=== PATIENT | male | born 1950 | race Caucasian/White ===

== ENCOUNTER 2022-02-25 13:59 | Emergency (ER) | payer MEDICARE, SELFPAY ==
[2022-02-25 14:06] VITALS: BP 138/79; PULSE 81; RESP 18; TEMP 36.4; O2SAT 99; BMI 24.4
--- NOTE | 2022-02-25 14:24 | CRLHL7_ITS ---
For Patients: As a result of the Century Cures Act, medical imaging exams and procedure reports are released immediately into your electronic medical record. You may view this report before your referring provider. If you have questions, please contact your health care provider. INDICATION: Chest pain. TECHNIQUE: Chest 2 views. COMPARISON: None. FINDINGS: Cardiovascular and mediastinum: Heart size and vasculature are normal in caliber and appearance. Lungs and pleural spaces: Lungs are clear. No sign of infiltrate or mass. No sign of pleural effusion. No pneumothorax. Bones and soft tissues: No significant findings. IMPRESSION: No acute or significant findings. Dictated by Vitaly De Jesus MD @ 02/25/2022 3:15:33 PM (Electronically Signed)
--- NOTE | 2022-02-25 14:24 | ED_ITS ---
HPI - Chest Pain General Date Seen: 02/25/22 <Jan Samaniego MD - Last Filed: 02/25/22 16:47> Chief Complaint: Chest Pain <Jan Samaniego MD - Last Filed: 02/25/22 16:47> Stated Complaint: Chest pain <Jan Samaniego MD - Last Filed: 02/25/22 16:47> Time Seen by Provider: 02/25/22 14:11 <Jan Samaniego MD - Last Filed: 02/25/22 16:47> Source: patient <Jan Samaniego MD - Last Filed: 02/25/22 16:47> Mode of arrival: ambulatory <Jan Samaniego MD - Last Filed: 02/25/22 16:47> Limitations: no limitations <Jan Samaniego MD - Last Filed: 02/25/22 16:47> History of Present Illness MD complaint: chest pain <Jan Samaniego MD - Last Filed: 02/25/22 16:47> Onset (ago): month(s) (1-2 months) <Jan Samaniego MD - Last Filed: 02/25/22 16:47> Timing of current episode: episodic <Jan Samaniego MD - Last Filed: 02/25/22 16:47> Prior episodes: Yes <Jan Samaniego MD - Last Filed: 02/25/22 16:47> Onset: other (Happens at rest and also with exertion) <Jan Samaniego MD - Last Filed: 02/25/22 16:47> Pain location: left chest and parasternal <Jan Samaniego MD - Last Filed: 02/25/22 16:47> Pain radiation: none <Jan Samaniego MD - Last Filed: 02/25/22 16:47> Severity: mild <Jan Samaniego MD - Last Filed: 02/25/22 16:47> Quality: tightness <Jan Samaniego MD - Last Filed: 02/25/22 16:47> Relieving factors: nothing and other (Seemingly improves with doing nothing at all.) <Jan Samaniego MD - Last Filed: 02/25/22 16:47> Exacerbating factors: nothing <Jan Samaniego MD - Last Filed: 02/25/22 16:47> Context: other (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) <Jan Samaniego MD - Last Filed: 02/25/22 16:47> Treatment prior to arrival: none <Jan Samaniego MD - Last Filed: 02/25/22 16:47> Risk Factors Coronary artery disease risk factors: none <Jan Samaniego MD - Last Filed: 02/25/22 16:47> Thoracic aortic dissection risk factors: none <Jan Samaniego MD - Last Filed: 02/25/22 16:47> Related Data Home Medications: Previous Rx's Medication Instructions Recorded alprazolam 1 mg tablet 1 mg PO QDAY PRN #30 tab 01/30/22 <Jan Samaniego MD - Last Filed: 02/25/22 16:47> Allergies/Adverse Reactions: Allergies Allergy/AdvReac Type Severity Reaction Status Date / Time No Known Drug Allergies Allergy Verified 02/25/22 14:06 <Jan Samaniego MD - Last Filed: 02/25/22 16:47> Review of Systems Status of ROS Reports: 10 or more systems reviewed and unremarkable except as noted in History and below <Jan Samaniego MD - Last Filed: 02/25/22 16:47> [facility] Medical History: Medical History (Updated 02/25/22 @ 18:18 by Ana Maria Matthews MD) Anxiety <Jan Samaniego MD - Last Filed: 02/25/22 16:47> Social History: Social History Smoking Status: Former smoker Second hand tobacco smoke exposure: No How often do you have a drink containing alcohol: never How often do you have six or more drinks on one occasion: Never AUDIT-C Alcohol total score: 0 Non-prescribed substance use: marijuana (any form) service: Yes <Jan Samaniego MD - Last Filed: 02/25/22 16:47> Exam Narrative Exam Narrative: Patient sitting in stable 1 in no apparent distress pupils equal round react to light there is no scleral icterus redness TMs are normal oropharynx is normal. A bit of a [place] field to the floor of his mouth and his anterior alize n. Consistent with previous radiation. Chest is clear bilaterally with no wheezes crackles noted, 2/6 systolic murmur, radiating to the aortic area but also to his left axilla. No palpable tenderness over his chest. Abdomen is soft there is no guarding no past with megaly bowel sounds are normal in organomegaly is noted. Extremities all move normally through full range of motion normal power in upper lower extremities normal pulses, and no edema. <Jan Samaniego MD - Last Filed: 02/25/22 16:47> Const Vital Signs, click to edit/add: Vital Signs - 24 hr 02/25/22 14:06 Temperature 97.5 F L Pulse Rate [Right Pulse Oximeter] 81 Respiratory Rate 18 Blood Pressure [Right Upper Arm] 138/79 Pulse Oximetry 99 <Jan Samaniego MD - Last Filed: 02/25/22 16:47> Vital Signs - 24 hr 02/25/22 14:06 Temperature 97.5 F L Pulse Rate [Right Pulse Oximeter] 81 Respiratory Rate 18 Blood Pressure [Right Upper Arm] 138/79 Pulse Oximetry 99 <Ana Maria Matthews MD - Last Filed: 02/25/22 18:26> Documenting provider has reviewed patient's vital signs: yes <Jan Samaniego MD - Last Filed: 02/25/22 16:47> Common normals: no apparent distress <Jan Samaniego MD - Last Filed: 02/25/22 16:47> Course Reevaluation(s) Reevaluation #2: Patient was signed out to me by Dr. Samaniego. Please see his note for full details. I was asked to follow up on his 2nd troponin as well as the CT scan of his chest. His 2nd troponin is 0. CT scan of his chest is read by Radiology as negative for pulmonary embolism or other acute findings. I have reviewed these results with the patient. I have clarified that while the troponins are negative, this does not mean that he could not have coronary artery disease, and would like him to follow up with Dr. Crain to arrange for stress testing. Dr. Samaniego has asked him to take 2 baby aspirin daily in the interim. If he were to develop severe persistent chest pain, shortness of breath, lightheadedness or fainting, etcetera, return at any time to the emergency department. He did have a question about his heart murmur, I have reviewed his previous echo in 2019 and he has mild mitral regurgitation as well as aortic stenosis. I have relayed that to him, and explained that neither of these are clinically significant at this time. <An aMaria Matthews MD - Last Filed: 02/25/22 18:26> Vital Signs Vital signs: Initial Vital Signs Temperature 97.5 F L 02/25/22 14:06 Temperature Source Temporal Artery Scan 02/25/22 14:06 Pulse Rate 81 02/25/22 14:06 Respiratory Rate 18 02/25/22 14:06 Blood Pressure 138/79 02/25/22 14:06 Blood Pressure Mean 98 02/25/22 14:06 Blood Pressure Position Sitting 02/25/22 14:06 Pulse Oximetry 99 02/25/22 14:06 Oxygen Delivery Method 02/25/22 14:06 Vital Signs Temperature 97.5 F L 02/25/22 14:06 Pulse Rate 81 02/25/22 14:06 Respiratory Rate 18 02/25/22 14:06 Blood Pressure 138/79 02/25/22 14:06 Pulse Oximetry 99 02/25/22 14:06 Temperature 97.5 F L 02/25/22 14:06 Pulse Rate 81 02/25/22 14:06 Respiratory Rate 18 02/25/22 14:06 Blood Pressure 138/79 02/25/22 14:06 Pulse Oximetry 99 02/25/22 14:06 <Jan Samaniego MD - Last Filed: 02/25/22 16:47> Initial Vital Signs Temperature 97.5 F L 02/25/22 14:06 Temperature Source Temporal Artery Scan 02/25/22 14:06 Pulse Rate 81 02/25/22 14:06 Respiratory Rate 18 02/25/22 14:06 Blood Pressure 138/79 02/25/22 14:06 Blood Pressure Mean 98 02/25/22 14:06 Blood Pressure Position Sitting 02/25/22 14:06 Pulse Oximetry 99 02/25/22 14:06 Oxygen Delivery Method 02/25/22 14:06 Vital Signs Temperature 97.5 F L 02/25/22 14:06 Pulse Rate 81 02/25/22 14:06 Respiratory Rate 18 02/25/22 14:06 Blood Pressure 138/79 02/25/22 14:06 Pulse Oximetry 99 02/25/22 14:06 Temperature 97.5 F L 02/25/22 14:06 Pulse Rate 81 02/25/22 14:06 Respiratory Rate 18 02/25/22 14:06 Blood Pressure 138/79 02/25/22 14:06 Pulse Oximetry 99 02/25/22 14:06 <Ana Maria Matthews MD - Last Filed: 02/25/22 18:26> MDM - Chest Pain MDM Narrative Medical decision making narrative: During the evaluation of this patient I considered multiple differential diagnosis is. The life-threatening differential diagnosis include coronary disease/[place], pulmonary embolism, pneumothorax, pneumonia, and aortic dissection. Other differential diagnosis included but were not limited to pericarditis, myocarditis, chest wall pain, GERD, esophageal rupture, rib fracture contusion, pleurisy, as well as other etiologies. <Jan Samaniego MD - Last Filed: 02/25/22 16:47> Medical Records Data Attestation: I reviewed the patient's medical records. <Jan Samaniego MD - Last Filed: 02/25/22 16:47> Lab Data Attestation: I reviewed the patient's lab results. <Jan Samaniego MD - Last Filed: 02/25/22 16:47> Labs: Lab Results 02/25/22 02/25/22 02/25/22 Range/Units 15:25 15:25 15:25 WBC 3.60 L (4.50-11.00) K/uL RBC 3.68 L (4.30-5.90) m/uL Hgb 12.4 L (13.5-17.5) gm/dL Hct 37.0 (37.0-53.0) % MCV 101 H (80-100) fL MCH 34 (26-34) pg MCHC 34 (32-36) gm/dL RDW Coeff of Jacinto 12.7 (11.5-15.5) % Plt Count 127 L (140-440) K/uL Neut % (Auto) 65.0 (42.0-72.0) % Lymph % (Auto) 17.8 L (20-44) % [place] % (Auto) 13.6 H (0.0-11.0) % Eos % (Auto) 2.2 (0.0-7.0) % Baso % (Auto) 1.1 (0.0-3.0) % Neut # (Auto) 2.30 (1.7-7.0) K/uL Lymph # (Auto) 0.60 L (0.90-2.90) K/uL [place] # (Auto) 0.50 (0.00-0.90) K/UL Eos # (Auto) 0.10 (0.00-0.50) K/uL Baso # (Auto) 0.00 (0.00-0.30) K/uL Abs Immat Gran (auto) 0.01 (0.00-0.30) K/uL INR 0.94 (0.91-1.10) APTT 25 (23-33) Seconds D-Dimer Quant (PE/DVT) 2.00 H (0.00-0.50) ug/ml Sodium 136 (135-149) mmol/L Potassium 4.7 (3.6-5.1) mmol/L Chloride 104 (96-114) mmol/L Carbon Dioxide 29 (20-32) mmol/L BUN 29 (7-30) mg/dL Creatinine 1.3 (0.5-1.5) mg/dL Estimated Creat Clear 52.25 Estimated GFR 58 ml/min Glucose 97 (60-115) mg/dL Calcium 9.3 (8.4-10.6) mg/dL NT-Pro-B Natriuret Pep 186 H (0-125) PG/mL POC Troponin I (0.01-0.04) ng/ml 02/25/22 02/25/22 Range/Units 15:25 17:10 WBC (4.50-11.00) K/uL RBC (4.30-5.90) m/uL Hgb (13.5-17.5) gm/dL Hct (37.0-53.0) % MCV (80-100) fL MCH (26-34) pg MCHC (32-36) gm/dL RDW Coeff of Jacinto (11.5-15.5) % Plt Count (140-440) K/uL Neut % (Auto) (42.0-72.0) % Lymph % (Auto) (20-44) % [place] % (Auto) (0.0-11.0) % Eos % (Auto) (0.0-7.0) % Baso % (Auto) (0.0-3.0) % Neut # (Auto) (1.7-7.0) K/uL Lymph # (Auto) (0.90-2.90) K/uL [place] # (Auto) (0.00-0.90) K/UL Eos # (Auto) (0.00-0.50) K/uL Baso # (Auto) (0.00-0.30) K/uL Abs Immat Gran (auto) (0.00-0.30) K/uL INR (0.91-1.10) APTT (23-33) Seconds D-Dimer Quant (PE/DVT) (0.00-0.50) ug/ml Sodium (135-149) mmol/L Potassium (3.6-5.1) mmol/L Chloride (96-114) mmol/L Carbon Dioxide (20-32) mmol/L BUN (7-30) mg/dL Creatinine (0.5-1.5) mg/dL Estimated Creat Clear Estimated GFR ml/min Glucose (60-115) mg/dL Calcium (8.4-10.6) mg/dL NT-Pro-B Natriuret Pep (0-125) PG/mL POC Troponin I 0.00 L 0.01 (0.01-0.04) ng/ml <Jan Smaaniego MD - Last Filed: 02/25/22 16:47> Lab Results 02/25/22 02/25/22 02/25/22 Range/Units 15:25 15:25 15:25 WBC 3.60 L (4.50-11.00) K/uL RBC 3.68 L (4.30-5.90) m/uL Hgb 12.4 L (13.5-17.5) gm/dL Hct 37.0 (37.0-53.0) % MCV 101 H (80-100) fL MCH 34 (26-34) pg MCHC 34 (32-36) gm/dL RDW Coeff of [place] 12.7 (11.5-15.5) % Plt Count 127 L (140-440) K/uL Neut % (Auto) 65.0 (42.0-72.0) % Lymph % (Auto) 17.8 L (20-44) % [place] % (Auto) 13.6 H (0.0-11.0) % Eos % (Auto) 2.2 (0.0-7.0) % Baso % (Auto) 1.1 (0.0-3.0) % Neut # (Auto) 2.30 (1.7-7.0) K/uL Lymph # (Auto) 0.60 L (0.90-2.90) K/uL [place] # (Auto) 0.50 (0.00-0.90) K/UL Eos # (Auto) 0.10 (0.00-0.50) K/uL Baso # (Auto) 0.00 (0.00-0.30) K/uL Abs Immat Gran (auto) 0.01 (0.00-0.30) K/uL INR 0.94 (0.91-1.10) APTT 25 (23-33) Seconds D-Dimer Quant (PE/DVT) 2.00 H (0.00-0.50) ug/ml Sodium 136 (135-149) mmol/L Potassium 4.7 (3.6-5.1) mmol/L Chloride 104 (96-114) mmol/L Carbon Dioxide 29 (20-32) mmol/L BUN 29 (7-30) mg/dL Creatinine 1.3 (0.5-1.5) mg/dL Estimated Creat Clear 52.25 Estimated GFR 58 ml/min Glucose 97 (60-115) mg/dL Calcium 9.3 (8.4-10.6) mg/dL NT-Pro-B Natriuret Pep 186 H (0-125) PG/mL POC Troponin I (0.01-0.04) ng/ml 02/25/22 02/25/22 Range/Units 15:25 17:10 WBC (4.50-11.00) K/uL RBC (4.30-5.90) m/uL Hgb (13.5-17.5) gm/dL Hct (37.0-53.0) % MCV (80-100) fL MCH (26-34) pg MCHC (32-36) gm/dL RDW Coeff of [place] (11.5-15.5) % Plt Count (140-440) K/uL Neut % (Auto) (42.0-72.0) % Lymph % (Auto) (20-44) % [place] % (Auto) (0.0-11.0) % Eos % (Auto) (0.0-7.0) % Baso % (Auto) (0.0-3.0) % Neut # (Auto) (1.7-7.0) K/uL Lymph # (Auto) (0.90-2.90) K/uL [place] # (Auto) (0.00-0.90) K/UL Eos # (Auto) (0.00-0.50) K/uL Baso # (Auto) (0.00-0.30) K/uL Abs Immat Gran (auto) (0.00-0.30) K/uL INR (0.91-1.10) APTT (23-33) Seconds D-Dimer Quant (PE/DVT) (0.00-0.50) ug/ml Sodium (135-149) mmol/L Potassium (3.6-5.1) mmol/L Chloride (96-114) mmol/L Carbon Dioxide (20-32) mmol/L BUN (7-30) mg/dL Creatinine (0.5-1.5) mg/dL Estimated Creat Clear Estimated GFR ml/min Glucose (60-115) mg/dL Calcium (8.4-10.6) mg/dL NT-Pro-B Natriuret Pep (0-125) PG/mL POC Troponin I 0.00 L 0.01 (0.01-0.04) ng/ml <Ana Maria Matthews MD - Last Filed: 02/25/22 18:26> Imaging Data Chest x-ray: Attestation: I have reviewed the pertinent imaging results. <Jan Samaniego MD - Last Filed: 02/25/22 16:47> My impression: No acute changes are noted on chest x-ray. <Jan Samaniego MD - Last Filed: 02/25/22 16:47> Radiologist's impression: Patient: AAKASH THRASHER Facility:[facility] Patient ID:?[id number] Site Patient ID:?[id number] Site :?[id number] Study:?XRay Chest 2 VIEWS-02/25/2022 3:12:37 PM Ordering Physician:Susan Montoya Final Report: INDICATION: Chest pain. TECHNIQUE: Chest 2 views. COMPARISON: None. FINDINGS: Cardiovascular and mediastinum: Heart size and vasculature are normal in caliber and appearance. Lungs and pleural spaces: Lungs are clear. No sign of infiltrate or mass. No sign of pleural effusion. No pneumothorax. Bones and soft tissues: No significant findings. IMPRESSION: No acute or significant findings. Dictated by Vitaly De Jesus MD @ 02/25/2022 3:15:33 PM (Electronic Signature) <Jan Samaniego MD - Last Filed: 02/25/22 16:47> ECG Data Attestation: I personally reviewed and interpreted this ECG as follows: <Jan Samaniego MD - Last Filed: 02/25/22 16:47> ECG interpretation date: 02/25/22 <Jan Samaniego MD - Last Filed: 02/25/22 16:47> ECG interpretation time: 15:36 <Jan Samaniego MD - Last Filed: 02/25/22 16:47> Prior ECG tracings: not available for review <Jan Samaniego MD - Last Filed: 02/25/22 16:47> Interpretation: EKG shows normal sinus rhythm with normal EKG with no acute ST wave changes. No old EKG to compare to. <Jan Samaniego MD - Last Filed: 02/25/22 16 :47> Discharge Plan Discharge Clinical Impression: Chest pain <Jan Samaniego MD - Last Filed: 02/25/22 16:47> Patient Disposition: Home, Self-Care <Jan Samaniego MD - Last Filed: 02/25/22 16:47> Condition: Stable <Jan Samaniego MD - Last Filed: 02/25/22 16:47> Instructions: Chest Pain (ED) <Jan Samaniego MD - Last Filed: 02/25/22 16:47> Additional Instructions: Follow-up with Dr. Crain in the next few days for recheck and to arrange a stress test. Take 2 baby aspirin a day as recommended by Dr. Samaniego. Review of your echo in 2020 showed mild aortic stenosis and mild mitral regurgitation. At this time neither of these findings is significant. If you have severe or persistent chest pain, shortness of breath, lightheadedness or fainting, or other worsening, return at any time to the emergency department. <Jan Samaniego MD - Last Filed: 02/25/22 16:47> Prescriptions: No Action alprazolam 1 mg tablet 1 mg PO QDAY PRN (Reason: anxiety) Qty: 30 0RF <Jan Samaniego MD - Last Filed: 02/25/22 16:47> Follow Up/Referrals: Stephon Crain MD [Primary Care Provider] - <Jan Samaniego MD - Last Filed: 02/25/22 16:47> Stand Alone Forms: [facility] Info Instructions <Jan Samaniego MD - Last Filed: 02/25/22 16:47>
[2022-02-25] MEDS: ASPIRIN 81 MG TAB.CHEW 324 MG PO (15:18)
[2022-02-25 15:30] VITALS: BP 154/91; PULSE 65; O2SAT 98
[2022-02-25 15:39] LABS: Basophils Percent Auto 1.1 % (0.0-3.0); Eosinophils Percent Auto 2.2 % (0.0-7.0); Hemoglobin* 12.4 gm/dL (13.5-17.5); Immature Granulocytes Abs Auto 0.01 K/uL (0.00-0.30); Lymphocytes Percent Auto 17.8 % (20-44); Mean Corpuscular HGB Conc 34 gm/dL (32-36); Mean Corpuscular Hemoglobin 34 pg (26-34); Mean Corpuscular Volume 101 fL (80-100); Monocytes Percent Auto 13.6 % (0.0-11.0); Platelet Count* 127 K/uL (140-440); RDW Coefficient of Variation % 12.7 % (11.5-15.5); Red Blood Count 3.68 m/uL (4.30-5.90)
[2022-02-25 15:43] LABS: Slide Review Reflex No
[2022-02-25 15:55] LABS: Chloride* 104 mmol/L (96-114); Sodium* 136 mmol/L (135-149)
[2022-02-25 15:56] LABS: Potassium* 4.7 mmol/L (3.6-5.1)
[2022-02-25 15:58] LABS: Blood Urea Nitrogen* 29 mg/dL (7-30); Carbon Dioxide* 29 mmol/L (20-32); Creatinine* 1.3 mg/dL (0.5-1.5); Est. Creatinine Clearance* 52.25; Estimated Glomerular Filt Rate 58 ml/min; INR 0.94 (0.91-1.10)
[2022-02-25 15:59] LABS: Calcium* 9.3 mg/dL (8.4-10.6); Glucose* 97 mg/dL (60-115); Partial Thromboplastin Time* 25 Seconds (23-33)
[2022-02-25 16:00] VITALS: BP 148/88; PULSE 62; O2SAT 98
[2022-02-25 16:08] LABS: NT Pro B Type NatriureticPept* 186 PG/mL (0-125)
--- NOTE | 2022-02-25 16:28 | CRLHL7_ITS ---
For Patients: As a result of the Century Cures Act, medical imaging exams and procedure reports are released immediately into your electronic medical record. You may view this report before your referring provider. If you have questions, please contact your health care provider. INDICATION: Elevated D-dimer with chest pain COMPARISON: Portions of a PET-CT dated October 03, 2021 TECHNIQUE: : CT examination of the chest was performed with the uneventful intravenous administration of 95 cc of Isovue 370 while thin axial sections were obtained from above the apices of the lungs to the lung bases. Please note that all CT scans at this facility use dose modulation, iterative reconstruction, and/or weight-based dosing when appropriate to reduce radiation dose to as low as reasonably achievable. FINDINGS: : HEART and MEDIASTINUM: The heart size is normal. There is no mediastinal or hilar adenopathy or mass. There is no pericardial effusion.Atherosclerotic vascular and aortic valvular calcifications PULMONARY ARTERIAL CIRCULATION: There is no visible intraluminal filling defect to suggest pulmonary embolus. LUNGS: The lungs show no focal consolidation or mass. The airways appear normal. Left lower lobe granuloma. Minimal linear atelectasis at the bases. PLEURAL SPACES: There is no pleural effusion, pneumothorax or pleural based mass. VISUALIZED UPPER ABDOMEN: Hepatic steatosis. Otherwise, the limited visualized upper abdominal structures appear normal. OSSEOUS STRUCTURES: Age-appropriate appearance. No acute fracture or destructive process. TUBES and LINES: None. IMPRESSION: 1. There is no finding of pulmonary embolus. 2. The lungs show no focal consolidation, infiltrate or mass. Normal pleural spaces. Evidence of remote granulomatous infection. 3. Hepatic steatosis. Please note that all CT scans at this facility use dose modulation, iterative reconstruction, and/or weight-based dosing when appropriate to reduce radiation dose to as low as reasonably achievable. Dictated by Moustapha Contreras MD @ 02/25/2022 5:42:21 PM (Electronically Signed)
[2022-02-25] MEDS: 0.9 % SODIUM CHLORIDE 500 ML 500 ML IV (17:14)
[2022-02-25 17:25] LABS: Troponin, Point-of-Care* 0.01 ng/ml (0.01-0.04)
[2022-02-25 17:30] VITALS: BP 160/91; PULSE 64; O2SAT 98
[2022-02-25 18:00] VITALS: BP 162/91; PULSE 64; O2SAT 98
== END 2022-02-25 18:27 | disposition home or self-care (01) ==
PROVIDERS: Family Medicine; Emergency Provider Emergency Medicine; PCP Internal Medicine
DX: R07.9 Chest pain, unspecified (principal)
CPT/HCPCS: 36415; 71046; 71260; 80048; 83880; 84484; 85025; 85379; 85610; 85730; 93005; 96360; 99284; 99285; A9270; J7120; Q9967

== ENCOUNTER 2022-03-06 12:43 | Outpatient (CLI) | payer MEDICARE, SELFPAY ==
[2022-03-06 13:54] VITALS: BP 146/82; PULSE 87; RESP 18
--- NOTE | 2022-03-06 13:55 | P.STN_ITS ---
Stress Test Note Date Time Seen by Provider: 13:40 Date Seen: 03/06/22 Date of test: 03/06/22 Providers Referring provider: Stephon Crain Primary care provider: Stephon Crain Stress test physician: Lalitha Gloria Stress Test Note Stress test ordered: Stress Echo Indication for test: Chest pain, patient's cardiac stress test medical history form reviewed. Stress test medicine: None Results discussion: Resting EK beats per minute, sinus rhythm Resting blood pressure: 171/89 Stress test: Patient exercised on the treadmill following standard Aric protocol. He exercised to 7 minutes 26 seconds, stopped due to reaching his heart rate and being too dyspneic from the level of exertion. He did not experience any chest pain. Patient had some premature supraventricular beats in recovery as well as an occasional PVC. No arrhythmia noted. He achieved 8.9 Mets. He had a maximum heart rate of 143 which was 114% of a calculated target heart rate of 125. His calculated maximal heart rate was 147. His rate pressu re product was 21,344. No ischemic changes noted based on EKG criteria. He had good heart rate and blood pressure recovery. Impression: Subjectively negative, objectively negative EKG portion of this stress test for ischemia. Follow up suggested: Await echo images to be read by Cardiology. Dr. Ibrahima patterson should get a formal report and patient should hear from him. In the meantime, patient will be discharged to home. I have discussed activity as tolerated, do not recommend strenuous activity as to provoke any symptoms. If ever he has any chest pain develops, any sense of any arrhythmias or difficulty breathing, he is to seek evaluation in the emergency room.
--- OUTSIDE RECORDS SUMMARY | 2022-03-12 04:10 | XMS_ITS | Continuity of Care Document ---
:1950 Author Organization [facility] Care Team Providers Name Role Phone [facility] Unavailable Unavailable Problems Combined list of problems from Department of Defense and Veterans Affairs facilities. It does not include entries that were removed or entered in error. 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 2020 Entered ( CBOC) By: JEREMIAH WALKER Comment: aortic sinus 4.2 cm 07/2020 Aortic valve Active Condition Jan 15, [facility] stenosis 2020 Entered (CBOC) By: JEREMIAH WALKER Comment: mild per 07/2020 echo Benign prostatic Active Condition MEIR BUENROSTRO hyperplasia (SNOMED (CBOC) [place] 468101606) Cataract nos Active Condition [place] [facility] Erectile Active Condition CARY[place] dysfunction (SNOMED (CBOC) CT 082323868) Hydrocele of testis Active Condition [place] (CBOC) Hyperlipidemia Active Condition [place] STER (CBOC) Hypertension Active Condition [facility] [facility] (SNOMED CT (CBOC) 82301851) Impaired fasting Active Condition MEIR BUENROSTRO glucose (CBOC) 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, 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 2020 Entered (CBOC) By: JEREMIAH WALKER Comment: 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 Obesity Active Condition CARY[place] (CBOC) Polyp of colon Active Condition [place] STER (SNOMED CT (CBOC) 77608796) Alcohol Abuse Inactive Condition 06/07/2013 [place] (ICD-9-CM 305.00) (C BOC) Anxiety State, Inactive Condition 06/07/2013 [place] unspec (CBOC) Bunion Inactive Condition 05/17/2018 Jun 07, [facility] [place] 2012 Entered (CBOC) By: SAVANNAH BOYD Comment: Right Depressive Disorder Inactive Condition 06/07/2013 [place] NOS (CBOC) Dermatitis * Inactive Condition 06/07/[address] (ICD-9-CM 692.9) (CB OC) Impotence of Inactive Condition 05/20/2019 [place] organic origin [facility] (ICD-9-CM 607.84) Marijuana Inactive Condition 06/07/2013 [place] Dependence (CBOC) Continuous (ICD-9-CM 304.31) Obesity * (ICD-9-CM Inactive Condition 06/07/2013 CARY[place] 278.00) (CBOC) Diagnosis: active Diagnosis [place] ICD-10-CM Z71.89 [facility] Other specified counselingwith Provider Comments: Other specified counseling Diagnosis: active Diagnosis [place] IS ICD-10-CM D64.9 [facility] CS Anemia, unspecifiedwith Provider Comments: Anemia, unspecified Diagnosis: active Diagnosis [place] ICD-10-CM Z23 (CBOC) Encounter for immunizationwith Provider Comments: Encounter for any immunization Diagnosis: active Diagnosis [place] ICD-10-CM R21 Rash ( CBOC) and other nonspecific skin eruptionwith Provider Comments: Rash and other Nonspecific Skin Eruption Diagnosis: active Diagnosis [place] ICD-10-CM Z00.00 (CB OC) Encntr for general adult medical exam w/o abnormal findingswith Provider Comments: Encntr for general adult medical exam w/o abnormal findings Medications Combined list of outpatient medications from Department of Defense and Veterans Affairs facilities. Medications provided include 1) outpatient medications from the last 15 months, and 2) patient-reported medications. Medication Details Route Status Patient Prescription Prescription Last Ordering Order Source Instructions Expires Number Dispense Provider Date Date ALPRAZOLAM TAKE ACTIVE SHRUTHIEAR 07/16/ MEIR HEST TAB 0.5MG IF LE C 2016 ER NEEDED (CBOC) FOR ANXIETY ASPIRIN TAKE ONE ORALLY ACTIVE MAYCO WALKER 05/17/ RO CHEST 81MG TAB,EC TABLET 2017 ER BY MOUTH (CBOC) ATORVASTATI TAKE ORALLY ACTIVE 11/27/2022 [id number] AARON CHR 11/26/ [place] CA 20MG ONE-HALF 2 2021 ER TAB TABLET (CBOC) BY MOUTH EVERY DAY FOR CHOLESTE ROL CAMPHOR APPLY TOPICA ACTIVE 11/23/2022 [id number] AARON,CHR 11/26/ [facility] 0.5%/MENTHO THIN LLY 2 2021 ER L 0.5% LAYER (CBOC) LOTION TOPICALL Y THREE TIMES A DAY NEEDED FOR ITCHING CYANOCOBALA TAKE ONE ORALLY ACTIVE MAYCO WALKER 11/26 / [facility] MIN 1000MCG TABLET IS2021 ER TAB BY MOUTH (CBOC) EVERY DAY FINASTERIDE TAKE ONE ORALLY ACTIVE LAZER,CHR 11/26 / [facility] 5MG TAB TABLET IS2021 ER BY MOUTH (CBOC) EVERY DAY FOLIC ACID TAKE ONE ORALLY ACTIVE LAZER,CHR 11/26/ [facility] 1MG TAB TABLET IS2021 ER BY MOUTH (CBOC) EVERY DAY LORATADINE TAKE ONE ORALLY ACTIVE 11/23/2022 [id number] LA ZER,CHR 11/26/ [facility] 10MG TAB TABLET 2 2021 ER BY MOUTH (CBOC) EVERY DAY MULTIVITAMI TAKE ONE ORALLY ACTIVE LAZER,CHR 05/17 / [place] NS CAP/TAB TABLET 2017 ER BY MOUTH (CBOC) EVERY DAY TRIAMCINOLO APPLY TOPICA ACTIVE 11/23/2022 [id number] LAZER, CHR 11/26/ [place] THIN LLY 2 2021 ER ACETONIDE LAYER (CBOC) 0.1% TOPICALL CREAM,TOP Y TWICE A DAY AVOID FACE,HARISH IN and ARMPITS *FOR EXTERNAL USE ONLY APPLY TO RASH VANICREAM APPLY TOPICA ACTIVE 11/23/2022 [id number] LAZER,CH R 11/26/ [place] THIN LLY 2 2021 ER LAYER (CBOC) TOPICALL Y TWICE A DAY FOR DRY SKIN Allergies, Adverse Reactions, Alerts Combined list of allergies from Department of Defense and Veterans Affairs facilities. It does not include entries that were removed or entered in error. Substance Category Reaction Severity Reaction Status Date Comments S ource type Reported DOXAZOSIN Propensity Anxiety Propensity active [place] to adverse to adverse 1 S [employer] [facility] [facility] reactions reactions to drug to drug (finding) (finding) Immunizations Combined list of available immunizations from the Department of Defense and Veterans Affairs facilities. Immunization Series Date Administered Site Reaction Lot CVX Drug St atus Comments Source Given By Number Code Cold Meat Cook ZOSTER 2 complet [facility] EST RECOMBINANT 2021 ed ER (CBOC) ZOSTER 1 complet [place] EST RECOMBINANT 2021 ed ER (CBOC) COVID-19 3 complet [place] ([employer]), 2020 ed [place] [facility] MRNA, LNP-S, H CS PF, 30 MCG/0.3 ML DOSE INFLUENZA, complet [facility] UNSPECIFIED 2020 ed PH ARMAC FORMULATION Y COVID-19 2 complet [place] (PFIZER), 2020 ed [place] VA MRNA, LNP-S, H CS PF, 30 MCG/0.3 ML DOSE COVID-19 1 complet [place] (PFIZER), 2020 ed [place] VA MRNA, LNP-S, H CS PF, 30 MCG/0.3 ML DOSE INFLUENZA, complet [facility] INJECTABLE, 2019 ed ER QUADRIVALENT, (CBOC) PRESERVATIVE FREE INFLUENZA, complet [place] SEASONAL, 2018 ed ER INJECTABLE, (C BOC) PRESERVATIVE FREE INFLUENZA, complet [place] SEASONAL, 2017 ed ER INJECTABLE, (C BOC) PRESERVATIVE FREE INFLUENZA, complet [facility] HIGH DOSE 2017 ed ER SEASONAL (CBOC ) TD (ADULT), 2 complet per MIIC [place] LF TETANUS 2017 ed DEBBIE S VA TOXOID, HCS PRESERVATIVE FREE, ADSORBED INFLUENZA, complet [place] HIGH DOSE 2016 ed ER SEASONAL (CBOC ) PNEUMOCOCCAL complet wyet h [facility] CONJUGATE PCV 2015 ed pharm. , ER 13 [id number], (CBOC) 4-2016 INFLUENZA, complet MIIC [place] SEASONAL, 2014 ed [facility] INJECTABLE HCS INFLUENZA, complet pt [place] UNSPECIFIED 2013 ed reportin g [facility] FORMULATION HC S INFLUENZA, complet [place] UNSPECIFIED 2012 ed ER FORMULATION (C BOC) PNEUMOCOCCAL, complet [employer] and [place] UNSPECIFIED 2012 ed Co[employer] Inc ER FORMULATION Lot (C BOC) #[id number] Exp. 08/06/2014 INFLUENZA, complet [place] UNSPECIFIED 2011 ed ER FORMULATION (C BOC) INFLUENZA, complet [place] UNSPECIFIED 2010 ed ER FORMULATION (C BOC) ZOSTER LIVE complet [employer] and [facility] 2010 ed [employer] ER [id number] (CBOC) 03/19/12 INFLUENZA, complet [place] UNSPECIFIED 2009 ed OL IS [facility] FORMULATION HC S TDAP complet [place] 2006 ed OL[place] MS HCS TD(ADULT) complet [place] UNSPECIFIED 2004 ed [place] [facility] FORMULATION HC S Results Combined list of recent chemistry, hematology and other laboratory results from Department of Defense and Veterans Affairs, ranging from 15 months to all on record, depending upon the facility. Order Results Value Reference Date Interpretation Specimen Commen ts Source Name Range B 12 COBALAMIN 649 213 - 816 01/23 Specimen Typ e: SERUM CARY[place] (VITAMIN /2021 No comment ente red. (CBOC) B12) Ordering Provid er: AURA WALKER [MASS/VOLU Report Relea sed Date/Time: Nov 26, 2021 07:53 AM ME] IN Reporting Lab: [facility] SERUM OR [address] [place] [facility] [address] PLASMA Performing Lab: [facility] [address] [place] [address] CBC & LEUKOCYTES 4.63 4.0 - 11.0 01/23 Specimen T ype: BLOOD [place]ARY[place] DIFF [#/VOLUME] /2021 Comment: Aut omated Differential Performed (CBOC) IN BLOOD Ordering Provi payton: AURA WALKER BY Report Released Date/Time: Nov 26, 2021 07:53 AM AUTOMATED Reporting Lab : [facility] [address] [place] [address] Performing Lab: [facility] [address] [place] [address] CBC & ERYTHROCYT 3.64 4.6 - 6.2 01/23 L Specimen Ty pe: BLOOD [place]ARY[place] DIFF ES /2021 Comment: Automa adama Differential Performed (CBOC) [#/VOLUME] Ordering Pro vider: AURA WALKER IN BLOOD Report Release d Date/Time: Nov 26, 2021 07:53 AM BY Reporting Lab: [facility] AUTOMATED [place] [address] COUNT Performing Lab: [facility] [address] [place] [address] CBC & HEMOGLOBIN 12.3 13.5 - 01/23 L Specimen Type : BLOOD [place]ARY[place] DIFF [MASS/VOLU 17.9 /2021 Comment: Aut omated Differential Performed (CBOC) ME] IN Ordering Provid er: AURA WALKER BLOOD Report Released Date/Time: Nov 26, 2021 07:53 AM Reporting Lab: [facility] [address] [place] [facility] [address] Performing Lab: [facility] [address] [place] [facility] [address] CBC & HEMATOCRIT 36.8 41 - 54 01/23 L Specimen Type : BLOOD [place] DIFF [VOLUME /2021 Comment: Automa adama Differential Performed (CBOC) FRACTION] Ordering Prov ider: AURA WALKER OF BLOOD Report Release d Date/Time: Nov 26, 2021 07:53 AM BY Reporting Lab: [facility] AUTOMATED [address] [place] [facility] [address] COUNT Performing Lab: [facility] [address] [place] [facility] [address] CBC & MCV 101.1 80 - 100 01/23 H Specimen Type: BLOOD [place]ARY[place] DIFF [ENTITIC /2021 Comment: Autom ated Differential Performed (CBOC) VOLUME] BY Ordering Pro vider: AURA WALKER AUTOMATED Report Releas ed Date/Time: Nov 26, 2021 07:53 AM COUNT Reporting Lab: [facility] [address] [place] [facility] [address] Performing Lab: [facility] [address] [place] [facility] [address] CBC & MCH 33.8 27 - 33 01/23 H Specimen Type: B LOOD CARYL DIFF [ENTITIC /2021 Comment: Autom ated Differential Performed (CBOC) MASS] BY Ordering Provi payton: AURA WALKER AUTOMATED Report Releas ed Date/Time: Nov 26, 2021 07:53 AM COUNT Reporting Lab: [facility] [address] [place] [address] Performing Lab: [facility] [address] [place] [facility] [address] CBC & MCHC 33.4 32.0 - 01/23 Specimen Type: B LOOD CARY[place] DIFF [MASS/VOLU 37.5 /2021 Comment: Aut omated Differential Performed (CBOC) ME] BY Ordering Provid er: AURA WALKER AUTOMATED Report Releas ed Date/Time: Nov 26, 2021 07:53 AM COUNT Reporting Lab: [facility] [address] [place] [facility] [address] Performing Lab: [facility] [address] [place] [facility] [address] CBC & PLATELETS 156 150 - 400 01/23 Specimen Typ e: BLOOD CARYL DIFF [#/VOLUME] /2021 Comment: Aut omated Differential Performed (CBOC) IN BLOOD Ordering Provi payton: AURA WALKER BY Report Released Date/Time: Nov 26, 2021 07:53 AM AUTOMATED Reporting Lab : [facility] [address] [place] [address] Performing Lab: [facility] [address] [place] [address] CBC & PLATELET 10.7 7.4 - 10.4 01/23 H Specimen Typ e: BLOOD [place]ARY[place] DIFF MEAN /2021 Comment: Automa adama Differential Performed (CBOC) VOLUME Ordering Provid er: AURA WALKER [ENTITIC Report Release d Date/Time: Nov 26, 2021 07:53 AM VOLUME] IN Reporting La b: [facility] BLOOD BY [address] [place] [address] AUTOMATED Performing La b: [facility] [address] [place] [address] CBC & NEUTROPHIL 72.6 01/23 Specimen Type : BLOOD [place] DIFF S/100 /2021 Comment: Automa adama Differential Performed (CBOC) LEUKOCYTES Ordering Pro vider: AURA WALKER IN BLOOD Report Release d Date/Time: Nov 26, 2021 07:53 AM BY MANUAL Reporting Lab : [facility] [address] [place] [address] Performing Lab: [facility] [address] [place] [address] CBC & LYMPHOCYTE 15.1 01/23 Specimen Type : BLOOD [place] DIFF S/100 /2021 Comment: Automa adama Differential Performed (CBOC) LEUKOCYTES Ordering Pro vider: AURA WALKER IN BLOOD Report Release d Date/Time: Nov 26, 2021 07:53 AM BY MANUAL Reporting Lab : [facility] [address] [place] [address] Performing Lab: [facility] [address] [place] [address] CBC & MONOCYTES/ 7.8 01/23 Specimen Type : BLOOD [place] DIFF 100 /2021 Comment: Automa adama Differential Performed (CBOC) LEUKOCYTES Ordering Pro vider: AURA WALKER IN BLOOD Report Release d Date/Time: Nov 26, 2021 07:53 AM BY Reporting Lab: [facility] [place] [address] COUNT Performing Lab: [facility] [address] [place] [address] CBC & EOSINOPHIL 3.0 01/23 Specimen Type : BLOOD [place]ARY[place] DIFF S/100 /2021 Comment: Automa adama Differential Performed (CBOC) LEUKOCYTES Ordering Pro vider: AURA WALKER IN BLOOD Report Release d Date/Time: Nov 26, 2021 07:53 AM BY Reporting Lab: [facility] AUTOMATED [facility] [address] COUNT Performing Lab: [facility] [address] [place] [facility] [address] CBC & BASOPHILS/ 1.5 01/23 Specimen Type : BLOOD CARY[place] DIFF 100 /2021 Comment: Automa adama Differential Performed (CBOC) LEUKOCYTES Ordering Pro vider: AURA WALKER IN BLOOD Report Release d Date/Time: Nov 26, 2021 07:53 AM BY MANUAL Reporting Lab : [facility] [address] [place] [facility] [address] Performing Lab: [facility] [address] [place] [facility] [address] CBC & ERYTHROCYT 13.3 11.5 - 01/23 Specimen Type : BLOOD [place] DIFF E 14.5 /2021 Comment: Automa adama Differential Performed (CBOC) DISTRIBUTI Ordering Pro vider: AURA WALKER ON WIDTH Report Release d Date/Time: Nov 26, 2021 07:53 AM [RATIO] BY Reporting La b: [facility] AUTOMATED [facility] [address] COUNT Performing Lab: [facility] [address] [place] [facility] [address] CBC & LYMPHOCYTE 0.70 1.0 - 4.0 01/23 L Specimen Ty pe: BLOOD CARY[place] DIFF S /2021 Comment: Automa adama Differential Performed (CBOC) [#/VOLUME] Ordering Pro vider: AURA WALKER IN BLOOD Report Release d Date/Time: Nov 26, 2021 07:53 AM BY Reporting Lab: [facility] AUTOMATED [facility] [address] COUNT Performing Lab: [facility] [address] [place] [facility] [address] CBC & MONOCYTES 0.36 0.1 - 1.0 01/23 Specimen Typ e: BLOOD CARYL DIFF [#/VOLUME] /2021 Comment: Aut omated Differential Performed (CBOC) IN BLOOD Ordering Provi payton: AURA WALKER BY Report Released Date/Time: Nov 26, 2021 07:53 AM AUTOMATED Reporting Lab : [facility] [address] [place] [address] Performing Lab: [facility] [place] [address] CBC & NEUTROPHIL 3.36 2.0 - 7.7 01/23 Specimen Ty pe: BLOOD CARYL DIFF S /2021 Comment: Automa adama Differential Performed (CBOC) [#/VOLUME] Ordering Pro vider: AURA WALKER IN BLOOD Report Release d Date/Time: Nov 26, 2021 07:53 AM BY Reporting Lab: [facility] AUTOMATED [address] [place] [facility] [address] COUNT Performing Lab: [facility] [address] [place] [facility] [address] CBC & EOSINOPHIL 0.14 0 - 0.5 01/23 Specimen Type : BLOOD CARYL DIFF S /2021 Comment: Automa adama Differential Performed (CBOC) [#/VOLUME] Ordering Pro vider: AURA WALKER IN BLOOD Report Release d Date/Time: Nov 26, 2021 07:53 AM BY Reporting Lab: [facility] AUTOMATED [address] [place] [facility] [address] COUNT Performing Lab: [facility] [address] [place] [facility] [address] CBC & BASOPHILS 0.07 0 - 0.2 01/23 Specimen Type: BLOOD CARYL DIFF [#/VOLUME] /2021 Comment: Aut omated Differential Performed (CBOC) IN BLOOD Ordering Prov ider: AURA WALKER BY Report Released Date/Time: Nov 26, 2021 07:53 AM AUTOMATED Reporting Lab : [facility] [address] [place] [facility] [address] Performing Lab: [facility] [address] [place] [facility] [address] CBC & IG(META,MY 0.0 01/23 Specimen Type : BLOOD CARYL DIFF PRESTON,PRO) /2021 Comment: Autom ated Differential Performed (CBOC) Ordering Provid er: AURA WALKER Report Released Date/Time: Nov 26, 2021 07:53 AM Reporting Lab: [facility] [address] [place] [facility] [address] Performing Lab: [facility] [address] [place] [facility] [address] CBC & IMMATURE 0.00 0 - 0.1 01/23 Specimen Type: BLOOD CARYL DIFF GRANULOCYT /2021 Comment: Aut omated Differential Performed (CBOC) ES Ordering Provid er: AURA WALKER [PRESENCE] Report Relea sed Date/Time: Nov 26, 2021 07:53 AM IN BLOOD Reporting Lab: [facility] BY [address] [place] [address] AUTOMATED Performing La b: [facility] [address] [place] [address] CBC & RETICULOCY 39.6 28.2 - 01/23 H Specimen Type : BLOOD CARYL DIFF TE 36.6 /2021 Comment: Automa adama Differential Performed (CBOC) PRODUCTION Ordering Pro vider: AURA WALKER INDEX Report Released Date/Time: Nov 26, 2021 07:53 AM Reporting Lab: [facility] [address] [place] [address] Performing Lab: [facility] [address] [place] [address] FOLATE FOLATE 17.0 7.0 01/23 Specimen Type: S LINDY CARYL [MASS/VOLU /2021 No comment en tered. (CBOC) ME] IN Ordering Provid er: AURA WALKER SERUM OR Report Release d Date/Time: Nov 26, 2021 07:53 AM PLASMA Reporting Lab: [facility] [address] [place] [address] Performing Lab: [facility] [address] [place] [address] IRON IRON 137 65 - 175 01/23 Specimen Type: SERUM CARYL GROUP [MASS/VOLU /2021 No comment en tered. (CBOC) ME] IN Ordering Provid er: AURA WALKER SERUM OR Report Release d Date/Time: Nov 26, 2021 07:53 AM PLASMA Reporting Lab: [facility] [address] [place] [address] Performing Lab: [facility] [address] [place] [address] IRON IRON 348 250 - 425 01/23 Specimen Type: SERUM CARYL GROUP BINDING /2021 No comment enter ed. (CBOC) CAPACITY Ordering Provi payton: AURA WALKER [MASS/VOLU Report Relea sed Date/Time: Nov 26, 2021 07:53 AM ME] IN Reporting Lab: [facility] SERUM OR [address] [place] [address] PLASMA Performing Lab: [facility] [address] [place] [address] IRON FERRITIN 69.6 21.8 - 01/23 Specimen Type: SERUM CARYL GROUP [MASS/VOLU 274.7 No comment en tered. (CBOC) ME] IN Ordering Provid er: AURA WALKER SERUM OR Report Release d Date/Time: Nov 26, 2021 07:53 AM PLASMA Reporting Lab: [facility] [address] [place] [facility] [address] Performing Lab: [facility] [address] [place] [facility] [address] IRON IRON 39 20 - 50 01/23 Specimen Type: S LINDY CARYL GROUP SATURATION /2021 No comment en tered. (CBOC) Ordering Provid er: AURA WALKER Report Released Date/Time: Nov 26, 2021 07:53 AM Reporting Lab: [facility] [address] [place] [facility] [address] Performing Lab: [facility] [address] [place] [facility] [address] IRON TRANSFERRI 278 163 - 382 01/23 Specimen Ty pe: SERUM CARYL GROUP N /2021 No comment enter ed. (CBOC) [MASS/VOLU Ordering Pro vider: AURA WALKER ME] IN Report Released Date/Time: Nov 26, 2021 07:53 AM SERUM OR Reporting Lab: [facility] PLASMA [place] [address] Performing Lab: [facility] [place] [address] PERIPHERA ERYTHROCYT SLIDES 01/23 Specimen Ty pe: BLOOD CARYL L SMEAR E MADE No comment enter ed. (CBOC) PATHOLOGI MORPHOLOGY Ordering P rovider: AURA WALKER ST REVIEW FINDING Report Releas ed Date/Time: Nov 26, 2021 07:53 AM [IDENTIFIE Reporting La b: [facility] R] IN [place] [address] BLOOD Performing Lab: [facility] [address] [place] [facility] [address] RETICS RETICULOCY 0.0582 0.0300 - 01/23 Specimen Typ e: BLOOD CARYL BRII/100 0.1000 /2021 Comment: Automa adama Differential Performed (CBOC) ERYTHROCYT Ordering Pro vider: AURA WALKER ES IN Report Released Date/Time: Nov 26, 2021 07:53 AM BLOOD BY Reporting Lab: [facility] AUTOMATED [address] [facility] [address] COUNT Performing Lab: [facility] [address] [place] [address] RETICS RETICULOCY 1.60 0.6 - 2.0 01/23 Specimen Ty pe: BLOOD CARYL BRII/100 /2021 Comment: Automa adama Differential Performed (CBOC) ERYTHROCYT Ordering Pro vider: AURA WALKER ES IN Report Released Date/Time: Nov 26, 2021 07:53 AM BLOOD BY Reporting Lab: [facility] AUTOMATED [address] [place] [facility] [address] COUNT Performing Lab: [facility] [address] [place] [facility] [address] RETICS IMMATURE 9.4 1.0 - 14.0 01/23 Specimen Typ e: BLOOD CARYL RETICULOCY /2021 Comment: Aut omated Differential Performed (CBOC) BRII/RETICU Ordering Pro vider: AURA WALKER LOCYTES.TO Report Relea sed Date/Time: Nov 26, 2021 07:53 AM MAYANK IN Reporting Lab: [facility] BLOOD [address] [place] [facility] [address] Performing Lab: [facility] [address] [place] [facility] [address] RETICS RETICULOCY 39.6 28.2 - 01/23 H Specimen Type : BLOOD CARYL TE 36.6 /2021 Comment: Automa adama Differential Performed (CBOC) PRODUCTION Ordering Pro vider: AURA WALKER INDEX Report Released Date/Time: Nov 26, 2021 07:53 AM Reporting Lab: [facility] [address] [place] [facility] [address] Performing Lab: [facility] [address] [place] [facility] [address] CBC LEUKOCYTES 2.88 4.0 - 11.0 11/22 L Specimen T ype: BLOOD CARYL [#/VOLUME] /2021 No comment en tered. (CBOC) IN BLOOD Ordering Provi payton: AURA WALKER BY Report Released Date/Time: Nov 22, 2021 09:52 AM AUTOMATED Reporting Lab : [facility] [address] [place] [facility] [address] Performing Lab: [facility] [address] [place] [facility] [address] CBC ERYTHROCYT 3.65 4.6 - 6.2 11/22 L Specimen Ty pe: BLOOD CARYL ES /2021 No comment enter ed. (CBOC) [#/VOLUME] Ordering Pro vider: AURA WALKER IN BLOOD Report Release d Date/Time: Nov 22, 2021 09:52 AM BY Reporting Lab: [facility] [address] [facility] [address] COUNT Performing Lab: [facility] [place] [address] CBC HEMOGLOBIN 12.0 13.5 - 11/22 L Specimen Type : BLOOD CARYL [MASS/VOLU 17.9 /2021 No comment en tered. (CBOC) ME] IN Ordering Provid er: AURA WALKER BLOOD Report Released Date/Time: Nov 22, 2021 09:52 AM Reporting Lab: [facility] [address] [place] [facility] [address] Performing Lab: [facility] [address] [place] [address] CBC HEMATOCRIT 36.1 41 - 54 11/22 L Specimen Type : BLOOD CARYL [VOLUME /2021 No comment enter ed. (CBOC) FRACTION] Ordering Prov ider: AURA WALKER OF BLOOD Report Release d Date/Time: Nov 22, 2021 09:52 AM BY Reporting Lab: [facility] [address] COUNT Performing Lab: [facility] ONE [place] [address] CBC MCV 98.9 80 - 100 11/22 Specimen Type: BLOOD CARYL [ENTITIC /2021 No comment ente red. (CBOC) VOLUME] BY Ordering Pro vider: AURA WALKER AUTOMATED Report Releas ed Date/Time: Nov 22, 2021 09:52 AM COUNT Reporting Lab: [facility] [address] [place] [facility] [address] Performing Lab: [facility] [address] [place] [facility] [address] CBC MCH 32.9 27 - 33 11/22 Specimen Type: B LOOD CARYL [ENTITIC /2021 No comment ente red. (CBOC) MASS] BY Ordering Provi payton: AURA WALKER AUTOMATED Report Releas ed Date/Time: Nov 22, 2021 09:52 AM COUNT Reporting Lab: [facility] [address] [place] [facility] [address] Performing Lab: [facility] [address] [place] [facility] [address] CBC MCHC 33.2 32.0 - 11/22 Specimen Type: B LOOD CARYL [MASS/VOLU 37.5 /2021 No comment en tered. (CBOC) ME] BY Ordering Provid er: AURA WALKER AUTOMATED Report Releas ed Date/Time: Nov 22, 2021 09:52 AM COUNT Reporting Lab: [facility] [address] [place] [address] Performing Lab: [facility] [address] [place] [address] CBC PLATELETS 152 150 - 400 11/22 Specimen Typ e: BLOOD CARYL [#/VOLUME] /2021 No comment en tered. (CBOC) IN BLOOD Ordering Provi payton: AURA WALKER BY Report Released Date/Time: Nov 22, 2021 09:52 AM AUTOMATED Reporting Lab : [facility] COUNT [place] [address] Performing Lab: [facility] [address] [place] [address] CBC PLATELET 10.5 7.4 - 10.4 11/22 H Specimen Typ e: BLOOD CARYL MEAN /2021 No comment enter ed. (CBOC) VOLUME Ordering Provid er: AURA WALKER [ENTITIC Report Release d Date/Time: Nov 22, 2021 09:52 AM VOLUME] IN Reporting La b: [facility] BLOOD BY [address] [place] [address] AUTOMATED Performing La b: [facility] COUNT [address] [place] [address] CBC ERYTHROCYT 12.8 11.5 - 11/22 Specimen Type : BLOOD CARYL E 14.5 /2021 No comment enter ed. (CBOC) DISTRIBUTI Ordering Pro vider: AURA WALKER ON WIDTH Report Release d Date/Time: Nov 22, 2021 09:52 AM [RATIO] BY Reporting La b: [facility] [place] [address] COUNT Performing Lab: [facility] [address] [place] [address] COMPREHEN CREATININE 1.4 0.7 - 1.2 11/22 H Specimen Type: PLASMA CARYL SIVE [MASS/VOLU /2021 No comment en tered. (CBOC) METABOLIC ME] IN Ordering Prov ider: AURA WALKER PANEL+MG SERUM OR Report Releas ed Date/Time: Nov 22, 2021 09:52 AM PLASMA Reporting Lab: [facility] [address] [place] [facility] [address] Performing Lab: [facility] [address] [place] [address] COMPREHEN UREA 28 8 - 26 11/22 H Specimen Type: PLASMA CARYL CASTRO NITROGEN /2021 No comment ente red. (CBOC) METABOLIC [MASS/VOLU Ordering P rovider: AURA WALKER PANEL+MG ME] IN Report Release d Date/Time: Nov 22, 2021 09:52 AM SERUM OR Reporting Lab: [facility] PLASMA [address] [place] [facility] [address] Performing Lab: [facility] [address] [facility] [address] COMPREHEN GLUCOSE 85 74 - 100 11/22 Specimen Type : PLASMA CARYL CASTRO [MASS/VOLU /2021 No comment en tered. (CBOC) METABOLIC ME] IN Ordering Prov ider: AURA WALKER PANEL+MG SERUM OR Report Releas ed Date/Time: Nov 22, 2021 09:52 AM PLASMA Reporting Lab: [facility] [address] [place] [facility] [address] Performing Lab: [facility] [address] [facility] [address] COMPREHEN SODIUM 139 136 - 145 11/22 Specimen Typ e: PLASMA CARYL CASTRO [MOLES/VOL No comment en tered. (CBOC) METABOLIC UME] IN Ordering Prov ider: AURA WALKER PANEL+MG SERUM OR Report Releas ed Date/Time: Nov 22, 2021 09:52 AM PLASMA Reporting Lab: [facility] [address] [place] [facility] [address] Performing Lab: [facility] [address] [place] [facility] [address] COMPREHEN POTASSIUM 4.6 3.5 - 5.1 11/22 Specimen T ype: PLASMA CARYL CASTRO [MOLES/VOL /2021 No comment en tered. (CBOC) METABOLIC UME] IN Ordering Prov ider: AURA WALKER PANEL+MG SERUM OR Report Releas ed Date/Time: Nov 22, 2021 09:52 AM PLASMA Reporting Lab: [facility] [address] [place] [facility] [address] Performing Lab: [facility] [place] [address] COMPREHEN CHLORIDE 104 98 - 107 11/22 Specimen Typ e: PLASMA CARYL OQUENDOE [MOLES/VOL /2021 No comment en tered. (CBOC) METABOLIC UME] IN Ordering Prov ider: AURA WALKER PANEL+MG SERUM OR Report Releas ed Date/Time: Nov 22, 2021 09:52 AM PLASMA Reporting Lab: [facility] [address] [place] [address] Performing Lab: [facility] [address] [place] [facility] [address] COMPREHEN CARBON 27 - 29 11/22 Specimen Type: PLASMA CARYL O[place]END[place] DIOXIDE No comment ente red. (CBOC) METABOLIC TOTAL Ordering Prov ider: AURA WALKER PANEL+MG [MOLES/VOL Report Rele ased Date/Time: Nov 22, 2021 09:52 AM UME] IN Reporting Lab: [facility] SERUM OR [address] [place] [facility] [address] PLASMA Performing Lab: [facility] [address] [place] [facility] [address] COMPREHEN CALCIUM 9.8 8.4 - 10.2 11/22 Specimen Ty pe: PLASMA CARYL SIVE [MASS/VOLU /2021 No comment en tered. (CBOC) METABOLIC ME] IN Ordering Prov ider: AURA WALKER PANEL+MG SERUM OR Report Releas ed Date/Time: Nov 22, 2021 09:52 AM PLASMA Reporting Lab: [facility] [address] [place] [address] Performing Lab: [facility] [address] [place] [facility] [address] COMPREHEN PROTEIN 6.9 6.0 - 8.3 11/22 Specimen Typ e: PLASMA CARYL OQUENDOE [MASS/VOLU /2021 No comment en tered. (CBOC) METABOLIC ME] IN Ordering Prov ider: AURA WALKER PANEL+MG SERUM OR Report Releas ed Date/Time: Nov 22, 2021 09:52 AM PLASMA Reporting Lab: [facility] [address] [place] [address] Performing Lab: [facility] [address] [place] [facility] [address] COMPREHEN ALBUMIN 4.3 3.5 - 5.2 11/22 Specimen Typ e: PLASMA CARYL SIVE [MASS/VOLU /2021 No comment en tered. (CBOC) METABOLIC ME] IN Ordering Prov ider: AURA WALKER PANEL+MG SERUM OR Report Releas ed Date/Time: Nov 22, 2021 09:52 AM PLASMA Reporting Lab: [facility] [address] [place] [address] Performing Lab: [facility] [address] [place] [address] COMPREHEN BILIRUBIN. 0.4 0.2 - 1.2 11/22 Specimen Type: PLASMA CARYL CASTRO TOTAL /2021 No comment enter ed. (CBOC) METABOLIC [MASS/VOLU Ordering P rovider: AURA WALKER PANEL+MG ME] IN Report Release d Date/Time: Nov 22, 2021 09:52 AM SERUM OR Reporting Lab: [facility] PLASMA [address] [place] [address] Performing Lab: [facility] [place] [address] COMPREHEN MAGNESIUM 2.1 1.6 - 2.6 11/22 Specimen T ype: PLASMA CARYL CASTRO [MASS/VOLU /2021 No comment en tered. (CBOC) METABOLIC ME] IN Ordering Prov ider: AURA WALKER PANEL+MG SERUM OR Report Releas ed Date/Time: Nov 22, 2021 09:52 AM PLASMA Reporting Lab: [facility] [address] [place] [address] Performing Lab: [facility] [address] [place] [address] COMPREHEN ANION GAP 8 5 - 15 11/22 Specimen Typ e: PLASMA CARYL CASTRO IN SERUM /2021 No comment ente red. (CBOC) METABOLIC OR PLASMA Ordering Pr ovider: AURA WALKER PANEL+MG Report Release d Date/Time: Nov 22, 2021 09:52 AM Reporting Lab: [facility] [address] [place] [facility] [address] Performing Lab: [facility] [address] [place] [facility] [address] COMPREHEN ALKALINE 43 40 - 150 11/22 Specimen Typ e: PLASMA CARYL CASTRO PHOSPHATAS /2021 No comment en tered. (CBOC) METABOLIC E Ordering Prov ider: AURA WALKER PANEL+MG [ENZYMATIC Report Rele ased Date/Time: Nov 22, 2021 09:52 AM ACTIVITY/V Reporting La b: [facility]] IN [address] [facility] [address] SERUM OR Performing Lab : [facility] PLASMA [place] [address] COMPREHEN ALANINE 17 <55 - 55 11/22 Specimen Type : PLASMA CARYL CASTRO AMINOTRANS /2021 No comment en tered. (CBOC) METABOLIC FERASE Ordering Prov ider: AURA WALKER PANEL+MG [ENZYMATIC Report Rele ased Date/Time: Nov 22, 2021 09:52 AM ACTIVITY/V Reporting La b: [facility]] IN [address] [facility] [address] SERUM OR Performing Lab : [facility] PLASMA [address] [place] [address] COMPREHEN ASPARTATE 22 <34 - 34 11/22 Specimen Ty pe: PLASMA CARYL CASTRO AMINOTRANS /2021 No comment en tered. (CBOC) METABOLIC FERASE Ordering Prov ider: AURA WALKER PANEL+MG [ENZYMATIC Report Rel eased Date/Time: Nov 22, 2021 09:52 AM ACTIVITY/V Reporting La b: [facility]] IN [address] [facility] [address] SERUM OR Performing Lab : [facility] PLASMA [address] [place] [address] COMPREHEN CREAT 53 60 11/22 L Specimen Type: PLASMA CARYL CASTRO EGFR(CKD-E No comment en tered. (CBOC) METABOLIC PI) Ordering Prov ider: AURA WALKER PANEL+MG Report Release d Date/Time: Nov 22, 2021 09:52 AM Reporting Lab: [facility] [address] [place] [address] Performing Lab: [facility] [place] [address] HEMOGLOBI HEMOGLOBIN 5.3 4.0 - 6.0 11/22 Specimen Type: BLOOD [place] A1C A1C/HEMOGL /2021 No comment en tered. (CBOC) OBIN.TOTAL Ordering Pro vider: AURA WALKER IN BLOOD Report Release d Date/Time: Nov 22, 2021 09:52 AM Reporting Lab: [facility] [address] [place] [address] Performing Lab: [facility] [address] [place] [address] TSH THYROTROPI 3.65 0.35 - 11/22 Specimen Type : PLASMA CARYL W/REFLEX N 4.94 No comment ente red. (CBOC) TO FREE [UNITS/VOL Ordering Pro vider: AURA WALKER] IN Report Released Date/Time: Nov 22, 2021 09:52 AM SERUM OR Reporting Lab: [facility] PLASMA [address] [place] [facility] [address] Performing Lab: [facility] [address] [place] [facility] [address] Vital Signs Combined list of inpatient and outpatient Vital Signs from Department of Defense and Veterans Affairs, ranging from 12 months to all on record, depending upon the facility. Vital Sign Value Date Comments Source SYSTOLIC BLOOD PRESSURE 161 11/22/2021 09:26:33 [facility] (CBOC) DIASTOLIC BLOOD PRESSURE 84 11/22/2021 09:26:33 [facility] (CBOC) PULSE OXIMETRY 99% 11/22/2021 09:26:[address] (CBOC) WEIGHT 176 11/22/2021 09:26:33 [place] [facility] (CBOC) BMI 25kg/m2 11/22/2021 09:26:33 [place] (CBOC) PAIN 0 11/22/2021 09:26:33 [place] (CBOC) TEMPERATURE 97.3 11/22/2021 09:26:33 [place] [facility] (CBOC) PULSE 61 11/22/2021 09:26:33 [place] [facility] (CBOC) RESPIRATION 16 11/22/2021 09:26:33 [place] [facility] (CBOC) SYSTOLIC BLOOD PRESSURE 147 06/05/2021 10:05:39 [facility] (CBOC) DIASTOLIC BLOOD PRESSURE 82 06/05/2021 10:05:39 [facility] (CBOC) PULSE OXIMETRY 100% 06/05/2021 10:05:[address] (CBOC) WEIGHT 178.4 06/05/2021 10:05:39 [place] [facility] (CB[facility]) BMI 25kg/m2 06/05/2021 10:05:39 [place] [facility] (CBOC) PAIN 1 06/05/2021 10:05:39 [place] [facility] (CBOC) HEIGHT 70.866 06/05/2021 10:05:39 [place] [facility] (CBOC) TEMPERATURE 98.4 06/05/2021 10:05:39 [place] (CBOC) PULSE 63 06/05/2021 10:05:39 [place] [facility] (CBOC) RESPIRATION 16 06/05/2021 10:05:39 [place] [facility] (CBOC) Encounters Combined list of: 1) Encounters from Department of Veterans Affairs facilities going back up to the last 18 months, not all VA inpatient encounters are included; 2) Encounters from the Department of [facility] facilities going back up to 280 months. Location Location Encounter Encounter Reason Attending ADM DC Stat us Disposition Source Details Type Number For Provider Date Date Visit Outpatient [id number] MARIE HOWELL 09/21 [place] Encounter [id number] I [facility] Outpatient 02540-2.61 04 [place] Encounter [id number] /2020 [facility] Outpatient 34880-5.61 11/14 [place] En[place] [id number] /2020 [facility] Outpatient 67869-4.61 04 [place] Encounter [id number] /2020 [facility] Outpatient 48822-1.61 05/05 [place] Encounter [id number] /2020 [facility] Outpatient 67626-0.61 06/04 [place] En[place] [id number] /2020 [facility] Outpatient 12473-6.61 0615 [place] Encounter [id number] /2020 [facility] Outpatient 34959-6.61 05/22 [place] En[place] [id number] /2020 [facility] Outpatient 85635-7.20 05/23 [facility] [id number] /2020 [facility] Outpatient 45433-9.61 05/29 [place] Encounter [id number] /2020 [facility] Outpatient 83784-9.61 Diagnos KYLE WALKER 06/05 [place] Encounter [id number] is: [place] [facility] 74 ICD-10- (CBOC) CM Z00.00 Encntr for general adult medical exam w/o abnorma l finding s
w ith Provide r Comment s: Encntr for general adult medical exam w/o abnorma l finding s Outpatient [id number] 06/07 [place] Encounter [id number] /2020 [facility] Outpatient 54572-1.61 06/19 [place] En[place] [id number] /2020 [facility] HC PRO 78020-9.61 Diagnos KIM LEDBETTER 11/19 [place] PHONE CALL [id number] is: NDA [facility] 5-10 MIN ICD-10- HCS CM Z71.89 Other specifi ed staff counselor ing<br/ >with Provide r Comment s: Other specifi ed staff counselor ing Outpatient [id number] 11/19 [place] Encounter [id number] [facility] OFFICE O/P 64746-1.61 Diagnos AARONCHRI 11/22 [place] EST LOW [id number] is: [place] [facility] 20-29 MIN 19 ICD-10- (CBOC) CM R21 Rash and other nonspec ific skin eruptio n
w ith Provide r Comment s: Rash and other Nonspec ific Skin Eruptio n IMMUNIZATI 03310-2.61 Diagnos LUISA ROMAN 01/23 [place] ADMIN [id number] is: AGGIE ER 55 ICD-10- (CBOC) CM Z23 Encount er for immuniz ation<b r/>with Provide r Comment s: Encount er for any immuniz ation Outpatient 42328-3.61 01/23 [place] Encounter [id number] /2021 [facility] Outpatient 07268-6.61 [facility],TALITA 01/27 [place] Encounter [id number] [facility] Outpatient 62272-3.61 Diagnos RIKKI, 02/07 [place] Encounter [id number] is: BRIGITTE S /2021 [facility] ICD-10- HCS CM D64.9 Anemia, unspeci fied
with Provide r Comment s: Anemia, unspeci fied HC PRO 88315-2.61 Diagnos IKER MAYO 02/25 [place] PHONE CALL [id number] is: E [facility] 11-20 MIN ICD-10- [facility] CM Z71.89 Other specifi ed staff counselor ing<br/ >with Provide r Comment s: Other specifi ed staff counselor ing Outpatient 93475-3.61 02/28 [place] Encounter [id number] [facility] Social History Combined list of available smoking, tobacco, and other social [facility] Social History Type Response Date Comment Source Tobacco smoking status VA-TO[facility]ACCO FORMER USER 06/05/2021 [place] ([facility] History of tobacco use VA-TOBACCO QUIT 15 YRS 06/05/2021 [place] ([facility]) OR MORE History of tobacco use VA-TOBACCO FORMER USER 05/23/2020 [place] ([facility]) History of tobacco use VA-TOBACCO QUIT 15 YRS 05/20/2019 [place] ([facility]) OR MORE History of tobacco use VA-TOBACCO FORMER USER 04/28/2018 [place] ([facility]) History of tobacco use FORMER TOBACCO USER 7Y 07/16/2017 [place] ([facility]) OR GREATER History of tobacco use FORMER TOBACCO USER 7Y 06/19/2016 [place] ([facility]) OR GREATER History of tobacco use FORMER TOBACCO USER 7Y 07/11/2015 [place] ([facility]) OR GREATER History of tobacco use FORMER TOBACCO USER 7Y 07/12/2014 [place] ([facility]) OR GREATER History of tobacco use FORMER TOBACCO USER 7Y 08/20/2010 [place] ([facility]) OR GREATER Plan of Care List of future care activities from Department of Veterans Affairs facilities. Additional future care activities may be listed in the Assessment and Plan section. Date/Time Care Activity Care Activity Detail Facility 02/24/2022 Laboratory - Chemistry Order [facility] PLASMA SP ON CE [facility]
--- OUTSIDE RECORDS SUMMARY | 2022-03-12 04:11 | XMS_ITS | Encounter Summary ---
:1950 Author Organization [facility] Address [address] [place] [address] Support Name Relationship Address Phone ANDREIA THRASHER Unavailable [id number] [place] [address] ANDREIA THRASHER Unavailable [id number] [place] [address] Insurance Providers: All historical and current Section Date Range: From patient's date of to the date document was created.This section includes the names of all active insurance providers for the patient. Insurance Type of Plan Start of End of Group Member Insurance Policy P nikhil's Provider Coverage Name Policy Policy Number ID Provider's Galvan's Relationship Coverage Coverage Telephone Name to Policy Number Galvan HUMANA MCR MEDICARE MCR Aug 03, [id number] [phone] SUKHWINDER MoniqueLUCAS DC (WNR) ADVANTAGE (WNR) 2017 1 [id number] [phone] EN MEDICARE MEDICARE PART May 03, PART A [id number] 800 ANNA MARIELUCAS Rhys SERNA (WNR) (M) A 2012 [id number] EN MEDICARE MEDICARE PART May 03, PART B [id number] LUCAS THRASHER (WNR) (M) B 2012 [id number] EN Selected Encounter This section includes the information on record at [place] for the Encounter. Date/Time Encounter Type Encounter Description Reason Provider Source Jun 19, 2021 07:37 Outpatient Encounter PRIMARY CARE/MEDICINE AM IHE Encounter Template Text not used by MI Plan of Treatment: Future Appointments (+ 6 months) and Future Tests (+/- 45 days) The Plan of Treatment section includes future care activities for the patient from all [facility] treatment[facility]. This section includes future appointments and future orders which are active, pending orscheduled.Future Appointments This section includes appointments that were scheduled to occur 6 months from the date of the Encounter, up to a maximum of 20 appointments. The data comes from all [place] treatment facilities. Appointment Date/Time Appointment Type Appointment Facili ty Name Jul 05, 2021 02:30 PM AMBULATORY - NONE [facility] Nov 22, 2021 09:30 AM AMBULATORY - MEDICINE [facility]) Lab Results: +/- 30 days of the encounter This section includes the Chemistry and Hematology Lab Results on record with MI for the patient. Radiology Reports and Pathology Reports are provided separately, in subsequent sections.Lab Results This section contains the Chemistry/Hematology Results that were resulted 30 days before or 30 daysafter the date of the Encounter. Date/Time Source Result Type Result - Unit Interpretation Reference Range Comment Jun 05, 2021 10:48 [facility] ([facility]) TSH W/REFLEX TO FREE Specim en Type: PLASMA AM T4 No comment enter ed. Ordering Provid er: AURA WALKER Report Released Date/Time: Jun 05, 2021 10:37 AM Reporting [facility] [address] Performing Lab: [facility] [address] TSH 3.83 0.35-4.94 Jun 05, 2021 [facility]) COMPREHENSIVE METABOLIC Specim en Type: PLASMA 10:48 AM PANEL+MG No comment enter ed. Ordering Provid er: AURA WALKER Report Released Date/Time: Jun 05, 2021 10:37 AM Reporting Lab: [facility] [address] Performing Lab: [facility] [address] CREATININE 1.4 H 0.7-1.2 UREA NITROGEN 25 8-26 GLUCOSE 102 H 74-100 SODIUM 139 136-145 POTASSIUM 4.7 3.5-5.1 CHLORIDE 102 98-107 CO2 26 22-29 CALCIUM 9.5 8.4-10.2 PROTEIN,TOTAL 6.7 6.0-8.3 ALBUMIN 3.8 3.5-5.2 BILIRUBIN, TOTAL 0.5 0.2-1.2 MAGNESIUM 1.8 1.6-2.6 ANION GAP 11 5-15 ALKALINE PHOSPHATASE 49 40-150 ALT/SGPT 12 <55 AST/SGOT 19 <34 ESTIMATED GFR(eGFR) 50 L >60 Jun 05, 2021 10:48 AM [facility]) CBC Specimen Type: BLOOD Comment: Clumpe d Platelets. Invitro artefact. No clinical significance. Platelet count may be higher than stated value. Plt count = 136 K-cmm Ordering Provid er: AURA WALKER Report Released Date/Time: Jun 05, 2021 10:37 AM Reporting Lab: [facility] [address] Performing Lab: [facility] [address] WBC 3.43 L 4.0-11.0 RBC 3.53 L 4.6-6.2 HGB 12.1 L 13.5-17.9 HCT 36.1 L 41-54 MCV 102.3 H 80-100 MCH 34.3 H 27-33 MCHC 33.5 32.0-37.5 PLT comment MPV canc RDW 12.7 11.5-14.5 IPF canc Jun 05, 2021 10:48 AM [facility] ([facility]) HEMOGLOBIN A1C Specimen Type: BLOOD No comment enter ed. Ordering Provid er: AURA WALKER Report Released Date/Time: Jun 05, 2021 10:37 AM Reporting Lab: [facility] [address] Performing Lab: [facility] [address] HEMOGLOBIN A1C 5.1 4.0-6.0 Jun 05, 2021 10:48 AM [facility] ([facility]) PSA Specimen Type: SERUM No comment enter ed. Ordering Provid er: AURA WALKER Report Released Date/Time: Jun 05, 2021 10:39 AM Reporting Lab: [facility] [address] Performing Lab: [facility] [address] PSA 0.43 <4.00 Jun 05, 2021 [facility] ([facility]) LIPID PANEL,NON-FASTING Specim en Type: PLASMA 10:48 AM No comment enter ed. Ordering Provid er: AURA WALKER Report Released Date/Time: Jun 05, 2021 10:37 AM Reporting Lab: [facility] [address] Performing Lab: [facility] [address] CHOLESTEROL 239 H <199 .HDL 133 >40 LDL CALCULATION 91 <99 VLDL CALCULATION 15 <29 NON HDL CHOLESTEROL 106 <129 TRIG(NON FASTING) 76 <149 Radiology Reports: +/- 30 days of the encounter Radiology Reports For cases when an order for radiology services may have been completed prior to the date of the Encounter, the report list includes the Radiology Reports that were completed up to 30 days before date of the Encounter. For cases when an order for radiology services may have been completed after the date of the Encounter, the report list also includes the Radiology Reports that were completed up to 30days after date of the Encounter. The data comes from all [place] treatment facilities. Date/Time Radiology Report Provider Source Jul 05, 2021 02:19 PM MRI-BRAIN (P): JONATHAN STANLEY [facility] AAKASH THRASHER [id number] -1950 M Ex Date: JUL 05, 2021@14:19 Req Phys: AURA WALKER Loc: [facility] PACT [place] LD PA [facility] (Req'g Loc Img Loc: MRI IMAGING Service: Unknown (Case [id number] COMPLETE) MRI BRAIN/BRAINSTEM W/O CONTRAST (MRI Detailed) CPT:97183 Reason for Study: headaches, memory changes Clinical History: IS NOT under investigation for COVID-19 or is COVID-19 negative memory changes, headaches, recent treatment for tongue cancer Responsible provider name and phone number to n otify for critical findings if other than user placing the order a nd pager listed below: User placing orders pager: LAST CREATININE____ Report Status: Verified Date Reported: JUL 05, 2021 Date Verified: JUL 05, 2021 Management Recruiter E-Sig:/ES/JONATHAN STANLEY MD Report: MRI of the brain Comparison:None. HISTORY: Headaches and memory changes Technique: Routine multiplanar multisequence im aging. Findings: No evidence of acute ischemia on diff usion-weighted imaging. Patchy and confluent areas of abnormal white ma tter and cerebral hemispheres consistent with chronic small vesse l ischemia. 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 No evidence of intracranial hemorrhage. No evidence of intracr anial mass. Major intracranial vessels, internal auditory c anals, imaged face, sella, and craniocervical junction are wi thin normal limits. Paranasal sinuses are clear. Slight christina unt mucosal thickening imaged paranasal sinuses consistent with chronic sinusitis. Impression: 1. No evidence of acute abnormality. 2. Moderate amount of chronic small vessel isch emia. 3. 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 Primary Interpreting Staff: JONATHAN STANLEY MD, RADIOLOGIST (Management Recruiter) /[place] Encounter Notes: All associated encounter notes This section contains the clinical notes associated to the Encounter. Date/Time Encounter Note(s) Provider Source Jun 19, 2021 07:37 AM [facility] LOCAL TITLE: PATIENT CONTACT NOTE STANDARD TITLE: REPORT OF CONTACT DATE OF NOTE: JUN 19, 2021@07:37 ENTRY DATE: JUN 19, 2021@07:37:11 AUTHOR: SAVANNAH WERNER EXP COSIGNER: URGENCY: STATUS: COMPLETED Patient contact Name of Easley: ANNA MARIEAAKASH LAN Name/Relationship of Contact if other than Veter an: Date & Time of Contact: Jun@07:37 Type of Contact: Telephone Reason for Contact: Attempt to reach to discuss results and how he would like to proceed. No answer generic message left for to ca ll back. /coleman/ Savannah Werner [facility] NET TRAINER Signed: 06/19/2021 07:37
--- OUTSIDE RECORDS SUMMARY | 2022-03-12 04:12 | XMS_ITS | Encounter Summary ---
:1950 Author Organization [facility] [address] Address [address] [place] [id number] Support Name Relationship Address Phone ANDREIA THRASHER Unavailable [id number] [place] [address] ANDREIA THRASHER Unavailable [id number] [place] [address] Insurance Providers: All historical and current Section [...] Galvan HUMANA MCR MEDICARE MCR Aug 03, [id number] [phone] SUKHWINDER MoniqueLUCAS DC (WNR) ADVANTAGE (WNR) 2017 1 [id number] [id number] EN MEDICARE MEDICARE PART May 03, PART B [id number] 800 ANNA MARIELUCAS Rhys SERNA (WNR) (M) B 2012 [id number] EN MEDICARE MEDICARE PART May 03, PART A [id number] 800 ANNA MARIELUCAS SERNA (WNR) (M) A 2012 [id number] [phone] EN Selected Encounter This section includes the information on record at [place] for the Encounter. Date/Time Encounter Type Encounter Description Reason Provider Source Nov 19, 2021 02:42 Outpatient Encounter PRIMARY CARE/MEDICINE PM IHE Encounter Template Text not used by [place] Plan of Treatment: Future Appointments (+ 6 [...] 20 appointments. The data comes from all [place] treatment facilities. Appointment Date/Time Appointment Type Appointment Facili ty Name Nov 22, 2021 09:30 AM AMBULATORY - MEDICINE [place] ([facility]) Jan 23, 2022 11:00 AM AMBULATORY - NONE [place] ([facility]) Jan 23, 2022 11:30 AM AMBULATORY - MEDICINE [place] ([facility]) Lab Results: +/- 30 days of the encounter This section includes the Chemistry and Hematology Lab Results on record with [place] for the patient. Radiology Reports and Pathology Reports are provided separately, in subsequent sections.Lab Results This section contains the Chemistry/Hematology Results that were resulted 30 days before or 30 daysafter the date of the Encounter. Date/Time Source Result Type Result - Unit Interpretation Reference Range Comment Nov 22, 2021 09:59 [place] ([facility]) TSH W/REFLEX TO FREE Specim en Type: PLASMA AM T4 No comment enter ed. Ordering Provid er: AURA WALKER Report Released Date/Time: Nov 22, 2021 09:52 AM Reporting Lab: [facility] [address] [facility] [address] Performing Lab: [facility] [address] TSH 3.65 0.35-4.94 Nov 22, 2021 [place] ([facility]) COMPREHENSIVE METABOLIC Specim en Type: PLASMA 09:59 AM PANEL+MG No comment enter ed. Ordering Provid er: AURA WALKER Report Released Date/Time: Nov 22, 2021 09:52 AM Reporting Lab: [facility] [address] Performing Lab: [facility] [address] CREATININE 1.4 H 0.7-1.2 UREA NITROGEN 28 H 8-26 GLUCOSE 85 74-100 SODIUM 139 136-145 POTASSIUM 4.6 3.5-5.1 CHLORIDE 104 98-107 CO2 27 22-29 CALCIUM 9.8 8.4-10.2 PROTEIN,TOTAL 6.9 6.0-8.3 ALBUMIN 4.3 3.5-5.2 BILIRUBIN, TOTAL 0.4 0.2-1.2 MAGNESIUM 2.1 1.6-2.6 ANION GAP 8 5-15 ALKALINE PHOSPHATASE 43 40-150 ALT/SGPT 17 <55 AST/SGOT 22 <34 CREAT EGFR(CKD-EPI) 53 L >60 Nov 22, 2021 09:59 AM [place] ([facility]) CBC Specimen Type: BLOOD No comment enter ed. Ordering Provid er: AURA WALKER Report Released Date/Time: Nov 22, 2021 09:52 AM Reporting Lab: [facility] [address] [facility] [address] [facility] [address] WBC 2.88 L 4.0-11.0 RBC 3.65 L 4.6-6.2 HGB 12.0 L 13.5-17.9 HCT 36.1 L 41-54 MCV 98.9 80-100 MCH 32.9 27-33 MCHC 33.2 32.0-37.5 PLT 152 150-400 MPV 10.5 H 7.4-10.4 RDW 12.8 11.5-14.5 Nov 22, 2021 09:59 AM [place] ([facility]) HEMOGLOBIN A1C Specimen Type: BLOOD No comment enter ed. Ordering Provid er: AURA WALKER Report Released Date/Time: Nov 22, 2021 09:52 AM Reporting Lab: [facility] [address] [facility] [address] Performing Lab: [facility] [address] [facility] [address] HEMOGLOBIN A1C 5.3 4.0-6.0 Nov 22, 2021 [place] ([facility]) LIPID PANEL,NON-FASTING Specim en Type: PLASMA 09:59 AM No comment enter ed. Ordering Provid er: AURA WALKER Report Released Date/Time: Nov 22, 2021 09:52 AM Reporting Lab: [facility] [address] [facility] [address] Performing Lab: [facility] [address] [facility] [address] CHOLESTEROL 243 H <199 .HDL 104 >40 LDL CALCULATION 124 H <99 VLDL CALCULATION 15 <29 NON HDL CHOLESTEROL 139 H <129 TRIG(NON FASTING) 76 <149 Encounter Notes: All associated encounter notes This section contains the clinical notes associated to the Encounter. Date/Time Encounter Note(s) Provider Source Nov 19, 2021 02:42 PM NURSING IMMUNIZATION NOTE: SAVANNAH WERNER ([facility]) LOCAL TITLE: VAAES NSG COVID-19 VACCINE ADMINIS TRATION STANDARD TITLE: NURSING IMMUNIZATION NOTE DATE OF NOTE: NOV 19, 2021@14:42 ENTRY DATE: NOV 19, 2021@14:42:27 AUTHOR: SAVANNAH WERNER COSIGNER: URGENCY: STATUS: COMPLETED Pfizer COVID-19 Vaccine given previously Patient received a prior dose of the Pfizer COVI D-19 Vaccine. Date: June 07, 2021 Series: Series [address]: [facility] /coleman/ [facility] Signed: 11/19/2021 14:43
--- OUTSIDE RECORDS SUMMARY | 2022-03-12 04:12 | XMS_ITS | Encounter Summary ---
:1950 Author Organization [facility] Address [address] [place] [address] Support Name Relationship Address Phone ANDREIA THRASHER Unavailable [id number] [place] [address] ANDREIA THRASHER Unavailable [id number] [place] [address] Insurance Providers: All historical and current Section Date Range: From patient's date of to the date document was created.This section includes the names of all active insurance providers for the patient. Insurance Type of Plan Start of End of Group Member Insurance Policy P elviaadán's Provider Coverage Name Policy Policy Number ID Provider's Galvan's Relationship Coverage Coverage Telephone Name to Policy Number Galvan HUMANA MCR MEDICARE MCR Aug 03, [id number] [phone] SUKHWINDER EneidaLUCAS DC (WNR) ADVANTAGE (WNR) 2017 1 [id number] [phone] EN MEDICARE MEDICARE PART May 03, PART A [id number] 800 ANNA MARIELUCAS Rhys SERNA (WNR) (M) A 2012 [id number] [phone] EN MEDICARE MEDICARE PART May 03, PART B [id number] 800 LUCAS THRASHER (WNR) (M) B 2012 [id number] EN Selected Encounter This section includes the information on record at [place] for the Encounter. Date/Time Encounter Type Encounter Description Reason Provider Source May 23, 2021 12:00 Outpatient Encounter EVENT (HISTORICAL) AM IHE Encounter Template Text not used by [facility] Plan of Treatment: Future Appointments (+ 6 [...] 20 appointments. The data comes from all [place] treatment facilities. Appointment Date/Time Appointment Type Appointment Facili ty Name Jun 05, 2021 10:00 AM AMBULATORY - MEDICINE [place] ([facility]) Jul 05, 2021 02:30 PM AMBULATORY - NONE [facility] Lab Results: +/- 30 days of the encounter This section includes the Chemistry and Hematology Lab Results on record with [place] for the patient. Radiology Reports and Pathology Reports are provided separately, in subsequent sections.Lab Results This section contains the Chemistry/Hematology Results that were resulted 30 days before or 30 daysafter the date of the Encounter. Date/Time Source Result Type Result - Unit Interpretation Reference Range Comment Jun 05, 2021 10:48 [facility]) TSH W/REFLEX TO FREE Specim en Type: PLASMA AM T4 No comment enter ed. Ordering Provid er: AURA WALKER Report Released Date/Time: Jun 05, 2021 10:37 AM Reporting Lab: [facility] [address] [facility] [address] Performing Lab: [facility] [address] TSH 3.83 0.35-4.94 Jun 05, 2021 [facility]) COMPREHENSIVE METABOLIC Specim en Type: PLASMA 10:48 AM PANEL+MG No comment enter ed. Ordering Provid er: AURA WALKER Report Released Date/Time: Jun 05, 2021 10:37 AM Reporting Lab: [facility] [address] [facility] [address] Performing Lab: [facility] [address] CREATININE 1.4 H 0.7-1.2 UREA NITROGEN 25 [...] L >60 Jun 05, 2021 10:48 AM [facility]) CBC Specimen Type: BLOOD Comment: Clumpe d Platelets. Invitro artefact. No clinical significance. Platelet count may be higher than stated value. Plt count = 136 K-cmm Ordering Provid er: AURA WALKER Report Released Date/Time: Jun 05, 2021 10:37 AM Reporting Lab: [facility] [address] Performing Lab: [facility] [address] WBC 3.43 L 4.0-11.0 RBC 3.53 L 4.6-6.2 HGB 12.1 L 13.5-17.9 HCT 36.1 L 41-54 MCV 102.3 H 80-100 MCH 34.3 H 27-33 MCHC 33.5 32.0-37.5 PLT comment MPV canc RDW 12.7 11.5-14.5 IPF canc Jun 05, 2021 10:48 AM [place] ([facility]) HEMOGLOBIN A1C Specimen Type: BLOOD No comment enter ed. Ordering Provid er: AURA WALKER Report Released Date/Time: Jun 05, 2021 10:37 AM Reporting Lab[facility] [address] Performing Lab: [facility] [address] HEMOGLOBIN A1C 5.1 4.0-6.0 Jun 05, 2021 10:48 AM [place] ([facility]) PSA Specimen Type: SERUM No comment enter ed. Ordering Provid er: AURA WALKER Report Released Date/Time: Jun 05, 2021 10:39 AM Reporting Lab: [facility] [address] Performing Lab: [facility] [address] PSA 0.43 <4.00 Jun 05, 2021 [place] ([facility]) LIPID PANEL,NON-FASTING Specim en Type: PLASMA 10:48 AM No comment enter ed. Ordering Provid er: AURA WALKER Report Released Date/Time: Jun 05, 2021 10:37 AM Reporting Lab[facility] [address] Performing Lab: [facility] [address] CHOLESTEROL 239 H <199 .HDL 133 >40 LDL CALCULATION 91 <99 VLDL CALCULATION 15 <29 NON HDL CHOLESTEROL 106 <129 TRIG(NON FASTING) 76 <149 Immunizations: All administered on the encounter date This section contains immunizations associated to the Encounter. Immunization Series Date Issued Reaction Comments INFLUENZA, UNSPECIFIED FORMULATION May 23, 2021
--- OUTSIDE RECORDS SUMMARY | 2022-03-12 04:12 | XMS_ITS | Encounter Summary ---
:1950 Author Organization [facility] Address [address] [place] [address] Support Name Relationship Address Phone ANDREIA THRASHER Unavailable [id number] [place] [address] ANDREIA THRASHER Unavailable [id number] [place] [address] Insurance Providers: All historical and current Section [...] Galvan HUMANA MCR MEDICARE MCR Aug 03, [id number] [phone] SUKHWINDER MoniqueLUCAS DC (WNR) ADVANTAGE (WNR) 2017 1 [id number] EN MEDICARE MEDICARE PART May 03, PART A [id number] 800 ANNA MARIELUCAS Rhys SERNA (WNR) (M) A 2012 [id number] [place] MEDICARE MEDICARE PART May 03, PART B [id number] 800 ANNA MARIELUCAS SERNA (WNR) (M) B 2012 [id number] EN Selected Encounter This section includes the information on record at [place] for the Encounter. Date/Time Encounter Type Encounter Description Reason Provider Source May 22, 2021 10:59 Outpatient Encounter PRIMARY CARE/MEDICINE AM E Encounter Template Text not used by [place] [...] 05, 2021 10:00 AM AMBULATORY - MEDICINE [place] ([facility]) Jul 05, 2021 02:30 PM AMBULATORY - NONE [facility] Lab Results: +/- 30 days of the [...] Reference Range Comment Jun 05, 2021 10:48 [facility]) TSH W/REFLEX TO FREE Specim en Type: PLASMA AM T4 No comment enter ed. Ordering Provid er: ARUA WALKER Report Released Date/Time: Jun 05, 2021 10:37 AM Reporting Lab: [facility] [address] Performing Lab: [facility] [id number] TSH 3.83 0.35-4.94 Jun 05, 2021 [facility]) COMPREHENSIVE METABOLIC Specim en Type: PLASMA 10:48 AM PANEL+MG No comment enter ed. Ordering Provid er: AURA WALKER Report Released Date/Time: Jun 05, 2021 10:37 AM Reporting Lab: [facility] [address] [address] Performing Lab: [facility] [address] CREATININE 1.4 H 0.7-1.2 UREA NITROGEN 25 [...] L >60 Jun 05, 2021 10:48 AM [facility]) HEMOGLOBIN A1C Specimen Type: BLOOD No comment enter ed. Ordering Provid er: AURA WALKER Report Released Date/Time: Jun 05, 2021 10:37 AM Reporting Lab: [facility] [address] [facility] [address] Performing Lab: [facility] [address] [facility] [address] HEMOGLOBIN A1C 5.1 4.0-6.0 Jun 05, 2021 10:48 AM [place] ([facility]) CBC Specimen Type: BLOOD Comment: Clumpe d Platelets. Invitro artefact. No clinical significance. Platelet count may be higher than stated value. Plt count = 136 K-cmm Ordering Provid er: AURA WALKER Report Released Date/Time: Jun 05, 2021 10:37 AM Reporting Lab: [facility] [address] Performing Lab: [facility] [address] WBC 3.43 L 4.0-11.0 RBC 3.53 L 4.6-6.2 HGB 12.1 L 13.5-17.9 HCT 36.1 L 41-54 MCV 102.3 H 80-100 MCH 34.3 H 27-33 MCHC 33.5 32.0-37.5 PLT comment MPV canc RDW 12.7 11.5-14.5 IPF canc Jun 05, 2021 10:48 AM [place] ([facility]) PSA Specimen Type: SERUM No comment enter ed. Ordering Provid er: AURA WALKER Report Released Date/Time: Jun 05, 2021 10:39 AM Reporting Lab: [facility] [address] Performing Lab: [facility] [address] PSA 0.43 <4.00 Jun 05, 2021 [place] ([facility]) LIPID PANEL,NON-FASTING Specim en Type: PLASMA 10:48 AM No comment enter ed. Ordering Provid er: AURA WALKER Report Released Date/Time: Jun 05, 2021 10:37 AM Reporting Lab: [facility] [address] [facility] [address] Performing Lab: [facility] [address] CHOLESTEROL 239 H <199 .HDL 133 >40 LDL CALCULATION 91 <99 VLDL CALCULATION 15 <29 NON HDL CHOLESTEROL 106 <129 TRIG(NON FASTING) 76 <149 Encounter Notes: All associated encounter notes This section contains the clinical notes associated to the Encounter. Date/Time Encounter Note(s) Provider Source May 22, 2021 10:59 AM REPORT OF CONTACT: JESÚS SEGURA ([facility]) LOCAL TITLE: APPOINTMENT SCHEDULING NOTE LARISS A STANDARD TITLE: REPORT OF CONTACT DATE OF NOTE: MAY 22, 2021@10:59 ENTRY DATE: MAY 22, 2021@10:59:11 AUTHOR: JESÚS SEGURA COSIGNER: URGENCY: STATUS: COMPLETED APPOINTMENT SCHEDULING NOTE [facility] No response to scheduling efforts Contact: Automated letter sent to Veterans addr ess on file on: May AAKASH THRASHER [address], [place] [address] Contact: Called at phone: O ky Left message on voice mail. Phone number left for to call back: If calls back, schedule appointment for: MEIR LU 05/22/2021 Annual /coleman/ JESÚS SMITH MSA Signed: 05/22/2021 11:00 05/23/2021 ADDENDUM STATUS: COMPLETED Contact: Called at: May Left message on voice mail. Phone number left for to call back: [phone] /coleman/ JESÚS SMITH MSA Signed: 05/23/2021 09:28
--- OUTSIDE RECORDS SUMMARY | 2022-03-12 04:12 | XMS_ITS | Encounter Summary ---
:1950 Author Organization [facility] Address [address] [place] [address] Support Name Relationship Address Phone ANDREIA THRASHER Unavailable [id number] [place] [address] ANDREIA THRASHER Unavailable [phone] [place] [address] Insurance Providers: All historical and current Section [...] Galvan HUMANA MCR MEDICARE MCR Aug 03, [id number] SUKHWINDER MoniqueLUCAS DC (WNR) ADVANTAGE (WNR) 2017 1 [id number] EN MEDICARE MEDICARE PART May 03, PART A [id number] 800 [address] MARIELUCAS Rhys SERNA (WNR) (M) A 2012 [id number] EN MEDICARE MEDICARE PART May 03, PART B [id number] 800 LUCAS THRASHER (WNR) (M) B 2012 [id number] EN Selected Encounter This section includes the information on record at [place] for the Encounter. Date/Time Encounter Type Encounter Description Reason Provider Source May 29, 2021 11:22 Outpatient Encounter PRIMARY CARE/MEDICINE AM E Encounter Template Text not used by [place] Plan of Treatment: Future Appointments (+ 6 [...] 20 appointments. The data comes from all [place] treatment facilities. Appointment Date/Time Appointment Type Appointment Facili ty Name Jun 05, 2021 10:00 AM AMBULATORY - MEDICINE [place] ([facility]) Jul 05, 2021 02:30 PM AMBULATORY - [facility] Nov 22, 2021 09:30 AM AMBULATORY - MEDICINE [facility]) Lab Results: +/- 30 days of the encounter This section includes the Chemistry and Hematology Lab Results on record with [place] for the patient. Radiology Reports and Pathology Reports are provided separately, in subsequent sections.Lab Results This section contains the Chemistry/Hematology Results that were resulted 30 days before or 30 daysafter the date of the Encounter. Date/Time Source Result Type Result - Unit Interpretation Reference Range Comment Jun 05, 2021 10:48 [place] ([facility]) TSH W/REFLEX TO FREE Specim en Type: PLASMA AM T4 No comment enter ed. Ordering Provid er: AURA WALKER Report Released Date/Time: Jun 05, 2021 10:37 AM Reporting Lab: [facility] [address] [facility] [address] Performing Lab: [facility] [address] TSH 3.83 0.35-4.94 Jun 05, 2021 [facility]) COMPREHENSIVE METABOLIC Specim en Type: PLASMA 10:48 AM PANEL+MG No comment enter ed. Ordering Provid er: AURA WALKER Report Released Date/Time: Jun 05, 2021 10:37 AM Reporting Lab: [facility] [address] Performing Lab: [facility] [address] CREATININE 1.4 H 0.7-1.2 UREA NITROGEN 25 [...] L >60 Jun 05, 2021 10:48 AM [place] ([facility]) CBC Specimen Type: BLOOD Comment: Clum[place] d Platelets. Invitro artefact. No clinical significance. Platelet count may be higher than stated value. Plt count = 136 K-cmm Ordering Provid er: AURA WALKER Report Released Date/Time: Jun 05, 2021 10:37 AM Reporting Lab: [facility] [address] [facility] [address] [facility] [address] Performing Lab: [facility] [address] [address] WBC 3.43 L 4.0-11.0 RBC 3.53 L 4.6-6.2 HGB 12.1 L 13.5-17.9 HCT 36.1 L 41-54 MCV 102.3 H 80-100 MCH 34.3 H 27-33 MCHC 33.5 32.0-37.5 PLT comment MPV canc RDW 12.7 11.5-14.5 IPF canc Jun 05, 2021 10:48 AM [place] ([facility]) HEMOGLOBIN A1C Specimen Type: BLOOD No comment enter ed. Ordering Provid er: AURA WALKER Report Released Date/Time: Jun 05, 2021 10:37 AM Reporting Lab: [facility] [address] [facility] [address] [facility] [address] HEMOGLOBIN A1C 5.1 4.0-6.0 Jun 05, 2021 10:48 AM [place] ([facility]) PSA Specimen Type: SERUM No comment enter ed. Ordering Provid er: AURA WALEKR Report Released Date/Time: Jun 05, 2021 10:39 AM Reporting Lab: [facility] [address] [facility] [address] Performing Lab[facility] [address] PSA 0.43 <4.00 Jun 05, 2021 [place] ([facility]) LIPID PANEL,NON-FASTING Specim en Type: PLASMA 10:48 AM No comment enter ed. Ordering Provid er: AURA WALKER Report Released Date/Time: Jun 05, 2021 10:37 AM Reporting [facility] [address] Performing Lab: [facility] [address] [address] CHOLESTEROL 239 H <199 .HDL 133 >40 LDL CALCULATION 91 <99 VLDL CALCULATION 15 <29 NON HDL CHOLESTEROL 106 <129 TRIG(NON FASTING) 76 <149 Encounter Notes: All associated encounter notes This section contains the clinical notes associated to the Encounter. Date/Time Encounter Note(s) Provider Source May 29, 2021 11:22 AM IMMUNIZATION NOTE: SAVANNAH WERNER ([facility]) LOCAL TITLE: INFLUENZA VACCINATION STANDARD TITLE: IMMUNIZATION NOTE DATE OF NOTE: MAY 29, 2021@11:22 ENTRY DATE: MAY 29, 2021@11:22:54 AUTHOR: SAVANNAH WERNER EXP COSIGNER: URGENCY: STATUS: COMPLETED The patient has received the seasonal influenza vaccine for the current season at another location. Date: May 23, 2021 Location: [facility] /es/ SAVANNAH WERNER [facility] Signed: 05/29/2021 11:23
--- OUTSIDE RECORDS SUMMARY | 2022-03-12 04:12 | XMS_ITS | Encounter Summary ---
:1950 Author Organization [facility] Address [address] [place] [id number] Support Name Relationship Address Phone ANDREIA THRASHER Unavailable [id number] [place] [address] ANDREIA THRSAHER Unavailable [id number] [place] [address] Insurance Providers: All historical and current Section [...] Galvan HUMANA MCR MEDICARE MCR Aug 03, [id number] [phone] LUCAS OKEEFE (WNR) ADVANTAGE (WNR) [phone] EN MEDICARE MEDICARE PART May 03, PART A [id number] LUCAS THRASHER (WNR) (M) A 2012 [id number] [phone] EN MEDICARE MEDICARE PART May 03, PART B [id number] LUCAS THRASHER (WNR) (M) B 2012 [id number] [phone] EN Selected Encounter This section includes the information on record at [place] for the Encounter. Date/Time Encounter Type Encounter Reason Provider Source Description Jun 05, 2021 Outpatient PRIMARY ICD-10-CM EL WALKER 10:00 AM Encounter CARE/MEDICINE Z00.00 Encntr A M for general adult medical exam w/o abnormal findings with Provider Comments: Encntr for general adult medical exam w/o abnormal findings IHE Encounter Template Text not used by [facility] Assessments - Encounter Diagnoses This section includes the primary and secondary diagnoses documented for the Encounter. Date/Time Primary/Secondary Diagnosis Name Provider Source Diagnosis Jun 05, 2021 PRIMARY Encntr for EL WALKER 10:59 AM general adult A ([facility]) medical exam w/o abnormal findings Plan of Treatment: Future Appointments (+ 6 months) and Future Tests (+/- 45 days) The Plan of Treatment section includes future care activities for the patient from all [place] treatmentfacilities. This section includes future appointments and future orders which are active, pending orscheduled.Future Appointments This section includes appointments that were scheduled to occur 6 months from the date of the Encounter, up to a maximum of 20 appointments. The data comes from all [place] treatment facilities. Appointment Date/Time Appointment Type Appointment Facili ty Name Jul 05, 2021 02:30 PM AMBULATORY - NONE [facility] Nov 22, 2021 09:30 AM AMBULATORY - MEDICINE [facility] ([facility]) Lab Results: +/- 30 days of the encounter This section includes the Chemistry and Hematology Lab Results on record with [facility] for the patient. Radiology Reports and Pathology Reports are provided separately, in subsequent sections.Lab Results This section contains the Chemistry/Hematology Results that were resulted 30 days before or 30 daysafter the date of the Encounter. Date/Time Source Result Type Result - Unit Interpretation Reference Range Comment Jun 05, 2021 10:48 [facility] ([facility]) TSH W/REFLEX TO FREE Specim en Type: PLASMA AM T4 No comment enter ed. Ordering Provid er: AURA WALKER Report Released Date/Time: Jun 05, 2021 10:37 AM Reporting Lab: [facility] [address] [facility] [address] Performing Lab: [facility] [address] TSH 3.83 0.35-4.94 Jun 05, 2021 [facility] ([facility]) COMPREHENSIVE METABOLIC Specim en Type: PLASMA 10:48 AM PANEL+MG No comment enter ed. Ordering Provid er: AURA WALKER Report Released Date/Time: Jun 05, 2021 10:37 AM Reporting Lab: [facility] [address] [facility] [address] Performing Lab: [facility] [address] CREATININE 1.4 H 0.7-1.2 UREA NITROGEN 25 [...] L >60 Jun 05, 2021 10:48 AM [facility] ([facility]) CBC Specimen Type: BLOOD Comment: Clumpe d Platelets. Invitro artefact. No clinical significance. Platelet count may be higher than stated value. Plt count = 136 K-cmm Ordering Provid er: AURA WALKER Report Released Date/Time: Jun 05, 2021 10:37 AM Reporting Lab: [facility] [address] [facility] [address] Performing Lab: [facility] [address] [facility] [address] WBC 3.43 L 4.0-11.0 RBC 3.53 L 4.6-6.2 HGB 12.1 L 13.5-17.9 HCT 36.1 L 41-54 MCV 102.3 H 80-100 MCH 34.3 H 27-33 MCHC 33.5 32.0-37.5 PLT comment MPV canc RDW 12.7 11.5-14.5 IPF canc Jun 05, 2021 10:48 AM [facility] ([facility]) HEMOGLOBIN A1C Specimen Type: BLOOD No comment enter ed. Ordering Provid er: AURA WALKER Report Released Date/Time: Jun 05, 2021 10:37 AM Reporting Lab: [facility] [address] [facility] [address] Performing Lab: [facility] [address] [facility] [address] HEMOGLOBIN A1C 5.1 4.0-6.0 Jun 05, 2021 10:48 AM [facility] ([facility]) PSA Specimen Type: SERUM No comment enter ed. Ordering Provid er: AURA WALKER Report Released Date/Time: Jun 05, 2021 10:39 AM Reporting Lab: [facility] [address] [facility] [address] Performing Lab: [facility] [address] [facility] [address] PSA 0.43 <4.00 Jun 05, 2021 [facility] ([facility]) LIPID PANEL,NON-FASTING Specim en Type: PLASMA 10:48 AM No comment enter ed. Ordering Provid er: AURA WALKER Report Released Date/Time: Jun 05, 2021 10:37 AM Reporting Lab: [facility] [address] [facility] [address] Performing Lab: [facility] [address] [facility] [address] CHOLESTEROL 239 H <199 .HDL 133 >40 LDL CALCULATION 91 <99 VLDL CALCULATION 15 <29 NON HDL CHOLESTEROL 106 <129 TRIG(NON FASTING) 76 <149 Vital Signs: All taken on the encounter date This section contains inpatient and outpatient Vital Signs collected on the date of the Encounter. Date/Time Temperature Pulse Blood Respiratory SP02 Pain Height Weight Kiet dy Source Pressure Rate Mass Index Jun 05, 62 135/77 100 % [facility] 10:16 /min mm[Hg] ER AM ([facility]) Jun 05, 98.4 F 63 147/82 16 /min 100 % 1 70.866 178.4 25 [facility] 2020 10:05 /min mm[Hg] in lb ER [facility] ([facility]) Social History: Smoking Status (Most current) and Tobacco Use (All prior to encounter date) This section includes the most current, and the historical, smoking and tobacco-related health factors from the [facility] facility where the Encounter took place.Current Smoking Status This section includes the most current smoking, or tobacco-related health factor, from the [place] facility where the Encounter took place. Date/Time Current Smoking Status Comment Facility Jun 05, 2021 10:00 AM VA-TOBACCO FORMER USER [facility] ([facility]) Tobacco Use History This section includes a history of the smoking, or tobacco- related health factors, that were collected on or before the date of the Encounter. The data comes from the [place] facility where the Encounter took place. Date/Time Smoking Status/Tobacco Use Comment Petros blanca Jun 05, 2021 10:00 AM VA-TOBACCO QUIT 15 YRS OR MORE [facility] ([facility]) May 23, 2020 11:00 AM VA-TOBACCO FORMER USER [facility] ([facility]) May 23, 2020 11:00 AM VA-TOBACCO QUIT 15 YRS OR MORE [facility] ([facility]) May 20, 2019 01:28 PM VA-TOBACCO FORMER USER [facility] ([facility]) May 20, 2019 01:28 PM VA-TOBACCO QUIT 15 YRS OR MORE [facility] ([facility]) Apr 28, 2018 11:47 AM VA-TOBACCO FORMER USER [facility] ([facility]) Apr 28, 2018 11:47 AM VA-TOBACCO QUIT 15 YRS OR MORE [facility] ([facility]) Jul 16, 2017 02:25 PM FORMER TOBACCO USER 7Y OR GREATER [facility] ([facility]) Jun 19, 2016 01:33 PM FORMER TOBACCO USER 7Y OR GREATER [facility] ([facility]) Jul 11, 2015 12:11 PM FORMER TOBACCO USER 7Y OR GREATER [facility] ([facility]) Jul 12, 2014 11:56 AM FORMER TOBACCO USER 7Y OR GREATER [facility] ([facility]) Aug 20, 2010 09:10 AM FORMER TOBACCO USER 7Y OR GREATER [facility] ([facility]) Radiology Reports: +/- 30 days of the [...] the Encounter. The data comes from all [place] treatment facilities. Date/Time Radiology Report Provider Source Jul 05, 2021 02:19 PM MRI-BRAIN (P): [facility] AAKASH THRASHER [id number] -1950 M Exm Date: JUL 05, 2021@14:19 Req Phys: AURA WALKER Loc: [facility] LD PA [facility] (Req'g Loc Img Loc: MRI IMAGING Service: Unknown (Case [id number] COMPLETE) MRI BRAIN/BRAINSTEM W/O CONTRAST (MRI Detailed) CPT:33230 Reason for Study: headaches, memory changes Clinical History: [place] IS NOT under investigation for COVID-19 or is COVID-19 negative memory changes, headaches, recent treatment for tongue cancer Responsible provider name and phone number to n otify for critical findings if other than user placing the order a nd pager listed below: User placing orders pager: LAST CREATININE____ Report Status: Verified Date Reported: JUL 05, 2021 Date Verified: JUL 05, 2021 Retail Wireless Sales Consultant E-Sig:/ES/JONATHAN STANLEY MD Report: MRI of the [...] Primary Interpreting Staff: JONATHAN STANLEY MD, RADIOLOGIST ([employer]ail [employer] Sales Consultant) /Wallace Encounter Notes: All associated encounter notes This section contains the clinical notes associated to the Encounter. Date/Time Encounter Note(s) Provider Source Jun 10, 2021 07:52 AM LETTERS: AURA WALKER ([facility]) LOCAL TITLE: FOLLOW UP RESULTS LETTER STANDARD TITLE: LETTERS DATE OF NOTE: JUN 10, 2021@07:52 ENTRY DATE: JUN 10, 2021@07:52:52 AUTHOR: AURA WALKER EXP COSIGNER: URGENCY: STATUS: COMPLETED [facility] [address] [place] [address] Jun AAKASH THRASHER [id number] [facility] [id number] Dear [place]: You should be receiving another letter with the results of the tests you had done at the [facility]. Your creatinine (renal function) is increased fr om 0.9 in May 2020 to 1.4 currently. This is evidence of renal disease. Your hemoglobin, white blood cell count, and red blood cell co unt are all slightly low. Please review these numbers with your outside provider t o determine if this is a stable finding or if this is a new increase. If the lab findings are new, then I recommend re peat labs in several weeks to assess for additional change s. If the lab findings are stable/consistent with your outside labs, then recommend continued surveilla nce. If you have further questions or problems, esvin e contact the call center at [phone] to speak with a nurse or leave me a message Sincerely, CARMELITA DIAZ PHYSICIAN SLEEVER Jun 05, 2021 10:45 AM H & P NOTE: AURA WALKER ([facility]) LOCAL TITLE: [facility] ANNUAL VISIT STANDARD TITLE: H & P NOTE DATE OF NOTE: JUN 05, 2021@10:45 ENTRY DATE: JUN 05, 2021@10:45:29 AUTHOR: AURA WALKER EXP COSIGNER: URGENCY: STATUS: COMPLETED Reason for Visit: Annual HPI: 71 year old MALE presenting for winifred ual exam. He is co-managed with [facility] and also [facility] for treatment of dutch munoz cancer. He states he is 'cancer free' after 35 radia tion treatments and 3 rounds of chemotherapy. He has noted increased difficulty with memory and inter mittent headaches. He is very insistent on having a head MRI done. Review of System: Negative aside from HPI. Past Medical History: Active problems - Computerized Problem List is t he source for the followin. Benign prostatic hyperplasia (SNOMED CT 2665 [id number]) 2. Polyp of colon (SNOMED CT 25582004) 3. Hypertension (SNOMED CT 84478919) 4. Cataract nos 5. Hydrocele of testis 6. Erectile dysfunction (SNOMED CT 620749890) 7. Impaired fasting glucose 8. Hyperlipidemia 9. Obesity 10. Aortic valve stenosis - mild per 07/2020 echo 11. 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 Umbilical hernia repair 2. Nasal septoplasty 3. Vasectomy Family History: 1. Adopted, unknown parents, 1 sister with histo ry unknown 2. 1 daughter healthy Social History: 1. . Lives in [place] with 2. Works [employer] in the summer, [employer] in winter 3. [employer] [id number] 4. Quit smoking in early 1999, 'socially' 5. Drinking 3 beers night on average FACILITY ALLERGY/ADR -------- No Remote Allergy/ADR Data available for [facility] DOXAZOSIN Active Outpatient Medications (including Supplie s): Active Non-VA Medications Status 1) Non-VA ALPRAZOLAM TAB 0.5MG IF NEEDED FOR ANX IETY ACTIVE 2) Non-VA ASPIRIN 81MG EC TAB 81MG MOUTH ACTIVE 3) Non-VA MULTIVITAMIN CAP/TAB 1 TABLET MOUTH EV ABBE DAY ACTIVE Physical Exam: Temp: 98.4 F [36.9 C] (06/05/2021 10:05) Pulse:62 (06/05/2021 10:16) BP: 135/77 (06/05/2021 10:16) Resp: 16 (06/05/2021 10:05) Weight: 178.4 lb [81.1 kg] (06/05/2021 10:05) O2 Sat: 100 (06/05/2021 10:16) BMI: 25.0 GENERAL: Alert, oriented, no acute distress. EYES: Sclera and conjunctiva clear. Pupils parvin l. ENT: EACs clear, TMs translucent. Nares patent. Mouth no erythema or lesions. NECK: Supple without lymphadenopathy. CV: Regular rate and rhythm. No murmur. CHEST: Lungs clear to auscultation bilaterally. ABDOMEN: Soft, nontender. No organomegaly noted. EXTREMITIES: Normal range of motion. No lower ex tremity edema. SKIN: Clean, dry, intact. No worrisome lesions n oted. NEURO: CN II-XII grossly intact. Gait appears no rmal. GENITOURINARY: Deferred. Assessment/Plan: 1. Hypertension 2. Hyperlipidemia 3. Impaired fasting glucose - Repeat labs today. Patient lost a significant amount of weight during treatment of his tongue cancer. 4. 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 - Continue to follow with outside providers. 5. Benign prostatic hyperplasia - No current concerns. Continue prostate supplem ent per patient preference. 6. Erectile dysfunction - Not currently using sildenafil. 7. Alcohol use - Set limits and drink below them. Discussed recommendations on daily and weekly limits. 8. History of colon polyps - Colonoscopy 11/07/14 3 polyps, tubular adenomas. Colonoscopy 07/19/19 with tubular adenomas, repeat due 07/2024. 9. Bilateral hydroceles, left greater than right - Patient states they are stable and not bothers ome. 10. Aortic stenosis, mild - No current symptoms. 11. Ascending aorta aneurysm - 4.2 cm 07/2020. Preventive care screening: - Colon cancer: as above - Prostate cancer: PSA 0.42 05/17/18, 0.29 05/20, 0.31 05/2020. Patient requesting PSA testing again, discussed recommen dations for screening at that PSA not recommended any longer. Patient still re questing PSA, so test was ordered. - Abdominal aortic aneurysm: ultrasound negative 09/05/12 - Lung cancer: not applicable, <30 pack year his tory - HIV: negative 08/20/10 - HCV: negative 08/20/10 RTC 1 year for annual. Clinical Reminders: Follow-up Pos Alcohol : Patient's AUDIT-C score was greater than or equ al to 5; brief alcohol intervention is indicated. Shared concern that the patient may be drinking at unhealthy levels known to increase his/her risk of alcohol related hea lth problems. Specifically the following were reviewed: High blood pressure, heart disease, liver disea se, seizures The patient was advised/informed to drink withi n safe limits, which are no more than 2 drinks per day on average and no mo re than 4 drinks on any one day AND no more than 14 drinks per week. Will d iscuss again at next visit. /coleman/ CARMELITA DIAZ PHYSICIAN SLEEVER Signed: 06/05/2021 10:59 Jun 05, 2021 10:15 AM ADVANCE DIRECTIVE: SAVANNAH WERNER ([facility]) LOCAL TITLE: AD NOTIFICATION AND SCREENING STANDARD TITLE: ADVANCE DIRECTIVE DATE OF NOTE: JUN 05, 2021@10:15 ENTRY DATE: JUN 05, 2021@10:15:07 AUTHOR: SAVANNAH WERNER EXP COSIGNER: URGENCY: STATUS: COMPLETED ADVANCE DIRECTIVE NOTIFICATION: Patient was given written notification of the f dorieing rights: 1. Accept or refuse any medical treatment. 2. Complete a durable power of securities attorney for [facility] care. 3. Complete a living will. ADVANCE DIRECTIVE SCREENING: Does patient have an Advance Directive? The patient does not have an Advance Directive. The patient does not wish to create an Advance Directive for health care. Herpes Zoster (Shingles) Vaccine: The patient declines to receive the herpes zost er vaccine. BP recheck 135/77 P-62 /es/ SAVANNAH WERNER [facility] Signed: 06/05/2021 10:16 Jun 05, 2021 10:07 AM PRIMARY CARE NOTE: SAVANNAH WERNER [facility] ([facility]) LOCAL TITLE: [facility] PROGRESS NOTE-[facility] STANDARD TITLE: PRIMARY CARE NOTE DATE OF NOTE: JUN 05, 2021@10:07 ENTRY DATE: JUN 05, 2021@10:07:57 AUTHOR: SAVANNAH WERNER EXP COSIGNER: URGENCY: STATUS: COMPLETED TYPE OF VISIT: Appointment Check In Type of appointment: In-person appointment REASON FOR VISIT: Annual, Co managed [facility] ALLERGIES: DOXAZOSIN (May 14, 2011) VITAL SIGNS: Blood Pressure: 147/82 (06/05/2021 10:05) Pulse: 63 (06/05/2021 10:05) Respiration: 16 (06/05/2021 10:05) Temperature: 98.4 F [36.9 C] (06/05/2021 10:05) Weight: 178.4 lb [81.1 kg] (06/05/2021 10:05) Height: 70.866 in [180.0 cm] (06/05/2021 10:05) BMI: 25.0 O2 Sat: 100 (06/05/2021 10:05) Pain: 1 (06/05/2021 10:05) PAIN SCREEN: Patient is not having significant pain that the y wish to discuss with their provider today. Alcohol Use Screen (AUDIT-C): Alcohol Screen: SCREEN FOR ALCOHOL (AUDIT-C) An alcohol screening test (AUDIT-C) was positiv e (score=7). 1. How often did you have a drink containing al cohol in the past year? Four or more times a week 2. How many drinks containing alcohol did you h ave on a typical day when you were drinking in the past year? One or two drinks 3. How often did you have six or more drinks on one occasion in the past year? Weekly Depression Screening: Perform PHQ-2 A PHQ-2 screen was performed. The score was 0 w hich is a negative screen for depression. Over the past two weeks, how often have you bee n bothered by the following problems? 1. Little interest or pleasure in doing things Not at all 2. Feeling down, depressed, or hopeless Not at all Suicide Screen: C-SSRS Screening [place] Suicide Severity Rating Scale (C-SSRS) screener 1. Over the past month, have you wished you wer e or wished you could go to sleep and not wake up? No 2. Over the past month, have you had any actual thoughts of killing yourself? No 3. Over the past month, have you been thinking about how you might do this? Response not required due to responses to other questions. 4. Over the past month, have you had these thou ghts and had some intention of acting on them? Response not required due to responses to other questions. 5. Over the past month, have you started to wor k out or worked out the details of how to kill yourself? Response not required due to responses to other questions. 6. If yes, at any time in the past month did yo u intend to carry out this plan? Response not required due to responses to other questions. 7. In your lifetime, have you ever done anythin g, started to do anything, or prepared to do anything to end you r life (for example, collected pills, obtained a gun, gave away valu estephanie, went to the roof but didn't jump)? No 8. If YES, was this within the past 3 months? Response not required due to responses to other questions. Tobacco Use Screening: The patient is a former tobacco user. The patient quit fifteen or more years ago. Homelessness/Food Insecurity Screen: In the past 2 months, have you been living in s table housing that you own, rent, or stay in as part of a household? Y es - Living in stable housing. Are you worried or concerned that in the next 2 months you may NOT have stable housing that you own, rent, or stay in a s part of a household? No - Not worried about housing near future The reports the following: Within the past 12 months, you worried whether your food would run out before you got money to buy more. Never true Within the past 12 months, the food you bought just didn't last and you didn't have money to get more. Never true Nursing Annual Screening: Fall History Screen During the past 12 months, have you had any fal ls? Patient does not report any falls in the past 1 2 months. MEDICATIONS: Patient does not have an active prescription fo r one of the following medications: Antihypertensives, Antidepressants , Antipsychotics, Diuretics, or Opioid Analgesics (Contolled Subs tance medications used for pain). FALL RISK ADVICE: Fall Risk Advice provided. Handout entitled Fa ll Prevention At Home reviewed and given to patient and/or significan t other. Script Talk Screen Are you able to read your prescription bottles with your glasses, magnifiers or other aids? Yes or patient not taking any prescriptions. Skin Screen Patient reports any current pressure ulcers, a history of pressure ulcers, or a wound from a lead medical technologist or Patient is bed-confined or a wheelchair-user or Patient requires assistance to transfer/change position No, Skin Screen is Negative Home Abuse/Violence Screen Is your home free of abuse and violence? Yes Outpatient Nutrition Screen Body Mass Index (BMI)= 25.0 [place]: Collection DT Specimen Test Name Result Units R ef Range 05/23/2020 12:08 BLOOD HEMOGLOBIN A1C 5.6 % 4.0 - 6.0 [place] Hgb A1C: No data available [place] Hgb A1C: No data available Point of Care Hgb A1C: POC HGB A1C____ Is patient's BMI less than 18.5? No Does patient have swallowing, coughing, or chew ing problems affecting oral intake? Yes Has patient experienced unplanned weight loss o r gain greater than 10 pounds over the last 2 months? No Is patient's Hgb A1C (Glycosylated Hemoglobin) greater than 9.5? Information not available Is patient receiving Total Parenteral Nutrition (TPN) or Tube Feedings? No Patient Health Education Screen BARRIERS/SPECIAL NEEDS: No barriers identified PREFERRED STYLE OF LEARNING: Watching something Listening Client Assistive Service (BENJI) Screen Does the patient require assistance with outpat ient visit? No /es/ SAVANNAH HUTSON [facility] Signed: 06/05/2021 10:13
--- OUTSIDE RECORDS SUMMARY | 2022-03-12 04:12 | XMS_ITS | Encounter Summary ---
:1950 Author Organization [facility] Address [address] [place] [id number] Support Name Relationship Address Phone ANDREIA THRASHER Unavailable [address] [place] [address] ANDREIA THRASHER Unavailable [id number] [place] [address] Insurance Providers: All historical and current Section [...] Galvan HUMANA MCR MEDICARE MCR Aug 03, [id number] [phone] LUCAS OKEEFE (WNR) ADVANTAGE (WNR) [phone] [id number] [phone] EN MEDICARE MEDICARE PART May 03, PART A [id number] LUCAS THRASHER (WNR) (M) A 2012 [id number] [phone] [place] MEDICARE MEDICARE PART May 03, PART B [id number] LUCAS THRASHER (WNR) (M) B 2012 [id number] [phone] EN Selected Encounter This section includes the information on record at [place] for the Encounter. Date/Time Encounter Type Encounter Reason Provider Source Description Nov 19, 2021 HC PRO PHONE TELEPHONE TRIAGE ICD-10-CM Z71.89 EVANGELIST LEDBETTER 10:45 AM CALL 5-10 MIN Other specified M counseling with Provider Comments: Other specified counseling IHE Encounter Template Text not used by [place] Assessments - Encounter Diagnoses This section includes the primary and secondary diagnoses documented for the Encounter. Date/Time Primary/Secondary Diagnosis Name Provider Source Diagnosis Nov 19, 2021 PRIMARY Other specified LENNIE LEDBETTER [facility] 10:45 AM counseling M [facility] Plan of Treatment: Future Appointments (+ 6 months) and Future Tests (+/- 45 days) The Plan of Treatment section includes future care activities for the patient from all [place] treatment[facility] healthities. This section includes future appointments and future orders which are active, pending orscheduled.Future Appointments This section includes appointments that were scheduled to occur 6 months from the date of the Encounter, up to a maximum of 20 appointments. The data comes from all [place] treatment facilities. Appointment Date/Time Appointment Type Appointment Facili ty Name Nov 22, 2021 09:30 AM AMBULATORY - [facility]IC[facility] [place] ([facility]) Jan 23, 2022 11:00 AM AMBULATORY - [facility] ([facility]) Jan 23, 2022 11:30 AM AMBULATORY MEDIC[place] ([facility]) Lab Results: +/- 30 days of the encounter This section includes the Chemistry and Hematology Lab Results on record with [place] for the patient. Radiology Reports and Pathology Reports are provided separately, in subsequent sections.Lab Results This section contains the Chemistry/Hematology Results that were resulted 30 days before or 30 daysafter the date of the Encounter. Date/Time Source Result Type Result - Unit Interpretation Reference Range Comment Nov 22, 2021 09:59 [place] ([facility]) TSH W/REFLEX TO FREE Specim en Type: PLASMA AM T4 No comment enter ed. Ordering Provid er: AURA WALKER Report Released Date/Time: Nov 22, 2021 09:52 AM Reporting Lab: [facility] [id number] Performing Lab: [facility] [id number] TSH 3.65 0.35-4.94 Nov 22, 2021 09:59 AM [place] ([facility]) CBC Specimen Type: BLOOD No comment enter ed. Ordering Provid er: AURA WALKER Report Released Date/Time: Nov 22, 2021 09:52 AM Reporting Lab: [facility] [address] [facility] [address] [facility] [address] Performing Lab: [facility] [id number] WBC 2.88 L 4.0-11.0 RBC 3.65 L 4.6-6.2 HGB 12.0 L 13.5-17.9 HCT 36.1 L 41-54 MCV 98.9 80-100 MCH 32.9 27-33 MCHC 33.2 32.0-37.5 PLT 152 150-400 MPV 10.5 H 7.4-10.4 RDW 12.8 11.5-14.5 Nov 22, 2021 09:59 AM [place] ([facility]) HEMOGLOBIN A1C Specimen Type: BLOOD No comment enter ed. Ordering Provid er: AURA WALKER Report Released Date/Time: Nov 22, 2021 09:52 AM Reporting Lab: [facility] [id number] Performing Lab: [facility] [id number] HEMOGLOBIN A1C 5.3 4.0-6.0 Nov 22, 2021 [place] ([facility]) COMPREHENSIVE METABOLIC Specim en Type: PLASMA 09:59 AM PANEL+MG No comment enter ed. Ordering Provid er: AURA WALKER Report Released Date/Time: Nov 22, 2021 09:52 AM Reporting Lab: [facility] [address] Performing Lab: [facility] [phone] CREATININE 1.4 H 0.7-1.2 UREA NITROGEN 28 H 8-26 GLUCOSE 85 74-100 SODIUM 139 136-145 POTASSIUM 4.6 3.5-5.1 CHLORIDE 104 98-107 CO2 27 22-29 CALCIUM 9.8 8.4-10.2 PROTEIN,TOTAL 6.9 6.0-8.3 ALBUMIN 4.3 3.5-5.2 BILIRUBIN, TOTAL 0.4 0.2-1.2 MAGNESIUM 2.1 1.6-2.6 ANION GAP 8 5-15 ALKALINE PHOSPHATASE 43 40-150 ALT/SGPT 17 <55 AST/SGOT 22 <34 CREAT EGFR(CKD-EPI) 53 L >60 Nov 22, 2021 [facility]) LIPID PANEL,NON-FASTING Specim en Type: PLASMA 09:59 AM No comment enter ed. Ordering Provid er: AURA WALKER Report Released Date/Time: Nov 22, 2021 09:52 AM Reporting Lab: [facility] [address] Performing Lab: [facility] [address] CHOLESTEROL 243 H <199 .HDL 104 >40 LDL CALCULATION 124 H <99 VLDL CALCULATION 15 <29 NON HDL CHOLESTEROL 139 H <129 TRIG(NON FASTING) 76 <149 Encounter Notes: All associated encounter notes This section contains the clinical notes associated to the Encounter. Date/Time Encounter Note(s) Provider Source Nov 19, 2021 10:45 AM NURSING TELEPHONE ENCOUNTER NOTE: Shagufta LEDBETTER [facility] LOCAL TITLE: TELEPHONE CARE NURSE TRIAGE STANDARD TITLE: NURSING TELEPHONE ENCOUNTER NOTE DATE OF NOTE: NOV 19, 2021@10:45:55 ENTRY DATE: NOV 19, 2021@10:55:38 AUTHOR: LENNIE LEDBETTER EXP COSIGNER: URGENCY: STATUS: COMPLETED Chief Complaint: Rash or Redness - Widespread The following identifiers were used to verify th is patient: . SSN. Author: LENNIE LEDBETTER Caller Area: [place] The patient, AAKASH THRASHER ([id number] ) called the call center. Caller Response: APPT GREATER THAN 24 HOURS Class Code: Other specified counseling. Contact Advised to contact Telephone Care for any questions, concerns, new or worsening symptoms; services available 23/02. Evaluation/Management Code: HC PRO PHONE CALL 5- 10 MIN ([id number]). Starting at: 11/19/2021 @ 10:45:55 AM Ending at: 11/19/2021 @ 10:54:31 AM Length: 8 minutes. Nurse Notes: Clinical Contact/Call Center Coronaviru s Disease 2019 (COVID-19) Screen, matilda. December 2020 DIAGNOSIS AND TESTING STATUS: Has [place] been diagnosed with COVID-19: () Yes* Date: (continue screening) (X) No (Continue Screening) Comment(s): Is waiting for COVID-19 test results: () Yes (Continue Screening) (X) No (Continue Screening) Comment: SCREEN: Signs and Symptoms: a. Fever or chills: () Yes Check all that apply: () Fever () Chills (X) No Comment(s): b. New or worsening cough or shortness of breat h: () Yes Check all that apply: () Cough () Shortness of breath (Dyspnea) (X) No Comment(s): c. Any cold or flu-like symptoms: () Yes Check all that apply: () Cold like symptoms () Runny Nose (Rhinorrhea) () Sore Throat () Flu-like symptoms () Fatigue () Muscle Pain (Myalgia) (X) No Comment(s): d. New onset diarrhea, nausea or vomiting: () Yes Check all that apply: () Diarrhea () Nausea () Vomiting (X) No Comment(s): e. New onset headache, loss of taste or loss of smell () Yes Check all that apply: () Headache () Loss of taste () Loss of smell (X) No Comment(s): EXPOSURE: Exposure (within 6 feet for more than 15 minute s) in the last two weeks (14 days) to someone with known or suspected sherley e of COVID-19: () Yes (X) No Comment(s): SCREEN RESULT: Any symptom or exposure= positiv e screen () POSITIVE SCREEN: Patient has a Positive symp lisandra and/or exposure. Follow- up required. (X) Negative Screen NURSES NOTES PATIENT CONCERN/DURATION/ONSET: [place] calling endorsing a wide spread rash for several weeks. Itchy and when he scratches g ets hives. Denies concerns with swallowing or breaching. Does not disrupt h is sleep. WHAT HAS PATIENT TRIED TO TREAT THE SYMP TOMS: Hydrocortisone cream not helping HISTORY/PREVIOUS TREATMENT: Recent tongue cancer treatment WHAT IS PATIENT GOAL FOR THE CALL: Evaluation of rash on Thursday morning if possible DID YOU CONSIDER USING CCC LIP (TELE or VVC): No BAT CARRIER DISPOSITION: Recommended triage is wit hin three days secondary to symptom duration and vet request. CAROLA able to sc hedule Thursday at 0930. [place] agrees with plan of care and matilda balizes via teach-back s/s to seek ED/ UC evaluation as well as home care advice offere d (e.g. if symptoms worsen or new symptoms present should seek medical care) a nd as outlined in education section below. Best contact for is (Jazmyne layton)[phone]. (Caller could accurately sum marize the agreed upon plan of care as discussed in the education log portion of this note.) Per policy, automated recommendations for an dyana ointment indicates an interaction (virtual or in-person) with the care team. rash everywhere itchy forms hives with scratch ing for weeks Protocol Used: Rash or Redness - Widespread Protocol-Based Disposition: See PCP or Video Vis it within 3 Days Video visit offer not recorded Positive Triage Question: * Mild widespread rash Care Advice Discussed: * Reassurance and Education - There are many causes of widespread rashes an d most of the time it is not serious. - Common causes include viral illness (non-spec ific viral exanthems) and allergic reactions (to a food, medicine or envir onmental exposure). * Antihistamine Medicines - Extra Notes and Warn ings - Antihistamine medicines can be used to treat allergic reactions, allergies, hay fever, hives, and itching. - Diphenhydramine (Benadryl) is a first generat ion antihistamine medicine. It causes more sleepiness than the newer second generation antihistamine medicines. The adult dosage of Benadryl is 25-50 mg by mouth and you can take it up to 4 times a day. - Second generation antihistamines such as ceti rizine and loratadine have fewer side effects than first generation antihis tamines. Loratadine is one of the least sedating antihistamines. - Caution: Antihistamine medicines can cause sl eepiness. Do not drink alcohol, drive, or operate dangerous machinery w hile taking this drug. - Before taking any medicine, read all the inst ructions on the package. * Oatmeal Aveeno Bath for Itching - Sprinkle contents of one Aveeno packet under running faucet with comfortably warm water. Bathe for 15 - 20 minute s, 1-2 times daily. - Pat dry using towel - do not rub. * Hydrocortisone Cream for Itching - You can use hydrocortisone for very itchy spo ts. - Put 1% hydrocortisone cream on the itchy area (s) 3 times a day. Use it for a couple days, until it feels better . This will help decrease the itching. - This is an mssg-lst-rsqdwnm (OTC) drug. You c an buy it at the drugstore. - Some people like to keep the cream in the ref rigerator. It feels even better if the cream is used when it is cold. - Caution: Do not use hydrocortisone cream for more than 1 week without talking to your doctor. - Read the instructions and warnings on the pac kage insert for all medicines you take. * Reasons To Call Back - Rash becomes purple or blood-colored or blist er-like - Fever occurs or severe itching - You become worse. Negative Triage Questions: * [1] Life-threatening reaction (anaphyl axis) in the past to similar substance (e.g., food, insect bite/sti ng, chemical, etc.) AND [2] < 2 hours since exposure * [1] Sudden onset of rash (within last 2 hours) AND [2] difficulty breathing or swallowing * Shock suspected (e.g., cold/pale/clammy skin, too weak to stand, low BP, rapid pulse) * Difficult to awaken or acting confused (e.g., disoriented, slurred speech) * [1] Purple or blood-colored spots or dots AND [2] fever * Sounds like a life-threatening emergency to e triager * [1] Widespread rash AND [2] bright red, sunbur n-like AND [3] current tampon use or nasal packing * [1] Widespread rash AND [2] bright red , sunburn-like AND [3] wound infection or recent surgery * [1] Bright red skin AND [2] peels off in sheet s * Stiff neck (can't touch chin to chest) * Fever * Joint pain or swelling * Patient sounds very sick or weak to the triage r * [1] Purple or blood-colored rash (spots or dot s) AND [2] no fever AND [3] sounds well to triager * Large or small blisters on skin (i.e., fluid f illed bubbles or sacs) * Bloody crusts on lips or sores in mouth * Face becomes swollen * [1] Headache AND [2] no fever * SEVERE itching (i.e., interferes with sleep, n ormal activities or school) * Sore throat * Ring-like appearance of ra sh (or ask: does it look like a target or bulls- eye) * Patient's Email Address: PCMM Provider Info: [facility] ([id number]) PACT: MEIR PACT WILD (Focus: [facility]om[facility]) Designated Pcp: AURA WALKER PHONE:[phone] Supportability Engineer: ANTOINE MONTAÑO PHONE:[phone] Clinical Associate: SAVANNAH WERNER PHONE:[phone] Client Leader: BEBETO AMES MASON:[phone] PACT Clinical Pharmacist: STEF FARMER Clinical POC: Administrative POC: Type of call: *TC SYMPTOM APPT. /coleman/ LENNIE LEDBETTER RN BAN PANCHITO VIS 23 DAYTIME TRIAGE R Signed: 11/19/2021 10:55 Receipt Acknowledged By: 11/19/2021 10:56 /coleman/ CARMELITA DIAZ PHYSICIAN MATERIAL EXPEDITOR
--- OUTSIDE RECORDS SUMMARY | 2022-03-12 04:14 | XMS_ITS | Encounter Summary ---
:1950 Author Organization [facility] Address [address] [place] [address] Support Name Relationship Address Phone ANDREIA THRASHER Unavailable [id number] [place] [address] ANDREIA THRASHER Unavailable [id number] [place] [address] Insurance Providers: All historical and current Section [...] Galvan HUMANA MCR MEDICARE MCR Aug 03, [id number] [phone] SUKHWINDER MoniqueLUCAS DC (WNR) ADVANTAGE (WNR) 2017 1 [id number] EN MEDICARE MEDICARE PART May 03, PART A [id number] 800 ANNA MARIELUCAS Rhys SERNA (WNR) (M) A 2012 [id number] EN MEDICARE MEDICARE PART May 03, PART B [id number] 800 ANNA MARIELUCAS Rhys SERNA (WNR) (M) B 2012 [id number] EN Selected Encounter This section includes the information on record at [place] for the Encounter. Date/Time Encounter Type Encounter Reason Provider Source Description Jan 27, 2022 02:41 Outpatient EVENT (HISTORICAL) SANTIAGO BARNES A M PM Encounter IHE Encounter Template Text not used by [place] Plan of Treatment: Future Appointments (+ 6 months) and Future Tests (+/- 45 days) The Plan of Treatment section includes future care activities for the patient from all [facility]. This section includes future appointments and future orders which are active, pending orscheduled.Active, Pending, and Scheduled Orders This section includes a listing of several types of active, pending, and scheduled orders, including clinic medications orders, diagnostic test orders, procedure orders and consult orders; where the start date of the order is 45 days before the date of the Encounter or 45 days after the date of the Encounter. The data comes from all [facility]. Test Date/Time Test Type Test Details Facility Name Feb 24, 2022 12:00 AM Laboratory - Chemistry ELP/IMMFIX,SERUM [facility] Order PANEL SERUM SP ONCE Feb 24, 2022 12:00 AM Laboratory - Chemistry COPPER PLASMA SP [facility] Order ONCE Lab Results: +/- 30 days of the encounter This section includes the Chemistry and Hematology Lab Results on record with [place] for the patient. Radiology Reports and Pathology Reports are provided separately, in subsequent sections.Lab Results This section contains the Chemistry/Hematology Results that were resulted 30 days before or 30 daysafter the date of the Encounter. Date/Time Source Result Type Result - Unit Interpretation Reference Range Comment Jan 23, 2022 10:45 [facility] (OC) PERIPHERAL SMEAR Specimen T ype: BLOOD AM PATHOLOGIST REVIEW No comment en tered. Ordering Provid er: IDALIA CHOW Report Released Date/Time: Nov 26, 2021 07:53 AM Reporting Lab: [facility] [address] [facility] [address] Performing Lab: [facility] [address] [facility] [address] PERIPHERAL SMEAR PATHOLOGIST REVIEW SLIDES MADE Jan 23, 2022 10:45 AM [facility] ([facility]) B 12 Specimen Type: SERUM No comment enter ed. Ordering Provid er: IDALIA CHOW Report Released Date/Time: Nov 26, 2021 07:53 AM Reporting Lab: [facility] [address] [facility] [address] Performing Lab: [facility] [address] [facility] [address] B 12 [phone] Jan 23, 2022 10:45 AM [facility] ([facility]) FOLATE Specimen Type: SERUM No comment enter ed. Ordering Provid er: IDALIA CHOW Report Released Date/Time: Nov 26, 2021 07:53 AM Reporting Lab: [facility] [address] [facility] [address] Performing Lab: [facility] [address] [facility] [address] FOLATE 17.0 >7.0 Jan 23, 2022 10:45 AM [facility] ([facility]) RETICS Specimen Type: BLOOD Comment: Automa adama Differential Performed Ordering Provid er: IDALIA CHOW Report Released Date/Time: Nov 26, 2021 07:53 AM Reporting Lab: [facility] [address] [facility] [address] Performing Lab: [facility] [address] [facility] [address] ABS RETIC 0.0582 0.0300-0.1000 .RETICULOCYTE 1.60 0.6-2.0 IMMATURE RETIC 9.4 1.0-14.0 .RETICULOCYTE HE 39.6 H 28.2-36.6 Jan 23, 2022 10:45 AM [facility] ([facility]) IRON GROUP Specimen Type: SERUM No comment enter ed. Ordering Provid er: IDALIA CHOW Report Released Date/Time: Nov 26, 2021 07:53 AM Reporting Lab: [facility] [address] [facility] [address] Performing Lab: [facility] [address] IRON 137 65-175 TIBC,CALCULATED 348 250-425 FERRITIN 69.6 21.8-274.7 IRON SATURATION 39 20-50 TRANSFERRIN [phone] Jan 23, 2022 10:45 AM [facility] ([facility]) CBC & DIFF Specimen Type: BLOOD Comment: Automa adama Differential Performed Ordering Provid er: IDALIA CHOW Report Released Date/Time: Nov 26, 2021 07:53 AM Reporting Lab: [facility] [address] [facility] [address] Performing Lab: [facility] [address] WBC 4.63 4.0-11.0 RBC 3.64 L 4.6-6.2 HGB 12.3 L 13.5-17.9 HCT 36.8 L 41-54 MCV 101.1 H 80-100 MCH 33.8 H 27-33 MCHC 33.4 32.0-37.5 PLT 156 150-400 MPV 10.7 H 7.4-10.4 NEUT 72.6 LYMPHS 15.1 MONO 7.8 EOSINO 3.0 BASO 1.5 RDW 13.3 11.5-14.5 ABS LYMPH 0.70 L 1.0-4.0 ABS MONO 0.36 0.1-1.0 ABS NEUT 3.36 2.0-7.7 ABS EOS 0.14 0-0.5 ABS BASO 0.07 0-0.2 IG(META,MYELO,PRO) 0.0 ABS IMMATURE GRAN 0.00 0-0.1 .RETICULOCYTE HE 39.6 H 28.2-36.6 Pathology Reports: +/- 30 days of the encounter Pathology Reports For cases when an order for pathology services may have been completed prior to the date of the Encounter, the report list includes the Pathology Reports that were completed up to 30 days before date of the Encounter. For cases when an order for pathology services may have been completed after the date of the Encounter, the report list also includes the Pathology Reports that were completed up to 30days after date of the Encounter. The data comes from all [place] treatment facilities. Date/Time Pathology Report Provider Source Jan 27, 2022 02:41 PM LR SURGICAL PATHOLOGY REPORT: TALITA BARNES [facility] LOCAL TITLE: LR SURGICAL PATHOLOGY REPORT STANDARD TITLE: PATHOLOGY REPORT DATE OF NOTE: JAN 27, 2022@14:41:07 ENTRY DATE: JAN 27, 2022@14:41:07 AUTHOR: TALITA BARNES EXP COSIGNER: URGENCY: STATUS: COMPLETED $APHDR Reporting Lab: [facility] [CLIA# [id number]] [place] [address] - - - - - - - - - - - - - - - - - - - - - - - - - - - - - - - - - - - - - - - - MEDICAL RECORD PERIPHERAL SMEAR - - - - - - - - - - - - - - - - - - - - - - - - - - - - - - - - - - - - - - - - PATHOLOGY REPORT Accession No. PS-MN [id number] - - - - - - - - - - - - - - - - - - - - - - - - - - - - - - - - - - - - - - - - $TEXT Submitted by: Date obtained: Jan 23, 2022 - - - - - - - - - - - - - - - - - - - - - - - - - - - - - - - - - - - - - - - - Specimen (Received Jan 24, 2022 07:25): PERIPHERAL SMEAR - - - - - - - - - - - - - - - - - - - - - - - - - - - - - - - - - - - - - - - - BRIEF CLINICAL HISTORY: - - - - - - - - - - - - - - - - - - - - - - - - - - - - - - - - - - - - - - - - PREOPERATIVE DIAGNOSIS: - - - - - - - - - - - - - - - - - - - - - - - - - - - - - - - - - - - - - - - - OPERATIVE FINDINGS: - - - - - - - - - - - - - - - - - - - - - - - - - - - - - - - - - - - - - - - - POSTOPERATIVE DIAGNOSIS: Surgeon/physician: IDALIA CHOW =-=-=-=-=-=-=-=-=-=-=-=-=-=- =-=-=-=-=-=-=-=-=-=-=-=-=-=-=-=-=-=-=-=-=-=-=-=-=-= - - - - - - - - - - - - - - - - - - - - - - - - - - - - - - - - - - - - - - - - PATHOLOGY REPORT Accession No. PS-MN [id number] - - - - - - - - - - - - - - - - - - - - - - - - - - - - - - - - - - - - - - - - Specimen: Abnormal CBC parameters include: Hgb 12.3 g/dL. The red blood cells are normochromic. Rare elliptocytes and occasional ovalocytes are seen. WBC and platelet morphology is essentially unremark able. Diagnosis: - Slight normochromic, borderline macrocytic an emia - No morphologic evidence of hemolysis or dyspl anita; follow-up recommended /coleman/ TALITA BARNES MD STAFF PATHOLOGIST, PATHOLOGY & LABORATORY MED C Signed Jan 27, 2022@14:41 Performing Laboratory: Surgical Pathology Report Performed By: [facility] [CLIA# [id number]] [facility] [employer] [place] [address] $FTR - - - - - - - - - - - - - - - - - - - - - - - - - - - - - - - - - - - - - - - - (End of report) TALITA BARNES MD [facility] [place] Date Jan 27, 2022 - - - - - - - - - - - - - - - - - - - - - - - - - - - - - - - - - - - - - - - - AAKASH THRASHER STANDARD FORM 515 ID:[id number] SEX:M :1950 AGE: 71 LOC: [id number] PCP: Idalia Chow /coleman/ TALITA BARNES MD STAFF PATHOLOGIST, PATHOLOGY & LABORATORY MED C Signed: 01/27/2022 14:41 Encounter Notes: All associated encounter notes This section contains the clinical notes associated to the Encounter. Date/Time Encounter Note(s) Provider Source Jan 27, 2022 02:41 PM PATHOLOGY REPORT: TALITA BARNES [facility] LOCAL TITLE: LR SURGICAL PATHOLOGY REPORT STANDARD TITLE: PATHOLOGY REPORT DATE OF NOTE: JAN 27, 2022@14:41:07 ENTRY DATE: JAN 27, 2022@14:41:07 AUTHOR: TALITA BARNES EXP COSIGNER: URGENCY: STATUS: COMPLETED $APHDR Reporting Lab: [facility] [CLIA# [id number]] [facility] [employer] [place] [address] - - - - - - - - - - - - - - - - - - - - - - - - - - - - - - - - - - - - - - - - MEDICAL RECORD PERIPHERAL SMEAR - - - - - - - - - - - - - - - - - - - - - - - - - - - - - - - - - - - - - - - - PATHOLOGY REPORT Accession No. PS-MN [id number] - - - - - - - - - - - - - - - - - - - - - - - - - - - - - - - - - - - - - - - - $TEXT Submitted by: Date obtained: Jan 23, 2022 - - - - - - - - - - - - - - - - - - - - - - - - - - - - - - - - - - - - - - - - Specimen (Received Jan 24, 2022 07:25): PERIPHERAL SMEAR - - - - - - - - - - - - - - - - - - - - - - - - - - - - - - - - - - - - - - - - BRIEF CLINICAL HISTORY: - - - - - - - - - - - - - - - - - - - - - - - - - - - - - - - - - - - - - - - - PREOPERATIVE DIAGNOSIS: - - - - - - - - - - - - - - - - - - - - - - - - - - - - - - - - - - - - - - - - OPERATIVE FINDINGS: - - - - - - - - - - - - - - - - - - - - - - - - - - - - - - - - - - - - - - - - POSTOPERATIVE DIAGNOSIS: Surgeon/physician: IDALIA CHOW =-=-=-=-=-=-=-=-=-=-=-=-=-=- =-=-=-=-=-=-=-=-=-=-=-=-=-=-=-=-=-=-=-=-=-=-=-=-=-= - - - - - - - - - - - - - - - - - - - - - - - - - - - - - - - - - - - - - - - - PATHOLOGY REPORT Accession No. PS-MN [id number] - - - - - - - - - - - - - - - - - - - - - - - - - - - - - - - - - - - - - - - - Specimen: Abnormal CBC parameters include: Hgb 12.3 g/dL. The red blood cells are normochromic. Rare elliptocytes and occasional ovalocytes are seen. WBC and platelet morphology is essentially unremark able. Diagnosis: - Slight normochromic, borderline macrocytic an emia - No morphologic evidence of hemolysis or dyspl anita; follow-up recommended /coleman/ TALITA BARNES MD STAFF PATHOLOGIST, PATHOLOGY & LABORATORY MED C Signed Jan 27, 2022@14:41 Performing Laboratory: Surgical Pathology Report Performed By: [facility] [CLIA# [id number]] [facility] [employer] [place] [address] $FTR - - - - - - - - - - - - - - - - - - - - - - - - - - - - - - - - - - - - - - - - (End of report) TALITA BARNES MD [facility] [place] Date Jan 27, 2022 - - - - - - - - - - - - - - - - - - - - - - - - - - - - - - - - - - - - - - - - AAKASH THRASHER EDYTA STANDARD FORM 515 ID:[id number] SEX:M :1950 AGE: 71 LOC: 68632 PCP: Idalia Chow /coleman/ TALITA BARNES MD STAFF PATHOLOGIST, PATHOLOGY & LABORATORY MED [facility] Signed: 01/27/2022 14:41
--- OUTSIDE RECORDS SUMMARY | 2022-03-12 04:14 | XMS_ITS | Encounter Summary ---
:[address] [facility] Address [address] [place] [address] Support Name Relationship Address Phone ANDREIA THRASHER Unavailable [id number] [place] [address] ANDREIA THRASHER Unavailable [id number] [place] [address] Insurance Providers: All historical and current Section [...] Galvan HUMANA MCR MEDICARE MCR Aug 03, [id number] [phone] SUKHWINDER MoniqueLUCAS DC (WNR) ADVANTAGE (WNR) 2017 1 [id number] EN MEDICARE MEDICARE PART May 03, PART A [id number] 800 ANNA MARIELUCAS Rhys SERNA (WNR) (M) A 2012 [id number] EN MEDICARE MEDICARE PART May 03, PART B [id number] LUCAS THRASHER (WNR) (M) B 2012 [id number] EN Selected Encounter This section includes the information on record at [place] for the Encounter. Date/Time Encounter Type Encounter Description Reason Provider Source Jan 23, 2022 04:03 Outpatient Encounter PRIMARY CARE/MEDICINE PM IHE Encounter Template Text not used by [place] Plan of Treatment: Future Appointments (+ 6 [...] the Encounter. The data comes from all [facility]. Test Date/Time Test Type Test Details Facility Name Feb 24, 2022 12:00 AM Laboratory - Chemistry ELP/IMMFIX,SERUM [facility] Order PANEL SERUM SP ONCE Feb 24, 2022 12:00 AM Laboratory - Chemistry COPPER PLASMA SP [facility] Order ONCE Lab Results: +/- 30 days of the encounter This section includes the Chemistry and Hematology Lab Results on record with [place] for the patient. Radiology Reports and Pathology Reports are provided separately, in subsequent sections.Lab Results This section contains the Chemistry/Hematology Results that were resulted 30 days before or 30 daysafter the date of the Encounter. Date/Time Source Result Type Result - Unit Interpretation Reference Range Comment Jan 23, 2022 10:45 AM [place] ([facility]) B 12 Specimen Type: SERUM No comment enter ed. Ordering Provid er: IDALIA CHOW Report Released Date/Time: Nov 26, 2021 07:53 AM Reporting Lab: [facility] [address] [facility] [address] Performing Lab: [facility] [address] [facility] [address] B 12 [phone] Jan 23, 2022 10:45 [facility] ([facility]) PERIPHERAL SMEAR Specimen T ype: BLOOD AM PATHOLOGIST REVIEW No comment en tered. Ordering Provid er: IDALIA CHOW Report Released Date/Time: Nov 26, 2021 07:53 AM Reporting Lab: [facility] [address] [facility] [address] Performing Lab: [facility] [address] [facility] [address] PERIPHERAL SMEAR PATHOLOGIST REVIEW SLIDES MADE Jan 23, 2022 10:45 AM [facility] ([facility]) FOLATE Specimen Type: SERUM No comment enter ed. Ordering Provid er: IDALIA CHOW Report Released Date/Time: Nov 26, 2021 07:53 AM Reporting Lab: [facility] [address] [facility] [address] Performing Lab: [employer] [facility] [address] [facility] [address] FOLATE 17.0 >7.0 Jan 23, 2022 10:45 AM [place] ([facility]) RETICS Specimen Type: BLOOD Comment: Automa adama Differential Performed Ordering Provid er: IDALIA CHOW Report Released Date/Time: Nov 26, 2021 07:53 AM Reporting Lab: [facility] [address] [facility] [address] Performing Lab: [facility] [address] ABS RETIC 0.0582 0.0300-0.1000 .RETICULOCYTE 1.60 0.6-2.0 IMMATURE RETIC 9.4 1.0-14.0 .RETICULOCYTE HE 39.6 H 28.2-36.6 Jan 23, 2022 10:45 AM [facility] ([facility]) IRON GROUP Specimen Type: SERUM No comment enter ed. Ordering Provid er: IDALIA CHOW Report Released Date/Time: Nov 26, 2021 07:53 AM Reporting Lab: [facility] [address] [facility] [address] Performing Lab: [facility] [address] IRON 137 65-175 TIBC,CALCULATED 348 250-425 FERRITIN 69.6 21.8-274.7 IRON SATURATION 39 20-50 TRANSFERRIN [phone] Jan 23, 2022 10:45 AM [place] ([facility]) CBC & DIFF Specimen Type: BLOOD Comment: Automa adama Differential Performed Ordering Provid er: IDALIA CHOW Report Released Date/Time: Nov 26, 2021 07:53 AM Reporting Lab: [facility] [address] [facility] [address] Performing Lab: [facility] [address] WBC 4.63 4.0-11.0 RBC 3.64 L 4.6-6.2 [...] the Encounter. The data comes from all [place] treatment facilities. Date/Time Pathology Report Provider Source Jan 27, 2022 02:41 PM LR SURGICAL PATHOLOGY REPORT: TALITA BARNES [facility] LOCAL TITLE: LR SURGICAL PATHOLOGY REPORT STANDARD TITLE: PATHOLOGY REPORT DATE OF NOTE: JAN 27, 2022@14:41:07 ENTRY DATE: JAN 27, 2022@14:41:07 AUTHOR: TALITA BARNES EXP COSIGNER: URGENCY: STATUS: COMPLETED $APHDR Reporting Lab: [facility] [CLIA# [id number]] [place] [address] - - - - - - - [...] Performing Laboratory: Surgical Pathology Report Performed By: [facility] [CLIA# [id number]] [place] [address] $FTR - - - - - - - - - - - - - - - - - - - - - - - - - - - - - - - - - - - - - - - - (End of report) TALITA BARNES MD [facility] [place] Date Jan 27, 2022 - - - - - - - - - - - - - - - - - - - - - - - - - - - - - - - - - - - - - - - - AAKASH THRASHER STANDARD FORM 515 ID:[id number] SEX:M :1950 AGE: 71 LOC: [address]459 PCP: Idalia Chow /coleman/ TALITA BARNES MD STAFF PATHOLOGIST, PATHOLOGY & LABORATORY MED C Signed: 01/27/2022 14:41 Encounter Notes: All associated encounter notes This section contains the clinical notes associated to the Encounter. Date/Time Encounter Note(s) Provider Source Jan 23, 2022 04:03 PM PRIMARY CARE NURSING NOTE: NEEL ROMAN ([facility]) LOCAL TITLE: [facility] NURSING PROGRESS NOTE STANDARD TITLE: PRIMARY CARE NURSING NOTE DATE OF NOTE: JAN 23, 2022@16:03 ENTRY DATE: JAN 23, 2022@16:03:52 AUTHOR: NEEL ROMAN EXP COSIGNER: URGENCY: STATUS: COMPLETED [facility] NURSING PROGRESS NOTE Has ADDENDA was in today for 2nd shingles shot. On his exit out he mentioned he has stopped taking his statin he was recently placed on due to feeling off when he takes it. Wanted pcp notified and a phon e call with follow up recommendations. /coleman/ NEEL ROMAN LPN [facility] Signed: 01/23/2022 16:05 Receipt Acknowledged By: 01/27/2022 08:45 /coleman/ CARMELITA DIAZ PHYSICIAN WEIGHTS AND MEASURES INSPECTOR 01/27/2022 ADDENDUM STATUS: COMPLETED Please follow-up with noah t regarding medication discontinuation. It is up to him whether he takes the medication. He can try taking it every other day or a lower dose can be sent if he prefers. /coleman/ CARMELITA DIAZ PHYSICIAN WEIGHTS AND MEASURES INSPECTOR Signed: 01/27/2022 08:46 Receipt Acknowledged By: 01/28/2022 11:18 /coleman/ ANTOINE MONTAÑO, RN, BSN Staff Nurse 01/27/2022 ADDENDUM STATUS: COMPLETED Called , unable to reach him, left VM /coleman/ ANTOINE MONTAÑO RN, BSN Staff Nurse Signed: 01/27/2022 13:45 01/27/2022 ADDENDUM STATUS: COMPLETED Called and left VM with . /delaney MONTAÑO RN, BSN Staff Nurse Signed: 01/27/2022 15:42 01/28/2022 ADDENDUM STATUS: COMPLETED Attempt to call , unable to reach him and unable to leave VM. Will wait for to return call. /delaney MONTAÑO RN, BSN Staff Nurse Signed: 01/28/2022 11:18
--- OUTSIDE RECORDS SUMMARY | 2022-03-12 04:14 | XMS_ITS | Encounter Summary ---
:1950 Author Organization [facility] Address [address] [place] [id number] Support Name Relationship Address Phone ANDREIA THRASHER Unavailable [id number] [place] [address] ANDREIA THRASHER Unavailable [id number] [place] [address] Insurance Providers: All historical and current Section [...] Galvan HUMANA MCR MEDICARE MCR Aug 03, [id number] [phone] LUCAS OKEEFE (WNR) ADVANTAGE (WNR) 2017 1 [id number] [phone] EN MEDICARE MEDICARE PART May 03, PART A [id number] 800 LUCAS THRASHER (WNR) (M) A 2012 EF75 [phone] EN MEDICARE MEDICARE PART May 03, PART B [id number] 800 LUCAS THRASHER (WNR) (M) B 2012 EF75 [phone] EN Selected Encounter This section includes the information on record at [place] for the Encounter. Date/Time Encounter Type Encounter Reason Provider Source Description Jan 23, 2022 IMMUNIZATION PRIMARY ICD-10-CM Z23 BEKAH ROMAN 11:30 AM ADMIN CARE/MEDICINE Encounter for LE M immunization with Provider Comments: Encounter for any immunization IHE Encounter Template Text not used by [facility] Assessments - Encounter Diagnoses This section includes the primary and secondary diagnoses documented for the Encounter. Date/Time Primary/Secondary Diagnosis Name Provider Source Diagnosis Jan 23, 2022 PRIMARY Encounter for THELMA ROMAN 11:07 AM immunization E M ([facility]) Plan of Treatment: Future Appointments (+ 6 months) and Future Tests (+/- 45 days) The Plan of Treatment section includes future care activities for the patient from all [place] treatmentfacilities. This section includes future appointments and [...] the Encounter. The data comes from all [place] treatment facilities. Test Date/Time Test Type Test Details Facility Name Feb 24, 2022 12:00 AM Laboratory - Chemistry ELP/IMMFIX,SERUM [facility] Order PANEL SERUM SP ONCE Feb 24, 2022 12:00 AM Laboratory - Chemistry COPPER PLASMA SP [facility] Order ONCE Lab Results: +/- 30 days of the encounter This section includes the Chemistry and Hematology Lab Results on record with [place] for the patient. Radiology Reports and Pathology Reports are provided separately, in subsequent sections.Lab Results This section contains the Chemistry/Hematology Results that were resulted 30 days before or 30 daysafter the date of the Encounter. Date/Time Source Result Type Result - Unit Interpretation Reference Range Comment Jan 23, 2022 10:45 AM [facility] ([facility]) B 12 Specimen Type: SERUM No comment enter ed. Ordering Provid er: AURA CHOW Report Released Date/Time: Nov 26, 2021 07:53 AM Reporting Lab: [facility] [address] [facility] [address] Performing Lab: [facility] [address] [facility] [address] B 12 [phone] Jan 23, 2022 10:45 [facility] ([facility]) PERIPHERAL SMEAR Specimen T ype: BLOOD AM PATHOLOGIST REVIEW No comment en tered. Ordering Provid er: AURA CHOW Report Released Date/Time: Nov 26, 2021 07:53 AM Reporting Lab: [facility] [address] [facility] [address] Performing Lab[facility] [address] PERIPHERAL SMEAR PATHOLOGIST REVIEW SLIDES MADE Jan 23, 2022 10:45 AM [facility] ([facility]) FOLATE Specimen Type: SERUM No comment enter ed. Ordering Provid er: AURA CHOW Report Released Date/Time: Nov 26, 2021 07:53 AM Reporting Lab: [facility] [address] [facility] [address] Performing Lab: [facility] [address] [facility] [address] FOLATE 17.0 >7.0 Jan 23, 2022 10:45 AM [facility] ([facility]) RETICS Specimen Type: BLOOD Comment: Automa adama Differential Performed Ordering Provid er: AURA CHOW Report Released Date/Time: Nov 26, 2021 07:53 AM Reporting Lab: [facility] [address] [facility] [address] Performing Lab: [facility] [address] [facility] [address] ABS RETIC 0.0582 0.0300-0.1000 .RETICULOCYTE 1.60 0.6-2.0 IMMATURE RETIC 9.4 1.0-14.0 .RETICULOCYTE HE 39.6 H 28.2-36.6 Jan 23, 2022 10:45 AM [place] ([facility]) IRON GROUP Specimen Type: SERUM No comment enter ed. Ordering Provid er: AURA CHOW Report Released Date/Time: Nov 26, 2021 07:53 AM Reporting Lab: [facility] [address] [facility] [address] Performing Lab: [facility] [address] IRON 137 65-175 TIBC,CALCULATED 348 250-425 FERRITIN 69.6 21.8-274.7 IRON SATURATION 39 20-50 TRANSFERRIN [phone] Jan 23, 2022 10:45 AM [facility] ([facility]) CBC & DIFF Specimen Type: BLOOD Comment: Automa adama Differential Performed Ordering Provid er: AURA CHOW Report Released Date/Time: Nov 26, 2021 07:53 AM Reporting Lab: [facility] [address] [facility] [address] Performing Lab: [facility] [address] [facility] [address] WBC 4.63 4.0-11.0 RBC 3.64 L 4.6-6.2 [...] 0.00 0-0.1 .RETICULOCYTE HE 39.6 H 28.2-36.6 Immunizations: All administered on the encounter date This section contains immunizations associated to the Encounter. Immunization Series Date Issued Reaction Comments ZOSTER RECOMBINANT 2 Jan 23, 2022 Social History: Smoking Status (Most current) and Tobacco Use (All prior to encounter date) This section includes the most current, and the historical, smoking and tobacco-related health factors from the [place] facility where the Encounter took place.Current Smoking Status This section includes the most current smoking, or tobacco-related health factor, from the [place] facility where the Encounter took place. Date/Time Current Smoking Status Comment [facility] Jun 05, 2021 10:00 AM VA-TOBACCO FORMER USER MEIR BUENROSTRO ([facility]) Tobacco Use History This section includes a history of the smoking, or tobacco- related health factors, that were collected on or before the date of the Encounter. The data comes from the [place] facility where the Encounter took place. Date/Time Smoking Status/Tobacco Use Comment [facility] Jun 05, 2021 10:00 AM VA-TOBACCO QUIT 15 YRS OR MORE [facility] ([facility]) May 23, 2020 11:00 AM VA-TOBACCO FORMER USER MEIR BUENROSTRO ([facility]) May 23, 2020 11:00 AM VA-TOBACCO QUIT 15 YRS OR MORE [place] ([facility]) May 20, 2019 01:28 PM VA-TOBACCO FORMER USER MEIR BUENROSTRO ([facility]) May 20, 2019 01:28 PM VA-TOBACCO QUIT 15 YRS OR MORE [facility] ([facility]) Apr 28, 2018 11:47 AM VA-TOBACCO FORMER USER [facility]ENROSTRO ([facility]) Apr 28, 2018 11:47 AM VA-TOBACCO QUIT 15 YRS OR MORE [facility] ([facility]) Jul 16, 2017 02:25 PM FORMER TOBACCO USER 7Y OR GREATER [facility] ([facility]) Jun 19, 2016 01:33 PM FORMER TOBACCO USER 7Y OR GREATER [facility] ([facility]) Jul 11, 2015 12:11 PM FORMER TOBACCO USER 7Y OR GREATER [facility] ([facility]) Jul 12, 2014 11:56 AM FORMER TOBACCO USER 7Y OR GREATER [facility] ([facility]) Aug 20, 2010 09:10 AM FORMER TOBACCO USER 7Y OR GREATER [facility] ([facility]) Pathology Reports: +/- 30 days of the [...] the Encounter. The data comes from all [place] treatment facilities. Date/Time Pathology Report Provider Source Jan 27, 2022 02:41 PM LR SURGICAL PATHOLOGY REPORT: TALITA BARNES [facility] LOCAL TITLE: LR SURGICAL PATHOLOGY REPORT STANDARD TITLE: PATHOLOGY REPORT DATE OF NOTE: JAN 27, 2022@14:41:07 ENTRY DATE: JAN 27, 2022@14:41:07 AUTHOR: TALITA BARNES EXP COSIGNER: URGENCY: STATUS: COMPLETED $APHDR Reporting Lab: [facility] [CLIA# [id number]] [place] [address] - - - - - - - [...] - - - - POSTOPERATIVE DIAGNOSIS: Surgeon/physician: AURA CHOW =-=-=-=-=-=-=-=-=-=-=-=-=-=- =-=-=-=-=-=-=-=-=-=-=-=-=-=-=-=-=-=-=-=-=-=-=-=-=-= - - - - [...] Performing Laboratory: Surgical Pathology Report Performed By: [facility] [CLIA# [id number]] [place] [address] $FTR - - - - - - - - - - - - - - - - - - - - - - - - - - - - - - - - - - - - - - - - (End of report) TALITA BARNES MD [facility] Date Jan 27, 2022 - - - - - - - - - - - - - - - - - - - - - - - - - - - - - - - - - - - - - - - - AAKASH THRASHER STANDARD FORM 515 ID:[id number] SEX:M :1950 AGE: 71 LOC: 88869 PCP: Aura Chow /coleman/ TALITA BARNES MD STAFF PATHOLOGIST, PATHOLOGY & LABORATORY MED C Signed: 01/27/2022 14:41 Encounter Notes: All associated encounter notes This section contains the clinical notes associated to the Encounter. Date/Time Encounter Note(s) Provider Source Jan 23, 2022 11:07 AM PRIMARY CARE NURSING NOTE: NEEL ROMAN ([facility]) LOCAL TITLE: [facility] NURSING PROGRESS NOTE STANDARD TITLE: PRIMARY CARE NURSING NOTE DATE OF NOTE: JAN 23, 2022@11:07 ENTRY DATE: JAN 23, 2022@11:07:59 AUTHOR: NEEL ROMAN EXP COSIGNER: URGENCY: STATUS: COMPLETED Herpes Zoster (Shingles) Vaccine: The patient received recombinant zoster vaccine (RZV) 0.5 ml IM in Left deltoid. Municipal Engineer: [employer] Lot#s and Expiration Date: [id number], [id number], Administered by protocol/policy Complications: None /coleman/ NEEL HUTSON [facility] Signed: 01/23/2022 11:08
--- OUTSIDE RECORDS SUMMARY | 2022-03-12 04:16 | XMS_ITS | Encounter Summary ---
:1950 Author Organization [facility] Address [address] [place] [address] Support Name Relationship Address Phone ANDREIA THRASHER Unavailable [phone] [place] [address] ANDREIA THRASHER Unavailable [phone] [place] [address] Insurance Providers: All historical and current Section [...] Galvan HUMANA MCR MEDICARE MCR Aug 03, [id number] [phone] SUKHWINDER EneidaLUCAS DC (WNR) ADVANTAGE (WNR) 2017 1 [id number] EN MEDICARE MEDICARE PART May 03, PART A [id number] 800 ANNA MARIELUCAS Rhys SERNA (WNR) (M) A 2012 EF75 [phone] EN MEDICARE MEDICARE PART May 03, PART B [id number] LUCAS THRASHER (WNR) (M) B 2012 [id number] EN Selected Encounter This section includes the information on record at [place] for the Encounter. Date/Time Encounter Type Encounter Reason Provider Source Description Feb 07, 2022 Outpatient HEMATOLOGY ICD-10-CM D64.9 REANNA BRANDT 04:18 PM Encounter Anemia, KELVIN S unspecified with Provider Comments: Anemia, unspecified IHE Encounter Template Text not used by [facility] Assessments - Encounter Diagnoses This section includes the primary and secondary diagnoses documented for the Encounter. Date/Time Primary/Secondary Diagnosis Name Provider Source Diagnosis Feb 07, 2022 PRIMARY Anemia, MANDY BRANDT V A 04:21 PM unspecified ARET S [facility] Plan of Treatment: Future Appointments (+ 6 months) and Future Tests (+/- 45 days) The Plan of Treatment section includes future care activities for the patient from all [place] [facility] This section includes future appointments and future [...] data comes from all [place] treatment facilities. Test Date/Time Test Type Test Details Facility Name Feb 24, 2022 12:00 AM Laboratory - Chemistry ELP/IMMFIX,SERUM [facility] Order PANEL SERUM SP ONCE Feb 24, 2022 12:00 AM Laboratory - Chemistry COPPER PLASMA SP [facility] Order ONCE Lab Results: +/- 30 days [...] Range Comment Jan 23, 2022 10:45 [facility] ([facility]) PERIPHERAL SMEAR Specimen T ype: BLOOD AM PATHOLOGIST REVIEW No comment en tered. Ordering Provid er: IDALIA WALKER Report Released Date/Time: Nov 26, 2021 07:53 AM Reporting Lab: [facility] [address] [facility] [address] Performing Lab: [facility] [address] [facility] [address] PERIPHERAL SMEAR PATHOLOGIST REVIEW SLIDES MADE Jan 23, 2022 10:45 AM [facility] ([facility]) B 12 Specimen Type: SERUM No comment enter ed. Ordering Provid er: IDALIA WALKER Report Released Date/Time: Nov 26, 2021 07:53 AM Reporting Lab: [facility] [address] [facility] [address] Performing Lab: [facility] [address] [facility] [address] B 12 [phone] Jan 23, 2022 10:45 AM [facility] ([facility]) FOLATE Specimen Type: SERUM No comment enter ed. Ordering Provid er: IDALIA WALKER Report Released Date/Time: Nov 26, 2021 07:53 AM Reporting Lab: [facility] [address] [facility] [address] Performing Lab: [facility] [address] FOLATE 17.0 >7.0 Jan 23, 2022 10:45 AM [place] ([facility]) RETICS Specimen Type: BLOOD Comment: Automa adama Differential Performed Ordering Provid er: IDALIA WALKER Report Released Date/Time: Nov 26, 2021 07:53 AM Reporting [facility] [address] Performing Lab: [facility] [address] ABS RETIC 0.0582 0.0300-0.1000 .RETICULOCYTE 1.60 0.6-2.0 IMMATURE RETIC 9.4 1.0-14.0 .RETICULOCYTE HE 39.6 H 28.2-36.6 Jan 23, 2022 10:45 AM [place] ([facility]) IRON GROUP Specimen Type: SERUM No comment enter ed. Ordering Provid er: IDALIA WALKER Report Released Date/Time: Nov 26, 2021 07:53 AM Reporting Lab: [facility] [address] Performing Lab: [facility] [address] IRON 137 65-175 TIBC,CALCULATED 348 250-425 FERRITIN 69.6 21.8-274.7 IRON SATURATION 39 20-50 TRANSFERRIN [phone] Jan 23, 2022 10:45 AM [place] ([facility]) CBC & DIFF Specimen Type: BLOOD Comment: Automa adama Differential Performed Ordering Provid er: IDALIA WALKER Report Released Date/Time: Nov 26, 2021 07:53 AM Reporting Lab: [facility] [address] Performing Lab: [facility] [address] WBC 4.63 4.0-11.0 RBC 3.64 L 4.6-6.2 [...] comes from all [place] treatment facilities. Date/Time Pathology Report Provider Source Jan 27, 2022 02:41 PM LR SURGICAL PATHOLOGY REPORT: TALITA BARNES [facility] LOCAL TITLE: LR SURGICAL PATHOLOGY REPORT STANDARD TITLE: PATHOLOGY REPORT DATE OF NOTE: JAN 27, 2022@14:41:07 ENTRY DATE: JAN 27, 2022@14:41:07 AUTHOR: TALITA BARNES EXP COSIGNER: URGENCY: STATUS: COMPLETED $APHDR Reporting Lab: [facility] [CLIA# [id number]] [place] [address] - - - - - - - [...] - - - POSTOPERATIVE DIAGNOSIS: Surgeon/physician: IDALIA WALKER =-=-=-=-=-=-=-=-=-=-=-=-=-=- =-=-=-=-=-=-=-=-=-=-=-=-=-=-=-=-=-=-=-=-=-=-=-=-=-= - - - - - [...] Performing Laboratory: Surgical Pathology Report Performed By: [facility] [CLIA# [id number]] [place] [address] $FTR - - - - - - - - - - - - - - - - - - - - - - - - - - - - - - - - - - - - - - - - (End of report) TALITA BARNES MD [facility] Date Jan 27, 2022 - - - - - - - - - - - - - - - - - - - - - - - - - - - - - - - - - - - - - - - - AAKASH THRASHER STANDARD FORM 515 ID:[id number] SEX:M :1950 AGE: 71 LOC: 15206 PCP: Idalia Walker /coleman/ TALITA BARNES MD STAFF PATHOLOGIST, PATHOLOGY & LABORATORY MED C Signed: 01/27/2022 14:41 Encounter Notes: All associated encounter notes This section contains the clinical notes associated to the Encounter. Date/Time Encounter Note(s) Provider Source Feb 10, 2022 08:15 AM LETTERS: IDALIA WALKER [facility] LOCAL TITLE: FOLLOW UP RESULTS LETTER STANDARD TITLE: LETTERS DATE OF NOTE: FEB 10, 2022@08:15 ENTRY DATE: FEB 10, 2022@08:15:34 AUTHOR: IDALIA WALKER EXP COSIGNER: URGENCY: STATUS: COMPLETED [facility] [place] [address] Jan AAKASH THRASHER [id number] [place] [address] Dear [place]: You should be receiving another letter with the results of the tests you had done at the [facility] Hematology has reviewed your blood results. They recommend 2 additional blood tests to complete the evaluation. They also cordelia mmend you cut back on alcohol intake. We will continue to monitor the complete blood count (CBC) for changes. If you have further questions or problems, esvin e contact the call center at [phone] to speak with a nurse or leave me a message Sincerely, CARMELITA DIAZ PHYSICIAN PATTERN DRAFTER Feb 07, 2022 04:18 PM HEMATOLOGY AND ONCOLOGY CONSULT: BRIGITTE BRANDT [facility] LOCAL TITLE: HEM/ONC/COAG CONSULT S STANDARD TITLE: HEMATOLOGY AND ONCOLOGY CONSULT DATE OF NOTE: FEB 07, 2022@16:18 ENTRY DATE: FEB 07, 2022@16:18:12 AUTHOR: BRIGITTE BRANDT EXP COSIGNER: URGENCY: STATUS: COMPLETED HEM/ONC/COAG CONSULT Has ADDENDA Date of service: 02/07/22 Reason for e-Consult: Anemia HPI: 71 yo M with PMH significant for 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 CBC normal until 06/2021 on labs collected for a nnual visit. Noted to have macrocytic anemia (Hgb 12.1) and mild leukopenia (WBC 3.43), no differential obtained. Labs from this date also notable for n ew elevation in Cr from 0.9 (last checked 05/2020) to 1.4, no liver abnormal ities. Repeat labs collected 11/22/21 showed persistent anemia (Hgb 12.0) with normal MCV, leukopenia (WBC 2.88), and Cr 1.4. Another set of labs showed continued anemia (Hgb 12.3, MCV 101.1) with normal WBC and Plts. Differential also obtained with mi ld lymphopenia. Reticulocytes slightly elevated. Additional test obtai eva including normal B12, folate, TSH, iron panel. Peripheral smear shows anemia withou t evidence of hemolysis or dysplasia. LABORATORY/IMAGING STUDIES: HGB 12.3 L (01/23/22) HCT 36.8 L (01/23/22) MCV 101.1 H (01/23/22) WBC 4.63 (01/23/22) ABS NEUT 3.36 (01/23/22) ABS LYMPH 0.70 L (01/23/22) PLT 156 (01/23/22) CREATININE 1.4 H (11/22/21) UREA NITROGEN 28 H (11/22/21) GLUCOSE 85 (11/22/21) CALCIUM 9.8 (11/22/21) POTASSIUM 4.6 (11/22/21) SODIUM 139 (11/22/21) CHLORIDE 104 (11/22/21) MAGNESIUM 2.1 (11/22/21) PO4____ PROTEIN,TOTAL 6.9 (11/22/21) ALBUMIN 4.3 (11/22/21) ALK PHOSPHATASE 43 (11/22/21) SGOT 22 (11/22/21) SGPT 17 (11/22/21) BILIRUBIN, TOTAL 0.4 (11/22/21) TSH 3.65 (11/22/21) Specimen Collection Date: Jan 23, 2022@10:45 Test name Result units Ref. range Site Code B 12 649 pg/mL 213 - 816 [618] FOLATE 17.0 ng/mL Ref: >=7.0 [618] IRON 137 ug/dL 65 - 175 [618] TRANSFERRIN 278 mg/dL 163 - 382 [618] TIBC,CALCULATED 348 ug/dL 250 - 425 [618] IRON SATURATION 39 % 20 - 50 [618] FERRITIN 69.6 ng/mL 21.8 - 274.7 [618] Specimen Collection Date: Nov 22, 2021@09:59 TSH 3.65 uIU/mL 0.35 - 4.94 [618] Peripheral smear 01/23/22 Specimen: Abnormal CBC parameters include: Hgb 12.3 g/dL. The red blood cells are normochromic. Rare elliptocytes and occasional ovalocytes are seen. WBC and platelet morphology is essentially unremark able. Diagnosis: - Slight normochromic, borderline macrocytic an emia - No morphologic evidence of hemolysis or dyspl anita; follow-up recommended ASSESSMENT: 71 yo M with mild macrocytic anemia of uncertain etiology. Majority of metabolic causes have been ruled out . Could check copper level to complete work-up. Would expect iron to b e depleted if ongoing blood loss since June (this should cause microcytic anemia an yway). No drugs on med list associated with macrocytosis. TSH and liver func tion are normal. Importantly blood smear is not suggestive of hem olysis or dysplasia and most recent CBC does not show abnormalities in other cell lines, so unlikely to be related to MDS. No reported B symptoms at recent visits. Could check SPEP to rule out multiple myeloma. No hypercalcemia. Mild MCV elevation could be caused by alcohol ab use (3 beers per night reported). Alcohol-induced m acrocytosis can be seen even in the absence of liver disease and typically resolves in 2-4 months aft er stopping alcohol intake. Additionally, alcohol abuse can also cause lymph ocytopenia, which was seen on most recent CBC/diff. Cr is noted to be elevated starting at the same time as anemia, so kidney disease remains in the diffe rential (of note, renal failure is another possible cause of lymphocytopenia). Anemia of chronic dis ease is also possible. RECOMMENDATIONS: - Check copper to complete metabolic work-up, tr eat if low. - Check SPEP. If M-spike is seen please reconsul t Hem/Onc. - Would recommend patient decrease, or ideally s top, alcohol consumption - Can continue to follow CBC 1-2 times per year, would obtain differential if leukopenia redevelops. - Please reconsult Hem/Onc if anemia wor sens (Hgb <10) or if he develops other cell line abnormalities. 35 min spent in total including time reviewing l ab results, reviewing EHR, coordination of care, and EHR documentation. /coleman/ CARMELITA MAURER PHYSICIAN PATTERN DRAFTER Signed: 02/07/2022 16:21 02/10/2022 ADDENDUM STATUS: COMPLETED Additional labs ordered as r equested above. PACT AMSA please contact patient to schedule lab draw. /coleman/ CARMELITA DIAZ PHYSICIAN PATTERN DRAFTER Signed: 02/10/2022 08:12 Receipt Acknowledged By: * AWAITING SIGNATURE * BEBETO AMES
--- OUTSIDE RECORDS SUMMARY | 2022-03-12 04:16 | XMS_ITS | Encounter Summary ---
:1950 Author Organization [facility] Address [address] [place] [address] Support Name Relationship Address Phone ANDREIA THRASHER Unavailable [phone] [place] [address] ANDREIA THRASHER Unavailable [id number] [place] [address] Insurance Providers: All historical and current Section [...] Galvan HUMANA MCR MEDICARE MCR Aug 03, [id number] [phone] SUKHWINDER MoniqueLUCAS DC (WNR) ADVANTAGE (WNR) 2017 1 [id number] EN MEDICARE MEDICARE PART May 03, PART B [id number] 800 ANNA MARIELUCAS Rhys SERNA (WNR) (M) B 2012 [id number] [phone] EN MEDICARE MEDICARE PART May 03, PART A [id number] 800 ANNA MARIELUCAS Rhys SERNA (WNR) (M) A 2012 [id number] EN Selected Encounter This section includes the information on record at [place] for the Encounter. Date/Time Encounter Type Encounter Description Reason Provider Source Feb 28, 2022 10:58 Outpatient Encounter PRIMARY CARE/MEDICINE AM E Encounter Template Text not used by [place] Plan of Treatment: Future Appointments (+ 6 [...] the Encounter. The data comes from all [place] treatment facilities. Test Date/Time Test Type Test Details Facility Name Feb 24, 2022 12:00 AM Laboratory - Chemistry ELP/IMMFIX,SERUM [facility] Order PANEL SERUM SP ONCE Feb 24, 2022 12:00 AM Laboratory - Chemistry COPPER PLASMA SP [facility] Order ONCE Encounter Notes: All associated encounter notes This section contains the clinical notes associated to the Encounter. Date/Time Encounter Note(s) Provider Source Feb 28, 2022 10:58 AM NO SHOW NOTE: BEBETO AMES ([facility]) LOCAL TITLE: NO SHOW/CANCELLATION CLINIC NOTE STANDARD TITLE: NO SHOW NOTE DATE OF NOTE: FEB 28, 2022@10:58 ENTRY DATE: FEB 28, 2022@11:00:14 AUTHOR: BEBETO AMES EXP COSIGNER: URGENCY: STATUS: COMPLETED [place] not seen for scheduled appointment due t o: cancelled Appointment Rescheduled: No left a VM to call back and r/s Mar 05 Lab and pcp appointment for Heart Palpitations. Please review patient chart and medications for renewal needs (if appropriate). Advise if any further follow-up. Notify this sig nee as additional signer for notification. /coleman/ MARIAN MILLER [facility] Signed: 02/28/2022 11:01 Receipt Acknowledged By: * AWAITING SIGNATURE * ANTOINE MONTAÑO * AWAITING SIGNATURE * AURA WALKER
--- OUTSIDE RECORDS SUMMARY | 2022-03-12 04:16 | XMS_ITS | Encounter Summary ---
:1950 Author Organization [facility] Address [address] [place] [address] Support Name Relationship Address Phone ANDREIA THRASHER Unavailable [id number] [place] [address] ANDREIA THRASHER Unavailable [phone] [place] [address] Insurance Providers: All historical and current Section [...] Galvan HUMANA MCR MEDICARE MCR Aug 03, [id number] [phone] SUKHWINDER EneidaLUCAS DC (WNR) ADVANTAGE (WNR) 2017 1 [id number] EN MEDICARE MEDICARE PART May 03, PART A [id number] ANNA MARIELUCAS Rhys SERNA (WNR) (M) A 2012 [id number] EN MEDICARE MEDICARE PART May 03, PART B [id number] LUCAS THRASHER (WNR) (M) B 2012 [id number] EN Selected Encounter This section includes the information on record at [place] for the Encounter. Date/Time Encounter Type Encounter Reason Provider Source Description Feb 25, 2022 HC PRO PHONE TELEPHONE TRIAGE ICD-10-CM Z71.89 KOSTA MYAO 12:21 PM CALL 11-20 MIN Other specified counseling with Provider Comments: Other specified counseling IHE Encounter Template Text not used by [place] Assessments - Encounter Diagnoses This section includes the primary and secondary diagnoses documented for the Encounter. Date/Time Primary/Secondary Diagnosis Name Provider Source Diagnosis Feb 25, 2022 PRIMARY Other specified CONCEPCION MAYO [facility] 12:21 PM counseling [facility] Plan of Treatment: Future Appointments (+ 6 months) and Future Tests (+/- 45 days) The Plan of Treatment section includes future care activities for the patient from all [facility]. This section includes future appointments and future [...] the Encounter. The data comes from all [facility]. Test Date/Time Test Type Test Details Facility Name Feb 24, 2022 12:00 AM Laboratory - Chemistry ELP/IMMFIX,SERUM [facility] Order PANEL SERUM SP ONCE Feb 24, 2022 12:00 AM Laboratory - Chemistry COPPER PLASMA SP [facility] Order ONCE Pathology Reports: +/- 30 days of the [...] the Encounter. The data comes from all [facility]. Date/Time Pathology Report Provider Source Jan 27, 2022 02:41 PM LR SURGICAL PATHOLOGY REPORT: TALITA BARNES [facility] LOCAL TITLE: LR SURGICAL PATHOLOGY REPORT STANDARD TITLE: PATHOLOGY REPORT DATE OF NOTE: JAN 27, 2022@14:41:07 ENTRY DATE: JAN 27, 2022@14:41:07 AUTHOR: TALITA ABRNES EXP COSIGNER: URGENCY: STATUS: COMPLETED $APHDR Reporting Lab: [facility] [CLIA# [id number]] [place] [address] - - - - - - - [...] Performing Laboratory: Surgical Pathology Report Performed By: [facility] [CLIA# [id number]] [place] [address] $FTR - - - - - - - - - - - - - - - - - - - - - - - - - - - - - - - - - - - - - - - - (End of report) TALITA BARNES MD [facility] Date Jan 27, 2022 - - - - - - - - - - - - - - - - - - - - - - - - - - - - - - - - - - - - - - - - AAKASH THRASHER EDYTA STANDARD FORM 515 ID:[id number] SEX:M :1950 AGE: 71 LOC: [address] PCP: Idalia Chow /coleman/ TALITA BARNES MD STAFF PATHOLOGIST, PATHOLOGY & LABORATORY MED C Signed: 01/27/2022 14:41 Encounter Notes: All associated encounter notes This section contains the clinical notes associated to the Encounter. Date/Time Encounter Note(s) Provider Source Feb 25, 2022 12:21 PM NURSING TELEPHONE ENCOUNTER NOTE: EVANGELIST MAYO [facility] LOCAL TITLE: TELEPHONE CARE NURSE TRIAGE STANDARD TITLE: NURSING TELEPHONE ENCOUNTER NOTE DATE OF NOTE: FEB 25, 2022@12:21:06 ENTRY DATE: FEB 25, 2022@12:38:40 AUTHOR: CONCEPCION MAYO EXP COSIGNER: URGENCY: STATUS: COMPLETED TELEPHONE CARE NURSE TRIAGE Has ADDENDA Chief Complaint: Not applicable to call. The following identifiers were used to verify th is patient: . SSN. Comments: Clinical Contact/Call Center Coronavirus Disease 2019 (COVID-19) Screen, matilda. December 2020 DIAGNOSIS AND TESTING STATUS: Has been diagnosed with COVID-19: () Yes* Date: (continue screening) (x) No (Continue Screening) Comment(s): Is [place] waiting for COVID-19 test results: () Yes (Continue Screening) (x) No (Continue Screening) Comment: SCREEN: Signs and Symptoms: a. Fever or chills: () Yes Check all that apply: () Fever () Chills (x) No Comment(s): b. New or worsening cough or shortness of breat h: () Yes Check all that apply: () Cough () Shortness of breath (Dyspnea) (x) No Comment(s): c. Any cold or flu-like symptoms: () Yes Check all that apply: () Cold like symptoms () Runny Nose (Rhinorrhea) () Sore Throat () Flu-like symptoms () Fatigue () Muscle Pain (Myalgia) (x) No Comment(s): d. New onset diarrhea, nausea or vomiting: () Yes Check all that apply: () Diarrhea () Nausea () Vomiting (x) No Comment(s): e. New onset headache, loss of taste or loss of smell () Yes Check all that apply: () Headache () Loss of taste () Loss of smell (x) No Comment(s): EXPOSURE: Exposure (within 6 feet for more than 15 minute s) in the last two weeks (14 days) to someone with known or josef pected case of COVID-19: () Yes (x) No Comment(s): SCREEN RESULT: Any symptom or exposure= positiv e screen () POSITIVE SCREEN: Patient has a Positive symp lisandra and/or exposure. Follow- up required. (x) Negative Screen NURSES NOTES PATIENT CONCERN/DURATION/ONS ET: c/o I have a scheduled appointment for blood draw on Thursday. I'd like to reschedule. I' d like to see doctor too. I have a little sound I'd like her to listen to my heart. I don't remember what they call it. I'd like to have them recheck. Bee n having off and on once and awhile pains in my chest. It's not really bad. W as about 3 days ago. Bothers me. 3 days ago, while walking around, pain on left s emily of chest, lasted half an hour. Radiated to left shoulder. At that time, h e denies he had shortness of breath, weakness/dizziness. Beating harder +he art palpitations Currently: Denies pain,n/v, shortness of breath, weakness/dizziness, heart palpitations. WHAT HAS PATIENT TRIED TO TREAT THE SYMPTOMS: no ne HISTORY/PREVIOUS TREATMENT: impaired fas ting glucose, hyperlipidemia, obesity, HTN, aneurysm of ascending aorta, aortic valve s tenosis. 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 DID YOU CONSIDER USING [facility] LIP (TELE or VVC): n/ a MEMBER OF TECHNICAL STAFF DISPOSITION: Due to severity, and time of 3 days ago, triage recommendation is evaluation at closest emergenc y department. [place] disagrees. [place] advised failure to follow recommendation s may result in worsening symptoms, which may become life-threatening. Due to distance from nearest [place], [place] advised that recommendation for care provided during the call does not constitute an approval or authorization for payment by the [place] or its staff. Triage Staff pro vided the [facility] Call Center [phone] number with instruction for notification of ER visit within 72 hours. [place] requesting PCP appointment. [place] advised of he has risk factors for cardi ac disease. Duration, location, radiation of pain associated with exercise and heart palpations, plus PMH significant for obesity, hyperlipide jonh, HTN, aneurysm of ascending aorta, aortic valve stenosis. Ok. did not verbalize agreement with POC. 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 Best contact for is [phone] (Verifi ed). (Caller accurately summarized the agreed upon plan of care as discussed in the 'care advice discussed' portion of this note.) Per policy, automated recommendations for an dyana ointment indicates an interaction (virtual or in-person) with the care team. Author: CONCEPCION MAYO Caller Area: *[facility] The patient, AAKASH THRASHER ([id number] ) called the call center. Caller Response: REFUSES ER FINANCIAL DISCLAIMER The following disclaimer was read to the caller: [place] advised that recommendation for care pro vided during the call does not constitute an approval or authorization for payment by the [place] or its staff. Triage Staff provided the [facility] Call Center [phone] number and instruction for notifica tion of ER visit within 72 hours. Class Code: Other specified counseling. Contact By not following the recomme nded advice could make your symptoms worse, or even life threatening. Advised to contact Telephone Care for any questions, concerns, new or worsening symptoms; services available 23/02. Evaluation/Management Code: HC PRO PHONE CALL 11 -20 MIN ([id number]). Starting at: 02/25/2022 @ 12:21:06 PM Ending at: 02/25/2022 @ 12:37:46 PM Length: 16 minutes. Nurse Notes: Protocol Used: Chest Pain Protocol-Based Disposition: Call EMS 911 Now Positive Triage Questions: * [1] Chest pain lasts > 5 minutes AND [2] age > 44 * [1] Chest pain lasts > 5 m inutes AND [2] age > 30 AND [3] one or more cardiac risk factors (e.g., diabetes , high blood pressure, high cholesterol, smoker, or strong family history of heart disease) * [1] Chest pain lasts > 5 minutes AND [2] histo ry of heart disease (i.e., angina, heart attack, heart failure, bypass surg poncho, takes nitroglycerin) * [1] Chest pain (or angina) comes and goes AN D [2] is happening more often (increasing in frequency) or getting worse (increasing in severity) (Exception: chest pains that last only a few seconds) * Pain also in shoulder(s) or arm(s) or jaw (Exc eption: pain is clearly made worse by movement) * [1] Chest pain lasts > 5 minutes AND [2] occur red in past 3 days (72 hours) (Exception: feels exactly the same as previously diagnosed heartburn and has accompanying sour taste in mouth) Care Advice Discussed: * Another Adult Should Drive - It is better and safer if another adult drive s instead of you. * Call EMS If - Severe difficulty breathing occurs - Passes out or becomes too weak to stand - You become worse * Bring Medicines Negative Triage Questions: * SEVERE difficulty breathing (e.g., struggling for each breath, speaks in single words) * Difficult to awaken or acting confused (e.g., disoriented, slurred speech) * Shock suspected (e.g., cold/pale/clammy skin, too weak to stand, low BP, rapid pulse) * Passed out (i.e., lost consciousness, collapse d and was not responding) * [1] Chest pain lasts > 5 minutes AND [2] descr ibed as crushing, pressure- like, or heavy * Heart beating < 50 beats per minute OR > 140 b eats per minute * Visible sweat on face or sweat dripping down f brianna * Sounds like a life-threatening emergency to e triager Patient's Email Address: PCMM Provider Info: [facility] ([facility]) ([id number]) PACT: MEIR PACT WILD (Focus: Womens Health) Designated Pcp: IDALIA CHOW PHONE:[phone] Repairer Kiln Car: ANTOINE MONTAÑO PHONE:[phone] Clinical Associate: SAVANNAH WERNER PHONE:[phone] Stretcher Leveler Operator: BEBETO AMES MASON:[phone] PACT Clinical Pharmacist: STEF FARMER Clinical POC: Administrative POC: Type of call: TC SYMPTOM ER. /coleman/ CONCEPCION MAYO, MSN, RN, PHN, PANCHITO, FAEN ROSSYN 23 Daytime manager drilling Signed: 02/25/2022 12:38 Receipt Acknowledged By: 02/25/2022 12:52 /delaney MONTAÑO RN, BSN Staff Nurse 02/25/2022 12:43 /coleman/ CARMELITA DIAZ PHYSICIAN SHUTTLE PREPARATION SUPERVISOR 02/25/2022 ADDENDUM STATUS: COMPLETED Please schedule patient with PCP per his request . /CARMELITA Parker PHYSICIAN SHUTTLE PREPARATION SUPERVISOR Signed: 02/25/2022 12:46 02/25/2022 ADDENDUM STATUS: COMPLETED RTC placed. /delaney MONTAÑO, RN, BSN Staff Nurse Signed: 02/25/2022 12:52 02/25/2022 ADDENDUM STATUS: COMPLETED 1st Contact: Called [place] at: [facility] Left message 02/25/2022 Phone number left for to call back: [phone] /MARIAN Banks [facility] Signed: 02/25/2022 13:03
--- OUTSIDE RECORDS SUMMARY | 2022-03-12 04:17 | XMS_ITS | Encounter Summary ---
:1950 Author Organization [facility] Address [address] [place] [address] Care Team Providers Name Role Phone Unavailable Primary Care Provider Unavailable Reason for Visit Reason Onset Date Comments Outpatient COVID-19 Testing 01/14/2022 Encounter Details Date Type Department Care Team Description 01/14/2022 External Outreach Department of Abdiel Cifuentes And Internal Medicine in [place] (Suspected) Exposure [place], [place] [address] To COVID-19 (Primary [address] [place], [place] Dx) [place] [phone] Social History Tobacco Use Types Packs/Day Years Used Date Smoking Tobacco: Never Assessed Sex Assigned at Date Recorded Not on file documented as of this encounter Progress Notes Gerardo Moncada, L.P.N. - 01/14/2022 9:03 AM CDT Encounter created for infectious disease screening. documented in this encounter Plan of Treatment Upcoming Encounters Date Type Specialty Care Team Description 04/23/2022 Appointment Radiation Oncology Fara Berger M.D. [address] [place], [place] [phone] (Wo rk) documented as of this encounter Visit Diagnoses Diagnosis Contact With And (Suspected) Exposure To COVID-19 - Primary documented in this encounter Additional Health Concerns Infection Onset Date Last Indicated Resolved Time COVID19 Pending 01/13/2022 01/13/202201/1401/14/2022 9:05 AM CDT COVID19 Pending 01/14/2022 01/15/2022 01/15/2022 12:21 PM CDT documented as of this encounter
--- OUTSIDE RECORDS SUMMARY | 2022-03-12 04:17 | XMS_ITS | Encounter Summary ---
:1950 Author Organization [facility] Address [address] [place] [address] Care Team Providers Name Role Phone Unavailable Primary Care Provider Unavailable Reason for Visit Radiation Therapy (Routine) - Closed Specialty Diagnoses / Procedures Referred By Contact Refer red To Contact Diagnoses Malignant Neoplasm Of Tongue Base (HCC) Serena Berger M.D. [facility] Procedures Prior Auth Rad Tx MD IMRT COMPLEX [address] [place], [place] [address] Referral ID Status Reason Start Date Expiration Date Visits Requ ested Visits Authorized [id number] Closed 08/13/2020 11/11/2020 35 35 Encounter Details Date Type Department Care Team Description 09/28/2020 Hospital Encounter Department of Radiation Chetna Berger I., Oncology in [place] [address] [place] [phone] Social History Tobacco Use Types Packs/Day Years Used Date Smoking Tobacco: Never Assessed Sex Assigned at Date Recorded Not on file documented as of this encounter Medications at Time of Discharge Medication Sig Dispensed Refills Start Date End Date acetaminophen (TYLENOL) Take 325 mg by mouth 0 325 mg tablet every 4 (four) hours as needed for pain. ALPRAZolam (XANAX) 1 mg as needed. 0 06/25/2020 tablet ASCORBIC ACID, VITAMIN C, Take by mouth. [address] ORAL aspirin [address] tablet TAKE ONE TABLET BY 0 05/03 MOUTH aspirin-calcium carbonate Take by mouth. 0 2008 81 mg-300 mg calcium(777 mg) tablet cholecalciferol (VITAMIN Take by mouth. 0 D3) 10 mcg/mL (400 Unit/mL) drops diphenhydramine-lidocaine Apply 15 mL to the 480 mL 0 -antacid (MAGIC mouth or throat 3 MOUTHWASH) 1:1:1 (three) times a day before meals. LORazepam (ATIVAN) 0.5 mg 0.5 mg. 0 08/15/2020 tablet multivitamin chewable Chew 1 tablet daily. 0 tablet OMEGA-3 FATTY Take by mouth. 0 [id number] ORAL prochlorperazine 10 mg every 8 0 08/08/2020 (COMPAZINE) 10 mg tablet (eight) hours as needed for nausea or vomiting. fluoride, sodium, Apply 1 application 1 Tube 12 1 08/08/2021 (PreviDent 5000 Dry to teeth at bedtime. Mouth) 1.1 % gel Floss,brush,rinse with baking soda solution. Apply thin ribbon of gel to tray and wear for 5 min. Do not rinse, eat, or drink for 30 minutes. documented as of this encounter Plan of Treatment Upcoming Encounters Date Type Specialty Care Team Description 04/23/2022 Appointment Radiation Oncology Fara Berger M.D. [address] [place], [place] [phone] (Wo rk) documented as of this encounter Visit Diagnoses Not on filedocumented in this encounter
--- OUTSIDE RECORDS SUMMARY | 2022-03-12 04:17 | XMS_ITS | Encounter Summary ---
:1950 Author Organization [facility] Address [address] [place] [address] Care Team Providers Name Role Phone Unavailable Primary Care Provider Unavailable Reason for Visit Radiation Therapy (Routine) - Closed Specialty Diagnoses / Procedures Referred By Contact Refer red To Contact Diagnoses Malignant Neoplasm Of Tongue Base (HCC) Serena Berger M.D. [facility] Procedures Prior Auth Rad Tx CA IMRT COMPLEX [address] [place], [place] [phone] Referral ID Status Reason Start Date Expiration Date Visits Requ ested Visits Authorized [id number] Closed 08/13/2020 11/11/2020 35 35 Encounter Details Date Type Department Care Team Description 09/26/2020 Hospital Encounter Department of Radiation Chetna Berger I., [place] [address] [place] [phone] Social History Tobacco Use Types Packs/Day Years [...] 0 D3) 10 mcg/mL (400 Unit/mL) drops LORazepam (ATIVAN) 0.5 mg 0.5 mg. 0 08/15/2020 tablet multivitamin chewable Chew 1 tablet daily. 0 tablet OMEGA-3 FATTY Take by mouth. 0 [id number] ORAL prochlorperazine 10 mg every 8 0 [...] rinse, eat, or drink for 30 minutes. diphenhydramine-lidocaine Apply 15 mL to the 480 mL 0 09/27/2020 -antacid (MAGIC mouth or throat 3 MOUTHWASH) 1:1:1 (three) times a day before meals. documented as of this encounter Plan of Treatment Upcoming Encounters Date Type Specialty Care Team Description 04/23/2022 Appointment Radiation Oncology Fara Berger M.D. [address] [place] [phone] (Wo rk) documented as of this encounter Visit Diagnoses Not on filedocumented in this encounter
--- OUTSIDE RECORDS SUMMARY | 2022-03-12 04:17 | XMS_ITS | Encounter Summary ---
:1950 Author Organization [facility] Address [address] [place] [address] Care Team Providers Name Role Phone Unavailable Primary Care Provider Unavailable Reason for Referral Radiation Therapy (Routine) - Canceled Specialty Diagnoses / Procedures Referred By Contact Refer red To Contact Diagnoses Malignant Neoplasm Of Tongue Base (HCC) Serena Berger M.D. [facility] Procedures Management Visit [address] [place] [phone] Referral ID Status Reason Start Date Expiration Date Visits V isits Requested Authorized [id number] Canceled 08/01/2020 08/01/2021 1 1 LOGIST Reason for Visit Reason Onset Date Comments Error 09/27/2020 Radiation Therapy (Routine) - Canceled Specialty Diagnoses / Procedures Referred By Contact Refer red To Contact Diagnoses Malignant Neoplasm Of Tongue Base (HCC) [facility] Berger [facility].D. [facility] Procedures Management Visit [address] [place] [phone] Referral ID Status Reason Start Date Expiration Date Visits V isits Requested Authorized [id number] Canceled 08/01/2020 08/01/2021 1 1 Encounter Details Date Type Department Care Team Description 09/26/2020 - Hospital Encounter Department of Serena Berger ENCOUNTER--DISREGARD (Primary Dx); 09/27/2020 Radiation Oncology Hardik Barber Malignant Neoplasm Of Tongue Base (HCC) in [place], [facility] [address] [place], [place] [address] [facility] [address] [place], [place] [phone] (Work) [phone] Social History Tobacco Use Types Packs/Day Years Used Date Smoking Tobacco: Never Assessed Sex Assigned at Date Recorded Not on file documented as of this encounter Last Filed Vital Signs Vital Sign Reading Time Taken Comments Blood Pressure 142/80 09/26/2020 9:31 AM CYTOLOGIST Pulse 75 09/26/2020 9:31 AM CYTOLOGIST Temperature 35.8 ??C (96.4 ??F) 09/26/2020 9:31 AM CYTOLOGIST Respiratory Rate - - Oxygen Saturation - - Inhaled Oxygen Concentration - - Weight 93 kg (205 lb 0.4 oz) 09/26/2020 9:31 AM CYTOLOGIST Height - - Body Mass Index 28.23 08/07/2020 9:56 AM CYTOLOGIST documented in this encounter Medications at Time of Discharge Medication Sig Dispensed Refills Start Date End Date acetaminophen (TYLENOL) Take 325 mg by mouth 0 325 mg tablet every 4 (four) hours as needed for pain. ALPRAZolam (XANAX) 1 mg as needed. 0 06/25/2020 tablet ASCORBIC ACID, VITAMIN C, Take by mouth. 0 ORAL aspirin-calcium carbonate Take by mouth. 0 2008 81 mg-300 mg calcium(777 mg) tablet cholecalciferol (VITAMIN Take by mouth. 0 D3) 10 mcg/mL (400 Unit/mL) drops LORazepam (ATIVAN) 0.5 mg 0.5 mg. 0 08/15/2020 tablet multivitamin chewable Chew 1 tablet daily. 0 tablet OMEGA-3 FATTY Take by mouth. 0 [id number] ORAL prochlorperazine 10 mg every 8 0 08/08/2020 (COMPAZINE) 10 mg tablet (eight) hours as needed for nausea or vomiting. aspirin [address] tablet TAKE ONE TABLET BY 0 05/03 MOUTH fluoride, sodium, Apply 1 application 1 Tube 12 1 08/08/2021 (PreviDent 5000 Dry to teeth at bedtime. Mouth) 1.1 % gel Floss,brush,rinse with baking soda solution. Apply thin ribbon of gel to tray and wear for 5 min. Do not rinse, eat, or drink for 30 minutes. documented as of this encounter Progress Notes Dione Mobley P.A.-C., M.S. - 09/26/2020 8:30 AM CST This encounter was created in error - please disregard. LOGIST documented in this encounter Plan of Treatment Upcoming Encounters Date Type Specialty Care Team Description 04/23/2022 Appointment Radiation Oncology Fara Berger M.D. [address] [place] [phone] (Wo rk) Scheduled Orders Name Type Priority Associated Diagnoses Order S chedule Management Visit Radiation Oncology Routine Malignant Neoplasm Once for 1 Of Tongue Base (HCC) Occurre nces starting 09/26/2020 unti l 09/26/2020 documented as of this encounter Visit Diagnoses Diagnosis ERRONEOUS ENCOUNTER--DISREGARD - Primary Malignant Neoplasm Of Tongue Base (HCC) documented in this encounter
--- OUTSIDE RECORDS SUMMARY | 2022-03-12 04:17 | XMS_ITS | Encounter Summary ---
:1950 Author Organization [facility] Address [address] [place] [address] Care Team Providers Name Role Phone Elsewhere, Pcp Primary Care Provider Unavailable Reason for Referral Outpatient (Routine) - Authorized Specialty Diagnoses / Procedures Referred By Contact Refer red To Contact Radiation Oncology Julian Randle M.D., [facility] [address] [place] [address] Referral ID Status Reason Start Date Expiration Date Visits V isits Requested Authorized [id number] Authorized 01/19/2022 01/19/2023 [address] Berger after labs at [facility] and outside follow-up with Dr. Fox (ENT) Outpatient (Routine) - Closed Specialty Diagnoses / Procedures Referred By Contact Refer red To Contact Radiation Oncology Dione Mobley P.A.-C., [facility] [address] [place] [address] Referral ID Status Reason Start Date Expiration Date Visits Requ ested Visits Authorized [id number] Closed 10/10/2021 10/10/2022 1 1 Scheduling Instructions Plan for scope. TSH prior at [facility] Reason for Visit Outpatient (Routine) - Closed Specialty Diagnoses / Procedures Referred By Contact Refer red To Contact Radiation Oncology Dione Mobley P.A.-C., [facility] [address] [place] [address] Referral ID Status Reason Start Date Expiration Date Visits Requ ested Visits Authorized [id number] Closed 10/10/2021 10/10/2022 1 1 Encounter Details Date Type Department Care Team Description 01/17/2022 - Hospital Encounter Department of Serena Berger nant Neoplasm 01/20/2022 Radiation Oncology Hardik Barber Of Tongue [facility] in [address] (HCC) (Primary Dx) [place], [place] [address] [facility] [address] [place], [place] [phone] [phone] (Work) [phone] Social History Tobacco Use Types Packs/Day Years Used Date Smoking Tobacco: Never Assessed Sex Assigned at Date Recorded Not on file documented as of this encounter Last Filed Vital Signs Vital Sign Reading Time Taken Comments Blood Pressure 138/75 01/17/2022 11:09 AM CDT Pulse 63 01/17/2022 11:09 AM CDT Temperature 36.7 ??C (98.1 ??F) 01/17/2022 11:09 AM CDT Respiratory Rate - - Oxygen Saturation - - Inhaled Oxygen Concentration - - Weight 80.7 kg (177 lb 14.6 oz) 01/17/2022 11:09 AM CDT Height - - Body Mass Index 24.5 08/07/2020 9:56 AM [employer] documented in this encounter Medications at Time [...] 2008 81 mg-300 mg calcium(777 mg) tablet cephalexin (KEFLEX) 500 mg Take 1 capsule (500 20 capsule 0 10/10/2021 capsule mg total) by mouth 4 (four) times a day. cholecalciferol (VITAMIN Take by mouth. 0 D3) 10 mcg/mL (400 Unit/mL) drops diphenhydramine-lidocaine- Apply 15 mL to the 480 mL 0 0 09/27/2020 antacid (MAGIC MOUTHWASH) mouth or throat 3 1:1:1 (three) times a day before meals. fluoride, sodium, Apply 1 application 100 mL 11 2 (PreviDent 5000 Dry Mouth) to the mouth or 1.1 % dental gel throat at bedtime. Dry mouth and or prevention of caries: Apply a thin ribbon to teeth with a toothbrush for at least 1 minute preferably at bedtime: expectorate gel and do not eat, drink, or rinse for 30 minutes. LORazepam (ATIVAN) 0.5 mg 0.5 mg. 0 08/15/2020 tablet magnesium 200 mg tablet Take 400 mg by mouth 0 every morning before breakfast. multivitamin chewable Chew 1 tablet daily. 0 tablet OMEGA-3 FATTY Take by mouth. 0 FSHRS-GGY-UAA ORAL prednisoLONE acetate (PRED 0 1 FORTE) 1 % ophthalmic suspension prochlorperazine 10 mg every 8 0 08/08/2020 (COMPAZINE) 10 mg tablet (eight) hours as needed for nausea or vomiting. tamsulosin (FLOMAX) 0.4 mg 0 2 24 hr capsule documented as of this encounter Progress Notes Julian Randle M.D., M.S. - 01/17/2022 11:15 AM CDT RADIATION ONCOLOGY FOLLOW-UP VISIT Supervising Pharmacovigilance Specialist: Dr. Serena Berger Home address: [address] [place] [phone] CHAPIN Mancini is a 71 y.o. 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 The patient's oncologic history is as follows: July 03, 2020: ??The patient presented to Dr. Fuller with a chief complaint of a headache for the past week. ??The pain was located behind his left ear with occasional radiation down his neck. ??Physical examination demonstrated a walnut sized mass that was fairly firm and mildly to moderately tender at the angle of the jaw on the left. 2. July 11, 2020: ??CT scan of the neck demonstrated bilateral cervical adenopathy. ??The largestlymph node was on the left measuring 3.6 cm, level IIB. ??Other abnormal lymph nodes were present more inferiorly measuring up to 1.2 cm. ??Upper limits of normal level IV lymph nodes were also presenton the left. ??On the right, multiple abnormal lymph nodes were present within level IIB, measuring up to 1.5 cm. Enlarged level IIA lymph node was present on the right measuring 1.7 cm. ??Additional partially necrotic lymph node was present more inferiorly, level IIA, measuring 1.4 cm. ??Numerous additional level IIB lymph nodes were present more inferiorly measuring up to 1.3 cm. ??Larynx and pharynx appeared normal. ??Normal salivary glands. ??Thyroid normal. 3. July 20, 2020: ??ENT consultation with Dr. Charly Fox where physical examination demonstrated slight firm granular tissue prominence along the left base of the tongue. ??Fiberoptic laryngoscopy confirmed an irregular granular tissue proliferation along the left base of the tongue that extended to midline. ??This did not extend down into the depth of the vallecular or onto the laryngeal surface of the epiglottis. ??This did not extend to the lateral pharyngeal wall. ??There was a large firmmass palpable over the left upper neck situated along level IIA and IIB extending deep to the sternocleidomastoid muscle. ??The mass was not densely fixed, but not fully mobile. 4. July 26, 2020: ??PET-CT scan demonstrated intensely FDG avid mass in the left oropharynx at the base of the tongue extending inferiorly and anteriorly within the larynx with SUV max 7.6. ??Moderate uptake along the anterior aspect of the tongue of uncertain significance. ??Intensely hypermetabolic bilateral cervical lymphadenopathy suspicious for metastatic disease, greater on the left. ??The largest left cervical lymph node measured approximately 3.0 x 1.7 cm with SUV max 11.3. ??No other evidence of FDG avid metastatic disease or lymphadenopathy elsewhere in the body. ??3 mm noncalcified pulmonary nodule along the right major fissure without FDG uptake. 5. July 30, 2020: ??Panendoscopy with biopsy of left base of tongue mass was performed by Dr. Fox. ??On palpation, there was a somewhat firm, irregular mass along the left lateral base of the tongue region. ??This did not extend onto the tonsillar fossa. ??The mass extended medially somewhat, but not palpable to the midline. ??The mass extended inferiorly into the base of the vallecula with palpation of the hyoid bone just inferior to the mass, but did not track onto the lingual surface of theepiglottis. ??The lesion measured approximately 2.5 cm. ??The lesion did not appear to be deeply invasive into the deep tongue musculature palpably. ??The tonsillar fossa was palpably normal. ??Pathology of the left base of tongue lesion demonstrated invasive non- keratinizing moderately differentiatedsquamous cell carcinoma. ??Positive for p16 by IHC. ?? 6.??August 13, 2020 through September 28, 2020: ??Radiation therapy to the tumor and bilateral involved lymph nodes to a dose of 7000 cGy in 35 fractions with the bilateral neck nodes levels Ia-V receiving 6300 cGy. ??He received concurrent cisplatin chemotherapy under the care of Dr. Méndez. 7. ?December 27, 2020: ??PET/CT shows significant reduction in the PET SUV in the left oropharynx withprevious SUV max of 7.6 and now down to 3.2. ??Resolution of neck nodes. ??No other metastatic disease. ??Increase in left hydrocele. 8.?March 29, 2021: ??CT neck soft tissue demonstrated a stable exam. ??Stable post-treatment changes. ??No evidence of recurrent lesion or adenopathy. 9.?July 08, 2021: CT scan of the neck soft tissue demonstrated no findings to suggest tumor progression or metastatic disease. ??Post treatment related changes throughout the neck soft tissues. ??TSH 2.6. 10. October 03, 2021: PET-CT scan demonstrated post-treatment changes within the head and neck soft tissues with no abnormal or hypermetabolic uptake suspicious for local recurrence. No suspicious upper cervical lymph nodes. No distant sites of tracer avid metastatic disease. Prior history of radiation 1. August 13 - September 28, 2020: ??Radiation therapy to the tumor and bilateral involved lymph nodes to 7000 cGy in 35 fractions with the bilateral neck nodes levels Ia-V receiving 6300 cGy, delivered with concurrent cisplatin chemotherapy . Interval history Since the patient was last seen in radiation oncology on 10/10/2021, he reports no significant changes in his medical history. He met with dentistry on 10/15/2021 and was recommended for extraction of teeth 16 and 31, although no follow-up appointment was made. In the clinic today, Antonio Mancini reports his primary concern is his ongoing submental edema. He has not noticed any lumps or masses. He completes daily massage in the morning, which seems to help. He reports stable mild taste alterations and xerostomia, although these are not particularly bothersome. He has not been wearing his fluoride trays and reports to new pain in his teeth. Patient reported symptom screen Fatigue (scale: 0 = no fatigue; 10 = worst fatigue you can imagine): 2 Pain (scale: 0 = no pain; 10 = worst pain you can imagine): 2 Overall quality of life (scale: 0 = as bad as can be; 10 = as good as can be): 8 Review of systems Review of systems as noted above. Past medical history Pertinent medications, allergies, past medical history, past surgical history, social history, and family history were reviewed. OBJECTIVE Vitals Weight: 80.7 kg, Temperature: 98.1 degrees Farenheit, Pulse: 63 beats per minute and Blood pressure:138/75 mmHg Physical exam ECO Constitutional: Pleasant, in no acute distress, normal weight, ambulates without an assistive device. HEENT: NCAT, sclera anicteric, EOMI, PEERL, b/l hearing intact, right external ear canal has small excoriation, right tympanic membrane intact, left external ear and tympanic membrane poorly visualizedsecondary to cerumen, no trismus, MMM, poor dentition with multiple chipped teeth and several crownsand caries, full tongue ROM, palate elevates and retracts symmetrically, no visible or palpable orallesions, thyroid click present. Nasal cavity was prepared with NeoSynephrine and lidocaine spray. A flexible fiberoptic scope was passed into the right nare. There were no masses, polyps, or lesions in the nasal cavity or nasopharynx. Examination of the epiglottis, aryepiglottic folds, true vocal cords, and false vocal cords does not reveal any masses or lesions. Examination of the vallcula and pyriform sinuses were limited by presence of saliva, although no abnormalities were appreciated. Vocal cord motility was normal. The base of tongue was examined as the scope was withdrawn and did not reveal any lesions. The patient tolerated the procedure well. ASSESSMENT/PLAN #1 Stage II (cT2, N2, M0, p16+) moderately differentiated left base of tongue squamous cell carcinoma??s/p definitive??chemoradiotherapy,??completed September 28, 2020 #2 Submental lymphedema #3 Dental caries Mr. Mancini is a 71 year old man with locally advanced oropharyngeal cancer who presents 17 months after completing definitive chemoradiation. Overall Antonio Mancini is doing well after completion of radiation. There is no clinical or radiographic evidence of disease. His submental lymphedema is largely stable and improved with daily massage. His dentition is quite poor, which predated radiation, and we reviewed that the patient should be utilizing his fluoride trays every night. The patient voiced his understanding. Further, we will have our desk schedule his appointment with oral maxillofacial surgery for tooth extraction. At this time we recommend continued clinical follow-up with return visit in 3 months. We recommendedthat the patient see his ENT Dr. Fox prior to that visit for scope examination, which was reassuring today. We will check his TSH at [facility] prior to that visit. Dr. Serena Berger is the senior science consultant; please see attestation for further details. Julian Randle M.D., M.S. Associated attestation - Serena Berger M.D. - 01/20/2022 8:06 AM CDT I saw and evaluated the patient and participated in the robledo portions of the service. I reviewed the documentation of Dr. Julian Randle and agree with the findings and plan. I was present for the nasopharyngoscopy exam. I saw nothing concerning. We stressed good dental care. We will see him back in 3 months. I personally spent 20 minutes in care of the patient today. Time includes both non face to face and face to face patient care. Serena Berger M.D., 01/17/2022 documented in this encounter Plan of Treatment Upcoming Encounters Date Type Specialty Care Team Description 04/23/2022 Appointment Radiation Oncology Fara Berger M.D. [address] [place], [place] [phone] (Wo rk) Scheduled Orders Name Type Priority Associated Diagnoses Order S chedule S-TSH Lab Routine Malignant Neoplasm Of Expect ed: 04/21/2022 (Thyroid-Stimulating Tongue Base (HCC) (A pproximate), Expires: Hormone - Sensitive) 023 Scheduled Referrals Name Type Priority Associated Order Schedule Diagnoses Radiation Oncology Outpatient Referral Routine On ce for 1 office visit Occurrences sta rting (clinic) 01/17/2022 unti l 01/17/2022 Radiation Oncology Outpatient Referral Routine Ex pected: 04/21/2022 office visit (Approximate), (clinic) Expires: 2022 documented as of this encounter Visit Diagnoses Diagnosis Malignant Neoplasm Of Tongue Base (HCC) - Primary documented in this encounter Care Teams Ceramics Test Engineer Relationship Specialty Start Date End Date Elsewhere, Pcp PCP - General Internal Medicine 01/15/22 documented as of this encounter
--- OUTSIDE RECORDS SUMMARY | 2022-03-12 04:17 | XMS_ITS | Encounter Summary ---
:1950 Author Organization [facility] Address [address] [place] [address] Care Team Providers Name Role Phone Unavailable Primary Care Provider Unavailable Encounter Details Date Type Department Care Team Description 10/03/2020 Orders Only [facility] PCP [facility] Sa elsa Rivero M.D. [address] [place], [place] [phone] (Kalpana sullivan) Social History Tobacco Use Types Packs/Day Years Used Date Smoking Tobacco: Never Assessed Sex Assigned at Date Recorded Not on file documented as of this encounter Plan of Treatment Upcoming Encounters Date Type Specialty Care Team Description 04/23/2022 Appointment Radiation Oncology Fara Berger M.D. [address] [place], [place] [phone] (Wo nate) documented as of this encounter Visit Diagnoses Not on filedocumented in this encounter
--- OUTSIDE RECORDS SUMMARY | 2022-03-12 04:17 | XMS_ITS | Encounter Summary ---
:1950 Author Organization [facility] Address [address] [place] [address] Care Team Providers Name Role Phone Elsewhere, Pcp Primary Care Provider Unavailable Encounter Details Date Type Department Care Team Description 01/17/2022 Ancillary Procedure Department of Oncology Social History Tobacco Use Types Packs/Day Years Used Date Smoking Tobacco: Never Assessed Sex Assigned at Date Recorded Not on file documented as of this encounter Plan of Treatment Upcoming Encounters Date Type Specialty Care Team Description 04/23/2022 Appointment Radiation Oncology Fara Berger M.D. [address] [place], [place] [phone] (Wo rk) documented as of this encounter Procedures Procedure Name Priority Date/Time Associated Diagnosis Comme nts ONCOLOGY IMAGE EXAM Routine 01/17/2022 11:30 AM R esults for this CDT procedure are i n the results section. documented in this encounter Results Video-Oral Cavity-Oncology Image Exam (01/17/2022 11:30 AM CDT) Specimen (Source) Anatomical Collection Method Collection Time Re ceived Time Location / / Volume Laterality 01/17/2022 11:30 AM CDT Narrative [facility] - 01/17/2022 12:45 PM CDT This order has been created and auto-finalized to support the import of images acquired without order. The clini sakshi documentation to support these images can be found on the encounter leti t produced images. Provider Not In System IMG NON RAD IMAGING PROCEDUR ES Performing Organization Address City/State/ZIP Code Phon e Number [facility] NA documented in this encounter Visit Diagnoses Not on filedocumented in this encounter Care Teams Workday Manager Relationship Specialty Start Date End Date Elsewhere, Pcp PCP - General Internal Medicine 01/15/22 documented as of this encounter
--- OUTSIDE RECORDS SUMMARY | 2022-03-12 04:17 | XMS_ITS | Encounter Summary ---
:1950 Author Organization [facility] Address [address] [place] [address] Care Team Providers Name Role Phone Unavailable Primary Care Provider Unavailable Reason for Visit Radiation Therapy (Routine) - Closed Specialty Diagnoses / Procedures Referred By Contact Refer red To Contact Diagnoses Malignant Neoplasm Of Tongue Base (HCC) Serena Berger M.D. [facility] Procedures Prior Auth Rad Tx NM IMRT COMPLEX [address] [place], [place] [address] Referral ID Status Reason Start Date Expiration Date Visits Requ ested Visits Authorized [id number] Closed 08/13/2020 11/11/2020 35 35 Encounter Details Date Type Department Care Team Description 09/25/2020 Hospital Encounter Department of Radiation Chetna Berger I., [place] [address] [place] [phone] Social History Tobacco Use Types Packs/Day Years [...] tablet OMEGA-3 FATTY Take by mouth. 0 [id number] ORAL prochlorperazine 10 mg every 8 0 [...] Radiation Oncology Fara Berger M.D. [address] [place] [phone] (Wo rk) documented as of this encounter Visit Diagnoses Not on filedocumented in this encounter
--- OUTSIDE RECORDS SUMMARY | 2022-03-12 04:17 | XMS_ITS | Encounter Summary ---
:1950 Author Organization [facility] Address [address] [place] [address] Care Team Providers Name Role Phone Elsewhere, Pcp Primary Care Provider Unavailable Encounter Details Date Type Department Care Team Description 02/04/2022 Clinical Communication Department of Shakira Velazquez Radiation Oncology in [facility] [address] [place] [address] Social History Tobacco Use Types Packs/Day Years Used Date Smoking Tobacco: Never Assessed Sex Assigned at Date Recorded Not on file documented as of this encounter Plan of Treatment Upcoming Encounters Date Type Specialty Care Team Description 04/23/2022 Appointment Radiation Oncology Fara Berger M.D. [address] [place], [place] [phone] (Wo rk) documented as of this encounter Visit Diagnoses Not on filedocumented in this encounter Care Teams Twist Tester Relationship Specialty Start Date End Date Elsewhere, Pcp PCP - General Internal Medicine 01/15/22 documented as of this encounter
--- OUTSIDE RECORDS SUMMARY | 2022-03-12 04:17 | XMS_ITS | Encounter Summary ---
:1950 Author Organization [facility] Address [address] [place] [address] Care Team Providers Name Role Phone Unavailable Primary Care Provider Unavailable Encounter Details Date Type Department Care Team Description 10/22/2021 Clinical Communication Department of Serena Berger Radiation Oncology willie Barber M.D. [facility] [address] [facility] [address] [place] [phone] Social History Tobacco Use Types Packs/Day Years Used Date Smoking Tobacco: Never Assessed Sex Assigned at Date Recorded Not on file documented as of this encounter Plan of Treatment Upcoming Encounters Date Type Specialty Care Team Description 04/23/2022 Appointment Radiation Oncology Fara Berger M.D. [address] [place], [place] [phone] (Wo rk) documented as of this encounter Visit Diagnoses Not on filedocumented in this encounter
--- OUTSIDE RECORDS SUMMARY | 2022-03-12 04:17 | XMS_ITS | Encounter Summary ---
:1950 Author Organization [facility] Address [address] [place] [address] Care Team Providers Name Role Phone Unavailable Primary Care Provider Unavailable Reason for Referral Outpatient (Routine) - Authorized Specialty Diagnoses / Procedures Referred By Referred To Contact Contact Oral and Maxillofacial Diagnoses Malignant Neoplasm Of Tongue Base (HCC) Seema Edgar [facility] on Surgery Procedures OMS Miscellaneous local D.D.S. [address] [place] [address] Referral ID Status Reason Start Date Expiration Date Visits V isits Requested Authorized [id number] Authorized 10/15/2021 10/15/2022 1 1 Reason for Visit Reason Comments Dental Return Visit Outpatient (Routine) - Closed Specialty Diagnoses / Procedures Referred By Contact Refer red To Contact Dental Specialties Dione Mobley P.A.-C., Joaquin Edgar, Antwon.Antwon.S. M.S. [address] [facility] [address] [place] [phone] Referral ID Status Reason Start Date Expiration Date Visits Requ ested Visits Authorized [id number] Closed 10/10/2021 10/10/2022 1 1 Encounter Details Date Type Department Care Team Description 10/15/2021 Office Visit Department of Dental Seema Edgar, Malign ant Neoplasm Of Tongue Base (HCC) (Primary Dx); Specialties in D.D.S. [facility]; [place], [place] [address] [facility] Edentulous Partial [address] [place] [phone] Social History Tobacco Use Types Packs/Day Years Used Date Smoking Tobacco: Never Assessed Sex Assigned at Date Recorded Not on file documented as of this encounter Progress Notes Seema Edgar D.D.S. - 10/15/2021 3:00 PM CDT SUBJECTIVE CHIEF COMPLAINT / REASON FOR VISIT Antonio Mancini is a 71 y.o. male who presents for follow up appointment regarding oral health issues in the post-radiation therapy setting. HISTORY OF PRESENT ILLNESS The following portions of the patient's history were reviewed and updated as appropriate: allergies and current medications. No contraindications to dental treatment. Mr. 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 He underwent definitive chemoradiation therapy consisting of 70Gy radiation to tumor site and bilateral lymph nodes in 35 fractions with 63Gy to uninvolved neck lymph nodes from August 13- Sep 28, 2020 with concurrent cisplatin chemotherapy. He was last seen by my service for pre-radiation therapy dental evaluation on 08/08/2020. At that time, the following recommendations were made: - Given active carious lesions, I advised that Mr. Mancini contact his local dental provider to at least have a hygiene visit/prophylaxis prior to initiating radiation therapy -I did instruct Mr. Mancini to immediately start with use of fluoride carrier therapy to at least help with decreasing the progression of existing caries; I instructed him to discontinue use of fluoride carriers should symptoms/side effects of radiation therapy cause significant discomfort and to re-initiate after concluding radiation therapy and recovery of oral cavity such that he is able to tolerate wearing the carriers (in general this may take at least 1 month after conclusion of radiation therapyto recover from mucositis sufficiently to tolerate using fluoride carriers) -I did instruct Mr. Mancini that he should pursue restorative treatment of dentition as soon as he is able to tolerate manipulation of intraoral structures after concluding radiation therapy. I did emphasize that caries do require interventional treatment and cannot be remineralized by fluoride treatmentalone. I explained that his carious lesions are away from the field of anticipated focal radiation therapy.I did advise that with regard to tooth #31 full gold crown buddhism, he may require treatment consisting of a new crown. I cannot determine how extensive the caries go underneath the existing crown and that this is best determined at the time of crown removal. I did explain that should caries demonstrate progression towards pulpal structures, it may warrant root canal therapy in addition to crown placement. Should caries on the tooth undermine the amount of usable coronal tooth structure such that restorability is compromised, I advise that he communicate with our service regarding restorative options as we would be happy to discuss strategies to either preserve the tooth or consider extractiontherapy. Extraction may be more feasible given that anticipated radiation field is on the opposite side, but as Mr. Mancini is receiving IMRT, we do anticipate some radiation exposure to the right mandible and continue to recommend that an oral surgeon work with him if an extraction of the tooth is warranted. Mr. Mancini reports experiencing generalized discomfort with his mandibular teeth and has lost a crown in the lower right region of the mouth. Although he did use his fluoride carriers during radiation therapy, he reports he has not been using Prevident and fluoride carriers since finishing radiotherapy and reports that his prescription ran out. Patient reports he is experiencing xerostomia and is usingHalls drops to counteract this. Recommended patient to use sugar free cough drops to assist with xerostomia. Mr. Mancini reports that he has been seen by a dental provider locally but he is concerned regarding what treatment needs he is able to pursue with radiation therapy. OBJECTIVE Extraoral: No significant asymmetries, lymphadenopathies, trismus; Temporomandibular Joints: Full range of motion. Negative for popping, clicking, deflection, or deviation Intraoral: No significant signs of abscesses, ulcerations, suppuration or purulence observed; xerostomia is notable; oral hygiene is fair with evidence of moderate supragingival plaque accumulation andslight supragingival calculus observed on the posterior molar dentition; gingival tissues do displaymarginal erythema consistent with gingivitis; no significant mobility observed with dentition Dental findings: 1- intact 2- DO composite, Occ amalgam, secondary caries D 3- DOFL composite, MO amalgam 4- DO amalgam 5- DO amalgam 6- Bu caries 7- Bu caries, incisal caries 8- incisal caries, incipient wear 9- Li caries, severe attrition 10 - severe attrition 11 - moderate attrition 12 - intact 13- MOL composite, DL amalgam 14- Bu composite, MOD amalgam 15- missing DOF restorative material, OL amalgam 16- DO caries, Occ amalgam 17- Occ amalgam 18- DOF amalgam, OL composite 19 - missing 20 - missing 21- Secondary class V caries 22 - intact 23 - intact 24 - intact 25 - intact 26 - intact 27 - intact 28- DO amalgam 29- MOD amalgam 30 - missing 31- Occ caries, missing coronal majority of coronal tooth structure with minimal dentition intact for appropriate resistance/retention form to support a tooth crown 32- intact DIAGNOSTICS Panoramic radiograph taken and reviewed.There are no central bony or odontogenic lesions in the bodyor ascending rami of the mandible. Mandibular condyles appear well rounded and well corticated with no signs of pathology. Maxillary sinuses appear to be clear without clouding or gross pathology. Radiolucencies within the coronal structure of teeth are evident with teeth #6, 7, 13, 15 16 observed andare clinically assessed to have caries. Dental roots appear normal with no signs of resorption or periapical radiolucencies. No dental caries is evident; however, this radiograph is non-diagnostic for all but the largest carious lesions. Periapical radiographs were obtained of the maxillary posterior left, mandibular posterior left, andmandibular posterior right dentition. The root apices of tooth #16 are not able to be visualized; there is some widening of the PDL aroundthe mesial root and furcation but no overt signs of caries extension into the pulp and notably pulpal structures demonstrate some calcification in both the pulpal chamber and canal spaces. Tooth #15 does show a coronal radiolucency; teeth #14-16 notably have calcification within pulpal structures and canals and no significant periapical pathology. Tooth #31 does show periapical radiolucencies at the root apices with minimal coronal tooth structure due to loss of crown and fracture to the pulp area. ASSESSMENT / PLAN #1 Malignant Neoplasm Of Tongue Base (HCC) #2 [facility]3 Edentulous Partial Face to face time spent with patient - 30 minutes with 50% in direct counseling and coordination of care I discussed findings with Mr. Mancini and treatment recommendations as follows: -There has been progression of dental disease like caries to other teeth since our last visit in August 2020. He should reinitiate use of fluoride carriers as a way to assist with slowing progression of caries development on the dentition. A new prescription was provided for Prevident such that he could proceed with using his fluoride carriers. -Tooth #31 is non-restorable due to lack of intact tooth structure to provide sufficient resistance and retention form for a new crown buddhism -Tooth #16 does have caries on the distal aspect and presents as a challenging tooth to properly restore due to limitations with access -I do recommend extractions of teeth #16 and 30 due to non-restorability and poor long-term prognosis. I will refer these procedures to our OMS colleagues and also alert his Radiation Oncology team with regard to this recommendation such that radiation doses to the mandibular right and maxillary left regions can be ascertained. -I do recommend that Mr. Mancini continue care with the general dental providers at [facility] for restorations that may include cleanings, fillings, and crowns for the remaining dentition. I emphasizedthat he does NOT have to wait to have extractions of teeth #16 and 31 completed prior to initiating general dental health care. He should start as soon as he is able with proceeding with treatments to preserve his remaining dentition. Mr. Mancini expressed understanding to the aforementioned information and had questions addressed. He is amenable to our recommendations and would like to proceed with having consultation and management of extractions of teeth #16 and 31. He otherwise tolerated today's procedures well and was dismissed without complication. Next visit: Follow-up as needed Jahaira Mauricio initiated documentation on behalf of Seema Edgar D.D.S. who completed documentation and performed the services. documented in this encounter Plan of Treatment Upcoming Encounters Date Type Specialty Care Team Description 04/23/2022 Appointment Radiation Oncology Fara Berger M.D. [address] [place], [place] [phone] (Wo rk) Scheduled Orders Name Type Priority Associated Diagnoses Order S chedule OMS Miscellaneous local Procedures Routine Malignant Neoplas m Of Expected: Tongue Base (HCC) 10/15/2021 (Approximate), Expires: 2022 documented as of this encounter Procedures Procedure Name Priority Date/Time Associated Diagnosis Comme nts MEDICAL PERIAPICAL Routine 10/17/2021 4:10 PM Malignant Neopla sm Results for this CDT Of Tongue Base ( HCC) procedure are in [facility] the results Edentulous Partial section. PERIAPICAL ADD'L Routine 10/17/2021 4:10 PM Malignant Neoplasm Results for this CDT Of Tongue Base ( HCC) procedure are in [facility] the results Edentulous Partial section. PERIAPICAL ADD'L Routine 10/17/2021 4:10 PM Malignant Neoplasm Results for this CDT Of Tongue Base ( HCC) procedure are in [facility] the results Edentulous Partial section. MEDICAL PANOREX Routine 10/17/2021 4:10 PM Malignant Neoplasm Results for this CDT Of Tongue Base ( HCC) procedure are in [facility] the results Edentulous Partial section. documented in this encounter Results Periapical Medical (10/17/2021 4:10 PM CDT) Specimen (Source) Anatomical Location Collection Method / Collectio n Time Received Time / Laterality Volume Narrative Seema Edgar D.D.S. - 10/17/2021 4:10 P M CDT Periapical image(s) taken tooth number(s): 16. Notes Periapical radiographs were obtained of the maxillary posterior left, mandibular posterior left, and mandibula r posterior right dentition. The root apices of tooth #16 are not abl e to be visualized; there is some widening of the PDL around the mesial ro ot and furcation but no overt signs of caries extension into the pulp and notably pulpal structures demonstrate some calcification in both t he pulpal chamber and canal spaces. Tooth #15 does show a coronal radiolucen cy; teeth #14-16 notably have calcification within pulpal structures a nd canals and no significant periapical pathology. Tooth #31 does show periapical radioluce ncies at the root apices with minimal coronal tooth structure due to l oss of crown and fracture to the pulp area Seema Edgar D.D.S. DENTAL ORDERABLES Periapical ADD'L (10/17/2021 4:10 PM CDT) Specimen (Source) Anatomical Location Collection Method / Collectio n Time Received Time / Laterality Volume Narrative Seema Edgar D.D.S. - 10/17/2021 4:10 P M CDT Additional periapical(s) taken tooth number(s): 30. Notes Periapical radiographs were obtained of the maxillary posterior left, mandibular posterior left, and mandibula r posterior right dentition. The root apices of tooth #16 are not abl e to be visualized; there is some widening of the PDL around the mesial ro ot and furcation but no overt signs of caries extension into the pulp and notably pulpal structures demonstrate some calcification in both t he pulpal chamber and canal spaces. Tooth #15 does show a coronal radiolucen cy; teeth #14-16 notably have calcification within pulpal structures a nd canals and no significant periapical pathology. Tooth #31 does show periapical radioluce ncies at the root apices with minimal coronal tooth structure due to l oss of crown and fracture to the pulp area Seema Edgar D.D.S. DENTAL ORDERABLES Periapical ADD'L (10/17/2021 4:10 PM CDT) Specimen (Source) Anatomical Location Collection Method / Collectio n Time Received Time / Laterality Volume Narrative Seema Edgar D.D.S. - 10/17/2021 4:10 P M CDT Additional periapical(s) taken tooth number(s): 19. Notes Periapical radiographs were obtained of the maxillary posterior left, mandibular posterior left, and mandibula r posterior right dentition. The root apices of tooth #16 are not abl e to be visualized; there is some widening of the PDL around the mesial ro ot and furcation but no overt signs of caries extension into the pulp and notably pulpal structures demonstrate some calcification in both t he pulpal chamber and canal spaces. Tooth #15 does show a coronal radiolucen cy; teeth #14-16 notably have calcification within pulpal structures a nd canals and no significant periapical pathology. Tooth #31 does show periapical radioluce ncies at the root apices with minimal coronal tooth structure due to l oss of crown and fracture to the pulp area Seema K Herve D.D.S. DENTAL ORDERABLES [facility] [facility] (10/17/2021 4:10 PM CDT) Specimen (Source) Anatomical Location Collection Method / Collectio n Time Received Time / Laterality Volume Narrative Seema Edgar D.D.S. - 10/17/2021 4:10 P M CDT There are no central bony or odontogenic lesions in the body or ascending rami of the mandible. Mandibular condyle s appear well rounded and well corticated with no signs of pathology. M axillary sinuses appear to be clear without clouding or gross patholog y. ??Radiolucencies within the coronal structure of teeth are evident w ith teeth #6, 7, 13, 15 16 observed and are clinically assessed to have caries. Dental roots appear normal with no signs of resorption or pe riapical radiolucencies. No dental caries is evident; however, this radiogr aph is non-diagnostic for all but the largest carious lesions. Seema Edgar D.D.S. DENTAL ORDERABLES documented in this encounter Visit Diagnoses Diagnosis Malignant Neoplasm Of Tongue Base (HCC) - Primary [facility] Edentulous Partial documented in this encounter
--- OUTSIDE RECORDS SUMMARY | 2022-03-12 04:17 | XMS_ITS | Encounter Summary ---
:1950 Author Organization [facility] Address [address] [place] [address] Care Team Providers Name Role Phone Elsewhere, Pcp Primary Care Provider Unavailable Reason for Visit Reason Comments Outpatient COVID-19 Testing Encounter Details Date Type Department Care Team Description 01/15/2022 Emergency [place] [facility] Alexander Oneil, C.N.P. Department [address] [place] [phone] (Wo rk) Social History Tobacco Use Types Packs/Day Years Used Date Smoking Tobacco: Never Assessed Sex Assigned at Date Recorded Not on file documented as of this encounter Last Filed Vital Signs Vital Sign Reading Time Taken Comments Blood Pressure 145/79 01/15/2022 11:51 AM CDT Pulse 69 01/15/2022 11:51 AM CDT Temperature - - Respiratory Rate 18 01/15/2022 11:51 AM CDT Oxygen Saturation 98% 01/15/2022 11:51 AM CDT Inhaled Oxygen Concentration - - Weight - - Height - - Body Mass Index - - documented in this encounter Medications at Time [...] tablet OMEGA-3 FATTY Take by mouth. 0 [id number] ORAL prednisoLONE acetate (PRED 0 1 FORTE) 1 % ophthalmic suspension prochlorperazine 10 mg every 8 0 08/08/2020 (COMPAZINE) 10 mg tablet (eight) hours as needed for nausea or vomiting. tamsulosin (FLOMAX) 0.4 mg 0 2 24 hr capsule documented as of this encounter ED Notes Candelaria Montes De Oca R.N. - 01/15/2022 12:00 PM CDT Pt presents to ED for COVID test for procedure he is having on Thursday. States that he was told this test needs to be completed in the [place] [facility] system. Denies any symptoms other than a runny nose. Pt declines any discharge education as he is not having any symptoms. Candelaria Montes De Oca R.N. 01/15/22 1201 documented in this encounter Plan of Treatment Upcoming Encounters Date Type Specialty Care Team Description 04/23/2022 Appointment Radiation Oncology Fara Berger M.D. [address] [place] [phone] (Wo rk) documented as of this encounter Procedures Procedure Name Priority Date/Time Associated Comments Diagnosis SARS CORONAVIRUS 2, STAT 01/15/2022 11:56 Resu lts for this PCR RAPID, V AM CDT procedure are i n the results section. documented in this encounter Results SARS Coronavirus 2, PCR Rapid, V Asymptomatic (01/15/2022 11:56 AM CDT) [facility] Method Time Signature SARS CoV-2, Undetected Undetected 01/15/2022 CNFL PCR, Rapid, V 12:21 PM CDT Comment: ----ADDITIONAL INFORMATION---- This RT-PCR test was performed using the Kaycee SARS-CoV-2 and Influenza A/B Reagent assay from [employer], which has received Emergency Use Authori zation(EUA) by the U.S. Food and Drug Administration . Fact sheets for this Emergency Use Autho rization (EUA) assay can be found at the following link s: For Healthcare Providers: https://www.fda.gov/media/540135/downloa d For Patients: https://www.fda.gov/media/422835/downloa d SARS Coronavirus 2, Source, Swab, Nasopharynx 01/01 12:00 PM CDT [facility] Rapid Specimen Anatomical Collection Method Collection Time Receive d Time (Source) Location / / Volume Laterality Varies 01/15/2022 11:56 01/15/2022 (Nasopharynx) AM CDT 12:00 PM CDT Munoz N Oneil C.N.P. LAB MICROBIOLOGY - GENERAL O RDERABLES Performing Organization Address City/State/[facility] Phon e Number [address] [place] [address] [address] documented in this encounter Visit Diagnoses Not on filedocumented in this encounter Additional Health Concerns Infection Onset Date Last Indicated Resolved Time COVID19 Pending 01/14/2022 01/15/2022 01/15/2022 12:21 PM CDT documented as of this encounter Care Teams Director Corporate Communications Relationship Specialty Start Date End Date Elsewhere, Pcp PCP - General Internal Medicine 6/15/22 documented as of this encounter
--- OUTSIDE RECORDS SUMMARY | 2022-03-12 04:17 | XMS_ITS ---
:1950 Author Organization [facility] Address [address] [place] [address] Care Team Providers Name Role Phone Elsewhere, Pcp Primary Care Provider Unavailable Active Problems Problem Noted Date Malignant Neoplasm Of Tongue Base 08/01/2020 Cancer Staging: Clinical stage from 07/04: Stage II (cT2, cN2, cM0, p16+) - Unsigned Current Oncology Plans No current plan information found. Past Plans No past plan information found. Radiation Treatments Plan Last Treated Elapsed Days Fractions Prescribed Prescribed Total On Treated Fraction Dose Dose F1 H&N_BOT 09/28/2020 46 35 of 35 200 cGy 7,000 cGy Reference Point Last Treated On Elapsed Days Session Dose Total Dos e [id number] 09/28/2020 46 200 cGy 7,000 cGy
--- OUTSIDE RECORDS SUMMARY | 2022-03-12 04:17 | XMS_ITS | Encounter Summary ---
:1950 Author Organization [facility] Address [address] [place] [address] Care Team Providers Name Role Phone Unavailable Primary Care Provider Unavailable Reason for Visit Radiation Therapy (Routine) - Closed Specialty Diagnoses / Procedures Referred By Contact Refer red To Contact Diagnoses Malignant Neoplasm Of Tongue Base (HCC) Serena Berger M.D. [facility] Procedures Prior Auth Rad Tx IN IMRT COMPLEX [address] [place], [place] [phone] Referral ID Status Reason Start Date Expiration Date Visits Requ ested Visits Authorized [id number] Closed 08/13/2020 11/11/2020 35 35 Encounter Details Date Type Department Care Team Description 09/27/2020 Hospital Encounter Department of Radiation Chetna Berger I., [place] [address] [place] [phone] Social History Tobacco Use Types Packs/Day Years [...] tablet OMEGA-3 FATTY Take by mouth. 0 [id number] ORAL prochlorperazine 10 mg every 8 0 [...] 04/23/2022 Appointment Radiation Oncology Fara Berger M.D. [address] [place] [phone] (Wo rk) documented as of this encounter Visit Diagnoses Not on filedocumented in this encounter
--- OUTSIDE RECORDS SUMMARY | 2022-03-12 04:17 | XMS_ITS | Encounter Summary ---
:1950 Author Organization [facility] Address [address] [place] [address] Care Team Providers Name Role Phone Unavailable Primary Care Provider Unavailable Reason for Referral Outpatient (Routine) - Closed Specialty Diagnoses / Procedures Referred By Contact Refer red To Contact Radiation Oncology Dione Mobley P.A.-C., [facility] [address] [place] [address] Referral ID Status Reason Start Date Expiration Date Visits Requ ested Visits Authorized [id number] Closed 07/12/2021 07/12/2022 1 1 Scheduling Instructions PET/CT scan prior at [facility]. Please get any updated records from Dr. Fox (ENT) and Dr. Méndez (Med Onc) as well. Thanks! AND CAP OPENER Outpatient (Routine) - Closed Specialty Diagnoses / Procedures Referred By Contact Refer red To Contact Radiation Oncology Dione Mobley P.A.-C., [place] [facility] [address] [place] [address] Referral ID Status Reason Start Date Expiration Date Visits Requ ested Visits Authorized [id number] Closed 04/12/2021 04/12/2022 [address] neck a few days prior at [facility]. Coordin ate with Dr. Méndez appointment also. AND CAP OPENER Reason for Visit Outpatient (Routine) - Closed Specialty Diagnoses / Procedures Referred By Contact Refer red To Contact Radiation Oncology Dione Mobley P.A.-C., [facility] [address] [place] [address] Referral ID Status Reason Start Date Expiration Date Visits Requ ested Visits Authorized [id number] Closed 04/12/2021 04/12/2022 1 1 Encounter Details Date Type Department Care Team Description 07/12/2021 Hospital Encounter Department of Serena Berger Neoplasm Radiation Oncology Hardik Barber Of Tongue Base (HCC) in [place], [address] [facility] (Primary Dx) [place], [place] [address] [facility] [address] [place], [place] [phone] (Work) [phone] Social History Tobacco Use Types Packs/Day Years Used Date Smoking Tobacco: Never Assessed Sex Assigned at Date Recorded Not on file documented as of this encounter Last Filed Vital Signs Vital Sign Reading Time Taken Comments Blood Pressure 149/80 07/12/2021 1:05 PM HAT AND CAP OPENER Pulse 70 07/12/2021 1:05 PM HAT AND CAP OPENER Temperature 37 ??C (98.6 ??F) 07/12/2021 1:05 PM HAT AND CAP OPENER Respiratory Rate - - Oxygen Saturation - - Inhaled Oxygen Concentration - - Weight 81.4 kg (179 lb 7.3 oz) 07/12/2021 1:05 PM HAT AND CAP OPENER Height - - Body Mass Index 24.71 08/07/2020 9:56 AM HAT AND CAP OPENER documented in this encounter Medications at Time of Discharge Medication Sig Dispensed Refills Start Date End Date ALPRAZolam (XANAX) 1 mg as needed. 0 06/25/2020 tablet ASCORBIC ACID, VITAMIN C, Take by mouth. 0 ORAL aspirin-calcium carbonate Take by mouth. 0 2008 81 mg-300 mg calcium(777 mg) tablet cholecalciferol (VITAMIN Take by mouth. 0 D3) 10 mcg/mL (400 Unit/mL) drops multivitamin chewable Chew 1 tablet daily. 0 tablet OMEGA-3 FATTY Take by mouth. 0 [id number] ORAL acetaminophen (TYLENOL) Take 325 mg by mouth 0 325 mg tablet every 4 (four) hours as needed for pain. aspirin [address] tablet TAKE ONE TABLET BY 0 10/1 12/2017 MOUTH diphenhydramine-lidocaine Apply 15 mL to the 480 mL 0 -antacid (MAGIC mouth or throat 3 MOUTHWASH) 1:1:1 (three) times a day before meals. LORazepam (ATIVAN) 0.5 mg 0.5 mg. 0 08/15/2020 tablet magnesium 200 mg tablet Take 400 mg by mouth 0 every morning before breakfast. prednisoLONE acetate 0 12/05/2020 (PRED FORTE) 1 % ophthalmic suspension prochlorperazine 10 [...] Progress Notes Dione Mobley P.A.-C., M.S. - 07/12/2021 1:30 PM CST SUBJECTIVE DIAGNOSIS 1. Malignant Neoplasm Of Tongue Base (HCC) SUPERVISED BY: Serena Berger M.D. HISTORY OF PRESENT ILLNESS Mr. 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 His oncologic history is as follows: 1. July 03, 2020: ??The patient presented to [...] other metastatic disease. ??Increase in left hydrocele. 8. ??March 29, 2021: CT neck soft tissue demonstrated a stable exam. Stable post-treatment changes.No evidence of recurrent lesion or adenopathy. 9. July 08, 2021: CT scan of the neck soft tissue demonstrated no findings to suggest tumor progression or metastatic disease. Post treatment related changes throughout the neck soft tissues. TSH 2.6. INTERVAL HISTORY The patient was seen and examined today with Dr. Berger. The patient reports doing well overall. He rates his fatigue as 5/10 in severity. He reports persistent tongue and throat soreness that comes and goes, rated 1-2/10 in severity. He thinks that the tongue soreness can be related to irritation from his teeth as well. He is eating all regular foods. He denies pain or difficulty with swallowing. He reports mouth dryness that is variable. He drinks extra water throughout the day with benefit. He estimates his taste at 50%. He has persistent submental lymphedema, most noticeable in the morning. He does massage each morning with good benefit. He is also continuing with neck and left arm range of motion exercises. He continues to attend therapy. He reports good jaw range of motion overall. He has not seen his dentist yet, but reports that he will soon. He did see Dr. Fox in ENT with a scope examination and he reports that it was negative. He also reports that he had a brain MRI scan done at the [facility] at his own request. He hasn't been notified of the result yet. REVIEW OF SYSTEMS Review of systems was negative except as documented above. PATIENT REPORTED SYMPTOM SCREEN FATIGUE (Scale: 0 = no fatigue; 10 = worst fatigue you can imagine): 5 PAIN (Scale: 0 = no pain; 10 = worst pain you can imagine): 1-2 OVERALL QUALITY OF LIFE (Scale: 0 = as bad as can be; 10 = as good as can be): 9 OBJECTIVE BP 149/80 (BP Location: Right arm, Patient Position: Sitting, Cuff Size: Small) Pulse 70 Temp 37??C (Temporal) Wt 81.4 kg BMI 24.71 kg/m?? PHYSICAL EXAM General: Patient is alert and oriented in no apparent distress. Neck: Visible mild submental lymphedema. ASSESSMENT / PLAN #1??Stage II, cT2 N2 M0, p16+ left base of tongue squamous cell carcinoma,??s/p definitive??chemoradiotherapy,?September 2020 #2 ??Submental lymphedema The patient is continuing to recover overall following chemoradiation therapy. We reviewed his recent CT scan result showing no evidence of recurrent lesion or metastatic disease. He is eating regular foods without difficulty. He is managing dryness well with extra fluid intake. His taste has increased to approximately 50%. He is continuing with therapy with good benefit for lymphedema and range of motion. He was encouraged to schedule a visit with his dentist soon. The reasoning behind close dentalfollow-up was emphasized today. I have asked our DOS staff to request the records from his recent visit with Dr. Fox as well as the brain MRI result for our review. The patient is scheduled for a visit with Dr. Méndez next Thursday. We will order for a PET-CT scan to be done at [facility] atthe 1 year ruba from treatment completion, in September 2021. We will schedule a return visit here following the imaging to review the results. The patient was asked to contact us sooner with questions or concerns. He verbally expressed his understanding of the plan. EDUCATION Ready to learn, no apparent learning barriers were identified; learning preferences include listening. Explained diagnosis and treatment plan; patient expressed understanding of the content. I personally spent 35 minutes in care of the patient today. Time includes both non face to face and face to face patient care. Signed by: Dione Mobley P.A.-C., M.S. 07/12/2021 1:42 PM HAT AND CAP OPENER [facility] [address] [place] [address] AND CAP OPENER Associated attestation - Serena Berger M.D. - 07/12/2021 3:12 PM HAT AND CAP OPENER saw and evaluated the patient and participated in the robledo portions of the service. I reviewed the documentation of Ms. Dione Mobley PA-C, and agree with the findings and plan. On exam he appears well. HEENT exam shows the right TM appears normal, I am not able to visualize the left due to cerumen. His oral cavity/oropharynx appears normal. His neck shows no adenopathy to palpation. He has some submental lymphedema. He saw and was scoped by Dr. Fox. He is doing very well recovering from his treatments. I would recommend another his PET/CT at our next follow-up visit in 3 months which will be his1 year post-treatment study. His questions were answered; he was comfortable with this plan. Serena Berger M.D., 07/12/2021 documented in this encounter Miscellaneous Notes Addendum Note - Serena Berger M.D. - 07/12/2021 1:30 PM HAT AND CAP OPENER Encounter addended by: Serena Berger M.D. on: 07/12/2021 3:13 PM Actions taken: Letter saved AND CAP OPENER Addendum Note - Kita Jha C.N.ADarwin - 07/12/2021 1:30 PM HAT AND CAP OPENER Encounter addended by: Kita Jha C.N.ADarwin on: 07/15/2021 10:31 AM Actions taken: Letter saved AND CAP OPENER documented in this encounter Plan of Treatment Upcoming Encounters Date Type Specialty Care Team Description 04/23/2022 Appointment Radiation Oncology Fara Berger M.D. [address] [place], [place] [phone] (Wo rk) Scheduled Referrals Name Type Priority Associated Order Schedule Diagnoses Radiation Oncology Outpatient Referral Routine On ce for 1 office visit Occurrences sta rting (clinic) 07/12/2021 unti l 07/12/2021 Radiation Oncology Outpatient Referral Routine Ex pected: 09/30/2021 office visit (Approximate), (clinic) Expires: 2021 documented as of this encounter Visit Diagnoses Diagnosis Malignant Neoplasm Of Tongue Base (HCC) - Primary documented in this encounter
--- OUTSIDE RECORDS SUMMARY | 2022-03-12 04:17 | XMS_ITS | Encounter Summary ---
:[address] [facility] Address [address] [place] [address] Care Team Providers Name Role Phone Unavailable Primary Care Provider Unavailable Reason for Referral Outpatient (Routine) - Closed Specialty Diagnoses / Procedures Referred By Contact Refer red To Contact Radiation Oncology Serena Berger [facility] [address] [place] [phone] Referral ID Status Reason Start Date Expiration Date Visits Requ ested Visits Authorized [id number] Closed 01/01/2021 01/01/2022 1 1 Scheduling Instructions Coordinate with Dr. Méndez at [facility] and Dr Darwin Fox (ENT) Outpatient (Routine) - Closed Specialty Diagnoses / Procedures Referred By Contact Refer red To Contact Radiation Oncology Dione Mobley P.A.-C., [facility] [address] [place] [address] Referral ID Status Reason Start Date Expiration Date Visits Requ ested Visits Authorized [id number] Closed 10/23/2020 10/23/2021 1 1 Scheduling Instructions PET/CT completed prior (should be ordere d through [facility] - Dr. Méndez, should be done at 12 weeks post-treatment); Follow-up w ith Dr. Fox ([facility] - ENT) prior to appointment here - please verify patient has been scoped or else we will need COVID testing to scope here. Reason for Visit Outpatient (Routine) - Closed Specialty Diagnoses / Procedures Referred By Contact Refer red To Contact Radiation Oncology Dione Mobley P.A.-C., [facility] [address] [place] [address] Referral ID Status Reason Start Date Expiration Date Visits Requ ested Visits Authorized [id number] Closed 10/23/2020 10/23/2021 1 1 Encounter Details Date Type Department Care Team Description 01/01/2021 Hospital Encounter Department of Serena Berger Neoplasm Radiation Oncology Hardik Barber Of Tongue Base (HCC) in [place], [address] [facility] (Primary Dx) [place], [place] [address] [facility] [address] [place], [place] [phone] (Work) [phone] Social History Tobacco Use Types Packs/Day Years Used Date Smoking Tobacco: Never Assessed Sex Assigned at Date Recorded Not on file documented as of this encounter Last Filed Vital Signs Vital Sign Reading Time Taken Comments Blood Pressure 115/64 01/01/2021 3:26 PM CDT Pulse 71 01/01/2021 3:26 PM CDT Temperature 37.1 ??C (98.8 ??F) 01/01/2021 3:26 PM CDT Respiratory Rate - - Oxygen Saturation - - Inhaled Oxygen Concentration - - Weight 81.5 kg (179 lb 10.8 oz) 01/01/2021 3:26 PM CDT Height - - Body Mass Index 24.74 08/07/2020 9:56 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 0 [id number] ORAL prednisoLONE acetate 0 12/05/2020 (PRED FORTE) 1 [...] documented as of this encounter Progress Notes Serena Berger M.D. - 01/01/2021 3:30 PM CDT RADIATION ONCOLOGY FOLLOW-UP NOTE REQUESTING PROVIDER Established patient DIAGNOSIS 1. 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 His oncologic history is as follows: 1. [...] under the care of Dr. Méndez. 7. December 27, 2020: PET/CT shows significant reduction in the PET SUV in the left oropharynx with previous SUV max of 7.6 and now down to 3.2. Resolution of neck nodes. No other metastatic disease. Increase in left hydrocele. 8. January 01, 2021: Follow-up with Dr. Méndez. Her note is not available yet. 9. January 02, 2021: Pt is scheduled for a return visit with Dr. Fox. INTERVAL HISTORY: Since I last saw Antonio Mancini he reports that he is doing fairly well. He is frustrated with the slow recovery from treatments. He very much would like to eat some meat or a sandwich but this is still difficult for him. He states that he can eat soft foods and swallow his pills with no difficulty. He has no pain with swallowing, but has a dry mouth. He drinks lots of water for this. He has no ear pain. His taste is poor. He notes that over the last two weeks he developed the lymphedema in his neck. He states that Dr. Méndez prescribed steroids for this. OBJECTIVE BP 115/64 (BP Location: Left arm, Patient Position: Sitting, Cuff Size: Small) Pulse 71 Temp 37.1 ??C (Temporal) Wt 81.5 kg BMI 24.74 kg/m?? General: Antonio Mancini is a well-developed, well-nourished man. he is seated in the examination room in no acute distress. ECO HEENT: Mucous membranes are pink and intact. No oral lesions. No palpable masses. Good opening of mouth. Good movement of tongue. He will see Dr. Fox tomorrow for a scope. Lymph: There is no cervical or supraclavicular lymphadenopathy. He does have moderate submental lymphedema. DIAGNOSTICS: I have reviewed the available imaging, operative and pathology reports as described above and reviewed in the EMR. ASSESSMENT / PLAN #1??Stage II, cT2 N2 M0, p16+ left base of tongue squamous cell carcinoma, s/p definitive chemoradiotherapy, September 2020 #2 Submental lymphedema I reviewed the above findings with Mr. Mancini. I think he has had an excellent response to treatment. Obviously, he needs a scope and to look at the area. He sees Dr. Fox tomorrow. If all looks good, then I would recommend another clinical exam in 3 months. I think he has lymphedema. I will refer him to [facility] for an evaluation and treatment. I called and spoke with Dr. Méndez. She is okay if we hold on the Medrol dose pack for now. He has not yet seen the dentist. I encouraged him to make an appointment and to start his fluoride trays regularly. I think his swallowing will continue to improve. He is doing his swallow exercises. I told him as the saliva and taste improves this should help his swallow as well. We will see Antonio Mancini infollow-up visit in 3 months. Antonio Mancini knows to contact us at any point should any questions or concerns arise. EDUCATION Ready to learn, no apparent learning barriers were identified; learning preferences include listening. Explained diagnosis and treatment plan; patient expressed understanding of the content. I personally spent 35 minutes in care of the patient today. Time includes both non face to face and face to face patient care. Signed by: Serena Berger M.D. 01/01/2021 4:05 PM [address]iation Oncology [facility] [address] [place], [place] [id number] documented in this encounter Miscellaneous Notes Addendum Note - Vanessa Samuel - 01/01/2021 3:30 PM CDT Encounter addended by: Vanessa Samuel on: 01/02/2021 7:34 AM Actions taken: Letter saved documented in this encounter Plan of Treatment Upcoming Encounters Date Type Specialty Care Team Description 04/23/2022 Appointment Radiation Oncology Fara Berger M.D. [address] [place], [place] [phone] (Wo rk) Scheduled Referrals Name Type Priority Associated Order Schedule Diagnoses Radiation Oncology Outpatient Referral Routine On ce for 1 office visit Occurrences sta rting (clinic) 01/01/2021 unti l 01/01/2021 Radiation Oncology Outpatient Referral Routine Ex pected: 04/03/2021 office visit (Approximate), (clinic) Expires: 2021 documented as of this encounter Visit Diagnoses Diagnosis Malignant Neoplasm Of Tongue Base (HCC) - Primary documented in this encounter
--- OUTSIDE RECORDS SUMMARY | 2022-03-12 04:17 | XMS_ITS | Encounter Summary ---
:1950 Author Organization [facility] Address [address] [place] [address] Care Team Providers Name Role Phone Unavailable Primary Care Provider Unavailable Encounter Details Date Type Department Care Team Description 09/28/2020 Documentation Department of Radiation Dione Mobley, Oncology in [place], Sebastián., M.S. [place] [place] [phone] (Wo rk) Social History Tobacco Use Types Packs/Day Years Used Date Smoking Tobacco: Never Assessed Sex Assigned at Date Recorded Not on file documented as of this encounter Miscellaneous Notes Radiation Completion Notes - Dione Mobley P.A.-C., M.S. - 09/28/2020 11:59 PM CST DIAGNOSIS: 1. Malignant Neoplasm Of Tongue Base (HCC) Attending Physician: Serena Berger M.D. Treatment Intent: Curative Concomitant Therapy: Chemotherapy Single Plan Treatment Course: 1x L BOT, necks Plan ID Fractions Dose / Fraction (cGy) Dose Treated (cGy) Dose Planned (cGy) First Treatment Last Treatment Elapsed Days F1 H&N_BOT 35 / 35 200 7000 7000 08/13/2020 09/28/2020 46 Course Summary 08/13/2020 09/28/2020 46 Radiation Modality: Photons CLINICAL SUMMARY Mr. Antonio Mancini completed radiation treatment as planned without interruptions. The course of treatment was tolerated well and with anticipated side effects. The patient experienced toxicities of grade 2 dehydration, radiation dermatitis, dysphagia, esophagitis and grade 1 dry mouth, dysgeusia, fatigue, oral pain, pain of skin, salivary duct inflammation, and weight loss during radiation treatment. TREATMENT RESPONSE: Response to treatment will be determined by post-treatment imaging and/or physical examinations. RECOMMENDED FOLLOW UP: Radiation Oncologist and Primary Medical Oncologist. He has follow-up appointments with Dr. Berger and Dr. Méndez on October 23, 2020. Signed by: Dione Mobley P.A.-C., M.S., 10/23/2020 8:17 AM CDT [facility] [address] [place] [address] documented in this encounter Plan of Treatment Upcoming Encounters Date Type Specialty Care Team Description 04/23/2022 Appointment Radiation Oncology Fara Berger M.D. [address] [place], [place] [phone] (Wo rk) documented as of this encounter Visit Diagnoses Diagnosis Malignant Neoplasm Of Tongue Base (HCC) - Primary documented in this encounter
--- OUTSIDE RECORDS SUMMARY | 2022-03-12 04:17 | XMS_ITS | Encounter Summary ---
:1950 Author Organization [facility] Address [address] [place] [address] Care Team Providers Name Role Phone Unavailable Primary Care Provider Unavailable Reason for Referral Outpatient (Routine) - Closed Specialty Diagnoses / Procedures Referred By Contact Refer red To Contact Radiation Oncology Dione Mobley P.A.-C., [facility] M.S. [address] [place] [address] Referral ID Status Reason Start Date Expiration Date Visits Requ ested Visits Authorized [id number] Closed 10/23/2020 10/23/2021 1 1 Scheduling Instructions PET/CT completed prior (should be ordere d through [facility] - Dr. Méndez, should be done at 12 weeks post-treatment); Follow-up w ith Dr. Fox (Carlos Eduardoina - ENT) prior to appointment here - please verify patient has been scoped or else we will need COVID testing to scope here. Outpatient (Routine) - Closed Specialty Diagnoses / Procedures Referred By Contact Refer red To Contact Diagnoses Malignant Neoplasm Of Tongue Base (HCC) Dione Mobley P.A.-C., [facility] on Procedures [place] Swallow Function with Video and Speech or OT M.S. [address] [place] [phone] Referral ID Status Reason Start Date Expiration Date Visits Requ ested Visits Authorized [id number] Closed 10/23/2020 10/23/2021 1 1 Outpatient (Routine) - Closed Specialty Diagnoses / Procedures Referred By Contact Refer red To Contact Radiation Oncology [facility] [address] [address] Referral ID Status Reason Start Date Expiration Date Visits Requ ested Visits Authorized [id number] Closed 09/27/2020 09/27/2021 1 1 Scheduling Instructions Coordinate with Med Onc appointment ([facility] ) Reason for Visit Outpatient (Routine) - Closed Specialty Diagnoses / Procedures Referred By Contact Refer red To Contact Radiation Oncology [facility]A.-C., [facility] [address] [address] Referral ID Status Reason Start Date Expiration Date Visits Requ ested Visits Authorized [id number] Closed 09/27/2020 09/27/2021 1 1 Encounter Details Date Type Department Care Team Description 10/23/2020 Hospital Encounter Department of Serena Berger Neoplasm Radiation Oncology Hardik Barber Of Tongue Base (HCC) in [address] (Primary Dx) [place], [place] [address] [facility] [address] [place], [place] [phone] (Work) [phone] Social History Tobacco Use Types Packs/Day Years Used Date Smoking Tobacco: Never Assessed Sex Assigned at Date Recorded Not on file documented as of this encounter Last Filed Vital Signs Vital Sign Reading Time Taken Comments Blood Pressure 140/76 10/23/2020 10:11 AM CDT Pulse 71 10/23/2020 10:11 AM CDT Temperature 37 ??C (98.6 ??F) 10/23/2020 10:11 AM CDT Respiratory Rate - - Oxygen Saturation - - Inhaled Oxygen Concentration - - Weight 88.4 kg (194 lb 14.2 oz) 10/23/2020 10:11 AM CDT Height - - Body Mass Index 26.83 08/07/2020 9:56 AM DATA ANALYSIS INTERN documented in this encounter Medications at Time [...] tablet OMEGA-3 FATTY Take by mouth. 0 TRFOS-GLJ-LDU ORAL prochlorperazine 10 mg every 8 0 [...] of this encounter Progress Notes Dione Mobley P.A.Christian., M.S. - 10/23/2020 10:30 AM CDT SUBJECTIVE DIAGNOSIS 1. Malignant Neoplasm Of Tongue Base (HCC) SUPERVISED BY: Serena Berger M.D. HISTORY OF PRESENT ILLNESS Mr. Antonio Mancini is a 70-year-old male with p16 left base of tongue cancer.?? His oncologic history is as follows: 1. [...] carcinoma. ??Positive for p16 by IHC. ?? 6. August 13, 2020 through September 28, 2020: Radiation therapy to the tumor and bilateral involvedlymph nodes to a dose of 7000 cGy in 35 fractions with the bilateral neck nodes levels Ia-V receiving 6300 cGy. He received concurrent cisplatin chemotherapy under the care of Dr. Méndez. INTERVAL HISTORY The patient was seen and examined today with Dr. Berger. The patient reports recovering well overall following radiation treatment and chemotherapy. He reports that his biggest issue continues to be thick mouth secretions. He reports needing to clear the secretions in order to drink Scandishakes. He is performing baking soda rinses twice daily. He has used M ucinex occasionally. He drinks water frequently throughout the day. He did lose more weight following radiation treatment, but reports that it has now been stable for the past 1-2 weeks. He is continuing to receive IV fluids daily through the [facility]. He does still have occasional dizziness and lightheadedness if he changes positions too quickly. He does feel that IV fluids help. He reports having 3 Scandishakes per day. He is not eating any soft or solid foods. He has had some broth. He is able to swallow pills. He rates his pain as 4/10 in severity. He is not taking any pain medication or using Magic Mouthwash. He reports that he has a little taste. His skin has healed well and he is now applying his regular moisturizing lotion. He has continued left shoulder stiffnessand decreased range of motion. He has been doing some exercises on his own. He denies jaw or neck range of motion limitations. He is performing jaw and tongue exercises. He denies lymphedema. REVIEW OF SYSTEMS Review of systems was negative except as documented above. PATIENT REPORTED SYMPTOM SCREEN FATIGUE (Scale: 0 = no fatigue; 10 = worst fatigue you can imagine): 5 PAIN (Scale: 0 = no pain; 10 = worst pain you can imagine): 4 OVERALL QUALITY OF LIFE (Scale: 0 = as bad as can be; 10 = as good as can be): 5-6 OBJECTIVE BP 140/76 (BP Location: Right arm, Patient Position: Sitting, Cuff Size: Regular) Pulse 71 Temp 37 ??C Wt 88.4 kg BMI 26.83 kg/m?? PHYSICAL EXAM General: Patient is alert and oriented in no apparent distress. ENT: Mucositis has healed well within the oral cavity. No evidence of thrush. Skin: Hyperpigmentation of the anterior and bilateral neck and upper chest. 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 His biggest concernis thick secretions. We discussed management strategies for this today as well as anticipated improvement in symptoms with further recovery time. He was recommended to perform baking soda rinses prior to meals. He is interested in advancing his diet and we discussed that he will need to increase his caloric intake as he gets weaned off of IV fluids at the discretion of his providers at the [facility]. We reviewed his weight today and the importance of maintaining and gaining weight. We have ordered for a swallow study to be completed 6 weeks post-treatment completion. The patient also has left shoulder decreased range of motion and I have placed a referral to Physical Therapy for evaluationand treatment. He is scheduled for a visit with Dr. Méndez on October 31, 2020. We discussed the patient having a PET/CT scan performed 12 weeks post-treatment completion. We expect this will be ordered by the patient's [facility] providers (Dr. Méndez or Dr. Fox) and I have asked our clinical medical record assistant to obtain the images and report for our review. The patient should also have follow-up visits at that time with Dr. Méndez, Dr. Fox, and Dr. Berger. The patient will likely have nasopharyngoscopy performed by Dr. Fox. I have asked our clinical medical record assistant to obtain the patient's records and if for some reason he does not have scope performed, we can arrange for COVID-19 testing and scope here with Dr. Berger. The patient was told to contact us sooner with questions or concerns. He verbally expressedhis understanding of the plan. EDUCATION Ready to learn, no apparent learning barriers were identified; learning preferences include listening. Explained diagnosis and treatment plan; patient expressed understanding of the content. I personally spent 40 minutes in care of the patient today. Time includes both non face to face and face to face patient care. Signed by: Dione Mobley P.A.-C., M.S. 10/23/2020 1:04 PM CDT [facility] [address] [place] [address] Associated attestation - Serena Berger M.D. - 10/23/2020 4:41 PM CDT I saw and evaluated the patient and participated in the robledo portions of the service. I reviewed the documentation of Ms. Dione Mobley PA-C, and agree with the findings and plan. On exam he appears well. HEENT exam shows normal TMs bilaterally. His oral cavity/oropharynx show a small patch of healing mucositis along his left oral tongue posteriorly. Good tongue mobility. No thrush. His neck shows no adenopathy to palpation. His skin has healed well. He is doing very well recovering from his treatments. He is only 3 weeks out and needs more time to heal. We discussed that this takes time and that hewill continue to slowly improve. He appreciated the encouragement. We will see him back with Oncology and ENT for his 12 week PET/CT. He is an [facility] patient, so I think that they will order those tests locally. Their questions were answered, and they were comfortable with this plan. Serena Berger M.D., 10/23/2020 documented in this encounter Plan of Treatment Upcoming Encounters Date Type Specialty Care Team Description 04/23/2022 Appointment Radiation Oncology Fara Berger M.D. [address] [place], [place] [phone] (Wo rk) Scheduled Orders Name Type Priority Associated Diagnoses Order S chedule [place] Swallow Function Imaging RAD - Routine (most Malignant Neop lasm Expected: with Video and inpatients and all Of Tongue Base (HCC) 11/09/2020 Speech or OT outpatients) (Approximate), Expires: 10/24/2023 Scheduled Referrals Name Type Priority Associated Order Schedule Diagnoses Radiation Oncology Outpatient Referral Routine On ce for 1 office visit Occurrences sta rting (clinic) 10/23/2020 unti l 10/23/2020 Radiation Oncology Outpatient Referral Routine Ex pected: 12/25/2020 office visit (Approximate), (clinic) Expires: 2021 documented as of this encounter Visit Diagnoses Diagnosis Malignant Neoplasm Of Tongue Base (HCC) - Primary documented in this encounter
--- OUTSIDE RECORDS SUMMARY | 2022-03-12 04:17 | XMS_ITS | Clinical Summary ---
:1950 Author Organization [facility] Address [address] [place] [address] Care Team Providers Name Role Phone Elsewhere, Pcp Primary Care Provider Unavailable Source Comments Patient records contain information from all sites at [facility]. For routine questions regarding patient records, call [phone] during business hours, M-F 8:00 AM - 5:00 PM Central Time. Record requests for emergency care only can be directed to [phone] at any time.[facility] Allergies Active Allergy Reactions Severity Noted Date Comments Doxazosin Anxiety 05/14/2011 Medications Medication Sig Dispensed Refills Start Date End Date Status aspirin-calcium carbonate Take by mouth. 0 9 Active 81 mg-300 mg calcium(777 mg) tablet ALPRAZolam (XANAX) 1 mg as needed. 0 06/25/2020 Active tablet OMEGA-3 FATTY Take by mouth. 0 A ctive ARZFT-SJO-HOH ORAL cholecalciferol (VITAMIN Take by mouth. 0 Active D3) 10 mcg/mL (400 Unit/mL) drops ASCORBIC ACID, VITAMIN C, Take by mouth. 0 Active ORAL multivitamin chewable Chew 1 tablet 0 Active tablet daily. acetaminophen (TYLENOL) Take 325 mg by 0 Active 325 mg tablet mouth every 4 (four) hours as needed for pain. LORazepam (ATIVAN) 0.5 mg 0.5 mg. 0 08/15/2020 Active tablet prochlorperazine 10 mg every 8 0 08/08/2020 Active (COMPAZINE) 10 mg tablet (eight) hours as needed for nausea or vomiting. diphenhydramine-lidocaine Apply 15 mL to 480 mL 0 Active -antacid (MAGIC the mouth or MOUTHWASH) 1:1:1 throat 3 (three) times a day before meals. Additional Information Patient not taking. Reported on 10/10/2021 magnesium 200 mg tablet Take 400 mg by mouth 0 Active every morning before breakfast. prednisoLONE acetate (PRED 0 12/05/2020 Active FORTE) 1 % ophthalmic suspension tamsulosin (FLOMAX) 0.4 mg 0 10/07/2021 Active 24 hr capsule aspirin [address] tablet TAKE ONE TABLET BY MOUTH 0 1 Active cephalexin (KEFLEX) 500 mg Take 1 capsule (500 mg 20 capsule 0 10/10/2021 Active capsule total) by mouth 4 (four) times a day. fluoride, sodium, Apply 1 application to 100 mL 11 2 Active (PreviDent 5000 Dry Mouth) the mouth or throat at 1.1 % dental gel bedtime. Dry mouth and or prevention of caries: Apply a thin ribbon to teeth with a toothbrush for at least 1 minute preferably at bedtime: expectorate gel and do not eat, drink, or rinse for 30 minutes. Active Problems Problem Noted Date Malignant Neoplasm Of Tongue Base 08/01/2020 Cancer Staging: Clinical stage from 07/04: Stage II (cT2, cN2, cM0, p16+) - Unsigned Encounters Date Type Specialty Care Team Description 02/04/2022 Clinical Radiation Misty Velazquez Oncology Shakira M 01/17/2022 Ancillary Procedure 01/17/2022 - Hospital Encounter Radiation Serena Berger Malign ant Neoplasm 01/20/2022 Oncology Hardik Barber Of Tongue Base (HCC) (Primary Dx) 01/15/2022 Emergency Emergency Alexander Oneil, Medicine C.N.P. 01/14/2022 External Outreach Community Abdiel Cifuentes Contact With And Internal Medicine J, D.ODarwin (Suspected ) Exposure To COVID-19 (Prima ry Dx) from Last 3 Months Social History Tobacco Use Types Packs/Day Years Used Date Smoking Tobacco: Never Assessed Sex Assigned at Date Recorded Not on file Last Filed Vital Signs Vital Sign Reading Time Taken Comments Blood Pressure 138/75 01/17/2022 11:09 AM CDT Pulse 63 01/17/2022 11:09 AM CDT Temperature 36.7 ??C (98.1 ??F) 01/17/2022 11:09 AM CDT Respiratory Rate 18 01/15/2022 11:51 AM CDT Oxygen Saturation 98% 01/15/2022 11:51 AM CDT Inhaled Oxygen Concentration - - Weight 80.7 kg (177 lb 14.6 oz) 01/17/2022 11:09 AM CDT Height 181.5 cm (5' 11.46) 08/07/2020 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 [address] [place], [place] [phone] (Wo rk) Health Maintenance Due Date Last Done Comments CT Colonography 1950 Cologuard 1950 Colonoscopy 1950 Colorectal Cancer Screening 1950 FIT 1950 Hepatitis C Screening 1950 Depression Screening (Annual 08/03/2021 PHQ-2) Fall Risk Screen (Annual) 08/03/2021 COVID-19 Vaccine (4 - Booster for 08/30/2021 06/07/2021, , Pfizer series) 11/09/2020 Zoster Vaccines (2 of 2) 01/17/2022 11/22/2021, 05/14/2011 Influenza Vaccine (#1) 2022 05/23/2021, 05/23/2021, 05/03/2020, Additional history exists Fasting Glucose for Diabetes 01/22/2024 01/21/2021, 021, Screening 07/13/2020, Additional history exists DTaP,Tdap,and Td Vaccines (3 - Td 12/31/2026 12/31/2016, , or Tdap) 08/03/2004 Pneumococcal vaccine (65+ years) Completed 08/18/2019, 04/2015, 06/07/2013, Additional history exists Procedures Procedure Name Priority Date/Time Associated Comments Diagnosis ONCOLOGY IMAGE EXAM Routine 01/17/2022 11:30 Resu lts for this AM CDT procedure are i n the results section. SARS CORONAVIRUS 2, STAT 01/15/2022 11:56 Resu lts for this PCR RAPID, V AM CDT procedure are i n the results section. from Last 3 Months Results Video-Oral Cavity-Oncology Image Exam (01/17/2022 11:30 AM CDT) Specimen (Source) Anatomical Collection Method Collection Time Re ceived Time Location / / Volume Laterality 01/17/2022 11:30 AM CDT Narrative IIMS - 01/17/2022 12:45 PM CDT This order has been created and auto-finalized to support the import of images acquired without order. The clini saskhi documentation to support these images can be found on the encounter leti t produced images. Provider Not In System IMG NON RAD IMAGING PROCEDUR ES Performing Organization Address City/[facility] Code Phon e Number [facility] NA SARS Coronavirus 2, PCR Rapid, V Asymptomatic (01/15/2022 11:56 AM CDT) [facility] Method Time Signature SARS CoV-2, Undetected Undetected 01/15/2022 CNFL PCR, Rapid, V 12:21 PM CDT Comment: ----ADDITIONAL INFORMATION---- This RT-PCR test was performed using the Kaycee SARS-CoV-2 and Influenza A/B Reagent assay from [employer], which has received Emergency Use Authori zation(EUA) by the U.S. Food and Drug Administration . Fact sheets for this Emergency Use Autho rization (EUA) assay can be found at the following link s: For Healthcare Providers: https://www.fda.gov/media/620718/downloa d For Patients: https://www.fda.gov/media/157701/downloa d SARS Coronavirus 2, Source, Swab, Nasopharynx 01/01 12:00 PM CDT FL Rapid Specimen Anatomical Collection Method Collection Time Receive d Time (Source) Location / / Volume Laterality Varies 01/15/2022 11:56 01/15/2022 (Nasopharynx) AM CDT 12:00 PM CDT Alexander N Oneil C.N.P. LAB MICROBIOLOGY - GENERAL O RDERABLES Performing Organization Address City/[facility] Phon e Number [address] [address] [place] [address] System in [place] [address] from Last 3 Months Insurance Payer Benefit Plan / Subscriber ID Effective Dates Phone Addre ss Type Group AARP AARP MEDICARE [id number] 2020-Present [phone] [address] [address] [place] [address] (Home) [place] [phone] Care Teams Instructional Support Assistant Relationship Specialty Start Date End Date Elsewhere, Pcp PCP - General Internal Medicine 01/15/22
--- OUTSIDE RECORDS SUMMARY | 2022-03-12 04:17 | XMS_ITS | Encounter Summary ---
:1950 Author Organization [facility] Address [address] [place] [address] Care Team Providers Name Role Phone Unavailable Primary Care Provider Unavailable Encounter Details Date Type Department Care Team Description 08/14/2021 Clinical Communication Department of Jannette Stevens Radiation Oncology in [address] [place] [phone] Social History Tobacco Use Types Packs/Day Years Used Date Smoking Tobacco: Never Assessed Sex Assigned at Date Recorded Not on file documented as of this encounter Plan of Treatment Upcoming Encounters Date Type Specialty Care Team Description 04/23/2022 Appointment Radiation Oncology Fara Berger M.D. [address] [place], [place] [phone] (Wo rk) documented as of this encounter Visit Diagnoses Not on filedocumented in this encounter
--- OUTSIDE RECORDS SUMMARY | 2022-03-12 04:17 | XMS_ITS | Encounter Summary ---
:1950 Author Organization [facility] Address [address] [place] [address] Care Team Providers Name Role Phone Unavailable Primary Care Provider Unavailable Encounter Details Date Type Department Care Team Description 04/15/2021 Clinical Communication Department of Magali Dawkins [facility] [place] [phone] [place], [place] [address] (Work) [place] [address] Social History Tobacco Use Types Packs/Day Years Used Date Smoking Tobacco: Never Assessed Sex Assigned at Date Recorded Not on file documented as of this encounter Plan of Treatment Upcoming Encounters Date Type Specialty Care Team Description 04/23/2022 Appointment Radiation Oncology Fara Berger M.D. [address] [place], [place] [phone] (Wo rk) documented as of this encounter Visit Diagnoses Not on filedocumented in this encounter
--- OUTSIDE RECORDS SUMMARY | 2022-03-12 04:17 | XMS_ITS | Encounter Summary ---
:1950 [facility] Address [address] [place] [address] Care Team Providers Name Role Phone Unavailable Primary Care Provider Unavailable Reason for Referral Outpatient (Routine) - Closed Specialty Diagnoses / Procedures Referred By Contact Refer red To Contact Dental Specialties Dione Mobley P.A.-C., Joaquin Edgar D.D.[facility] [address] [facility] [address] [place] [phone] Referral ID Status Reason Start Date Expiration Date Visits Requ ested Visits Authorized [id number] Closed 10/10/2021 10/10/2022 1 1 TECH Outpatient (Routine) - Closed Specialty Diagnoses / Procedures Referred By Contact Refer red To Contact Radiation Oncology Dione Mobley P.A.-C., [facility] [address] [place] [address] Referral ID Status Reason Start Date Expiration Date Visits Requ ested Visits Authorized [id number] Closed 10/10/2021 10/10/2022 1 1 Scheduling Instructions Plan for scope. TSH prior at [facility] TECH Outpatient (Routine) - Closed Specialty Diagnoses / Procedures Referred By Contact Refer red To Contact Radiation Oncology Dione Mobley P.A.-C.[facility] [address] [place] [phone] Referral ID Status Reason Start Date Expiration Date Visits Requ ested Visits Authorized [id number] Closed 07/12/2021 07/12/2022 1 1 Scheduling Instructions PET/CT scan prior at [facility]. Please get any updated records from Dr. Fox (ENT) and Dr. Méndez (Med Onc) as well. Thanks! TECH Reason for Visit Outpatient (Routine) - Closed Specialty Diagnoses / Procedures Referred By Contact Refer red To Contact Radiation Oncology Dione Mobley P.A.-C.[address] [address] Referral ID Status Reason Start Date Expiration Date Visits Requ ested Visits Authorized [id number] Closed 07/12/2021 07/12/2022 1 1 Encounter Details Date Type Department Care Team Description 10/10/2021 Hospital Encounter Department of Serena Berger Neoplasm Radiation Oncology Hardik Barber Of Tongue Base (HCC) in [address] (Primary Dx) [place], [place] [address] [facility] [address] [place], [place] [phone] (Work) [phone] Social History Tobacco Use Types Packs/Day Years Used Date Smoking Tobacco: Never Assessed Sex Assigned at Date Recorded Not on file documented as of this encounter Last Filed Vital Signs Vital Sign Reading Time Taken Comments Blood Pressure 140/71 10/10/2021 9:18 AM EKG TECH Pulse 62 10/10/2021 9:18 AM EKG TECH Temperature 36.6 ??C (97.8 ??F) 10/10/2021 9:18 AM EKG TECH Respiratory Rate - - Oxygen Saturation - - Inhaled Oxygen Concentration - - Weight 79.9 kg (176 lb 2.4 oz) 10/10/2021 9:18 AM EKG TECH Height - - Body Mass Index 24.25 08/07/2020 9:56 AM EKG TECH documented in this encounter Medications at Time of Discharge Medication Sig Dispensed Refills Start Date End Date acetaminophen (TYLENOL) 325 Take 325 mg by 0 mg tablet mouth every 4 (four) hours as needed for pain. ALPRAZolam (XANAX) 1 mg as needed. 0 06/25/2020 tablet ASCORBIC ACID, VITAMIN C, Take by mouth. [address] ORAL aspirin [address] tablet TAKE ONE TABLET BY 0 05/03 MOUTH aspirin-calcium carbonate 81 Take by mouth. 0 01/2009 mg-300 mg calcium(777 mg) tablet cholecalciferol (VITAMIN D3) Take by mouth. 0 10 mcg/mL (400 Unit/mL) drops magnesium 200 mg tablet Take 400 mg by 0 mouth every morning before breakfast. multivitamin chewable tablet Chew 1 tablet 0 daily. OMEGA-3 FATTY [id number] Take by mouth. 0 ORAL prednisoLONE acetate (PRED 0 1 FORTE) 1 % ophthalmic suspension tamsulosin (FLOMAX) 0.4 mg 0 2 24 hr capsule cephalexin (KEFLEX) 500 mg Take 1 capsule 20 capsule 0 10/10 capsule (500 mg total) by mouth 4 (four) times a day. djmzwdlckltfsoq-ganeouojh-ar Apply 15 mL to the 480 mL 0 09/27/2020 tacid (MAGIC MOUTHWASH) mouth or throat 3 1:1:1 (three) times a day before meals. LORazepam (ATIVAN) 0.5 mg 0.5 mg. 0 08/15/2020 tablet prochlorperazine (COMPAZINE) 10 mg every 8 0 01/2021 10 mg tablet (eight) hours as needed for nausea or vomiting. documented as of this encounter Progress Notes Dione Mobley P.A.-C., M.S. - 10/10/2021 9:30 AM CST SUBJECTIVE DIAGNOSIS 1. Malignant Neoplasm Of [...] ??No evidence of recurrent lesion or adenopathy. 9. July 08, 2021: CT scan of the neck soft tissue demonstrated no findings to suggest tumor progression or metastatic disease. Post treatment related changes throughout the neck soft tissues. TSH 2.6. 10. October 03, 2021: PET-CT scan demonstrated post-treatment changes within the head and neck soft tissues with no abnormal or hypermetabolic uptake suspicious for local recurrence. No suspicious upper cervical lymph nodes. No distant sites of tracer avid metastatic disease. INTERVAL HISTORY The patient was seen and examined today with Dr. Berger. The patient reports doing well overall. He rates his fatigue as 3/10 in severity. He reports improved eating. He estimates his taste at 60%. He does have issues with mouth dryness every once in a whileand with certain foods, such as steak. He is able to manage this with drinking extra water. He reports mild mouth discomfort, rated 2/10 in severity. He is not taking pain medication. He denies any specific sores or lesions. He does have dental concerns stating that a crown broke off and he has had chips of other teeth. He has not been using fluoride for the past month. He did see a dentist at [facility]. He reports good arm and neck range of motion and he has continued to perform exercises as directed by physical therapy. He continues to have submental lymphedema that he reports is worse in the morning and is manageable with massage. He also reports redness of his left ankle that he relates to wearing tight boots for his work at [employer]. The redness developed shortly after starting work this winter and has gotten worse over time, but he reports that it is not spreading. He has been applying an antibiotic ointment. He denies fever or chills. REVIEW OF SYSTEMS Review of systems was negative except as documented above. PATIENT REPORTED SYMPTOM SCREEN FATIGUE (Scale: 0 = no fatigue; 10 = worst fatigue you can imagine): 3 PAIN (Scale: 0 = no pain; 10 = worst pain you can imagine): 2 OVERALL QUALITY OF LIFE (Scale: 0 = as bad as can be; 10 = as good as can be): 7 OBJECTIVE BP 140/71 (BP Location: Left arm, Patient Position: Sitting, Cuff Size: Large) Pulse 62 Temp 36.6 ??C (Temporal) Wt 79.9 kg BMI 24.25 kg/m?? PHYSICAL EXAM General: Patient is alert and oriented in no apparent distress. ENT: Multiple teeth with fillings. Cracked right lower molar where there was previously a crown. Neck: Visible submental lymphedema. Skin: Brisk erythema and warmth to the touch of the skin of the left lower extremity around the ankle. 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 We reviewed his PET-CT scan today which showed no evidence of recurrence or metastatic disease. He is eating and drinking well. He is managing the submental lymphedema well with massage and continuing to perform range of motion exercises with benefit. He is concerned about his dental health and would like to see a dentist in [place] again for further evaluation and discussion of restorative treatment options. He previously saw Dr. Edgar, so I will place a referral for a follow-up visit with her. He has redness and warmth of his left lower extremity that is concerning for cellulitis. I prescribed Keflex 500 mg four times daily x 5 days. He will schedule follow-up with Dr. Crain or another primary provider at [facility] on Thursday or Thursday next week for re-evaluation. We discussed that the duration of antibiotic therapy might need to be extended, depending on his response to the treatment. Mr. Mancini is scheduled for follow-up with Dr. Méndez on October 15. He is not currently scheduled for follow-up with Dr. Fox in ENT. We will schedule a return visit here in 3 months with planned nasopharyngoscopy at that time. I have also ordered for thyroid lab work to be completed prior to that [facility]. The patient was asked to contact us sooner with questions or concerns. He verbally expressed his understanding of the plan. EDUCATION Ready to learn, no apparent learning barriers were identified; learning preferences include listening. Explained diagnosis and treatment plan; patient expressed understanding of the content. I personally spent 30 minutes in care of the patient today. Time includes both non face to face and face to face patient care. Signed by: Dione Mobley P.A.-C., M.S. 10/10/2021 10:51 AM EKG TECH [facility] [address] [place], [place] [id number] TECH Associated attestation - Serena Berger M.D. - 10/10/2021 8:46 PM EKG TECH I saw and evaluated the patient and participated in the robledo portions of the service. I reviewed the documentation of Ms. Dione Mobley PA-C, MS and agree with the findings and plan. Serena Berger M.D., 10/10/2021 documented in this encounter Miscellaneous Notes Addendum Note - Kita Jha C.NAbiodun - 10/10/2021 9:30 AM EKG TECH Encounter addended by: Kita Jha C.N.A. on: 10/11/2021 6:59 AM Actions taken: Letter saved TECH Addendum Note - Kita Jha C.N.A. - 10/10/2021 9:30 AM EKG TECH Encounter addended by: Kita Jha C.NAbiodun on: 10/11/2021 11:51 AM Actions taken: Letter saved TECH documented in this encounter Plan of Treatment Upcoming Encounters Date Type Specialty Care Team Description 04/23/2022 Appointment Radiation Oncology Fara Berger M.D. [address] [place], [place] [phone] (Wo rk) Scheduled Referrals Name Type Priority Associated Order Schedule Diagnoses Radiation Oncology Outpatient Referral Routine On ce for 1 office visit Occurrences sta rting (clinic) 10/10/2021 unti l 10/10/2021 Radiation Oncology Outpatient Referral Routine Ex pected: 01/10/2022 office visit (Approximate), (clinic) Expires: 2022 Return to provider Outpatient Referral Routine Ex pected: 10/10/2021 in another (Approximate), specialty Expires: 2022 documented as of this encounter Visit Diagnoses Diagnosis Malignant Neoplasm Of Tongue Base (HCC) - Primary documented in this encounter
--- OUTSIDE RECORDS SUMMARY | 2022-03-12 04:17 | XMS_ITS | Encounter Summary ---
:1950 Author Organization [facility] Address [address] [place] [address] Care Team Providers Name Role Phone Unavailable Primary Care Provider Unavailable Encounter Details Date Type Department Care Team Description 12/10/2020 Clinical Communication Department of Serena Berger Radiation Oncology willie Barber M.D. [facility] [address] [facility] [address] [place] [phone] [phone] Social History Tobacco Use Types Packs/Day Years Used Date Smoking Tobacco: Never Assessed Sex Assigned at Date Recorded Not on file documented as of this encounter Plan of Treatment Upcoming Encounters Date Type Specialty Care Team Description 04/23/2022 Appointment Radiation Oncology Fara Berger M.D. [address] [place], [place] [phone] (Wo rk) documented as of this encounter Visit Diagnoses Not on filedocumented in this encounter
--- OUTSIDE RECORDS SUMMARY | 2022-03-12 04:17 | XMS_ITS | Encounter Summary ---
:1950 Author Organization [facility] Address [address] [place] [address] Care Team Providers Name Role Phone Unavailable Primary Care Provider Unavailable Encounter Details Date Type Department Care Team Description 10/17/2021 Clinical Communication Department of Dental Seema Edgar, Specialties in D.D.S. [place], [place] [address] [facility] [address] [place] [phone] [phone] Social History Tobacco Use Types Packs/Day Years Used Date Smoking Tobacco: Never Assessed Sex Assigned at Date Recorded Not on file documented as of this encounter Miscellaneous Notes Telephone Encounter - Seema Edgar D.D.S. - 10/17/2021 4:19 PM CDT Perry Parham and Dr. Berger, Thank you for referring Mr. Mancini back for new consultation. Unfortunately he has had progression of dental caries and deterioration of his dentition from his last consultation in August 2020. He has been seen by a local dental provider and I'm hopeful that he will be able to initiate restorative care to help preserve his dentition. With our examination, I do recommend he have extractions of teeth # 16 (maxillary left 3rd molar) and #31 (mandibular right 2nd molar) which both have caries and are non-restorable/have poor long-term prognoses. I did provide a referral to our S colleagues for extractions of these teeth but wanted to alert you in case you had other recommendations or thoughts given his radiation therapy history. Let me know if you have any other questions, thank you again for the coordination in Mr. Mancini's care. documented in this encounter Plan of Treatment Upcoming Encounters Date Type Specialty Care Team Description 04/23/2022 Appointment Radiation Oncology Fara Berger M.D. 200 [place], [place] [phone] (Wo rk) documented as of this encounter Visit Diagnoses Not on filedocumented in this encounter
--- OUTSIDE RECORDS SUMMARY | 2022-03-12 04:17 | XMS_ITS | Encounter Summary ---
:1950 Author Organization [facility] Address [address] [place] [address] Care Team Providers Name Role Phone Unavailable Primary Care Provider Unavailable Reason for Referral Outpatient (Routine) - Closed Specialty Diagnoses / Procedures Referred By Contact Refer red To Contact Radiation Oncology Dione Mobley P.A.-C., MARCELLO Nuñez [facility] M.S. 200 [place] [address] Referral ID Status Reason Start Date Expiration Date Visits Requ ested Visits Authorized [id number] Closed 04/12/2021 04/12/2022 [address] neck a few days prior at [facility]. Coordin ate with Dr. Méndez appointment also. MRI/CAT/PET Scan (Routine) - Pending Review Specialty Diagnoses / Procedures Referred By Contact Refer red To Contact Radiology Diagnoses Malignant Neoplasm Of Tongue Base (HCC) Dione Mobley P.A.-C., MARCELLO PEÑA Reg ion Procedures CT Neck Soft Tissue with IV Contrast M.S. 200 [place] [address] Referral ID Status Reason Start Date Expiration Date Visits V isits Requested Authorized [id number] Pending 04/12/2021 04/12/2022 1 1 Review Outpatient (Routine) - Closed Specialty Diagnoses / Procedures Referred By Contact Refer red To Contact Radiation Oncology Serena Berger [facility] [address] [place] [address] Referral ID Status Reason Start Date Expiration Date Visits Requ ested Visits Authorized [id number] Closed 01/01/2021 01/01/2022 1 1 Scheduling Instructions Coordinate with Dr. Méndez at [facility] and Dr Darwin Fox (ENT) Reason for Visit Outpatient (Routine) - Closed Specialty Diagnoses / Procedures Referred By Contact Refer red To Contact Radiation Oncology Serena Berger [facility] M.D. [address] [place] [address] Referral ID Status Reason Start Date Expiration Date Visits Requ ested Visits Authorized [id number] Closed 01/01/2021 01/01/2022 1 1 Encounter Details Date Type Department Care Team Description 04/12/2021 Hospital Encounter Department of Serena Berger Neoplasm Of Tongue Base (HCC) (Primary Dx); Radiation Oncology Hardik Barber Nicotine Dependence in [place], [address] [place], [place] [address] [facility] [address] [place], [place] [phone] (Work) [phone] Social History Tobacco Use Types Packs/Day Years Used Date Smoking Tobacco: Never Assessed Sex Assigned at Date Recorded Not on file documented as of this encounter Last Filed Vital Signs Vital Sign Reading Time Taken Comments Blood Pressure 135/80 04/12/2021 3:05 PM CDT Pulse 72 04/12/2021 3:05 PM CDT Temperature 36.7 ??C (98 ??F) 04/12/2021 3:05 PM CDT Respiratory Rate - - Oxygen Saturation - - Inhaled Oxygen Concentration - - Weight 77.5 kg (170 lb 13.7 oz) 04/12/2021 3:05 PM CDT Height - - Body Mass Index 23.53 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 multivitamin chewable Chew 1 tablet daily. 0 tablet OMEGA-3 FATTY Take by mouth. 0 [id number]-WUO-EKK ORAL aspirin [address] tablet TAKE ONE TABLET BY 0 05/03 MOUTH diphenhydramine-lidocaine Apply 15 mL to the 480 mL 0 -antacid (MAGIC mouth or throat 3 MOUTHWASH) 1:1:1 (three) times a day before meals. LORazepam (ATIVAN) 0.5 mg 0.5 mg. 0 08/15/2020 tablet prednisoLONE acetate 0 12/05/2020 (PRED FORTE) 1 [...] documented as of this encounter Progress Notes Dinoe Mobley P.A.-C., M.S. - 04/12/2021 3:00 PM CDT SUBJECTIVE DIAGNOSIS 1. Malignant Neoplasm Of Tongue Base (HCC) 2. Nicotine Dependence SUPERVISED BY: Serena Berger M.D. HISTORY OF PRESENT ILLNESS Antonio Mancini is a 70-year-old male with stage II (cT2, cN2, cM0, p16+) invasive non-keratinizing moderately differentiated squamous cell carcinoma of the left base of tongue who recently completedchemoradiotherapy and returns for a focused follow-up visit.?? His oncologic history is as follows: 1. [...] metastatic disease. Increase in left hydrocele. 8. March 29, 2021: CT neck soft tissue demonstrated a stable exam. Stable post- treatment changes. No evidence of recurrent lesion or adenopathy. INTERVAL HISTORY The patient was seen and examined today with Dr. Berger. The patient reports doing better overall. He is continuing to improve following radiation treatment.He reports that he is now eating solid foods for the past couple of weeks. He does have to chew carefully, but then denies pain or difficulty with swallowing. He has an occasional sore throat that is noticeable, but does not require any pain medications. He reports mouth and throat dryness that comes and goes. He has continued submental lymphedema that has improved with therapy. He has used a wrap aswell as massage to the area with benefit. He has follow-up again with therapy next week. He estimates his taste at 20%. He reports that his left arm strength also improved with therapy. He denies any new lumps bumps or lesions. He has not yet seen his dentist but reports that it is his next step. REVIEW OF SYSTEMS Review of systems was negative except as documented above. PATIENT REPORTED SYMPTOM SCREEN PAIN (Scale: 0 = no pain; 10 = worst pain you can imagine): 0 OBJECTIVE BP 135/80 (BP Location: Left arm, Patient Position: Sitting, Cuff Size: Regular) Pulse 72 Temp 36.7 ??C (Temporal) Wt 77.5 kg BMI 23.53 kg/m?? PHYSICAL EXAM General: Patient is alert and oriented in no apparent distress. Neck: Visible submental lymphedema. 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 His recent CT scan of the neckshowed no evidence of recurrent lesion. He has been able to resume eating regular foods again. We discussed that his taste should hopefully continue to improve over the coming months. He will continue to follow up with therapy for lymphedema. He was encouraged to schedule an appointment with his dentist. His last scope examination was performed by Dr. Fox in January and he reports that he does not have any follow-up scheduled at this time. I have asked our clinical internet marketing assistant to help the patient schedule his next appointment. Dr. Méndez saw the patient last week and recommended follow-up in 3 months.We discussed obtaining a CT scan of the neck in 3 months and then a PET/CT scan at one year post-treatment completion. I will order for the CT scan to be done at [facility]. We will schedule areturn visit here a few days later to review the results. He was asked contact us sooner with questions or concerns. [...] care. Signed by: Dione Mobley P.A.-C., M.S. 04/12/2021 3:50 PM CDT [facility] [place] [address] Associated attestation - Serena Berger M.D. - 04/12/2021 4:37 PM CDT I saw and evaluated the patient and participated in the robledo portions of the service. I reviewed the documentation of . Dione Mobley PA-C, and agree with the findings and plan. On exam he appears well. HEENT exam shows normal TMs bilaterally. His oral cavity/oropharynx appears normal. His neck showsno adenopathy to palpation. He has some submental lymphedema. We will get him back to Dr. Fox. He is doing very well recovering from his treatments. I would recommend another CT neck in 3 months and then his PET/CT in 6 months which will be his 1 year post-treatment study. His questions were answered; he was comfortable with this plan. Serena Berger M.D., 04/12/2021 documented in this encounter Miscellaneous Notes Addendum Note - Frances Schilling - 04/12/2021 3:00 PM CDT Encounter addended by: Frances Schilling on: 04/15/2021 12:13 PM Actions taken: Letter saved documented in this encounter Plan of Treatment Upcoming Encounters Date Type Specialty Care Team Description 04/23/2022 Appointment Radiation Oncology Fara Berger M.D. [address] [place], [place] [phone] (Wo rk) Scheduled Orders Name Type Priority Associated Diagnoses Order S chedule CT Neck Soft Tissue Imaging RAD - Routine (most Malignant Neop lasm Expected: with IV Contrast inpatients and all Of Tongue Base (HC C) 07/08/2021 outpatients) (Approximate), Expires: 04/12/2024 Scheduled Referrals Name Type Priority Associated Order Schedule Diagnoses Radiation Oncology Outpatient Referral Routine On ce for 1 office visit Occurrences sta rting (clinic) 04/12/2021 unti l 04/12/2021 Radiation Oncology Outpatient Referral Routine Ex pected: 07/12/2021 office visit (Approximate), (clinic) Expires: 2021 documented as of this encounter Visit Diagnoses Diagnosis Malignant Neoplasm Of Tongue Base (HCC) - Primary Nicotine Dependence documented in this encounter
--- OUTSIDE RECORDS SUMMARY | 2022-03-12 04:17 | XMS_ITS | Encounter Summary ---
:1950 Author Organization [facility] Address [address] [place] [address] Care Team Providers Name Role Phone Unavailable Primary Care Provider Unavailable Reason for Referral Outpatient (Routine) - Closed Specialty Diagnoses / Procedures Referred By Contact Refer red To Contact Radiation Oncology Dione Mobley P.A.-C., [facility] [address] [place] [phone] Referral ID Status Reason Start Date Expiration Date Visits Requ ested Visits Authorized [id number] Closed 09/27/2020 09/27/2021 1 1 Scheduling Instructions Coordinate with Med Onc appointment ([facility] ) WAY ENGINEERING TECHNICIAN Radiation Therapy (Routine) - Canceled Specialty Diagnoses / Procedures Referred By Contact Refer red To Contact Diagnoses Malignant Neoplasm Of Tongue Base (HCC) Serena Berger M.D. [facility] Procedures Management Visit [address] [place] [phone] Referral ID Status Reason Start Date Expiration Date Visits V isits Requested Authorized [id number] Canceled 08/01/2020 08/01/[address] TECHNICIAN Reason for Visit Radiation Therapy (Routine) - Canceled Specialty Diagnoses / Procedures Referred By Contact Refer red To Contact Diagnoses Malignant Neoplasm Of Tongue Base (HCC) Serena Berger M.D. [facility] Procedures Management Visit [address] [place] [phone] Referral ID Status Reason Start Date Expiration Date Visits V isits Requested Authorized [id number] Canceled 08/01/2020 08/01/2021 1 1 Encounter Details Date Type Department Care Team Description 09/27/2020 Hospital Encounter Department Serena Leal Neoplasm Radiation Oncology Hardik Barber Of Tongue Base (HCC) in [address] [facility] [address] [place], [place] [phone] (Work) [phone] Social History Tobacco Use Types Packs/Day Years Used Date Smoking Tobacco: Never Assessed Sex Assigned at Date Recorded Not on file documented as of this encounter Last Filed Vital Signs Vital Sign Reading Time Taken Comments Blood Pressure 129/80 09/27/2020 10:[address] ENGINEERING TECHNICIAN Pulse 69 09/27/2020 10:[address] ENGINEERING TECHNICIAN Temperature 36.6 ??C (97.9 ??F) 09/27/2020 10:[address] ENGINEERING TECHNICIAN Respiratory Rate - - Oxygen Saturation - - Inhaled Oxygen Concentration - - Weight 93.1 kg (205 lb 4 oz) 09/27/2020 10:[address] ENGINEERING TECHNICIAN Height - - Body Mass Index 28.26 08/07/2020 9:[address] ENGINEERING TECHNICIAN documented in this encounter Medications at Time [...] tablet OMEGA-3 FATTY Take by mouth. 0 [id number] ORAL prochlorperazine 10 mg every 8 0 [...] Progress Notes Dione Mobley P.A.-C., M.S. - 09/27/2020 10:15 AM CST SUBJECTIVE REASON FOR VISIT Evaluation for side effects while receiving radiation treatment for 1. Malignant Neoplasm Of Tongue Base (HCC) SUPERVISED BY: Serena Berger M.D. HISTORY OF PRESENT ILLNESS Mr. Antonio Mancini is a 70-year-old male with p16 left base of tongue cancer.?He is now undergoing definitive radiotherapy. ??He is scheduled for 3 doses of concurrent cisplatin under the care of Dr. Méndez. ??Chemotherapy was delayed until August 21, 2020 due to potential COVID exposure and needing repeat COVID testing.?? Treatment Course: 1x L BOT, necks Plan ID Fractions Dose / Fraction (cGy) Dose Treated (cGy) Dose Planned (cGy) First Treatment Last Treatment Elapsed Days F1 H&N_BOT 34 / 35 200 6800 7000 08/13/2020 09/27/2020 45 Course Summary 08/13/2020 09/27/2020 45 His oncologic history was reviewed with the patient and his daughter and is as follows: 1. July 03, 2020: The patient presented to Dr. Fuller with a chief complaint of a headache for thepast week. The pain was located behind his left ear with occasional radiation down his neck. Physical examination demonstrated a walnut sized mass that was fairly firm and mildly to moderately tender at the angle of the jaw on the left. 2. July 11, 2020: CT scan of the neck demonstrated bilateral cervical adenopathy. The largest lymph node was on the left measuring 3.6 cm, level IIB. Other abnormal lymph nodes were present more inferiorly measuring up to 1.2 cm. Upper limits of normal level IV lymph nodes were also present on the left. On the right, multiple abnormal lymph nodes were present within level IIB, measuring up to 1.5 cm. Enlarged level IIA lymph node was present on the right measuring 1.7 cm. Additional partially necrotic lymph node was present more inferiorly, level IIA, measuring 1.4 cm. Numerous additional level IIB lymph nodes were present more inferiorly measuring up to 1.3 cm. Larynx and pharynx appeared normal. Normal salivary glands. Thyroid normal. 3. July 20, 2020: ENT consultation with Dr. Charly Fox where physical examination demonstrated slight firm granular tissue prominence along the left base of the tongue. Fiberoptic laryngoscopy confirmed an irregular granular tissue proliferation along the left base of the tongue that extended to midline. This did not extend down into the depth of the vallecular or onto the laryngeal surface ofthe epiglottis. This did not extend to the lateral pharyngeal wall. There was a large firm mass palpable over the left upper neck situated along level IIA and IIB extending deep to the sternocleidomastoid muscle. The mass was not densely fixed, but not fully mobile. 4. July 26, 2020: PET-CT scan demonstrated intensely FDG avid mass in the left oropharynx at thebase of the tongue extending inferiorly and anteriorly within the larynx with SUV max 7.6. Moderate uptake along the anterior aspect of the tongue of uncertain significance. Intensely hypermetabolic bilateral cervical lymphadenopathy suspicious for metastatic disease, greater on the left. The largest left cervical lymph node measured approximately 3.0 x 1.7 cm with SUV max 11.3. No other evidence of FDG avid metastatic disease or lymphadenopathy elsewhere in the body. 3 mm noncalcified pulmonary nodule along the right major fissure without FDG uptake. 5. July 30, 2020: Panendoscopy with biopsy of left base of tongue mass was performed by Dr. Fox. On palpation, there was a somewhat firm, irregular mass along the left lateral base of the tongue region. This did not extend onto the tonsillar fossa. The mass extended medially somewhat, but not palpable to the midline. The mass extended inferiorly into the base of the vallecula with palpation of the hyoid bone just inferior to the mass, but did not track onto the lingual surface of the epiglottis. The lesion measured approximately 2.5 cm. The lesion did not appear to be deeply invasive into thedeep tongue musculature palpably. The tonsillar fossa was palpably normal. Pathology of the left base of tongue lesion demonstrated invasive non-keratinizing moderately differentiated squamous cell carcinoma. Positive for p16 by IHC. 6. August 13, 2020 anticipated through September 28, 2020: Radiation therapy to the tumor and bilateral involved lymph nodes to a dose of 7000 cGy in 35 fractions with the bilateral neck nodes levels Ia-V receiving 6300 cGy. He received concurrent cisplatin chemotherapy under the care of Dr. Méndez. The patient was seen and examined today with Dr. Berger. The patient reports doing about the same overall. He rates his fatigue as 5-6/10 in severity. He reports doing better with nutritional intake of two ScandiShakes per day. He has also been drinking three bottles of water per day. His weight has increased since last week. He has also been receiving daily IV fluids at the [facility]. He reports that his creatinine as improved thisweek. He is using Magic Mouthwash prior to ScandiShake which helps with the thick secretions. He is also continuing with baking soda rinses and using a humidifier. He rates his pain as 5/10 in severity, but is not needing to take any pain medication. He is applying Aquaphor twice daily and performing dilute vinegar soaks for skin care. He is not using the dressing changes currently. He is having a small bowel movement approximately every 3 days. He is passing gas. He denies abdominal pain. He takes MiraLAX. He denies any other new symptoms or concerns today. PATIENT REPORTED SYMPTOM SCREEN FATIGUE (Scale: 0 = no fatigue; 10 = worst fatigue you can imagine): 5-6 PAIN (Scale: 0 = no pain; 10 = worst pain you can imagine): 5 OVERALL QUALITY OF LIFE (Scale: 0 = as bad as can be; 10 = as good as can be): 5-6 OBJECTIVE BP 129/80 (BP Location: Right arm, Patient Position: Sitting, Cuff Size: Small) Pulse 69 Temp 36.6 ??C (Temporal) Wt 93.1 kg BMI 28.26 kg/m?? WEIGHT August 17, 2020:?101 kg August 29, 2020: ??99.5 kg September 05, 2020: ??96.4 kg September 13, 2020:?96 kg September 19, 2020: 91.6 kg September 21, 2020: 92.0 kg September 27, 2020: 93.1 kg PHYSICAL EXAM General: Alert and oriented in no apparent distress. ENT: No evidence of thrush. Mucositis and erythema of the posterior oral cavity. Skin: Brisk erythema of the entire anterior and bilateral neck and upper chest with desquamation. 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 He was educated on the anticipated time frame of side effects following radiation treatment. He was encouraged to continue with good nutritional intake to maintain or gain weight. [facility] at this [facility]. He is receiving daily IV fluids under the care of his providers at the [facility]. I will send in a prescription refill for Magic Mouthwash today. He has Tylenol available if needed for pain. He was asked to contact us if he experiences worsening pain. We reviewed skin care including dressing changes and he has supplies available. He reports being scheduled for another full dose of chemotherapy next week on Thursday. We will schedule a return visit here in 4-6 weeks, coordinating follow-up with Medical Oncology. The patient was asked to contact us sooner with questions, concerns, or new or worsening symptoms. He verbally expressed his understanding of the plan. Signed by: Dione Mobley P.A.-C., M.S. 09/27/2020 11:[address] ENGINEERING TECHNICIAN WAY ENGINEERING TECHNICIAN Associated attestation - Serena Berger M.D. - 09/27/2020 5:[address] ENGINEERING TECHNICIAN I saw and evaluated the patient and participated in the robledo portions of the service. I reviewed the documentation of Ms. Dione Mobley PA-C, MS and agree with the findings and plan. The patient appears well on exam. We will continue with radiation as planned and he will complete tomorrow. I congratulatedhim on this accomplishment. We will see him again in 4-6 weeks. He knows to call us if he has difficulty with his recovery. We discussed what to expect. Their questions were answered, and they were comfortable with this plan. Serena Berger M.D., 09/27/2020 documented in this encounter Plan of Treatment Upcoming Encounters Date Type Specialty Care Team Description 04/23/2022 Appointment Radiation Oncology Fara Berger M.D. [address] [place] [address] [phone] (Wo rk) Scheduled Orders Name Type Priority Associated Diagnoses Order S chedule Management Visit Radiation Oncology Routine Malignant Neoplasm Once for 1 Of Tongue Base (HCC) Occurre nces starting 09/27/2020 unti l 09/27/2020 Scheduled Referrals Name Type Priority Associated Diagnoses Order S chedule Radiation Oncology Outpatient Referral Routine Ex pected: office visit 10/29/2020 (clinic) (Approximate), Expires: 09/27/2021 documented as of this encounter Visit Diagnoses Diagnosis Malignant Neoplasm Of Tongue Base (HCC) documented in this encounter
--- OUTSIDE RECORDS SUMMARY | 2022-03-12 04:17 | XMS_ITS | Encounter Summary ---
:1950 Author Organization [facility] Address [address] [place] [address] Care Team Providers Name Role Phone Unavailable Primary Care Provider Unavailable Reason for Referral Specialty Diagnoses / Procedures Referred By Contact Refer red To Contact Seema Souza M.D. [facility] Region [address] [place] [phone] Referral ID Status Reason Start Date Expiration Date Visits Requ ested Visits Authorized Encounter Details Date Type Department Care Team Description 04/12/2021 Orders Only [facility] MNT Sa elsa Souza M.D. [address] [place] [address] [phone] (Wo nate) Social History Tobacco Use Types Packs/Day Years Used Date Smoking Tobacco: Never Assessed Sex Assigned at Date Recorded Not on file documented as of this encounter Plan of Treatment Upcoming Encounters Date Type Specialty Care Team Description 04/23/2022 Appointment Radiation Oncology Fara Berger M.D. [address] [place] [address] [phone] (Wo rk) Scheduled Referrals Name Type Priority Associated Order Schedule Diagnoses Covid immunization Outpatient Referral Routine Ex pected: office visit Booster 021 (Approximate), Expires: 04/12/2022 documented as of this encounter Visit Diagnoses Not on filedocumented in this encounter
--- OUTSIDE RECORDS SUMMARY | 2022-03-12 04:18 | XMS_ITS | Encounter Summary ---
:1950 Author Organization [facility] Address [address] [place] [address] Care Team Providers Name Role Phone Unavailable Primary Care Provider Unavailable Reason for Visit Radiation Therapy (Routine) - Closed Specialty Diagnoses / Procedures Referred By Contact Refer red To Contact Diagnoses Malignant Neoplasm Of Tongue Base (HCC) Serena Berger M.D. [facility] Procedures Prior Auth Rad Tx RI IMRT COMPLEX [address] [place], [place] [phone] Referral ID Status Reason Start Date Expiration Date Visits Requ ested Visits Authorized [id number] Closed 08/13/2020 11/11/2020 35 35 Encounter Details Date Type Department Care Team Description 09/05/2020 Hospital Encounter Department of Radiation Chetna Berger I., [place] [address] [place] [phone] Social History Tobacco Use Types Packs/Day Years [...] tablet OMEGA-3 FATTY Take by mouth. 0 [id number] ORAL prochlorperazine 10 mg every 8 0 [...] Radiation Oncology Fara Berger M.D. [address] [place] [address] [phone] (Wo rk) documented as of this encounter Visit Diagnoses Not on filedocumented in this encounter
--- OUTSIDE RECORDS SUMMARY | 2022-03-12 04:18 | XMS_ITS | Encounter Summary ---
:1950 Author Organization [facility] Address [address] [place] [address] Care Team Providers Name Role Phone Unavailable Primary Care Provider Unavailable Reason for Referral Outpatient (Routine) - Canceled Specialty Diagnoses / Procedures Referred By Contact Refer red To Contact Nutrition Diagnoses Malignant Neoplasm Of Tongue Base (HCC) Serena Berger M.D. [facility] Region [address] [place] [address] [phone] Referral ID Status Reason Start Date Expiration Date Visits V isits Requested Authorized [id number] Canceled 08/01/2020 08/01/2021 1 1 AND BURR OPERATOR Reason for Visit Outpatient (Routine) - Canceled Specialty Diagnoses / Procedures Referred By Contact Refer ruba To Contact Nutrition Diagnoses Malignant Neoplasm Of Tongue Base (HCC) Serena Berger M.D. [facility] Region [address] [place] [address] [phone] Referral ID Status Reason Start Date Expiration Date Visits V isits Requested Authorized [id number] Canceled 08/01/2020 08/01/2021 1 1 Encounter Details Date Type Department Care Team Description 09/06/2020 Hospital Encounter Department of Fara Breger M.D. [address] [place] [phone] Malignant Neoplasm Radiation Oncology Nalini Bravo, RDN [address] [place] [address] Of Tongue Base (HCC) in [place], [place] [address] [place] [address] Social History Tobacco Use Types [...] tablet OMEGA-3 FATTY Take by mouth. 0 [id number] ORAL prochlorperazine 10 mg every 8 0 [...] before meals. 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 He has one daughter and two grandchildren. His daughter works at [employer] and is very supportive. He works part-time at [employer], but is on leave now. He is a former smoker quit in 1995; he used to smoke other peoples cigarettes when he would drink on the weekends. He drinks 12 cans of beer per week. The patient used to smoke marijuana periodically, but has recently stopped. Phone visit with patient. Patient's location: [place], [place] Provider location: [place], [place] Start time: 1:00 p.m. End time: 1:22 p.m. Nutrition Focused Physical Findings Mouth/Esophagus/Throat: No taste. Difficulty swallowing solid foods. Taking in mostly liquids. Reports having his barium swallow study today with no signs of aspiration. Bowels: Normal with meds to manage Nausea/Vomiting: Nausea post chemo. Has meds to manage. Food/Nutrition Related History Taking in liquids -- Scandishake, Ensure, Boost. Also having chicken noodle soup each day. Drinking water all day long. Weight History Height: 181.5 cm Weight: 101 kg (start weight) BMI: 30.6 kg/m2 (at start weight) Usual Weight/Hx: (104.5 kg) 230# prior to treatment, per patient 09/05/20: 96.4 kg 08/29/20: 99.5 kg 08/22/20: 104.0 kg 08/17/20: 101.0 kg -- Starting weight 08/07/20: 102.0 kg Estimation of Daily Nutritional Needs Calorie: 2250 (HB + .20) Protein: 101 to 121 kg (1.0 to 1.2) Fluid: 2525 ml (25 ml/kg) NUTRITION DIAGNOSIS Unintentional weight loss related to head and neck cancer with chemoradiation as evidenced by a 4.6%weight loss since start of treatment 08/13/20. Nutrition Prescription/Recommendation 2250 calories, 101+ grams of protein and 11 cups of fluid a day. INTERVENTION Today, we discussed the role of nutrition during radiation treatment. We discussed potential side effects of treatment and nutritional guidelines recommendations to help with side effects. Discussed principles of weight maintenance and oral intake recommendations for patients undergoing cancer treatment. Discussed the goal of maintaining current weight (within 5%) during course of treatment and potential need for tube feeding if unable to maintain weight loss under 10%. Encouraged patient related toadequate protein, calorie and fluid intake and discussed options for increasing current usual intake including use of supplements and protein powder. Provided patient his calorie, protein and fluid goals. Discussed importance of staying hydrated and signs/symptoms of dehydration. Encouraged patient toward looking at adequate nutrition like his job or medicine. MONITORING AND EVALUATION: Nutrition parameter to monitor: Weight Desired Outcome:Maintain start weight of 101 kg/222.2 lbs within 5% to 96 kg/211.1 lbs). Patient Goal(s): 1. Consume nutrition supplements and protein powder to meet estimated nutrition needs. He will keep track of calories and protein consumed. 2. Aim for 10 cups fluid per day FOLLOW UP PLAN: Follow up in 2 weeks. Time spent with patient (minutes): 15 minutes AND BURR OPERATOR documented in this encounter Plan of Treatment Upcoming Encounters Date Type Specialty Care Team Description 04/23/2022 Appointment Radiation Oncology Fara Berger M.D. [address] [place] [address] [phone] (Wo rk) Scheduled Referrals Name Type Priority Associated Order Schedule Diagnoses Nutrition - Outpatient Referral Routine Malignant Neoplasm On ce for 1 Medical nutrition Of Tongue Base Occurren buck starting therapy consult ([facility]) 09/06/2020 u ntil (clinic) 09/06/2020 documented as of this encounter Visit Diagnoses Diagnosis Malignant Neoplasm Of Tongue Base (HCC) documented in this encounter
--- OUTSIDE RECORDS SUMMARY | 2022-03-12 04:18 | XMS_ITS | Encounter Summary ---
:1950 Author Organization [facility] Address [address] [place] [address] Care Team Providers Name Role Phone Unavailable Primary Care Provider Unavailable Reason for Referral Outpatient (Routine) - Canceled Specialty Diagnoses / Procedures Referred By Contact Refer red To Contact Nutrition Diagnoses Malignant Neoplasm Of Tongue Base (HCC) Serena Berger M.D. [facility] Region [address] [place] [address] [phone] Referral ID Status Reason Start Date Expiration Date Visits V isits Requested Authorized [id number] Canceled 08/01/2020 08/01/2021 1 1 NING PROFESSIONAL Reason for Visit Outpatient (Routine) - Canceled Specialty Diagnoses / Procedures Referred By Contact Refer red To Contact Nutrition Diagnoses Malignant Neoplasm Of Tongue Base (HCC) Serena Berger M.D. [facility] Region [address] [place] [address] [phone] Referral ID Status Reason Start Date Expiration Date Visits V isits Requested Authorized [id number] Canceled 08/01/2020 08/01/2021 1 1 Encounter Details Date Type Department Care Team Description 09/20/2020 Hospital Encounter Department of Fara Berger M.D. [address] [place] [phone] Malignant Neoplasm Radiation Oncology Natty Moore, LD [address] [place] [address] Of Tongue Base (HCC) in [place], [place] [address] [place] [address] Social History Tobacco Use Types [...] tablet OMEGA-3 FATTY Take by mouth. 0 [id number] ORAL prochlorperazine 10 mg every 8 0 [...] documented as of this encounter Progress Notes Natty Moore LD - 09/20/2020 10:30 AM CST CHIEF COMPLAINT/REASON FOR VISIT Malignant Neoplasm Of Tongue Base (HCC) ?? 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 ASSESSMENT SOCIAL HISTORY He lives in [place], [place]??with his in their own home.?He has one daughter and two grandchildren. His daughter works at [employer] and is very supportive.?He works part-time at [employer], but is on leave now. ??He is a former smoker quit in 1995; he used to smoke otherpeoples cigarettes when he would drink on the weekends. He drinks 12 cans of beer per week. ??The patient??used to??smoke marijuana periodically, but has recently stopped. ?? Nutrition Focused Physical Findings Mouth/Esophagus/Throat: No taste. Difficulty swallowing solid foods. No difficulty with liquids. Reports having his barium swallow study 09/06/20 with no signs of aspiration. Bowels: Normal with meds to manage Nausea/Vomiting: Nausea, meds to manage. Gagging related to secretions, magic mouthwash started yesterday providing relief. Also, doing baking soda rinses. ?? Food/Nutrition Related History Yesterday he had protein powder with a cup of 2% milk. (He believes the protein powder provided about 30 grams of protein.) He had IV fluids following radiation. Then, in the evening he had a scandi shake with 2% milk. He is drinking about 6 cups of water a day.This morning before treatment he had a sc eduard shake with 2% milk and an added estimated 30 gram scoop of protein powder (total 550 calories and 42 grams of protein). He is scheduled for IV fluids again tomorrow. He does not feel he needs themtoday. He is willing to switch to whole milk. Weight History Height: 181.5 cm Weight: 101 kg (start weight) BMI: 30.6 kg/m2 (at start weight) Usual Weight/Hx: (104.5 kg) 230# prior to treatment, per patient. 09/20/20: 92.4 kg 09/19/20: 91.6 kg 09/13/20: 96.0 kg 09/05/20: 96.4 kg 08/29/20: 99.5 kg 08/22/20: 104.0 kg 08/17/20: 101.0 kg -- Starting weight 08/07/20: 102.0 kg ?? Estimation of Daily Nutritional Needs Calorie: 2250 (HB + .20) Protein: 101 to 121 kg (1.0 to 1.2) Fluid: 2525 ml (25 ml/kg) ?? NUTRITION DIAGNOSIS Unintentional weight loss related to head and neck cancer with chemoradiation as evidenced by a 8.5%weight loss since start of treatment 08/13/20. ?? Nutrition Prescription/Recommendation 2250 calories, 101+ grams of protein and 11 cups of fluid a day. ?? INTERVENTION Reviewed principles of weight maintenance and oral intake recommendations. ?? Reviewed the goal of maintaining current weight (within 5%) during course of treatment and potential need for tube feeding if unable to maintain weight loss under 10%. Discussed today's weight is down 8.5% from start weight.Patient expressed strong desire to avoid a tube feeding. Provided patient his calorie, protein and fluid goals along with a handout with calorie and protein content of various supplements and discussedoptions for meeting his needs. Discussed importance maintaining or increasing current weight. Patient reports strong motivation to meet his needs and avoid tube feeding. Also, provided patient Eating Hints: Before, during and after cancer treatment booklet today. Encouraged patient toward looking at adequate nutrition like his job or medicine. Both patient and were attentive and receptive, asking good questions and verbalizing understanding. ?? MONITORING AND EVALUATION: Nutrition parameter to monitor: Weight Desired Outcome: Maintain start weight of 101 kg/222.2 lbs within 5% to 10% (96 kg/211.1 lb to 90.9 kg/200 lbs). Patient Goal(s): 1. Consume nutrition supplements and protein powder to meet estimated nutrition needs. He will keep track of calories and protein consumed. 2. Aim for 10 cups fluid per day. Track this as well. ?? FOLLOW UP PLAN: Plan to follow up next week. ?? Time spent with patient (minutes): 30 NING PROFESSIONAL documented in this encounter Plan of Treatment Upcoming Encounters Date Type Specialty Care Team Description 04/23/2022 Appointment Radiation Oncology Fara Berger M.D. [address] [place], [place] [phone] (Wo rk) Scheduled Referrals Name Type Priority Associated Order Schedule Diagnoses Nutrition - Outpatient Referral Routine Malignant Neoplasm On ce for 1 Medical nutrition Of Tongue Base Occurren buck starting therapy consult (HCC) 09/20/2020 u ntil (clinic) 09/20/2020 documented as of this encounter Visit Diagnoses Diagnosis Malignant Neoplasm Of Tongue Base (HCC) documented in this encounter
--- OUTSIDE RECORDS SUMMARY | 2022-03-12 04:18 | XMS_ITS | Encounter Summary ---
:1950 Author Organization [facility] Address [address] [place] [phone] Care Team Providers Name Role Phone Unavailable Primary Care Provider Unavailable Reason for Referral Radiation Therapy (Routine) - Canceled Specialty Diagnoses / Procedures Referred By Contact Refer red To Contact Diagnoses Malignant Neoplasm Of Tongue Base (HCC) Serena Berger M.D. [facility] Procedures Management Visit [address] [place] [address] [phone] Referral ID Status Reason Start Date Expiration Date Visits V isits Requested Authorized [id number] Canceled 08/01/2020 08/01/2021 1 1 DING MOVER Reason for Visit Radiation Therapy (Routine) - Canceled Specialty Diagnoses / Procedures Referred By Contact Refer red To Contact Diagnoses Malignant Neoplasm Of Tongue Base (HCC) Serena Berger M.D. [facility] Procedures Management Visit [address] [place] [address] [phone] Referral ID Status Reason Start Date Expiration Date Visits V isikia Requested Authorized [id number] Canceled 08/01/2020 08/01/2021 1 1 Encounter Details Date Type Department Care Team Description 09/19/2020 Hospital Encounter Department of Fara Berger M.D. [address] [place] [phone] Malignant Neoplasm Radiation Oncology Sam Foley M.D. [address] [place] [phone] Of Tongue Base (HCC) in [place], [place] [address] [place] [address] Social History Tobacco Use Types Packs/Day Years Used Date Smoking Tobacco: Never Assessed Sex Assigned at Date Recorded Not on file documented as of this encounter Last Filed Vital Signs Vital Sign Reading Time Taken Comments Blood Pressure 123/78 09/19/2020 10:43 AM BUILDING MOVER Pulse 82 09/19/2020 10:43 AM BUILDING MOVER Temperature 36.2 ??C (97.1 ??F) 09/19/2020 10:43 AM BUILDING MOVER Respiratory Rate - - Oxygen Saturation - - Inhaled Oxygen Concentration - - Weight 91.6 kg (201 lb 15.1 oz) 09/19/2020 10:43 AM BUILDING MOVER Height - - Body Mass Index 27.81 08/07/2020 9:56 AM BUILDING MOVER documented in this encounter Medications at Time [...] tablet OMEGA-3 FATTY Take by mouth. 0 [id number] ORAL prochlorperazine 10 mg every 8 0 [...] Progress Notes Dione Mobley P.A.-C., M.S. - 09/19/2020 10:15 AM CST SUBJECTIVE REASON FOR VISIT Evaluation for side effects while receiving radiation treatment for 1. Malignant Neoplasm Of Tongue Base (HCC) SUPERVISED BY: Sam Foley M.D. ([id number]) HISTORY OF PRESENT ILLNESS Mr. Antonio Mancini is a 70-year-old??male??with p16 left base of tongue cancer.?He is [...] Treatment Last Treatment Elapsed Days F1 H&N_BOT [phone] 08/13/2020 09/19/2020 37 Course Summary 08/13/2020 09/19/2020 37 The patient was seen and examined today with Dr. Foley. The patient reports not doing as well this week. He reports worsening thick saliva that causes gagging and nausea. He has increased nausea in the mornings and evenings. He usually has two episodes of vomiting per day, primarily of the thick saliva. He is performing baking soda rinses and drinking extra water with some benefit. He is no longer eating solid foods. He has only been getting in two Boost per day due to the nausea and gagging. He is taking Compazine every 8 hours alternating with Zofran every 8 hours as well as lorazepam three times per day. He denies pain of his mouth or throat. He doesreport pain of his neck rated 8/10 in severity. He is not taking any pain medication. He is applyingCetaphil and Aquaphor to the skin of the neck. He is receiving IV fluids three days per week, but reports that they are ordered for daily if needed. He lost a significant amount of weight this past week. PATIENT REPORTED SYMPTOM SCREEN FATIGUE (Scale: 0 = no fatigue; 10 = worst fatigue you can imagine): 5-6 PAIN (Scale: 0 = no pain; 10 = worst pain you can imagine): 8 OVERALL QUALITY OF LIFE (Scale: 0 = as bad as can be; 10 = as good as can be): 5 OBJECTIVE BP 123/78 (BP Location: Right arm, Patient Position: Sitting, Cuff Size: Regular) Pulse 82 Temp 36.2 ??C (Temporal) Wt 91.6 kg BMI 27.81 kg/m?? WEIGHT August 17, 2020:?101 kg August 29, 2020: ??99.5 kg September 05, 2020: ??96.4 kg September 13, 2020: 96 kg September 19, 2020: 91.6 kg PHYSICAL EXAM General: Alert and oriented in no apparent distress. ENT: Mucositis of the posterior oral cavity. No evidence of thrush. Skin: Brisk erythema of the anterior and bilateral neck. Desquamation on the bilateral neck, worse on the left. 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 His nutritional intake has decreased primarily due to nausea and gagging. He will continue taking his anti-emetics scheduled, as prescribed. We discussed increased use of baking soda rinses as well as use of Magic Mouthwash prior to taking in ScandiShakes or Boost. The patient was also educated on the use of Tylenol 30 minutes prior to meals, maximum of 4,000 mg per day. He was provided with samples of ScandiShakes today and was educated on the importance of increasing his intake to maintain or gain weight. Wediscussed the possible need of a feeding tube with his current weight loss. He has agreed to work on increasing his oral intake and I recommended 4 ScandiShakes per day. He meets with our dietitian tomorrow to review further specific caloric goals. I provided the patient with skin care instructions today including dilute vinegar soaks and dressing changes. He was provided with supplies for dressing changes as well. The patient was recommended to wear v-neck shirts to avoid extra friction on the skin. He is currently scheduled to receive IV fluids today and Thursday this week. We discussed that this might need to be increased to daily. We will schedule another management visit on Thursday to re-assess before the weekend and also to potentially address the need for a feeding tube. He will continue withradiation treatment as planned. Signed by: Dione Mobley P.A.-C., M.S. 09/19/2020 1:27 PM BUILDING MOVER DING MOVER Associated attestation - Sam Foley M.D. - 09/19/2020 2:55 PM BUILDING MOVER I saw and evaluated the patient and participated in the robledo portions of the service. I reviewed the documentation of Dione Mobley P.A.-C. and agree with the findings and plan. The patient is here today with his daughter. He has ulcer mucositis in the posterior oral cavity without thrush and brisk erythema with dry desquamation bilaterally on the neck. He has lost almost 10 kg. We discussed the fact that a feeding tube may be necessary in the near future. He is going to work on increasing his oral hydration and protein shake intake. He is receiving IV fluids 3 times weekly. He will begin dressing changes on his neck and switch to v-neck shirts. He will see Dr. Berger on Thursday for further discussion about a potential feeding tube. He will continue with treatment as planned. Signed by: Sam Foley M.D. 09/19/20 2:55 PM BUILDING MOVER [facility] [place] documented in this encounter Plan of Treatment Upcoming Encounters Date Type Specialty Care Team Description 04/23/2022 Appointment Radiation Oncology Fara Berger M.D. [address] [place], [place] [phone] (Wo rk) Scheduled Orders Name Type Priority Associated Diagnoses Order S chedule Management Visit Radiation Oncology Routine Malignant Neoplasm Once for 1 Of Tongue Base (HCC) Occurre nces starting 09/19/2020 unti l 09/19/2020 documented as of this encounter Visit Diagnoses Diagnosis Malignant Neoplasm Of Tongue Base (HCC) documented in this encounter
--- OUTSIDE RECORDS SUMMARY | 2022-03-12 04:18 | XMS_ITS | Encounter Summary ---
:1950 Author Organization [facility] Address [address] [place] [address] Care Team Providers Name Role Phone Unavailable Primary Care Provider Unavailable Reason for Visit Radiation Therapy (Routine) - Closed Specialty Diagnoses / Procedures Referred By Contact Refer red To Contact Diagnoses Malignant Neoplasm Of Tongue Base (HCC) Serena Berger M.D. [facility] Procedures Prior Auth Rad Tx DC IMRT COMPLEX [address] [place], [place] [phone] Referral ID Status Reason Start Date Expiration Date Visits Requ ested Visits Authorized [id number] Closed 08/13/2020 11/11/2020 35 35 Encounter Details Date Type Department Care Team Description 09/21/2020 Hospital Encounter Department of Radiation Chetna Berger I., [place] [address] [place] [address] [phone] Social History Tobacco Use Types Packs/Day Years [...] tablet OMEGA-3 FATTY Take by mouth. 0 [id number] ORAL prochlorperazine 10 mg every 8 0 [...] Radiation Oncology Fara Berger M.D. [address] [place] [phone] (Wo rk) documented as of this encounter Visit Diagnoses Not on filedocumented in this encounter
--- OUTSIDE RECORDS SUMMARY | 2022-03-12 04:18 | XMS_ITS | Encounter Summary ---
:1950 Author Organization [facility] Address [address] [place] [address] Care Team Providers Name Role Phone Unavailable Primary Care Provider Unavailable Reason for Referral Radiation Therapy (Routine) - Closed Specialty Diagnoses / Procedures Referred By Contact Refer red To Contact Diagnoses Malignant Neoplasm Of Tongue Base (HCC) Serena Berger M.D. [facility] Procedures Verification/Re-Sim [address] [place] [phone] Referral ID Status Reason Start Date Expiration Date Visits Requ ested Visits Authorized [id number] Closed 09/19/2020 09/19/2021 1 1 FABRICATOR Encounter Details Date Type Department Care Team Description 09/19/2020 Orders Only Department of Serena Berger N eoplasm Of Radiation Oncology in [place] Tongue Base (HCC) [facility] [address] [facility] (Primary Dx) [address] [place] [address] [phone] Social History Tobacco Use Types Packs/Day Years Used Date Smoking Tobacco: Never Assessed Sex Assigned at Date Recorded Not on file documented as of this encounter Plan of Treatment Upcoming Encounters Date Type Specialty Care Team Description 04/23/2022 Appointment Radiation Oncology Fara Berger M.D. [address] [place], [place] [phone] (Wo rk) documented as of this encounter Results Verification/Re-Sim (09/20/2020 10:15 AM SIGN FABRICATOR) Specimen (Source) Anatomical Location Collection Method / Collectio n Time Received Time / Laterality Volume Narrative TRISTIN BURROWS - 09/20/2020 10:15 AM SIGN FABRICATOR Waleska Graham, CHRISTY ? 09/20/2020 10:43 AM Verification/Re-Sim Date/Time: 09/20/2020 10:41 AM Performed by: Serena Berger M.D. Authorized by: Serena Berger M.D. Serena Berger M.D. RADIATION ONCOLOGY ORDERABLE S Performing Organization Address City/State/ZIP Code Phon e Number [facility] na documented in this encounter Visit Diagnoses Diagnosis Malignant Neoplasm Of Tongue Base (HCC) - Primary Malignant Neoplasm Of Tongue Base (HCC) documented in this encounter
--- OUTSIDE RECORDS SUMMARY | 2022-03-12 04:18 | XMS_ITS | Encounter Summary ---
:1950 Author Organization [facility] Address [address] [place] [address] Care Team Providers Name Role Phone Unavailable Primary Care Provider Unavailable Reason for Referral Radiation Therapy (Routine) - Canceled Specialty Diagnoses / Procedures Referred By Contact Refer red To Contact Diagnoses Malignant Neoplasm Of Tongue Base (HCC) Serena Berger M.D. [facility] Procedures Management Visit [address] [place] [address] [phone] Referral ID Status Reason Start Date Expiration Date Visits V isits Requested Authorized [id number] Canceled 08/01/2020 08/01/2021 1 1 TATION DESIGN DRAFTSPERSON Reason for Visit Radiation Therapy (Routine) - Canceled Specialty Diagnoses / Procedures Referred By Contact Refer red To Contact Diagnoses Malignant Neoplasm Of Tongue Base (HCC) Serena Berger M.D. [facility] Procedures Management Visit [address] [place] [address] [phone] Referral ID Status Reason Start Date Expiration Date Visits V isikia Requested Authorized [id number] Canceled 08/01/2020 08/01/2021 1 1 Encounter Details Date Type Department Care Team Description 09/05/2020 Hospital Encounter Department of Fara Berger M.D. [address] [place] [phone] Malignant Neoplasm Radiation Oncology Sam Foley M.D. [address] [place] [phone] Of Tongue Base (HCC) in [place], [place] [address] [place] [address] Social History Tobacco Use Types Packs/Day Years Used Date Smoking Tobacco: Never Assessed Sex Assigned at Date Recorded Not on file documented as of this encounter Last Filed Vital Signs Vital Sign Reading Time Taken Comments Blood Pressure 154/82 09/05/2020 9:02 AM SUBSTATION DESIGN DRAFTSPERSON Pulse 78 09/05/2020 9:02 AM SUBSTATION DESIGN DRAFTSPERSON Temperature 36.4 ??C (97.6 ??F) 09/05/2020 9:02 AM SUBSTATION DESIGN DRAFTSPERSON Respiratory Rate - - Oxygen Saturation - - Inhaled Oxygen Concentration - - Weight 96.4 kg (212 lb 8.4 oz) 09/05/2020 9:02 AM SUBSTATION DESIGN DRAFTSPERSON Height - - Body Mass Index 29.26 08/07/2020 9:56 AM SUBSTATION DESIGN DRAFTSPERSON documented in this encounter Medications at Time [...] tablet OMEGA-3 FATTY Take by mouth. 0 [id number]-[id number]-[id number] ORAL prochlorperazine 10 mg every 8 0 [...] Progress Notes Dione Mobley P.A.-C., M.S. - 09/05/2020 8:45 AM CST SUBJECTIVE REASON FOR VISIT Evaluation for side effects while receiving radiation treatment for 1. Malignant Neoplasm Of Tongue Base (HCC) SUPERVISED BY: Sam Foley M.D. ([id number]) HISTORY OF PRESENT ILLNESS Mr. Antonio Mancini is a 70-year-old male with p16 left base of tongue cancer.?He is now undergoing definitive radiotherapy. ??He is scheduled for 3 doses of concurrent cisplatin under the care of Dr. Méndez. ??Chemotherapy was delayed until August 21, 2020 due to potential COVID exposure and needing repeat COVID testing. Treatment Course: 1x L BOT, necks Plan ID Fractions Dose / Fraction (cGy) Dose Treated (cGy) Dose Planned (cGy) First Treatment Last Treatment Elapsed Days F1 H&N_BOT 200 [id number] 7000 08/13/2020 09/05/2020 23 Course Summary 08/13/2020 09/05/2020 23 The patient was seen and examined today with Dr. Foley. The patient reports doing well overall. He rates his fatigue as 6-7/10 in severity. He reports that his nutritional intake is primarily liquids with some soft foods. He reports that his throat opening is not large enough to eat solid foods and these cause him to gag. He has supplemental shakes and is also making his own protein shakes. He is adding in Super Food supplement. He is taking in 3 shakes per day. He is not sure of his calorie intake. He has lost weight this week. He denies pain with swallowing. He has a constant sore throat, rated 2/10 in severity. He reports that the pain of his left neck that he had at diagnosis has resolved. He is not taking any pain medication. He denies any signs of thrush. He reports continued thick saliva especially at night. He is performing baking soda/salt rinses. He is using a humidifier. He also has Biotene and XyliMelts. PATIENT REPORTED SYMPTOM SCREEN FATIGUE (Scale: 0 = no fatigue; 10 = worst fatigue you can imagine): 6-7 PAIN (Scale: 0 = no pain; 10 = worst pain you can imagine): 0 OVERALL QUALITY OF LIFE (Scale: 0 = as bad as can be; 10 = as good as can be): 8 OBJECTIVE BP 154/82 (BP Location: Right arm, Patient Position: Sitting, Cuff Size: Regular) Pulse 78 Temp 36.4 ??C (Temporal) Wt 96.4 kg BMI 29.26 kg/m?? WEIGHT August 17, 2020: 101 kg August 29, 2020: 99.5 kg September 05, 2020: 96.4 kg PHYSICAL EXAM General: Alert and oriented in no apparent distress. 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 He has lost weight this week. We discussed the importance of maintaining good nutritional and fluid intake during radiation treatment. I havescheduled him for a phone visit with our dietitian here tomorrow for further information on calorie and protein needs. I also provided him with samples of ScandiShake. In the meantime, he was recommended to increase his intake by at least another shake per day. He will continue with management of dry mouth/thick saliva. Dr. Foley recommended taking Tylenol 500 mg and Magic Mouthwash prior to eating. A prescription for Magic Mouthwash will be sent to his preferred pharmacy today. The patient is ling edule for a barium swallow study at the [facility] tomorrow. He will contact us if he experiences new or worsening symptoms, especially throat pain. He will continue with radiation treatment as planned. Signed by: Dione Mobley P.A.-C., M.S. 09/05/2020 9:37 AM SUBSTATION DESIGN DRAFTSPERSON TATION DESIGN DRAFTSPERSON Associated attestation - Sam Foley M.D. - 09/05/2020 11:12 AM SUBSTATION DESIGN DRAFTSPERSON I saw and evaluated the patient and participated in the robledo portions of the service. I reviewed the documentation of Dione Mobley P.A.-C. and agree with the findings and plan. The patient appears well onexam. His left neck mass is shrinking markedly. His skin looks good. He does have some ulcerative mucositis in the posterior oropharynx. He is losing weight. He is down 5 kg. He only has 5 kg more to go before he will potentially need a feeding tube. We discussed this. He will increase his intake of protein shakes. His daughter, Janee, is here with him and is a nurse. She and he both verbalized understanding of this. I signed a new FMLA form for the patient's spouse. He will continue with treatment as planned. Signed by: Sam Foley M.D. 09/05/20 11:12 AM SUBSTATION DESIGN DRAFTSPERSON [facility] documented in this encounter Plan of Treatment Upcoming Encounters Date Type Specialty Care Team Description 04/23/2022 Appointment Radiation Oncology Fara Berger M.D. [address] [place], [place] [phone] (Wo rk) Scheduled Orders Name Type Priority Associated Diagnoses Order S chedule Management Visit Radiation Oncology Routine Malignant Neoplasm Once for 1 Of Tongue Base (HCC) Occurre nces starting 09/05/2020 unti l 09/05/2020 documented as of this encounter Visit Diagnoses Diagnosis Malignant Neoplasm Of Tongue Base (HCC) documented in this encounter
--- OUTSIDE RECORDS SUMMARY | 2022-03-12 04:18 | XMS_ITS | Encounter Summary ---
:1950 Author Organization [facility] Address [address] [place] [address] 105[address] Care Team Providers Name Role Phone Unavailable Primary Care Provider Unavailable Reason for Visit Radiation Therapy (Routine) - Closed Specialty Diagnoses / Procedures Referred By Contact Refer red To Contact Diagnoses Malignant Neoplasm Of Tongue Base (HCC) Serena Berger M.D. [facility] Procedures Prior Auth Rad Tx [place] IMRT COMPLEX [address] [place], [place] [phone] Referral ID Status Reason Start Date Expiration Date Visits Requ ested Visits Authorized [id number] Closed 08/13/2020 11/11/2020 35 35 Encounter Details Date Type Department Care Team Description 09/20/2020 Hospital Encounter Department of Radiation Chetna Berger I., [place] [address] [place] [address] [phone] Social History Tobacco Use Types Packs/Day Years [...] tablet OMEGA-3 FATTY Take by mouth. 0 [id number] ORAL prochlorperazine 10 mg every 8 0 [...] Radiation Oncology Fara Berger M.D. [address] [place] [address] [phone] (Wo rk) documented as of this encounter Visit Diagnoses Not on filedocumented in this encounter
--- OUTSIDE RECORDS SUMMARY | 2022-03-12 04:18 | XMS_ITS | Encounter Summary ---
:1950 Author Organization [facility] Address [address] [place] [address] 27932 Care Team Providers Name Role Phone Unavailable Primary Care Provider Unavailable Reason for Visit Radiation Therapy (Routine) - Closed Specialty Diagnoses / Procedures Referred By Contact Refer red To Contact Diagnoses Malignant Neoplasm Of Tongue Base (HCC) Serena Berger M.D. [facility] Procedures Prior Auth Rad Tx [place] IMRT COMPLEX [address] [place], [place] [address] Referral ID Status Reason Start Date Expiration Date Visits Requ ested Visits Authorized [id number] Closed 08/13/2020 11/11/2020 35 35 Encounter Details Date Type Department Care Team Description 09/24/2020 Hospital Encounter Department of Radiation Chetna Berger I., [place]cology in [place] [address] [place] [address] [phone] Social History Tobacco Use Types Packs/Day Years [...] tablet OMEGA-3 FATTY Take by mouth. 0 [id number] ORAL prochlorperazine 10 mg every 8 0 [...] Radiation Oncology Fara Berger M.D. [address] [place] [address] [phone] (Wo rk) documented as of this encounter Visit Diagnoses Not on filedocumented in this encounter
--- OUTSIDE RECORDS SUMMARY | 2022-03-12 04:18 | XMS_ITS | Encounter Summary ---
:1950 Author Organization [facility] Address [address] [place] [address]703 Care Team Providers Name Role Phone Unavailable Primary Care Provider Unavailable Reason for Visit Radiation Therapy (Routine) - Closed Specialty Diagnoses / Procedures Referred By Contact Refer red To Contact Diagnoses Malignant Neoplasm Of Tongue Base (HCC) Serena Berger M.D. [facility] Procedures Prior Auth Rad Tx [place] IMRT COMPLEX [address] [place], [place] [phone] Referral ID Status Reason Start Date Expiration Date Visits Requ ested Visits Authorized [id number] Closed 08/13/2020 11/11/2020 35 35 Encounter Details Date Type Department Care Team Description 09/04/2020 Hospital Encounter Department of Radiation Chetna Berger I., [place]cology [place] [address] [place] [address] [phone] Social History Tobacco Use Types Packs/Day Years [...] tablet OMEGA-3 FATTY Take by mouth. 0 [id number] ORAL prochlorperazine 10 mg every 8 0 [...] 04/23/2022 Appointment Radiation Oncology Fara Berger M.D. [address] [place] [phone] (Wo rk) documented as of this encounter Visit Diagnoses Not on filedocumented in this encounter
--- OUTSIDE RECORDS SUMMARY | 2022-03-12 04:18 | XMS_ITS | Encounter Summary ---
:1950 Author Organization [facility] Address [address] [place] [address] Care Team Providers Name Role Phone Unavailable Primary Care Provider Unavailable Reason for Visit Radiation Therapy (Routine) - Closed Specialty Diagnoses / Procedures Referred By Contact Refer red To Contact Diagnoses Malignant Neoplasm Of Tongue Base (HCC) Serena Berger M.D. [facility] Procedures Prior Auth Rad Tx [place] IMRT COMPLEX [address] [place], [place] [phone] Referral ID Status Reason Start Date Expiration Date Visits Requ ested Visits Authorized [id number] Closed 08/13/2020 11/11/2020 35 35 Encounter Details Date Type Department Care Team Description 09/19/2020 Hospital Encounter Department of Radiation Chetna Berger I., [place]cology [place] [address] [place] [address] [phone] Social History Tobacco Use Types Packs/Day Years [...] tablet OMEGA-3 FATTY Take by mouth. 0 [id number] ORAL prochlorperazine 10 mg every 8 0 [...] Radiation Oncology Fara Berger M.D. [address] [place] [address] [phone] (Wo rk) documented as of this encounter Visit Diagnoses Not on filedocumented in this encounter
--- OUTSIDE RECORDS SUMMARY | 2022-03-12 04:18 | XMS_ITS | Encounter Summary ---
:1950 Author Organization [facility] Address [address] [place] [address] 24542 Care Team Providers Name Role Phone Unavailable Primary Care Provider Unavailable Reason for Referral Radiation Therapy (Routine) - Canceled Specialty Diagnoses / Procedures Referred By Contact Refer red To Contact Diagnoses Malignant Neoplasm Of Tongue Base (HCC) Serena Berger M.D. [facility] Procedures Management Visit [address] [place] [address] [phone] Referral ID Status Reason Start Date Expiration Date Visits V isits Requested Authorized [id number] Canceled 08/01/2020 08/01/2021 1 1 TION PROJECT ENGINEER Reason for Visit Radiation Therapy (Routine) - Canceled Specialty Diagnoses / Procedures Referred By Contact Refer red To Contact Diagnoses Malignant Neoplasm Of Tongue Base (HCC) Serena Berger M.D. [facility] Procedures Management Visit [address] [place] [address] [phone] Referral ID Status Reason Start Date Expiration Date Visits V isikia Requested Authorized [id number] Canceled 08/01/2020 08/01/2021 1 1 Encounter Details Date Type Department Care Team Description 09/21/2020 Hospital Encounter Department of Serena Berger Neoplasm Radiation Oncology Hardik Barber Of Tongue Base (HCC) in [place], [address] [place] [address] 1821 [facility] [address] [place], [place] [phone] (Work) [phone] Social History Tobacco Use Types Packs/Day Years Used Date Smoking Tobacco: Never Assessed Sex Assigned at Date Recorded Not on file documented as of this encounter Last Filed Vital Signs Vital Sign Reading Time Taken Comments Blood Pressure 127/77 09/21/2020 10:46 AM AVIATION PROJECT ENGINEER Pulse 77 09/21/2020 10:46 AM AVIATION PROJECT ENGINEER Temperature 36.2 ??C (97.1 ??F) 09/21/2020 10:46 AM AVIATION PROJECT ENGINEER Respiratory Rate - - Oxygen Saturation - - Inhaled Oxygen Concentration - - Weight 92 kg (202 lb 13.2 oz) 09/21/2020 10:46 AM AVIATION PROJECT ENGINEER Height - - Body Mass Index 27.93 08/07/2020 9:56 AM AVIATION PROJECT ENGINEER documented in this encounter Medications at Time [...] tablet OMEGA-3 FATTY Take by mouth. 0 [id number] ORAL prochlorperazine 10 mg every 8 0 [...] encounter Progress Notes Serena Berger M.D. - 09/21/2020 10:15 AM CST ATTESTATION FOR MANAGEMENT VISIT I saw and evaluated the patient and participated in the robledo portions of the service as noted below. I reviewed the documentation of Ms. Yuliana Shahid RN and agree with the findings and plan. The patient appears well on exam. We will continue with radiation as planned and monitor weekly. Serena Berger M.D., 09/21/2020 SUBJECTIVE REASON FOR VISIT Evaluation for side effects while receiving radiation treatment for 1. Malignant Neoplasm Of Tongue Base (HCC) SUPERVISED BY: Dr. Berger HISTORY OF PRESENT ILLNESS Mr. Antonio Mancini [...] Last Treatment Elapsed Days F1 H&N_BOT [phone] 08/13/2020 09/21/2020 39 Course Summary 08/13/2020 09/21/2020 39 The patient was seen and examined today with Dr. Berger. The patient reports that he has not needed to take Tylenol in awhile. He manages his sore throat pain with Magic Mouthwash twice or so a day. He has been slowly able to increase his Scandishake intake.He took in 2.5 Scandishakes yesterday. He denies nausea but does report struggle with thick secretions. Thick secretions build up and at times cause gag/vomit reflux. This happened once last night. He is using a humidifier, baking soda and salt rinses. He is taking in 3 bottles of water a day. He is applying Xeroform and Aquaphor to the treatment field area. He has not started white vinegar soaks yet. He denies fevers, chills, cough or shortness of breath. PATIENT REPORTED SYMPTOM SCREEN FATIGUE (Scale: 0 = no fatigue; 10 = worst fatigue you can imagine): 6 PAIN (Scale: 0 = no pain; 10 = worst pain you can imagine): 4 OVERALL QUALITY OF LIFE (Scale: 0 = as bad as can be; 10 = as good as can be): 5 OBJECTIVE BP 127/77 (BP Location: Right arm, Patient Position: Sitting, Cuff Size: Regular) Pulse 77 Temp 36.2 ??C (Temporal) Wt 92 kg BMI 27.93 kg/m?? WEIGHT August 17, 2020:?101 kg August 29, 2020: ??99.5 kg September 05, 2020: ??96.4 kg September 13, 2020: 96 kg September 19, 2020: 91.6 kg September 21, 2020: 92.0 kg PHYSICAL EXAM General: Alert and oriented [...] September 28, 2020; Cisplatin??chemotherapy??initiated??on August 19, 2020 Patient is scheduled for IV fluids today. His weight has increased by 0.4 kg since this past Thursday. I reviewed the importance of taking in 2250 calories a day and at least 10 cups of fluids a day. Samples of Scandishakes were provided to patient today. He was not able to tolerate whole milk so using 2% milk with Scandishakes. I recommended adding ice cream, yogurt, honey and/or banana into shakesto help increase daily caloric intake. I also reviewed Nutritious and Flavorful Blended Meals [id number] patient and his daughter today. He is to start white vinegar soaks today. He will continue withradiation treatment as planned. We will continue to closely monitor patient. He has been encouraged to contact our care team for any questions or concerns. Signed by: Yuliana Shahid R.N. 09/21/2020 1:57 PM AVIATION PROJECT ENGINEER TION PROJECT ENGINEER documented in this encounter Plan of Treatment Upcoming Encounters Date Type Specialty Care Team Description 04/23/2022 Appointment Radiation Oncology Fara Berger M.D. [address] [place], [place] [phone] (Wo rk) Scheduled Orders Name Type Priority Associated Diagnoses Order S chedule Management Visit Radiation Oncology Routine Malignant Neoplasm Once for 1 Of Tongue Base (HCC) Occurre nces starting 09/21/2020 unti l 09/21/2020 documented as of this encounter Visit Diagnoses Diagnosis Malignant Neoplasm Of Tongue Base (HCC) documented in this encounter
--- OUTSIDE RECORDS SUMMARY | 2022-03-12 04:18 | XMS_ITS | Encounter Summary ---
:1950 Author Organization [facility] Address [address] [place] [address] Care Team Providers Name Role Phone Unavailable Primary Care Provider Unavailable Reason for Visit Radiation Therapy (Routine) - Closed Specialty Diagnoses / Procedures Referred By Contact Refer red To Contact Diagnoses Malignant Neoplasm Of Tongue Base (HCC) Serena Berger M.D. [facility] Procedures Prior Auth Rad Tx [place] IMRT COMPLEX [address] [place], [place] [phone] Referral ID Status Reason Start Date Expiration Date Visits Requ ested Visits Authorized [id number] Closed 08/13/2020 11/11/2020 35 35 Encounter Details Date Type Department Care Team Description 09/12/2020 Hospital Encounter Department of Radiation Chetna Berger I., [place]cology [place] [address] [place] [address] [phone] Social History Tobacco Use Types Packs/Day Years [...] tablet OMEGA-3 FATTY Take by mouth. 0 [id number] ORAL prochlorperazine 10 mg every 8 0 [...] Radiation Oncology Fara Berger M.D. [address] [place] [address] [phone] (Wo rk) documented as of this encounter Visit Diagnoses Not on filedocumented in this encounter
--- OUTSIDE RECORDS SUMMARY | 2022-03-12 04:18 | XMS_ITS | Encounter Summary ---
:[address] [facility] Address [address] [place] [address] Care Team Providers Name Role Phone Unavailable Primary Care Provider Unavailable Encounter Details Date Type Department Care Team Description 09/07/2020 Orders Only Department of Radiation Dione Mobley Mal ignant Neoplasm Of Oncology in [place], [place], M.S. Tongue Base (HCC) [place] [address] [facility] (Primary Dx) [address] [place] [address] [phone] Social History Tobacco Use Types Packs/Day Years Used Date Smoking Tobacco: Never Assessed Sex Assigned at Date Recorded Not on file documented as of this encounter Plan of Treatment Upcoming Encounters Date Type Specialty Care Team Description 04/23/2022 Appointment Radiation Oncology Fara Berger M.D. [address] [place], [place] [phone] (Wo rk) documented as of this encounter Visit Diagnoses Diagnosis Malignant Neoplasm Of Tongue Base (HCC) - Primary documented in this encounter
--- OUTSIDE RECORDS SUMMARY | 2022-03-12 04:18 | XMS_ITS | Encounter Summary ---
:[address] [facility] Address [address] [place] [address]256 Care Team Providers Name Role Phone Unavailable Primary Care Provider Unavailable Reason for Visit Radiation Therapy (Routine) - Closed Specialty Diagnoses / Procedures Referred By Contact Refer red To Contact Diagnoses Malignant Neoplasm Of Tongue Base (HCC) Serena Berger M.D. [facility] Procedures Prior Auth Rad Tx [place] IMRT COMPLEX [address] [place], [place] [address] Referral ID Status Reason Start Date Expiration Date Visits Requ ested Visits Authorized [id number] Closed 08/13/2020 11/11/2020 35 35 Encounter Details Date Type Department Care Team Description 09/10/2020 Hospital Encounter Department of Radiation Chetna Berger I., [place]cology in [place] [address] [place] [address] [phone] Social History Tobacco Use Types Packs/Day Years [...] tablet OMEGA-3 FATTY Take by mouth. 0 [id number] ORAL prochlorperazine 10 mg every 8 0 [...] Radiation Oncology Fara Berger M.D. [address] [place] [address] [phone] (Wo rk) documented as of this encounter Visit Diagnoses Not on filedocumented in this encounter
--- OUTSIDE RECORDS SUMMARY | 2022-03-12 04:18 | XMS_ITS | Encounter Summary ---
:1950 Author Organization [facility] Address [address] [place] [address] Care Team Providers Name Role Phone Unavailable Primary Care Provider Unavailable Reason for Visit Radiation Therapy (Routine) - Closed Specialty Diagnoses / Procedures Referred By Contact Refer red To Contact Diagnoses Malignant Neoplasm Of Tongue Base (HCC) Serena Berger M.D. [facility] Procedures Prior Auth Rad Tx [place] IMRT COMPLEX [address] [place], [place] 3477[phone] Referral ID Status Reason Start Date Expiration Date Visits Requ ested Visits Authorized [id number] Closed 08/13/2020 11/11/2020 35 35 Encounter Details Date Type Department Care Team Description 09/06/2020 Hospital Encounter Department of Radiation Chetna Berger I., [place] [address] [place] [address] [phone] Social History Tobacco Use Types Packs/Day Years [...] tablet OMEGA-3 FATTY Take by mouth. 0 [id number] ORAL prochlorperazine 10 mg every 8 0 [...] Fara Berger M.D. [address] [place] [address] [phone] (Wo rk) documented as of this encounter Visit Diagnoses Not on filedocumented in this encounter
--- OUTSIDE RECORDS SUMMARY | 2022-03-12 04:18 | XMS_ITS | Encounter Summary ---
:1950 Author Organization [facility] Address [address] [place] [address] Care Team Providers Name Role Phone Unavailable Primary Care Provider Unavailable Reason for Visit Radiation Therapy (Routine) - Closed Specialty Diagnoses / Procedures Referred By Contact Refer red To Contact Diagnoses Malignant Neoplasm Of Tongue Base (HCC) Serena Berger M.D. [facility] Procedures Prior Auth Rad Tx [place] IMRT COMPLEX [address] [place], [place] [address] Referral ID Status Reason Start Date Expiration Date Visits Requ ested Visits Authorized [id number] Closed 08/13/2020 11/11/2020 35 35 Encounter Details Date Type Department Care Team Description 09/11/2020 Hospital Encounter Department of Radiation Chetna Berger I., [place] [address] [place] [address] [phone] Social History Tobacco Use Types Packs/Day Years [...] tablet OMEGA-3 FATTY Take by mouth. 0 [id number] ORAL prochlorperazine 10 mg every 8 0 [...] Radiation Oncology Fara Berger M.D. [address] [place] [address] [phone] (Wo rk) documented as of this encounter Visit Diagnoses Not on filedocumented in this encounter
--- OUTSIDE RECORDS SUMMARY | 2022-03-12 04:18 | XMS_ITS | Encounter Summary ---
:1950 Author Organization [facility] Address [address] [place] [address] Care Team Providers Name Role Phone Unavailable Primary Care Provider Unavailable Encounter Details Date Type Department Care Team Description 09/21/2020 Clinical Communication Department of Serena Berger Radiation Oncology in [facility] [address] [facility] [address] [place] [address] [phone] Social History Tobacco Use Types Packs/Day Years Used Date Smoking Tobacco: Never Assessed Sex Assigned at Date Recorded Not on file documented as of this encounter Miscellaneous Notes Telephone Encounter - Dione Mobley P.A.-C., M.S. - 09/21/2020 2:23 PM GAS ENGINE MECHANIC I received a phone call today from Kaycee at [facility] regarding Mr. Mancini. Andreworts that he is there getting IV fluids today. They checked labs on him and his creatinine had increased up to 2.5. She felt that this was likely due to dehydration, but wanted to update as well. She is going to give him 2L of IV fluids today. He will also be scheduled for IV fluids tomorrow and possibly on Thursday. I reviewed the patient's case with Dr. Berger today. We did not have any further recommendations from a radiation therapy standpoint on changes in management at this time. The patient has had improved oral nutritional and fluid intake over the past day, so hopefully that will help as well. He should have his labs re-checked at the [facility] again within a few days. We will continue to coordinate our care of the patient. Dione Mobley P.A.-C. ENGINE MECHANIC Telephone Encounter - Gabriela Stevens - 09/21/2020 12:35 PM CST Caller: Kaycee at [facility] Is there a valid authorization to speak with caller? Yes and n/a Primary Radiation Oncologist: Dr. Berger Reason for call: Kaycee calls asking to speak to Dione regarding Mr. Mancini. Phone number: Is it okay to leave a voicemail on answering machine with test results? No Pharmacy (if medication related): N/A Gabriela Stevens ENGINE MECHANIC documented in this encounter Plan of Treatment Upcoming Encounters Date Type Specialty Care Team Description 04/23/2022 Appointment Radiation Oncology Fara Berger M.D. [address] [place] [address] [phone] (Wo rk) documented as of this encounter Visit Diagnoses Not on filedocumented in this encounter
--- OUTSIDE RECORDS SUMMARY | 2022-03-12 04:18 | XMS_ITS | Encounter Summary ---
:1950 Author Organization [facility] Address [address] [place] [address] Care Team Providers Name Role Phone Unavailable Primary Care Provider Unavailable Encounter Details Date Type Department Care Team Description 09/19/2020 Clinical Communication Department of Serena Berger Radiation Oncology in [facility] [address] [facility] [address] [place] [address] [phone] Social History Tobacco Use Types Packs/Day Years Used Date Smoking Tobacco: Never Assessed Sex Assigned at Date Recorded Not on file documented as of this encounter Miscellaneous Notes Telephone Encounter - Dione Mobley P.A.-C., M.S. - 09/20/2020 8:29 AM BEHAVIORAL ASSISTANT I communicated with Kaycee Sheppard from [facility] late yesterday regarding the patient's care. They were considering starting the patient on dexamethasone bid for 4-5 days for nausea. After Kaycee spoke with the patient again, he had tried Magic Mouthwash and was hopeful with use of the medication. At this time, they did not prescribe dexamethasone for the patient. Mr. Mancini is scheduled to meetwith our dietitian today. He is scheduled for a management visit with Dr. Berger on Thursday. He is also scheduled for IV fluids and magnesium on Thursday at the [facility]. We will continue to be in contact with his other providers for coordination of his care. Dione Mobley P.A.-C. VIORAL ASSISTANT Telephone Encounter - Gabriela Stevens - 09/19/2020 1:58 PM CST Caller: Kaycee from [facility] Is there a valid authorization to speak with caller? Yes and n/a Primary Radiation Oncologist: Dr. Berger Reason for call: Kaycee would like to speak with someone regarding Mr. Mancini. Dione saw the patient withDr. Foley today. Phone number: [phone] (Kaycee's cell) Is it okay to leave a voicemail on answering machine with test results? No Pharmacy (if medication related): N/A Gabriela Stevens VIORAL ASSISTANT documented in this encounter Plan of Treatment Upcoming Encounters Date Type Specialty Care Team Description 04/23/2022 Appointment Radiation Oncology Fara Berger M.D. [address] [place] [address] [phone] (Wo rk) documented as of this encounter Visit Diagnoses Not on filedocumented in this encounter
--- OUTSIDE RECORDS SUMMARY | 2022-03-12 04:18 | XMS_ITS | Encounter Summary ---
:1950 Author Organization [facility] Address [address] [place] [address] Care Team Providers Name Role Phone Unavailable Primary Care Provider Unavailable Reason for Visit Radiation Therapy (Routine) - Closed Specialty Diagnoses / Procedures Referred By Contact Refer red To Contact Diagnoses Malignant Neoplasm Of Tongue Base (HCC) Serena Berger M.D. [facility] Procedures Prior Auth Rad Tx [place] IMRT COMPLEX [address] [place], [place] [address] Referral ID Status Reason Start Date Expiration Date Visits Requ ested Visits Authorized [id number] Closed 08/13/2020 11/11/2020 35 35 Encounter Details Date Type Department Care Team Description 09/14/2020 Hospital Encounter Department of Radiation Chetna Berger I., [place]cology [place] [address] [place] [address] [phone] Social History Tobacco Use Types Packs/Day Years [...] tablet OMEGA-3 FATTY Take by mouth. 0 [id number] ORAL prochlorperazine 10 mg every 8 0 [...] Radiation Oncology Fara Berger M.D. [address] [place] [address] [phone] (Wo rk) documented as of this encounter Visit Diagnoses Not on filedocumented in this encounter
--- OUTSIDE RECORDS SUMMARY | 2022-03-12 04:18 | XMS_ITS | Encounter Summary ---
:1950 Author Organization [facility] Address [address] [place] [address] Care Team Providers Name Role Phone Unavailable Primary Care Provider Unavailable Reason for Visit Radiation Therapy (Routine) - Closed Specialty Diagnoses / Procedures Referred By Contact Refer red To Contact Diagnoses Malignant Neoplasm Of Tongue Base (HCC) Serena Berger M.D. [facility] Procedures Prior Auth Rad Tx [place] IMRT COMPLEX [address] [place], [place] [address] Referral ID Status Reason Start Date Expiration Date Visits Requ ested Visits Authorized [id number] Closed 08/13/2020 11/11/2020 35 35 Encounter Details Date Type Department Care Team Description 09/17/2020 Hospital Encounter Department of Radiation Chetna Berger I., [place] [address] [place] [address] [phone] Social History Tobacco Use Types Packs/Day Years [...] tablet OMEGA-3 FATTY Take by mouth. 0 [id number] ORAL prochlorperazine 10 mg every 8 0 [...] Radiation Oncology Fara Berger M.D. [address] [place] [address] [phone] (Wo rk) documented as of this encounter Visit Diagnoses Not on filedocumented in this encounter
--- OUTSIDE RECORDS SUMMARY | 2022-03-12 04:18 | XMS_ITS | Encounter Summary ---
:1950 Author Organization [facility] Address [address] [place] [address] Care Team Providers Name Role Phone Unavailable Primary Care Provider Unavailable Reason for Visit Radiation Therapy (Routine) - Closed Specialty Diagnoses / Procedures Referred By Contact Refer red To Contact Diagnoses Malignant Neoplasm Of Tongue Base (HCC) Serena Berger M.D. [facility] Procedures Prior Auth Rad Tx [place] IMRT COMPLEX [address] [place], [place] [address] Referral ID Status Reason Start Date Expiration Date Visits Requ ested Visits Authorized [id number] Closed 08/13/2020 11/11/2020 35 35 Encounter Details Date Type Department Care Team Description 09/07/2020 Hospital Encounter Department of Radiation Chetna Berger I., [place]cology [place] [address] [place] [address] [phone] Social History Tobacco Use Types Packs/Day Years [...] tablet OMEGA-3 FATTY Take by mouth. 0 [id number] ORAL prochlorperazine 10 mg every 8 0 [...] Radiation Oncology Fara Berger M.D. [address] [place] [address] [phone] (Wo rk) documented as of this encounter Visit Diagnoses Not on filedocumented in this encounter
--- OUTSIDE RECORDS SUMMARY | 2022-03-12 04:18 | XMS_ITS | Encounter Summary ---
:1950 Author Organization [facility] Address [address] [place] [address] Care Team Providers Name Role Phone Unavailable Primary Care Provider Unavailable Reason for Referral Radiation Therapy (Routine) - Canceled Specialty Diagnoses / Procedures Referred By Contact Refer red To Contact Diagnoses Malignant Neoplasm Of Tongue Base (HCC) Serena Berger M.D. [facility] Procedures Management Visit [address] [place] [phone] Referral ID Status Reason Start Date Expiration Date Visits V isits Requested Authorized [id number] Canceled 08/01/2020 08/01/2021 1 1 IN MACHINE OPERATOR Reason for Visit Radiation Therapy (Routine) - Canceled Specialty Diagnoses / Procedures Referred By Contact Refer red To Contact Diagnoses Malignant Neoplasm Of Tongue Base (HCC) Serena Berger M.D. [facility] Procedures Management Visit [address] [place] [phone] Referral ID Status Reason Start Date Expiration Date Visits V isikia Requested Authorized [id number] Canceled 08/01/2020 08/01/2021 1 1 Encounter Details Date Type Department Care Team Description 09/13/2020 Hospital Encounter Department of Serena Berger Neoplasm Radiation Oncology [facility] Of Tongue Base (HCC) in [place], [address] [place] [address] [address] [facility] [address] [place], [place] [phone] (Work) [phone] Social History Tobacco Use Types Packs/Day Years Used Date Smoking Tobacco: Never Assessed Sex Assigned at Date Recorded Not on file documented as of this encounter Last Filed Vital Signs Vital Sign Reading Time Taken Comments Blood Pressure 133/70 09/13/2020 10:29 AM TIE IN MACHINE OPERATOR Pulse 78 09/13/2020 10:29 AM TIE IN MACHINE OPERATOR Temperature 36.8 ??C (98.3 ??F) 09/13/2020 10:29 AM TIE IN MACHINE OPERATOR Respiratory Rate - - Oxygen Saturation - - Inhaled Oxygen Concentration - - Weight 96 kg (211 lb 10.3 oz) 09/13/2020 10:29 AM TIE IN MACHINE OPERATOR Height - - Body Mass Index 29.14 08/07/2020 9:56 AM TIE IN MACHINE OPERATOR documented in this encounter Medications at Time [...] tablet OMEGA-3 FATTY Take by mouth. 0 [id number] ORAL prochlorperazine 10 mg every 8 0 [...] Progress Notes Dione Mobley P.A.-C., M.S. - 09/13/2020 10:30 AM CST SUBJECTIVE REASON FOR VISIT Evaluation [...] Last Treatment Elapsed Days F1 H&N_BOT 200 4800 7000 08/13/2020 09/13/2020 31 Course Summary 08/13/2020 09/13/2020 31 The patient was seen and examined today with Dr. Berger. The patient reports doing about the same overall. He reports fatigue rated 4- 5/10 in severity. He iscontinuing to get his nutrition through smoothies and shakes as he isn't able to eat solid foods. Helost 0.4 kg this past week. He reports having a constant sore throat, but doesn't feel like he needspain medication. He is not taking Tylenol any more. He has not used Magic Mouthwash yet. He reports thick saliva and dry mouth. He is performing baking soda rinses. He reports noticing more skin redness this week. He denies peeling of the skin. He is applying moisturizers to the skin. He is scheduled to receive IV fluids tomorrow. He has had occasional dizziness, but not regularly. PATIENT REPORTED SYMPTOM SCREEN FATIGUE (Scale: 0 = no fatigue; 10 = worst fatigue you can imagine): 4-5 PAIN (Scale: 0 = no pain; 10 = worst pain you can imagine): 4 OVERALL QUALITY OF LIFE (Scale: 0 = as bad as can be; 10 = as good as can be): 5 OBJECTIVE BP 133/70 (BP Location: Right arm, Patient Position: Sitting, Cuff Size: Small) Pulse 78 Temp 36.8 ??C (Temporal) Wt 96 kg BMI 29.14 kg/m?? WEIGHT August 17, 2020: 101 kg August 29, 2020: 99.5 kg September 05, 2020: 96.4 kg September 13, 2020: 96 PHYSICAL EXAM General: Alert and oriented in no apparent distress. ENT: No evidence of thrush. Erythema in the posterior oral cavity. Skin: Moderate erythema/hyperpigmentation of the neck. No desquamation. 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 He was able to increase his nutritional intake and only lost 0.4 kg this past week. He likes Scandi[employer]akes and is also making his own smoothies and shakes. He was encouraged to continue with this to maintain his weight. We discussed the use ofTylenol and/or Magic Mouthwash for his throat pain. He is receiving IV fluids weekly on Fridays through Medical Oncology. He will contact us if he develops worsening pain or with other questions or concerns. He will continue with radiation treatment as planned. Signed by: Dione Mobley P.A.-C., M.S. 09/13/2020 10:51 AM TIE IN MACHINE OPERATOR IN MACHINE OPERATOR Associated attestation - Serena Berger M.D. - 09/13/2020 11:13 AM TIE IN MACHINE OPERATOR I saw and evaluated the patient and participated in the robledo portions of the service. I reviewed the documentation of Ms. Dione Mobley PA-C, and agree with the findings and plan. The patient appears well on exam. We will continue with radiation as planned and monitor weekly. Serena Berger M.D., 09/13/2020 documented in this encounter Plan of Treatment Upcoming Encounters Date Type Specialty Care Team Description 04/23/2022 Appointment Radiation Oncology Fara Berger M.D. 200 [place], [place] [phone] (Wo rk) Scheduled Orders Name Type Priority Associated Diagnoses Order S chedule Management Visit Radiation Oncology Routine Malignant Neoplasm Once for 1 Of Tongue Base (HCC) Occurre nces starting 09/13/2020 unti l 09/13/2020 documented as of this encounter Visit Diagnoses Diagnosis Malignant Neoplasm Of Tongue Base (HCC) documented in this encounter
--- OUTSIDE RECORDS SUMMARY | 2022-03-12 04:18 | XMS_ITS | Encounter Summary ---
:1950 Author Organization [facility] Address [address] [place] [address] Care Team Providers Name Role Phone Unavailable Primary Care Provider Unavailable Reason for Visit Radiation Therapy (Routine) - Closed Specialty Diagnoses / Procedures Referred By Contact Refer red To Contact Diagnoses Malignant Neoplasm Of Tongue Base (HCC) Serena Berger M.D. [facility] Procedures Prior Auth Rad Tx [place] IMRT COMPLEX [address] [place], [place] [address] Referral ID Status Reason Start Date Expiration Date Visits Requ ested Visits Authorized [id number] Closed 08/13/2020 11/11/2020 35 35 Encounter Details Date Type Department Care Team Description 09/03/2020 Hospital Encounter Department of Radiation Chetna Berger I., [place] [address] [place] [address] [phone] Social History Tobacco Use Types Packs/Day Years [...] tablet OMEGA-3 FATTY Take by mouth. 0 [id number] ORAL prochlorperazine 10 mg every 8 0 [...] 04/23/2022 Appointment Radiation Oncology Fara Berger M.D. [address] [place] [address] [phone] (Wo rk) documented as of this encounter Visit Diagnoses Not on filedocumented in this encounter
--- OUTSIDE RECORDS SUMMARY | 2022-03-12 04:18 | XMS_ITS | Encounter Summary ---
:1950 Author Organization [facility] Address [address] [place] [address] Care Team Providers Name Role Phone Unavailable Primary Care Provider Unavailable Reason for Visit Radiation Therapy (Routine) - Closed Specialty Diagnoses / Procedures Referred By Contact Refer red To Contact Diagnoses Malignant Neoplasm Of Tongue Base (HCC) Serena Berger M.D. [facility] Procedures Prior Auth Rad Tx [place] IMRT COMPLEX [address] [place], [place] [address] Referral ID Status Reason Start Date Expiration Date Visits Requ ested Visits Authorized [id number] Closed 08/13/2020 11/11/2020 35 35 Encounter Details Date Type Department Care Team Description 09/13/2020 Hospital Encounter Department of Radiation Chetna Berger I., [place]cology in [place] [address] [place] [phone] Social History Tobacco Use Types Packs/Day Years [...] tablet OMEGA-3 FATTY Take by mouth. 0 [id number] ORAL prochlorperazine 10 mg every 8 0 [...] Radiation Oncology Fara Berger M.D. [address] [place] [address] [phone] (Wo rk) documented as of this encounter Visit Diagnoses Not on filedocumented in this encounter
--- OUTSIDE RECORDS SUMMARY | 2022-03-12 04:18 | XMS_ITS | Encounter Summary ---
:1950 Author Organization [facility] Address [address] [place] [address] Care Team Providers Name Role Phone Unavailable Primary Care Provider Unavailable Reason for Referral Radiation Therapy (Routine) - Canceled Specialty Diagnoses / Procedures Referred By Contact Refer red To Contact Diagnoses Malignant Neoplasm Of Tongue Base (HCC) Serena Berger M.D. [facility] Procedures Verification/Re-Sim [address] [place] [address] Referral ID Status Reason Start Date Expiration Date Visits V isits Requested Authorized [id number] Canceled 09/07/2020 09/07/2021 1 1 RVISOR ELECTRIC Reason for Visit Radiation Therapy (Routine) - Canceled Specialty Diagnoses / Procedures Referred By Contact Refer red To Contact Diagnoses Malignant Neoplasm Of Tongue Base (HCC) Serena Berger M.D. [facility] Procedures Verification/Re-Sim [address] [place] [address] Referral ID Status Reason Start Date Expiration Date Visits V isits Requested Authorized [id number] Canceled 09/07/2020 09/07/2021 1 1 Encounter Details Date Type Department Care Team Description 09/07/2020 Hospital Encounter Department of Serena Berger Neoplasm Radiation Oncology [facility] Of Tongue Base (HCC) in [address] [facility] [address] [place], [place] [phone] (Work) [phone] Social History Tobacco Use Types Packs/Day Years [...] tablet OMEGA-3 FATTY Take by mouth. 0 [id number] ORAL prochlorperazine 10 mg every 8 0 [...] Radiation Oncology Fara Berger M.D. [address] [place], [place] [phone] (Wo rk) documented as of this encounter Visit Diagnoses Diagnosis Malignant Neoplasm Of Tongue Base (HCC) documented in this encounter
--- OUTSIDE RECORDS SUMMARY | 2022-03-12 04:18 | XMS_ITS | Encounter Summary ---
:1950 Author Organization [facility] Address [address] [place] [address] Care Team Providers Name Role Phone Unavailable Primary Care Provider Unavailable Reason for Visit Radiation Therapy (Routine) - Closed Specialty Diagnoses / Procedures Referred By Contact Refer red To Contact Diagnoses Malignant Neoplasm Of Tongue Base (HCC) Serena Berger M.D. [facility] Procedures Prior Auth Rad Tx [place] IMRT COMPLEX [address] [place], [place] [address] Referral ID Status Reason Start Date Expiration Date Visits Requ ested Visits Authorized [id number] Closed 08/13/2020 11/11/2020 35 35 Encounter Details Date Type Department Care Team Description 09/18/2020 Hospital Encounter Department of Radiation Chetna Berger I., Oncology in [place] [address] [place] [address] [phone] Social History Tobacco Use Types Packs/Day Years [...] tablet OMEGA-3 FATTY Take by mouth. 0 [id number] ORAL prochlorperazine 10 mg every 8 0 [...] Radiation Oncology Fara Berger M.D. [address] [place] [address] [phone] (Wo rk) documented as of this encounter Visit Diagnoses Not on filedocumented in this encounter
--- OUTSIDE RECORDS SUMMARY | 2022-03-12 04:18 | XMS_ITS | Encounter Summary ---
:1950 Author Organization [facility] Address [address] [place] [address] Care Team Providers Name Role Phone Unavailable Primary Care Provider Unavailable Reason for Referral Radiation Therapy (Routine) - Closed Specialty Diagnoses / Procedures Referred By Contact Refer red To Contact Diagnoses Malignant Neoplasm Of Tongue Base (HCC) Serena Berger M.D. [facility] Procedures Verification/Re-Sim [address] [place] [address] Referral ID Status Reason Start Date Expiration Date Visits Requ ested Visits Authorized [id number] Closed 09/19/2020 09/19/2021 1 1 ALT HEATER TENDER Reason for Visit Radiation Therapy (Routine) - Closed Specialty Diagnoses / Procedures Referred By Contact Refer red To Contact Diagnoses Malignant Neoplasm Of Tongue Base (HCC) Serena Berger M.D. [facility] Procedures Verification/Re-Sim [address] [place] [address] Referral ID Status Reason Start Date Expiration Date Visits Requ ested Visits Authorized [id number] Closed 09/19/2020 09/19/2021 1 1 Encounter Details Date Type Department Care Team Description 09/20/2020 Hospital Encounter Department of Serena Berger Neoplasm Radiation Oncology Hardik Barber Of Tongue Base (HCC) in [place] [address] [address] [place], [place] [address] [facility] [address] [place], [place] [phone] (Work) [phone] Social History Tobacco Use Types Packs/Day Years [...] tablet OMEGA-3 FATTY Take by mouth. 0 [id number] ORAL prochlorperazine 10 mg every 8 0 [...] before meals. documented as of this encounter Procedure Notes Waleska Graham, RTT - 09/20/2020 10:15 AM CSTAssociated Order(s): Verification/Re-Sim Pre-Procedure Diagnose(s): Malignant Neoplasm Of Tongue Base (HCC) Post-Procedure Diagnose(s): Malignant Neoplasm Of Tongue Base (HCC) Verification/Re-Sim Date/Time: 09/20/2020 10:41 AM Performed by: Serena Berger M.D. Authorized by: Serena Berger M.D. Simulation was performed under physician supervision based on physician order in preparation for radiation therapy. Physician was immediately available to provide assistance and direction throughout the procedure. Written consent for treatment was completed or confirmed. The patient was appropriately identified and placed in the treatment position using the necessary immobilization to ensure a reproducible treatment position. Reference lea were placed to facilitate marking of isocenter. Area scanned:Neck Contrast used for the simulation procedure: None Patient position: Head first supine Custom immobilization: Same mask and klarity used for resim Motion management: None Bolus: No CT guidance: Following positioning of the patient, a series of slices was obtained to be utilized intreatment planning. CT images were transferred to the Eclipse treatment planning system, after a reference isocenter was determined and marked. Segmentation and treatment planning will take place priorto treatment delivery. Patient set up and imaging was appropriate and completed without incident. [facility] use:No ALT HEATER TENDER documented in this encounter Plan of Treatment Upcoming Encounters Date Type Specialty Care Team Description 04/23/2022 Appointment Radiation Oncology Fara Berger M.D. [address] [place], [place] [phone] (Wo rk) documented as of this encounter Procedures Procedure Name Priority Date/Time Associated Diagnosis Comme nts VERIFICATION/RE-SIM Routine 09/20/2020 10:15 AM Malignant Neop lasm Results for this ASPHALT HEATER TENDER Of Tongue Base (HCC) procedu re are in the results section. documented in this encounter Results Verification/Re-Sim (09/20/2020 10:15 AM ASPHALT HEATER TENDER) Specimen (Source) Anatomical Location Collection Method / Collectio n Time Received Time / Laterality Volume Narrative [facility] - 09/20/2020 10:15 AM ASPHALT HEATER TENDER Waleska Graham RTT ? 09/20/2020 10:43 AM Verification/Re-Sim Date/Time: 09/20/2020 10:41 AM Performed by: Serena Berger M.D. Authorized by: Serena Berger M.D. Serena Berger M.D. RADIATION ONCOLOGY ORDERABLE S Performing Organization Address City/State/ZIP Code Phon e Number [facility] [place] [facility] documented in this encounter Visit Diagnoses Diagnosis Malignant Neoplasm Of Tongue Base (HCC) documented in this encounter
--- OUTSIDE RECORDS SUMMARY | 2022-03-12 04:19 | XMS_ITS | Encounter Summary ---
:1950 Author Organization [facility] Address [address] [place] [address] Care Team Providers Name Role Phone Unavailable Primary Care Provider Unavailable Reason for Visit Radiation Therapy (Routine) - Closed Specialty Diagnoses / Procedures Referred By Contact Refer red To Contact Diagnoses Malignant Neoplasm Of Tongue Base (HCC) Serena Berger M.D. [facility] Procedures Prior Auth Rad Tx RI IMRT COMPLEX [address] [place], [place] [address] Referral ID Status Reason Start Date Expiration Date Visits Requ ested Visits Authorized [id number] Closed 08/13/2020 11/11/2020 35 35 Encounter Details Date Type Department Care Team Description 08/23/2020 Hospital Encounter Department of Radiation Chetna Berger I., [place]cology [place] [address] [place] [phone] Social History Tobacco Use Types Packs/Day Years [...] tablet OMEGA-3 FATTY Take by mouth. 0 [id number] ORAL prochlorperazine 10 mg every 8 0 [...] 04/23/2022 Appointment Radiation Oncology Fara Berger M.D. [address] [place] [phone] (Wo rk) documented as of this encounter Visit Diagnoses Not on filedocumented in this encounter Additional Health Concerns Infection Onset Date Last Indicated Resolved Time COVID19 Pending 08/23/2020 08/23/2020 08/24/2020 5:49 AM ERGONOMICS ENGINEER documented as of this encounter
--- OUTSIDE RECORDS SUMMARY | 2022-03-12 04:19 | XMS_ITS | Encounter Summary ---
:1950 Author Organization [facility] Address [address] [place] [address] Care Team Providers Name Role Phone Unavailable Primary Care Provider Unavailable Reason for Referral Specialty Diagnoses / Procedures Referred By Contact Refer red To Contact Serena Berger M.D. [facility] Region [address] [place] [phone] Referral ID Status Reason Start Date Expiration Date Visits Requ ested Visits Authorized [employer]IST[employer] Encounter Details Date Type Department Care Team Description 08/17/2020 - Hospital Encounter Department of Fara Berger M.D. [address] [place] [phone] Malignant Neoplasm 08/21/2020 Radiation Oncology Yuliana Shahid R.N. [address] [place] [phone] Of Tongue Base in [facility] ([facility] [place] [address] [place] [phone] Social History Tobacco Use Types Packs/Day Years Used Date Smoking Tobacco: Never Assessed Sex Assigned at Date Recorded Not on file documented as of this encounter Last Filed Vital Signs Vital Sign Reading Time Taken Comments Blood Pressure - - Pulse - - Temperature - - Respiratory Rate - - Oxygen Saturation - - Inhaled Oxygen Concentration - - Weight 101 kg (222 lb 10.6 oz) 08/17/2020 3:36 PM PROCUREMENT PROFESSIONAL LOGISTICS Height - - Body Mass Index 30.66 08/07/2020 9:56 AM PROCUREMENT PROFESSIONAL LOGISTICS documented in this encounter Medications at Time [...] tablet OMEGA-3 FATTY Take by mouth. 0 [id number] ORAL prochlorperazine 10 mg every 8 0 [...] Appointment Radiation Oncology Fara Berger M.D. [address] [place] [phone] (Wo rk) Scheduled Referrals Name Type Priority Associated Order Schedule Diagnoses Radiation Oncology Outpatient Referral Routine Malignant Neopl asm Once for 1 - Nurse education Of Tongue Base Occurren buck starting visit (clinic) (HCC) 08/17/2020 un til 08/17/2020 documented as of this encounter Visit Diagnoses Diagnosis Malignant Neoplasm Of Tongue Base (HCC) documented in this encounter Additional Health Concerns Infection Onset Date Last Indicated Resolved Time COVID19 Pending 08/16/2020 08/16/2020 08/17/2020 3:28 PM PROCUREMENT PROFESSIONAL LOGISTICS documented as of this encounter
--- OUTSIDE RECORDS SUMMARY | 2022-03-12 04:19 | XMS_ITS | Encounter Summary ---
:1950 Author Organization [facility] Address [address] [place] [address] Care Team Providers Name Role Phone Unavailable Primary Care Provider Unavailable Reason for Visit Radiation Therapy (Routine) - Closed Specialty Diagnoses / Procedures Referred By Contact Refer red To Contact Diagnoses Malignant Neoplasm Of Tongue Base (HCC) Serena Berger M.D. [facility] Procedures Initial Rad Onc Treatment Planning CT Simulation [address] [place], [place] [phone] Referral ID Status Reason Start Date Expiration Date Visits Requ ested Visits Authorized [id number] Closed 08/01/2020 08/01/2021 1 1 Encounter Details Date Type Department Care Team Description 08/07/2020 - Hospital Encounter Department of Fara Berger M.D. [address] [place] [phone] Malignant Neoplasm 08/08/2020 Radiation Oncology Yuliana Shahid, RFabiana [address] [place] [phone] Of Tongue Base in [place], (HCC) (Primar y Dx) [place] [address] [place] [phone] Social History Tobacco Use Types Packs/Day Years Used Date Smoking Tobacco: Never Assessed Sex Assigned at Date Recorded Not on file documented as of this encounter Last Filed Vital Signs Vital Sign Reading Time Taken Comments Blood Pressure - - Pulse - - Temperature - - Respiratory Rate - - Oxygen Saturation - - Inhaled Oxygen Concentration - - Weight 102 kg (225 lb 1.4 oz) 08/07/2020 12:43 PM CHIEF CLINICAL DIETITIAN Height - - Body Mass Index 30.99 08/07/2020 9:56 AM CHIEF CLINICAL DIETITIAN documented in this encounter Medications at Time [...] mouth. 0 10 mcg/mL (400 Unit/mL) drops multivitamin chewable tablet Chew 1 tablet 0 daily. OMEGA-3 FATTY [id number] Take by mouth. 0 ORAL prochlorperazine (COMPAZINE) 10 mg every 8 0 01/2021 10 mg tablet (eight) hours as needed for nausea or vomiting. documented as of this encounter Progress Notes Yuliana Shahid RKrystian. - 08/07/2020 12:00 PM CST Has patient received IV contrast in the past? Yes History of adverse reaction to the contrast? no History of heart problems (CHF)? No History of kidney problems (current or history of dialysis, single kidney, kidney transplant)? no History of asthma? No Current inhaler use? no Lung assessment. Diminished slightly left side History of diabetes? No Taking Metformin? no If yes, written instructions given: Instructions for taking metformin after an injection of iodinated contrast material, [id number] Central Line: No Blood Return Verified: Yes Procedural pause conducted by RN and RTT staff to verify: correct patient identity, correct IV contrast protocol and delay time Patient tolerated the procedure well. Discharge instructions were given. Bottle of water provided to patient. F CLINICAL DIETITIAN documented in this encounter Plan of Treatment Upcoming Encounters Date Type Specialty Care Team Description 04/23/2022 Appointment Radiation Oncology Fara Berger M.D. [address] [place] [phone] (Wo nate) documented as of this encounter Visit Diagnoses Diagnosis Malignant Neoplasm Of Tongue Base (HCC) - Primary documented in this encounter Administered Medications Inactive Administered Medications - up to 3 most recent administrations Medication Order MAR Action Action Date Dose Rate Site iohexoL 300 mg iodine/mL solution Given 08/07/2020 1:11 PM CHIEF CLINICAL DIETITIAN 1 00 mL 100 mL (OMNIPAQUE) 100 mL, intravenous, Once in imaging, contrast, CT sim, Starting on 08/07/20 at 1318, For 1 dose, If administered oral then dilute in 900 mL water NaCl 0.9% infusion New Bag 08/07/2020 1:12 PM CHIEF CLINICAL DIETITIAN 250 mL/hr 250 mL/hr 10-250 mL/hr, intravenous, As needed, Post Medications (Hazardous/Low Fluid Volume), Starting on 08/07/20 at 1318, Infuse at the same rate as the medication until tubing cleared of medication, then discard. sodium chloride 0.9 % injection 10 mL Given 08/07/2020 1:20 PM CHIEF CLINICAL DIETITIAN 10 mL 10 mL, intravenous, As needed, line care, Peripheral Intravenous Catheter and Rapid Infusion Catheter, Starting on 08/07/20 at 1318, Prior to blood sampling, post blood transfusion or post blood sampling. Given 08/07/2020 1:09 PM CHIEF CLINICAL DIETITIAN 10 mL documented in this encounter
--- OUTSIDE RECORDS SUMMARY | 2022-03-12 04:19 | XMS_ITS | Encounter Summary ---
:1950 Author Organization [facility] Address [address] [place] [address] Care Team Providers Name Role Phone Unavailable Primary Care Provider Unavailable Reason for Visit Radiation Therapy (Routine) - Closed Specialty Diagnoses / Procedures Referred By Contact Refer red To Contact Diagnoses Malignant Neoplasm Of Tongue Base (HCC) Serena Berger M.D. [facility] Procedures Prior Auth Rad Tx [place] IMRT COMPLEX [address] [place], [place] [address] Referral ID Status Reason Start Date Expiration Date Visits Requ ested Visits Authorized [id number] Closed 08/13/2020 11/11/2020 35 35 Encounter Details Date Type Department Care Team Description 08/22/2020 Hospital Encounter Department of Radiation Chetna Berger I., [place]cology [place] [address] [place] [phone] Social History Tobacco Use Types Packs/Day Years [...] tablet OMEGA-3 FATTY Take by mouth. 0 [id number] ORAL prochlorperazine 10 mg every 8 0 [...] 04/23/2022 Appointment Radiation Oncology Fara Berger M.D. [address] [place] [phone] (Wo rk) documented as of this encounter Visit Diagnoses Not on filedocumented in this encounter
--- OUTSIDE RECORDS SUMMARY | 2022-03-12 04:19 | XMS_ITS | Encounter Summary ---
:1950 Author Organization [facility] Address [address] [place] [address] Care Team Providers Name Role Phone Unavailable Primary Care Provider Unavailable Reason for Referral Radiation Therapy (Routine) - Canceled Specialty Diagnoses / Procedures Referred By Contact Refer red To Contact Diagnoses Malignant Neoplasm Of Tongue Base (HCC) Serena Berger M.D. [facility] Procedures Management Visit [address] [place] [phone] Referral ID Status Reason Start Date Expiration Date Visits V isits Requested Authorized [id number] Canceled 08/01/2020 08/01/2021 1 1 N PICKER Reason for Visit Radiation Therapy (Routine) - Canceled Specialty Diagnoses / Procedures Referred By Contact Refer red To Contact Diagnoses Malignant Neoplasm Of Tongue Base (HCC) Serena Berger M.D. [facility] Procedures Management Visit [address] [place] [phone] Referral ID Status Reason Start Date Expiration Date Visits V isits Requested Authorized [id number] Canceled 08/01/2020 08/01/2021 1 1 Encounter Details Date Type Department Care Team Description 08/17/2020 Hospital Encounter Department of Sam Foley Neoplasm Radiation Oncology Hardik Ortiz Of Tongue Base (HCC) in [place], [address] [place] [address] [facility] [address] [place], [place] [phone] (Work) [phone] Social History Tobacco Use Types Packs/Day Years Used Date Smoking Tobacco: Never Assessed Sex Assigned at Date Recorded Not on file documented as of this encounter Last Filed Vital Signs Vital Sign Reading Time Taken Comments Blood Pressure 142/81 08/17/2020 10:49 AM BRAIN PICKER Pulse 69 08/17/2020 10:49 AM BRAIN PICKER Temperature 36.6 ??C (97.9 ??F) 08/17/2020 10:49 AM BRAIN PICKER Respiratory Rate - - Oxygen Saturation - - Inhaled Oxygen Concentration - - Weight 101 kg (222 lb 10.6 oz) 08/17/2020 10:49 AM BRAIN PICKER Height - - Body Mass Index 30.66 08/07/2020 9:56 AM BRAIN PICKER documented in this encounter Medications at Time [...] tablet OMEGA-3 FATTY Take by mouth. 0 [id number] ORAL aspirin [address] tablet TAKE ONE TABLET BY 0 05/03 MOUTH LORazepam (ATIVAN) 0.5 mg 0.5 mg. 0 08/15/2020 tablet prochlorperazine 10 mg every 8 0 [...] documented as of this encounter Progress Notes Sam Foley M.D. - 08/17/2020 11:30 AM CST SUBJECTIVE REASON FOR VISIT Evaluation for side effects while receiving radiation treatment for 1. Malignant Neoplasm Of Tongue Base (HCC) SUPERVISED BY: Sam Foley M.D. ([id number]) HISTORY OF PRESENT ILLNESS Antonio Mancini is a 70 y.o. male with p16 left base of tongue cancer. He is now undergoing definitive radiotherapy. He is scheduled for 3 doses of concurrent cisplatin under the care of Dr. Méndez. Chemotherapy was delayed until August 19, 2020 due to potential COVID exposure and needing repeat COVID testing. Treatment Course: 1x L BOT, necks Plan ID Fractions Dose / Fraction (cGy) Dose Treated (cGy) Dose Planned (cGy) First Treatment Last Treatment Elapsed Days F1 H&N_BOT [phone] 08/13/2020 08/17/2020 4 Course Summary 08/13/2020 08/17/2020 4 The patient was seen and examined today with Dr. Foley. The patient reports 3-4 out of 10 left base of tongue pain. He takes 1000 mg of Extra Strength Tylenol every 8 hours. He denies fevers, chills or any new symptoms, side effects from treatment or concerns. PATIENT REPORTED SYMPTOM SCREEN FATIGUE (Scale: 0 = no fatigue; 10 = worst fatigue you can imagine): 2-3 PAIN (Scale: 0 = no pain; 10 = worst pain you can imagine): 3-4 OVERALL QUALITY OF LIFE (Scale: 0 = as bad as can be; 10 = as good as can be): 8 OBJECTIVE BP 142/81 (BP Location: Left arm, Patient Position: Sitting, Cuff Size: Small) Pulse 69 Temp 36.6 ??C (Temporal) Wt 101 kg BMI 30.66 kg/m?? PHYSICAL EXAM General: Alert and oriented in no apparent distress. 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 Cisplatin therapy to be initiated on August 19, 2020 ?? The patient is tolerating radiation treatment well overall. Nurse education visit was completed today. Patient completed COVID testing at [facility] yesterday and results are pending. His retested yesterday and was negative. Patient reports that he and his remain asymptomatic. He will contact us with any questions or concerns. We will continue with radiation treatment as planned. ?? Signed by: Yuliana Shahid R.N. 08/17/2020 11:44 AM BRAIN PICKER I saw and evaluated the patient and participated in the robledo portions of the service. I reviewed the documentation of Yuliana Shahid R.N. and agree with the findings and plan. The patient appears well onexam. His repeat COVID testing was negative. CHRISTY López contacted him with these results byphone after I saw him. He will continue with treatment as planned. Signed by: Sma Foley M.D. 08/17/2020 5:08 PM BRAIN PICKER [facility] [address] [place] [address] N PICKER documented in this encounter Miscellaneous Notes Addendum Note - Vanessa Samuel - 08/17/2020 11:30 AM BRAIN PICKER Encounter addended by: Vanessa Samuel on: 08/20/2020 8:10 AM Actions taken: Letter saved N PICKER documented in this encounter Plan of Treatment Upcoming Encounters Date Type Specialty Care Team Description 04/23/2022 Appointment Radiation Oncology Fara Berger M.D. [address] [place] [phone] (Wo rk) Scheduled Orders Name Type Priority Associated Diagnoses Order S chedule Management Visit Radiation Oncology Routine Malignant Neoplasm Once for 1 Of Tongue Base (HCC) Occurre nces starting 08/17/2020 unti l 08/17/2020 documented as of this encounter Visit Diagnoses Diagnosis Malignant Neoplasm Of Tongue Base (HCC) documented in this encounter Additional Health Concerns Infection Onset Date Last Indicated Resolved Time COVID19 Pending 08/16/2020 08/16/2020 08/17/2020 3:28 PM BRAIN PICKER documented as of this encounter
--- OUTSIDE RECORDS SUMMARY | 2022-03-12 04:19 | XMS_ITS | Encounter Summary ---
:1950 Author Organization [facility] Address [address] [place] [address] Care Team Providers Name Role Phone Unavailable Primary Care Provider Unavailable Reason for Visit Radiation Therapy (Routine) - Closed Specialty Diagnoses / Procedures Referred By Contact Refer red To Contact Diagnoses Malignant Neoplasm Of Tongue Base (HCC) Serena Berger M.D. [facility] Procedures Prior Auth Rad Tx [place] IMRT COMPLEX [address] [place], [place] [phone] Referral ID Status Reason Start Date Expiration Date Visits Requ ested Visits Authorized [id number] Closed 08/13/2020 11/11/2020 35 35 Encounter Details Date Type Department Care Team Description 08/29/2020 Hospital Encounter Department of Radiation Chetna Berger I., Oncology in [place] [address] [place] [phone] Social History Tobacco Use Types Packs/Day Years [...] tablet OMEGA-3 FATTY Take by mouth. 0 [id number] ORAL prochlorperazine 10 mg every 8 0 [...] 04/23/2022 Appointment Radiation Oncology Fara Berger M.D. [address] [place] [phone] (Wo rk) documented as of this encounter Visit Diagnoses Not on filedocumented in this encounter
--- OUTSIDE RECORDS SUMMARY | 2022-03-12 04:19 | XMS_ITS | Encounter Summary ---
:1950 Author Organization [facility] Address [address] [place] [address] Care Team Providers Name Role Phone Unavailable Primary Care Provider Unavailable Reason for Referral Radiation Therapy (Routine) - Canceled Specialty Diagnoses / Procedures Referred By Contact Refer red To Contact Diagnoses Malignant Neoplasm Of Tongue Base (HCC) Serena Berger M.D. [facility] Procedures Management Visit [address] [place] [address] [phone] Referral ID Status Reason Start Date Expiration Date Visits V isits Requested Authorized [id number] Canceled 08/01/2020 08/01/2021 1 1 L CLERK Reason for Visit Radiation Therapy (Routine) - Canceled Specialty Diagnoses / Procedures Referred By Contact Refer red To Contact Diagnoses Malignant Neoplasm Of Tongue Base (HCC) Serena Berger M.D. [facility] Procedures Management Visit [address] [place] [address] [phone] Referral ID Status Reason Start Date Expiration Date Visits V isikia Requested Authorized [id number] Canceled 08/01/2020 08/01/2021 1 1 Encounter Details Date Type Department Care Team Description 08/22/2020 Hospital Encounter Department of Fara Berger M.D. [address] [place] [phone] Malignant Neoplasm Radiation Oncology Sam Foley M.D. [address] [place] [phone] Of Tongue Base (HCC) in [place], [place] [address] [place] [address] Social History Tobacco Use Types Packs/Day Years Used Date Smoking Tobacco: Never Assessed Sex Assigned at Date Recorded Not on file documented as of this encounter Last Filed Vital Signs Vital Sign Reading Time Taken Comments Blood Pressure 183/79 08/22/2020 9:31 AM MOTEL CLERK Pulse 64 08/22/2020 9:31 AM MOTEL CLERK Temperature 37.1 ??C (98.7 ??F) 08/22/2020 9:31 AM MOTEL CLERK Respiratory Rate - - Oxygen Saturation - - Inhaled Oxygen Concentration - - Weight 104 kg (228 lb 13.4 oz) 08/22/2020 9:31 AM MOTEL CLERK Height - - Body Mass Index 31.51 08/07/2020 9:56 AM MOTEL CLERK documented in this encounter Medications at Time [...] tablet OMEGA-3 FATTY Take by mouth. 0 [id number] ORAL prochlorperazine 10 mg every 8 0 [...] encounter Progress Notes Sam Foley M.D. - 08/22/2020 9:30 AM CST SUBJECTIVE REASON FOR VISIT Evaluation for side effects while receiving radiation treatment for 1. Malignant Neoplasm Of Tongue Base (HCC) SUPERVISED BY: Sam Foley M.D. ([phone]) HISTORY OF PRESENT ILLNESS Antonio Mancini is a 70 y.o. male with p16 left base of tongue cancer. He is now undergoing definitive radiotherapy. He is scheduled for 3 doses of concurrent cisplatin under the care of Dr. Méndez. Chemotherapy was delayed until August 21, 2020 due to potential COVID exposure and needing repeat COVID testing. Treatment Course: 1x L BOT, necks Plan ID Fractions Dose / Fraction (cGy) Dose Treated (cGy) Dose Planned (cGy) First Treatment Last Treatment Elapsed Days F1 H&N_BOT 200 1600 7000 08/13/2020 08/22/2020 9 Course Summary 08/13/2020 08/22/2020 9 The patient was seen and examined today with Dr. Foley. The patient reports 3 out of 10 to the left head/neck region and that this has improved since receiving chemotherapy. He notes improvement in swelling to the left neck region as well. He takes 1000 mg of Extra Strength Tylenol. He denies fevers, chills, shortness of breath, chest pain. Cough is minimal. He denies oral cavity or throat pain. He is taking in a general based diet with no issues. Dry mouth and phlegm is being managed with baking soda and salt rinses. He denies constipation. He is completing jaw exercises. He has start started lotion application yet. LABS August 21, 2020: WBC 5.90; Hgb 4.14; Plt 226, 000; ANC 4.52 PATIENT REPORTED SYMPTOM SCREEN FATIGUE (Scale: 0 = no fatigue; 10 = worst fatigue you can imagine): 3 PAIN (Scale: 0 = no pain; 10 = worst pain you can imagine): 3 OVERALL QUALITY OF LIFE (Scale: 0 = as bad as can be; 10 = as good as can be): 8 OBJECTIVE BP (!) 183/79 (BP Location: Right arm, Patient Position: Sitting, Cuff Size: Regular) Pulse 64 Temp 37.1 ??C (Temporal) Wt 104 kg BMI 31.51 kg/m?? PHYSICAL EXAM General: Alert and oriented in no apparent distress. ENT: no signs of injection or mucositis noted with in the oral cavity. Skin: mild erythema to the mid facial region. 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 Cisplatin therapy to be initiated on August 19, 2020 ?? The patient is tolerating radiation treatment well overall. He will start using moisturizing lotion to the treatment field area. He will contact us with any questions or concerns. We will continue withradiation treatment as planned. ?? Signed by: Yuliana Shahid R.N. 08/22/2020 11:26 AM MOTEL CLERK I saw and evaluated the patient and participated in the robledo portions of the service. I reviewed the documentation of Yuliana Shahid R.N. and agree with the findings and plan. The patient appears well onexam. He will continue with treatment as planned. Signed by: Sam Foley M.D. 08/22/2020 3:09 PM MOTEL CLERK [facility] [address] [place] [address] L CLERK documented in this encounter Plan of Treatment Upcoming Encounters Date Type Specialty Care Team Description 04/23/2022 Appointment Radiation Oncology Fara Berger M.D. [address] [place], [place] [phone] (Wo rk) Scheduled Orders Name Type Priority Associated Diagnoses Order S chedule Management Visit Radiation Oncology Routine Malignant Neoplasm Once for 1 Of Tongue Base (HCC) Occurre nces starting 08/22/2020 unti l 08/22/2020 documented as of this encounter Visit Diagnoses Diagnosis Malignant Neoplasm Of Tongue Base (HCC) documented in this encounter
--- OUTSIDE RECORDS SUMMARY | 2022-03-12 04:19 | XMS_ITS | Encounter Summary ---
:1950 Author Organization [facility] Address [address] [place] [address] Care Team Providers Name Role Phone Unavailable Primary Care Provider Unavailable Reason for Visit Radiation Therapy (Routine) - Closed Specialty Diagnoses / Procedures Referred By Contact Refer red To Contact Diagnoses Malignant Neoplasm Of Tongue Base (HCC) Serena Berger M.D. [facility] Procedures Prior Auth Rad Tx AK IMRT COMPLEX [address] [place], [place] [phone] Referral ID Status Reason Start Date Expiration Date Visits Requ ested Visits Authorized [id number] Closed 08/13/2020 11/11/2020 35 35 Encounter Details Date Type Department Care Team Description 08/15/2020 Hospital Encounter Department of Radiation Chetna Berger I., Oncology [place] [address] [place] [phone] Social History Tobacco Use Types Packs/Day Years [...] tablet OMEGA-3 FATTY Take by mouth. 0 TAOLE-OMA-SMS ORAL prochlorperazine 10 mg every 8 0 [...] 04/23/2022 Appointment Radiation Oncology Fara Berger M.D. [address] [place] [phone] (Wo rk) documented as of this encounter Visit Diagnoses Not on filedocumented in this encounter
--- OUTSIDE RECORDS SUMMARY | 2022-03-12 04:19 | XMS_ITS | Encounter Summary ---
:1950 Author Organization [facility] Address [address] [place] [address] Care Team Providers Name Role Phone Unavailable Primary Care Provider Unavailable Reason for Referral Radiation Therapy (Routine) - Closed Specialty Diagnoses / Procedures Referred By Contact Refer red To Contact Diagnoses Malignant Neoplasm Of Tongue Base (HCC) Serena Berger M.D. [facility] Procedures Initial Rad Onc Treatment Planning CT Simulation [address] [place] [address] Referral ID Status Reason Start Date Expiration Date Visits Requ ested Visits Authorized [id number] Closed 08/01/2020 08/01/2021 1 1 RESTORATION SERVICE CLEANER Reason for Visit Radiation Therapy (Routine) - Closed Specialty Diagnoses / Procedures Referred By Contact Refer red To Contact Diagnoses Malignant Neoplasm Of Tongue Base (HCC) Serena Berger M.D. [facility] Procedures Initial Rad Onc Treatment Planning CT Simulation 200 [place], [place] [phone] Referral ID Status Reason Start Date Expiration Date Visits Requ ested Visits Authorized [id number] Closed 08/01/2020 08/01/2021 1 1 Encounter Details Date Type Department Care Team Description 08/07/2020 Hospital Encounter Department of Serena Berger Neoplasm Radiation Oncology Hardik Barber Of Tongue Base (HCC) in [place], [facility] [address] [place], [place] [address] [facility] [address] [place], [place] [phone] (Work) [phone] Social History Tobacco Use Types Packs/Day Years [...] Chew 1 tablet 0 daily. OMEGA-3 FATTY [id number] Take by mouth. 0 ORAL documented as of this encounter Procedure Notes Su Simons, RTT - 08/07/2020 12:30 PM CST Procedures Simulation was performed under physician supervision based [...] placed to facilitate marking of isocenter. Area scanned:Head and Neck Contrast used for the simulation procedure: IV Patient position:head first supine Custom immobilization: 5 point mask, Custom neck rest, Custom mouth piece and Knee Cushion Motion management: None Bolus: No CT guidance: Following positioning of the patient, a series of slices was obtained to be utilized intreatment planning. CT images were transferred to the IWT treatment planning system, after a reference isocenter was determined and marked. Segmentation and treatment planning will take place priorto treatment delivery. Patient set up and imaging was appropriate and completed without incident. RESTORATION SERVICE CLEANER documented in this encounter Plan of Treatment Upcoming Encounters Date Type Specialty Care Team Description 04/23/2022 Appointment Radiation Oncology Fara Berger M.D. [address] [place] [phone] (Wo rk) documented as of this encounter Procedures Procedure Name Priority Date/Time Associated Diagnosis Comme nts INITIAL RAD ONC Routine 08/07/2020 12:18 PM Malignant Neoplasm Of TREATMENT PLANNING CT HOME RESTORATION SERVICE CLEANER Tongue Base (HCC) SIMULATION documented in this encounter Results Initial Rad Onc Treatment Planning CT Simulation (08/07/2020 12:18 PM HOME RESTORATION SERVICE CLEANER) Specimen (Source) Anatomical Location Collection Method / Collectio n Time Received Time / Laterality Volume Serena Berger M.D. RADIATION ONCOLOGY ORDERABLE S Performing Organization Address City/State/ZIP Code Phon e Number [facility] documented in this encounter Visit Diagnoses Diagnosis Malignant Neoplasm Of Tongue Base (HCC) documented in this encounter
--- OUTSIDE RECORDS SUMMARY | 2022-03-12 04:19 | XMS_ITS | Encounter Summary ---
:1950 Author Organization [facility] Address [address] [place] [address] Care Team Providers Name Role Phone Unavailable Primary Care Provider Unavailable Reason for Visit Radiation Therapy (Routine) - Closed Specialty Diagnoses / Procedures Referred By Contact Refer red To Contact Diagnoses Malignant Neoplasm Of Tongue Base (HCC) Serena Berger M.D. [facility] Procedures Prior Auth Rad Tx SD IMRT COMPLEX [address] [place], [place] [phone] Referral ID Status Reason Start Date Expiration Date Visits Requ ested Visits Authorized [id number] Closed 08/13/2020 11/11/2020 35 35 Encounter Details Date Type Department Care Team Description 08/31/2020 Hospital Encounter Department of Radiation Chetna Berger I., Oncology in [place] [address] [place] [phone] Social History Tobacco Use Types Packs/Day Years [...] tablet OMEGA-3 FATTY Take by mouth. 0 APUDF-HTC-MEZ ORAL prochlorperazine 10 mg every 8 0 [...] 04/23/2022 Appointment Radiation Oncology Fara Berger M.D. [address] [place] [phone] (Wo rk) documented as of this encounter Visit Diagnoses Not on filedocumented in this encounter
--- OUTSIDE RECORDS SUMMARY | 2022-03-12 04:19 | XMS_ITS | Encounter Summary ---
:1950 Author Organization [facility] Address [address] [place] [address] Care Team Providers Name Role Phone Unavailable Primary Care Provider Unavailable Encounter Details Date Type Department Care Team Description 08/30/2020 Clinical Communication Department of Dental Bety Mohan, Specialties in D.D.S. [address] [place] [phone] Social History Tobacco Use Types Packs/Day Years Used Date Smoking Tobacco: Never Assessed Sex Assigned at Date Recorded Not on file documented as of this encounter Miscellaneous Notes Telephone Encounter - Joy Xie - 09/05/2020 2:48 PM CST Patient is aware GENCY ROOM ORDERLY Telephone Encounter - Angelica Donato L.D.A. - 09/04/2020 8:44 AM EMERGENCY ROOM ORDERLY We will mail these to him per Dr. Edgar's note. Thank you! GENCY ROOM ORDERLY Telephone Encounter - Ana Marai Goncalves L.D.A. - 09/03/2020 8:29 AM EMERGENCY ROOM ORDERLY Please advise if you will be mailing to the patient. GENCY ROOM ORDERLY Telephone Encounter - Joy Xie - 08/30/2020 4:24 PM CST I called patient to schedule his next apptointment. He said he was thinking we were sending them to him? Thank you GENCY ROOM ORDERLY documented in this encounter Plan of Treatment Upcoming Encounters Date Type Specialty Care Team Description 04/23/2022 Appointment Radiation Oncology Fara Berger M.D. [address] [place] [phone] (Wo rk) documented as of this encounter Visit Diagnoses Not on filedocumented in this encounter
--- OUTSIDE RECORDS SUMMARY | 2022-03-12 04:19 | XMS_ITS | Encounter Summary ---
:[address] [facility] Address [address] [place] [address] Care Team Providers Name Role Phone Unavailable Primary Care Provider Unavailable Encounter Details Date Type Department Care Team Description 08/10/2020 Lab Department of Dione Min Encoun ter For Screening Medicine, Professional and P.A.- C., M.S. For Other Viral Diseases [facility] in [facility] [address] [facility] (COVID-19) [place], [place] [address] [address] [place] [address] [phone] Social History Tobacco Use Types Packs/Day Years Used Date Smoking Tobacco: Never Assessed Sex Assigned at Date Recorded Not on file documented as of this encounter Plan of Treatment Upcoming Encounters Date Type Specialty Care Team Description 04/23/2022 Appointment Radiation Oncology Fara Berger M.D. [address] [place], [place] [phone] (Wo rk) documented as of this encounter Procedures Procedure Name Priority Date/Time Associated Diagnosis Comme nts SARS CORONAVIRUS-2 Routine 08/10/2020 10:45 AM Encounter For R esults for this RNA, V INTERNET ECOMMERCE SPECIALIST Screening For Other procedur e are in Viral Diseases the results (COVID-19) section. documented in this encounter Results SARS Coronavirus-2 RNA, V Asymptomatic (08/10/2020 10:45 AM INTERNET ECOMMERCE SPECIALIST) [facility] Method Time Signature SARS-CoV-2 Swab, 08/11/2020 ECLR Specimen Nasopharynx 12:05 AM Source INTERNET ECOMMERCE SPECIALIST SARS CoV-2 Undetected Undetected 08/11/2020 ECLR RNA, TMA 12:05 AM INTERNET ECOMMERCE SPECIALIST Comment: SARS-CoV-2 RNA absent. This result does not rule out COVID-19 in the patient, as the sensitivity of the test depends o n the timing of the specimen collection and the quality of the specim en. Result should be correlated with patient's history and clinical presentat ion. ----ADDITIONAL INFORMATION---- This molecular amplification test was pe rformed using the Aptima SARS-CoV-2 assay ([employer] on the [employer] Sys tem under emergency use authorization (EUA) by the U.S. Food and Drug Administ ration. Fact sheets for this EUA assay can be fo und at the following links: For Healthcare Providers: https://www.[employer] a.gov/media/446669/download For Patients: https://www.fda.gov/media/ 572280/download Specimen Anatomical Collection Method Collection Time Receive d Time (Source) Location / / Volume Laterality Varies 08/10/2020 10:45 08/10/2020 3:15 (Nasopharynx) AM INTERNET ECOMMERCE SPECIALIST PM INTERNET ECOMMERCE SPECIALIST Dione Mobley P.A.-C., M.S. LAB MICROBIOLOGY - GENERAL O RDERABLES Performing Organization Address City/State/ZIP Code Phon e Number [facility] [address] [place] [phone] [facility] [place] [address] [address] documented in this encounter Visit Diagnoses Diagnosis Encounter For Screening For Other Viral Diseases (COVID-19) documented in this encounter Additional Health Concerns Infection Onset Date Last Indicated Resolved Time COVID19 Pending 08/10/2020 08/10/2020 08/11/2020 12:06 AM INTERNET ECOMMERCE SPECIALIST documented as of this encounter
--- OUTSIDE RECORDS SUMMARY | 2022-03-12 04:19 | XMS_ITS | Encounter Summary ---
:1950 Author Organization [facility] Address [address] [place] [address] Care Team Providers Name Role Phone Unavailable Primary Care Provider Unavailable Encounter Details Date Type Department Care Team Description 08/21/2020 Clinical Communication Department of Kirsten Collins Radiation Oncology in [place] Darlin Zelaya [phone] [facility] (Work) [place] [address] Social History Tobacco Use Types Packs/Day Years Used Date Smoking Tobacco: Never Assessed Sex Assigned at Date Recorded Not on file documented as of this encounter Plan of Treatment Upcoming Encounters Date Type Specialty Care Team Description 04/23/2022 Appointment Radiation Oncology Fara Berger M.D. [address] [place], [place] [phone] (Wo rk) documented as of this encounter Visit Diagnoses Not on filedocumented in this encounter
--- OUTSIDE RECORDS SUMMARY | 2022-03-12 04:19 | XMS_ITS | Encounter Summary ---
:1950 Author Organization [facility] Address [address] [place] [address] Care Team Providers Name Role Phone Unavailable Primary Care Provider Unavailable Reason for Visit Outpatient (Routine) - Closed Specialty Diagnoses / Procedures Referred By Contact Refer red To Contact Dentistry / Dental Diagnoses Malignant Neoplasm Of Tongue Base (HCC) Serena Berger [facility] M[facility] [address] [place] [phone] Referral ID Status Reason Start Date Expiration Date Visits Requ ested Visits Authorized [id number] Closed 08/07/2020 08/07/2021 1 1 Encounter Details Date Type Department Care Team Description 08/08/2020 Comprehensive Visit Department of Dental Seema Edgar, Malignant Neoplasm Specialties in D.D.S. Of Tongue Base (HCC) [place], [place] [address] [place] [address] [place] [phone] Social History Tobacco Use Types Packs/Day Years Used Date Smoking Tobacco: Never Assessed Sex Assigned at Date Recorded Not on file documented as of this encounter Consult Notes Seema Edgar D.D.S., M.S. - 08/08/2020 3:00 PM CST SUBJECTIVE REASON FOR CONSULT Antonio Mancini is a 70 y.o. male who presents for a Prosthodontic consultation regarding prior to definitive chemoradiation therapy. Patient was referred by Serena Berger M.D. in the departmentof Radiation Oncology. Patient reports they have a primary dentist: Юлия May. Patient's last dental visit was a few years ago. Patient reports the following oral concerns: He recently had an upper anterior tooth chip and has been unable to attend his scheduled dental appointment due to cancellation for COVID-19 related reasons on November 2019. HISTORY OF PRESENT ILLNESS No contraindications to dental treatment. 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 Dental Findings: Maxillary exostosis, 3x3mm mucocele on right lower labial mucosa Missing teeth: 19, 20 and 30 Caries/Defective restorations: #6 facial/cervical primary caries, 7 facial/incisal primary caries, 8 incisal primary caries with loss of tooth structure, 21 facial secondary caries, 31 mesial secondary caries around existing full gold crown with mesial-facial amalgam around the [place] margins. Notablyloss of coronal vertical dimension is evident with the maxillary incisor dentition Periodontal Findings: Generalized probing depths: No clinical attachment loss Bleeding upon probing: Yes, generalized Mobility: No significant Oral hygiene: Fair Plaque: Subgingival - Light; Supragingival - Moderate Calculus: Subgingival - Light; Supragingival - Light Temporomandibular Joints: Full range of motion. Negative for popping, clicking, deflection, or deviation. Lower left lip mucocele Maximum interocclusal opening measured between tooth #9 and tooth #24: 45 mm DIAGNOSTICS Panoramic radiograph taken and reviewed. There are no central bony or odontogenic lesions in the body or ascending rami of the mandible. Mandibular condyles appear to have mild osteophytic changes to the right condyle but the left condyle is well rounded, both condyles are well corticated with no signs of pathology. Maxillary sinuses appear to be clear without clouding or gross pathology. Dental roots appear normal with no signs of resorption or periapical radiolucencies. Radiolucencies within the coronal structure of teeth are evident with teeth #6, 7, 16 and the crown margin around tooth #31 which have also been clinically evaluated; however, this radiograph is non-diagnostic for all but the largest carious lesions. ASSESSMENT / PLAN #1 Malignant Neoplasm Of Tongue Base (HCC) Mr. Mancini's daughter was present during the entirety of today's appointment. Patient's oral health is adequate for chemoradiation??with recommendation: - Given active carious lesions, I advised [...] regard to tooth #31 full gold crown christian, he may require treatment consisting of a [...] an extraction of the tooth is warranted. Advised patient of making his medical team aware of any oral symptoms in the future. Reviewed the oral sequelae and effects of chemoradiation including reddening of the skin, mucositis, taste alteration, trismus, risk for osteoradionecrosis, and xerostomia with increased cavity risk. Reviewed the strategy for enhancing caries resistance with fluoride use. Maxillary and mandibular impressions were made using Kromopan alginate. A dental lab order was initiated for [facility] in-house lab for fabrication of fluoride carriers. A folder was provided containing patient education materials and fluoride pr escription. Questions were welcomed and answered to the best of my ability and patient reports no further questions at this time. Next Visit: Fluoride carriers will be mailed to patient. This was a 45 minute appointment with greater than 50% of the time spent in face to face counseling and coordination of care. [employer]PET [employer] UPHOLSTERY documented in this encounter Plan of Treatment Upcoming Encounters Date Type Specialty Care Team Description 04/23/2022 Appointment Radiation Oncology Fara Berger M.D. [address] [place] [address] [phone] (Wo rk) Scheduled Orders Name Type Priority Associated Order Schedule Diagnoses ME UNLISTED PROC Dental Procedure Routine 1 Occur rences MAXILLOFAC PROSTH starting 0 08/08/2020 documented as of this encounter Procedures Procedure Name Priority Date/Time Associated Diagnosis Comme nts DENTAL LAB Routine 08/09/2020 Results for thi s procedure are i n the results section. MEDICAL PANOREX Routine 08/08/2020 5:59 PM Malignant Neoplasm Of Results for this CLEAN[employer] CARPET [employer] UPHOLSTERY Tongue Base (HCC) procedure are in the results section. documented in this encounter Results Dental Lab (08/09/2020) Narrative Lyn Bernstein - 08/09/2020 Poured and trimmed by Kankia Bernstein Flouride carriers by Kanika Bernstein Seema Edgar D.D.S. DENTAL ORDERABLES [facility] (08/08/2020 5:59 PM CLEANER CARPET AND UPHOLSTERY) Specimen (Source) Anatomical Location Collection Method / Collectio n Time Received Time / Laterality Volume Narrative Seema Edgar D.D.S., M.S. - 08/08/2020 5:59 PM CLEANER CARPET [employer] UPHOLSTERY Panoramic radiograph taken and reviewed. There are no central bony or odontogenic lesions in the body or ascen ding rami of the mandible. Mandibular condyles appear to have mild osteophytic changes to the right condyle but the left condyle is well rou nded, both condyles are well corticated with no signs of pathology. M axillary sinuses appear to be clear without clouding or gross patholog y. Dental roots appear normal with no signs of resorption or periapical rad iolucencies. Radiolucencies within the coronal structure of teeth are evide nt with teeth #6, 7, 16 and the crown margin around tooth #31 which have also been clinically evaluated; however, this radiograph is non-diagnost ic for all but the largest carious lesions. Seema Edgar D.D.S. DENTAL ORDERABLES documented in this encounter Visit Diagnoses Diagnosis Malignant Neoplasm Of Tongue Base (HCC) documented in this encounter Additional Health Concerns Infection Onset Date Last Indicated Resolved Time COVID19 Pending 08/10/2020 08/10/2020 08/11/2020 12:06 AM CLEANER CARPET AND UPHOLSTERY COVID19 Pending 08/16/2020 08/16/2020 08/17/2020 3:28 PM CLE[employer]PET [employer] UPHOLSTERY documented as of this encounter
--- OUTSIDE RECORDS SUMMARY | 2022-03-12 04:19 | XMS_ITS | Encounter Summary ---
:1950 Author Organization [facility] Address [address] [place] [address] Care Team Providers Name Role Phone Unavailable Primary Care Provider Unavailable Reason for Visit Radiation Therapy (Routine) - Closed Specialty Diagnoses / Procedures Referred By Contact Refer red To Contact Diagnoses Malignant Neoplasm Of Tongue Base (HCC) Serena Berger M.D. [facility] Procedures Prior Auth Rad Tx [place] IMRT COMPLEX [address] [place], [place] [phone] Referral ID Status Reason Start Date Expiration Date Visits Requ ested Visits Authorized [id number] Closed 08/13/2020 11/11/2020 35 35 Encounter Details Date Type Department Care Team Description 08/17/2020 Hospital Encounter Department of Radiation Chetna Berger I., [place] [address] [place] [phone] Social History Tobacco Use Types Packs/Day Years [...] tablet OMEGA-3 FATTY Take by mouth. 0 [id number] ORAL prochlorperazine 10 mg every 8 0 [...] Care Team Description 04/23/2022 Appointment Radiation Oncology aFra Berger M.D. [address] [place] [address] [phone] (Wo rk) documented as of this encounter Visit Diagnoses Not on filedocumented in this encounter Additional Health Concerns Infection Onset Date Last Indicated Resolved Time COVID19 Pending 08/16/2020 08/16/2020 08/17/2020 3:28 PM GERONTOLOGICAL NURSE PRACTITIONER documented as of this encounter
--- OUTSIDE RECORDS SUMMARY | 2022-03-12 04:19 | XMS_ITS | Encounter Summary ---
:1950 Author Organization [facility] Address [address] [place] [address] Care Team Providers Name Role Phone Unavailable Primary Care Provider Unavailable Encounter Details Date Type Department Care Team Description 08/16/2020 Lab Department of Dione Min Encoun ter For Screening Medicine, Professional and P.A.- C., M.S. For Other Viral Diseases [facility] in [facility] [address] [facility] (COVID-19) [place], [place] [address] [address] [place] [address] [phone] Social History Tobacco Use Types Packs/Day Years Used Date Smoking Tobacco: Never Assessed Sex Assigned at Date Recorded Not on file documented as of this encounter Plan of Treatment Upcoming Encounters Date Type Specialty Care Team Description 04/23/2022 Appointment Radiation Oncology Fara Berger M.D. [address] [place], [place] [phone] (Wo rk) documented as of this encounter Procedures Procedure Name Priority Date/Time Associated Diagnosis Comme nts SARS CORONAVIRUS-2 Routine 08/16/2020 11:28 AM Encounter For R esults for this RNA, V BILINGUAL CUSTOMER SERVICE Screening For Other procedur e are in Viral Diseases the results (COVID-19) section. documented in this encounter Results SARS Coronavirus-2 RNA, V Asymptomatic (08/16/2020 11:28 AM BILINGUAL CUSTOMER SERVICE) [facility] Method Time Signature SARS-CoV-2 Swab, 08/17/2020 ECLR Specimen Nasopharynx 3:28 PM BILINGUAL CUSTOMER SERVICE Source SARS CoV-2 Undetected Undetected 08/17/2020 ECLR RNA, TMA 3:28 PM BILINGUAL CUSTOMER SERVICE Comment: SARS-CoV-2 RNA absent. This result does not rule out COVID-19 in the patient, as the sensitivity of the test depends o n the timing of the specimen collection and the quality of the specim en. Result should be correlated with patient's history and clinical presentat ion. ----ADDITIONAL INFORMATION---- This molecular amplification test was pe rformed using the Aptima SARS-CoV-2 assay ([employer] on the abcdexperts Sys tem under emergency use authorization (EUA) by the U.S. Food and Drug Administ ration. Fact sheets for this EUA assay can be fo und at the following links: For Healthcare Providers: https://www.Benefitter a.gov/media/777714/download For Patients: https://www.fda.gov/media/ 392646/download Specimen Anatomical Collection Method Collection Time Receive d Time (Source) Location / / Volume Laterality Varies 08/16/2020 11:28 08/16/2020 4:25 (Nasopharynx) AM BILINGUAL CUSTOMER SERVICE PM BILINGUAL CUSTOMER SERVICE Dione Mobley P.A.-C., M.SDarwin LAB MICROBIOLOGY - GENERAL O RDERABLES Performing Organization Address City/State/ZIP Code Phon e Number [facility]- [address] [place] [address] [phone] [facility] [place] [place] [address] System in [address] documented in this encounter Visit Diagnoses Diagnosis Encounter For Screening For Other Viral Diseases (COVID-19) documented in this encounter Additional Health Concerns Infection Onset Date Last Indicated Resolved Time COVID19 Pending 08/16/2020 08/16/2020 08/17/2020 3:28 PM BILINGUAL CUSTOMER SERVICE documented as of this encounter
--- OUTSIDE RECORDS SUMMARY | 2022-03-12 04:19 | XMS_ITS | Encounter Summary ---
:1950 Author Organization [facility] Address [address] [place] [address] Care Team Providers Name Role Phone Unavailable Primary Care Provider Unavailable Reason for Visit Radiation Therapy (Routine) - Closed Specialty Diagnoses / Procedures Referred By Contact Refer red To Contact Diagnoses Malignant Neoplasm Of Tongue Base (HCC) Serena Berger M.D. [facility] Procedures Prior Auth Rad Tx [place] IMRT COMPLEX [address] [place], [place] [address] Referral ID Status Reason Start Date Expiration Date Visits Requ ested Visits Authorized [id number] Closed 08/13/2020 11/11/2020 35 35 Encounter Details Date Type Department Care Team Description 08/16/2020 Hospital Encounter Department of Radiation Chetna Berger I., [place] [address] [place] [phone] Social History Tobacco Use Types Packs/Day Years [...] tablet OMEGA-3 FATTY Take by mouth. 0 [id number] ORAL prochlorperazine 10 mg every 8 0 [...] Appointment Radiation Oncology Fara Berger M.D. [address] [place] [address] [phone] (Wo rk) documented as of this encounter Visit Diagnoses Not on filedocumented in this encounter Additional Health Concerns Infection Onset Date Last Indicated Resolved Time COVID19 Pending 08/16/2020 08/16/2020 08/17/2020 3:28 PM RUSSIAN TEACHER documented as of this encounter
--- OUTSIDE RECORDS SUMMARY | 2022-03-12 04:19 | XMS_ITS | Encounter Summary ---
:1950 Author Organization [facility] Address [address] [place] [address] Care Team Providers Name Role Phone Unavailable Primary Care Provider Unavailable Reason for Visit Radiation Therapy (Routine) - Closed Specialty Diagnoses / Procedures Referred By Contact Refer red To Contact Diagnoses Malignant Neoplasm Of Tongue Base (HCC) Serena Berger M.D. [facility] Procedures Prior Auth Rad Tx CT IMRT COMPLEX [address] [place], [place] [phone] Referral ID Status Reason Start Date Expiration Date Visits Requ ested Visits Authorized [id number] Closed 08/13/2020 11/11/2020 35 35 Encounter Details Date Type Department Care Team Description 08/27/2020 Hospital Encounter Department of Radiation Chetna Berger I., Oncology [place] [address] [place] [phone] Social History Tobacco Use Types Packs/Day Years [...] tablet OMEGA-3 FATTY Take by mouth. 0 [id number] ORAL prochlorperazine 10 mg every 8 0 [...] 04/23/2022 Appointment Radiation Oncology Fara Berger M.D. [address] [place] [address] [phone] (Wo rk) documented as of this encounter Visit Diagnoses Not on filedocumented in this encounter
--- OUTSIDE RECORDS SUMMARY | 2022-03-12 04:19 | XMS_ITS | Encounter Summary ---
:1950 Author Organization [facility] Address [address] [place] [address] Care Team Providers Name Role Phone Unavailable Primary Care Provider Unavailable Reason for Visit Radiation Therapy (Routine) - Closed Specialty Diagnoses / Procedures Referred By Contact Refer red To Contact Diagnoses Malignant Neoplasm Of Tongue Base (HCC) Serena Berger M.D. [facility] Procedures Prior Auth Rad Tx [place] IMRT COMPLEX [address] [place], [place] [address] Referral ID Status Reason Start Date Expiration Date Visits Requ ested Visits Authorized [id number] Closed 08/13/2020 11/11/2020 35 35 Encounter Details Date Type Department Care Team Description 08/14/2020 Hospital Encounter Department of Radiation Chetna Berger I., Oncology [place] [address] [place] [phone] Social History Tobacco Use Types Packs/Day Years [...] tablet OMEGA-3 FATTY Take by mouth. 0 [id number] ORAL prochlorperazine 10 mg every 8 0 [...] Appointment Radiation Oncology Fara Berger M.D. [address] [place], [place] [phone] (Wo rk) documented as of this encounter Visit Diagnoses Not on filedocumented in this encounter
--- OUTSIDE RECORDS SUMMARY | 2022-03-12 04:19 | XMS_ITS | Encounter Summary ---
:1950 Author Organization [facility] Address [address] [place] [address] Care Team Providers Name Role Phone Unavailable Primary Care Provider Unavailable Reason for Referral Radiation Therapy (Routine) - Canceled Specialty Diagnoses / Procedures Referred By Contact Refer red To Contact Diagnoses Malignant Neoplasm Of Tongue Base (HCC) Serena Berger M.D. [facility] Procedures Management Visit [address] [place] [phone] Referral ID Status Reason Start Date Expiration Date Visits V isits Requested Authorized [id number] Canceled 08/01/2020 08/01/2021 1 1 D TECHNICAL ASSISTANT Reason for Visit Radiation Therapy (Routine) - Canceled Specialty Diagnoses / Procedures Referred By Contact Refer red To Contact Diagnoses Malignant Neoplasm Of Tongue Base (HCC) Serena Berger M.D. [facility] Procedures Management Visit [address] [place] [phone] Referral ID Status Reason Start Date Expiration Date Visits V isikia Requested Authorized [id number] Canceled 08/01/2020 08/01/2021 1 1 Encounter Details Date Type Department Care Team Description 08/29/2020 Hospital Encounter Department of Serena Berger Neoplasm Radiation Oncology Hardik Barber Of Tongue Base (HCC) in [place], [address] [place] [address] [facility] [address] [place], [place] [phone] (Work) [phone] Social History Tobacco Use Types Packs/Day Years Used Date Smoking Tobacco: Never Assessed Sex Assigned at Date Recorded Not on file documented as of this encounter Last Filed Vital Signs Vital Sign Reading Time Taken Comments Blood Pressure 146/81 08/29/2020 10:30 AM FIELD TECHNICAL ASSISTANT Pulse 63 08/29/2020 10:30 AM FIELD TECHNICAL ASSISTANT Temperature 36.7 ??C (98 ??F) 08/29/2020 10:30 AM FIELD TECHNICAL ASSISTANT Respiratory Rate - - Oxygen Saturation - - Inhaled Oxygen Concentration - - Weight 99.5 kg (219 lb 5.7 oz) 08/29/2020 10:30 AM FIELD TECHNICAL ASSISTANT Height - - Body Mass Index 30.2 08/07/2020 9:56 AM FIELD TECHNICAL ASSISTANT documented in this encounter Medications at Time [...] tablet OMEGA-3 FATTY Take by mouth. 0 [id number] ORAL prochlorperazine 10 mg every 8 0 [...] encounter Progress Notes Serena Berger M.D. - 08/29/2020 10:30 AM CST ATTESTATION FOR MANAGEMENT VISIT I saw and evaluated the patient and participated in the robledo portions of the service as noted below. I reviewed the documentation of Ms. Yuliana Shahid RN and agree with the findings and plan. The patient appears well on exam. I believe his left neck is smaller than previous. We will continue with radiation as planned and monitor weekly. Serena Berger M.D., 08/29/2020 SUBJECTIVE REASON FOR VISIT Evaluation for side effects while receiving radiation treatment for 1. Malignant Neoplasm Of Tongue Base (HCC) SUPERVISED BY: Dr. Berger HISTORY OF PRESENT ILLNESS Antonio Mancini is [...] Last Treatment Elapsed Days F1 H&N_BOT 200 2600 7000 08/13/2020 08/29/2020 16 Course Summary 08/13/2020 08/29/2020 16 The patient was seen and examined today with Dr. Berger. The patient reports 4 out of 10 pain with swallow. He notes pain was more noticeable over the weekend. He is not currently taking Tylenol or Ibuprofen. He does report mild soreness to the left his of oral cavity as well. He is bothered by his thick saliva. He has been completing baking soda/salt rinses. He is taking in a soft based diet. He is having regular bowel movements. He denies fevers, chills,shortness of breath, chest pain or cough. He is completing jaw exercises. He is applying aloe vera gel application to the treatment field area. LABS August 21, 2020: WBC 5.90; Hgb 4.14; Plt 226, 000; ANC 4.52 August 29, 2020: pending WEIGHT August 17, 2020: 101 kg August 29, 2020: 99.5 kg PATIENT REPORTED SYMPTOM SCREEN FATIGUE (Scale: 0 = no fatigue; 10 = worst fatigue you can imagine): 5-6 PAIN (Scale: 0 = no pain; 10 = worst pain you can imagine): 4 OVERALL QUALITY OF LIFE (Scale: 0 = as bad as can be; 10 = as good as can be): 8 OBJECTIVE BP 146/81 (BP Location: Right arm, Patient Position: Sitting, Cuff Size: Small) Pulse 63 Temp 36.7 ??C (Temporal) Wt 99.5 kg BMI 30.20 kg/m?? PHYSICAL EXAM General: Alert and oriented in no apparent distress. ENT: no signs of injection wit in the oral cavity. Mucositis noted to the uvula region. Skin: mild pink toned skin to the mid facial region and neck area. 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 Cisplatin therapy to be initiated on August 19, 2020 ?? The patient is tolerating radiation treatment well overall. Weight remains relatively stable. He will start using moisturizing lotion to the treatment field area. I discussed Biotene oral spray, increasing frequency of baking soda/salt rinses, XyliMelt Discs and use of vaporizer or humidifier for further management of thickened saliva. He can trial 1000 mg of Tylenol alternating with up to 600 mg of Ibuprofen every 3 hours as needed for pain management. Maximum daily dose of Tylenol is 1000 mg. Maximum daily dose of Ibuprofen is 3200 mg. He will review with Medical Oncology prior to initiating painregimen. He will contact us with any questions or concerns. We will continue with radiation treatment as planned. ?? Signed by: Yuliana Shahid R.N. 08/29/2020 12:51 PM FIELD TECHNICAL ASSISTANT D TECHNICAL ASSISTANT documented in this encounter Plan of Treatment Upcoming Encounters Date Type Specialty Care Team Description 04/23/2022 Appointment Radiation Oncology Fara Berger M.D. [address] [place], [place] [phone] (Wo rk) Scheduled Orders Name Type Priority Associated Diagnoses Order S chedule Management Visit Radiation Oncology Routine Malignant Neoplasm Once for 1 Of Tongue Base (HCC) Occurre nces starting 08/29/2020 unti l 08/29/2020 documented as of this encounter Visit Diagnoses Diagnosis Malignant Neoplasm Of Tongue Base (HCC) documented in this encounter
--- OUTSIDE RECORDS SUMMARY | 2022-03-12 04:19 | XMS_ITS | Encounter Summary ---
:1950 Author Organization [facility] Address [address] [place] [address] Care Team Providers Name Role Phone Unavailable Primary Care Provider Unavailable Encounter Details Date Type Department Care Team Description 08/23/2020 Lab Department of Serena Avilez I., Encounter For Screening Medicine, Professional MDarwinDDarwin For Other Viral Diseases and [facility] in [address] [place] [address] (COVID-19) [place], [place] [address] [address] [place] [address] [phone] Social History Tobacco Use Types Packs/Day Years Used Date Smoking Tobacco: Never Assessed Sex Assigned at Date Recorded Not on file documented as of this encounter Plan of Treatment Upcoming Encounters Date Type Specialty Care Team Description 04/23/2022 Appointment Radiation Oncology Fara Berger M.D. [address] [place], [place] [phone] (Wo rk) documented as of this encounter Procedures Procedure Name Priority Date/Time Associated Diagnosis Comme nts SARS CORONAVIRUS-2 Routine 08/23/2020 12:29 PM Encounter For R esults for this RNA, V TEST FIXTURE ASSEMBLER Screening For Other procedur e are in Viral Diseases the results (COVID-19) section. documented in this encounter Results SARS Coronavirus-2 RNA, V Asymptomatic (08/23/2020 12:29 PM TEST FIXTURE ASSEMBLER) [facility] Method Time Signature SARS-CoV-2 Swab, 08/24/2020 ECLR Specimen Nasopharynx 5:48 AM TEST FIXTURE ASSEMBLER Source SARS CoV-2 Undetected Undetected 08/24/2020 ECLR RNA, TMA 5:48 AM TEST FIXTURE ASSEMBLER Comment: SARS-CoV-2 RNA absent. This result does not rule out COVID-19 in the patient, as the sensitivity of the test depends o n the timing of the specimen collection and the quality of the specim en. Result should be correlated with patient's history and clinical presentat ion. ----ADDITIONAL INFORMATION---- This molecular amplification test was pe rformed using the Aptima SARS-CoV-2 assay ([employer] on the Meruss tem under emergency use authorization (EUA) by the U.S. Food and Drug Administ ration. Fact sheets for this EUA assay can be fo und at the following links: For Healthcare Providers: https://www.[employer] a.gov/media/629865/download For Patients: https://www.fda.gov/media/ 450244/download Specimen Anatomical Collection Method Collection Time Receive d Time (Source) Location / / Volume Laterality Varies 08/23/2020 12:29 08/23/2020 9:48 (Nasopharynx) PM TEST FIXTURE ASSEMBLER PM TEST FIXTURE ASSEMBLER Serena Berger M.D. LAB MICROBIOLOGY - GENERAL O MICHELLEERAALISHA Performing Organization Address City/State/[facility] Phon e Number [facility]- [address] [place] [address] [phone] [facility] [place] [address] documented in this encounter Visit Diagnoses Diagnosis Encounter For Screening For Other Viral Diseases (COVID-19) documented in this encounter Additional Health Concerns Infection Onset Date Last Indicated Resolved Time COVID19 Pending 08/23/2020 08/23/2020 08/24/2020 5:49 AM TEST FIXTURE ASSEMBLER documented as of this encounter
--- OUTSIDE RECORDS SUMMARY | 2022-03-12 04:19 | XMS_ITS | Encounter Summary ---
:1950 Author Organization [facility] Address [address] [place] [address] Care Team Providers Name Role Phone Unavailable Primary Care Provider Unavailable Reason for Visit Radiation Therapy (Routine) - Closed Specialty Diagnoses / Procedures Referred By Contact Refer red To Contact Diagnoses Malignant Neoplasm Of Tongue Base (HCC) Serena Berger M.D. [facility] Procedures Prior Auth Rad Tx [place] IMRT COMPLEX [address] [place], [place] [address] Referral ID Status Reason Start Date Expiration Date Visits Requ ested Visits Authorized [id number] Closed 08/13/2020 11/11/2020 35 35 Encounter Details Date Type Department Care Team Description 08/20/2020 Hospital Encounter Department of Radiation Chetna Berger I., Oncology in [place] [address] [place] [phone] Social History Tobacco Use Types Packs/Day Years [...] tablet OMEGA-3 FATTY Take by mouth. 0 [id number] ORAL prochlorperazine 10 mg every 8 0 [...] 04/23/2022 Appointment Radiation Oncology Fara Berger M.D. [address] [place] [phone] (Wo rk) documented as of this encounter Visit Diagnoses Not on filedocumented in this encounter
--- OUTSIDE RECORDS SUMMARY | 2022-03-12 04:19 | XMS_ITS | Encounter Summary ---
:1950 Author Organization [facility] Address [address] [place] [address] Care Team Providers Name Role Phone Unavailable Primary Care Provider Unavailable Reason for Visit Radiation Therapy (Routine) - Closed Specialty Diagnoses / Procedures Referred By Contact Refer red To Contact Diagnoses Malignant Neoplasm Of Tongue Base (HCC) Serena Berger M.D. [facility] Procedures Prior Auth Rad Tx [place] IMRT COMPLEX [address] [place], [place] [address] Referral ID Status Reason Start Date Expiration Date Visits Requ ested Visits Authorized [id number] Closed 08/13/2020 11/11/2020 35 35 Encounter Details Date Type Department Care Team Description 08/21/2020 Hospital Encounter Department of Radiation Chetna Berger I., Oncology in [place] [address] [place] [phone] Social History Tobacco Use Types Packs/Day Years [...] tablet OMEGA-3 FATTY Take by mouth. 0 [id number] ORAL prochlorperazine 10 mg every 8 0 [...] 04/23/2022 Appointment Radiation Oncology Fara Berger M.D. [address] [place] [phone] (Wo rk) documented as of this encounter Visit Diagnoses Not on filedocumented in this encounter
--- OUTSIDE RECORDS SUMMARY | 2022-03-12 04:19 | XMS_ITS | Encounter Summary ---
:1950 Author Organization [facility] Address [address] [place] [address] Care Team Providers Name Role Phone Unavailable Primary Care Provider Unavailable Encounter Details Date Type Department Care Team Description 08/09/2020 Clinical Communication Department of Serena Berger Radiation Oncology willie Barber M.D. [place] [facility] [address] [facility] [address] [place] [phone] Social History Tobacco Use Types Packs/Day Years Used Date Smoking Tobacco: Never Assessed Sex Assigned at Date Recorded Not on file documented as of this encounter Miscellaneous Notes Telephone Encounter - Serena Berger M.D. - 08/09/2020 1:58 PM PUBLIC AID ELIGIBILITY ASSISTANT I called Mr. Mancini today. He said he was very happy with his dental appointment yesterday. We discussed his #31 gold crown. He feels that he would not be able to get this addressed before radiation therapy. I shared with him that because it is on the right side that I will try to keep the dose as low as possible to this area. He is aware that dental extractions after radiation are challenging if the tooth cannot be saved. He is comfortable with proceeding. I appreciate Dr. Edgar's input on his case. IC AID ELIGIBILITY ASSISTANT documented in this encounter Plan of Treatment Upcoming Encounters Date Type Specialty Care Team Description 04/23/2022 Appointment Radiation Oncology Fara Berger M.D. [address] [place], [place] [phone] (Wo rk) documented as of this encounter Visit Diagnoses Not on filedocumented in this encounter
--- OUTSIDE RECORDS SUMMARY | 2022-03-12 04:19 | XMS_ITS | Encounter Summary ---
:1950 Author Organization [facility] Address [address] [place] [address] Care Team Providers Name Role Phone Unavailable Primary Care Provider Unavailable Reason for Referral Outpatient (Routine) - Closed Specialty Diagnoses / Procedures Referred By Contact Refer red To Contact Diagnoses Malignant Neoplasm Of Tongue Base (HCC) Serena Berger M.D. [facility] and [address] [place] [phone] [place] [address] Phone: [phone] Fax: Referral ID Status Reason Start Date Expiration Date Visits V isits Requested Authorized [id number] Closed Service not 08/01/2020 08/01/2021 1 1 available in [facility] ER CUTTER Specialty Diagnoses / Procedures Referred By Contact Adrian yeh To Contact Serena Berger M.D. [address] [phone] Referral ID Status Reason Start Date Expiration Date Visits Requ ested Visits Authorized ER CUTTER Specialty Diagnoses / Procedures Referred By Contact Adrian yeh To Contact Serena Berger M.D. [address] [phone] Referral ID Status Reason Start Date Expiration Date Visits Requ ested Visits Authorized ER CUTTER Radiation Therapy (Routine) - Closed Specialty Diagnoses / Procedures Referred By Contact Refer red To Contact Diagnoses Malignant Neoplasm Of Tongue Base (HCC) Serena Berger M.D. [facility] Procedures Prior Auth Rad Tx [place] IMRT COMPLEX [address] [place], [place] [address] Referral ID Status Reason Start Date Expiration Date Visits Requ ested Visits Authorized [id number] Closed 08/13/2020 11/11/2020 35 35 ER CUTTER Radiation Therapy (Routine) - Closed Specialty Diagnoses / Procedures Referred By Contact Refer red To Contact Diagnoses Malignant Neoplasm Of Tongue Base (HCC) Serena Berger M.D. [facility] Procedures Initial Rad Onc Treatment Planning CT Simulation [address] [place], [place] [address] Referral ID Status Reason Start Date Expiration Date Visits Requ ested Visits Authorized [id number] Closed 08/01/2020 08/01/2021 1 1 ER CUTTER Encounter Details Date Type Department Care Team Description 08/01/2020 Orders Only Department of Serena Berger N eoplasm Of Radiation Oncology in [place] Tongue Base (HCC) [facility] [address] [facility] (Primary Dx) [address] [place] [phone] Social History Tobacco Use Types Packs/Day Years Used Date Smoking Tobacco: Never Assessed Sex Assigned at Date Recorded Not on file documented as of this encounter Plan of Treatment Upcoming Encounters Date Type Specialty Care Team Description 04/23/2022 Appointment Radiation Oncology Fara Berger M.D. [address] [place], [place] [phone] (Wo rk) Scheduled Orders Name Type Priority Associated Diagnoses Order S chedule Prior Auth Rad Tx Radiation Oncology Routine Malignant Neoplas m Of Ordered: 08/01/2020 Tongue Base (HCC) Scheduled Referrals Name Type Priority Associated Diagnoses Order S chedule Radiation Oncology Outpatient Referral Routine Malignant Neopl asm Expected: - PRO education Of Tongue Base (HCC) 07/05 visit (Approximate), Expires: 08/01/2023 Radiation Oncology Outpatient Referral Routine Malignant Neopl asm Expected: - Nurse education Of Tongue Base (HCC) visit (clinic) (Approximate) , Expires: 08/01/2021 documented as of this encounter Results Initial Rad Onc Treatment Planning CT Simulation (08/07/2020 12:18 PM VENEER CUTTER) Specimen (Source) Anatomical Location Collection Method / Collectio n Time Received Time / Laterality Volume Serena Berger M.D. RADIATION ONCOLOGY ORDERABLE S Performing Organization Address City/State/ZIP Code Phon e Number [facility] documented in this encounter Visit Diagnoses Diagnosis Malignant Neoplasm Of Tongue Base (HCC) - Primary documented in this encounter
--- OUTSIDE RECORDS SUMMARY | 2022-03-12 04:19 | XMS_ITS | Encounter Summary ---
:1950 Author Organization [facility] Address [address] [place] [address] Care Team Providers Name Role Phone Unavailable Primary Care Provider Unavailable Reason for Visit Radiation Therapy (Routine) - Closed Specialty Diagnoses / Procedures Referred By Contact Refer red To Contact Diagnoses Malignant Neoplasm Of Tongue Base (HCC) Serena Berger M.D. [facility] Procedures Prior Auth Rad Tx [place] IMRT COMPLEX [address] [place], [place] [address] Referral ID Status Reason Start Date Expiration Date Visits Requ ested Visits Authorized [id number] Closed 08/13/2020 11/11/2020 35 35 Encounter Details Date Type Department Care Team Description 08/13/2020 Hospital Encounter Department of Radiation Chetna Berger I., [place]cology in [place] [address] [place] [phone] Social History Tobacco Use Types Packs/Day Years [...] tablet OMEGA-3 FATTY Take by mouth. 0 [id number] ORAL prochlorperazine 10 mg every 8 0 [...] Appointment Radiation Oncology Fara Berger M.D. [address] [place], [place] [phone] (Wo rk) documented as of this encounter Visit Diagnoses Not on filedocumented in this encounter
--- OUTSIDE RECORDS SUMMARY | 2022-03-12 04:19 | XMS_ITS | Encounter Summary ---
:1950 Author Organization [facility] Address [address] [place] [address] Care Team Providers Name Role Phone Unavailable Primary Care Provider Unavailable Encounter Details Date Type Department Care Team Description 08/08/2020 Silent Schedule Department of Dental Seema Edgar D.D.S. Specialties in [place] [address] [address] [place], [place] [address] [facility] [address] [place] [address] [phone] Social History Tobacco Use Types Packs/Day Years Used Date Smoking Tobacco: Never Assessed Sex Assigned at Date Recorded Not on file documented as of this encounter Plan of Treatment Upcoming Encounters Date Type Specialty Care Team Description 04/23/2022 Appointment Radiation Oncology Fara Berger M.D. [address] [place], [place] [phone] (Wo rk) documented as of this encounter Procedures Procedure Name Priority Date/Time Associated Diagnosis Comme [facility] MEDICAL PANOREX Routine 08/08/2020 5:59 PM Malignant Neoplasm Of Results for this [employer] Tongue Base (HCC) procedure are in the results section. documented in this encounter Results [employer] (08/08/2020 5:59 PM [employer]) Specimen (Source) Anatomical Location Collection Method / Collectio n Time Received Time / Laterality Volume Narrative Seema Edgar D.D.S., M.S. - 08/08/2020 5:59 PM [employer] Panoramic radiograph taken and reviewed. There are [...] ORDERABLES documented in this encounter Visit Diagnoses Not on filedocumented in this encounter
--- OUTSIDE RECORDS SUMMARY | 2022-03-12 04:19 | XMS_ITS | Encounter Summary ---
:1950 Author Organization [facility] Address [address] [place] [address] Care Team Providers Name Role Phone Unavailable Primary Care Provider Unavailable Reason for Visit Radiation Therapy (Routine) - Closed Specialty Diagnoses / Procedures Referred By Contact Refer red To Contact Diagnoses Malignant Neoplasm Of Tongue Base (HCC) Serena Berger M.D. [facility] Procedures Prior Auth Rad Tx [place] IMRT COMPLEX [address] [place], [place] [address] Referral ID Status Reason Start Date Expiration Date Visits Requ ested Visits Authorized [id number] Closed 08/13/2020 11/11/2020 35 35 Encounter Details Date Type Department Care Team Description 08/28/2020 Hospital Encounter Department of Radiation Chetna Berger I., [place]cology [place] [address] [place] [phone] Social History Tobacco Use Types Packs/Day Years [...] tablet OMEGA-3 FATTY Take by mouth. 0 [id number] ORAL prochlorperazine 10 mg every 8 0 [...] Team Description 04/23/2022 Appointment Radiation Oncology Fara Breger M.D. [address] [place] [phone] (Wo rk) documented as of this encounter Visit Diagnoses Not on filedocumented in this encounter
--- OUTSIDE RECORDS SUMMARY | 2022-03-12 04:19 | XMS_ITS | Encounter Summary ---
:[address] [facility] Address [address] [place] [address] Care Team Providers Name Role Phone Unavailable Primary Care Provider Unavailable Reason for Referral Outpatient (Routine) - Closed Specialty Diagnoses / Procedures Referred By Contact Refer red To Contact Diagnoses Malignant Neoplasm Of Tongue Base (HCC) Dione Mobley P.A.-C., M.S. [address] [place] [address] Referral ID Status Reason Start Date Expiration Visits Visits Date Requested Authorized [id number] Closed Patient 08/07/2020 08/07/2021 1 1 Preference DATA ENTRY OPERATOR Outpatient (Routine) - Closed Specialty Diagnoses / Procedures Referred By Contact Refer red To Contact Dentistry / Dental Diagnoses Malignant Neoplasm Of Tongue Base (HCC) Serena Berger [place] [facility] Bruce Dye [address] [place] [phone] Referral ID Status Reason Start Date Expiration Date Visits Requ ested Visits Authorized [id number] Closed 08/07/2020 08/07/2021 1 1 Scheduling Instructions Later afternoon appt, pt has Dr. Méndez at noon tomorrow DATA ENTRY OPERATOR Reason for Visit Appointment Request (Routine) - Closed Specialty Diagnoses / Procedures Referred By Contact Refer red To Contact Radiation Oncology Diagnoses Malignant Neoplasm Of Tongue Base (HCC) Charly Fox M.D. [address] Alonso Mendiola, [address] [address] Referral ID Status Reason Start Date Expiration Date Visits Requ ested Visits Authorized [id number] Closed 08/01/2020 08/01/2021 1 1 Encounter Details Date Type Department Care Team Description 08/07/2020 Hospital Encounter Department of Serena Berger Neoplasm Radiation Oncology Hardik Barber Of Tongue Base (HCC) in [address] (Primary Dx) [place], [place] [address] [facility] [address] [place], [place] [phone] (Work) [phone] Social History Tobacco Use Types Packs/Day Years Used Date Smoking Tobacco: Never Assessed Sex Assigned at Date Recorded Not on file documented as of this encounter Last Filed Vital Signs Vital Sign Reading Time Taken Comments Blood Pressure 146/78 08/07/2020 9:56 AM LEAD DATA ENTRY OPERATOR Pulse 67 08/07/2020 9:56 AM LEAD DATA ENTRY OPERATOR Temperature 37 ??C (98.6 ??F) 08/07/2020 9:56 AM LEAD DATA ENTRY OPERATOR Respiratory Rate - - Oxygen Saturation - - Inhaled Oxygen Concentration - - Weight 102 kg (225 lb 1.4 oz) 08/07/2020 9:56 AM LEAD DATA ENTRY OPERATOR Height 181.5 cm (5' 11.46) 08/07/2020 9:56 AM LEAD DATA ENTRY OPERATOR Body Mass Index 30.99 08/07/2020 9:56 AM LEAD DATA ENTRY OPERATOR documented in this encounter Medications at Time of Discharge Medication Sig Dispensed Refills Start Date End Date acetaminophen (TYLENOL) 325 Take 325 mg by 0 mg tablet mouth every 4 (four) hours as needed for pain. ALPRAZolam (XANAX) 1 mg as needed. 0 06/25/2020 tablet ASCORBIC ACID, VITAMIN C, Take by mouth. 0 ORAL aspirin-calcium carbonate 81 Take by mouth. 0 01/2009 mg-300 mg calcium(777 mg) tablet cholecalciferol (VITAMIN D3) Take by mouth. 0 10 mcg/mL (400 Unit/mL) drops multivitamin chewable tablet Chew 1 tablet 0 daily. OMEGA-3 FATTY [id number] Take by mouth. [address] ORAL aspirin [address] tablet TAKE ONE TABLET BY 0 05/03 MOUTH documented as of this encounter Consult Notes Serena Berger M.D. - 08/07/2020 10:00 AM CST RADIATION ONCOLOGY CONSULTATION SUBJECTIVE REQUESTING PROVIDER Charly Fox M.D., ENT PRIMARY PROVIDER Dr. Travon Fuller REASON FOR CONSULT Asked to see patient by Dr. Fox to render an opinion regarding radiation therapy options for his p16 positive left base of tongue cancer. 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 The patient presents now to discuss radiation options. His oncologic history was reviewed with the [...] Positive for p16 by IHC. 6. August 08, 2020: Scheduled Medical Oncology consultation with Dr. Méndez. INTERVAL HISTORY The patient reports that he is doing fairly well. He states that the left neck mass is distiller especially at night. He states that the pain can be as severe as 3- 4 on a 0-10 pain scale. He deniesany troubles swallowing or pain with swallowing. He denies otalgia, hoarseness, other pain or lumps or masses. He thinks his weight has been stable. He has worked at [employer] for the last 20 years, but has not been able to this season due to his cancer diagnosis. He normally sees the dentist every two years. His appointment this November 2019, but got cancelled because of Covid. He states he brushes and flosses regularly. The patient denies a history of prior radiation therapy. The patient's ECOG performance status is 0. REVIEW OF SYSTEMS Review of systems was negative except as documented above. PATIENT REPORTED SYMPTOM SCREEN PAIN (Scale: 0 = no pain; 10 = worst pain you can imagine): 4-5 OVERALL QUALITY OF LIFE (Scale: 0 = as bad as can be; 10 = as good as can be): 8 PAST MEDICAL HISTORY 1. Adenomatous colon polyp 2. Anxiety 3. BPH 4. Hypertension 5. Hyperlipidemia 6. Cataracts 7. Invasive squamous cell carcinoma of the left tongue base, as per HPI PAST SURGICAL HISTORY 1. Hernia repair, 1990 2. Septoplasty, 1990 3. Vasectomy, 2002 4. Vocal cord stripping, right, 1990 SOCIAL HISTORY He lives in [place], [place] with his in their own home. He has one daughter and two grandchildren. His daughter works an [employer] and is very supportive. He works part-time at [employer], but is on leave now. He is a former smoker quit in 1995; he used to smoke other peoples cigarettes when he would drink on the weekends. He drinks 12 cans of beer per week. The patient used to smokes marijuana periodically, but has recently stopped. FAMILY HISTORY Patient is adopted. The following portions of the patient's history were reviewed with the patient and/or family and updated as appropriate: allergies, current medications, oncologic history, family history, medical history, social history, surgical history and problem list. OBJECTIVE BP 146/78 (BP Location: Left arm, Patient Position: Sitting, Cuff Size: Regular) Pulse 67 Temp 37 ??C (Temporal) Ht 181.5 cm Wt 102 kg BMI 30.99 kg/m?? PHYSICAL EXAM General: Well-developed, well-nourished and in no apparent distress. HEENT: Ears- TMs appear normal. Oral cavity/oropharynx is normal to inspection and palpation and is remarkable for a left base of tongue mass on palpation. No tonsil involvement. Good tongue mobility. He has one chipped anterior tooth that is not painful. He has multiple other teeth that have fillingsor crowns, but they look well. Neck - he has a 3cm mass in the left level II that is palpable. No other adenopathy is palpable. He has no skin involvement. DIAGNOSTICS I have reviewed the available imaging, operative and pathology reports as described above. ASSESSMENT / PLAN #1 Stage II, cT2 N2 M0, p16+ left base of tongue squamous cell carcinoma, s/p biopsy We discussed the findings above and below in this note with the patient and his daughter. We had a stef, yet compassionate, discussion regarding radiation options for his HPV-related base of tongue cancer. We discussed his treatment alternatives. Dr. Fox favored chemoradiotherapy over a surgical approach; therefore, we discussed definitive radiation and chemotherapy options including proton therapy (delivered in [place]) vs photon therapy (delivered here or in [place]). We discussed clinical trials that we have open in [place]. After a full discussion, he would like to proceed with photon radiation therapy here in [place]. The patient???s clinical and pathologic scenario was reviewed with the patient in detail. The rationale for radiotherapy was reviewed with the patient and their family. The logistics of radiotherapy simulation were reviewed with the patient utilizing the simulation booklet. We discussed treatment planning and potential strategies for minimizing dose to critical structures. The logistics of radiotherapy treatment were reviewed with the patient. Treatments are administered daily Thursday through Thursday,with each treatment lasting approximately 10-20 minutes. Our team approach was reviewed with the patient. We discussed the rationale, risks, side effects and adjuvant goals of radiation therapy. We discussed the acute as well as ferry terminal supervisor risks, including, but not limited to fatigue, skin erythema, sore throat or esophagitis, xerostomia, lymphedema, fibrosis, trismus, and small risks to the nerves, spinalcord and mandible, larynx and secondary malignancies. We did discuss the challenges of treatment in [place] should the patient require PEG tube and/or hospitalization (I.e. coordinating PEG tube placement during treatment and the fact that we cannot treat hospitalized patients at [facility] and this might necessitate transfer to [facility] so that treatment is not interrupted. They understood and their questions were answered. He wished to proceed with treatment. We tentatively plan on delivering 7000 cGy in 35 fractions starting August 13, 2020. We also discussed obtaining a dental evaluation in [place] as this needs to be done quickly beforestarting radiation therapy. I am hopeful that he will not need any dental extractions as he takes good care of his teeth. We discussed carriers/trays and hopefully these could be mailed to him. We also discussed a referral for a baseline swallow study in the next week or two. We also will make referrals to our dieticians and community mental health social worker to help support him through his treatments. We also discussed COVID-19 screening for asymptomatic patients who are starting radiation therapy. We are requiring nasal swab of our patients prior to initiating therapy. This test need to be performed before treatment begins. He understood and this will be arranged. My thanks to Dev Frank and Jonny for the opportunity to participate in this patient's care. EDUCATION Ready to learn, no apparent learning barriers were identified; learning preferences include listening. Explained diagnosis and treatment plan; patient expressed understanding of the content. CONSENT Discussed the risks, benefits, alternatives, and the necessity of other members of the healthcare team participating in the procedure. All questions answered and consent given. I personally spent 70 minutes in care of the patient today. Time includes both non face to face and face to face patient care. Signed by: Serena Berger M.D. 08/07/2020 2:20 PM LEAD DATA ENTRY OPERATOR Radiation Oncology [facility] [address] [place] [address] DATA ENTRY OPERATOR documented in this encounter Miscellaneous Notes Addendum Note - Vanessa Samuel - 08/07/2020 10:00 AM LEAD DATA ENTRY OPERATOR Encounter addended by: Vanessa Samuel on: 08/07/2020 3:06 PM Actions taken: Letter saved DATA ENTRY OPERATOR documented in this encounter Plan of Treatment Upcoming Encounters Date Type Specialty Care Team Description 04/23/2022 Appointment Radiation Oncology Fara Berger M.D. [address] [place], [place] [phone] (Wo rk) Scheduled Referrals Name Type Priority Associated Order Schedule Diagnoses Dental Specialties - Outpatient Referral Routine Malignant Raj plasm Expected: Prosthodontics consult Of Tongue Base 01/2021, (clinic) ([facility]) Expires: 08/07/2023 External referral Outpatient Referral Routine Malignant Neopla sm Ordered: ancillary (non-Burt) Of Tongue Base 08/07 (HCC) documented as of this encounter Visit Diagnoses Diagnosis Malignant Neoplasm Of Tongue Base (HCC) - Primary documented in this encounter
--- OUTSIDE RECORDS SUMMARY | 2022-03-12 04:19 | XMS_ITS | Encounter Summary ---
:1950 Author Organization [facility] Address [address] [place] [address] Care Team Providers Name Role Phone Unavailable Primary Care Provider Unavailable Reason for Visit Radiation Therapy (Routine) - Closed Specialty Diagnoses / Procedures Referred By Contact Refer red To Contact Diagnoses Malignant Neoplasm Of Tongue Base (HCC) Serena Berger M.D. [facility] Procedures Prior Auth Rad Tx SD IMRT COMPLEX [address] [place], [place] [address] Referral ID Status Reason Start Date Expiration Date Visits Requ ested Visits Authorized [id number] Closed 08/13/2020 11/11/2020 35 35 Encounter Details Date Type Department Care Team Description 08/24/2020 Hospital Encounter Department of Radiation Chetna Berger I., [place] [address] [place] [phone] Social History Tobacco Use Types Packs/Day Years [...] tablet OMEGA-3 FATTY Take by mouth. 0 [id number] ORAL prochlorperazine 10 mg every 8 0 [...] 04/23/2022 Appointment Radiation Oncology Fara Berger M.D. [address] [place] [phone] (Wo rk) documented as of this encounter Visit Diagnoses Not on filedocumented in this encounter
--- OUTSIDE RECORDS SUMMARY | 2022-03-12 04:19 | XMS_ITS | Encounter Summary ---
:1950 Author Organization [facility] Address [address] [place] [address] Care Team Providers Name Role Phone Unavailable Primary Care Provider Unavailable Reason for Referral Specialty Diagnoses / Procedures Referred By Contact Refer red To Contact Serena Berger M.D. [place] [address] [place] [phone] Referral ID Status Reason Start Date Expiration Date Visits Requ ested Visits Authorized GER MANAGEMENT Encounter Details Date Type Department Care Team Description 08/22/2020 Hospital Encounter Department of Fara Berger M.D. [address] [place] [phone] Malignant Neoplasm Radiation Oncology Kirsten Collins C.C.RDarwinCDarwin Of Tongue Base (HCC) in [place], [place] [address] [place] [phone] Social History Tobacco Use Types Packs/Day Years [...] tablet OMEGA-3 FATTY Take by mouth. 0 [id number] ORAL prochlorperazine 10 mg every 8 0 [...] 04/23/2022 Appointment Radiation Oncology Fara Berger M.D. [address] [place] [phone] (Wo rk) Scheduled Referrals Name Type Priority Associated Order Schedule Diagnoses Radiation Oncology Outpatient Referral Routine Malignant Neopl asm Once for 1 - PRO education Of Tongue Base Occurrence s starting visit (HCC) 08/22/2020 unti l 08/22/2020 documented as of this encounter Visit Diagnoses Diagnosis Malignant Neoplasm Of Tongue Base (HCC) documented in this encounter
--- OUTSIDE RECORDS SUMMARY | 2022-03-12 04:19 | XMS_ITS | Encounter Summary ---
:[address] [facility] Address [address] [place] [address] Care Team Providers Name Role Phone Unavailable Primary Care Provider Unavailable Reason for Visit Reason Onset Date Comments Outpatient COVID-19 Testing 08/17/2020 Encounter Details Date Type Department Care Team Description 08/16/2020 External Outreach Department of [facility] Fadia Lr Contact With And Medicine, [place] Jose Alberto Huggins (Suspected) Exposure Clinic, in [address] To COVID-19 (Primary [place], [place] Dx) [address] [facility] [address] [place], [place] [phone] (Work) [phone] Social History Tobacco Use Types Packs/Day Years Used Date Smoking Tobacco: Never Assessed Sex Assigned at Date Recorded Not on file documented as of this encounter Progress Notes Marty Lr P.A.-C. - 08/16/2020 9:53 AM CST Encounter created for infectious disease screening. TERPERSON documented in this encounter Plan of Treatment Upcoming Encounters Date Type Specialty Care Team Description 04/23/2022 Appointment Radiation Oncology Fara Berger M.D. [address] [place], [place] [phone] (Wo rk) documented as of this encounter Visit Diagnoses Diagnosis Contact With And (Suspected) Exposure To COVID-19 - Primary documented in this encounter Additional Health Concerns Infection Onset Date Last Indicated Resolved Time COVID19 Pending 08/16/2020 08/16/2020 08/17/2020 3:28 PM COUNTERPERSON documented as of this encounter
--- OUTSIDE RECORDS SUMMARY | 2022-03-12 04:19 | XMS_ITS | Encounter Summary ---
:1950 Author Organization [facility] Address [address] [place] [address] Care Team Providers Name Role Phone Unavailable Primary Care Provider Unavailable Reason for Visit Radiation Therapy (Routine) - Closed Specialty Diagnoses / Procedures Referred By Contact Refer red To Contact Diagnoses Malignant Neoplasm Of Tongue Base (HCC) Serena Berger M.D. [facility] Procedures Prior Auth Rad Tx SD IMRT COMPLEX [address] [place], [place] [address] Referral ID Status Reason Start Date Expiration Date Visits Requ ested Visits Authorized [id number] Closed 08/13/2020 11/11/2020 35 35 Encounter Details Date Type Department Care Team Description 08/30/2020 Hospital Encounter Department of Radiation Chetna Berger I., [place] [address] [place] [phone] Social History Tobacco Use Types Packs/Day Years [...] tablet OMEGA-3 FATTY Take by mouth. 0 [id number] ORAL prochlorperazine 10 mg every 8 0 [...] Appointment Radiation Oncology Fara Berger M.D. [address] [place] [phone] (Wo rk) documented as of this encounter Visit Diagnoses Not on filedocumented in this encounter
== END 2022-03-06 13:56 | disposition home or self-care (01) ==
PROVIDERS: PCP Internal Medicine; Visit Provider Family Medicine
DX: R07.9 Chest pain, unspecified (principal)
CPT/HCPCS: 93016; 93325; 93351

== ENCOUNTER 2022-07-02 10:15 | Outpatient (RCR) | payer MEDICARE, SELFPAY ==
[2022-04-02 08:48] LABS: Basophils Percent Auto 1.5 % (0.0-3.0); Eosinophils Percent Auto 3.6 % (0.0-7.0); Hematocrit 35.9 % (37.0-53.0); Hemoglobin* 12.1 gm/dL (13.5-17.5); Lymphocytes Percent Auto 17.9 % (20-44); Mean Corpuscular HGB Conc 34 gm/dL (32-36); Mean Corpuscular Hemoglobin 34 pg (26-34); Mean Corpuscular Volume 101 fL (80-100); Monocytes Percent Auto 11.2 % (0.0-11.0); Neutrophils Percent Auto 65.8 % (42.0-72.0); Platelet Count* 131 K/uL (140-440); Red Blood Count 3.56 m/uL (4.30-5.90)
[2022-04-02 08:49] LABS: Slide Review Reflex No
[2022-04-02 09:09] LABS: Albumin* 4.3 g/dL (3.3-5.0); Chloride* 100 mmol/L (96-114)
[2022-04-02 09:10] LABS: Potassium* 4.4 mmol/L (3.6-5.1); Sodium* 136 mmol/L (135-149)
[2022-04-02 09:12] LABS: Aspartate Amino Transferase* 35 U/L (12-35); Bilirubin Total* 0.4 mg/dL (0.1-1.5); Blood Urea Nitrogen* 26 mg/dL (7-30); Carbon Dioxide* 30 mmol/L (20-32); Creatinine* 1.4 mg/dL (0.5-1.5); Estimated Glomerular Filt Rate 53 ml/min
[2022-04-02 09:13] LABS: Alanine Aminotransferase* 26 U/L (4-50); Alkaline Phosphatase* 57 U/L (40-150); Calcium* 9.4 mg/dL (8.4-10.6); Glucose* 108 mg/dL (60-115)
[2022-04-02 09:45] LABS: Ferritin* 56.1 ng/mL (17.9-464.0)
[2022-04-02 10:00] LABS: Vitamin B12* 742 pg/mL (243-894)
[2022-04-04 08:31] LABS: Folate, Serum > 22.3 ng/mL (>=5.9)
--- NOTE | 2022-06-25 15:40 | PC.NURSE ---
Pt was scheduled for labs today at 10:00 AM, however, he did not come to his appointment. RN noted that pt is scheduled to see Dr. Méndez next week on 07/02/2022. RN called and LM on pt's primary line inviting him to call with updates for his plans for his lab work that needs to be done prior to MD appt.
[2022-07-02 09:39] LABS: Basophils Percent Auto 1.2 % (0.0-3.0); Eosinophils Percent Auto 4.3 % (0.0-7.0); Hematocrit 37.5 % (37.0-53.0); Hemoglobin* 12.5 gm/dL (13.5-17.5); Lymphocytes Percent Auto 19.6 % (20-44); Mean Corpuscular HGB Conc 33 gm/dL (32-36); Mean Corpuscular Hemoglobin 34 pg (26-34); Mean Corpuscular Volume 101 fL (80-100); Monocytes Percent Auto 11.2 % (0.0-11.0); Neutrophils Percent Auto 63.7 % (42.0-72.0); Platelet Count* 109 K/uL (140-440); RDW Coefficient of Variation % 12.4 % (11.5-15.5); White Blood Count* 3.22 K/uL (4.50-11.00)
[2022-07-02 09:51] LABS: Total Cells Counted 100
[2022-07-02 09:55] LABS: Albumin* 4.3 g/dL (3.3-5.0); Chloride* 104 mmol/L (96-114); Potassium* 4.2 mmol/L (3.6-5.1); Sodium* 138 mmol/L (135-149)
[2022-07-02 09:57] LABS: Bilirubin Total* 0.6 mg/dL (0.1-1.5); Creatinine* 1.4 mg/dL (0.5-1.5); Estimated Glomerular Filt Rate 53 ml/min
[2022-07-02 09:58] LABS: Alanine Aminotransferase* 21 U/L (4-50); Alkaline Phosphatase* 57 U/L (40-150); Aspartate Amino Transferase* 30 U/L (12-35); Blood Urea Nitrogen* 25 mg/dL (7-30); Calcium* 9.5 mg/dL (8.4-10.6); Carbon Dioxide* 29 mmol/L (20-32); Glucose* 101 mg/dL (60-115); Total Protein* 6.9 g/dL (6.0-8.3)
[2022-07-02 10:32] LABS: Ferritin* 33.6 ng/mL (17.9-464.0)
[2022-07-02 10:48] LABS: Vitamin B12* 760 pg/mL (243-894)
[2022-07-02 11:31] LABS: Slide Review Reflex No
[2022-07-02 11:49] LABS: Basophils Percent Manual 1.2 % (0.0-3.0); Eosinophils Percent Manual 4.3 % (0.0-7.0); Lymphocytes Percent Manual 19.6 % (20.0-44.0); Monocytes Percent Manual 11.2 % (0-11); Neutrophils Percent Manual 63.7 % (42.0-72.0)
--- NOTE | 2022-07-03 15:22 | ONC.NURNOTE ---
Patient plans on staying with Dr. ibarra and the [facility] team
--- NOTE | 2022-07-03 15:22 | ONC.NURNOTE ---
Patient plans on staying with Dr. ibarra and the [facility] team
[2022-07-04 05:27] LABS: Folate, Serum >22.3 ng/mL (>=5.9)
== END 2022-09-29 23:59 | disposition home or self-care (01) ==
LOC: CCIC 10:15
PROVIDERS: PCP Internal Medicine; Referring Provider Internal Medicine; Visit Provider Internal Medicine Hematology & Oncology
DX: C02.9 Malignant neoplasm of tongue, unspecified (principal); D69.6 Thrombocytopenia, unspecified; Z72.89 Other problems related to lifestyle; D75.9 Disease of blood and blood-forming organs, unspecified; R78.89 Finding of other specified substances, not normally found in blood; F10.90 Alcohol use, unspecified, uncomplicated; F41.9 Anxiety disorder, unspecified
CPT/HCPCS: 36415; 80053; 82607; 82728; 82746; 84443; 85007; 85025; 99212; 99213; 99214

== ENCOUNTER 2022-10-27 10:29 | Outpatient (CLI) | payer MEDICARE, SELFPAY ==
--- NOTE | 2022-10-27 11:00 | CRLHL7_ITS ---
For Patients: As a result of the Century Cures Act, medical imaging exams and procedure reports are released immediately into your electronic medical record. You may view this report before your referring provider. If you have questions, please contact your health care provider. INDICATION: Tongue base neoplasm status post chemo-radiation. TECHNIQUE: CT of the neck with 94 cc Isovue 370 iodinated contrast agent. Coronal and sagittal reconstructions are included. COMPARISON: Neck CT from 08/30/2021. FINDINGS: Mild edema involving the tongue base/supraglottic larynx, reduced since prior exam and likely treatment related. Mild edema/scarring of the submandibular glands which demonstrate indistinct margins, likely treatment related. No focal enhancing mass or other suspicious lesion within the tongue base to suggest local recurrent tumor. No pathologic lymphadenopathy. The oral cavity and nasopharyngeal spaces are normal. The airway including the trachea is normal and is patent. The parotid glands and sublingual glands are normal in appearance. The thyroid gland is normal in appearance. The vascular structures opacify normally with contrast material. Vascular calcifications carotid siphons. No suspicious lytic or blastic osseous lesions. Advanced disc degeneration at C4-5, C5-6 and C6-7. Trace retrolisthesis at C4-5, C5-6 and C6-7. Multilevel uncovertebral and facet arthrosis with mild to moderate bony neural foraminal stenosis most prominent at C5-6 on the left and C6-7 on the right. No periapical dental disease. Left maxillary sinus near complete opacification with frothy secretions centrally in mucosal thickening peripherally. 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 Visualized orbital and intracranial contents are normal. Supraclavicular regions, mediastinum and soft tissues of the imaged chest wall are normal. Visualized portions of the upper lungs are clear. IMPRESSION: 1. Evolving posttreatment examination with reduced edema involving the tongue base and supraglottic larynx. No evidence of local tumor recurrence at the tongue base. No pathologic lymphadenopathy within the neck. Please note that all CT scans at this facility use dose modulation, iterative reconstruction, and/or weight-based dosing when appropriate to reduce radiation dose to as low as reasonably achievable. Dictated by Hamilton Cisneros MD @ 10/28/2022 12:03:42 PM (Electronically Signed)
[2022-10-27 11:48] LABS: Creatinine* 1.3 mg/dL (0.5-1.5); Estimated Glomerular Filt Rate 58 ml/min
== END 2022-10-27 10:30 | disposition home or self-care (01) ==
LOC: CT 10:29
PROVIDERS: PCP Internal Medicine; Visit Provider Nurse Practitioner
DX: C01 Malignant neoplasm of base of tongue (principal)
CPT/HCPCS: 36415; 70491; 82565; Q9967

== ENCOUNTER 2022-11-03 10:00 | Outpatient (RCR) | payer MEDICARE, SELFPAY ==
[2022-10-31 10:28] LABS: Hemoglobin* 13.6 gm/dL (13.5-17.5); Lymphocytes Percent Auto 15.9 % (20-44); Mean Corpuscular HGB Conc 34 gm/dL (32-36); Mean Corpuscular Hemoglobin 34 pg (26-34); Mean Corpuscular Volume 99 fL (80-100); Monocytes Percent Auto 9.4 % (0.0-11.0); Neutrophils Percent Auto 71.7 % (42.0-72.0); Platelet Count* 145 K/uL (140-440); Red Blood Count 4.05 m/uL (4.30-5.90); White Blood Count* 3.95 K/uL (4.50-11.00)
[2022-10-31 10:33] LABS: Slide Review Reflex No
[2022-10-31 10:50] LABS: Albumin* 4.3 g/dL (3.3-5.0); Chloride* 102 mmol/L (96-114); Potassium* 4.8 mmol/L (3.6-5.1); Sodium* 136 mmol/L (135-149)
[2022-10-31 10:52] LABS: Cholesterol* 262 mg/dL (90-199); Creatinine* 1.3 mg/dL (0.5-1.5); Estimated Glomerular Filt Rate 58 ml/min; Triglycerides* 138 mg/dL (40-149)
[2022-10-31 10:53] LABS: Alanine Aminotransferase* 25 U/L (4-50); Alkaline Phosphatase* 45 U/L (40-150); Aspartate Amino Transferase* 29 U/L (12-35); Bilirubin Total* 0.5 mg/dL (0.1-1.5); Calcium* 9.6 mg/dL (8.4-10.6); Carbon Dioxide* 30 mmol/L (20-32); Glucose* 106 mg/dL (60-115); Total Protein* 7.3 g/dL (6.0-8.3)
[2022-10-31 11:05] LABS: HDL Cholesterol* 137 mg/dL (>=40); LDL Cholesterol Calculated 97 mg/dL (<100)
[2022-10-31 11:33] LABS: Hemoglobin A1C* 5.19 % (0-5.6)
[2022-10-31 11:41] LABS: Vitamin B12* 727 pg/mL (243-894)
[2022-10-31 12:09] LABS: Blood Urea Nitrogen* 25 mg/dL (7-30)
[2022-11-02 08:47] LABS: Folate, Serum >22.3 ng/mL (>=5.9)
== END 2023-04-29 23:59 | disposition home or self-care (01) ==
LOC: CCIC 10:00
PROVIDERS: Internal Medicine Hematology & Oncology; PCP Internal Medicine; Visit Provider Physician Assistant
DX: C02.9 Malignant neoplasm of tongue, unspecified (principal); R79.89 Other specified abnormal findings of blood chemistry
CPT/HCPCS: 36415; 80053; 80061; 82607; 82746; 83036; 84443; 85025; 99212; 99214

== ENCOUNTER 2023-02-05 09:35 | Inpatient (IN) | payer MEDICARE, SELFPAY ==
[2023-02-05] VITALS (25 sets, daily range): BP systolic 115–136; BP diastolic 70–94; PULSE 67–90; RESP 16–20; TEMP 37.1–38.7; O2SAT 90–99; BMI 25.8
--- NOTE | 2023-02-05 10:03 | CRLHL7_ITS ---
For Patients: As a result of the Cures Act, medical imaging exams and procedure reports are released immediately into your electronic medical record. You may view this report before your referring provider. If you have questions, please contact your health care provider. INDICATION: Fever TECHNIQUE: Chest 1 view COMPARISON: None FINDINGS: Cardiovascular and mediastinum: Mild tortuosity of the descending thoracic aorta. Lungs and pleural spaces: Lungs are clear. No sign of infiltrate or mass. No sign of pleural effusion. No pneumothorax. Bones and soft tissues: No significant findings. IMPRESSION: No acute findings. Dictated by Travon Ch MD @ 02/05/2023 10:54:33 AM (Electronically Signed)
--- NOTE | 2023-02-05 10:06 | ED_ITS ---
HPI - General Adult General Date Seen: 02/05/23 Chief complaint: Weakness Stated complaint: sick, shakes Time Seen by Provider: 02/05/23 09:37 Source: patient Mode of arrival: ambulatory Limitations: no limitations History of Present Illness HPI narrative: Patient is a 72-year-old male who notes that he has felt ill since last Thursday, 6 days ago. He was not aware fevers at home but he has felt chilled. He describes night sweats nightly. He did have some vomiting initially although that seems improved. He has not had any diarrhea, no abdominal pain, no urinary symptoms. He denies respiratory symptoms. Generally feels poorly. He does drink daily, says he has never had problems with withdrawal, at least to this degree. He lives at home with his . Has a history of squamous cell carcinoma, not currently under any treatment. Daily medications include p.r.n. Xanax and daily aspirin. He does not smoke. Related Data Home Medications Medication Instructions Recorded Confirmed cyanocobalamin (vitamin B-12) 1,000 mcg PO DAILY 04/02/22 02/05/23 1,000 mcg tablet sildenafil 50 mg tablet 50 mg PO DAILY PRN 04/02/22 02/05/23 aspirin 81 mg tablet,delayed 162 mg PO DAILY 07/02/22 02/05/23 release alprazolam 1 mg tablet 1 mg PO DAILY PRN anxiety 02/05/23 02/05/23 Allergies Allergy/AdvReac Type Severity Reaction Status Date / Time No Known Drug Allergies Allergy Verified 02/05/23 12:41 Review of Systems Status of ROS: Reports: 10 or more systems reviewed and unremarkable except as noted in History and below [facility] Medical History Primary tongue squamous cell carcinoma ?C02.9 - Malignant neoplasm of tongue, unspecified (ICD-10) Anxiety ?F41.9 - Anxiety disorder, unspecified (ICD-10) Surgical History S/P radiation therapy ?Z92.3 - Personal history of irradiation (ICD-10) Status post chemotherapy ?Z92.21 - Personal history of antineoplastic chemotherapy (ICD-10) Social History Smoking Status: Former smoker Second hand tobacco smoke exposure: No How often do you have a drink containing alcohol: never How often do you have six or more drinks on one occasion: Never AUDIT-C Alcohol total score: 0 Non-prescribed substance use: marijuana (any form) service: Yes Exam Narrative: Exam Narrative: Vital signs as noted above. In general, an alert, nontoxic male. Looks a little fatigued. Breathing easily. Head: Normocephalic, atraumatic. Eyes: Pupils are equal reactive. Extraocular movements are full. Conjunctivae are normal. ENT: Mucous membranes are moist. Throat is normal. Neck: Supple without lymphadenopathy. Heart: Regular rate and rhythm. No murmur or rub. Lungs: Clear bilaterally. No increased work of breathing, crackles or wheezes. Abdomen: Soft and nontender. No organomegaly. No CVA tenderness. Extremities: Well perfused. No edema. No calf tenderness. Pulses intact. Neurologic: Patient is alert and oriented to person and place. Speech is fluent. Face is symmetric. Moves all extremities equally. Affect: Normal. Skin: Warm and dry. Well perfused. Const: Vital Signs, click to edit/add: Vital Signs - 24 hr 02/05/23 09:45 02/05/23 10:19 02/05/23 10:21 Temperature 101.7 F H Pulse Rate 90 86 Pulse Rate [Pulse Oximeter] 89 Respiratory Rate Blood Pressure 120/94 H Blood Pressure [Ri ght Upper Arm] 133/79 Pulse Oximetry 96 96 94 [facility] 02/05/23 10:30 02/05/23 10:32 02/05/23 10:45 Temperature Pulse Rate 83 88 80 Pulse Rate [Pulse Oximeter] Respiratory Rate Blood Pressure 119/73 Blood Pressure [Ri ght Upper Arm] Pulse Oximetry 93 95 97 Oxygen Delivery Va thod 02/05/23 11:00 02/05/23 11:02 02/05/23 11:15 Temperature Pulse Rate 80 79 77 Pulse Rate [Pulse Oximeter] Respiratory Rate Blood Pressure 126/75 Blood Pressure [Ri ght Upper Arm] Pulse Oximetry 97 96 96 Oxygen Delivery Va thod 02/05/23 11:30 02/05/23 11:31 02/05/23 11:45 Temperature Pulse Rate 74 77 79 Pulse Rate [Pulse Oximeter] Respiratory Rate Blood Pressure 121/74 Blood Pressure [Ri ght Upper Arm] Pulse Oximetry 96 96 90 Oxygen Delivery Me thod 02/05/23 12:27 02/05/23 12:30 02/05/23 12:30 Temperature 99.5 F Pulse Rate 70 75 Pulse Rate [Pulse Oximeter] Respiratory Rate Blood Pressure Blood Pressure [Ri ght Upper Arm] Pulse Oximetry 96 96 Oxygen Delivery Me thod 02/05/23 12:32 02/05/23 12:33 02/05/23 12:45 Temperature 99.5 F Pulse Rate 68 69 73 Pulse Rate [Pulse Oximeter] Respiratory Rate 16 Blood Pressure 115/79 Blood Pressure [Ri ght Upper Arm] Pulse Oximetry 94 94 97 Oxygen Delivery Me thod 02/05/23 13:00 02/05/23 13:01 02/05/23 13:15 Temperature Pulse Rate 73 72 69 Pulse Rate [Pulse Oximeter] Respiratory Rate 16 Blood Pressure 119/70 Blood Pressure [Ri ght Upper Arm] Pulse Oximetry 92 93 92 Oxygen Delivery Me thod Documenting provider has reviewed patient's vital signs: yes Course Course Hospital Course: Plan will be to initiate an IV and fluids, I will give him some Tylenol for fever. Labs including blood cultures are drawn, UA, chest x-ray pending. Diagnostic considerations include an infectious process such as COVID, pneumonia, gastroenteritis, hematologic disorder, cholecystitis, pyelonephritis, UTI, sepsis. Vital signs at this time show fever, blood pressure and pulse are normal. O2 sats are normal, lungs are clear, but with symptoms for week and night sweats, I do think a chest x-ray is reasonable this time. Chest x-ray by my review did not show obvious infiltrate, read as negative by Radiology. Labs were also fairly unremarkable, white blood cell count was slightly low at 4.2, hemoglobin of 12.5, platelets [id number], suspect related to alcohol. Metabolic panel showed his sodium to be mildly low 131, creatinine 1.7, blood sugar 168. BUN was 26. LFT show an AST of 125, ALT of 56, likely related to alcohol use. Remainder of his LFTs are normal. CRP was markedly elevated at 33. Urinalysis was negative with 0-2 red cells, 0-2 white cells and no bacteria. COVID was negative. Point of care troponin was 0.02. In the absence of an obvious source for his fever, night sweats, elevated CRP, I elected to do CT scans of the chest abdomen and pelvis to rule out an occult source of infection or another diagnosis such as lymphoma. By my review, chest CT shows a consolidation in the left lung. I did not see other acute findings. Final radiology reads are as follows: Impression: 1. There is dense airspace opacification of the peripheral left lower lobe consistent with developing pneumonia with likely reactive left hilar lymph nodes and moderate mucoid impaction of lower lobe bronchi. 2. Moderate chronic gastritis changes similar to remote comparison exam. 3. Otherwise, no acute intra-abdominal abnormality. 4. Moderate stool seen throughout the colon. Minimal distal colonic diverticulosis without diverticulitis. 5. Mild thickening of the bladder consistent with cystitis changes. Patient's curb 65 score is 2 placing him at moderate risk. He is alcoholic, I think suffering from mild withdrawal symptoms and did require a mg of IV Ativan here for agitation and shakes. He feels significantly better. His last alcohol was 5 days ago. He has not been able to drink because he has not been feeling well. Today is , I think outpatient follow-up tomorrow is unlikely to be able to be accomplished, his regular doctor is gone until Thursday. Overall, I think he would benefit from admission today for IV antibiotics and observation. He is agreeable to that. Given Rocephin 1 g IV as well as 500 mg of oral azithromycin. Hemodynamically stable. Vital Signs Vital signs: Initial Vital Signs Temperature 101.7 F H 02/05/23 09:45 Temperature Source Temporal Artery Scan 02/05/23 09:45 Pulse Rate 89 02/05/23 09:45 Blood Pressure 133/79 02/05/23 09:45 Blood Pressure Mean 97 02/05/23 09:45 Blood Pressure Position Sitting 02/05/23 09:45 Pulse Oximetry 96 02/05/23 09:45 Oxygen Delivery Method Room Air 02/05/23 09:45 Vital Signs Temperature 101.7 F H 02/05/23 09:45 Pulse Rate 89 02/05/23 09:45 Blood Pressure 133/79 02/05/23 09:45 Pulse Oximetry 96 02/05/23 09:45 Oxygen Delivery Method Room Air 02/05/23 09:45 Temperature 99.5 F 02/05/23 12:32 Pulse Rate 69 02/05/23 13:15 Respiratory Rate 16 02/05/23 13:01 Blood Pressure 119/70 02/05/23 13:01 Pulse Oximetry 92 02/05/23 13:15 Oxygen Delivery Method Room Air 02/05/23 09:45 Medical Decision Making Lab Data Labs: Lab Results 02/05/23 02/05/23 02/05/23 Range/Units 10:00 10:03 12:07 WBC 4.22 L (4.50-11.00) K/uL RBC 3.70 L (4.30-5.90) m/uL Hgb 12.5 L (13.5-17.5) gm/dL Hct 36.8 L (37.0-53.0) % MCV 100 (80-100) fL MCH 34 (26-34) pg MCHC 34 (32-36) gm/dL RDW Coeff of Jacinto 12.2 (11.5-15.5) % Plt Count 113 L (140-440) K/uL Neut % (Auto) 83.9 H (42.0-72.0) % Lymph % (Auto) 6.2 L (20-44) % [place] % (Auto) 9.7 (0.0-11.0) % Eos % (Auto) 0.0 (0.0-7.0) % Baso % (Auto) 0.2 (0.0-3.0) % Neut # (Auto) 3.50 (1.7-7.0) K/uL Lymph # (Auto) 0.30 L (0.90-2.90) K/uL [place] # (Auto) 0.40 (0.00-0.90) K/UL Eos # (Auto) 0.00 (0.00-0.50) K/uL Baso # (Auto) 0.00 (0.00-0.30) K/uL INR 0.96 (0.91-1.10) Sodium 131 L (135-149) mmol/L Potassium 3.9 (3.6-5.1) mmol/L Chloride 97 (96-114) mmol/L Carbon Dioxide 27 (20-32) mmol/L BUN 26 (7-30) mg/dL Creatinine 1.7 H (0.5-1.5) mg/dL Estimated GFR 42 ml/min Glucose 168 H (60-115) mg/dL Calcium 8.7 (8.4-10.6) mg/dL Total Bilirubin 0.4 (0.1-1.5) mg/dL Direct Bilirubin 0.1 (0.0-0.5) mg/dL AST 125 H (12-35) U/L ALT 56 H (4-50) U/L Alkaline Phosphatase 120 (40-150) U/L Lactate Baseline 1.7 (0.5-1.9) mmol/L C-Reactive Protein 33.4 H (0.5-1.0) mg/dL Total Protein 7.1 (6.0-8.3) g/dL Albumin 3.8 (3.3-5.0) g/dL TSH 3.610 (0.270-4.200) uIU/mL Urine Color Yellow (Yellow) Urine Appearance Cloudy A (Clear) Urine pH 5.5 (5.0-8.5) Ur Specific [place] 1.020 (1.000-1.030) Urine Protein 3+ A (Negative) Urine Glucose (UA) Negative (Negative) Urine Ketones Trace A (Negative) Urine Blood 1+ A (Negative) Urine Nitrite Negative (Negative) Urine Bilirubin Negative (Negative) Urine Urobilinogen 0.2 (0.2-1.0) Ur Leukocyte Esterase Negative (Negative) Urine RBC 0-2 (0-2) Urine WBC 0-2 (0-5) Ur Squamous Epith Cells Few (None-Few) Amorphous Sediment Moderate A (None) Urine Bacteria None (None) Coarse Granular Casts Moderate A (None) SARS-CoV-2 (PCR) Negative SARS-CoV-2 (Negative) Influenza Type A (PCR) Negative PCR FLU A (Negative) Influenza Type B (PCR) Negative PCR FLU B (Negative) RSV (PCR) Negative PCR RSV (Negative) POC Troponin I 0.02 (0.01-0.04) ng/ml Discharge Plan Discharge Clinical Impression: Alcohol use, Pneumonia Patient Disposition: Admitted As Observation Condition: Improved
[2023-02-05 10:16] LABS: Lactate Sepsis w/Reflex* 1.7 mmol/L (0.5-1.9)
[2023-02-05 10:19] LABS: Basophils Percent Auto 0.2 % (0.0-3.0); Hematocrit 36.8 % (37.0-53.0); Hemoglobin* 12.5 gm/dL (13.5-17.5); Lymphocytes Percent Auto 6.2 % (20-44); Mean Corpuscular HGB Conc 34 gm/dL (32-36); Mean Corpuscular Hemoglobin 34 pg (26-34); Mean Corpuscular Volume 100 fL (80-100); Monocytes Percent Auto 9.7 % (0.0-11.0); Neutrophils Percent Auto 83.9 % (42.0-72.0); Platelet Count* 113 K/uL (140-440); RDW Coefficient of Variation % 12.2 % (11.5-15.5); White Blood Count* 4.22 K/uL (4.50-11.00)
[2023-02-05 10:22] LABS: Slide Review Reflex No
[2023-02-05 10:40] LABS: Albumin* 3.8 g/dL (3.3-5.0); Chloride* 97 mmol/L (96-114); Potassium* 3.9 mmol/L (3.6-5.1); Sodium* 131 mmol/L (135-149)
[2023-02-05 10:42] LABS: Creatinine* 1.7 mg/dL (0.5-1.5); Estimated Glomerular Filt Rate 42 ml/min
[2023-02-05 10:43] LABS: Alanine Aminotransferase* 56 U/L (4-50); Alkaline Phosphatase* 120 U/L (40-150); Aspartate Amino Transferase* 125 U/L (12-35); Bilirubin Direct* 0.1 mg/dL (0.0-0.5); Bilirubin Total* 0.4 mg/dL (0.1-1.5); Blood Urea Nitrogen* 26 mg/dL (7-30); Carbon Dioxide* 27 mmol/L (20-32); Glucose* 168 mg/dL (60-115); Total Protein* 7.1 g/dL (6.0-8.3)
[2023-02-05 10:44] LABS: Calcium* 8.7 mg/dL (8.4-10.6); INR 0.96 (0.91-1.10); Prothrombin Time 13.3 Seconds
[2023-02-05 10:47] LABS: Troponin, Point-of-Care* 0.02 ng/ml (0.01-0.04)
[2023-02-05] MEDS: ACETAMINOPHEN 500 MG TABLET 1000 MG PO (10:50)
[2023-02-05] MEDS: 0.9 % SODIUM CHLORIDE 1000 ml 1,000 ML IV (10:51)
[2023-02-05 10:57] LABS: PCR FLU A Negative PCR FLU A (Negative); PCR FLU B Negative PCR FLU B (Negative); PCR RSV Negative PCR RSV (Negative)
[2023-02-05 11:01] LABS: SARS PCR* Negative SARS-CoV-2 (Negative)
--- NOTE | 2023-02-05 11:25 | CRLHL7_ITS ---
For Patients: As a result of the 21st Century Cures Act, medical imaging exams and procedure reports are released immediately into your electronic medical record. You may view this report before your referring provider. If you have questions, please contact your health care provider. Indication: Fever, B symptoms, history of oral cancer Technique: Volumetric multidetector CT images of the chest, abdomen, and pelvis were obtained after the administration of intravenous contrast. 95 cc Isovue 370 low osmolar intravenous contrast Comparison: CT chest February 25, [address] chest, abdomen and pelvis November 23, 2020 FINDINGS: CHEST The thoracic inlet is unremarkable. The thyroid gland is within normal limits. The thoracic aorta is nonaneurysmal. There is no filling defect to suggest pulmonary embolus. There calcified subcarinal and hilar lymph nodes. There are mild likely reactive left hilar lymph nodes. There is mild to moderate central bronchial thickening with mucoid impaction of the left lower lobe bronchi. There is dense airspace opacification of the left lower lobe consistent with infiltrate. There is basilar atelectasis and parenchymal scar. There is no pneumothorax. The thoracic osseus structures are intact without fracture, lytic, or blastic lesion. The thoracic vertebral body heights are grossly maintained with minimal endplate Schmorl`s defects similar to remote comparison exam. There is no significant spondylolisthesis or displaced fracture. ABDOMEN AND PELVIS The liver is normal in attenuation and size. The portal vein is patent. The spleen is normal in attenuation and size. The gallbladder is unremarkable without radiopaque calculus. There is no intrahepatic or common ductal dilatation. There is moderate thickening of the gastric antrum with minimal gastric mucosal hyperemia and thickening of the gastric rugal folds. The pancreas is normal in enhancement without significant atrophy. The adrenal glands are unremarkable without evidence of adenoma. The kidneys are preserved and corticomedullary differentiation. There is no hydronephrosis or radiopaque calculus. There is a moderate amount of intracolonic stool. There is minimal distal colonic diverticulosis. The appendix is unremarkable without significant inflammatory change. The abdominal aorta is nonaneurysmal with mild to moderate scattered atherosclerotic calcification. There is mild thickening of bladder. Otherwise, the pelvic viscera are grossly within normal limits. There is no pathologically enlarged epigastric, mesenteric, retroperitoneal, or pelvic sidewall lymph node. The anterior abdominal wall is grossly intact without significant hernias. There is no free air or free fluid. Degenerative changes of the bilateral hips and sacroiliac joints are appreciated. The lumbar vertebral body heights are grossly maintained with moderate to severe degenerative disc disease change at the L2-L3 level with anterolisthesis of L4 on L5. This is stable from remote comparison. No evidence of acute osseous abnormality, lytic or blastic lesion. Impression: 1. There is dense airspace opacification of the peripheral left lower lobe consistent with developing pneumonia with likely reactive left hilar lymph nodes and moderate mucoid impaction of lower lobe bronchi. 2. Moderate chronic gastritis changes similar to remote comparison exam. 3. Otherwise, no acute intra-abdominal abnormality. 4. Moderate stool seen throughout the colon. Minimal distal colonic diverticulosis without diverticulitis. 5. Mild thickening of the bladder consistent with cystitis changes. Please note that all CT scans at this facility use dose modulation, iterative reconstruction, and/or weight-based dosing when appropriate to reduce radiation dose to as low as reasonably achievable. Dictated by Rj Pierce MD @ 02/05/2023 1:15:53 PM (Electronically Signed)
[2023-02-05 11:29] LABS: C Reactive Protein* 33.4 mg/dL (0.5-1.0)
[2023-02-05] MEDS: LORazepam 2 MG/ML inj 1 MG IVP (11:33)
[2023-02-05 12:17] LABS: Appearance Urine Cloudy (Clear); Bilirubin Urine Negative (Negative); Blood Urine 1+ (Negative); Color Urine Yellow (Yellow); Glucose Urine Negative (Negative); Ketones Urine Trace (Negative); Leukocyte Esterase Urine Negative (Negative); Nitrite Urine Negative (Negative); Protein Urine 3+ (Negative); Urobilinogen Urine 0.2 (0.2-1.0); pH Urine 5.5 (5.0-8.5)
[2023-02-05 12:29] LABS: Amorphous Sediment Urine Moderate; RBC Urine 0-2 (0-2); Squamous Epithelial Cell Urine Few (None-Few); WBC Urine 0-2 (0-5)
[2023-02-05 12:31] LABS: Coarse Granular Casts Urine Moderate
[2023-02-05] MEDS: AZITHROMYCIN 250 MG TABLET 500 MG PO (13:54)
[2023-02-05] MEDS: cefTRIAXone 1 GM in 0.9 % SODIUM CHLORIDE Mini-bag 100 ML IVPB (13:54)
--- NOTE | 2023-02-05 14:17 | PM.IMHP1 ---
Hospitalist- H&P: HPI History of Present Illness Date Seen: 02/05/23 Chief complaint: sick, shakes Narrative: Antonio Mancini is a 72 year old male with past medical history noted below including hx of alcoholism, marijuana use, squamous cell carcinoma of tongue presenting for generalized weakness. He drinks several drinks daily and states his last drink was 3-4 days ago. He endorses sob, cough, fever, rigors. Last night the patient thought he was having alcohol withdrawal. He had night sweats, tremors. He denied hallucinations. He has had decreased oral intake. Denies chest pain. He presented to ED where temp was noted to be 99.5F. In the ED notable labs was sodium 131, Cr 1.7, AST 125, ALT 56. In the ED CT chest concerning for LLF pna. He was started on IVF, ceftriaxone, azithromycin and admitted for further evaluation. He lives near [place] with his . His daughter is RN in [employer]. 1. There is dense airspace opacification of the peripheral left lower lobe consistent with developing pneumonia with likely reactive left hilar lymph nodes and moderate mucoid impaction of lower lobe bronchi. 2. Moderate chronic gastritis changes similar to remote comparison exam. 3. Otherwise, no acute intra-abdominal abnormality. 4. Moderate stool seen throughout the colon. Minimal distal colonic diverticulosis without diverticulitis. 5. Mild thickening of the bladder consistent with cystitis changes. Review of Systems Status of ROS: Reports: 10 or more systems reviewed and unremarkable except as noted in History and below [facility] Medical History Primary tongue squamous cell carcinoma ?C02.9 - Malignant neoplasm of tongue, unspecified (ICD-10) Anxiety ?F41.9 - Anxiety disorder, unspecified (ICD-10) Surgical History S/P radiation therapy ?Z92.3 - Personal history of irradiation (ICD-10) Status post chemotherapy ?Z92.21 - Personal history of antineoplastic chemotherapy (ICD-10) Social History Smoking Status: Former smoker Second hand tobacco smoke exposure: No How often do you have a drink containing alcohol: never How often do you have six or more drinks on one occasion: Never AUDIT-C Alcohol total score: 0 Non-prescribed substance use: marijuana (any form) service: Yes Meds Home Medications and Allergies Home Medications Medication Instructions Recorded Confirmed Type cyanocobalamin (vitamin B-12) 1,000 mcg PO DAILY 04/02/22 02/05/23 History 1,000 mcg tablet sildenafil 50 mg tablet 50 mg PO DAILY PRN 04/02/22 02/05/23 History aspirin 81 mg tablet,delayed 162 mg PO DAILY 07/02/22 02/05/23 History release alprazolam 1 mg tablet 1 mg PO DAILY PRN anxiety 02/05/23 02/05/23 History Allergies Allergy/AdvReac Type Severity Reaction Status Date / Time No Known Drug Allergies Allergy Verified 02/05/23 12:41 Exam Narrative: Exam Narrative: Gen: no acute distress; mildly disheveled appearance HEENT: NCAT EOMI mmm Neck: Supple CV: RRR normal s1 s2 Lungs: CTAB Abd: Soft,nt, nd Neuro: Alert, oriented, CN grossly intact; nonfocal screening?exam Psych: appropriate affect MSK: age appropriate muscle mass Skin; Warm, dry no rash on face Const: Vital Signs, click to edit/add: Vital Signs - 24 hr 02/05/23 09:45 02/05/23 10:19 02/05/23 10:21 Temperature 101.7 F H Pulse Rate 90 86 Pulse Rate [Pulse Oximeter] 89 Respiratory Rate Blood Pressure 120/94 H Blood Pressure [Ri ght Upper Arm] 133/79 Pulse Oximetry 96 96 94 [facility] 02/05/23 10:30 02/05/23 10:32 02/05/23 10:45 Temperature Pulse Rate 83 88 80 Pulse Rate [Pulse Oximeter] Respiratory Rate Blood Pressure 119/73 Blood Pressure [Ri ght Upper Arm] Pulse Oximetry 93 95 97 [facility] 02/05/23 11:00 02/05/23 11:02 02/05/23 11:15 Temperature Pulse Rate 80 79 77 Pulse Rate [Pulse Oximeter] Respiratory Rate Blood Pressure 126/75 Blood Pressure [Ri ght Upper Arm] Pulse Oximetry 97 96 96 [facility] 02/05/23 11:30 02/05/23 11:31 02/05/23 11:45 Temperature Pulse Rate 74 77 79 Pulse Rate [Pulse Oximeter] Respiratory Rate Blood Pressure 121/74 Blood Pressure [Ri ght Upper Arm] Pulse Oximetry 96 96 90 Oxygen Delivery [facility] 02/05/23 12:27 02/05/23 12:30 02/05/23 12:30 Temperature 99.5 F Pulse Rate 70 75 Pulse Rate [Pulse Oximeter] Respiratory Rate Blood Pressure Blood Pressure [Ri ght Upper Arm] Pulse Oximetry 96 96 Oxygen Delivery [facility] 02/05/23 12:32 02/05/23 12:33 02/05/23 12:45 Temperature 99.5 F Pulse Rate 68 69 73 Pulse Rate [Pulse Oximeter] Respiratory Rate 16 Blood Pressure 115/79 Blood Pressure [Ri ght Upper Arm] Pulse Oximetry 94 94 97 Oxygen Delivery [facility] 02/05/23 13:00 02/05/23 13:01 02/05/23 13:15 Temperature Pulse Rate 73 72 69 Pulse Rate [Pulse Oximeter] Respiratory Rate 16 Blood Pressure 119/70 Blood Pressure [Ri ght Upper Arm] Pulse Oximetry 92 93 92 Oxygen Delivery [facility] Hospitalist - H&P: Result Labs Labs: Short CBC 02/05/23 Range/Units 10:00 WBC 4.22 L (4.50-11.00) K/uL Hgb 12.5 L (13.5-17.5) gm/dL Hct 36.8 L (37.0-53.0) % Plt Count 113 L (140-440) K/uL BMP 02/05/23 10:00 Sodium 131 L Potassium 3.9 Chloride 97 Carbon Dioxide 27 BUN 26 Creatinine 1.7 H Glucose 168 H Calcium 8.7 Liver Function 02/05/23 Range/Units 10:00 Total Bilirubin 0.4 (0.1-1.5) mg/dL Direct Bilirubin 0.1 (0.0-0.5) mg/dL AST 125 H (12-35) U/L ALT 56 H (4-50) U/L Alkaline Phosphatase 120 (40-150) U/L Albumin 3.8 (3.3-5.0) g/dL Urine 02/05/23 Range/Units 12:07 Urine Color Yellow (Yellow) Urine Appearance Cloudy A (Clear) Urine pH 5.5 (5.0-8.5) Ur Specific [place] 1.020 (1.000-1.030) Urine Protein 3+ A (Negative) Urine Glucose (UA) Negative (Negative) Assessment and Plan Assessment and plan (1) Pneumonia: Problem comment: There is dense airspace opacification of the peripheral left lower lobe consistent with developing pneumonia with likely reactive left hilar lymph nodes and moderate mucoid impaction of lower lobe bronchi. Status: Acute Assessment and Plan: continue antibiotics (Ceftriaxone, doxycycline) IVF PT evalution (2) Acute kidney injury: Problem comment: Cr 1.7 on admission; likely pre-renal Status: Acute Assessment and Plan: IVF repeat BMp in AM avoid nephrotoxic agents (3) Alcoholism with alcohol dependence: Problem comment: endorsing withdrawal symptoms last night, states last drink of liquor 3-4 days ago; abnormal LFTs c/w with alcohol liver dx Status: Acute Assessment and Plan: [facility] protocol MW/Thiamine follow LFTs (4) Hyponatremia: Problem comment: hypovolemic hyponatremia, Sodium 131 Status: Acute Assessment and Plan: IVF BMP in AM (5) Anxiety: Status: Acute (6) Primary tongue squamous cell carcinoma: Problem comment: P 16 positive by IHC. T2 N2 Mo Status: Acute (7) Pancytopenia: Problem comment: cell counts at baseline Status: Acute Assessment and Plan: repeat CBC in Am Plan Full code heparin subq for dvt ppx anticipated DC home 1-2 days
--- NOTE | 2023-02-05 14:44 | ED.NURSE ---
Report given to HORACE Ochoa on M/S. Patient went to [facility]. All belongings sent with. Updated daughter, luz maria.
[2023-02-05] MEDS: 0.9 % SODIUM CHLORIDE 1000 ml 1,000 ML 125 ML IV ×2 (16:18→23:45)
[2023-02-05] MEDS: FOLIC ACID 1 MG TABLET PO (16:19)
[2023-02-05] MEDS: THIAMINE IVP (16:45)
--- NOTE | 2023-02-05 17:03 | PC.NURSE ---
Shift Summary: Patient pleasant and cooperative. When patient first arrived to floor appeared comfortable with no symptoms of withdrawal. After going to the bathroom patient has noticeable tremors which he states he has had since about thursday. Patient up with SBA. Denies pain or nausea. Incontinent of bladder x1, other soto patient is continent at baseline.
[2023-02-05] MEDS: ACETAMINOPHEN 325 MG TABLET PO (21:16)
[2023-02-05] MEDS: DOXYCYCLINE HYCLATE 100 MG CAPSULE PO (21:16)
[2023-02-05] MEDS: ALPRAZolam 0.25 MG TABLET 1 MG PO (21:28)
[2023-02-06] VITALS (8 sets, daily range): BP systolic 129–169; BP diastolic 70–94; PULSE 71–89; RESP 16–18; TEMP 36.7–37.9; O2SAT 93–96
[2023-02-06] MEDS: ACETAMINOPHEN 325 MG TABLET PO (03:19)
[2023-02-06] MEDS: OMEPRAZOLE 20 MG CAPSULE DR 40 MG PO (06:07)
--- NOTE | 2023-02-06 06:43 | PC.NURSE ---
End of shift: Pt A&O. Pleasant and cooperative. Pt expressed concern in regard to anxiety and lack of sleep. PRN Xanax given, pt was able to sleep through the night.?PRN Tylenol given x2 for a fever of 101.1 and 100.3. VS otherwise stable. Pt denies n/v. Complains of eye pain, cold wash cloth given and pt stated relief. Denies SOB. Pt sating >90% on RA. SBA to the bathroom.
[2023-02-06 06:47] LABS: Basophils Percent Auto 0.5 % (0.0-3.0); Hematocrit 32.4 % (37.0-53.0); Hemoglobin* 10.9 gm/dL (13.5-17.5); Immature Granulocytes Pct Auto 0.3 %; Lymphocytes Percent Auto 10.4 % (20-44); Mean Corpuscular HGB Conc 34 gm/dL (32-36); Mean Corpuscular Hemoglobin 34 pg (26-34); Mean Corpuscular Volume 100 fL (80-100); Monocytes Percent Auto 16.1 % (0.0-11.0); Neutrophils Percent Auto 72.7 % (42.0-72.0); Platelet Count* 104 K/uL (140-440); RDW Coefficient of Variation % 12.5 % (11.5-15.5); Red Blood Count 3.23 m/uL (4.30-5.90); White Blood Count* 3.86 K/uL (4.50-11.00)
[2023-02-06 06:54] LABS: Slide Review Reflex No
[2023-02-06 07:02] LABS: Albumin* 3.2 g/dL (3.3-5.0)
[2023-02-06 07:03] LABS: Chloride* 101 mmol/L (96-114); Potassium* 4.2 mmol/L (3.6-5.1); Sodium* 133 mmol/L (135-149)
[2023-02-06 07:05] LABS: Bilirubin Total* 0.3 mg/dL (0.1-1.5); Creatinine* 1.4 mg/dL (0.5-1.5); Est. Creatinine Clearance* 50.81; Estimated Glomerular Filt Rate 53 ml/min
[2023-02-06 07:06] LABS: Alanine Aminotransferase* 75 U/L (4-50); Alkaline Phosphatase* 123 U/L (40-150); Aspartate Amino Transferase* 108 U/L (12-35); Blood Urea Nitrogen* 20 mg/dL (7-30); Calcium* 8.2 mg/dL (8.4-10.6); Carbon Dioxide* 27 mmol/L (20-32); Glucose* 101 mg/dL (60-115); Total Protein* 6.2 g/dL (6.0-8.3)
[2023-02-06] MEDS: 0.9 % SODIUM CHLORIDE 1000 ml 1,000 ML 125 ML IV (07:40)
[2023-02-06] MEDS: ASPIRIN 81 MG TABLET EC 162 MG PO (09:19)
[2023-02-06] MEDS: DOXYCYCLINE HYCLATE 100 MG CAPSULE PO ×2 (09:19→20:16)
[2023-02-06] MEDS: CYANOCOBALAMIN (VITAMIN B-12) 500 MCG TABLET 1000 MCG PO (09:19)
[2023-02-06] MEDS: cefTRIAXone 1 GM in 0.9 % SODIUM CHLORIDE Mini-bag 100 ML IVPB (09:44)
--- NOTE | 2023-02-06 14:27 | P.IMPN_ITS ---
Progress Note: A&P Assessment and plan (1) Pneumonia: Problem details: - CT chest: There is dense airspace opacification of the peripheral left lower lobe consistent with developing pneumonia with likely reactive left hilar lymph nodes and moderate mucoid impaction of lower lobe bronchi. - Continue ceftriaxone and doxycycline. - Discharge home when afebrile >24hours. Status: Acute (2) Pancytopenia: Problem details: cell counts at baseline, suspect pancytopenia is secondary to alcohol BM suppression Status: Chronic (3) Hyponatremia: Problem details: hypovolemic hyponatremia, Sodium 133 today, stop IVF and monitor Status: Acute (4) Alcoholism with alcohol dependence: Problem details: - endorsing withdrawal symptoms night before admission, states last drink of liquor 3-4 days ago; abnormal LFTs c/w with alcohol liver dx - No alcohol withdrawal symptoms today or overnight. Continue CIWA protocol Status: Acute (5) Acute kidney injury: Problem details: - Cr 1.7 on admission; likely pre-renal - Improving, Cr 1.4 today which is baseline, stop IVF Status: Acute (6) Primary tongue squamous cell carcinoma: Problem details: - P 16 positive by IHC. T2 N2 Mo - Finished radiation and chemo 4 months ago (probably not the current cause of pancytopenia) Status: Chronic (7) Anxiety: Status: Acute Plan Subcutaneous heparin for VTE prophylaxis, hold this if platelets are less than 100 Subjective Time Seen by Provider: 13:16 Date Seen: 02/06/23 Interval history: Dylan asked me why he was here. We discussed pneumonia. He has been on room air and denies CP or SOB, but had a fever overnight with a T-max 101.1 F. He notes weakness, which he attributes to lying in bed all day. He had physical therapy this morning and is going for a walk with his nurse this afternoon. He was started on ceftriaxone and azithromycin yesterday and the azithromycin got switched to doxycycline yesterday. Exam Narrative: Exam Narrative: General: No acute distress. Awake, alert, oriented x3. Disheveled. No pallor. No jaundice. Oropharynx: Clear. Mucous membranes moist. Cardiovascular: Regular rate and rhythm. No murmurs, gallops, or rubs. Respiratory: Clear to auscultation bilaterally. No wheezes or crackles. Abdomen: Bowel sounds present. Soft, nondistended, nontender. Extremities: No pedal edema. Const: Vital Signs, click to edit/add: Vital Signs - 24 hr 02/05/23 14:45 02/05/23 19:41 02/05/23 21:16 Temperature 99.5 F 101.1 F H Pulse Rate [Pulse Oximeter] 80 Pulse Rate [Right Radial] 67 Respiratory Rate 20 18 Blood Pressure [Ri ght Arm] 136/79 130/83 Pulse Oximetry 99 94 Oxygen Delivery Me thod Room Air Room Air 02/05/23 23:06 02/05/23 23:10 02/06/23 03:00 Temperature 98.8 F 98.8 F 99.5 F Pulse Rate [Pulse Oximeter] 76 76 89 Pulse Rate [Right Radial] 67 Respiratory Rate 18 18 18 Blood Pressure [Ri ght Arm] 128/82 128/82 169/94 H Pulse Oximetry 96 96 95 Oxygen Delivery Me thod Room Air Room Air Room Air 02/06/23 03:19 02/06/23 09:00 02/06/23 09:00 Temperature 100.3 F H 98.1 F 98.1 F Pulse Rate [Pulse Oximeter] 79 79 Pulse Rate [Right Radial] Respiratory Rate 16 16 Blood Pressure [Ri ght Arm] 149/83 H 149/83 H Pulse Oximetry 96 96 Oxygen Delivery Me thod Room Air Room Air 02/06/23 10:42 Temperature 98.8 F Pulse Rate [Pulse Oximeter] 71 Pulse Rate [Right Radial] Respiratory Rate 18 Blood Pressure [Ri ght Arm] 139/78 Pulse Oximetry 93 Oxygen Delivery Me thod Room Air Documenting provider has reviewed patient's vital signs: yes Labs Labs: Laboratory Results - last 24 hr 02/06/23 06:28 WBC 3.86 L RBC 3.23 L Hgb 10.9 L Hct 32.4 L MCV 100 MCH 34 MCHC 34 RDW Coeff of Jacinto 12.5 Plt Count 104 L Neut % (Auto) 72.7 H Lymph % (Auto) 10.4 L [place] % (Auto) 16.1 H Eos % (Auto) 0.0 Baso % (Auto) 0.5 Neut # (Auto) 2.80 Lymph # (Auto) 0.40 L [place] # (Auto) 0.60 Eos # (Auto) 0.00 Baso # (Auto) 0.00 Abs Immat Gran (auto) 0.00 Imm/Tot Granulo (auto) 0.3 Sodium 133 L Potassium 4.2 Chloride 101 Carbon Dioxide 27 BUN 20 Creatinine 1.4 Estimated Creat Clear 50.81 Estimated GFR 53 Glucose 101 Calcium 8.2 L Total Bilirubin 0.3 AST 108 H ALT 75 H Alkaline Phosphatase 123 Total Protein 6.2 Albumin 3.2 L
--- NOTE | 2023-02-06 15:01 | PC.NURSE ---
Shift Summary: Patient pleasant and cooperative. Up with SBA and gait belt. Ambulated in halls with staff, no SOB. Vitals stable and WNL. Denies pain or nausea. Tremors appear to have improved since admission yesterday.
[2023-02-06] MEDS: OXYCODONE 5 MG TABLET PO (17:13)
--- NOTE | 2023-02-06 18:35 | PC.NURSE ---
[id number]- Patient complains of headache unrelieved by tylenol. Oxycodone given with some reported relief. at bedside. Patient up ad jordan, is voiding.
[2023-02-06] MEDS: SODIUM CHLORIDE 0.9 % (FLUSH) 10 ML SYRINGE 5 ML IVF (20:15)
[2023-02-07] MEDS: ALPRAZolam 0.25 MG TABLET 1 MG PO (00:20)
[2023-02-07 03:00] VITALS: BP 149/99; PULSE 70; RESP 16; TEMP 36.9; O2SAT 97
[2023-02-07 06:17] LABS: Basophils Percent Auto 0.9 % (0.0-3.0); Eosinophils Percent Auto 0.9 % (0.0-7.0); Hematocrit 31.1 % (37.0-53.0); Hemoglobin* 10.5 gm/dL (13.5-17.5); Lymphocytes Percent Auto 14.5 % (20-44); Mean Corpuscular HGB Conc 34 gm/dL (32-36); Mean Corpuscular Hemoglobin 34 pg (26-34); Mean Corpuscular Volume 100 fL (80-100); Monocytes Percent Auto 16.9 % (0.0-11.0); Neutrophils Percent Auto 66.8 % (42.0-72.0); Platelet Count* 129 K/uL (140-440); RDW Coefficient of Variation % 12.4 % (11.5-15.5); White Blood Count* 3.32 K/uL (4.50-11.00)
[2023-02-07 06:26] LABS: Slide Review Reflex No
[2023-02-07 06:33] LABS: Chloride* 101 mmol/L (96-114); Potassium* 3.9 mmol/L (3.6-5.1); Sodium* 134 mmol/L (135-149)
[2023-02-07 06:36] LABS: Blood Urea Nitrogen* 20 mg/dL (7-30); Calcium* 8.5 mg/dL (8.4-10.6); Carbon Dioxide* 24 mmol/L (20-32); Creatinine* 1.3 mg/dL (0.5-1.5); Est. Creatinine Clearance* 54.72; Estimated Glomerular Filt Rate 58 ml/min; Glucose* 94 mg/dL (60-115)
--- NOTE | 2023-02-07 06:51 | PC.NURSE ---
End of Shift: Pt pleasant and cooperative throughout shift, AOx3. Remained afebrile throughout shift, denies pain aside from some discomfort noted in neck. Pt requested PRN Xanax at HS to help him sleep, tolerated well. Ambulatory independently, ambulated in halls x1. Continent with bladder, no BM throughout shift.
[2023-02-07] MEDS: OMEPRAZOLE 20 MG CAPSULE DR 40 MG PO (06:55)
[2023-02-07 07:30] VITALS: BP 133/79; PULSE 59; RESP 18; TEMP 36.8; O2SAT 97
[2023-02-07 07:33] VITALS: PULSE 59; RESP 18
[2023-02-07] MEDS: ASPIRIN 81 MG TABLET EC 162 MG PO (09:02)
[2023-02-07] MEDS: OXYCODONE 5 MG TABLET PO (09:02)
[2023-02-07] MEDS: CYANOCOBALAMIN (VITAMIN B-12) 500 MCG TABLET 1000 MCG PO (09:02)
[2023-02-07] MEDS: DOXYCYCLINE HYCLATE 100 MG CAPSULE PO (09:02)
[2023-02-07] MEDS: SODIUM CHLORIDE 0.9 % (FLUSH) 10 ML SYRINGE 5 ML IVF (09:03)
--- NOTE | 2023-02-07 09:53 | PM.DS1 ---
DS: Providers Provider Time Seen by Provider: 09:27 Date Seen: 02/07/23 Date of admission: 02/05/23 14:44 Primary care physician: Stephon Crain MD Admitting Clinician: Kwadwo Garay MD Consults: 02/06/23 07:00 Consult to Physical Therapy [CONS] Routine Comment: Reason(s) for PT Consult:: Evaluate and Treat Any Restrictions?:: No Restrictions Attending Physician on discharge: Kwadwo Garay MD Date of Discharge: 02/07/23 DS: Diagnosis Discharge Diagnosis (1) Pancytopenia: Status: Chronic Problem details: cell counts at baseline, suspect pancytopenia is secondary to alcohol BM suppression, f/u with PCP (2) Hyponatremia: Status: Acute Problem details: hypovolemic hyponatremia, Sodium 134 today, okay to d/c home (3) Alcoholism with alcohol dependence: Status: Acute Problem details: - endorsing withdrawal symptoms night before admission, states last drink of liquor 3-4 days prior to admit; abnormal LFTs c/w with alcohol liver dx - No alcohol withdrawal symptoms today or overnight. CIWA scores 0-1. - 02/07/23 I spoke with patient about alcohol use and he was motivated to stop alcohol use. He said he would be able to stop it cold turkey and had recognize that it got out of control. (4) Acute kidney injury: Status: Acute Problem details: - Cr 1.7 on admission; likely pre-renal - Improving, Cr 1.3 today which is baseline, IVF were stopped yesterday (5) Pneumonia: Status: Acute Problem details: - CT chest: There is dense airspace opacification of the peripheral left lower lobe consistent with developing pneumonia with likely reactive left hilar lymph nodes and moderate mucoid impaction of lower lobe bronchi. - has not been febrile for 24 hours, still having night sweats, discharge home on Vantin and doxycycline for a total of 5 days (6) Primary tongue squamous cell carcinoma: Status: Chronic Problem details: - P 16 positive by IHC. T2 N2 Mo - Finished radiation and chemo 4 months ago (probably not the current cause of pancytopenia) (7) Constipation: Status: Acute Problem details: prn miralax, may also need senna daily. f/u with PCP DS: Summary Hospital Course Hospital Course: 72-year-old male with history oral cancer, not currently on radiation or chemo who developed a right lower lobe pneumonia. He was treated in the hospital with ceftriaxone and doxycycline. He has been afebrile now for over 24 hours and is not requiring any oxygen. Discharge home. His daughter, Janee, who is 1 of our clinic RNs came in this morning and I updated her as well. For further details please see diagnoses above. Time Spent with Patient Time attestation: Total time spent providing and/or coordinating discharge services: Exam Narrative: Exam Narrative: General: No acute distress. Awake, alert, oriented. No pallor. No jaundice. Oropharynx: Clear. Mucous membranes moist. Cardiovascular: Regular rate and rhythm. No murmurs, gallops, or rubs. Respiratory: Clear to auscultation bilaterally. No wheezes or crackles. Const: Vital Signs, click to edit/add: Vital Signs - 24 hr 02/06/23 10:42 02/06/23 15:30 02/06/23 15:40 Temperature 98.8 F 98.5 F Pulse Rate [Pulse Oximeter] 71 81 81 Pulse Rate [Right Radial] 81 81 Respiratory Rate 18 18 18 Blood Pressure [Ri ght Arm] 139/78 155/93 H Pulse Oximetry 93 96 Oxygen Delivery Me thod Room Air Room Air 02/06/23 19:00 02/06/23 23:00 02/06/23 23:00 Temperature 99.1 F 99 F Pulse Rate [Pulse Oximeter] 78 71 Pulse Rate [Right Radial] Respiratory Rate 16 16 16 Blood Pressure [Ri ght Arm] 132/70 129/86 Pulse Oximetry 96 96 Oxygen Delivery Me thod Room Air Room Air 02/07/23 03:00 02/07/23 07:30 02/07/23 07:33 Temperature 98.4 F 98.2 F Pulse Rate [Pulse Oximeter] 70 59 L 59 L Pulse Rate [Right Radial] 59 L 59 L Respiratory Rate 16 18 18 Blood Pressure [Ri ght Arm] 149/99 H 133/79 Pulse Oximetry 97 97 Oxygen Delivery Me thod Room Air Room Air Documenting provider has reviewed patient's vital signs: yes DS: Data Data Completed and Pending Completed studies during hospitalization: Ordering Physician: Ana Maria Matthews M.D. Date of Service: 02/05/23 Procedure(s): XR chest 1V portable Accession Number(s): [id number] cc: Ana Maria Matthews M.D.; Stephon Crain M.D.~ For Patients: As a result of the Cures Act, medical imaging exams and procedure reports are released immediately into your electronic medical record. You may view this report before your referring provider. If you have questions, please contact your health care provider. INDICATION: Fever TECHNIQUE: Chest 1 view COMPARISON: None FINDINGS: Cardiovascular and mediastinum: Mild tortuosity of the descending thoracic aorta. Lungs and pleural spaces: Lungs are clear. No sign of infiltrate or mass. No sign of pleural effusion. No pneumothorax. Bones and soft tissues: No significant findings. IMPRESSION: No acute findings. Dictated by Travon Ch MD @ 02/05/2023 10:54:33 AM (Electronically Signed) Ordering Physician: Ana Maria Matthews M.D. Date of Service: 02/05/23 Procedure(s): CT chest abdomen pelv w con Accession Number(s): [id number] cc: Ana Maria Matthews M.D.; Stephon Crain M.D.~ For Patients: As a result of the Cures Act, medical imaging exams and procedure reports are released immediately into your electronic medical record. You may view this report before your referring provider. If you have questions, please contact your health care provider. Indication: Fever, B symptoms, history of oral cancer Technique: Volumetric multidetector CT images of the chest, abdomen, and pelvis were obtained after the administration of intravenous contrast. 95 cc Isovue 370 low osmolar intravenous contrast Comparison: CT chest February 25, [address] chest, abdomen and pelvis November 23, 2020 FINDINGS: CHEST The thoracic inlet is unremarkable. The thyroid gland is within normal limits. The thoracic aorta is nonaneurysmal. There is no filling defect to suggest pulmonary embolus. There calcified subcarinal and hilar lymph nodes. There are mild likely reactive left hilar lymph nodes. There is mild to moderate central bronchial thickening with mucoid impaction of the left lower lobe bronchi. There is dense airspace opacification of the left lower lobe consistent with infiltrate. There is basilar atelectasis and parenchymal scar. There is no pneumothorax. The thoracic osseus structures are intact without fracture, lytic, or blastic lesion. The thoracic vertebral body heights are grossly maintained with minimal endplate Schmorl`s defects similar to remote comparison exam. There is no significant spondylolisthesis or displaced fracture. ABDOMEN AND PELVIS The liver is normal in attenuation and size. The portal vein is patent. The spleen is normal in attenuation and size. The gallbladder is unremarkable without radiopaque calculus. There is no intrahepatic or common ductal dilatation. There is moderate thickening of the gastric antrum with minimal gastric mucosal hyperemia and thickening of the gastric rugal folds. The pancreas is normal in enhancement without significant atrophy. The adrenal glands are unremarkable without evidence of adenoma. The kidneys are preserved and corticomedullary differentiation. There is no hydronephrosis or radiopaque calculus. There is a moderate amount of intracolonic stool. There is minimal distal colonic diverticulosis. The appendix is unremarkable without significant inflammatory change. The abdominal aorta is nonaneurysmal with mild to moderate scattered atherosclerotic calcification. There is mild thickening of bladder. Otherwise, the pelvic viscera are grossly within normal limits. There is no pathologically enlarged epigastric, mesenteric, retroperitoneal, or pelvic sidewall lymph node. The anterior abdominal wall is grossly intact without significant hernias. There is no free air or free fluid. Degenerative changes of the bilateral hips and sacroiliac joints are appreciated. The lumbar vertebral body heights are grossly maintained with moderate to severe degenerative disc disease change at the L2-L3 level with anterolisthesis of L4 on L5. This is stable from remote comparison. No evidence of acute osseous abnormality, lytic or blastic lesion. Impression: 1. There is dense airspace opacification of the peripheral left lower lobe consistent with developing pneumonia with likely reactive left hilar lymph nodes and moderate mucoid impaction of lower lobe bronchi. 2. Moderate chronic gastritis changes similar to remote comparison exam. 3. Otherwise, no acute intra-abdominal abnormality. 4. Moderate stool seen throughout the colon. Minimal distal colonic diverticulosis without diverticulitis. 5. Mild thickening of the bladder consistent with cystitis changes. Please note that all CT scans at this facility use dose modulation, iterative reconstruction, and/or weight-based dosing when appropriate to reduce radiation dose to as low as reasonably achievable. Dictated by Rj Pierce MD @ 02/05/2023 1:15:53 PM (Electronically Signed) Labs on day of discharge: Labs from last 24 hours 02/07/23 05:53 WBC 3.32 L RBC 3.10 L Hgb 10.5 L Hct 31.1 L MCV 100 MCH 34 MCHC 34 RDW Coeff of Jacinto 12.4 Plt Count 129 L Neut % (Auto) 66.8 Lymph % (Auto) 14.5 L [place] % (Auto) 16.9 H Eos % (Auto) 0.9 Baso % (Auto) 0.9 Neut # (Auto) 2.20 Lymph # (Auto) 0.50 L [place] # (Auto) 0.60 Eos # (Auto) 0.00 Baso # (Auto) 0.00 Abs Immat Gran (auto) 0.00 Imm/Tot Granulo (auto) 0.0 Sodium 134 L Potassium 3.9 Chloride 101 Carbon Dioxide 24 BUN 20 Creatinine 1.3 Estimated Creat Clear 54.72 Estimated GFR 58 Glucose 94 Calcium 8.5 Preliminary micro results at discharge 02/05/23 10:43 Blood Culture - Preliminary Blood NO GROWTH AFTER 24 HOURS 02/05/23 10:00 Blood Culture - Preliminary Blood NO GROWTH AFTER 24 HOURS Discharge Plan Discharge Disposition: Home, Self-Care Date of Admission: 02/05/23 14:44 Attending Provider on Discharge: Coral Jain Primary Care Provider: Stephon Crain Condition: Improved Anticipated Discharge Date/Time: 02/07/23 10:05 Discharge Medications: New doxycycline hyclate 100 mg Capsule 100 mg PO BID 3 Days Qty: 6 0RF polyethylene glycol 3350 [Miralax] 17 gram/dose powder 17 g PO DAILY PRN (Reason: constipation) Qty: 119 0RF cefpodoxime 200 mg tablet 200 mg PO BID 3 Days Qty: 6 0RF Rx Instructions: must administer with a meal/food Continued cyanocobalamin (vitamin B-12) 1,000 mcg tablet 1,000 mcg PO DAILY Patient Comments: TAKE 1 TABLET BY MOUTH EVERY DAY sildenafil 50 mg tablet 50 mg PO DAILY PRN Patient Comments: TAKE 1 TAB 1 HOUR PRIOR TO INTERCOURSE aspirin 81 mg tablet,delayed release (DR/EC) 162 mg PO DAILY alprazolam 1 mg tablet 1 mg PO DAILY PRN (Reason: anxiety) Discharge Orders: Discharge Order (Routine); Ordered 02/07/23 Ordered By: Coral Jain Patient Education: Bacterial Pneumonia (DC) Additional Instructions: Reduce consumption of and consider avoiding alcohol. Activity Level: No Restrictions Discharge Diet: Regular Follow Up Appointments: Stephon Crain MD [Primary Care Provider] - (5-7 days with CBC, CMP) Forms: [employer] Info Instructions
--- NOTE | 2023-02-07 10:07 | RESP.RT ---
PEP instruction and return demonstrations by patient . Good effort and chest shake, had patient feel chest shake to help with understanding of and use. IS done with patient explaining slow deep breaths keeping float in the middle to help control breath. Patiet understands use of both and verbally states so.
[2023-02-07] MEDS: cefTRIAXone 1 GM in 0.9 % SODIUM CHLORIDE Mini-bag 100 ML IVPB (10:17)
[2023-02-07 10:50] VITALS: BP 119/70; PULSE 69; RESP 18; TEMP 36.8
--- NOTE | 2023-02-07 11:41 | PC.NURSE ---
Discharge. pt has been very pleasant. GONZALEZ this am and he got 5 mg po oxycodone with relief. AOx4. SL was patent and he got IV antibiotics and later it was d/c intact. no fever. he is eating, drinking and voiding with no problems. he is up ab jordan./ went over discharge packet with pt. went over medications, appointment, instruction and education. Pt went over and signed personal belonging sheet. he got a w/c ride out his daughter was here and is loving and caring and she gave him a ride home.
== END 2023-02-07 11:20 | disposition home or self-care (01) | DRG 194 ==
LOC: ED 14:11 → MEDSURG 14:45
PROVIDERS: Family Medicine; Admitting Provider Hospitalist; Emergency Provider Emergency Medicine; PCP Internal Medicine; Visit Provider Hospitalist
DX: J18.9 Pneumonia, unspecified organism (principal); D61.818 Other pancytopenia; E87.1 Hypo-osmolality and hyponatremia; N17.9 Acute kidney failure, unspecified; F10.20 Alcohol dependence, uncomplicated; F41.9 Anxiety disorder, unspecified; R45.1 Restlessness and agitation; K59.00 Constipation, unspecified; Z87.891 Personal history of nicotine dependence; Z85.810 Personal history of malignant neoplasm of tongue
CPT/HCPCS: 36415; 71045; 71260; 74177; 80048; 80053; 80076; 81001; 83605; 84443; 84484; 85025; 85610; 86140; 87040; 87631; 93005; 94664; 97116; 97161; 99284; 99285; A9270; J0696; J2060; J3411; J7030; Q9967

== ENCOUNTER 2023-02-17 09:12 | Outpatient (CLI) | payer MEDICARE, SELFPAY | END 2023-02-17 09:13 | disposition home or self-care (01) | LOC: NFLDREF 09:14 | PROVIDERS: PCP Internal Medicine; Visit Provider Internal Medicine | DX: D64.9 Anemia, unspecified (principal); I10 Essential (primary) hypertension; E78.5 Hyperlipidemia, unspecified | CPT/HCPCS: 80053 ==

== ENCOUNTER 2023-04-29 11:21 | Emergency (ER) | payer MEDICARE, SELFPAY ==
[2023-04-29] VITALS (20 sets, daily range): BP systolic 103–140; BP diastolic 72–99; PULSE 85–120; RESP 16; TEMP 36.5; O2SAT 94–99; BMI 26.9
--- NOTE | 2023-04-29 11:37 | ED.GENADULT ---
HPI - General Adult General Chief complaint: Weakness Stated complaint: Afib Time Seen by Provider: 04/29/23 11:24 History of Present Illness HPI narrative: This 72-year-old male comes in from a clinic appointment because of atrial fibrillation with rapid ventricular response. The patient states that he was at a dentist appointment where was noted that his blood pressure was normal but his heart rate was increased at that time. He thinks that he may have had this rhythm for the past week or so. He is otherwise in good health currently. He was treated for a oral cancer a couple years ago and states that he has been doing well since then. He did have a cardiac workup recently including a stress test which was negative. He also had CT angio of the chest a couple months ago with negative findings. He is not on any anticoagulants and does have a history of thrombocytopenia. Related Data Home Medications Medication Instructions Recorded Confirmed aspirin 81 mg tablet,delayed 162 mg PO DAILY 07/02/22 04/29/23 release cyanocobalamin (vitamin B-12) 500 mcg PO DAILY 02/17/23 04/29/23 1,000 mcg tablet folic acid 1 mg tablet 1 mg PO .prn 02/17/23 04/29/23 Previous Rx's Medication Instructions Recorded alprazolam 1 mg tablet 1 mg PO DAILY PRN anxiety #60 tabs 03/05/23 apixaban 5 mg (74 tabs) tablets in See Rx Instructions PO .COMPLEX 04/29/23 a dose pack (Laiyaoyao DVT-PE Treat #74 ea 30D Start) metoprolol succinate 25 mg 25 mg PO DAILY #60 tabs 04/29/23 tablet,extended release 24 hr Allergies Allergy/AdvReac Type Severity Reaction Status Date / Time No Known Drug Allergies Allergy Verified 04/29/23 11:25 Review of Systems Status of ROS: Reports: 10 or more systems reviewed and unremarkable except as noted in History and below Narrative: Constitutional: No fevers, no weight gain or loss. Eyes: No discharge. No vision changes. HENT: No congestion, no sore throat, no ear pain. Cardiovascular: No chest pain. He reports increased heart rate. Respiratory: No shortness of breath, no wheezes, no cough. Gastrointestinal: No abdominal pain, no vomiting, no diarrhea. Genitourinary: No dysuria, no hematuria. Musculoskeletal: Normal range of motion. Skin: No rashes, no pruritis. Neurological: No dizziness, weakness, sensory change, speech change. Endo/Heme/Allergies: No bruising or bleeding. No polydipsia. Pysch: no suicidality, no anxiety, no insomnia. All other systems reviewed and are negative. 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.9 - Malignant neoplasm of tongue, unspecified (ICD-10) Anxiety ?F41.9 - Anxiety disorder, unspecified (ICD-10) Surgical History (Updated 02/11/23 @ 09:10 by Kiara Daniel ~ PSR) History of vasectomy (06/02/03) ?Z98.52 - Vasectomy status (ICD-10) History of umbilical hernia repair (10/18/90) ?Z98.890 - Other specified postprocedural states (ICD-10) ?Z87.19 - Personal history of other diseases of the digestive system (ICD-10) History of nasal septoplasty (10/18/90) ?Z98.890 - Other specified postprocedural states (ICD-10) S/P radiation therapy ?Z92.3 - Personal history of irradiation (ICD-10) Status post chemotherapy ?Z92.21 - Personal history of antineoplastic chemotherapy (ICD-10) Social History What is your current living situation?: I presently have a place to live Problems where you live: no known problems Problems where you live details: N/A In the past 12 months, utilities in danger of being shut off: no In past 12 months, lack of transportation kept you from medical appts, meetings, work, or getting things needed for daily living: no In the past 12 mos, have been you worried that your food would run out before you had money to buy more?: never true In the past 12 mos, the food you bought just didn't last and you didn't have money to buy more?: never true Smoking Status: Former smoker Second hand tobacco smoke exposure: No How often do you have a drink containing alcohol: 4 or more times a week Alcohol type: hard liquor How many standard drinks containing alcohol do you have on a typical day: 3 or 4 How often do you have six or more drinks on one occasion: Monthly AUDIT-C Alcohol total score: 7 Non-prescribed substance use: marijuana (any form) Non-prescribed substance use details: marijuana products daily Caffeine: No How often does anyone, including family, friends and others, physically hurt you: never How often does anyone, including family, friends and others, insult or talk down to you: never How often does anyone, including family, friends and others, threaten you with harm: never How often does anyone, including family, friends and others, scream or curse at you: never Little interest or pleasure in doing things: not at all Feeling down, depressed, or hopeless: several days service: Yes Exam Narrative: Exam Narrative: Constitutional: Well-developed, well-nourished, no acute distress. HEENT: Normocephalic, atraumatic. Neck: Normal range of motion. Nontender. Supple. Heart: Irregular. No murmurs. Tachycardia. Intact distal pulses. Lungs: Clear to auscultation. No chest discomfort. No wheezes, rhonchi, or rales. Abdomen: Normal bowel sounds. Nontender. No rebound tenderness. Genitalia: Deferred. Back: No midline tenderness. Normal range of motion. Extremities: Normal range of motion. No injury. No pedal edema. Skin: Intact. No rash. Warm. No erythema or pallor. Neurologic: No altered sensation. No weakness. Alert and oriented. Psychiatric: No suicidality. No anxiety or depression. No insomnia. Nursing notes and vitals signs are reviewed. Const: Vital Signs, click to edit/add: Vital Signs - 24 hr 04/29/23 11:26 04/29/23 11:30 04/29/23 11:51 Temperature Pulse Rate 85 Pulse Rate [Pulse Oximeter] 115 H Respiratory Rate 16 Blood Pressure Blood Pressure [Ri ght Upper Arm] 140/99 H Pulse Oximetry 97 95 97 Oxygen Delivery Me thod Room Air 04/29/23 11:52 04/29/23 11:53 04/29/23 11:57 Temperature Pulse Rate 97 87 99 Pulse Rate [Pulse Oximeter] Respiratory Rate Blood Pressure 103/86 114/81 Blood Pressure [Ri ght Upper Arm] Pulse Oximetry 97 96 98 Oxygen Delivery Me thod 04/29/23 12:00 04/29/23 12:02 04/29/23 12:03 Temperature Pulse Rate 90 93 86 Pulse Rate [Pulse Oximeter] Respiratory Rate Blood Pressure 110/72 Blood Pressure [Ri ght Upper Arm] Pulse Oximetry 98 95 99 Oxygen Delivery Me thod 04/29/23 12:15 04/29/23 12:17 04/29/23 12:18 Temperature Pulse Rate 102 H 96 92 Pulse Rate [Pulse Oximeter] Respiratory Rate Blood Pressure 116/96 H Blood Pressure [Ri ght Upper Arm] Pulse Oximetry 97 98 98 Oxygen Delivery Me thod 04/29/23 12:30 04/29/23 12:32 04/29/23 12:45 Temperature Pulse Rate 98 114 H 104 H Pulse Rate [Pulse Oximeter] Respiratory Rate Blood Pressure 106/94 H Blood Pressure [Ri ght Upper Arm] Pulse Oximetry 96 94 96 Oxygen Delivery Me thod 04/29/23 12:46 04/29/23 13:00 04/29/23 13:01 Temperature 97.7 F Pulse Rate 109 H 117 H Pulse Rate [Pulse Oximeter] Respiratory Rate Blood Pressure 120/95 H Blood Pressure [Ri ght Upper Arm] Pulse Oximetry 98 97 Oxygen Delivery Me thod Course Vital Signs Vital signs: Initial Vital Signs Temperature Source Temporal Artery Scan 04/29/23 11:26 Pulse Rate 115 H 04/29/23 11:26 Pulse Rhythm Irregular 04/29/23 11:26 Respiratory Rate 16 04/29/23 11:26 Blood Pressure 140/99 H 04/29/23 11:26 Blood Pressure Mean 112 H 04/29/23 11:26 Blood Pressure Position Semi-Fowlers 04/29/23 11:26 Pulse Oximetry 97 04/29/23 11:26 Oxygen Delivery Method Room Air 04/29/23 11:26 Vital Signs Pulse Rate 115 H 04/29/23 11:26 Respiratory Rate 16 04/29/23 11:26 Blood Pressure 140/99 H 04/29/23 11:26 Pulse Oximetry 97 04/29/23 11:26 Oxygen Delivery Method Room Air 04/29/23 11:26 Temperature 97.7 F 04/29/23 12:46 Pulse Rate 117 H 04/29/23 13:01 Respiratory Rate 16 04/29/23 11:26 Blood Pressure 120/95 H 04/29/23 13:01 Pulse Oximetry 97 04/29/23 13:01 Oxygen Delivery Method Room Air 04/29/23 11:26 Medical Decision Making MDM Narrative Medical decision making narrative: This patient was sent here from clinic because of a new onset of atrial fibrillation with rapid ventricular response. His symptoms began possibly a week ago so he is not a candidate for cardioversion as he is not anticoagulated sufficiently. He is taking 2 baby aspirin daily. An IV was established and he received 20 mg of diltiazem which brought rate control but is rhythm continued in atrial fibrillation. The patient is not reporting any other symptoms. He has reassuring lab results today with a troponin at 0. He does have a history of thrombocytopenia and anemia. I did contact the hospitalist tong carrier, Dr. Boland, regarding advice for going forward for this patient. Today his platelet count is normal and looking over past results over the past several months he is showing sufficient blood counts. It is recommended that he discontinue aspirin and began taking Eliquis. He also received a prescription for metoprolol succinate 25 mg. He received both of these medicines also in the emergency department here today. I advised him to follow-up with his primary physician or return if ever having any symptoms or if his rate is uncontrolled. Lab Data Labs: Lab Results 04/29/23 Range/Units 11:35 WBC 3.62 L (4.50-11.00) K/uL RBC 3.61 L (4.30-5.90) m/uL Hgb 12.2 L (13.5-17.5) gm/dL Hct 36.9 L (37.0-53.0) % MCV 102 H (80-100) fL MCH 34 (26-34) pg MCHC 33 (32-36) gm/dL RDW Coeff of Jacinto 13.9 (11.5-15.5) % Plt Count 187 (140-440) K/uL Neut % (Auto) 64.4 (42.0-72.0) % Lymph % (Auto) 19.3 L (20-44) % [place] % (Auto) 12.4 H (0.0-11.0) % Eos % (Auto) 2.5 (0.0-7.0) % Baso % (Auto) 1.4 (0.0-3.0) % Neut # (Auto) 2.30 (1.7-7.0) K/uL Lymph # (Auto) 0.70 L (0.90-2.90) K/uL [place] # (Auto) 0.40 (0.00-0.90) K/UL Eos # (Auto) 0.10 (0.00-0.50) K/uL Baso # (Auto) 0.10 (0.00-0.30) K/uL Abs Immat Gran (auto) 0.00 (0.00-0.30) K/uL Imm/Tot Granulo (auto) 0.0 % Sodium 138 (135-149) mmol/L Potassium 5.2 H (3.6-5.1) mmol/L Chloride 102 (96-114) mmol/L Carbon Dioxide 30 (20-32) mmol/L Anion Gap 6 L (7-15) mEq/L BUN 27 (7-30) mg/dL Creatinine 1.5 (0.5-1.5) mg/dL Estimated Creat Clear 47.42 Estimated GFR 49 ml/min Glucose 94 (60-115) mg/dL Calcium 9.8 (8.4-10.6) mg/dL Magnesium 2.0 (1.5-2.6) mg/dL POC Troponin I 0.01 (0.01-0.04) ng/ml ECG Data Attestation: I personally reviewed and interpreted this ECG as follows: Interpretation: Atrial fibrillation with rapid ventricular response. Rate is 123 beats per minute. There are no specific ST or T-wave abnormalities. Discharge Plan Discharge Clinical Impression: Atrial fibrillation with rapid ventricular response Patient Disposition: Home, Self-Care Condition: Stable Additional Instructions: Take metoprolol and Eliquis as prescribed. Follow up with primary physician in the next week or to for review of medications and plans going forward. Return if worsening symptoms occur. Prescriptions: New metoprolol succinate 25 mg tablet extended release 24 hr 25 mg PO DAILY Qty: 60 2RF Eliquis DVT-PE Treat 30D Start 5 mg (74 tabs) tablets,dose pack See Rx Instructions PO .COMPLEX Qty: 74 0RF Rx Instructions: orally per package directions No Action cyanocobalamin (vitamin B-12) 1,000 mcg tablet 500 mcg PO DAILY Patient Comments: TAKE 1 TABLET BY MOUTH EVERY DAY aspirin 81 mg tablet,delayed release (DR/EC) 162 mg PO DAILY folic acid 1 mg tablet 1 mg PO .prn alprazolam 1 mg tablet 1 mg PO DAILY PRN (Reason: anxiety) Qty: 60 0RF Follow Up/Referrals: Stephon Crain MD [Primary Care Provider] - Stand Alone Forms: MyHealth Info Instructions
[2023-04-29] MEDS: dilTIAZem 5 MG/ML inj 20 MG IVP (11:45)
[2023-04-29 11:51] LABS: Troponin, Point-of-Care* 0.01 ng/ml (0.01-0.04)
[2023-04-29 11:57] LABS: Basophils Percent Auto 1.4 % (0.0-3.0); Eosinophils Percent Auto 2.5 % (0.0-7.0); Hematocrit 36.9 % (37.0-53.0); Hemoglobin* 12.2 gm/dL (13.5-17.5); Lymphocytes Percent Auto 19.3 % (20-44); Mean Corpuscular HGB Conc 33 gm/dL (32-36); Mean Corpuscular Hemoglobin 34 pg (26-34); Mean Corpuscular Volume 102 fL (80-100); Monocytes Percent Auto 12.4 % (0.0-11.0); Neutrophils Percent Auto 64.4 % (42.0-72.0); Platelet Count* 187 K/uL (140-440); RDW Coefficient of Variation % 13.9 % (11.5-15.5); Red Blood Count 3.61 m/uL (4.30-5.90); White Blood Count* 3.62 K/uL (4.50-11.00)
[2023-04-29 11:59] LABS: Slide Review Reflex No
[2023-04-29 12:13] LABS: Chloride* 102 mmol/L (96-114); Potassium* 5.2 mmol/L (3.6-5.1); Sodium* 138 mmol/L (135-149)
[2023-04-29 12:16] LABS: Anion Gap 6 mEq/L (7-15); Blood Urea Nitrogen* 27 mg/dL (7-30); Calcium* 9.8 mg/dL (8.4-10.6); Carbon Dioxide* 30 mmol/L (20-32); Creatinine* 1.5 mg/dL (0.5-1.5); Est. Creatinine Clearance* 47.42; Estimated Glomerular Filt Rate 49 ml/min; Glucose* 94 mg/dL (60-115)
--- NOTE | 2023-04-29 12:40 | ED.NURSE ---
Pt ambulatory independently to the restroom, tolerates ambulation well.
[2023-04-29] MEDS: METOPROLOL SUCCINATE (XL) 25 MG TAB PO (13:30)
[2023-04-29] MEDS: APIXABAN 5 MG TABLET 10 MG PO (13:30)
== END 2023-04-29 13:37 | disposition home or self-care (01) ==
PROVIDERS: Emergency Provider Emergency Medicine Emergency Medical Services; PCP Internal Medicine
DX: I48.20 Chronic atrial fibrillation, unspecified (principal)
CPT/HCPCS: 36415; 80048; 83735; 84484; 85025; 93005; 94761; 99284; 99285; A9270

== ENCOUNTER 2023-05-06 08:23 | Outpatient (CLI) | payer MEDICARE, SELFPAY | END 2023-05-06 08:24 | disposition home or self-care (01) | LOC: NFLDREF 12:08 | PROVIDERS: PCP Internal Medicine; Referring Provider Internal Medicine; Visit Provider Internal Medicine | DX: I48.91 Unspecified atrial fibrillation (principal) | CPT/HCPCS: 85610 ==

== ENCOUNTER 2023-05-25 10:10 | Outpatient (RCR) | payer MEDICARE, SELFPAY ==
[2023-05-22 12:13] LABS: Free T4 Free Thyroxine* 1.01 ng/dL (0.70-1.85)
[2023-05-24 02:01] LABS: Free T3 2.9 pg/mL (2.5-4.3)
== END 2023-11-18 23:59 | disposition home or self-care (01) ==
LOC: CCIC 10:10
PROVIDERS: PCP Internal Medicine; Referring Provider Internal Medicine; Visit Provider Physician Assistant
DX: C01 Malignant neoplasm of base of tongue (principal); R79.89 Other specified abnormal findings of blood chemistry; I48.91 Unspecified atrial fibrillation; I35.8 Other nonrheumatic aortic valve disorders; F10.20 Alcohol dependence, uncomplicated; Z79.01 Long term (current) use of anticoagulants; E03.8 Other specified hypothyroidism
CPT/HCPCS: 36415; 84439; 84443; 84481; 99212; 99215

== ENCOUNTER 2023-06-24 10:46 | Outpatient (CLI) | payer MEDICARE, SELFPAY | END 2023-06-24 10:47 | disposition home or self-care (01) | LOC: NFLDREF 06-25 11:39 | PROVIDERS: PCP Internal Medicine; Referring Provider Internal Medicine; Visit Provider Internal Medicine | DX: Z79.01 Long term (current) use of anticoagulants (principal) | CPT/HCPCS: 85610 ==

== ENCOUNTER 2023-08-28 12:47 | Outpatient (CLI) | payer OTHER, SELFPAY ==
--- OUTSIDE RECORDS SUMMARY | 2023-08-28 12:53 | XMS_ITS | Referral Summary ---
Author Name Unknown Organization [facility] Address [address] [place] [address] Care Team Providers Care System Engineer Name Role Phone Elsewhere, Pcp Primary Care Provider Unavailabl e Source Comments Patient records contain information from all sites at [facility]. For routine questions regarding patient records, call [phone] during business hours, M-F 8:00 AM - 5:00 PM Central Time. Record requests for emergency care only can be directed to [phone] at any time.[facility] Allergies Active Allergy Reactions Criticality Noted Date Comments Doxazosin Anxiety 05/14/2011 Medications Medication Sig Dispensed Refills Start Date End Date Status aspirin-calcium carbonate 81 mg-300 mg calcium(777 mg) tablet Take by mouth. 0 09/08/2008 Active ALPRAZolam (XANAX) 1 mg tablet as needed. 0 06/25/2020 Active OMEGA-3 FATTY [id number] ORAL Take by mouth. 0 Active cholecalciferol (VITAMIN D3) 10 mcg/mL (400 Unit/mL) drops Take by mouth. 0 Active ASCORBIC ACID, VITAMIN C, ORAL Take by mouth. 0 Activ e multivitamin chewable tablet Chew 1 tablet daily. 0 Active acetaminophen (TYLENOL) 325 mg tablet Take 325 mg by mouth every 4 (four) hours as needed for pain. 0 Active LORazepam (ATIVAN) 0.5 mg tablet 0.5 mg. 0 08/15/2020 Active prochlorperazine (COMPAZINE) 10 mg tablet 10 mg every 8 (eight) hours as needed for nausea or vomiting. 0 08/08/2020 Active diphenhydramine-l idocaine-antacid (MAGIC MOUTHWASH) 1:1:1 Apply 15 mL to the mouth or throat 3 (three) times a day before meals. 480 mL 0 09/27/2020 Active Additional Information Patient not taking.Reported on 05/06/2023 magnesium 200 mg tablet Take 400 mg by mouth every morning before breakfast. 0 Active prednisoLONE acetate (PRED FORTE) 1 % ophthalmic suspension 0 12/05/2020 Active tamsulosin (FLOMAX) 0.4 mg 24 hr capsule 0 10/07/20[address] Active aspirin [address] tablet TAKE ONE TABLET BY MOUTH 0 05/17/2018 Active cephalexin (KEFLEX) 500 mg capsule Take 1 capsule (500 mg total) by mouth 4 (four) times a day. 20 capsule 0 10/10/2021 Active Additional Information Patient not taking.Reported on 05/06/2023 atorvastatin (LIPITOR) 20 mg tablet 10 mg. 0 11/26/2021 Active emollient base (VANICREAM TOP) APPLY THIN LAYER TOPICALLY TWICE A DAY FOR DRY SKIN 0 11/22/2021 Active cyanocobalamin (VITAMIN B12) 1,000 mcg tablet Take 1,000 mcg by mouth daily. TAKE 1 TABLET BY MOUTH EVERY DAY 0 08/28/2022 Active finasteride (PROSCAR) 5 mg tablet Take 1 tablet by mouth daily. TAKE ONE TABLET BY MOUTH EVERY DAY 0 11/26/2021 Active fluocinonide (LIDEX) 0.05 % ointment APPLY MODERATE AMOUNT TOPICALLY TWICE A DAY? NEEDED TO THE RASH ON THE LOWER LEGS WHEN IT'S?REALLY BAD. USE FOR ONLY 1-2 WEEKS AT A TIME THEN SWITCH BACK TO?TRIAMCINOLONE OR STOP. RESTART NEEDED. NEEDED TO THE RASH ON THE LOWER LEGS WHEN IT'S? REALLY BAD. USE FOR ONLY 1-2 WEEKS AT A TIME THEN SWITCH BACK TO? TRIAMCINOLONE OR STOP. RESTART NEEDED. 07/16/2022 DOD-VA 08/05/2022 0 07/16/2022 Active folic acid 1 mg tablet Take 1,000 mcg by mouth daily. 0 08/28/2022 Active loratadine (CLARITIN) 10 mg tablet Take 1 tablet by mouth daily. 0 11/22/2021 Active camphor-menthoL (SARNA) 0.5-0.5 % lotion APPLY THIN LAYER TOPICALLY THREE TIMES A DAY NEEDED FOR ITCHING 0 11/22/2021 Active triamcinolone (KENALOG) 0.1 % cream APPLY THIN LAYER TOPICALLY TWICE A DAY NEEDED TO RASH ON LEGS AND BODY 0 07/16/2022 Active fluoride, sodium, (PreviDent) 1.1 % gel dental gel Apply a thin ribbon to teeth with a toothbrush or use of dental trays for at least 1 minute preferably at bedtime: expectorate gel and do not eat, drink, or rinse for 30 minutes 100 mL 11 11/12/2022 Active warfarin (COUMADIN) 5 mg tablet TAKE 1 TABLET BY MOUTH EVERY DAY FOR AFIB. 0 04/30/2023 Active metoprolol succinate (TOPROL-XL) 25 mg 24 hr tablet Take 1 tablet by mouth daily. 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 Cancer Staging:Clinical stage from 07/30/2020:Stage II(cT2, cN2, cM0, p16+) - Unsigned Immunizations Name Administration Dates Next Due HZV (ZOSTAVAX) 05/14/2011 Influenza (IM) Preservative Free 05/20/2019,05/03,05/14/2011 Influenza TIV (IM) 05/18/2019, 5,05/07/2013,2011,05/14/2011,05/07/2010,06/21/2007,1 08/18/2005,07/03/2005,06/12/2003, 002 Influenza high dose QV(65 ye ars or older) (PF) 05/23/2021 Influenza, Injectable, Quadrivalent 05/03/2020,1 Influenza, Seasonal, Injectable 05/18/20 19,05/07/2013,05/13/2012,2004,06/12/2003,06/10/2002 Influenza, Unspecified 05/20/2022,2020,05/07/2014,2012,06/01/2012,05/14/2011,05/03/2010 PCV13 08/18/2019,07/11/2015 PPSV23 05/07/2013 Pneumococcal, Unspecified 06/07/2013 RZV (SHINGRIX) 01/23/2022,11/22/2021 Td Preservative Free (TENIVA C, DECAVAC) 12/31/2016 Td, (Adult) Unspecified 08/03/2004 Tdap 07/22/2007 influenza high dose (65 year s or older) (PF) 06/19/2017,06/19/2016 Social History Tobacco Use Types Packs/Day Years Used Date Smoking Tobacco: Former Cigarettes Q uit: 1997 Passive Smoke Exposure: Past Smokeless Tobacco: Never Tobacco Cessation:Counseling Given: No Passive Exposure Comments:Mother Nutrition Answer Date Recorded Nutrition: EVOO Fat Source Unknown 09/21 Nutrition: Servings of Fruits/Vegetables per Day Not on file 09/21/2020 Dental Answer Date Recorded Dental: Regular Dentist Unknown 09/21/19 21 Sex and Gender Information Value Date Recorded Sex Assigned at Not on file Gender Identity Not on file Sexual Orientation Not on file Last Filed Vital Signs Vital Sign Reading Time Taken Comments Blood Pressure 109/75 05/06/2023 2:26 PM CDT Pulse 116 05/06/2023 2:26 PM CDT Temperature 36.7 ??C (98 ??F) 05/06/2023 2:26 PM CDT Respiratory Rate 18 01/15/2022 11:51 AM CDT Oxygen Saturation 99% 04/23/2022 12:48 PM CDT Inhaled Oxygen Concentration - - Weight 88.5 kg (195 lb 1.7 oz) 05/06/2023 2:26 P M CDT Height 181.5 cm (5' 11.46) 08/07/2020 9:56 AM [facility] Body Mass Index 26.86 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 [address] [place] [address] Care Teams System Engineer Relationship Specialty Start Date End Date Elsewhere, Pcp PCP - General Internal Medicine 01/15/22
--- OUTSIDE RECORDS SUMMARY | 2023-08-28 12:53 | XMS_ITS ---
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 Past Plans No past plan information found. Radiation Treatments * Plan Last Treated On Elapsed Days Fractions Treated Prescribed Fraction Dose Prescribed Total Dose F1 H&N_BOT 09/28/2020 46 35 of 35 200 cGy 7,000 cGy Reference Point Last Treated On Elapsed Days Session Dose Total Dose [id number] 09/28/2020 46 200 cGy 7,000 cGy
--- OUTSIDE RECORDS SUMMARY | 2023-08-28 12:53 | XMS_ITS | Encounter Summary ---
Author Name Unknown Organization [facility] Address [address] [place] [id number] Care Team Providers Care Carpet Sewer Name Role Phone Elsewhere, Pcp Primary Care Provider Unavailabl e Reason for Visit * Reason Onset Date Comments Pre-visit Intake 09/22/2022 Encounter Details Date Type Department Care Team (Latest Contact Info) Description 09/22/2022 10:00 AM BOATWRIGHT Clinical Communication Virtual Review in [place], [place] [address] [place] [address] Pre-visit Intake Social History Tobacco Use Types Packs/Day Years [...] on file Sexual Orientation Not on file documented as of this encounter Plan of Treatment Upcoming Encounters Date Type Department Care Team (Latest Contact Info) Description 11/10/2023 10:00 AM CDT Clinical Communication Virtual Review in [place], [place] [address] [place] [address] 11/12/2023 11:30 AM CDT Appointment Department of Radiation Oncology in [place], [place] [address] [place] [phone] Serena Berger M.D. [address] [place] [address] documented as of this encounter Visit Diagnoses Not on filedocumented in this encounter Care Teams Carpet Sewer Relationship Specialty Start Date End Date Elsewhere, Pcp PCP - General Internal Medicine 01/15/22 documented as of this encounter
--- OUTSIDE RECORDS SUMMARY | 2023-08-28 12:53 | XMS_ITS | Clinical Summary ---
Author Name Unknown Organization [facility] Address [address] [place] [address] Care Team Providers Care Supervisor Water Treatment Plant Name Role Phone Elsewhere, Pcp Primary Care Provider Unavailabl e Source Comments Patient records contain information from all sites at [facility]. For routine questions regarding patient records, call [phone] during business hours, M-F 8:00 AM - 5:00 PM Central Time. Record requests for emergency care only can be directed to [phone] at any time.[facility] Allergies Active Allergy Reactions Criticality Noted Date Comments Doxazosin Anxiety 05/14/2011 Medications Medication Sig Dispensed Refills Start Date End Date Status aspirin-calcium carbonate 81 mg-300 mg calcium(777 mg) tablet Take by mouth. 0 09/08/2008 Active ALPRAZolam (XANAX) 1 mg tablet as needed. 0 06/25/2020 Active OMEGA-3 FATTY [id number] ORAL Take by mouth. 0 Active cholecalciferol [...] 181.5 cm (5' 11.46) 08/07/2020 9:[address] 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 [address] [place] [address] Health Maintenance Due Date Last Done Comments Abdominal Aortic Aneurysm (AAA) Screen 1948 CT Colonography 1948 Cologuard 1948 Colonoscopy 1948 Colorectal Cancer Screening 1948 FIT 1948 Hepatitis C Screening 1950 Pneumococcal vaccine (65+ years) (3 of 3 - PPSV23 or PCV20) 10/13/2019 08/18/2019, 07/11/2015, 06/07/2013, Additional history exists Depression Screening (Annual PHQ-2) 08/03/2023 Fall Risk Screen (Annual) 08/03/2023 Fasting Glucose for Diabetes Screening 01/22/2024 01/21/2021, 01/10/2021, 07/13/2020, Additional history exists DTaP,Tdap,and Td Vaccines (3 - Td or Tdap) 12/31/2026 12/31/2016, 07/22/2007, 08/03/2004 Zoster Vaccines Completed 01/23/2022, 11/02, 05/14/2011, Additional history exists COVID-19 Vaccine Completed 06/05/2023, , 05/20/2022, Additional history exists Influenza Vaccine Completed 06/05/2023, , 05/23/2021, Additional history exists HPV Vaccines Aged Out No longer eligi ble based on patient's age to complete this topic Care Teams Supervisor Water Treatment Plant Relationship Specialty Start Date End Date Elsewhere, Pcp PCP - General Internal Medicine 01/15/22
--- OUTSIDE RECORDS SUMMARY | 2023-08-28 12:53 | XMS_ITS | Encounter Summary ---
Author Name Unknown Organization [facility] Address [address] [place] [address] Care Team Providers Care Drum Plater Name Role Phone Elsewhere, Pcp Primary Care Provider Unavailabl e Encounter Details Date Type Department Care Team ( st Contact Info) Description 05/06/2023 2:00 AM CDT Ancillary Procedure Department of Oncology Social History Tobacco Use Types Packs/Day Years Used Date Smoking Tobacco: Former Cigarettes Q uit: 1997 Passive Smoke Exposure: Past Smokeless Tobacco: Never Passive Exposure Comments:Mo ther Nutrition Answer Date Recorded Nutrition: EVOO Fat [...] AM CDT Clinical Communication Virtual Review in [place], [place] [address] [place] [address] 11/12/2023 11:30 AM CDT Appointment Department of Radiation Oncology in [place], [place] [address] [place] [address] Serena Berger M.D. [address] [place] [phone] documented as of this encounter Procedures Procedure Name Priority Date/Time Associated Diagnosis Comments ONCOLOGY IMAGE EXAM Routine 05/06/2023 2 :00 AM CDT documented in this encounter Results * Video-Oral Cavity-Oncology Image Exam (05/06/2023 2:00 AM CDT) Narrative IIMS - 05/07/2023 1:56 PM CDT This order has been created and auto-finalized to support the import of images acquired without order. The clinical documentation to support these images can be found on the encounter that produced images. Provider Not In System IMG NON RAD IMAGI NG PROCEDURES IIMS NA documented in this encounter Visit Diagnoses Not on filedocumented in this encounter Care Teams Drum Plater Relationship Specialty Start Date End Date Elsewhere, Pcp PCP - General Internal Medicine 01/15/22 documented as of this encounter
--- OUTSIDE RECORDS SUMMARY | 2023-08-28 12:53 | XMS_ITS | Encounter Summary ---
Author Name Unknown Organization [facility] Address [address] [place] [address] Care Team Providers Care Production Floater Name Role Phone Elsewhere, Pcp Primary Care Provider Unavailabl e Reason for Visit * Outpatient (Routine) - Closed Specialty Diagnoses / Procedures Referred By Vania t Referred To Contact Diagnoses Malignant Neoplasm Of Tongue Base (HCC) Procedures [facility] [employer] Leonel Zamudio M.D., D.D.S. [address] [place] [phone] [facility] Referral ID Status Reason Start Date Expiration Date Visits Re quested Visits Authorized [id number] Closed 09/23/2022 09/23/2023 1 1 Encounter Details Date Type Department Care Team (Latest Contact Info) Description 09/23/2022 9:54 AM MANAGER CARDIAC CATH - 09/23/2022 11:59 PM [facility] Encounter Division of big data engineer in [place], [place] [address] [place] [phone] Leonel Zamudio M.D., D.D.S. [address] [place] [phone] Discharge Disposition: Home or Self Care Social History Tobacco Use Types Packs/Day Years Used Date Smoking Tobacco: Former Cigarettes Q uit: 1997 Passive Smoke Exposure: Past Smokeless Tobacco: Never Passive Exposure Comments:Mo ther Nutrition Answer Date Recorded Nutrition: EVOO Fat Source Unknown 09/21 Nutrition: Servings of Fruits/Vegetables per Day Not on file 09/21/2020 Dental Answer Date Recorded Dental: Regular Dentist Unknown 09/21/19 Sex and Gender Information Value Date Recorded Sex Assigned at Not on file Gender Identity Not on file Sexual Orientation Not on file documented as of this encounter Medications at Time of Discharge Medication Sig Dispensed Refills Start Date End Date acetaminophen (TYLENOL) 325 mg tablet Take 325 mg by mouth every 4 (four) hours as needed for pain. 0 ALPRAZolam (XANAX) 1 mg tablet as needed. 0 06/25/2020 ASCORBIC ACID, VITAMIN C, ORAL Take by mouth. [address] tablet TAKE ONE TABLET BY MOUTH 0 05/17/2018 aspirin-calcium carbonate 81 mg-300 mg calcium(777 mg) tablet Take by mouth. 0 09/08/2008 atorvastatin (LIPITOR) 20 mg tablet 10 mg. 0 11/26/2021 camphor-menthoL (SARNA) 0.5-0.5 % lotion APPLY THIN LAYER TOPICALLY THREE TIMES A DAY NEEDED FOR ITCHING 0 11/22/2021 cephalexin (KEFLEX) 500 mg capsule Take 1 capsule (500 mg total) by mouth 4 (four) times a day. 20 capsule 0 10/10/2021 cholecalciferol (VITAMIN D3) 10 mcg/mL (400 Unit/mL) drops Take by mouth. 0 cyanocobalamin (VITAMIN B12) 1,000 mcg tablet Take 1,000 mcg by mouth daily. TAKE 1 TABLET BY MOUTH EVERY DAY 0 08/28/2022 diphenhydramine-lido erik-antacid (MAGIC MOUTHWASH) 1:1:1 Apply 15 mL to the mouth or throat 3 (three) times a day before meals. 480 mL 0 09/27/2020 emollient base (VANICREAM TOP) APPLY THIN LAYER TOPICALLY TWICE A DAY FOR DRY SKIN 0 11/22/2021 finasteride (PROSCAR) 5 mg tablet Take 1 tablet by mouth daily. TAKE ONE TABLET BY MOUTH EVERY DAY 0 11/26/2021 fluocinonide (LIDEX) 0.05 % ointment APPLY MODERATE [...] RESTART NEEDED. 07/16/2022 DOD-VA 08/05/2022 0 07/16/2022 folic acid 1 mg tablet Take 1,000 mcg by mouth daily. 0 08/28/2022 loratadine (CLARITIN) 10 mg tablet Take 1 tablet by mouth daily. 0 11/22/2021 LORazepam (ATIVAN) 0.5 mg tablet 0.5 mg. 0 08/15/2020 magnesium 200 mg tablet Take 400 mg by mouth every morning before breakfast. 0 multivitamin chewable tablet Chew 1 tablet daily. 0 OMEGA-3 FATTY [id number] ORAL Take by mouth. 0 prednisoLONE acetate (PRED FORTE) 1 % ophthalmic suspension 0 12/05/2020 prochlorperazine (COMPAZINE) 10 mg tablet 10 mg every 8 (eight) hours as needed for nausea or vomiting. 0 08/08/2020 tamsulosin (FLOMAX) 0.4 mg 24 hr capsule 0 10/07/2021 triamcinolone (KENALOG) 0.1 % cream APPLY THIN LAYER TOPICALLY TWICE A DAY NEEDED TO RASH ON LEGS AND BODY 0 07/16/2022 fluoride, sodium, (PreviDent 5000 Dry Mouth) 1.1 % dental gel Apply 1 application to the mouth or throat at bedtime. Dry mouth and or prevention of caries: Apply a thin ribbon to teeth with a toothbrush for at least 1 minute preferably at bedtime: expectorate gel and do not eat, drink, or rinse for 30 minutes. 100 mL 11 10/15/2021 11/12/2022 documented as of this encounter Plan of Treatment Upcoming Encounters Date Type Department Care Team (Latest Contact Info) Description 11/10/2023 10:00 AM CDT Clinical Communication Virtual Review in [place], [place] [address] [place] [address] 11/12/2023 11:30 AM CDT Appointment Department of Radiation Oncology in [place] [id number] [place] [phone] Serena Berger M.D. [address] [place] [address] documented as of this encounter Visit Diagnoses Not on filedocumented in this encounter Care Teams Production Floater Relationship Specialty Start Date End Date Elsewhere, Pcp PCP - General Internal Medicine 01/15/22 documented as of this encounter
--- OUTSIDE RECORDS SUMMARY | 2023-08-28 12:53 | XMS_ITS | Clinical Summary ---
Author Name Unknown Organization [employer] [facility] Address [place], [place] [address] Care Team Providers Care Library Clerk Name Role Phone Amador Chambers DO Primary Care Provider [phone] Allergies Active Allergy Reactions Criticality Noted Date Comments Doxazosin Anxiety 05/14/2011 Medications Medication Sig Dispensed Refills Start Date End Date Status ASPIRIN 81 MG TAB take 1 tablet (81mg) by oral route once daily 0 0 09/08/2008 Active cholecalciferol, vitamin D3, (VITAMIN D3 ORAL) Take by mouth once daily. 0 Active ascorbic acid (VITAMIN C ORAL) Take by mouth once daily. 0 Active Lactobacillus acidophilus (PROBIOTIC ORAL) Take by mouth once daily. 0 Active acetaminophen (TYLENOL ORAL) Take by mouth once daily if needed. 0 Active Lidocaine-Hydrocorti sone Zaid 3-0.5 % creaIndications:Hemo rrhoids, external Insert rectally 2 times daily if needed (topically for hemorrhoids). 1 Tube 0 09/05/2020 Active lidocaine 4 % topical gelIndications:Hemor rhoids, external Apply topically to affected area(s). 1 Tube 0 09/06/2020 Active lidocaine 5 % oint topical ointmentIndications: Hemorrhoids, external Apply rectally to hemorrhoid twice daily as needed 1 Tube 0 09/06/2020 Active hydrocortisone (HYTONE) 2.5 % ointmentIndications: Hemorrhoids, external Apply topically to affected area(s) 2 times daily if needed for Itching. Mix with lidocaine 1 Tube 0 09/06/2020 Active multivitamin chew Chew 1 Tablet by mouth. 0 Active OMEGA-3 FATTY [id number] ORAL Take by mouth. 0 Ac tive ALPRAZolam (XANAX) 1 mg tabletIndications:An xiety TAKE 1 TABLET BY MOUTH 2 TIMES DAILY IF NEEDED. DONT TAKE WITH LORAZEPAM (USED FOR NAUSEA NEEDED) 60 Tablet 0 03/14/2021 Active Active Problems Problem Noted Date Diagnosed Date Adenomatous colon polyp 11/08/2014 Overview: Colonoscopy 11/2014 polyps repeat in 5 years Elevated glucose 09/14/2008 Anxiety State, Unspecified Overview: post Other and Unspecified Hyperlipidemia BPH (benign prostatic hypertrophy) Hypertension Resolved Problems Problem Noted Date Diagnosed Date Resolved Date Elevated blood pressure read ing without diagnosis of hypertension 07/22/2007 09/08/2008 Immunizations Name Administration Dates Next Due AMB INFLUENZA, IIV4 (AGE=>6M OS) MDV (Flu Clinic Only) 05/03/2020 COVID-19 vaccine ([employer] 30mcg/0.3mL) PF, MDV 11/30/2020,11/09/2020 Influenza, IIV3 (Age 6-35 mos) 05/14/2011 Influenza, IIV3 (Age >=3 years) 05/18/20 19,05/07/2013,05/13/2012,2010,05/07/2010,06/21/2007,06/18/2006,1 09/03/2004,06/12/2003,06/10/2002 Influenza, IIV4 (=>6mos) MDV 05/25/2015 Pneumococcal Poly,23-Valent (Pneumovax) 05/07/2013 Pneumococcal conj 13-Valent (Prevnar 13) 08/18/2019,07/11/2015 Pneumococcal, Unspecified 06/07/2013 TD, UNSPECIFIED 08/03/2004 Td (Age >=7 Years) 12/31/2016,04/26/1997 Td, Preservative Free (age > = 7 Years) 12/31/2016 Tdap 07/22/2007 Zoster (Zostavax-ZVL, live) 05/14/2011 Family History * Patient is adopted Medical History Relation Name Comments Unknown Other adopted Relation Name Status Comments Other Social History Tobacco Use Types Packs/Day Years Used Date Smoking Tobacco: Former Cigarettes Q uit: 08/03/1999 Smokeless Tobacco: Never Tobacco Cessation:Counseling Given: Yes Alcohol Use Standard Drinks/Week Comments Not Currently 12 (1 standard drink = 0.6 oz pu re alcohol) PHQ-2 Answer Date Recorded PHQ-2 Score 0 08/18/2019 Social Connections Answer Date Recorded Frequency of Communication with Friends and Fami ly Not on file 07/24/2021 Financial Resource Strain Answer Date R ecorded Difficulty of Paying Living Expenses Not on file 07/24/2021 Difficulty of Paying Living Expenses Not on file 07/24/2021 Sex and Gender Information Value Date Recorded Sex Assigned at Not on file Gender Identity Not on file Sexual Orientation Not on file Obstetrics History Last Filed Vital Signs Vital Sign Reading Time Taken Comments Blood Pressure 135/70 01/21/2021 9:26 AM CDT sta nding Pulse 78 01/21/2021 9:26 AM CDT Temperature 37 ??C (98.6 ??F) 01/10/2021 10:17 AM CDT Respiratory Rate 16 01/10/2021 10:17 AM CDT Oxygen Saturation 98% 01/21/2021 9:26 AM CDT Inhaled Oxygen Concentration - - Weight 80 kg (176 lb 6.4 oz) 01/21/2021 8:59 AM CDT w/ sandals Height 182.9 cm (6') 07/30/2020 7:03 AM PRICING ASSOCIATE Body Mass Index 23.92 07/30/2020 7:03 AM PRICING ASSOCIATE Plan of Treatment Upcoming Encounters Date Type Department Care Team (Late st Contact Info) Description 08/28/2023 1:00 PM PRICING ASSOCIATE Ancillary Procedure [facility] [place] [facility] [address] [place] [address] Health Maintenance Due Date Last Done Comments Hepatitis C screening for ag e 18-79 1966 Zoster (shingles) series for age 50+ (2 of 3) 07/09/2011 05/14/2011 Medicare Wellness for age 65+ 2013 Depression screening for age 12+ 08/18/2020 08/18/2019, 03/16/2019, 12/31/2016, Additional history exists BMI (ht and wt on same day) for age 18+ 07/24/2021 07/24/2020, 07/13/2020, 08/18/2019, Additional history exists Influenza for age 65+ 04/03/2023 05/03/2020 , 05/18/2019, 05/25/2015, Additional history exists Colonoscopy through age 75 07/19/202407/19, 11/07/2014, 08/03/2009 Lipids for age 45-75 08/18/2024 08/18/2019, 01/28/2018, 07/16/2012, Additional history exists Tetanus booster 12/31/2026 12/31/2016, 12/03, 07/22/2007, Additional history exists Tdap Completed 07/22/2007 Pneumococcal series for age 65+ Completed 08/18/2019, 07/11/2015, 07/04/2015, Additional history exists COVID-19 vaccine series Completed 06/05/20, 06/07/2021, 11/30/2020, Additional history exists Advance Directives Latest Code Status on File Code Status Date Activated Date Inactivated Comments Full Code 07/30/2020 6:59 AM 07/30/2020 4:25 PM Question Answer Comments Code Status Discussion: Not Discussed Care Teams Library Clerk Relationship Specialty Start Date End Date Amador Chambers DO [address] [place] [address] PCP - General Family Practice 01/18/21
--- OUTSIDE RECORDS SUMMARY | 2023-08-28 12:53 | XMS_ITS | Encounter Summary ---
Author Name Unknown Organization [facility] Address [address] [place] [address] Care Team Providers Care Watch Repair Technician Name Role Phone Elsewhere, Pcp Primary Care Provider Unavailabl e Reason for Referral * Outpatient (Routine) - Closed Specialty Diagnoses / Procedures Referred By Contac t Referred To Contact Radiation Oncology Kayla Hannah APRN, C.N.PDarwin, D.N.P. [address] [place] [phone] [facility] Region Referral ID Status Reason Start Date Expiration Date Visits Re quested Visits Authorized [id number] Closed 11/12/2022 11/11/2025 1 1 Scheduling Instructions Patient will need scope performed * Outpatient (Routine) - Closed Specialty Diagnoses / Procedures Referred By Contac t Referred To Contact Radiation Oncology Kayla Hannah APRN, Flo.N.PDarwin, D.N.P. [address] [place] [phone] [facility] Region Referral ID Status Reason Start Date Expiration Date Visits Re quested Visits Authorized [id number] Closed 08/06/2022 08/05/2025 1 1 Scheduling Instructions A few days after CT Neck Soft Tissue at [facility]. Please obtain reports and images Reason for Visit * Outpatient (Routine) - Closed Specialty Diagnoses / Procedures Referred By Contac t Referred To Contact Radiation Oncology Kayla Hannah APRN, C.N.PDarwin, D.N.PDarwin [address] [place] [address] [facility] Region Referral ID Status Reason Start Date Expiration Date Visits Re quested Visits Authorized [id number] Closed 08/06/2022 08/05/2025 1 1 Encounter Details Date Type Department Care Team (Latest Contact Info) Description 11/12/2022 10:04 AM CDT - 11/12/2022 4:16 PM CDT Hospital Encounter Department of Radiation Oncology in [place], [place] [address] [place] [phone] Serena Berger M.D. 200 [place] [phone] 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) Social History Tobacco Use Types Packs/Day Years [...] Sign Reading Time Taken Comments Blood Pressure 152/81 11/12/2022 10:08 AM CDT Pulse 67 11/12/2022 10:08 AM CDT Temperature 37.1 ??C (98.7 ??F) 11/12/2022 1 0:08 AM CDT Respiratory Rate - - Oxygen Saturation - - Inhaled Oxygen Concentration - - Weight 88.3 kg (194 lb 11.2 oz) 023 10:08 AM CDT Height - - Body Mass Index 26.81 08/07/2020 9:56 AM DENTAL INTERNSHIP documented in this encounter Medications at Time [...] TABLET BY MOUTH EVERY DAY 0 08/28/2022 diphenhydramine-lidoc lashaun-antacid (MAGIC MOUTHWASH) 1:1:1 Apply 15 mL to [...] RESTART NEEDED. 07/16/2022 DOD-VA 08/05/2022 0 07/16/2022 fluoride, sodium, (PreviDent) 1.1 % gel dental gel Apply a thin ribbon to teeth with a toothbrush or use of dental trays for at least 1 minute preferably at bedtime: expectorate gel and do not eat, drink, or rinse for 30 minutes 100 mL 11 11/12/2022 folic acid 1 mg tablet Take 1,000 mcg by mouth daily. 0 08/28/2022 loratadine (CLARITIN) 10 mg tablet Take 1 tablet by mouth daily. 0 11/22/2021 LORazepam (ATIVAN) 0.5 mg tablet 0.5 mg. 0 08/15/2020 magnesium 200 mg tablet Take 400 mg by mouth every morning before breakfast. 0 multivitamin chewable tablet Chew 1 tablet daily. 0 OMEGA-3 FATTY [id number] ORAL Take by mouth. 0 prednisoLONE acetate [...] RASH ON LEGS AND BODY 0 07/16/2022 documented as of this encounter Progress Notes * Kayla Hannah APRN, C.N.P., D.N.P. - 11/12/2022 10:15 AM CDT SUBJECTIVE DIAGNOSIS 1. Malignant Neoplasm Of Tongue Base (HCC) SUPERVISED BY: Serena Berger M.D. HISTORY OF PRESENT ILLNESS Antonio Mancini is a 72 y.o. 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 He is here for follow up. His oncologic history is as follows: 1. July 03, 2020: The patient presented to Dr. Fuller with a chief complaint of a headache for the past week. The pain was located behind his [...] the left base of the tongue. Fiberoptic laryngoscopyconfirmed an irregular granular tissue proliferation along the left base of the tongue that extended to midline. This did not extend down into the depth of the vallecular or onto the laryngeal surface of the epiglottis. This did not extend to the lateral pharyngeal wall. There was a large firm masspalpable over the left upper neck situated along [...] of the tongue of uncertain significance. Intensely hypermetabolicbilateral cervical lymphadenopathy suspicious for metastatic disease, greater [...] fossa. The mass extended medially somewhat, but notpalpable to the midline. The mass extended inferiorly into the base of the vallecula with palpationof the hyoid bone just inferior to the mass, but did not track onto the lingual surface of the epiglottis. The lesion measured approximately 2.5 cm. The lesion did not appear to be deeply invasive into the deep tongue musculature palpably. The tonsillar fossa was palpably normal. Pathology of the left base of tongue lesion demonstrated invasive non-keratinizing moderately differentiated squamous cell carcinoma. Positive for p16 by IHC. 6. August 13, 2020 through September 28, [...] No evidence of recurrent lesion or adenopathy. 9. [...] uptake suspicious for local recurrence. No suspicious uppercervical lymph nodes. No distant sites of tracer avid metastatic disease. 11. April 21, 2022: TSH 5.52. 12. October 27, 2022: CT soft tissue neck with contrast demonstrated posttreatment changes with no evidence of local tumor recurrence at the tongue base or pathologic lymphadenopathy within the neck. No evidence of osteoradionecrosis. 13. October 31, 2022: TSH 6.41 INTERVAL HISTORY The patient was seen and examined today with Dr. Berger. The patient reports doing well overall. He reports stable symptoms. He continues having lymphedema in the mornings. 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 He does report some jaw pain related to recently broken teeth. He denies any swallowing pain or difficulty. He reports taste is normal. He continues having dry mouth without any changes and finds this manageable with water. He reports good range of motion without any concern. His ECOG performance status is 0. REVIEW OF SYSTEMS Review of systems was negative except as documented above. OBJECTIVE BP 152/81 (BP Location: Left arm, Patient Position: Sitting) Pulse 67 Temp 37.1 ??C (Temporal) Wt 88.3 kg BMI 26.81 kg/m?? PHYSICAL EXAM General: Patient is alert and oriented in no apparent distress. ENT: Pupils equal, round, and reactive to light. Sclera anicteric. Oral cavity inspection reveals moist mucous membranes and no visible lesions. TMs visible with cone of light present bilaterally. Dental cavities present and multiple teeth broken. Neck: Supple. Fibrotic changes to skin. Lymph: No palpable cervical, supraclavicular, infraclavicular, or axillary adenopathy. ASSESSMENT / PLAN #1 Stage II (cT2, N2, M0, p16+) moderately differentiated left base of tongue squamous cell carcinoma s/p definitive chemoradiotherapy, completed September 28, 2020 #2 Submental lymphedema #3 Dental caries It was a pleasure to meet with Antonio today. He is doing well overall with stable long-term side effects from radiation treatment. He has unfortunately developed some broken teeth since our last visit. He saw [facility] in [place] in September 2022 who recommended holding off on any teeth extractions dueto his high risk of possible development of osteoradionecrosis to the jaw. They recommended following closely with his local dental provider and would see him back if symptoms worsened. I provided him with an updated Prevident prescription. He followed up with Dr. Méndez on November 04 who is managing his thyroid function level. He did not follow-up with Dr. Fox in ENT. He would prefer to continue follow-up with Radiation Oncology and have nasopharyngoscopy performed here. We will plan to performthis at his next follow-up. We will see Antonio Mancini in a follow-up visit in 6 months and perform flexible nasopharyngoscopy. Patient seen in collaboration with Dr. Berger, please review her attestation for additional information. The patient was asked to contact us sooner with questions or concerns. He verbally expressedhis understanding of the plan. EDUCATION Ready to learn, no apparent learning barriers were identified; learning preferences include listening. Explained diagnosis and treatment plan; patient expressed understanding of the content. I personally spent 30 minutes in care of the patient today. Time includes both non face to face andface to face patient care. Signed by: Kayla Hannah APRN, Blanca, RoseyNDarwinPDarwin 11/12/2022 11:[address] [facility] [address] [place] [phone] Associated attestation - Serena Berger M.D. - 11/12/2022 4:16 PM CDT I saw and evaluated the patient and participated in the robledo portions of the service. I reviewed thedocumentation of . Kayla Hannah APRN and agree with the findings and plan. On exam he appears well. HEENT exam shows the that the TMs appear normal bilaterally. His oral cavity/oropharynx appears normal with no concerning findings. He does have teeth in ill repair, but no tenderness. His neck shows no adenopathy to palpation. He has some mild submental lymphedema. We discussed his OMS report and their findings and recommendations. He would very much like to have imaging done. We discussed a return in 6 months when he returns to see me and Drs. Méndez. He would like to do his scopes with me and not see Dr. Fox unless we have concerns. His questions were answered; he was comfortable with this plan. Serena Berger M.D., 11/12/2022 documented in this encounter Plan of Treatment Upcoming Encounters Date Type Department Care Team (Latest Contact Info) Description 11/10/2023 10:00 AM CDT Clinical Communication Virtual Review in [place], [place] [address] [place] [address] 11/12/2023 11:30 AM CDT Appointment Department of Radiation Oncology in [address] [phone] Serena Berger M.D. [address] [place] [address] Scheduled Referrals Name Type Priority Associated Diagnoses Order Schedule Radiation Oncology office visit (clinic) Outpatient Referral Routine Once for 1 Occurrences starting 11/12/2022 until 11/12/2022 Radiation Oncology office visit (clinic) Outpatient Referral Routine Expected: (Approximate), Expires: 02/12/2024 documented as of this encounter Visit Diagnoses Diagnosis Malignant Neoplasm Of Tongue Base (HCC)- Primary documented in this encounter Care Teams Watch Repair Technician Relationship Specialty Start Date End Date Elsewhere, Pcp PCP - General Internal Medicine 01/15/22 documented as of this encounter
--- OUTSIDE RECORDS SUMMARY | 2023-08-28 12:53 | XMS_ITS | Encounter Summary ---
Author Name Unknown Organization [facility] Address [address] [place] [address] Care Team Providers Care Commodity Merchant Name Role Phone Elsewhere, Pcp Primary Care Provider Unavailabl e Reason for Referral * Outpatient (Routine) - Closed Specialty Diagnoses / Procedures Referred By Vania wells Referred To Contact Diagnoses Malignant Neoplasm Of Tongue Base (HCC) Procedures JORYS PanLeonel Marion M.D., D.D.S. 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 [address] [place] [address] [facility] Nonrestorable (Primary Dx); Malignant Neoplasm Of Tongue Base (HCC) Social History Tobacco Use Types Packs/Day Years [...] Chew 1 tablet daily. 0 OMEGA-3 FATTY [id number] ORAL Take by mouth. 0 prednisoLONE acetate [...] 10/15/2021 11/12/2022 documented as of this encounter Consult Notes * Kervin Gordon M.D., D.D.S. - 09/23/2022 10:00 AM CST SUBJECTIVE HISTORY OF PRESENT ILLNESS Antonio Mancini is a 72 y.o. 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 The patient's routine dental caries currently being managed by a private practice general dentist. He was seen in consultation by our colleagues in the prosthodontics service. Due to the poor prognosis and lack restorability tooth No. 16 and tooth No. 30 1, he was referred to the [facility] service. The patient denies any drug allergies. He underwent a stress test echo in 2021. He currently takes 81 mg aspirin. MEDICAL HISTORY No past medical history on file. SURGICAL HISTORY No past surgical history on file. SOCIAL HISTORY Social History Socioeconomic History Marital status: Spouse name: Not on file Number of children: Not on file Years of education: Not on file Highest education level: Not on file Occupational History Not on file Tobacco Use Smoking status: Former Types: Cigarettes Quit date: 1997 Years since quittin.1 Passive exposure: Past (Mother) Smokeless tobacco: Never Vaping Use Vaping Use: never used Substance and Sexual Activity Alcohol use: Not on file Drug use: Not on file Sexual activity: Not on file Other Topics Concern Not on file Social History Narrative Not on file Social Determinants of Health Financial Resource Strain: Not on file Food Insecurity: Not on file Transportation Needs: Not on file Physical Activity: Not on file Stress: Not on file Social Connections: Not on file Intimate Partner Violence: Not on file Housing Stability: Not on file CURRENT MEDICATIONS Medications No active medications ALLERGIES/CONTRAINDICATIONS Allergies Allergen Reactions Doxazosin Anxiety OBJECTIVE PHYSICAL EXAMINATION General: AAOx3. NAD. Head and Neck: Normocephalic. No cervical, submandibular, submental lymphadenopathy. Intraoral: Teeth appear to be heavily restored. Partially edentulous. Tooth No. 31 appears fractured edge gingival margin. Limited remaining clinical crown. Tooth No. 13 has a fractured palatal cusp down to gingival margin. ASSESSMENT / PLAN IMPRESSION/REPORT/PLAN: 1. [facility] Nonrestorable 2. Malignant Neoplasm Of Tongue Base (HCC) Mr. Mancini is a pleasant 72-year-old male patient with medical history significant for left base of tongue squamous cell carcinoma who underwent chemoradiation with 70 Gy and cisplatin. The patient wasseen by our colleagues in prosthodontics service recommended extraction of teeth numbers 16 and 31. Clinical examination today shows that the patient is partially edentulous with multiple grossly broken down teeth. Tooth No. 31 is grossly broken down with limited remaining tooth structure. Periapical radiolucency is noted around the apex of tooth No. 31. I discussed my findings with the patient at length including the fact that he is at increased risk of radiation induced osteonecrosis of the jaw. I noted that due to the fact that the patient currently has a periapical radiolucency and significant inflammation around tooth No. 31, that he is at likely increased risk of osteonecrosis currently. Tooth No. 16 is asymptomatic and appears grossly intact on clinical examination. He does have a fractured palatal cusp of tooth number 13 which is broken down to the gingival margin. Due to the fact that he is currently asymptomatic and his substantial risk of radiation-induced osteonecrosis, weweighed the risks and benefits of extraction of tooth No. 31 versus continuing to actively monitor the tooth. At this time the patient wishes to continue to monitor the tooth and will present back ifthe tooth becomes symptomatic. With regards to his remaining dentition, I recommended that the patient see his private practice general dentist for routine dental cares to minimize any need for extractions in the future. Patient was understanding of this. All questions were welcome answered. Plan: Continue to monitor tooth #31. Extraction of tooth #31 under local anesthesia in [facility] if tooth becomes symptomatic. 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 [address] [place] [phone] Scheduled Orders Name Type Priority Associated Diagnoses Orde r Schedule OMS Miscellaneous local Procedures Routine Malignant Neoplasm Of Tongue Base (HCC) Once for 1 Occurrences starting 09/23/2022 until 09/23/2022 documented as of this encounter Visit Diagnoses Diagnosis [facility] Nonrestorable- Primary Malignant Neoplasm Of Tongue Base (HCC) documented in this encounter Care Teams Commodity Merchant Relationship Specialty Start Date End Date Elsewhere, Pcp PCP - General Internal Medicine 01/15/22 documented as of this encounter
--- OUTSIDE RECORDS SUMMARY | 2023-08-28 12:53 | XMS_ITS | Encounter Summary ---
Author Name Unknown Organization [facility] [place] Address [address] [place] [address] Care Team Providers Care Sql Programmer Name Role Phone Elsewhere, Pcp Primary Care Provider Unavailabl e Reason for Referral * Outpatient (Routine) - Authorized Specialty Diagnoses / Procedures Referred By Contac t Referred To Contact Radiation Oncology Kayla Hannah APRN, C.N.PDarwin, D.N.P. [address] [place] [phone] Serena Berger M.D. [address] [place] [phone] Referral ID Status Reason Start Date Expiration Date V isits Requested Visits Authorized [id number] Authorized 05/06/2023 05/05/2026 1 1 * Outpatient (Routine) - Closed Specialty Diagnoses / Procedures Referred By Contac t Referred To Contact Radiation Oncology Kayla Hannah APRN, C.N.P., D.N.P. [address] [place] [phone] [facility] Referral ID Status Reason Start Date Expiration Date Visits Re quested Visits Authorized [id number] Closed 11/12/2022 11/11/2025 1 1 Scheduling Instructions Patient will need scope performed Reason for Visit * Outpatient (Routine) - Closed Specialty Diagnoses / Procedures Referred By Vania wells Referred To Contact Radiation Oncology Kayla Hannah APRN, C.N.P., D.N.P. [address] [place] [address] [facility] Region Referral ID Status Reason Start Date Expiration Date Visits Re quested Visits Authorized [id number] Closed 11/12/2022 11/11/2025 1 1 Encounter Details Date Type Department Care Team (Latest Contact Info) Description 05/06/2023 2:10 PM CDT - 05/06/2023 5:01 PM CDT Hospital Encounter Department of Radiation Oncology in [place], [place] [address] [place] [phone] Serena Berger M.D. 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 0 metoprolol succinate (TOPROL-XL) 25 mg 24 hr tablet Take 1 tablet by mouth daily. 0 04/29/2023 multivitamin chewable tablet Chew 1 tablet daily. 0 OMEGA-3 FATTY CEAMB-HVP-GFN ORAL Take by mouth. 0 prednisoLONE acetate [...] RASH ON LEGS AND BODY 0 07/16/2022 warfarin (COUMADIN) 5 mg tablet TAKE 1 TABLET BY MOUTH EVERY DAY FOR AFIB. 0 04/30/2023 documented as of this encounter Progress Notes * Kayla Hannah APRN, C.N.P., D.N.P. - 05/06/2023 2:30 PM CDT SUBJECTIVE DIAGNOSIS 1. Malignant Neoplasm Of Tongue Base (HCC) SUPERVISED BY: Serena Berger M.D. HISTORY OF PRESENT ILLNESS Antonio aMncini is a 72 y.o. male with stage II (cT2, cN2, cM0, [...] The patient reports doing well overall. He is experiencing mild fatigue. Last week he was diagnosedwith atrial fibrillation and he has been working with his primary care provider to get treatment going for that. He is experiencing some changes to his swallowing over the last 1-2 weeks. He feels like his throat is swollen and is finding it a little harder to swallow. He does notice more phlegm inthe morning. He denies any blood. He denies any swallowing pain. He denies any fevers, chest or head congestion, sore throat, or any other cold-like symptoms. He reports good taste. He denies any dental pain or changes to his previously broken teeth. He continues utilizing fluoride on a daily basis. He denies any sores or lesions within the mouth. He reports good range of motion to his neck, jaw,and tongue. His ECOG performance status is 0. REVIEW [...] good as can be): 7 OBJECTIVE BP 109/75 (BP Location: Right arm, Patient Position: Sitting, Cuff Size: Regular) Pulse (!) 116 Temp 36.7 ??C (Temporal) Wt 88.5 kg BMI 26.86 kg/m?? PHYSICAL EXAM General: Patient is alert and oriented in no apparent distress. ENT: Pupils equal, round, and reactive to light. Sclera anicteric. TMs visible and cone of light present bilaterally. Oral cavity inspection reveals moist mucous membranes and no visible lesions. Neck: Supple. Lymph: No palpable cervical, supraclavicular, infraclavicular, or axillary adenopathy. ASSESSMENT / PLAN #1 Stage II (cT2, N2, M0, p16+) moderately differentiated left base of tongue squamous cell carcinoma s/p definitive chemoradiotherapy, completed September 28, 2020 #2 Submental lymphedema #3 Dental caries It was a pleasure to meet with Matty today. He is doing well overall now 2.5 years out from treatment. He is experiencing some swallowing changes. Dr. Berger will perform laryngoscopy exam today. There are no other changes to his symptoms at this time. He last saw Dr. Méndez, Medical Oncology, in November 2022. At that time she was anticipating the patient return in 6 months with repeat TSH evaluation. This has not been scheduled yet. She continues tomonitor his thyroid function but has not initiated levothyroxine yet. I encouraged him to reach outto our department to get a follow-up set up. We will see Antonio Mancini in a follow-up visit in 6 months. Patient seen in collaboration with Dr. Berger, please review her attestation for additional information and laryngoscopy findings. The patient was asked to contact us with questions or concerns. He verbally expressed his understanding of the plan. EDUCATION Ready to learn, no apparent learning barriers were identified; learning preferences include listening. Explained diagnosis and treatment plan; patient expressed understanding of the content. I personally spent 20 minutes in care of the patient today. Time includes both non face to face andface to face patient care. Signed by: Kayla Hannah APRN, C.N.P., D.N.P. 05/06/2023 2:53 PM CDT [facility] [address] [place] [address] Associated attestation - Serena Berger M.D. - 05/06/2023 5:01 PM CDT I saw and evaluated the patient and participated in the robledo portions of the service. I reviewed thedocumentation of Ms. Kayla Hannah APRN and agree with the findings and plan. On exam he appears well. Nasopharyngoscopy was performed after topical decongestion and anesthesia with lidocaine andafrin, the flexible laryngoscope was inserted on the right side. The nasal cavity, nasopharynx, oropharynx, hypopharynx and larynx were normal. I showed him the video which should be placed in [employer]. He is doing well. We will see him again in 6 months. Serena Berger M.D., 05/06/2023 documented in this encounter Plan of Treatment Upcoming Encounters Date Type Department Care Team (Latest Contact Info) Description 11/10/2023 10:00 AM CDT Clinical Communication Virtual Review in [place], [place] [address] [place] [address] 11/12/2023 11:30 AM CDT Appointment Department of Radiation Oncology in [address] [phone] Serena Berger M.D. [address] [place] [address] Scheduled Referrals Name Type Priority Associated Diagnoses Order Schedule Radiation Oncology office visit (clinic) Outpatient Referral Routine Once for 1 Occurrences starting 05/06/2023 until 05/06/2023 Radiation Oncology office visit (clinic) Outpatient Referral Routine Expected: (Approximate), Expires: 08/06/2024 documented as of this encounter Visit Diagnoses Diagnosis Malignant Neoplasm Of Tongue Base (HCC)- Primary documented in this encounter Care Teams Sql Programmer Relationship Specialty Start Date End Date Elsewhere, Pcp PCP - General Internal Medicine 01/15/22 documented as of this encounter
--- OUTSIDE RECORDS SUMMARY | 2023-08-28 12:53 | XMS_ITS ---
Author Name Unknown Organization [facility] Address [address] [place] [address] Care Team Providers Care Planning Division Superintendent Name Role Phone Unavailable Unavailable Unavailable Surgery Details Not on file Complications Check Surgery Details section. Procedure Estimated Blood Loss Check Surgery Details section. Procedure Findings Check Surgery Details section. Procedure Specimens Taken Check Surgery Details section.
--- OUTSIDE RECORDS SUMMARY | 2023-08-28 12:53 | XMS_ITS | Encounter Summary ---
Author Name Unknown Organization [facility] Address [address] [place] [address] Care Team Providers Care Vp Home Health Name Role Phone Elsewhere, Pcp Primary Care Provider Unavailabl e Encounter Details Date Type Department Care Team (Late st Contact Info) Description 05/11/2023 Clinical Communication Department of Radiation Oncology in [place], [place] [address] [place] [address] Serena Berger M.D. [address] [place] [phone] Social History Tobacco Use Types Packs/Day Years [...] documented as of this encounter Miscellaneous Notes * Telephone Encounter - Yuliana Shahid R.N. - 05/13/2023 9:27 AM CDT Information Discussed Patient asking that if in the future if he has dental concerns if he can contact [facility] or if he needs to go through Dr. Berger first. He states that [facility] had originally discussed with him that if he has pain to molar in the back of his jaw to let them know and they would assess/evaluate as needed. He is not having pain issues but patient is wanting to know who to cont act in the future if dental concerns do develop. I discussed with patient that if he has dental concerns at anytime that he can contact [facility] office to help direct care as needed. Radiation Oncology [place] can be contacted at anytime. PLAN Disposition/Recommendation: self-care - appropriate at this time, patient encouraged to call back with questions Information/Education: patient/caller able to teach back Caller agreeable to plan of care: yes The following references were used: nursing clinical judgement * Telephone Encounter - Magali Dawkins - 05/11/2023 11:09 AM CDT Patient Requests to Speak to a Specific Provider Reason for call: Other - Questions Radiation treatment details: Patient saw Dr. Berger in follow up on 05/06. Patient has questions regarding dental surgeon in [place] he would like to speak with Dr. Berger about. He will have his cell phone on him until 1 pm today. Please call [phone] documented in this encounter Plan of Treatment Upcoming Encounters Date Type Department Care Team (Latest Contact Info) Description 11/10/2023 10:00 AM CDT Clinical Communication Virtual Review in [place], [place] 200 [place] [address] 11/12/2023 11:30 AM CDT Appointment Department of Radiation Oncology in [place] [phone] [place] [address] Serena Berger M.D. [address] [place] [phone] documented as of this encounter Visit Diagnoses Not on filedocumented in this encounter Care Teams Vp Home Health Relationship Specialty Start Date End Date Elsewhere, Pcp PCP - General Internal Medicine 01/15/22 documented as of this encounter
--- OUTSIDE RECORDS SUMMARY | 2023-08-28 12:54 | XMS_ITS | Encounter Summary ---
Author Name [facility] Organization Department of [facility] Address [address] [place] [address] Support Name Relationship Address Phone ANNA MARIEYONASANDREIA E Next of Kin [phone] [address] ANDREIA THRASHER Emergency Contact [address] [place] [address] Insurance Providers: All historical and current Section Date Range: From patient's date of to the date document was created. This section includes the names of all active insurance providers for the patient. Insurance Provider Type of Coverage Plan Name Start of Policy Coverage End of Policy Coverage Group Number Member ID Insurance Provider's Telephone Number Policy Galvan's Name Patient's Relationship to Policy Galvan [employer] [facility] (WNR) MEDICARE ADVANTAGE [facility] (WNR) Aug 03, 2017 [id number] LUCAS THRASHER PATIENT MEDICARE (WNR) MEDICARE (M) PART A May 03, 2013 PART A [id number] LUCAS THRASHER PATIENT MEDICARE (WNR) MEDICARE (M) PART B May 03, 2013 PART B [id number] [phone] LUCAS THRASHER PATIENT Selected Encounter This section includes the [place] on [place] at [place] for the [place]counter. Date/Time Encounter Type Encounter Description Reason Pro vider Source Apr 29, 2023 12:00 AM Outpatient Encounter EVENT (HISTORICAL) E Encounter Template Text not used by [place] Plan of Treatment: Future Appointments (+ 6 months) and Future Tests (+/- 45 days) The Plan of Treatment section includes future care activities for the patient from all [place] treatment[place]ilities. This section includes future appointments and future orders which are active, pending or scheduled. Future Appointments This section includes appointments that were scheduled to occur 6 months from the date of the Encounter, up to a maximum of 20 appointments. The data comes from all [place] treatment facilities. Appointment Date/Time Appointment Type Appointme nt Facility Name Jun 05, 2023 10:00 AM [facility] Jun 05, 2023 10:45 AM [facility] Jul 01, 2023 10:00 AM AMBULATORY - NONE [facility] Jul 01, 2023 10:30 AM [facility] Jul 01, 2023 11:00 AM [facility] Aug 28, 2023 01:00 PM [facility] Sep 23, 2023 10:45 AM [facility] Sep 23, 2023 11:00 [facility]
--- OUTSIDE RECORDS SUMMARY | 2023-08-28 12:54 | XMS_ITS | Encounter Summary ---
Author Name Department of [facility] Organization Department of [facility] Address [address] [place] [address] Support Name Relationship Address Phone ANNA MARIEYONASANDREIA Smith Next of Kin [phone] [address] ANDREIA THRASHER Emergency Contact [phone] [address] Insurance Providers: All [...] Name Patient's Relationship to Policy Galvan HUMANA [facility] (WNR) MEDICARE ADVANTAGE [facility] (WNR) Aug 03, 2017 [id number] LUCAS THRASHER PATIENT MEDICARE (WNR) MEDICARE (M) PART B May 03, 2013 PART B [id number] LUCAS THRASHER PATIENT MEDICARE (R) MEDICARE (M) PART A May 03, 2013 PART A [id number] [phone] LUCAS THRASHER PATIENT Selected Encounter This section includes the information on record at [place] for the Encounter. Date/Time Encounter Type Encounter Description Reason Provider Source Aug 07, 2023 01:23 PM MTMS BY PHARM JAJA 15 MIN TELEPHONE/ANCILL KAYLEN ICD-10-CM Z79.01 emt intermediate (current) use of anticoagulants Antwon SO Encounter Template Text not used by MT Assessments - Encounter Diagnoses This section includes the primary and secondary diagnoses documented for the Encounter. Date/Time Primary/Secondary Diagnosis Diagnosis Name Provider Source Aug 07, 2023 01:23 PM PRIMARY long-term (current) use of anticoagulants ETHEL HADLEY [facility] Aug 07, 2023 01:23 PM SECONDARY Encounter for therapeutic drug level monitoring ETHEL HADLEY [facility] Aug 07, 2023 01:23 PM SECONDARY Unspecified atrial fibrillation JOMARETHEL DUNN Angel [facility] Plan of Treatment: Future Appointments (+ 6 months) and Future Tests (+/- 45 days) The Plan of Treatment section includes future care activities for the patient from all [facility]. This section includes future appointments and future orders which are active, pending or scheduled. Future Appointments This section includes appointments that were scheduled to occur 6 months from the date of the Encounter, up to a maximum of 20 appointments. The data comes from all [facility]. Appointment Date/Time Appointment Type Appointme nt Facility Name Aug 28, 2023 01:00 PM [facility] Sep 23, 2023 10:45 AM AMBULATORY - MEDICINE [facility] Sep 23, 2023 11:00 AM AMBULATORY - MEDICINE [facility] Active, Pending, and Scheduled Orders This section includes a listing of several types of active, pending, and scheduled orders, including clinic medications orders, diagnostic test orders, procedure orders and consult orders; where the start date of the order is 45 days before the date of the Encounter or 45 days after the date of theEncounter. The data comes from all [facility]. Test Date/Time Test Type Test Details Facility Name Jul 01, 2023 01:00 PM Consult Order CARDIAC EL ECTROPHYSIOLOGY OUTPT [facility] Jul 01, 2023 01:26 PM Consult Order COMMUNITY CARE-ECHOCARDIOGRAPHY [facility] Encounter Notes: All associated encounter notes This section contains the clinical notes associated to the Encounter. 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 SUBJECTIVE/OBJECTIVE: History obtained from chart review and patient at [phone] No Recent health changes: No Upcoming procedures requiring interruption: - TBD EKG through [facility] care No Bleeding or thromboembolic complications: No Falls or injuries: No Significant medication changes/new DDIs: Yes Alcohol use: - Baseline: ~1-3 cocktails daily - Discussed recs for NMT 2 drinks/24 hrs and counseled on inc bleed risk No Compliance concerns/frequently missed doses: Yes Stopped prior anticoagulant upon starting new agent: dashboard flags: none Lab: ---- Age: 73 Weight: 194.1 lb [88.04 kg] (06/05/2023 09:52) Height: 70.866 in [180.0 cm] (06/05/2023 09:52) CREATININE 1.3 H PLASMA (07/01/23 09:43) 1.3 H PLASMA (06/05/23 10:54) Cockcroft & Gault (Actual body weight) = 61.1 mL/min 04/29/2023 Outside Hgb 12[address] 187 Collection DT Specimen Test Name Result Units Ref Range 06/05/2023 10:54 PLASMA BILIRUBIN, TOTAL 0.5 mg/dL 0.2 - 1.2 06/05/2023 10:54 PLASMA ALKALINE PHOSPHAT 60 U/L 40 - 150 06/05/2023 10:54 PLASMA AST/SGOT 19 U/L Ref: <=34 06/05/2023 10:54 PLASMA ALT/SGPT 21 U/L Ref: <=55 ASSESSMENT/PLAN: - Taking DOAC correctly, with compliance, and without adverse effects attributable to the use of the drug. - NEW LABS DRAWN SINCE INITIAL CONSULT THAT HAVE NOT PREVIOUSLY BEEN ADDRESSED; PHARMACIST TO REVIEW. - Continue anticoagulation at current dose. - No questions about written education previously sent. - Monitor dashboard for labs, drug interactions, and compliance. - Lab monitoring frequency defined by dashboard or as clinically indicated. - 90-day supply Rx needed by pharmacist; refill NOT requested. Time spent: 15 minutes Patient education of treatment plan: Patient indicates readiness to learn, verbalizes understanding, agreement and satisfaction with the treatment plan. Denies further questions. /coleman/ BAILEY HADLEY MANAGER RADIATION Signed: 08/07/2023 13:36 Receipt Acknowledged By: 08/07/2023 15:01 /coleman/ JAI SO, PHARMD CLINCAL STAFFING MANAGER BAILEY HADLEY [facility]
--- OUTSIDE RECORDS SUMMARY | 2023-08-28 12:54 | XMS_ITS | Encounter Summary ---
Author Name Department of [facility] Organization Department of [facility] Address [address] [place] [address] Support Name Relationship Address Phone ANDREIA QUIROZ Smith Next of Kin [address] [address] ANNA MARIEANDREIA Smith Emergency Contact [phone] [address] [address] Insurance Providers: All [...] Name Patient's Relationship to Policy Galvan HUMANA [facility] (WNR) MEDICARE ADVANTAGE [facility] (WNR) Aug 03, 2017 [id number] LUCAS THRASHER PATIENT MEDICARE (WNR) MEDICARE (M) PART B May 03, 2013 PART B [id number] [phone] LUCAS THRASHER PATIENT MEDICARE (WNR) MEDICARE (M) PART A May 03, 2013 PART A [id number] [phone] LUCAS THRASHER PATIENT Selected Encounter This section includes the information on record at [place] for the Encounter. Date/Time Encounter Type Encounter Description Reason Provider Source Jul 01, 2023 11:00 AM OFF/OP CONSLTJ NEW/EST HI 55 CARDIOLOGY ICD-10-CM I48.91 Unspecified atrial fibrillation DAVID NORRIS Smith Encounter Template Text not used by [place] Assessments - Encounter Diagnoses This section includes the primary and secondary diagnoses documented for the Encounter. Date/Time Primary/Secondary Diagnosis Diagnosis Name Provider Source Jul 01, 2023 12:58 PM PRIMARY Unspecified atrial fibrillation DAVID NORRIS [facility] Jul 01, 2023 12:58 PM SECONDARY long term acute care registered nurse (current) use of anticoagulants DAVID NORRIS [facility] Jul 01, 2023 12:58 PM SECONDARY Nonrheumatic aortic (valve) stenosis DAVID NORRIS [facility] Plan of Treatment: Future Appointments (+ 6 months) and Future Tests (+/- 45 days) The Plan of Treatment section includes future care activities for the patient from all [facility]. This section includes future appointments and future orders which are active, pending or scheduled. Future Appointments This section includes appointments that were scheduled to occur 6 months from the date of the Encounter, up to a maximum of 20 appointments. The data comes from all [facility]. Appointment Date/Time Appointment Type Appointme nt Facility Name Aug 28, 2023 01:00 PM AMBULATORY - NONE [facility] Sep 23, 2023 10:45 AM AMBULATORY - MEDICINE [facility] Sep 23, 2023 11:00 AM AMBULATORY - MEDICINE [facility] Active, Pending, and Scheduled Orders This section includes a listing of several types of active, pending, and scheduled orders, including clinic medications orders, diagnostic test orders, procedure orders and consult orders; where the start date of the order is 45 days before the date of the Encounter or 45 days after the date of theEncounter. The data comes from all [facility]. Test Date/Time Test Type Test Details Facility Name Jul 01, 2023 01:00 PM Consult Order CARDIAC EL ECTROPHYSIOLOGY OUTPT [employer] [facility] Jul 01, 2023 01:26 PM Consult Order COMMUNITY CARE-ECHOCARDIOGRAPHY [facility] Lab Results: +/- 30 days of the encounter This section includes the Chemistry and Hematology Lab Results on record with [place] for the patient. Radiology Reports and Pathology Reports are provided separately, in subsequent sections. Lab Results This section contains the Chemistry/Hematology Results that were resulted 30 days before or 30 daysafter the date of the Encounter. Date/Time Source Result Type Result - Unit Interpretation Reference Range Comment Jul 01, 2023 09:43 AM [facility] BNP Specimen Type: PLASMA No comment entered. Ordering Provider: DARIUS WILLAMS Report Released Date/Time: Jun 11, 2023 04:56 PM Reporting Lab: [facility] [id number] Performing Lab: [facility] [address] BNP 756 H <99 Jul 01, 2023 09:43 AM [facility] UREA NITROGEN Specimen Type: PLASMA No comment entered. Ordering Provider: DARIUS WILLAMS Report Released Date/Time: Jun 11, 2023 04:56 PM Reporting Lab: [facility] [id number] Performing Lab: [facility] [address] UREA NITROGEN 20 8-26 Jul 01, 2023 09:43 AM [facility] CREATININE(INCLUDES EGFR) Specimen Type: PLASMA No comment entered. Ordering Provider: DARIUS WILLAMS Report Released Date/Time: Jun 11, 2023 04:56 PM Reporting Lab: [facility] [address] Performing Lab: [facility] [address] CREATININE 1.3 H 0.7-1.2 .CREAT EGFR(CKD-EPI) 57 L >60 Jul 01, 2023 09:43 AM [facility] ELECTROLYTES/ANION GAP Specimen Type: PLASMA No comment entered. Ordering Provider: DARIUS WILLAMS Report Released Date/Time: Jun 11, 2023 04:56 PM Reporting Lab: [facility] [address] Performing Lab: [facility] [address] SODIUM 141 136-145 POTASSIUM 4.5 3.5-5.1 CHLORIDE 104 98-107 CO2 28 22-29 ANION GAP 9 5-15 Jun 05, 2023 10:54 AM [facility] ([facility]) TSH W/REFLEX TO FREE T4 Specimen Type: PLASMA No comment entered. Ordering Provider: PING VARGAS Report Released Date/Time: Jun 05, 2023 10:42 AM Reporting Lab: [facility] [address] Performing Lab: [facility] [address] TSH 4.34 0.35-4.94 Jun 05, 2023 10:54 AM [facility] ([facility]) FOLATE Specimen Type: SERUM No comment entered. Ordering Provider: PING VARGAS Report Released Date/Time: Jun 05, 2023 10:42 AM Reporting Lab: [facility] [address] Performing Lab: [facility] [address] FOLATE 17.7 >7.0 Jun 05, 2023 10:54 AM [facility] ([facility]) HEMOGLOBIN A1C Specimen Type: BLOOD Comment: Values obtained from A1C measurements can vary. For typical A1C assays, a reported value of 7.0 could actually be between 6.7 and 7.3 if measured by a reference method. A reported value of 9.0 could actually be between 8.7 and 9.3. Ref: http://www.ng sp.org/CAPdat a.asp Ordering Provider: PING VARGAS Report Released Date/Time: Jun 05, 2023 10:42 AM Reporting Lab: [facility] [address] Performing Lab: [facility] [address] HEMOGLOBIN A1C 5.6 4.0-6.0 Jun 05, 2023 10:54 AM [facility] ([facility]) B 12 Specimen Type: SERUM No comment entered. Ordering Provider: PING VARGAS Report Released Date/Time: Jun 05, 2023 10:42 AM Reporting Lab: [facility] [address] Performing Lab: [facility] [address] B [phone] Jun 05, 2023 10:54 AM [facility] ([facility]) LIPID PANEL,NON-FASTING Specimen Type: PLASMA No comment entered. Ordering Provider: PING VARGAS Report Released Date/Time: Jun 05, 2023 10:42 AM Reporting Lab: [facility] [address] Performing Lab: [facility] [address] CHOLESTEROL 240 H <199 .HDL 87 >40 LDL CALCULATION 132 H <99 VLDL CALCULATION 21 <29 NON HDL CHOLESTEROL 153 H <129 TRIG(NON FASTING) 105 <149 Jun 05, 2023 10:54 AM [facility] ([facility]) COMPREHENSIVE METABOLIC PANEL+MG Specimen Type: PLASMA No comment entered. Ordering Provider: PING VARGAS Report Released Date/Time: Jun 05, 2023 10:42 AM Reporting Lab: [facility] [address] Performing Lab: [facility] [address] CREATININE 1.3 H 0.7-1.2 UREA NITROGEN 21 8-26 GLUCOSE 106 H 70-100 SODIUM 140 136-145 POTASSIUM 4.4 3.5-5.1 CHLORIDE 103 98-107 CO2 26 22-29 CALCIUM 9.5 8.4-10.2 PROTEIN,TOTAL 7.1 6.0-8.3 ALBUMIN 4.3 3.5-5.2 BILIRUBIN, TOTAL 0.5 0.2-1.2 MAGNESIUM 1.9 1.6-2.6 ANION GAP 11 5-15 ALKALINE PHOSPHATASE 60 40-150 ALT/SGPT 21 <55 AST/SGOT 19 <34 .CREAT EGFR(CKD-EPI) 57 L >60 Encounter Notes: All associated encounter notes This section contains the clinical notes associated to the Encounter. Date/Time Encounter Note(s) Provider Source Jul 01, 2023 09:57 AM CARDIOLOGY CONSULT : LOCAL TITLE: CARDIAC CONSULT STANDARD TITLE: CARDIOLOGY CONSULT DATE OF NOTE: JUL 01, 2023@09:57 ENTRY DATE: JUL 01, 2023@09:57:39 AUTHOR: DAVID NORRIS EXP COSIGNER: URGENCY: STATUS: COMPLETED CARDIAC CONSULT Has ADDENDA Reason for consult: Atrial fibrillation HPI/ROS Mr. Thrasher is a 73 year-old referred for atrial fibrillation. 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 CARDIAC HISTORY: On 04/29/2023, Presented to [facility] with weakness, was found to be in Afib RVR, was treated with Diltiazem drip, not a candidate for DCCV given not properly coagulated. Eliquis and metoprolol were initiated. On 03/06/2022, echocardiogram showed normal LVEF 70% and mild to moderate . No evidence of ischemia with good exercise capacity (7:26 minutes). is physically active. 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 Denies chest pain. At night when he lays down he has some pressure. He reports fatigue and decreased activity tolerance over the last 2 months. If he is doing chores in the barn and needs to carry water pails, he feels fatigue. If he walks a long ways or walking up steps feels tired. Denies orthopnea or PND. Weight has been stable. Denies peripheral edema. Has occasional LH if he is throwing hay geraldine. He sometimes feel his heart fluttering at night when he lays down. 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 Ear, nose, mouth, throat: No complaints. Cardiovascular: Chest pain as described in HPI. Denies palpitations, Respiratory: Shortness of breath/BRANDON as described in HPI. Denies cough, pleuritic pain, orthopnea or PND Gastrointestinal: Appetite good, denies heartburn and indigestion. Urinary: Denies incontinence, frequency, urgency, nocturia, pain, or discomfort. Skin: No rashes or lesions. Neurological: Denies lightheadedness or dizziness. Denies syncope or pre-syncope. Psychiatric: Denies memory loss or depression. Mood pleasant. Allergies: DOXAZOSIN (May 14, 2011) Past Medical History - Computerized Problem list is source for: Active problems - Computerized Problem List is the source for the followin. Benign prostatic hyperplasia (SNOMED CT 929193950) 2. Polyp of colon (SNOMED CT 73050746) 3. Hypertension (SNOMED CT 21554257) 4. Cataract nos 5. Hydrocele of testis 6. Erectile dysfunction (SNOMED CT 514013669) 7. Impaired fasting glucose 8. Hyperlipidemia 9. Obesity 10. Aortic valve stenosis - mild per 07/2020 echo 11. 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 AF-Atrial Fibrillation (SCT 90312971) 14. Long-Term Current Use of Anticoagulant ([facility] 363742756) Medications: Active Outpatient Medications (including Supplies): Active Outpatient Medications Status 1) APIXABAN 5MG TAB TAKE ONE TABLET BY MOUTH EVERY 12 ACTIVE HOURS TO PREVENT STROKES (REPLACES WARFARIN) 2) FLUOCINONIDE 0.05% OINT APPLY MODERATE AMOUNT ACTIVE TOPICALLY TWICE A DAY NEEDED TO THE RASH ON THE LOWER LEGS WHEN IT'S REALLY BAD. USE FOR ONLY 1-2 WEEKS AT A TIME THEN SWITCH BACK TO TRIAMCINOLONE OR STOP. RESTART NEEDED. 3) TRIAMCINOLONE ACETONIDE 0.1% CREAM APPLY THIN LAYER ACTIVE TOPICALLY TWICE A DAY NEEDED TO RASH ON LEGS AND BODY Active Non-VA Medications Status 1) Non-VA ALPRAZOLAM TAB 0.5MG IF NEEDED FOR ANXIETY ACTIVE 2) Non-VA CYANOCOBALAMIN 1000MCG TAB 1000MCG MOUTH EVERY ACTIVE DAY 3) Non-VA FOLIC ACID 1MG TAB 1MG MOUTH EVERY DAY ACTIVE 4) Non-VA METOPROLOL SUCCINATE 50MG SA TAB 50MG MOUTH ACTIVE DAILY 5) Non-VA MULTIVITAMIN CAP/TAB 1 TABLET MOUTH EVERY DAY ACTIVE 8 Total Medications Vital Signs: - Blood Pressure: 145/89 - Pulse: 110 - Oxygen sat: 98% EXAM: General: appears alert, oriented and cooperative. Neck: Jugular venous pressure: normal Lungs: Clear to auscultation bilaterally Abdomen: Abdomen soft, non-tender, bowel sounds + Cardiovascular: RRR. 1/6 systolic murmurs, gallops or rubs. Extremities: No cyanosis, clubbing or edema are noted. Neuro: Alert and oriented Skin: Warm & dry Recent Available Lab Results: - CREATININE 1.3 H (06/05/23) - UREA NITROGEN 21 (06/05/23) - SODIUM 140 (06/05/23) - CHLORIDE 103 (06/05/23) - POTASSIUM 4.4 (06/05/23) - CO2 26 (06/05/23) - GLUCOSE 106 H (06/05/23) - No data available - TSH 4.34 (06/05/23) - HEMOGLOBIN A1C 5.6 (06/05/23) - INR - NONE FOUND Lipid Profile: - CHOLESTEROL 240 H (06/05/23) - HDL 87 (06/05/23) - LDL CALCULATION 132 H (06/05/23) - No data available DIAGNOSTICS/IMAGING/SCORING [id number] Score: - [id number] = age+2, HTN = 3: LOW RISK - HASBLED = age, etoh = 2: MODERATE RISK EK07/01/2023 Echocardiogram: full report available in [facility] ([facility]) 03/2022 1. Maximum stress test with 96.5% of age predicted maximum heart rate 2. During stress exam the patient developed shortness of breath and fatigue. 3. Negative Stress echo for ischemia 4. post stress, normal left ventricular size, normal LVEF 70% 5. The aortic valve is sclerotic, mild to moderate stenosis and trivial regurgitation. The aortic valve peak velocity is 2.8 m/s, the peak gradient is 32 mmHg, and the mean gradient is 19 mmHg. The aortic valve area is 1.5 cm2 with a dimensionless index of 0.39. Impression: Cardiology was asked to see this 73 year-old patient for atrial fibrillation. ECG shows atrial fibrillation. Stress echocardiogram (03/2022) shows no evidence of ischemia. In addition, shows normal LVEF 70% and mild to moderate . Etiology for atrial fibrillation is likely due to valvular disease and hypertension. #1 Atrial fibrillation, persistent, symptomatic CHADS-VASc score +=3. On Apixaban. Reports symptoms of activity intolerance and fatigue. He is interested in cardioversion. Although his metoprolol was recently increased he has not achieved good rate control. ECG shows HR 105 and in the clinic is 110 bpm. We have recommended he increase metoprolol to 50 mg bid. Given new onset of symptomatic AFib, we will refer patient to electrophysiology for consideration of rhythm control. #2 Aortic Stenosis, mild-moderate Repeat echocardiogram in 1-2 years for surveillance. Last echocardiogram was 03/2022. EDUCATION We discussed risk factor modification for AFib including weight management, regular exercise, moderation of alcohol intake, control of blood pressure and treatment of any underlying LORI. ATRIAL FIBRILLATON brochure was given to [place]. Today's consult and recommendations discussed with him in lay-terms and he is in agreement with the above plan. Patient's history, physical exam, laboratory/imaging findings were discussed and reviewed extensively with Dr.V Lindsay who agrees with my plan. Thank you for referring this to cardiology. I spent 80 minutes reviewing prior notes in CPRS, reviewing/interpreting laboratory testing, and imaging studies with attending staff. I educated that patient on the management of Atrial fibrillation, hypertension, hyperlipidemia, CAD at length, including management with medications and follow-up plan. /coleman/ MINNA PRIETO CARDIOLOGY NURSE PRACTITIONER Signed: 07/01/2023 12:58 07/01/2023 ADDENDUM STATUS: COMPLETED I discussed the care of Mr. Thrasher with MINNA Prieto, Cardiology Nurse Practitioner; please see her note above for details, with which I agree. Thank you for allowing us to participate in the care of this gentleman. Please do not hesitate to contact us should you have any questions. /coleman/ MARTÍN LINDSAY MD STAFF PRACTICE ADVISOR Signed: 07/01/2023 13:44 DAVID NORRIS [facility]
--- OUTSIDE RECORDS SUMMARY | 2023-08-28 12:54 | XMS_ITS | Encounter Summary ---
Author Name Department of [facility] Organization Department of [facility] Address [address] [place] [address] Support Name Relationship Address Phone ANNA MARIESHAKIRSmith [place]tz Next of Kin [address] [address] ANDREIA THRASHER Emergency Contact [phone] [address] Insurance Providers: All [...] Name Patient's Relationship to Policy Galvan HUMANA [facility] (WNR) MEDICARE ADVANTAGE [facility] (WNR) Aug 03, 2017 [id number] LUCAS THRASHER PATIENT MEDICARE (WNR) MEDICARE (M) PART A May 03, 2013 PART A [id number] [phone] LUCAS THRASHER PATIENT MEDICARE (WNR) MEDICARE (M) PART B May 03, 2013 PART B [id number] [phone] LUCAS THRASHER PATIENT Selected Encounter This section includes the information on record at [place] for the Encounter. Date/Time Encounter Type Encounter Description Reason Pro vider Source Jun 08, 2023 04:13 PM Outpatient Encounter PRIMARY CARE/MEDICINE E Encounter Template Text not used by [place] Plan of Treatment: Future Appointments (+ 6 months) and Future Tests (+/- 45 days) The Plan of Treatment section includes future care activities for the patient from all [place] treatmentfacilities. This section includes future appointments and future orders which are active, pending or scheduled. Future Appointments This section includes appointments that were scheduled to occur 6 months from the date of the Encounter, up to a maximum of 20 appointments. The data comes from all [facility]. Appointment Date/Time Appointment Type Appointme nt Facility Name Jul 01, 2023 10:00 AM AMBULATORY - NONE [facility] Jul 01, 2023 10:30 AM AMBULATORY - MEDICINE [facility] Jul 01, 2023 11:00 AM AMBULATORY - MEDICINE [facility] Aug 28, 2023 01:00 PM AMBULATORY - NONE [facility] Sep 23, 2023 10:45 AM AMBULATORY - MEDICINE [facility] Sep 23, 2023 11:00 AM AMBULATORY MEDICINE [facility] Active, Pending, and Scheduled Orders This section includes a listing of several types of active, pending, and scheduled orders, including clinic medications orders, diagnostic test orders, procedure orders and consult orders; where the start date of the order is 45 days before the date of the Encounter or 45 days after the date of theEncounter. The data comes from all [facility]. Test Date/Time Test Type Test Details Facility Name Jul 01, 2023 01:00 PM Consult Order CARDIAC EL ECTROPHYSIOLOGY OUTPT [facility] Jul 01, 2023 01:26 PM Consult Order COMMUNITY CARE-ECHOCARDIOGRAPHY [facility] Lab Results: +/- 30 days of the encounter This section includes the Chemistry and Hematology Lab Results on record with [facility] for the patient. Radiology Reports and Pathology Reports are provided separately, in subsequent sections. Lab Results This section contains the Chemistry/Hematology Results that were resulted 30 days before or 30 daysafter the date of the Encounter. Date/Time Source Result Type Result - Unit Interpretation Reference Range Comment Jul 01, 2023 09:43 AM [facility] BNP Specimen Type: PLASMA No comment entered. Ordering Provider: DARIUS WILLAMS Report Released Date/Time: Jun 11, 2023 04:56 PM Reporting Lab: [facility] [id number] Performing Lab: [facility] [id number] BNP 756 H <99 Jul 01, 2023 09:43 AM [facility] CREATININE(INCLUDES EGFR) Specimen Type: PLASMA No comment entered. Ordering Provider: DARIUS WILLAMS Report Released Date/Time: Jun 11, 2023 04:56 PM Reporting Lab: [facility] [id number] Performing Lab: [facility] [address] CREATININE 1.3 H 0.7-1.2 .CREAT EGFR(CKD-EPI) 57 L >60 Jul 01, 2023 09:43 AM [facility] ELECTROLYTES/ANION GAP Specimen Type: PLASMA No comment entered. Ordering Provider: DARIUS WILLAMS Report Released Date/Time: Jun 11, 2023 04:56 PM Reporting Lab: [facility] [id number] Performing Lab: [facility] [address] SODIUM 141 136-145 POTASSIUM 4.5 3.5-5.1 CHLORIDE 104 98-107 CO2 28 22-29 ANION GAP 9 5-15 Jul 01, 2023 09:43 AM [facility] UREA NITROGEN Specimen Type: PLASMA No comment entered. Ordering Provider: DARIUS WILLAMS Report Released Date/Time: Jun 11, 2023 04:56 PM Reporting Lab: [facility] [address] Performing Lab: [facility] [address] UREA NITROGEN 20 8-26 Jun 05, 2023 10:54 AM [facility] ([facility]) TSH W/REFLEX TO FREE T4 Specimen Type: PLASMA No comment entered. Ordering Provider: PING VARGAS Report Released Date/Time: Jun 05, 2023 10:42 AM Reporting Lab: [facility] [address] Performing Lab: [facility] [address] TSH 4.34 0.35-4.94 Jun 05, 2023 10:54 AM [facility] ([facility]) B 12 Specimen Type: SERUM No comment entered. Ordering Provider: PING VARGAS Report Released Date/Time: Jun 05, 2023 10:42 AM Reporting Lab: [facility] [id number] Performing Lab: [facility] [address] B 12 618 213-816 Jun 05, 2023 10:54 AM [facility] ([facility]) FOLATE Specimen Type: SERUM No comment entered. Ordering Provider: PING VARGAS Report Released Date/Time: Jun 05, 2023 10:42 AM Reporting Lab: [facility] [address] Performing Lab: [facility] [address] FOLATE 17.7 >7.0 Jun 05, 2023 10:54 AM [facility] ([facility]) HEMOGLOBIN A1C Specimen Type: BLOOD Comment: [...] Jun 05, 2023 10:42 AM Reporting Lab: [facility] [address] Performing Lab: [facility] [address] HEMOGLOBIN A1C 5.6 4.0-6.0 Jun 05, 2023 10:54 AM [facility] ([facility]) LIPID PANEL,NON-FASTING Specimen Type: PLASMA No comment entered. Ordering Provider: PING VARGAS Report Released Date/Time: Jun 05, 2023 10:42 AM Reporting Lab: [facility] [address] Performing Lab: [facility] [address] CHOLESTEROL 240 H <199 .HDL 87 >40 LDL CALCULATION 132 H <99 VLDL CALCULATION 21 <29 NON HDL CHOLESTEROL 153 H <129 TRIG(NON FASTING) 105 <149 Jun 05, 2023 10:54 AM [facility] ([facility]) COMPREHENSIVE METABOLIC PANEL+MG Specimen Type: PLASMA No comment entered. Ordering Provider: PING VARGAS Report Released Date/Time: Jun 05, 2023 10:42 AM Reporting Lab: [facility] [id number] Performing Lab: [facility] [address] CREATININE 1.3 H 0.7-1.2 UREA NITROGEN 21 [...] Encounter. Date/Time Encounter Note(s) Provider Source Jun 08, 2023 04:13 PM LETTERS: LOCAL TITLE: FOLLOW UP RESULTS LETTER STANDARD TITLE: LETTERS DATE OF NOTE: JUN 08, 2023@16:13 ENTRY DATE: JUN 08, 2023@16:13:58 AUTHOR: PING VARGAS EXP COSIGNER: URGENCY: STATUS: COMPLETED [facility] [address] [place] [address] Jun AAKASH LAN ANNA MARIE [address] [place] [address] Dear [place]: I am writing to inform you of the results of the tests you had done at the [facility]. The tests below were performed and are satisfactory unless otherwise noted. - Cholesterol Tests (HDL = good and LDL = bad) CHOLESTEROL 240 H (06/05/23) (prefer less than 200) LDL CALCULATION 132 H (06/05/23) (prefer less than 100) Comments: I have reviewed you labs and your cholesterol levels are elevated. Your risk of developing cardiovascular disease (heart attack or stroke) is 24.3% in the next 10 years. We can consider giving you a medication called Rosuvastatin 5mg daily to lower this risk., if you are willing to do so please let our nurses know. I recommend healthy diet and 150 minutes of activity per week, as tolerated. If you have any further questions or problems, please contact our nursing staff or me at the following number: [phone] (Silvio) Sincerely, DEN Wisdom APRN, ALICIA JOY [place] ([facility])
--- OUTSIDE RECORDS SUMMARY | 2023-08-28 12:54 | XMS_ITS | Encounter Summary ---
Author Name Department of [facility] Organization Department of [facility] Address [address] [place] [address] Support Name Relationship Address Phone ANNA MARIEYONASANDREIA E Next of Kin [address] [address] ANDREIA THRASHER Emergency Contact [address] [address] Insurance Providers: All [...] Name Patient's Relationship to Policy Galvan [employer] [facility] (WNR) MEDICARE ADVANTAGE [facility] (WNR) Aug 03, 2017 [id number] LUCAS THRASHER PATIENT MEDICARE (WNR) MEDICARE (M) PART B May 03, 2013 PART B [id number] LUCAS THRASHER PATIENT MEDICARE (WNR) MEDICARE (M) PART A May 03, 2013 PART A [id number] [phone] LUCAS THRASHER PATIENT Selected Encounter This section includes the information on record at [place] for the Encounter. Date/Time Encounter Type Encounter Description Reason Pro vider Source Jul 16, 2023 10:28 AM Outpatient Encounter COMMUNITY CARE CONSULT IHE Encounter Template Text not used by [place] Plan of Treatment: Future Appointments (+ 6 [...] 20 appointments. The data comes from all [facility]. Appointment Date/Time Appointment Type Appointme nt Facility Name Aug 28, 2023 01:00 PM AMBULATORY - NONE [facility] Sep 23, 2023 10:45 AM [facility] Sep 23, 2023 11:00 AM AMBULATORY - MEDICINE [facility] Active, Pending, and Scheduled Orders This section includes a listing of several types of active, pending, and scheduled orders, including clinic medications orders, diagnostic test orders, procedure orders and consult orders; where the start date of the order is 45 days before the date of the Encounter or 45 days after the date of theEncounter. The data comes from all [facility]. Test Date/Time Test Type Test Details Facility Name Jul 01, 2023 01:00 PM Consult Order CARDIAC EL ECTROPHYSIOLOGY OUTPT [facility] Jul 01, 2023 01:26 PM Consult Order COMMUNITY CARE-ECHOCARDIOGRAPHY [facility] Lab Results: +/- 30 days of [...] Range Comment Jul 01, 2023 09:43 AM [facility] BNP Specimen Type: PLASMA No comment entered. Ordering Provider: DARIUS WILLAMS Report Released Date/Time: Jun 11, 2023 04:56 PM Reporting Lab: [facility] [address] Performing Lab: [facility] [address] BNP 756 H <99 Jul 01, 2023 09:43 AM [facility] CREATININE(INCLUDES EGFR) Specimen Type: PLASMA No comment entered. Ordering Provider: DARIUS WILLAMS Report Released Date/Time: Jun 11, 2023 04:56 PM Reporting Lab: [facility] [address] Performing Lab: [facility] [address] CREATININE 1.3 H 0.7-1.2 .CREAT EGFR(CKD-EPI ) 57 L >60 Jul 01, 2023 09:43 AM [facility] UREA NITROGEN Specimen Type: PLASMA No comment entered. Ordering Provider: DARIUS WILLAMS Report Released Date/Time: Jun 11, 2023 04:56 PM Reporting Lab: [facility] [address] Performing Lab: [facility] [address] UREA NITROGEN 20 8-26 Jul 01, 2023 09:43 AM [facility] ELECTROLYTES/ANION GAP Specimen Type: PLASMA No comment entered. Ordering Provider: DARIUS WILLAMS Report Released Date/Time: Jun 11, 2023 04:56 PM Reporting Lab: [facility] [address] Performing Lab: [facility] [address] SODIUM 141 136-145 POTASSIUM 4.5 3.5-5.1 CHLORIDE 104 98-107 CO2 28 22-29 ANION GAP 9 5-15 Encounter Notes: All associated encounter notes This section contains the clinical notes associated to the Encounter. Date/Time Encounter Note(s) Provider Source Jul 16, 2023 10:28 AM NONVA NOTE: LOCAL TITLE: COMMUNITY CARE PRE-AUTH LETTER (AUTOPRINT) STANDARD TITLE: NONVA NOTE DATE OF NOTE: JUL 16, 2023@10:28 ENTRY DATE: JUL 16, 2023@10:28:48 AUTHOR: CHANDRIKA LEDBETTER EXP COSIGNER: URGENCY: STATUS: COMPLETED Jul AAKASH THRASHER [address] [place] [id number] Dear AAKASH THRASHER, Your VA provider has referred you to a provider within the community for care. Your medical care for CARDIOLOGY has been authorized with the community care provider listed below. DO NOT REPORT TO THE [facility] Provider info: Care has been approved for the following vendor: Office name, address, and phone number: [facility] [address] [place] [address] PH: [phone] Please contact the identified provider to schedule your community appointment. If you need assistance with this appointment, please call your facility community care office [facility] Office of Community Care at [phone] during the hours of 8:30AM - 3:00PM. Please follow up with your local [facility] community care office once this is scheduled. This step is needed to ensure your referral duration is maximized and the VA has accurate referral information for billing purposes. Authorization Number: [id number] Referral Issue Date: Jul Expiration Date: Sep (subject to change based on first appointment) If you are unable to schedule this appointment or the appointment is no longer needed, please contact the community provider above for notification/rescheduling and then call the [facility] Office of Community Care at [phone] during the hours of 8:30AM - 3:00PM. If you need additional care/services not mentioned above or your authorization has and additional care is needed, please contact your primary care provider for a new referral. To review all care/service(s) approved under your referral, please go to the following link: [employer]) Co-Payments: If you are required to pay a VA co-payment, you will be billed by the VA for each authorized visit that you attend. However, you are NOT REQUIRED to make co-payments to a community provider. Medical Devices: Your community provider may recommend that medical devices, adapted equipment, or other items be provided for the treatment or rehabilitation of your medical condition. Veterans are generally required to obtain these items through the [facility] Office of Community Care by calling [phone]. Thank you for the opportunity to serve you. Sincerely, [place] Community [facility] ([facility]ACC) /coleman/ CHANDRIKA LEDBETTER [employer] Signed: 07/16/2023 10:30 CHANDRIKA LEDBETTER [facility]
--- OUTSIDE RECORDS SUMMARY | 2023-08-28 12:54 | XMS_ITS | Encounter Summary ---
Author Name Department of [facility] Organization Department of [employer] Address [address] [place] [id number] Support Name Relationship Address Phone ANDREIA QUIROZ Smith Next of Kin [id number] FRANCIS [address] ANNA MARIE ANDREIA E Emergency Contact [phone] [place] FRANCIS [address] Insurance Providers: All [...] Name Patient's Relationship to Policy Galvan [facility] (WNR) MEDICARE ADVANTAGE [facility] (WNR) Aug 03, 2017 [id number] LUCAS THRASHER PATIENT MEDICARE (WNR) MEDICARE (M) PART A May 03, 2013 PART A [id number] [phone] LUCAS THRASHER PATIENT MEDICARE ([facility]) MEDICARE (M) PART B May 03, 2013 PART B [id number] [phone] LUCAS THRASHER PATIENT Selected Encounter This section includes the information on record at [place] for the Encounter. Date/Time Encounter Type Encounter Description Reason Provider Source Jun 05, 2023 10:00 AM OFFICE O/P EST HI 40-54 MIN PRIMARY CARE/MEDICINE ICD-10-CM I48.19 Other persistent atrial fibrillation PING VARGAS Encounter Template Text not used by [facility] Assessments - Encounter Diagnoses This section includes the primary and secondary diagnoses documented for the Encounter. Date/Time Primary/Secondary Diagnosis Diagnosis Name Provider Source Jun 05, 2023 10:58 AM PRIMARY Other persistent atrial fibrillation PING VARGAS ([facility]) Jun 05, 2023 10:58 AM SECONDARY Aortic aneurysm of unspecified site, without rupture PING VARGAS ([facility]) Jun 05, 2023 10:58 AM SECONDARY Benign prostatic hyperplasia with lower urinary tract symp PING VARGAS ([facility]) Jun 05, 2023 10:58 AM SECONDARY Encntr for general adult medical exam w/o abnormal findings PING VARGAS ([facility]) Jun 05, 2023 10:58 AM SECONDARY Encounter for immunization TENNILLE WERNER ([facility]) Jun 05, 2023 10:58 AM SECONDARY Essential (primary) hypertension PING VARGAS ([facility]) Jun 05, 2023 10:58 AM SECONDARY Hydrocele, unspecified PING VARGAS ([facility]) Jun 05, 2023 10:58 AM SECONDARY Hyperlipidemia, unspecified PING VARGAS [place] ([facility]) Jun 05, 2023 10:58 AM SECONDARY Impaired fasting glucose PING VARGAS ([facility]) Jun 05, 2023 10:58 AM SECONDARY Male erectile dysfunction, unspecified IPNG VARGAS ([facility]) Jun 05, 2023 10:58 AM SECONDARY Neoplasm of unspecified behavior of digestive system PING VARGAS ([facility]) Jun 05, 2023 10:58 AM SECONDARY Nonrheumatic aortic (valve) stenosis PING VARGAS ([facility]) Jun 05, 2023 10:58 AM SECONDARY Obesity, unspecified PING VARGAS ([facility]) Jun 05, 2023 10:58 AM SECONDARY Polyp of colon PING VARGAS [place] ([facility]) Plan of Treatment: Future Appointments (+ 6 months) and Future Tests (+/- 45 days) The Plan of Treatment section includes future care activities for the patient from all [place] treatmentfacilities. This section includes future appointments and future orders which are active, pending or scheduled. Future Appointments This section includes appointments that were scheduled to occur 6 months from the date of the Encounter, up to a maximum of 20 appointments. The data comes from all [place] treatment facilities. Appointment Date/Time Appointment Type Appointme nt Facility Name Jul 01, 2023 10:00 AM AMBULATORY - NONE [facility] Jul 01, 2023 10:30 AM [facility] MEDICINE [facility] Jul 01, 2023 11:00 AM AMBULATORY - MEDICINE [facility] Aug 28, 2023 01:00 PM AMBULATORY - NONE [facility] Sep 23, 2023 10:45 AM AMBULATORY - MEDICINE [facility] Sep 23, 2023 11:00 AM AMBULATORY - MEDICINE [facility] Active, Pending, and Scheduled Orders This section includes a listing of several types of active, pending, and scheduled orders, including clinic medications orders, diagnostic test orders, procedure orders and consult orders; where the start date of the order is 45 days before the date of the Encounter or 45 days after the date of theEncounter. The data comes from all [place] treatment facilities. Test Date/Time Test Type Test Details Facility Name Jul 01, 2023 01:00 PM Consult Order CARDIAC EL ECTROPHYSIOLOGY OUTPT [facility] Jul 01, 2023 01:26 PM Consult Order COMMUNITY CARE-ECHOCARDIOGRAPHY [facility] Lab Results: +/- 30 days of the encounter This section includes the Chemistry and Hematology Lab Results on record with [place] for the patient. Radiology Reports and Pathology Reports are provided separately, in subsequent sections. Lab Results This section contains the Chemistry/Hematology Results that were resulted 30 days before or 30 daysafter the date of the Encounter. Date/Time Source Result Type Result - Unit Interpretation Reference Range Comment Jul 01, 2023 09:43 AM [facility] BNP Specimen Type: PLASMA No comment entered. Ordering Provider: DARIUS WILLAMS Report Released Date/Time: Jun 11, 2023 04:56 PM Reporting Lab: [facility] [id number] Performing Lab: [facility] [address] BNP 756 H <99 Jul 01, 2023 09:43 AM [facility] CREATININE(INCLUDES EGFR) Specimen Type: PLASMA No comment entered. Ordering Provider: DARIUS WILLAMS Report Released Date/Time: Jun 11, 2023 04:56 PM Reporting Lab: [facility] [address] Performing Lab: [facility] [address] CREATININE 1.3 H 0.7-1.2 .CREAT EGFR(CKD-EPI) 57 L >60 Jul 01, 2023 09:43 AM [facility] UREA NITROGEN Specimen Type: PLASMA No comment entered. Ordering Provider: DARIUS WILLAMS Report Released Date/Time: Jun 11, 2023 04:56 PM Reporting Lab: [facility] [address] Performing Lab: [facility] [address] UREA NITROGEN 20 8-26 Jul 01, 2023 09:43 AM [facility] ELECTROLYTES/ANION GAP Specimen Type: PLASMA No comment entered. Ordering Provider: DARIUS WILLAMS Report Released Date/Time: Jun 11, 2023 04:56 PM Reporting Lab: [facility] [phone] Performing Lab: [facility] [address] SODIUM 141 136-145 POTASSIUM 4.5 3.5-5.1 CHLORIDE 104 98-107 CO2 28 22-29 ANION GAP 9 5-15 Jun 05, 2023 10:54 AM [facility] ([facility]) TSH W/REFLEX TO FREE T4 Specimen Type: PLASMA No comment entered. Ordering Provider: PING VARGAS Report Released Date/Time: Jun 05, 2023 10:42 AM Reporting Lab: [facility] [address] Performing Lab: [facility] [address] TSH 4.34 0.35-4.94 Jun 05, 2023 10:54 AM [facility] ([facility]) FOLATE Specimen Type: SERUM No comment entered. Ordering Provider: PING VARGAS Report Released Date/Time: Jun 05, 2023 10:42 AM Reporting Lab: [facility] [address] Performing Lab: [facility] [address] FOLATE 17.7 >7.0 Jun 05, 2023 10:54 AM [facility] ([facility]) B 12 Specimen Type: SERUM No comment entered. Ordering Provider: PING VARGAS Report Released Date/Time: Jun 05, 2023 10:42 AM Reporting Lab: [facility] [address] Performing Lab: [facility] [address] B 12 [phone] Jun 05, 2023 10:54 AM [facility] ([facility]) HEMOGLOBIN A1C Specimen Type: BLOOD Comment: [...] Jun 05, 2023 10:42 AM Reporting Lab: [facility] [phone] Performing Lab: [facility] [address] HEMOGLOBIN A1C 5.6 4.0-6.0 Jun 05, 2023 10:54 AM [facility]) LIPID PANEL,NON-FASTING Specimen Type: PLASMA No comment entered. Ordering Provider: PING VARGAS Report Released Date/Time: Jun 05, 2023 10:42 AM Reporting Lab: [facility] [address] Performing Lab: [facility] [address] CHOLESTEROL 240 H <199 .HDL 87 >40 LDL CALCULATION 132 H <99 VLDL CALCULATION 21 <29 NON HDL CHOLESTEROL 153 H <129 TRIG(NON FASTING) 105 <149 Jun 05, 2023 10:54 AM [facility] [place] ([facility]) COMPREHENSIVE METABOLIC PANEL+MG Specimen Type: PLASMA No comment entered. Ordering Provider: PING VARGAS Report Released Date/Time: Jun 05, 2023 10:42 AM Reporting Lab: [facility] [phone] Performing Lab: [facility] [address] CREATININE 1.3 H 0.7-1.2 UREA NITROGEN 21 8-26 GLUCOSE 106 H 70-100 SODIUM 140 136-145 POTASSIUM 4.4 3.5-5.1 CHLORIDE 103 98-107 CO2 26 22-29 CALCIUM 9.5 8.4-10.2 PROTEIN,TOTAL 7.1 6.0-8.3 ALBUMIN 4.3 3.5-5.2 BILIRUBIN, TOTAL 0.5 0.2-1.2 MAGNESIUM 1.9 1.6-2.6 ANION GAP 11 5-15 ALKALINE PHOSPHATASE 60 40-150 ALT/SGPT 21 <55 AST/SGOT 19 <34 .CREAT EGFR(CKD-EPI) 57 L >60 Vital Signs: All taken on the encounter date This section contains inpatient and outpatient Vital Signs collected on the date of the Encounter. Date/Time Temperature Pulse Blood Pressure Respiratory Rate SP02 Pain Height Weight Body Mass Index Source Jun 05, 2023 10:01 AM 123/82 mm[Hg] 99 % [facility] ([facility]) Jun 05, 2023 09:52 AM 97.8 F 106 /min 136/91 mm[Hg] 14 /min 96 % 0 70.866 in 194.1 lb 27 [facility] ([facility]) Immunizations: All administered on the encounter date This section contains immunizations associated to the Encounter. Immunization Series Date Issued Reaction Comments COVID-19 (PFIZER), MRNA, LNP -S, PF, ELEAZAR-SUCROSE, 30 MCG/0.3 ML (AGES 12+ YEARS) 1 Jun 05, 2023 INFLUENZA, HIGH-DOSE, QUADRIVALENT Jun 05, 2023 Social History: Smoking Status (Most current) and Tobacco Use (All prior to encounter date) This section includes the most current, and the historical, smoking and tobacco- related health factors from the [place] facility where the Encounter took place. Current Smoking Status This section includes the most current smoking, or tobacco-related health factor, from the [place] facility where the Encounter took place. Date/Time Current Smoking Status Comment Petros itwalter Jun 05, 2023 10:00 AM VA-TOBACCO FORMER USER [facility] [place] ([facility]) Tobacco Use History This section includes a history of the smoking, or tobacco-related health factors, that were collected on or before the date of the Encounter. The data comes from the [place] facility where the Encounter took place. Date/Time Smoking Status/Tobacco Use Comment F acility Jun 05, 2023 10:00 AM VA-TOBACCO QUIT 15 YRS OR MORE [facility] ([facility]) Jun 04, 2022 02:00 PM VA-TOBACCO FORMER USER [facility] ([facility]) Jun 04, 2022 02:00 PM VA-TOBACCO QUIT 15 YRS OR MORE [facility] ([facility]) Jun 05, 2021 10:00 AM VA-TOBACCO FORMER USER [facility] ([facility]) Jun 05, 2021 10:00 AM VA-TOBACCO QUIT 15 YRS OR MORE [facility] ([facility]) May 23, 2020 11:00 AM VA-TOBACCO FORMER USER [place] ([facility]) May 23, 2020 11:00 AM VA-TOBACCO QUIT 15 YRS OR MORE [facility] ([facility]) May 20, 2019 01:28 PM VA-TOBACCO FORMER USER [facility] ([facility]) May 20, 2019 01:28 PM VA-TOBACCO QUIT 15 YRS OR MORE [facility] ([facility]) Apr 28, 2018 11:47 AM VA-TOBACCO FORMER USER [facility] ([facility]) Apr 28, 2018 11:47 AM VA-TOBACCO QUIT 15 YRS OR MORE [facility] ([facility]) Jul 16, 2017 02:25 PM FORMER TOBACCO USER 7Y OR GREATE R [facility] ([facility]) Jun 19, 2016 01:33 PM FORMER TOBACCO USER 7Y OR GREATE R [facility] ([facility]) Jul 11, 2015 12:11 PM FORMER TOBACCO USER 7Y OR GREATE R [facility] ([facility]) Jul 12, 2014 11:56 AM FORMER TOBACCO USER 7Y OR GREATE R [facility] ([facility]) Aug 20, 2010 09:10 AM FORMER TOBACCO USER 7Y OR GREATE R [facility] ([facility]) Encounter Notes: All associated encounter notes This section contains the clinical notes associated to the Encounter. Date/Time Encounter Note(s) Provider Source Jun 05, 2023 10:10 AM H & P NOTE: LOCAL TITLE: CB ANNUAL VISIT STANDARD TITLE: H & P NOTE DATE OF NOTE: JUN 05, 2023@10:10 ENTRY DATE: JUN 05, 2023@09:55:11 AUTHOR: PING VARGAS EXP COSIGNER: URGENCY: STATUS: COMPLETED Type of Visit: Face to Face Reason for Visit: annual visit HPI: 73 year-old MALE here for annual visit. 04/29/23: Presented to [facility] with weakness, was found to be in Afib RVR, was treated with Diltiazem drip, not a candidate for DCCV given not properly coagulated. - scripts provided for Eliquis 5mg BID Dose pack 30DS and Metoprolol Succinate 25mg --- Eliquis was exchanged for Warfarin due to cost. --- INRs completed at [facility] Today he reports having no stamina, minor shortness of breath, and some discomfort with lying down. -- HR remains elevated at 125 bpm Requests cardiology consult. Reports no other concerns today. Co-managed: [facility] specialty, also [facility] for PCP - 05/06/23: Radiation Oncology, f/u of SCC s/p definitive chemoradiation Home medications: reviewed and updated Chest pain/chest pressure: discomfort with afib Shortness of breath: see above Palpitations: see above Lower extremity swelling: no Home blood pressures: avg 120s Weight: CPAP: no history of sleep apnea Sleep issues: ok except for waking up Mood: does have anxiety Memory: forgetful, old age related Dizziness: no Urinary symptoms: urgency, but no other symptoms Night-time void: up about 3 times a night GI symptoms: Heartburn/Reflux: no Nausea/Vomiting: no Diarrhea/Constipation: no Arthritis: hands, knees Vision: glasses +, no concerns Hearing: no concerns Home blood sugar: Review of systems: otherwise negative Past Medical History: Active problems - Computerized Problem List is the source for the followin. Hypertension 2. Aortic valve stenosis - mild per 07/2020 echo 3. Hyperlipidemia 4. Obesity 5. Impaired fasting glucose 6. 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 Benign prostatic hyperplasia 9. Erectile dysfunction 10. Hydrocele of testis 11. Cataract nos 12. Polyp of colon Past Surgical History: 1. Umbilical hernia repair 2. Nasal septoplasty 3. Vasectomy Family History: 1. Adopted, unknown parents, 1 sister with history unknown 2. 1 daughter healthy Social History: 1. . Lives in [place] with 2. 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 [place] [id number] 4. Quit smoking in early 1999, 'socially' 5. Drinking 3 beers or 3 brandys per night on average --- today reporting decreased intake r/t afib/anticoagulation. Physical Exam: Temp: 97.8 F [36.6 C] (06/05/2023 09:52) Pulse:106 (06/05/2023 09:52) BP: 136/91 (06/05/2023:52) Resp: 14 (06/05/2023:52) Weight: 194.1 lb [88.04 kg] (06/05/2023:52) Pain: 0 (06/05/2023:52) O2 Sat: 96% (06/05/2023:) BMI: 27.2 General: AAOx3, NAD, Healthy, appears stated age. HEENT: AT/NC, no scleral icterus, neck supple, CV: S1S2, irregularly irregular rhythm, tachycardic, no murmurs, no rubs, no gallops Lungs: clear to auscultation bilaterally, no crackles, no wheezing Extrem: no clubbing, cyanosis, or edema Neuro: non-focal Skin: no suspicious lesions, left ankle without rash. Labs: Essential Medication List - reviewed with Patient/Caregiver FACILITY ALLERGY/ADR -------- No Remote Allergy/ADR Data available for this patient [facility] DOXAZOSIN Imaging Assessment/Plan: 1. Hypertension 2. Aortic valve stenosis, mild per 07/2020 echo 3. Hyperlipidemia 4. Obesity 5. Impaired fasting glucose - No HTN/HLD medications - ASA 81mg daily - CMP, CBC, A1c, TSH today 6. Atrial fibrillation with rapid ventricular rate - EKG obtained and shows afib rvr, rate 125. - Cardiology consult - Continue Eliquis 5mg BID --- [place] Anticoagulation consult placed - Increase Metoprolol Succinate 25mg to 50mg daily for rate control 7. Aneurysm of ascending aorta, aortic sinus 4.2 cm 07/2020 - states he was unaware of any aneurysms - no recent echo noted - follow up with echo after afib rates controlled 8. 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 - Continue to follow with outside providers. 9. Benign prostatic hyperplasia - No current concerns 10. Erectile dysfunction - Previously on Sildenafil, not currently. 11. Cataract nos 12. Macular degeneration, bilateral eyes - Follows with [facility] in [place] - Stable and still able to drive. 13. Polyp of colon - Colonoscopy 11/07/14 3 polyps, tubular adenomas. - Colonoscopy 07/19/19 with tubular adenomas - Repeat due 07/2024. Preventive care screening: - Colon cancer: as above - Prostate cancer: PSA 0.42 05/17/18, 0.29 05/20/19, 0.31 05/2020, 0.43 06/04/21. - Abdominal aortic aneurysm: ultrasound negative 09/05/12 - Lung cancer: not applicable, <30 pack year history - HIV: negative 08/20/10 - HCV: negative 08/20/10 - Vaccinations: IM - Immunizations Immunization Series Date Facility Reaction Info COVID-19 (PFIZER), MRNA, LNP-S, B* 1 05/20/2022 [facility]* COVID-19 (PFIZER), MRNA, LNP-S, P* 3 06/07/2021 [facility]* 2 11/30/2020 [facility]* 1 11/09/2020 [facility]* INFLUENZA, HIGH DOSE SEASONAL 06/19/2017 [facility] * 06/19/2016 [facility] * INFLUENZA, HIGH-DOSE, QUADRIVALEN* 05/23/2021 [facility] INFLUENZA, INJECTABLE, QUADRIVALE* 05/03/2020 [facility] 05/25/2015 [facility] INFLUENZA, INJECTABLE, QUADRIVALE* 05/23/2020 [facility] * INFLUENZA, SEASONAL, INJECTABLE 05/18/2019 [facility] 05/25/2015 [facility] <C> 05/07/2013 [facility] 05/13/2012 [facility] 07/03/2005 [facility] 06/12/2003 [facility] 06/10/2002 [facility] INFLUENZA, SEASONAL, INJECTABLE,* 05/20/2019 [facility] * 05/17/2018 [facility] * 05/14/2011 [facility] INFLUENZA, UNSPECIFIED FORMULATIO* 05/20/2022 [facility]* 05/23/2021 [facility]* 05/07/2014 [facility]* <C> 06/07/2013 [facility] * 06/01/2012 [facility] * 05/14/2011 [facility] * [facility]* PNEUMOCOCCAL CONJUGATE PCV 13 08/18/2019 [facility] 07/11/2015 [facility] * <C> PNEUMOCOCCAL POLYSACCHARIDE PPV23 05/07/2013 [facility] PNEUMOCOCCAL, UNSPECIFIED FORMULA* 06/07/2013 [facility] * <C> TD (ADULT), 2 LF TETANUS TOXOID,* 12/31/2016 [facility]* <C> TD (ADULT), 5 LF TETANUS TOXOID,* 12/31/2016 [facility] TD(ADULT) UNSPECIFIED FORMULATION [facility]* TDAP 07/22/2007 [facility] - N* ZOSTER LIVE 05/14/2011 [facility] * <C> ZOSTER RECOMBINANT 2 01/23/2022 [facility] * 1 11/22/2021 [facility] * <C> See the Detailed Immunizations Health Summary Component[DIM] for Comments [facility] - Future Appointment: 06/05/2023 10:00 MEIR PACT WILD MATERIAL FLOW ANALYST RTC in one year CPRS chart review/chart prep: 20 Time with patient: 35 Chart completion:7 Clinical Reminders: Medication Reconciliation: Education Evaluations *Was medication education provided for NEW medications or CHANGES to medications? (including medication name, dose, route, reason for use, and potential side effects). Yes. Verbal education was provided to patient/caregiver and patient/caregiver verbalized understanding. Additional Comment: increased metoprolol for better HR control TERATOGENIC MED & CONTRACEPTION REVIEW (Optional)... === MEDICATION RECONCILIATION === Review Done: The medication list shown below was verified for accuracy and it includes all pending medications/active medications/all medications or discontinued within the last 90 days/all remote medications and non-VA medications. If a given category (i.e. remote meds) is not shown, that means that a patient doesn't have a medication(s) in that category. Allergies listed below were also reviewed/updated for accuracy. Allergies/ADR from [facility] may not display in CPRS. Use JLV MRT5 - Allergies/ADRs FACILITY ALLERGY/ADR -------- No Remote Allergy/ADR Data available for this patient [place] [facility] DOX[facility]IN Active and Recently Outpatient Medications (including Supplies): Issue Date Status Last Fill Active Outpatient Medications Refills Expiration 1) FLUOCINONIDE 0.05% OINT Qty: 60 for 30 ACTIVE Issu:07-16-22 days Sig: APPLY MODERATE AMOUNT Refills: 3 Last:07-19-22 TOPICALLY TWICE A DAY NEEDED TO Expr:07-17-23 THE RASH ON THE LOWER LEGS WHEN IT'S REALLY BAD. USE FOR ONLY 1-2 WEEKS AT A TIME THEN SWITCH BACK TO TRIAMCINOLONE OR STOP. RESTART NEEDED. 2) TRIAMCINOLONE ACETONIDE 0.1% CREAM Qty: ACTIVE (S) Issu:07-16-22 80 for 30 days Sig: APPLY THIN LAYER Refills: 10 Last:06-05-23 TOPICALLY TWICE A DAY NEEDED TO Expr:07-17-23 RASH ON LEGS AND BODY Start Date Active Non-VA Medications Refills Expiration 1) Non-VA ALPRAZOLAM TAB Si.5MG IF ACTIVE NEEDED FOR ANXIETY 2) Non-VA ASPIRIN 81MG EC TAB SiMG ACTIVE MOUTH 3) Non-VA CYANOCOBALAMIN 1000MCG TAB Sig: ACTIVE 1000MCG MOUTH EVERY DAY 4) Non-VA FINASTERIDE 5MG TAB SiMG ACTIVE MOUTH EVERY DAY 5) Non-VA FOLIC ACID 1MG TAB SiMG ACTIVE MOUTH EVERY DAY 6) Non-VA METOPROLOL SUCCINATE 50MG SA TAB ACTIVE SiMG MOUTH DAILY 7) Non-VA MULTIVITAMIN CAP/TAB Si ACTIVE TABLET MOUTH EVERY DAY 8) Non-VA WARFARIN TAB Si.5 MG MOUTH ACTIVE EVERY DAY 10 Total Medications Follow-up Pos Alcohol : Patient's AUDIT-C score was greater than or equal to 5; brief alcohol intervention is indicated. Shared concern that the patient may be drinking at unhealthy levels known to increase his/her risk of alcohol related health problems. Specifically the following were reviewed: High blood pressure, heart disease, liver disease, medication interactions, depression, anxiety, insomnia The patient was advised/informed to drink within safe limits, which are no more than 2 drinks per day on average and no more than 4 drinks on any one day AND no more than 14 drinks per week. Will discuss again at next visit. The patient declines referral for alcohol use assessment or treatment at this time. Plan: rescreen annually. /coleman/ Ping Vargas APRN, CNP Signed: 06/05/2023 10:58 PING VARGAS [facility] ([facility]) Jun 05, 2023 09:59 AM ADVANCE DIRECTIVE: LOCAL TITLE: AD NOTIFICATION AND SCREENING STANDARD TITLE: ADVANCE DIRECTIVE DATE OF NOTE: JUN 05, 2023@09:59 ENTRY DATE: JUN 05, 2023@09:59:26 AUTHOR: TENNILLE WERNER EXP COSIGNER: URGENCY: STATUS: COMPLETED ADVANCE DIRECTIVE NOTIFICATION: Patient was given written notification of the following rights: 1. Accept or refuse any medical treatment. 2. Complete a durable power of trial attorney for health care. 3. Complete a living will. ADVANCE DIRECTIVE SCREENING: Does patient have an Advance Directive? The patient does not have an Advance Directive. The patient does not wish to create an Advance Directive for health care. /coleman/ TENNILLE Anguiano [facility] ROTARY DRILLER PROSPECTING Signed: 06/05/2023 10:01 TENNILLE WERNER ([facility]) Jun 05, 2023 09:55 AM PRIMARY CARE NURSI SVETLANA NOTE: LOCAL TITLE: [facility] NURSING PROGRESS NOTE STANDARD TITLE: PRIMARY CARE NURSING NOTE DATE OF NOTE: JUN 05, 2023@09:55 ENTRY DATE: JUN 05, 2023@09:55:17 AUTHOR: TENNILLE WERNER EXP COSIGNER: URGENCY: STATUS: COMPLETED [facility] NURSING PROGRESS NOTE Has ADDENDA TYPE OF VISIT: Appointment Check In Type of appointment: In-person appointment REASON FOR VISIT: Annual, CO managed [place] ALLERGIES: DOXAZOSIN (May 14, 2011) VITAL SIGNS: Blood Pressure: 136/91 (06/05/2023 09:52) Pulse: 106 (06/05/2023 09:52) Respiration: 14 (06/05/2023:52) Temperature: 97.8 F [36.6 C] (06/05/2023:52) Weight: 194.1 lb [88.04 kg] (06/05/2023:) Height: 70.866 in [180.0 cm] (06/05/2023:) BMI: 27.2 O2 Sat: 96% (06/05/2023:) Pain: 0 (06/05/2023:) PAIN SCREEN: Patient is not having significant pain that they wish to discuss with their provider today. 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 The [place]/caregiver was informed that we will continue to ask this screening question every 5 years. They can contact their provider/healthcare team if they have concerns about exposures and would like to be screened sooner. Printed information was offered and provided if desired. Depression Screening: Perform PHQ-2 A PHQ-2 screen was performed. The score was 1 which is a negative screen for depression. Over the past two weeks, how often have you been bothered by the following problems? 1. Little interest or pleasure in doing things Not at all 2. Feeling down, depressed, or hopeless Several days Suicide Screen: C-SSRS Screening [place] Suicide Severity Rating Scale (C-SSRS) screener 1. Over the past month, have you wished you were or wished you could go to sleep and not wake up? No 2. Over the past month, have you had any actual thoughts of killing yourself? No 3. Over the past month, have you been thinking about how you might do this? Response not required due to responses to other questions. 4. Over the past month, have you had these thoughts and had some intention of acting on them? Response not required due to responses to other questions. 5. Over the past month, have you started to work out or worked out the details of how to kill yourself? Response not required due to responses to other questions. 6. If yes, at any time in the past month did you intend to carry out this plan? Response not required due to responses to other questions. 7. In your lifetime, have you ever done anything, started to do anything, or prepared to do anything to end your life (for example, collected pills, obtained a gun, gave away valuables, went to the roof but didn't jump)? No 8. If YES, was this within the past 3 months? Response not required due to responses to other questions. Alcohol Use Screen (AUDIT-C): Alcohol Screen: SCREEN FOR ALCOHOL (AUDIT-C) An alcohol screening test (AUDIT-C) was positive (score=8). 1. How often did you have a drink containing alcohol in the past year? Four or more times a week 2. How many drinks containing alcohol did you have on a typical day when you were drinking in the past year? Three or four drinks 3. How often did you have six or more drinks on one occasion in the past year? Weekly Tobacco Use Screening: The patient is a former tobacco user. The patient quit fifteen or more years ago. Nursing Annual Screening: Fall History Screen During the past 12 months, have you had any falls? Patient does not report any falls in the past 12 months. MEDICATIONS: Patient does not have an active prescription for one of the following medications: Antihypertensives, Antidepressants, Antipsychotics, Diuretics, or Opioid Analgesics (Contolled Substance medications used for pain). FALL RISK ADVICE: Fall Risk Advice provided. Handout entitled Fall Prevention At Home reviewed and given to patient and/or significant other. Script Talk Screen Are you able to read your prescription bottles with your glasses, magnifiers or other aids? Yes or patient not taking any prescriptions. Skin Screen Patient reports any current pressure ulcers, a history of pressure ulcers, or a wound from a medical assistant cardiology or Patient is bed-confined or a wheelchair-user or Patient requires assistance to transfer/change position No, Skin Screen is Negative Home Abuse/Violence Screen Is your home free of abuse and violence? Yes MOVE! Program Screen Body Mass Index (BMI)= 27.2 [place]: Collection DT Specimen Test Name Result Units Ref Range 06/04/2022 14:10 BLOOD !! HEMOGLOBIN A1C 5.1 % 4.0 - 6.0 !! Indicates COMMENTS AVAILABLE...Refer to Interim Lab Report. [place] Hgb A1C: No data available [place] Hgb A1C: No data available Point of Care Hgb A1C: POC HGB A1C____ Outpatient Nutrition Screen Body Mass Index (BMI)= 27.2 [place]: Collection DT Specimen Test Name Result Units Ref Range 06/04/2022 14:10 BLOOD !! HEMOGLOBIN A1C 5.1 % 4.0 - 6.0 !! Indicates COMMENTS AVAILABLE...Refer to Interim Lab Report. [place] Hgb A1C: No data available [place] Hgb A1C: No data available Point of Care Hgb A1C: POC HGB A1C____ Is patient's BMI less than 18.5? No Does patient have swallowing, coughing, or chewing problems affecting oral intake? Yes Has patient experienced unplanned weight loss or gain greater than 10 pounds over the last 2 months? No Is patient's Hgb A1C (Glycosylated Hemoglobin) greater than 9.5? No Is patient receiving Total Parenteral Nutrition (TPN) or Tube Feedings? No Patient Health Education Screen BARRIERS/SPECIAL NEEDS: No barriers identified PREFERRED STYLE OF LEARNING: Watching something Client Assistive Service (BENJI) Screen Does the patient require assistance with outpatient visit? Yadira /coleman/ TENNILLE WERNER [facility] ROTARY DRILLER PROSPECTING Signed: 06/05/2023 09:59 06/05/2023 ADDENDUM STATUS: COMPLETED COVID-19 Immunization: Pfizer Monovalent (Comirnaty) Vaccine information reviewed with the patient. The patient denied any prior severe reaction to this vaccine or its components or a severe allergic reaction such as anaphylaxis to any vaccine or to any injectable therapy. The patient gave verbal consent to receive vaccine. Administered: COVID-19 (PFIZER), MRNA, LNP-S, PF, ELEAZAR-SUCROSE, 30 MCG/0.3 ML (AGES 12+ YEARS) Date Administered: Jun 05, 2023 10:00 Series: Series 1 Plaster Block Layer: [employer] Lot: [id number] Exp Date: Aug 02, 2023 [facility]: [id number] Admin Route/Site: INTRAMUSCULAR/RIGHT DELTOID Dosage: 0.3mL Vaccine Information Statement(s): COVID-19 MRNA VACCINE (12+ YRS) VACCINE VIS May 21, 2023 ([place]) Order By: Policy Administered By: Tennille Werner Vaccine administered without complications. The patient was advised to remain in the facility for 15 minutes post vaccination. Influenza Immunization: The patient was given the influenza VIS which lists the benefits and side effects of the vaccine and which reviews the risks of not receiving the flu vaccine. The VIS was reviewed with the patient and they were given an opportunity to ask questions. The patient was provided education on how to decrease the risk of influenza infection including social distancing and use of good hand hygiene. The patient denied any prior severe reaction to the flu vaccine or its components. The patient gave verbal consent to receive the vaccine. Influenza, High Dose, Quadrivalent (Fluzone - syringe) Administered: INFLUENZA, HIGH-DOSE, QUADRIVALENT Date Administered: Jun 05, 2023 10:00 Plaster Block Layer: [employer] Lot: [id number] Exp Date: Jan 31, 2024 [facility]: [phone] Admin Route/Site: INTRAMUSCULAR/LEFT DELTOID Dosage: 0.7mL Vaccine Information Statement(s): INFLUENZA(FLU) VACC(INACTIVATED OR RECOMBINANT)VIS Mar 08, 2021 ([place]) Order By: Policy Administered By: Tennille Werner /coleman/ [facility]LE [facility] Signed: 06/05/2023 10:19 TENNILLE WERNER ([facility])
--- OUTSIDE RECORDS SUMMARY | 2023-08-28 12:54 | XMS_ITS | Encounter Summary ---
Author Name Department of [facility] Organization Department of [facility] Address [address] [place] [id number] Support Name Relationship Address Phone ANDREIA QUIROZ Smith Next of Kin [address] [address] [address] MAR[address] ANDREIA E Emergency Contact [phone] [address] Insurance Providers: All [...] Name Patient's Relationship to Policy Galvan HUMANA [facility] (WNR) MEDICARE ADVANTAGE [facility] (WNR) Aug 03, 2017 [id number] LUCAS THRASHER PATIENT MEDICARE (WNR) MEDICARE (M) PART A May 03, 2013 PART A [id number] [phone] LUCAS THRASHER PATIENT MEDICARE (WNR) MEDICARE (M) PART B May 03, 2013 PART B [id number] [phone] LUCAS THRASHER PATIENT Selected Encounter This section includes the information on record at [place] for the Encounter. Date/Time Encounter Type Encounter Description Reason Provider Source Jul 01, 2023 10:30 AM ELECTROCARDIOGRAM COMPLETE EKG ICD-10-CM Z13.6 Encounter for screening for cardiovascular disorders ROXY SUGGS Encounter Template Text not used by [place] Assessments - Encounter Diagnoses This section includes the primary and secondary diagnoses documented for the Encounter. Date/Time Primary/Secondary Diagnosis Diagnosis Name Provider Source Jul 01, 2023 03:17 PM PRIMARY Encounter for screening for cardiovascular disorders [facility] Plan of Treatment: Future Appointments (+ 6 months) and Future Tests (+/- 45 days) The Plan of Treatment section includes future care activities for the patient from all [place] [facility]. This section includes future appointments and future orders which are active, pending or scheduled. Future Appointments This section includes appointments that were scheduled to occur 6 months from the date of the Encounter, up to a maximum of 20 appointments. The data comes from all [facility]. Appointment Date/Time Appointment Type Appointme nt Facility Name Aug 28, 2023 01:00 PM AMBULATORY - NONE [place] [facility] Sep 23, 2023 10:45 AM AMBULATORY - MEDICINE [place] [facility] Sep 23, 2023 11:00 AM AMBULATORY - MEDICINE [facility] Active, Pending, and Scheduled Orders This section includes a listing of several types of active, pending, and scheduled orders, including clinic medications orders, diagnostic test orders, procedure orders and consult orders; where the start date of the order is 45 days before the date of the Encounter or 45 days after the date of theEncounter. The data comes from all [facility]. Test Date/Time Test Type Test Details Facility Name Jul 01, 2023 01:00 PM Consult Order CARDIAC EL ECTROPHYSIOLOGY OUTPT Cons [employer] [facility] Jul 01, 2023 01:26 PM Consult Order COMMUNITY CARE-ECHOCARDIOGRAPHY Cons Inspector [employer] [facility] Lab Results: +/- 30 days of the [...] Range Comment Jul 01, 2023 09:43 AM [facility] BNP Specimen Type: PLASMA No comment entered. Ordering Provider: DARIUS WILLAMS Report Released Date/Time: Jun 11, 2023 04:56 PM Reporting Lab: [facility] [id number] Performing Lab: [facility] [id number] BNP 756 H <99 Jul 01, 2023 09:43 AM [facility] CREATININE(INCLUDES EGFR) Specimen Type: PLASMA No comment entered. Ordering Provider: DARIUS WILLAMS Report Released Date/Time: Jun 11, 2023 04:56 PM Reporting Lab: [facility] [id number] Performing Lab: [facility] [id number] CREATININE 1.3 H 0.7-1.2 .CREAT EGFR(CKD-EPI) 57 L >60 Jul 01, 2023 09:43 AM [facility] UREA NITROGEN Specimen Type: PLASMA No comment entered. Ordering Provider: DARIUS WILLAMS Report Released Date/Time: Jun 11, 2023 04:56 PM Reporting Lab: [facility] [id number] Performing Lab: [facility] [id number] UREA NITROGEN 20 8-26 Jul 01, 2023 09:43 AM [facility] ELECTROLYTES/ANION GAP Specimen Type: PLASMA No comment entered. Ordering Provider: DARIUS WILLAMS Report Released Date/Time: Jun 11, 2023 04:56 PM Reporting Lab: [facility] [address] Performing Lab: [facility] [address] SODIUM 141 136-145 POTASSIUM 4.5 3.5-5.1 CHLORIDE 104 98-107 CO2 28 22-29 ANION GAP 9 5-15 Jun 05, 2023 10:54 AM [place] ([facility]) TSH W/REFLEX TO FREE T4 Specimen Type: PLASMA No comment entered. Ordering Provider: PING VARGAS Report Released Date/Time: Jun 05, 2023 10:42 AM Reporting Lab: [facility] [phone] Performing Lab: [facility] [address] TSH 4.34 0.35-4.94 Jun 05, 2023 10:54 AM [place] ([facility]) B 12 Specimen Type: SERUM No comment entered. Ordering Provider: PING VARGAS Report Released Date/Time: Jun 05, 2023 10:42 AM Reporting Lab: [facility] [address] Performing Lab: [facility] [address] B 12 [phone] Jun 05, 2023 10:54 AM [place] ([facility]) HEMOGLOBIN A1C Specimen [...] 05, 2023 10:42 AM Reporting Lab: [facility] [phone] Performing Lab: [facility] [address] HEMOGLOBIN A1C 5.6 4.0-6.0 Jun 05, 2023 10:54 AM [place] ([facility]) FOLATE Specimen Type: SERUM No comment entered. Ordering Provider: PING VARGAS Report Released Date/Time: Jun 05, 2023 10:42 AM Reporting Lab: [facility] [address] Performing Lab: [facility] [address] FOLATE 17.7 >7.0 Jun 05, 2023 10:54 AM [place] ([facility]) LIPID PANEL,NON-FASTING Specimen Type: PLASMA No comment entered. Ordering Provider: PING VARGAS Report Released Date/Time: Jun 05, 2023 10:42 AM Reporting Lab: [facility] [phone] Performing Lab: [facility] [address] CHOLESTEROL 240 H <199 .HDL 87 >40 LDL CALCULATION 132 H <99 VLDL CALCULATION 21 <29 NON HDL CHOLESTEROL 153 H <129 TRIG(NON FASTING) 105 <149 Jun 05, 2023 10:54 AM [place] ([facility]) COMPREHENSIVE METABOLIC PANEL+MG Specimen Type: PLASMA No comment entered. Ordering Provider: PING VARGAS Report Released Date/Time: Jun 05, 2023 10:42 AM Reporting Lab: [facility] [address] Performing Lab: [facility] [address] CREATININE 1.3 H 0.7-1.2 UREA NITROGEN 21 [...]
--- OUTSIDE RECORDS SUMMARY | 2023-08-28 12:54 | XMS_ITS | Continuity of Care Document ---
Author Name [facility] Organization [facility] Care Team Providers [employer] Faculty Member Name Role Phone [facility] Unavailable Unavailable Problems Combined list of problems from Department of Defense and Veterans Affairs facilities. It does not include entries that were removed or entered in error. Problem Status Onset Date Problem Type Date of Resolution Comments Source AF-Atrial Fibrillation (SCT 96992326) Active Condition [facility] Aneurysm of ascending aorta Active Condition Jan 15, 2021 Entered By: JODIE WALKER Comment: aortic sinus 4.2 cm 07/2020 [place] [facility]) Aortic valve stenosis Active Condition Jan 15, 2021 Entered By: JODIE WALKER Comment: mild per 07/2020 echo [place] ([facility]) Benign prostatic hyperplasia (SNOMED CT 393214829) Active Condition [facility]) Cataract nos Active Condition [facility] Erectile dysfunction (SNOMED CT 796709429) Active Condition [place] ([facility]) Hydrocele of testis Active Condition [place] ([facility]) Hyperlipidemia Active Condition [facility] ([facility]) Hypertension (SNOMED CT 65010430) Active Condition [facility]) Impaired fasting glucose Active Condition [place] ([facility]) Long-Term Current Use of Anticoagulant (SCT 339498391) Active Condition [facility] 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 Jun 05, 2021 Entered By: JODIE WALKER Comment: 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 [place] ([facility]) Obesity Active Condition [place] ([facility]) Polyp of colon (SNOMED CT 19571083) Active Condition [place] ([facility]) Alcohol Abuse (ICD-9-CM 305.00) Inactive Condition 06/07/2013 [facility] ([facility]) Anxiety State, unspec Inactive Condition 06/07/2013 [place] ([facility]) Bunion Inactive Condition 05/17/2018 Jun 07, 2 013 Entered By: SAVANNAH BOYD Comment: Right [place] ([facility]) Depressive Disorder NOS Inactive Condition 06/07/2013 [place] ([facility]) Dermatitis * (ICD-9-CM 692.9) Inactive Condition 06/07/2013 [facility] ([facility]) Impotence of organic origin (ICD-9-CM 607.84) Inactive Condition 05/20/2019 [facility] Marijuana Dependence Continuous (ICD-9-CM 304.31) Inactive Condition 06/07/2013 [facility] ([facility]) Obesity * (ICD-9-CM 278.00) Inactive Condition 06/07/2013 [facility] ([facility]) Diagnosis: ICD-10-CM Z79.01 intermediate (current) use of anticoagulants Active Diagnosis [facility] Diagnosis: ICD-10-CM I48.91 Unspecified atrial fibrillation Active Diagnosis [facility] Diagnosis: ICD-10-CM Z13.6 Encounter for screening for cardiovascular disorders Active Diagnosis [facility] Diagnosis: ICD-10-CM I48.19 Other persistent atrial fibrillation Active Diagnosis [place] ([facility]) Diagnosis: ICD-10-CM L30.9 Dermatitis, unspecified Active Diagnosis [facility] Diagnosis: ICD-10-CM Z00.01 Encounter for general adult medical exam w abnormal findings Active Diagnosis [facility] ([facility]) Diagnosis: ICD-10-CM Z71.89 Other specified counseling Active Diagnosis [facility] Medications Combined list of outpatient medications from Department of Defense and Veterans Affairs facilities.Medications provided include 1) outpatient medications from the last 15 months, and 2) patient-reported medications. Medication Details Route Status Patient Instructions Prescription Expires Prescription Number Last Dispense Date Ordering Provider Order Date Source ALPRAZOLAM TAB TAKE 0.5MG IF NEEDED FOR ANXIETY ACTIVE JOE HAWKINS 2016 [facility]) APIXABAN 5MG TAB TAKE ONE TABLET BY MOUTH EVERY 12 HOURS TO PREVENT STROKES (REPLACE S WARFARIN ) ORALLY ACTIVE 08/07/2024 [id number] [facility] APIXABAN 5MG TAB TAKE ONE TABLET BY MOUTH EVERY 12 HOURS TO PREVENT STROKES (REPLACE S WARFARIN ) ORALLY DISCONT INUED (EDIT) 06/23/2024 [id number] 4 POEPPING, SEN L 2022 [facility] ATORVASTATI N CA 20MG TAB TAKE ONE-HALF TABLET BY MOUTH EVERY DAY FOR CHOLESTE ROL ORALLY 11/27/2022 [id number] MAYCO WALKER 2021 [facility]) CYANOCOBALA MIN 1000MCG TAB TAKE ONE TABLET BY MOUTH EVERY DAY ORALLY ACTIVE MAYCO WALKER 2021 [facility]) FLUOCINONID E 0.05% OINT,TOP APPLY MODERATE AMOUNT TOPICALL Y TWICE A DAY NEEDED TO THE RASH ON THE LOWER LEGS WHEN IT'S REALLY BAD. USE FOR ONLY 1-2 WEEKS AT A TIME THEN SWITCH BACK TO TRIAMCIN OLONE OR STOP. RESTART NEEDED. NEEDED TO THE RASH ON THE LOWER LEGS WHEN IT'S REALLY BAD. USE FOR ONLY 1-2 WEEKS AT A TIME THEN SWITCH BACK TO TRIAMCIN OLONE OR STOP. RESTART NEEDED. TOPICA LLY 07/17/2023 [id number] [facility] FOLIC ACID 1MG TAB TAKE ONE TABLET BY MOUTH EVERY DAY ORALLY ACTIVE MAYCO WALKER 2021 [facility]) METOPROLOL SUCCINATE 50MG TAB,SA TAKE ONE TABLET BY MOUTH TWICE A DAY ORALLY ACTIVE REEDETHANDAVID REESE [address] [facility] MULTIVITAMI NS CAP/TAB TAKE ONE TABLET BY MOUTH EVERY DAY ORALLY ACTIVE MAYCO WALKER 2017 [facility] ([facility]) TRIAMCINOLO NE ACETONIDE 0.1% CREAM,TOP APPLY THIN LAYER TOPICALL Y TWICE A DAY AVOID FACE,HARISH IN and ARMPITS *FOR EXTERNAL USE ONLY APPLY TO RASH TOPICA LLY DISCONT INUED (EDIT) 11/23/2022 [id number] 2 MAYCO WALKER 2021 [facility]) TRIAMCINOLO NE ACETONIDE 0.1% CREAM,TOP APPLY THIN LAYER TOPICALL Y TWICE A DAY NEEDED TO RASH ON LEGS AND BODY TOPICA LLY 07/17/2023 [id number] 3 SAHIL LERNER S 2021 [facility] Allergies, Adverse Reactions, Alerts Combined list of allergies from Department of Defense and Veterans Affairs facilities. It does not include entries that were removed or entered in error. Substance Category Reaction Severity Reaction type Status Date Reported Comments Source DOXAZOSIN Propensity to adverse reactions to drug (finding) Anxiety active 1 [facility] Immunizations Combined list of available immunizations from the Department of Defense and Veterans Affairs facilities. Immunization Series Date Given Administered By Site Reaction Lot Number CVX Code Drug Licensed Direct Entry Midwife Status Comments Source COVID-19 ([employer]), MRNA, LNP-S, PF, ELEAZAR-SUCROSE, 30 MCG/0.3 ML (AGES 12+ YEARS) 1 2022 KVNG WERNERYaritza Douglas RIGHT DELTO ID [id number] 309 complet ed [facility]) INFLUENZA, HIGH-DOSE, QUADRIVALENT 2022 SAVANNAH WERNER LEFT DELTO ID [id number] 197 complet ed [facility]) COVID-19 ([employer]), MRNA, LNP-S, BIVALENT BOOSTER, PF, 30 MCG/0.3 ML DOSE [address] [facility] INFLUENZA, UNSPECIFIED FORMULATION [address] [facility] ZOSTER RECOMBINANT 2 2021 187 complet ed [facility] ZOSTER RECOMBINANT 1 2021 187 complet ed [facility]) COVID-19 ([employer]), MRNA, LNP-S, PF, 30 MCG/0.3 ML DOSE [address] [facility] INFLUENZA, HIGH-DOSE, QUADRIVALENT [address] [facility] INFLUENZA, UNSPECIFIED FORMULATION 2020 88 complet ed [facility] COVID-19 (P[employer]ER), MRNA, LNP-S, PF, 30 MCG/0.3 ML DOSE [address] [facility] COVID-19 ([employer]), MRNA, LNP-S, PF, 30 MCG/0.3 ML DOSE 1 [address] [facility] INFLUENZA, INJECTABLE, QUADRIVALENT, PRESERVATIVE FREE 2019 150 complet ed [facility] INFLUENZA, INJECTABLE, QUADRIVALENT [address] [facility] PNEUMOCOCCAL CONJUGATE PCV [address] [facility] INFLUENZA, SEASONAL, INJECTABLE, PRESERVATIVE FREE 2018 140 complet ed [facility] INFLUENZA, SEASONAL, INJECTABLE [address] [facility] INFLUENZA, SEASONAL, INJECTABLE, PRESERVATIVE FREE 2017 140 complet ed [facility] INFLUENZA, HIGH DOSE SEASONAL 2016 135 complet ed [facility]) TD (ADULT), 2 LF TETANUS TOXOID, PRESERVATIVE FREE, ADSORBED 2016 09 complet ed per [facility] TD (ADULT), 5 LF TETANUS TOXOID, PRESERVATIVE FREE, ADSORBED [address] [facility] INFLUENZA, HIGH DOSE SEASONAL 2015 135 complet ed [facility]) PNEUMOCOCCAL CONJUGATE PCV 13 2014 133 complet ed [facility] [id number], [facility] INFLUENZA, INJECTABLE, QUADRIVALENT [address] [facility] INFLUENZA, SEASONAL, INJECTABLE 2014 141 complet ed [facility] INFLUENZA, UNSPECIFIED FORMULATION 2013 88 complet ed pt reporting [facility] INFLUENZA, UNSPECIFIED FORMULATION 2012 88 complet ed [facility] PNEUMOCOCCAL, UNSPECIFIED FORMULATION 2012 109 complet ed [employer] Lot #[id number] Exp. 08/06/2014 [facility] [facility]) INFLUENZA, SEASONAL, INJECTABLE [address] [facility] PNEUMOCOCCAL POLYSACCHARID E [id number] [address] [facility] INFLUENZA, UNSPECIFIED FORMULATION 2011 88 complet ed [facility]) INFLUENZA, SEASONAL, INJECTABLE [address] [facility] INFLUENZA, UNSPECIFIED FORMULATION 2010 88 complet ed [facility]) ZOSTER LIVE 2010 121 complet ed [employer] [id number] 03/19/12 [facility] INFLUENZA, SEASONAL, INJECTABLE, PRESERVATIVE FREE [address] [facility] INFLUENZA, UNSPECIFIED FORMULATION [address] [facility] TDAP [address] [facility] INFLUENZA, SEASONAL, INJECTABLE [address] [facility] TD(ADULT) UNSPECIFIED FORMULATION [address] [facility] INFLUENZA, SEASONAL, INJECTABLE [address] [facility] INFLUENZA, SEASONAL, INJECTABLE [address] [facility] Results Combined list of recent chemistry, hematology and other laboratory results from Department of Defense and Veterans Affairs, ranging from 15 months to all on record, depending upon the facility. Order Name Results Value Reference Range Date Interpretation Specimen Comments Source BNP NATRIURETIC PEPTIDE B [MASS/VOLUM E] IN SERUM OR PLASMA 756 <99 - 99 07/01 H Specimen Type: PLASMA No comment entered. Ordering Provider: DARIUS WILLAMS Report Released Date/Time: Jun 11, 2023 04:56 PM Reporting Lab: [facility] [address] Performing Lab: [facility] [address] [facility] IS [facility] CREATININ E(INCLUDE S EGFR) CREATININE [MASS/VOLUM E] IN SERUM OR PLASMA 1.3 0.7 - 1.2 07/01 H Specimen Type: PLASMA No comment entered. Ordering Provider: DARIUS WILLAMS Report Released Date/Time: Jun 11, 2023 04:56 PM Reporting Lab: [facility] [address] Performing Lab: [facility] [address] [place] [facility] CREATININ E(INCLUDE S EGFR) GLOMERULAR FILTRATION RATE/1.73 SQ M.PREDICTED [VOLUME RATE/AREA] IN SERUM, PLASMA OR BLOOD BY CREATININE- BASED FORMULA (CKD-EPI 2020) 57 60 07/01 L Specimen Type: PLASMA No comment entered. Ordering Provider: DARIUS WILLAMS Report Released Date/Time: Jun 11, 2023 04:56 PM Reporting Lab: [facility] [address] Performing Lab: [facility] [address] [place] [facility] ELECTROLY BRII/ANION GAP SODIUM [MOLES/VOLU ME] IN SERUM OR PLASMA 141 136 - 145 07/01 Specimen Type: PLASMA No comment entered. Ordering Provider: DARIUS WILLAMS Report Released Date/Time: Jun 11, 2023 04:56 PM Reporting Lab: [facility] [address] Performing Lab: [facility] [address] [place] [facility] ELECTROLY BRII/ANION GAP POTASSIUM [MOLES/VOLU ME] IN SERUM OR PLASMA 4.5 3.5 - 5.1 07/01 Specimen Type: PLASMA No comment entered. Ordering Provider: DARIUS WILLAMS Report Released Date/Time: Jun 11, 2023 04:56 PM Reporting Lab: [facility] [address] Performing Lab: [facility] [address] [place] [facility] ELECTROLY BRII/ANION GAP CHLORIDE [MOLES/VOLU ME] IN SERUM OR PLASMA 104 98 - 107 07/01 Specimen Type: PLASMA No comment entered. Ordering Provider: DARIUS WILLAMS Report Released Date/Time: Jun 11, 2023 04:56 PM Reporting Lab: [facility] [address] Performing Lab: [facility] [address] [place] [facility] ELECTROLY BRII/ANION GAP CARBON DIOXIDE, TOTAL [MOLES/VOLU ME] IN SERUM OR PLASMA 28 - 07/01 Specimen Type: PLASMA No comment entered. Ordering Provider: DARIUS WILLAMS Report Released Date/Time: Jun 11, 2023 04:56 PM Reporting Lab: [facility] [address] Performing Lab: [facility] [address] [place] [facility] ELECTROLY BRII/ANION GAP ANION GAP IN SERUM OR PLASMA 9 5 - 15 07/01 Specimen Type: PLASMA No comment entered. Ordering Provider: DARIUS WILLAMS Report Released Date/Time: Jun 11, 2023 04:56 PM Reporting Lab: [facility] [address] Performing Lab: [facility] [address] [place] [facility] UREA NITROGEN UREA NITROGEN [MASS/VOLUM E] IN SERUM OR PLASMA 20 8 - 26 29 /2023 Specimen Type: PLASMA No comment entered. Ordering Provider: DARIUS WILLAMS Report Released Date/Time: Jun 11, 2023 04:56 PM Reporting Lab: [facility] [address] Performing Lab: [facility] [address] [place] [facility] B 12 COBALAMIN (VITAMIN B12) [MASS/VOLUM E] IN SERUM OR PLASMA 618 213 - 816 06/05 Specimen Type: SERUM No comment entered. Ordering Provider: RENÉ VARGAS Report Released Date/Time: Jun 05, 2023 10:42 AM Reporting Lab: [facility] [address] Performing Lab: [facility] [address] [place] ([facility]) COMPREHEN SIVE METABOLIC PANEL+MG CREATININE [MASS/VOLUM E] IN SERUM OR PLASMA 1.3 0.7 - 1.2 06/05 H Specimen Type: PLASMA No comment entered. Ordering Provider: RENÉ VARGAS Report Released Date/Time: Jun 05, 2023 10:42 AM Reporting Lab: [facility] [address] Performing Lab: [facility] [address] [place] ([facility]) COMPREHEN SIVE METABOLIC PANEL+MG UREA NITROGEN [MASS/VOLUM E] IN SERUM OR PLASMA 8 - 06/05 Specimen Type: PLASMA No comment entered. Ordering Provider: RENÉ VARGAS Report Released Date/Time: Jun 05, 2023 10:42 AM Reporting Lab: [facility] [address] Performing Lab: [facility] [address] [place] ([facility]) COMPREHEN SIVE METABOLIC PANEL+MG GLUCOSE [MASS/VOLUM E] IN SERUM OR PLASMA 106 70 - 100 06/05 H Specimen Type: PLASMA No comment entered. Ordering Provider: RENÉ VARGAS Report Released Date/Time: Jun 05, 2023 10:42 AM Reporting Lab: [facility] [address] Performing Lab: [facility] [address] [place] ([facility]) COMPREHEN SIVE METABOLIC PANEL+MG SODIUM [MOLES/VOLU ME] IN SERUM OR PLASMA 140 136 - 145 06/05 Specimen Type: PLASMA No comment entered. Ordering Provider: RENÉ VARGAS Report Released Date/Time: Jun 05, 2023 10:42 AM Reporting Lab: [place] [phone] Performing Lab: [address] ([facility]) COMPREHEN SIVE METABOLIC PANEL+MG POTASSIUM [MOLES/VOLU ME] IN SERUM OR PLASMA 4.4 3.5 - 5.1 06/05 Specimen Type: PLASMA No comment entered. Ordering Provider: RENÉ VARGAS Report Released Date/Time: Jun 05, 2023 10:42 AM Reporting Lab: [place] [address] Performing Lab: [address] ([facility]) COMPREHEN SIVE METABOLIC PANEL+MG CHLORIDE [MOLES/VOLU ME] IN SERUM OR PLASMA 103 98 - 107 06/05 Specimen Type: PLASMA No comment entered. Ordering Provider: RENÉ VARGAS Report Released Date/Time: Jun 05, 2023 10:42 AM Reporting Lab: [address] Performing Lab: [address] ([facility]) COMPREHEN SIVE METABOLIC PANEL+MG CARBON DIOXIDE, TOTAL [MOLES/VOLU ME] IN SERUM OR PLASMA 26 22 - 29 06/05 Specimen Type: PLASMA No comment entered. Ordering Provider: RENÉ VARGAS Report Released Date/Time: Jun 05, 2023 10:42 AM Reporting Lab: [facility] [address] Performing Lab: [facility] [phone] [place] [address] ([facility]) COMPREHEN SIVE METABOLIC PANEL+MG CALCIUM [MASS/VOLUM E] IN SERUM OR PLASMA 9.5 8.4 - 10.2 06/05 Specimen Type: PLASMA No comment entered. Ordering Provider: RENÉ VARGAS Report Released Date/Time: Jun 05, 2023 10:42 AM Reporting Lab: [place] [address] Performing Lab: [place] [phone] [place] ([facility]) COMPREHEN SIVE METABOLIC PANEL+MG PROTEIN [MASS/VOLUM E] IN SERUM OR PLASMA 7.1 6.0 - 8.3 06/05 Specimen Type: PLASMA No comment entered. Ordering Provider: RENÉ VARGAS Report Released Date/Time: Jun 05, 2023 10:42 AM Reporting Lab: [place] [phone] Performing Lab: [address] [place] [address] ([facility]) COMPREHEN SIVE METABOLIC PANEL+MG ALBUMIN [MASS/VOLUM E] IN SERUM OR PLASMA 4.3 3.5 - 5.2 06/05 Specimen Type: PLASMA No comment entered. Ordering Provider: RENÉ VARGAS Report Released Date/Time: Jun 05, 2023 10:42 AM Reporting Lab: [address] Performing Lab: [address] [place] [address] ([facility]) COMPREHEN SIVE METABOLIC PANEL+MG BILIRUBIN.T OTAL [MASS/VOLUM E] IN SERUM OR PLASMA 0.5 0.2 - 1.2 06/05 Specimen Type: PLASMA No comment entered. Ordering Provider: RENÉ VARGAS Report Released Date/Time: Jun 05, 2023 10:42 AM Reporting Lab: [place] [phone] Performing Lab: [address] ([facility]) COMPREHEN SIVE METABOLIC PANEL+MG MAGNESIUM [MASS/VOLUM E] IN SERUM OR PLASMA 1.9 1.6 - 2.6 06/05 Specimen Type: PLASMA No comment entered. Ordering Provider: RENÉ VARGAS Report Released Date/Time: Jun 05, 2023 10:42 AM Reporting Lab: [place] [phone] Performing Lab: [address] [place] ([facility]) COMPREHEN SIVE METABOLIC PANEL+MG ANION GAP IN SERUM OR PLASMA 11 5 - 15 06/05 Specimen Type: PLASMA No comment entered. Ordering Provider: RENÉ VARGAS Report Released Date/Time: Jun 05, 2023 10:42 AM Reporting Lab: [facility] [address] Performing Lab: [facility] [address] [place] ([facility]) COMPREHEN SIVE METABOLIC PANEL+MG ALKALINE PHOSPHATASE [ENZYMATIC ACTIVITY/VO LUME] IN SERUM OR PLASMA 60 40 - 150 06/05 Specimen Type: PLASMA No comment entered. Ordering Provider: RENÉ VARGAS Report Released Date/Time: Jun 05, 2023 10:42 AM Reporting Lab: [facility] [address] Performing Lab: [facility] [address] [place] ([facility]) COMPREHEN SIVE METABOLIC PANEL+MG ALANINE AMINOTRANSF ERASE [ENZYMATIC ACTIVITY/VO LUME] IN SERUM OR PLASMA 21 <55 - 55 06/05 Specimen Type: PLASMA No comment entered. Ordering Provider: RENÉ VARGAS Report Released Date/Time: Jun 05, 2023 10:42 AM Reporting Lab: [facility] [address] Performing Lab: [facility] [address] [place] ([facility]) COMPREHEN SIVE METABOLIC PANEL+MG ASPARTATE AMINOTRANSF ERASE [ENZYMATIC ACTIVITY/VO LUME] IN SERUM OR PLASMA 19 <34 - 34 06/05 Specimen Type: PLASMA No comment entered. Ordering Provider: RENÉ VARGAS Report Released Date/Time: Jun 05, 2023 10:42 AM Reporting Lab: [facility] [address] Performing Lab: [facility] [address] [place] ([facility]) COMPREHEN SIVE METABOLIC PANEL+MG GLOMERULAR FILTRATION RATE/1.73 SQ M.PREDICTED [VOLUME RATE/AREA] IN SERUM, PLASMA OR BLOOD BY CREATININE- BASED FORMULA (CKD-EPI 2020) 57 60 06/05 L Specimen Type: PLASMA No comment entered. Ordering Provider: RENÉ VARGAS Report Released Date/Time: Jun 05, 2023 10:42 AM Reporting Lab: [facility] [address] Performing Lab: [facility] [address] [place] ([facility]) FOLATE FOLATE [MASS/VOLUM E] IN SERUM OR PLASMA 17.7 7.0 06/05 Specimen Type: SERUM No comment entered. Ordering Provider: RENÉ VARGAS Report Released Date/Time: Jun 05, 2023 10:42 AM Reporting Lab: [facility] [address] Performing Lab: [facility] [address] [place] ([facility]) HEMOGLOBI N A1C HEMOGLOBIN A1C/HEMOGLO BIN.TOTAL IN BLOOD 5.6 4.0 - 6.0 06/05 Specimen Type: BLOOD Comment: Values obtained from A1C measurement s can vary. For typical A1C assays, a reported value of 7.0 could actually be between 6.7 and 7.3 if measured by a reference method. A reported value of 9.0 could actually be between 8.7 and 9.3. Ref: http://www. ngsp.org/[place] Pdata.asp Ordering Provider: RENÉ VARGAS Report Released Date/Time: Jun 05, 2023 10:42 AM Reporting Lab: [facility] [address] Performing Lab: [facility] [address] [place] ([facility]) LIPID PANEL,NON -FASTING CHOLESTEROL [MASS/VOLUM E] IN SERUM OR PLASMA 240 <199 - 199 06/05 H Specimen Type: PLASMA No comment entered. Ordering Provider: RENÉ VARGAS Report Released Date/Time: Jun 05, 2023 10:42 AM Reporting Lab: [facility] [address] Performing Lab: [facility] [address] [place] ([facility]) LIPID PANEL,NON -FASTING CHOLESTEROL IN HDL [MASS/VOLUM E] IN SERUM OR PLASMA 87 40 06/05 Specimen Type: PLASMA No comment entered. Ordering Provider: RENÉ VARGAS Report Released Date/Time: Jun 05, 2023 10:42 AM Reporting Lab: [facility] [address] Performing Lab: [facility] [address] [place] ([facility]) LIPID PANEL,NON -FASTING CHOLESTEROL IN LDL [MASS/VOLUM E] IN SERUM OR PLASMA BY CALCULATION 132 <99 - 99 06/05 H Specimen Type: PLASMA No comment entered. Ordering Provider: RENÉ VARGAS Report Released Date/Time: Jun 05, 2023 10:42 AM Reporting Lab: [facility] [address] Performing Lab: [facility] [address] [place] ([facility]) LIPID PANEL,NON -FASTING CHOLESTEROL IN VLDL [MASS/VOLUM E] IN SERUM OR PLASMA BY CALCULATION 21 <29 - 29 06/05 Specimen Type: PLASMA No comment entered. Ordering Provider: RENÉ VARGAS Report Released Date/Time: Jun 05, 2023 10:42 AM Reporting Lab: [facility] [address] Performing Lab: [address] [place] ([facility]) LIPID PANEL,NON -FASTING CHOLESTEROL NON HDL [MASS/VOLUM E] IN SERUM OR PLASMA 153 <129 - 129 06/05 H Specimen Type: PLASMA No comment entered. Ordering Provider: RENÉ VARGAS Report Released Date/Time: Jun 05, 2023 10:42 AM Reporting Lab: [facility] [address] Performing Lab: [facility] [phone] [place] [address] ([facility]) LIPID PANEL,NON -FASTING TRIGLYCERID E [MASS/VOLUM E] IN SERUM OR PLASMA 105 <149 - 149 06/05 Specimen Type: PLASMA No comment entered. Ordering Provider: RENÉ VARGAS Report Released Date/Time: Jun 05, 2023 10:42 AM Reporting Lab: [facility] [address] Performing Lab: [facility] [phone] [place] [address] ([facility]) TSH W/REFLEX TO FREE T4 THYROTROPIN [UNITS/VOLU ME] IN SERUM OR PLASMA 4.34 0.35 - 4.94 06/05 Specimen Type: PLASMA No comment entered. Ordering Provider: RENÉ VARGAS Report Released Date/Time: Jun 05, 2023 10:42 AM Reporting Lab: [facility] [id number] Performing Lab: [facility] [place] [address] [facility] ([facility]) Vital Signs Combined list of inpatient and outpatient Vital Signs from [employer] and [employer], ranging from 12 months to all on record, depending upon the facility. Vital Sign Value Date Comments Source SYSTOLIC BLOOD PRESSURE 136 06/05/2023 09:52:49 [facility] ([facility]) DIASTOLIC BLOOD PRESSURE 91 06/05/2023 09:52:49 [facility] ([facility]) PULSE OXIMETRY 96% 06/05/2023 09:52:49 [facility] [place] ([facility]) WEIGHT 194.1 06/05/2023 09:52:49 [facility] ([facility]) BMI 27kg/m2 06/05/2023 09:52:49 [facility] ([facility]) PAIN 0 06/05/2023 09:52:49 [facility] ([facility]) HEIGHT 70.866 06/05/2023 09:52:49 [facility] ([facility]) TEMPERATURE 97.8 06/05/2023 09:52:49 [facility] ([facility]) PULSE 106 06/05/2023 09:52:49 [facility] ([facility]) RESPIRATION 14 06/05/2023 09:52:49 [facility] ([facility]) Encounters Combined list of: 1) Encounters from Department of Veterans Affairs facilities going back up to thelast 18 months. 2) Encounters from the Department of Defense facilities going back up to 280 months. Location Location Details Encounter Type Encounter Number Reason For Visit Attending Provider ADM Date DC Date Status Disposition Source [facility] IS [facility] PRO PHONE CALL 11-20 MIN [id number] Diagnos is: ICD-10- CM Z71.89 Other specifi ed classification counselor ing<br/ > IKER MAYO 02/25 [facility] Outpatient Encounter [id number] 02/28 [facility] Outpatient Encounter [id number] 05/20 [facility] Outpatient Encounter [id number] KVNG WERNER 05/29 [facility] ([facility]) OFFICE O/P EST MOD 30-39 MIN [id number] Diagnos is: ICD-10- CM Z00.01 Encount er for general adult medical exam w abnorma l finding s
KYLE WALKER M 06/04 [facility] ([facility]) [facility] IS [facility] Outpatient Encounter [id number] 06[facility]08 [facility] Outpatient Encounter [id number] 06/08 [facility] OFFICE O/P NEW MOD 45-59 MIN [id number] Diagnos is: ICD-10- CM L30.9 Dermati tis, unspeci fied
FLACO IBANEZ ERT S 07/16 [facility] Outpatient Encounter [id number] 04/29 [facility] ([facility] OFFICE O/P EST HI 40-54 MIN [id number] Diagnos is: ICD-10- CM I48.19 Other persist ent atrial fibrill ation<b r/> NELLY VARGAS CIA 06/05 [facility] ([facility]) [place] ([facility]) OFF/OP EST MAY X REQ PHY/QHP [id number] Diagnos is: ICD-10- CM Z13.6 Encount er for screeni ng for cardiov ascular disorde rs
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
POEPPING,H EATHER L 06/16 [facility] Outpatient Encounter [id number] 06/22 [facility] ELECTROCAR DIOGRAM COMPLETE [id number] Diagnos is: ICD-10- CM Z13.6 Encount er for screeni ng for cardiov ascular disorde rs
ALEKS SUGGS TT A 07/01 [facility] OFF/OP CONSLTJ NEW/EST HI 55 [id number] Diagnos is: ICD-10- CM I48.91 Unspeci fied atrial fibrill ation<b r/> Antwon NORRIS M 07/01 [facility] Outpatient Encounter [id number] 07/16 [facility] MTMS BY PHARM EST 15 MIN [id number] Diagnos is: ICD-10- CM Z79.01 intermediate (curren t) use of anticoa gulants
JAI RUSSELL 08/07 [facility] Social History Combined list of available smoking, tobacco, and other social history from Department of Defense and Veterans Affairs facilities. Social History Type Response Date Comment [facility] e Tobacco smoking status NHIS VA-TOBACCO FORMER USER 06/05/2023 [place] ([facility] History of tobacco use VA-TOBACCO QUIT 1 5 YRS OR MORE 06/05/2023 [place] ([facility]) History of tobacco use VA-TOBACCO QUIT 1 5 YRS OR MORE 06/04/2022 [place] ([facility]) History of tobacco use VA-TOBACCO FORMER USER 06/05/2021 [place] ([facility]) History of tobacco use VA-TOBACCO QUIT 1 5 YRS OR MORE 05/23/2020 [place] ([facility]) History of tobacco use VA-TOBACCO QUIT 1 5 YRS OR MORE 05/20/2019 [place] ([facility]) History of tobacco use VA-TOBACCO FORMER USER 04/28/2018 [place] ([facility]) History of tobacco use FORMER TOBACCO US ER 7Y OR GREATER 07/16/2017 [place] ([facility]) History of tobacco use FORMER TOBACCO US ER 7Y OR GREATER 06/19/2016 [place] ([facility]) History of tobacco use FORMER TOBACCO US ER 7Y OR GREATER 07/11/2015 [place] ([facility]) History of tobacco use FORMER TOBACCO US ER 7Y OR GREATER 07/12/2014 [place] ([facility]) History of tobacco use FORMER TOBACCO US ER 7Y OR GREATER 08/20/2010 [place] ([facility]) Plan of Care List of future care activities from Department of Veterans Affairs facilities. Additional future care activities may be listed in the Assessment and Plan section. Date/Time Care Activity Care Activity Detail Facili ty 08/28/2023 AMBULATORY - NONE AMBULATORY - NONE [facility]
--- OUTSIDE RECORDS SUMMARY | 2023-08-28 12:54 | XMS_ITS | Encounter Summary ---
Author Name [facility] Organization [facility] Address [address] [place] [id number] Support Name Relationship Address Phone ANNA MARIEYONASANDREIA E Next of Kin [address] [address] ANDREIA THRASHER Emergency Contact [address] [place] [address] Insurance Providers: All [...] Name Patient's Relationship to Policy Galvan HUMANA [facility] (WNR) MEDICARE ADVANTAGE [facility] (WNR) Aug 03, 2017 [id number] LUCAS THRASHER PATIENT MEDICARE (WNR) MEDICARE (M) PART A May 03, 2013 PART A [id number] [phone] LUCAS THRASHER PATIENT MEDICARE (R) MEDICARE (M) PART B May 03, 2013 PART B [id number] [phone] LUCAS THRASHER PATIENT Selected Encounter This section includes the information on record at [place] for the Encounter. Date/Time Encounter Type Encounter Description Reason Provider Source Jun 16, 2023 03:13 PM QNHP OL DIG ASSMT&MGMT 21+ CLINICAL PHARMACY ICD-10-CM Z79.01 FDC (current) use of anticoagulants POEPPING,HEAT HER L IHE Encounter Template Text not used by [place] Assessments - Encounter Diagnoses This section includes the primary and secondary diagnoses documented for the Encounter. Date/Time Primary/Secondary Diagnosis Diagnosis Name Provider Source Jun 23, 2023 01:28 PM PRIMARY FDC (current) use of anticoagulants POEPPING,HEAT HER L [facility] Jun 23, 2023 01:28 PM SECONDARY Encounter for therapeutic drug level monitoring POEPMYKEL FERREIRA [facility] Jun 23, 2023 01:28 PM SECONDARY Unspecified atrial fibrillation POEPMYKEL FERREIRA [facility] Plan of Treatment: Future Appointments (+ 6 months) and Future Tests (+/- 45 days) The Plan of Treatment section includes future care activities for the patient from all [place] [facility]. This section includes future appointments and future orders which are active, pending or scheduled. Future Appointments This section includes appointments that were scheduled to occur 6 months from the date of the Encounter, up to a maximum of 20 appointments. The data comes from all [facility]. Appointment Date/Time Appointment Type Appointme nt Facility Name Jul 01, 2023 10:00 AM AMBULATORY - NONE [facility] Jul 01, 2023 10:30 AM AMBULATORY - MEDICINE [facility] Jul 01, 2023 11:00 AM AMBULATORY [facility]ICINE [facility] Aug 28, 2023 01:00 PM AMBULATORY - NONE [facility] Sep 23, 2023 10:45 AM AMBULATORY - MEDICINE [facility] Sep 23, 2023 11:00 AM AMBULATORY MEDICINE [facility] Active, Pending, and Scheduled Orders This section includes a listing of several types of active, pending, and scheduled orders, including clinic medications orders, diagnostic test orders, procedure orders and consult orders; where the start date of the order is 45 days before the date of the Encounter or 45 days after the date of theEncounter. The data comes from all [facility]. Test Date/Time Test Type Test Details Facility Name Jul 01, 2023 01:00 PM Consult Order CARDIAC EL ECTROPHYSIOLOGY OUTPT Cons Seat [facility] Jul 01, 2023 01:26 PM Consult Order COMMUNITY CARE-ECHOCARDIOGRAPHY Cons Seat [facility] Lab Results: +/- 30 days of the encounter This section includes the Chemistry and Hematology Lab Results on record with [place] for the patient. Radiology Reports and Pathology Reports are provided separately, in subsequent sections. Lab Results This section contains the Chemistry/Hematology Results that were resulted 30 days before or 30 daysafter the date of the Encounter. Date/Time Source Result Type Result - Unit Interpretation Reference Range Comment Jul 01, 2023 09:43 AM [facility] BNP Specimen Type: PLASMA No comment entered. Ordering Provider: DARIUS WILLAMS Report Released Date/Time: Jun 11, 2023 04:56 PM Reporting Lab: [facility] [address] Performing Lab: [facility] [address] BNP 756 H <99 Jul 01, 2023 09:43 AM [facility] CREATININE(INCLUDES EGFR) Specimen Type: PLASMA No comment entered. Ordering Provider: DARIUS WILLAMS Report Released Date/Time: Jun 11, 2023 04:56 PM Reporting Lab: [facility] [address] Performing Lab: [facility] [address] CREATININE 1.3 H 0.7-1.2 .CREAT EGFR(CKD-EPI) 57 L >60 Jul 01, 2023 09:43 AM [facility] UREA NITROGEN Specimen Type: PLASMA No comment entered. Ordering Provider: DARIUS WILLAMS Report Released Date/Time: Jun 11, 2023 04:56 PM Reporting Lab: [facility] [address] Performing Lab: [facility] [address] UREA NITROGEN 20 8-26 Jul 01, 2023 09:43 AM [facility] ELECTROLYTES/ANION GAP Specimen Type: PLASMA No comment entered. Ordering Provider: DARIUS WILLAMS Report Released Date/Time: Jun 11, 2023 04:56 PM Reporting Lab: [facility] [address] Performing Lab: [facility] [address] SODIUM 141 136-145 POTASSIUM 4.5 3.5-5.1 CHLORIDE 104 98-107 CO2 28 22-29 ANION GAP 9 5-15 Jun 05, 2023 10:54 AM [place] ([facility]) TSH W/REFLEX TO FREE T4 Specimen Type: PLASMA No comment entered. Ordering Provider: PING VARGAS Report Released Date/Time: Jun 05, 2023 10:42 AM Reporting Lab: [facility] [address] Performing Lab: [facility] [address] TSH 4.34 0.35-4.94 Jun 05, 2023 10:54 AM [place] ([facility]) FOLATE Specimen Type: SERUM No comment entered. Ordering Provider: PING VARGAS Report Released Date/Time: Jun 05, 2023 10:42 AM Reporting Lab: [facility] [address] Performing Lab: [address] FOLATE 17.7 >7.0 Jun 05, 2023 10:54 AM [place] ([facility]) B 12 Specimen Type: SERUM No comment entered. Ordering Provider: PING VARGAS Report Released Date/Time: Jun 05, 2023 10:42 AM Reporting Lab: [facility] [address] Performing Lab: [facility] [address] B 12 [phone] Jun 05, 2023 10:54 AM [place] ([facility]) HEMOGLOBIN A1C Specimen Type: BLOOD Comment: [...] Jun 05, 2023 10:42 AM Reporting Lab: [facility] [address] Performing Lab: [facility] [address] HEMOGLOBIN A1C 5.6 4.0-6.0 Jun 05, 2023 10:54 AM [place] ([facility]) LIPID PANEL,NON-FASTING Specimen Type: PLASMA No comment entered. Ordering Provider: PING VARGAS Report Released Date/Time: Jun 05, 2023 10:42 AM Reporting Lab: [facility] [address] Performing Lab: [facility] [address] CHOLESTEROL 240 H <199 .HDL 87 >40 LDL CALCULATION 132 H <99 VLDL CALCULATION 21 <29 NON HDL CHOLESTEROL 153 H <129 TRIG(NON FASTING) 105 <149 Jun 05, 2023 10:54 AM [place] ([facility]) COMPREHENSIVE METABOLIC PANEL+MG Specimen Type: PLASMA No comment entered. Ordering Provider: PING VARGAS Report Released Date/Time: Jun 05, 2023 10:42 AM Reporting Lab: [facility] [address] Performing Lab: [facility] [address] CREATININE 1.3 H 0.7-1.2 UREA NITROGEN 21 [...] Encounter. 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 SUBJECTIVE/OBJECTIVE: Obtained from chart review, [facility]/outside records, and pt today by phone. No Active bleeding/increased bleeding risk: No Active endocarditis: No Falls risk: - Counseled on what to do for fall/head injury No Abnormal mental status\compliance concerns: No Significant drug interactions: - No NSAID/ASA use reported; counseled to avoid d/t bleed risk YES Alcohol use: - Baseline: ~1-3 cocktails daily - Discussed recs for NMT 2 drinks/24 hrs and counseled on inc bleed risk No Renal or hepatic dysfunction: No Significant mitral stenosis, endocarditis, or mechanical valve replacement: - No ECHO available for review but pt reports no h/o valve replacement or valvular abnormalities and will be seeing cardiology in the future. No Active cancer/thrombophilia: No Prior bariatric or bowel resection surgery: No Weight >150kg or BMI >50: Comanaged patients: YES Agrees to [facility] management, comanagement not allowed: YES Agrees to contact us if DOAC stopped/dose changed by other providers: YES Agrees to routine [facility] labs when requested: YES Agrees to contact us with major changes (health/medications) at OSH: Dashboard flags: none as no active Rx yet Allergies: DOXAZOSIN (May 14, 2011) Active and Recently Outpatient Medications (excluding Supplies): Active Outpatient Medications Status 1) FLUOCINONIDE 0.05% OINT APPLY MODERATE AMOUNT ACTIVE TOPICALLY TWICE A DAY NEEDED TO THE RASH ON THE LOWER LEGS WHEN IT'S REALLY BAD. USE FOR ONLY 1-2 WEEKS AT A TIME THEN SWITCH BACK TO TRIAMCINOLONE OR STOP. RESTART NEEDED. 2) TRIAMCINOLONE ACETONIDE 0.1% CREAM APPLY THIN LAYER [...] CAP/TAB 1 TABLET MOUTH EVERY DAY ACTIVE 6) Non-VA WARFARIN TAB 7.5 MG MOUTH EVERY DAY ACTIVE 8 Total Medications LABS ---- Age: 73 Weight: 194.1 lb [88.04 kg] (06/05/2023 09:52) BMI: 27.2 Height: 70.866 in [180.0 cm] (06/05/2023 09:52) 04/29/2023 Outside Hgb 12[address] CREATININE 1.3 H PLASMA (06/05/23 10:54) Non-VA Scr excluded from calculation: CrCl=61.14 (Wt: 06/05/2023 09:52) (Actual Body Weight) Collection DT Specimen Test Name Result Units Ref Range 06/05/2023 10:54 PLASMA BILIRUBIN, TOTAL 0.5 mg/dL 0.2 - 1.2 06/05/2023 10:54 PLASMA ALKALINE PHOSPHAT 60 U/L 40 - 150 06/05/2023 10:54 PLASMA AST/SGOT 19 U/L Ref: <=34 06/05/2023 10:54 PLASMA ALT/SGPT 21 U/L Ref: <=55 No data available for: INR or APTT - current warfarin mgmt through [facility] ASSESSMENT/PLAN: Appropriate for transition from warfarin to DOAC use and agree with transition to apixaban with age 73. Patient does NOT meet 2 out of 3 criteria (age >/= 80 years, creatinine >/=1.5, weight </= 60 kg) for apixaban dose reduction in A.fib. New start baseline labs within the past ~30 days available & acceptable. Patient will communicate with current warfarin management team to get f/u INR drawn and work closely with them to appropriately transition over to apixaban when INR < 2. - Approve DOAC use: Warfarin --> Apixaban 5mg q12h - Will mail out new apixaban Rx from [facility]. - Patient will continue taking warfarin as directed by local [facility] clinic until he receives apixaban in the mail and will get an INR drawn prior to transitioning over with direction by local warfarin management team when INR < 2. - Education attempt(s) below. Will mail DOAC education materials. - Appropriate review planned: initial, ~4-week, periodic. - Lab monitoring frequency defined by dashboard or as clinically indicated. - Monitor dashboard for labs, drug interactions, and compliance. - FDC use of anticoagulants added to problem list. Time spent: 30 min Patient Education of Treatment plan: Patient indicates readiness to learn, verbalizes understanding, agreement and satisfaction with the treatment plan. Denies further questions. Anticoagulation Educational Assessment Part One Barriers/Special Needs No barriers identified Part Two Readiness to learn No barriers identified PARTICIPANTS: Patient TEACHING STRATEGY: 1:1, Written/print materials Apixaban Content Reviewed: o Recognize medication by names (apixaban (Eliquis)) & proper tablet identification (on prescription bottle) o Indication, expected duration for therapy o Daily dosage, importance of medication adherence, management of missed/extra doses o Monitoring requirements, importance of compliance with follow-up lab monitoring requirements o Risks and benefits of therapy to include possible adverse reactions or medication failure and what to do if these occur; fall-associated risks & importance of seeking urgent care if falls occur o Interactions (drug, alcohol, and disease states) o Importance of informing your anticoagulation provider as soon as possible when major changes in medications/health occur, upcoming procedures are expected that require interruption, or for evidence of new bleeds or thromboses Patient received a written, detailed copy of the educational handout to include contact information for anticoagulation clinic and instructions for how to obtain supply of medication. PATIENT/FAMILY RESPONSE (OUTCOME): Verbalizes critical information and understanding about the topic FOLLOW-UP RECOMMENDED: None needed Time spent on education: 15 minutes /delaney Reaves PharmD, BCACP Clinical Jet Engine Mechanic Signed: 06/23/2023 13:28 SEN REAVES [facility]
--- OUTSIDE RECORDS SUMMARY | 2023-08-28 12:54 | XMS_ITS | Encounter Summary ---
Author Name [facility] of [facility] Organization [facility] of [facility] Address [address] [place] [id number] Support Name Relationship Address Phone ANNA MARIE ANDREIA Mtz Next of Kin [address] [place] [address] ANDREIA THRASHER Emergency Contact [phone] [facility] [address] Insurance Providers: All historical and current [...] Name Patient's Relationship to Policy Galvan HUMANA [facility] (WNR) MEDICARE ADVANTAGE [facility] (R) Aug 03, 2017 [id number] LUCAS THRASHER PATIENT MEDICARE (WNR) MEDICARE (M) PART A May 03, 2013 PART A [id number] LUCAS THRASHER PATIENT MEDICARE (WNR) MEDICARE (M) PART B May 03, 2013 PART B [id number] [phone] LUCAS THRASHER PATIENT Selected Encounter This section includes the information on record at [place] for the Encounter. Date/Time Encounter Type Encounter Description Reason Provider Source Jun 05, 2023 10:45 AM OFF/OP EST DECEMBER X REQ PHY/QHP EKG ICD-10-CM Z13.6 Encounter for screening for cardiovascular disorders SAVANNAH WERNER Encounter Template Text not used by [facility] Assessments - Encounter Diagnoses This section includes the primary and secondary diagnoses documented for the Encounter. Date/Time Primary/Secondary Diagnosis Diagnosis Name Provider Source Jun 05, 2023 10:30 AM PRIMARY Encounter for screening for cardiovascular disorders SAVANNAH WERNER ([facility]) Plan of Treatment: Future Appointments (+ 6 months) and Future Tests (+/- 45 days) The Plan of Treatment section includes future care activities for the [facility] [place] [facility] This section includes future appointments and future orders which are active, pending or scheduled. Future Appointments This section includes appointments that were scheduled to occur 6 months from the date of the Encounter, up to a maximum of 20 appointments. The data comes from all [facility]. Appointment Date/Time Appointment Type Appointme nt Facility Name Jul 01, 2023 10:00 AM AMBULATORY - NONE [facility] Jul 01, 2023 10:30 AM AMBULATORY - MEDICINE [facility] Jul 01, 2023 11:00 AM AMBULATORY MEDICINE [facility] Aug 28, 2023 01:00 PM AMBULATORY - NONE [facility] Sep 23, 2023 10:45 AM AMBULATORY MEDICINE [facility] Sep 23, 2023 11:00 AM AMBULATORY MEDICINE [facility] Active, Pending, and Scheduled Orders This section includes a listing of several types of active, pending, and scheduled orders, including clinic medications orders, diagnostic test orders, procedure orders and consult orders; where the start date of the order is 45 days before the date of the Encounter or 45 days after the date of theEncounter. The data comes from all [facility]. Test Date/Time Test Type Test Details Facility Name Jul 01, 2023 01:00 PM Consult Order CARDIAC EL ECTROPHYSIOLOGY OUTPT Cons Migr[facility] Jul 01, 2023 01:26 PM Consult Order COMMUNITY CARE-ECHOCARDIOGRAPHY [facility] Lab Results: +/- 30 days of the encounter This section includes the Chemistry and Hematology Lab Results on record with [place] for the patient. Radiology Reports and Pathology Reports are provided separately, in subsequent sections. Lab Results This section contains the Chemistry/Hematology Results that were resulted 30 days before or 30 daysafter the date of the Encounter. Date/Time Source Result Type Result - Unit Interpretation Reference Range Comment Jul 01, 2023 09:43 AM [facility] BNP Specimen Type: PLASMA No comment entered. Ordering Provider: DARIUS WILLAMS Report Released Date/Time: Jun 11, 2023 04:56 PM Reporting Lab: [facility] [id number] Performing Lab: [facility] [id number] BNP 756 H <99 Jul 01, 2023 09:43 AM [facility] CREATININE(INCLUDES EGFR) Specimen Type: PLASMA No comment entered. Ordering Provider: DARIUS WILLAMS Report Released Date/Time: Jun 11, 2023 04:56 PM Reporting Lab: [facility] [id number] Performing Lab: [facility] [address] CREATININE 1.3 H 0.7-1.2 .CREAT EGFR(CKD-EPI) 57 L >60 Jul 01, 2023 09:43 AM [facility] UREA NITROGEN Specimen Type: PLASMA No comment entered. Ordering Provider: DARIUS WILLAMS Report Released Date/Time: Jun 11, 2023 04:56 PM Reporting Lab: [facility] [id number] Performing Lab: [facility] [id number] UREA NITROGEN 20 8-26 Jul 01, 2023 09:43 AM [facility] ELECTROLYTES/ANION GAP Specimen Type: PLASMA No comment entered. Ordering Provider: DARIUS WILLAMS Report Released Date/Time: Jun 11, 2023 04:56 PM Reporting Lab: [facility] [address] Performing Lab: [facility] [address] SODIUM 141 136-145 POTASSIUM 4.5 3.5-5.1 CHLORIDE 104 98-107 CO2 28 22-29 ANION GAP 9 5-15 Jun 05, 2023 10:54 AM [facility]) TSH W/REFLEX TO FREE T4 Specimen Type: PLASMA No comment entered. Ordering Provider: PING VARGAS Report Released Date/Time: Jun 05, 2023 10:42 AM Reporting Lab: [facility] [address] Performing Lab: [facility] [address] TSH 4.34 0.35-4.94 Jun 05, 2023 10:54 AM [facility] ([facility]) B 12 Specimen Type: SERUM No comment entered. Ordering Provider: PING VARGAS Report Released Date/Time: Jun 05, 2023 10:42 AM Reporting Lab: [facility] [address] Performing Lab: [facility] [address] B 12 [phone] Jun 05, 2023 10:54 AM [facility]) HEMOGLOBIN A1C Specimen Type: BLOOD Comment: Values obtained from A1C measurements can vary. For typical A1C assays, a reported value of 7.0 could actually be between 6.7 and 7.3 if measured by a reference method. A reported value of 9.0 could actually be between 8.7 and 9.3. Ref: http://www. sp.org/CAPdat a.asp Ordering Provider: PING VARGAS Report Released Date/Time: Jun 05, 2023 10:42 AM Reporting Lab: [facility] [phone] Performing Lab: [facility] [address] HEMOGLOBIN A1C 5.6 4.0-6.0 Jun 05, 2023 10:54 AM [facility]) FOLATE Specimen Type: SERUM No comment entered. Ordering Provider: PING VARGAS Report Released Date/Time: Jun 05, 2023 10:42 AM Reporting Lab: [facility] [address] Performing Lab: [facility] [address] FOLATE 17.7 >7.0 Jun 05, 2023 10:54 AM [facility]) LIPID PANEL,NON-FASTING Specimen Type: PLASMA No comment entered. Ordering Provider: PING VARGAS Report Released Date/Time: Jun 05, 2023 10:42 AM Reporting Lab: [facility] [address] Performing Lab: [facility] [address] CHOLESTEROL 240 H <199 .HDL 87 >40 LDL CALCULATION 132 H <99 VLDL CALCULATION 21 <29 NON HDL CHOLESTEROL 153 H <129 TRIG(NON FASTING) 105 <149 Jun 05, 2023 10:54 AM [facility]) COMPREHENSIVE METABOLIC PANEL+MG Specimen Type: PLASMA No comment entered. Ordering Provider: PING VARGAS Report Released Date/Time: Jun 05, 2023 10:42 AM Reporting Lab: [facility] [phone] Performing Lab: [facility] [address] CREATININE 1.3 H 0.7-1.2 UREA NITROGEN 21 [...] AM 123/82 mm[Hg] 99 % [facility]) Jun 05, 2023 09:52 AM 97.8 F 106 /min 136/91 mm[Hg] 14 /min 96 % 0 70.866 in 194.1 lb 27 [facility]) Social History: Smoking Status (Most current) and Tobacco Use (All prior to encounter date) This section includes the most current, and the historical, smoking and tobacco- related health factors from the [place] facility where the Encounter took place. Current Smoking Status This section includes the most current smoking, or tobacco-related health factor, from the [place] facility where the Encounter took place. Date/Time Current Smoking Status Comment Petros carr Jun 05, 2023 10:00 AM VA-TOBACCO FORMER USER [facility] ([facility]) Tobacco Use History This section includes a history of the smoking, or tobacco-related health factors, that were collected on or before the date of the Encounter. The data comes from the [place] facility where the Encounter took place. Date/Time Smoking Status/Tobacco Use Comment Michelle guzmán Jun 05, 2023 10:00 AM VA-TOBACCO QUIT 15 YRS OR MORE [facility] ([facility]) Jun 04, 2022 02:00 PM VA-TOBACCO FORMER USER [facility] ([facility]) Jun 04, 2022 02:00 PM VA-TOBACCO QUIT 15 YRS OR MORE [facility] ([facility]) Jun 05, 2021 10:00 AM VA-TOBACCO FORMER USER [facility] ([facility]) Jun 05, 2021 10:00 AM VA-TOBACCO QUIT 15 YRS OR MORE [facility] ([facility]) May 23, 2020 11:00 AM VA-TOBACCO FORMER USER [facility] ([facility]) May 23, 2020 11:00 AM VA-TOBACCO QUIT 15 YRS OR MORE [facility] ([facility]) May 20, 2019 01:28 PM VA-TOBACCO FORMER USER [facility] ([facility]) May 20, 2019 01:28 PM VA-TOBACCO QUIT 15 YRS OR MORE [facility] ([facility]) Apr 28, 2018 11:47 AM VA-TOBACCO FORMER USER [facility] ([facility]) Apr 28, 2018 11:47 AM VA-TOBACCO QUIT 15 YRS OR MORE [facility] ([facility]) Jul 16, 2017 02:25 PM FORMER TOBACCO USER 7Y OR GREATE R [facility] ([facility]) Jun 19, 2016 01:33 PM FORMER TOBACCO USER 7Y OR GREATE R [facility] ([facility]) Jul 11, 2015 12:11 PM FORMER TOBACCO USER 7Y OR GREATE R [facility] ([facility]) Jul 12, 2014 11:56 AM FORMER TOBACCO USER 7Y OR GREATE R [facility] ([facility]) Aug 20, 2010 09:10 AM FORMER TOBACCO USER 7Y OR GREATE R [facility] ([facility])
--- OUTSIDE RECORDS SUMMARY | 2023-08-28 12:54 | XMS_ITS | Encounter Summary ---
Author Name [facility] Organization [facility] of [facility] Address [address] [place] [address] Support Name Relationship Address Phone ANNA MARIEYONASANDREIA E Next of Kin [address] [place] [address] ANDREIA THRASHER Emergency Contact [address] [place] [address] Insurance Providers: All [...] Name Patient's Relationship to Policy Galvan HUMANA [facility] (WNR) MEDICARE ADVANTAGE [facility] (WNR) Aug 03, 2017 [id number] LUCAS THRASHER PATIENT MEDICARE (WNR) MEDICARE (M) PART A May 03, 2013 PART A [id number] LUCAS THRASHER PATIENT MEDICARE (WNR) MEDICARE (M) PART B May 03, 2013 PART B [id number] [phone] LUCAS THRASHER PATIENT Selected Encounter This section includes the information on record at [place] for the Encounter. Date/Time Encounter Type Encounter Description Reason Pro vider Source Jun 22, 2023 11:10 AM Outpatient Encounter CLINICAL PHARMACY E Encounter Template Text not used by [place] Plan of Treatment: Future Appointments (+ 6 months) and Future Tests (+/- 45 days) The Plan of Treatment section includes future care activities for the patient from all [place] treatmentfacilities. This section includes future appointments and future orders which are active, pending or scheduled. Future Appointments This section includes appointments that were scheduled to occur 6 months from the date of the Encounter, up to a maximum of 20 appointments. The data comes from all [place] treatment [facility]. Appointment Date/Time Appointment Type Appointme nt Facility Name Jul 01, 2023 10:00 AM AMBULATORY - NONE [facility] Jul 01, 2023 10:30 AM AMBULATORY - MEDICINE [facility] Jul 01, 2023 11:00 AM AMBULATORY - MEDICINE [facility] Aug 28, 2023 01:00 PM AMBULATORY - NONE [facility] Sep 23, 2023 10:45 AM AMBULATORY - MEDICINE [facility] Sep 23, 2023 11:00 AM AMBULATORY - MEDICINE [facility] Active, Pending, and Scheduled Orders This section includes a listing of several types of active, pending, and scheduled orders, including clinic medications orders, diagnostic test orders, procedure orders and consult orders; where the start date of the order is 45 days before the date of the Encounter or 45 days after the date of theEncounter. The data comes from all [facility]. Test Date/Time Test Type Test Details Facility Name Jul 01, 2023 01:00 PM Consult Order CARDIAC EL ECTROPHYSIOLOGY OUTPT Cons Credit Collections [facility] Jul 01, 2023 01:26 PM Consult Order COMMUNITY CARE-ECHOCARDIOGRAPHY Cons Credit Collections [facility] Lab Results: +/- 30 days [...] Range Comment Jul 01, 2023 09:43 AM [facility] BNP Specimen Type: PLASMA No comment entered. Ordering Provider: DARIUS WILLAMS Report Released Date/Time: Jun 11, 2023 04:56 PM Reporting Lab: [facility] [phone] Performing Lab: [facility] [address] BNP 756 H <99 Jul 01, 2023 09:43 AM [facility] CREATININE(INCLUDES EGFR) Specimen Type: PLASMA No comment entered. Ordering Provider: DARIUS WILLAMS Report Released Date/Time: Jun 11, 2023 04:56 PM Reporting Lab: [facility] [address] Performing Lab: [facility] [address] CREATININE 1.3 H 0.7-1.2 .CREAT EGFR(CKD-EPI) 57 L >60 Jul 01, 2023 09:43 AM [facility] UREA NITROGEN Specimen Type: PLASMA No comment entered. Ordering Provider: DARIUS WILLAMS Report Released Date/Time: Jun 11, 2023 04:56 PM Reporting Lab: [facility] [address] Performing Lab: [facility] [address] UREA NITROGEN 20 8-26 Jul 01, 2023 09:43 AM [facility] ELECTROLYTES/ANION GAP Specimen Type: PLASMA No comment entered. Ordering Provider: DARIUS WILLAMS Report Released Date/Time: Jun 11, 2023 04:56 PM Reporting Lab: [facility] [address] Performing Lab: [facility] [address] SODIUM 141 136-145 POTASSIUM 4.5 3.5-5.1 CHLORIDE 104 98-107 CO2 28 22-29 ANION GAP 9 5-15 Jun 05, 2023 10:54 AM [facility] ([facility]) TSH W/REFLEX TO FREE T4 Specimen Type: PLASMA No comment entered. Ordering Provider: PING VARGAS Report Released Date/Time: Jun 05, 2023 10:42 AM Reporting Lab: [facility] [address] Performing Lab: [facility] [address] TSH 4.34 0.35-4.94 Jun 05, 2023 10:54 AM [facility] ([facility]) FOLATE Specimen Type: SERUM No comment entered. Ordering Provider: PING VARGAS Report Released Date/Time: Jun 05, 2023 10:42 AM Reporting Lab: [facility] [address] Performing Lab: [facility] [address] FOLATE 17.7 >7.0 Jun 05, 2023 10:54 AM [facility] ([facility]) B 12 Specimen Type: SERUM No comment entered. Ordering Provider: PNIG VARGAS Report Released Date/Time: Jun 05, 2023 10:42 AM Reporting Lab: [facility] [address] Performing Lab: [facility] [address] B 12 [phone] Jun 05, 2023 10:54 AM [facility] ([facility]) HEMOGLOBIN A1C Specimen Type: BLOOD Comment: Values [...] Jun 05, 2023 10:42 AM Reporting Lab: [facility] [address] Performing Lab: [facility] [address] HEMOGLOBIN A1C 5.6 4.0-6.0 Jun 05, 2023 10:54 AM [facility] ([facility]) LIPID PANEL,NON-FASTING Specimen Type: PLASMA No comment entered. Ordering Provider: PING VARGAS Report Released Date/Time: Jun 05, 2023 10:42 AM Reporting Lab: [facility] [address] Performing Lab: [facility] [address] CHOLESTEROL 240 H <199 .HDL 87 >40 LDL CALCULATION 132 H <99 VLDL CALCULATION 21 <29 NON HDL CHOLESTEROL 153 H <129 TRIG(NON FASTING) 105 <149 Jun 05, 2023 10:54 AM [facility] ([facility]) COMPREHENSIVE METABOLIC PANEL+MG Specimen Type: PLASMA No comment entered. Ordering Provider: PING VARGAS Report Released Date/Time: Jun 05, 2023 10:42 AM Reporting Lab: [facility] [phone] Performing Lab: [facility] [address] CREATININE 1.3 H 0.7-1.2 UREA NITROGEN 21 [...] Encounter. Date/Time Encounter Note(s) Provider Source Jun 22, 2023 11:10 AM LETTERS: LOCAL TITLE: FOLLOW UP RESULTS LETTER STANDARD TITLE: LETTERS DATE OF NOTE: JUN 22, 2023@11:10 ENTRY DATE: JUN 22, 2023@11:10:43 AUTHOR: CLAUDIA REAVES COSIGNER: URGENCY: STATUS: COMPLETED SUBJECT: anticoag [facility] [address] [place] [address] Jun AAKASH LAN ANNA MARIE [address] [place] [address] Dear [place]: We are writing from the [facility]. Your provider requested us to help manage and prescribe your anticoagulant, which treats and/or prevents blood clots and strokes. We were unsuccessful at reaching you by telephone after multiple attempts. Please let us know if there is a better phone number or method of contact to use. Managing anticoagulants involves us working together closely. To assist you in safely taking an anticoagulant, please promptly call us back at [phone], option 3. If we do not hear back from you within 2 weeks by July 06, 2023, we will assume you are not interested in our assistance with prescribing and managing your anticoagulant. If you require our assistance after that date, please let your [place] primary care provider know and they can enter a new consult to our clinic. We hope you are doing well. Thank you for your service and we look forward to hearing from you. Sincerely, [facility] Team ----- Phone number: [phone] -option 1 to schedule or reschedule an appointment -option 2 to refill medications or call the phone number on the bottle -option 3 for all other communication Fax number: [phone] Clinic Hours: Thursday-Thursday, 8:00am to 4:00pm (excluding Federal holidays) Claudia Reaves, PharmD, BCACP Clinical Neuroradiologist CLAUDIA REAVES [facility]
== END 2023-08-28 12:48 | disposition home or self-care (01) ==
LOC: RAD 12:48
PROVIDERS: PCP Internal Medicine; Visit Provider Nurse Practitioner Adult Health
DX: I48.19 Other persistent atrial fibrillation (principal); I35.1 Nonrheumatic aortic (valve) insufficiency; I34.0 Nonrheumatic mitral (valve) insufficiency; I07.1 Rheumatic tricuspid insufficiency; I35.0 Nonrheumatic aortic (valve) stenosis
CPT/HCPCS: 93306

== ENCOUNTER 2024-02-03 09:47 | Emergency (ER) | payer MEDICARE, SELFPAY ==
[2024-02-03] VITALS (29 sets, daily range): BP systolic 118–139; BP diastolic 73–84; PULSE 56–66; RESP 12–18; TEMP 36.4; O2SAT 92–99; BMI 27.2
--- NOTE | 2024-02-03 10:08 | ED_ITS ---
HPI - General Adult General Date Seen: 02/03/24 Chief complaint: Weakness Stated complaint: Pain in neck, dizzy, shortness of breath, weak Time Seen by Provider: 02/03/24 10:03 History of Present Illness HPI narrative: 73-year-old gentleman who has a past medical history of AFib (was in the ER 04/2023 for AFib with RVR. 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 Has been seen by ENT Dr. Hernandez in the [facility] and by radiation oncology at [facility], alcohol use, thrombocytopenia, anxiety. He recalls that he had the AFib diagnosed here in [place] last April. Since then he had workup at the [facility]. He says he thinks he had a stress test with an ultrasound that was normal. He underwent a electrical cardioversion at the [facility] last fall and has been normal since then. As far as he knows he has not had any episodes of AFib. He is on 3 different medicines for AFib but can not tell me what the names are. One of a may be warfarin. Another 1 starts with the D (possibly diltiazem?). He knows he has a heart murmur. As far as he knows no significant valvular disease. He has never had any surgical recommendation. He presents to the ER today because he had sudden onset of dizziness, generalized weakness, pain in left side of his neck that began this morning while he was in his barn doing chores. He actually recalls that he had an episode like this 2 days ago on Thursday. He had been in his garage working on his more, sharpening the blades into inhibition where he felt dizzy, weak in both of his legs, presyncopal. On Thursday had to go lay down and it took about 45 minutes for the episode went away. He does not recall any chest pain, shortness of breath, jaw pain or arm pain, or any palpitations on Thursday. He had another episode this morning. He had felt normally this morning when he got up. He ate a piece of toast for breakfast as he normally did. He was out in his barn doing chores for about 20 minutes when he rather abruptly began to feel dizzy, presyncopal, weak in both of his knees, and also today had some discomfort in his left neck. He felt like he was going to pass out. He is not having any pain in his chest but he does ?notice it more than usual?. Knowing that this is his 2nd episode in 3 days, he knew he had to come here to the ER to be checked out. Now that he is here in the ER he says he is largely feeling back to normal. No recent fever. No cough. No swelling in his legs. No abdominal pain or back pain. Bowel movements have been normal. Echocardiogram 08/28/2023 1. Normal LV size. Mildly increased LV wall thickness. Normal global systolic function. EF 59% 2. RV cavity size normal. Global systolic RV function normal. 4. Aortic valve is calcified. LV OT calcification. Moderate aortic stenosis and trivial regurg. Aortic valve peak velocity 3.0 m/s. Peak gradient 36 mmHg. Mean gradient 14 mmHg. Aortic valve area is 1.08 centimeter sq 5. Moderate to severe tricuspid regurg 6. Dilated ascending aorta 4.2 cm. 9. Mildly increased PA pressures by tricuspid regurgitation velocity and right atrial pressure of 31 mmHg plus RAP Related Data Home Medications ?Medication ?Instructions ?Recorded ?Confirmed folic acid 1 mg tablet 1 mg PO .prn 02/17/23 12/15/23 apixaban 5 mg tablet (Eliquis) 5 mg PO BID 12/15/23 02/03/24 metoprolol succinate 25 mg 25 mg PO QDAY 12/15/23 02/03/24 tablet,extended release 24 hr Previous Rx's ?Medication ?Instructions ?Recorded alprazolam 1 mg tablet 1 mg PO DAILY PRN anxiety #60 tabs 01/08/24 Allergies Allergy/AdvReac Type Severity Reaction Status Date / Time No Known Drug Allergies Allergy Verified 02/03/24 10:02 [facility] Medical History (Updated 02/03/24 @ 15:07 by Manuel Cho MD) Atrial fibrillation ?I48.91 - Unspecified atrial fibrillation (ICD-10) Anemia ?D64.9 - Anemia, unspecified (ICD-10) History of adenomatous polyp of colon (11/08/14) ?Z86.010 - Personal history of colonic polyps (ICD-10) Primary tongue squamous cell carcinoma ?C02.9 - Malignant neoplasm of tongue, unspecified (ICD-10) Anxiety ?F41.9 - Anxiety disorder, unspecified (ICD-10) Surgical History (Updated 02/11/23 @ 09:10 by Kiara Daniel ~ PSR) History of vasectomy (06/02/03) ?Z98.52 - Vasectomy status (ICD-10) History of umbilical hernia repair (10/18/90) ?Z98.890 - Other specified postprocedural states (ICD-10) ?Z87.19 - Personal history of other diseases of the digestive system (ICD-10) History of nasal septoplasty (10/18/90) ?Z98.890 - Other specified postprocedural states (ICD-10) S/P radiation therapy ?Z92.3 - Personal history of irradiation (ICD-10) Status post chemotherapy ?Z92.21 - Personal history of antineoplastic chemotherapy (ICD-10) Social History What is your current living situation?: I presently have a place to live Problems where you live: no known problems Problems where you live details: N/A In the past 12 months, utilities in danger of being shut off: no In past 12 months, lack of transportation kept you from medical appts, meetings, work, or getting things needed for daily living: no In the past 12 mos, have been you worried that your food would run out before you had money to buy more?: never true In the past 12 mos, the food you bought just didn't last and you didn't have money to buy more?: never true Smoking Status: Current some day smoker Second hand tobacco smoke exposure: No How often do you have a drink containing alcohol: 4 or more times a week A lcohol type: hard liquor How many standard drinks containing alcohol do you have on a typical day: 3 or 4 How often do you have six or more drinks on one occasion: Monthly AUDIT-C Alcohol total score: 7 Non-prescribed substance use: marijuana (any form) Non-prescribed substance use details: marijuana products daily Caffeine: No How often does anyone, including family, friends and others, physically hurt you : never How often does anyone, including family, friends and others, insult or talk down to you: never How often does anyone, including family, friends and others, threaten you with harm: never How often does anyone, including family, friends and others, scream or curse at you: never Little interest or pleasure in doing things: not at all Feeling down, depressed, or hopeless: several days service: Yes Exam Narrative: Exam Narrative: Constitutional: Appears well-developed and well-nourished. Alert. Conversant. Non toxic. HENT: Head: Atraumatic. Nose: Nose normal. Mouth/Throat: Oral mucosa is clear and moist. no trismus. Pharynx normal. Tonsils symmetric. No tonsillar enlargement, erythema, or exudate. Eyes: Morning round tinted sunglasses. Conjunctivae normal. EOM normal. Pupils equal, round, and reactive to light. No scleral icterus. Neck: Normal range of motion. Neck supple. No tracheal deviation present. No JVD Cardiovascular: Normal rate, regular rhythm. No gallop. No friction rub. Systolic murmur heard. Symmetric radial artery pulses Pulmonary/Chest: Effort normal. No stridor. No respiratory distress. No wheezes. No rales. No rhonchi . No tenderness. Abdominal: Soft. Bowel sounds normal. No distension. No mass. No tenderness. No rebound. No guarding. Musculoskeletal: RUE: Normal range of motion. No tenderness. No deformity LUE: Normal range of motion. No tenderness. No deformity RLE: Normal range of motion. No edema. No tenderness. No deformity LLE: Normal range of motion. No edema. No tenderness. No deformity Lymph: No cervical adenopathy. Neurological: Alert and oriented to person, place, and time. Normal strength. CN II-VII intact. No sensory deficit. GCS eye subscore is 4. GCS verbal subscore is 5. GCS motor subscore is 6. Normal coordination Skin: Skin is warm and dry. No rash noted. No pallor. Normal capillary refill. Psychiatric: Normal mood. Normal affect. Const: Vital Signs, click to edit/add: Vital Signs - 24 hr 02/03/24 10:01 02/03/24 10:02 02/03/24 10:03 Temperature 97.6 F Pulse Rate 64 65 Pulse Rate [Pulse Oximeter] 65 Respiratory Rate 12 18 Blood Pressure 118/73 Blood Pressure [Ri ght Upper Arm] 118/73 Pulse Oximetry 97 96 93 Oxygen Delivery Me thod Room Air 02/03/24 10:15 02/03/24 10:30 02/03/24 10:32 Temperature Pulse Rate 63 64 66 Pulse Rate [Pulse Oximeter] Respiratory Rate Blood Pressure 127/83 Blood Pressure [Ri ght Upper Arm] Pulse Oximetry 92 97 98 Oxygen Delivery Me thod 02/03/24 10:45 02/03/24 11:00 02/03/24 11:02 Temperature Pulse Rate 62 61 61 Pulse Rate [Pulse Oximeter] Respiratory Rate Blood Pressure 128/78 Blood Pressure [Ri ght Upper Arm] Pulse Oximetry 95 95 95 Oxygen Delivery Me thod 02/03/24 11:23 02/03/24 11:30 02/03/24 11:32 Temperature Pulse Rate 59 L 59 L 58 L Pulse Rate [Pulse Oximeter] Respiratory Rate Blood Pressure 134/79 Blood Pressure [Ri ght Upper Arm] Pulse Oximetry 98 96 96 Oxygen Delivery Me thod 02/03/24 11:45 02/03/24 12:00 02/03/24 12:02 Temperature Pulse Rate 60 60 60 Pulse Rate [Pulse Oximeter] Respiratory Rate Blood Pressure 133/78 Blood Pressure [Ri ght Upper Arm] Pulse Oximetry 96 95 95 Oxygen Delivery Me thod 02/03/24 12:02 02/03/24 12:02 02/03/24 12:15 Temperature Pulse Rate 60 60 59 L Pulse Rate [Pulse Oximeter] Respiratory Rate Blood Pressure 133/78 133/78 Blood Pressure [Ri ght Upper Arm] Pulse Oximetry 95 95 95 Oxygen Delivery Me thod 02/03/24 12:30 02/03/24 12:32 02/03/24 12:33 Temperature Pulse Rate 62 61 62 Pulse Rate [Pulse Oximeter] Respiratory Rate Blood Pressure 134/78 Blood Pressure [Ri ght Upper Arm] Pulse Oximetry 97 96 96 Oxygen Delivery Me thod 02/03/24 12:45 02/03/24 13:34 02/03/24 13:36 Temperature Pulse Rate 59 L 61 63 Pulse Rate [Pulse Oximeter] Respiratory Rate Blood Pressure 139/84 Blood Pressure [Ri ght Upper Arm] Pulse Oximetry 95 97 97 Oxygen Delivery Me thod 02/03/24 13:45 02/03/24 14:00 02/03/24 14:05 Temperature Pulse Rate 58 L 59 L 57 L Pulse Rate [Pulse Oximeter] Respiratory Rate Blood Pressure Blood Pressure [Ri ght Upper Arm] Pulse Oximetry 96 99 97 Oxygen Delivery Me thod 02/03/24 14:15 02/03/24 14:30 02/03/24 14:35 Temperature Pulse Rate 56 L 57 L 56 L Pulse Rate [Pulse Oximeter] Respiratory Rate Blood Pressure Blood Pressure [Ri ght Upper Arm] Pulse Oximetry 97 96 95 Oxygen Delivery Me thod 02/03/24 14:45 Temperature Pulse Rate 58 L Pulse Rate [Pulse Oximeter] Respiratory Rate Blood Pressure Blood Pressure [Ri ght Upper Arm] Pulse Oximetry 95 Oxygen Delivery Me thod Course Course ED Course: Patient remained stable in the ER. No further episodes of dizziness or any other symptoms. Delta troponins were negative. Reevaluation(s) Reevaluation #1: After completing ACS rule out discussed with his primary care provider, Dr. Crain. Dr. Crain will be able to facilitate getting the a outpatient Zio patch quality assurance monitor body for ongoing workup. Vital Signs Vital signs: Initial Vital Signs Pulse Rate 64 02/03/24 10:01 Respiratory Rate 12 02/03/24 10:01 Blood Pressure 118/73 02/03/24 10:01 Blood Pressure Mean 88 02/03/24 10:01 Pulse Oximetry 97 02/03/24 10:01 Vital Signs Pulse Rate 64 02/03/24 10:01 Respiratory Rate 12 02/03/24 10:01 Blood Pressure 118/73 02/03/24 10:01 Pulse Oximetry 97 02/03/24 10:01 Temperature 97.6 F 02/03/24 10:03 Pulse Rate 58 L 02/03/24 14:45 Respiratory Rate 18 02/03/24 10:03 Blood Pressure 139/84 02/03/24 13:36 Pulse Oximetry 95 02/03/24 14:45 Oxygen Delivery Method Room Air 02/03/24 10:03 Medications Administered Medications: Discontinued Medications Generic Name Dose Route Start Last Admin Trade Name Freq PRN Reason Stop Dose Admin Sodium Chloride 500 mls @ 500 mls/hr 02/03/24 10:57 02/03/24 14:17 0.9 % Sodium Chloride 500 Ml IV 02/03/24 11:56 Infused .Q1H ONE Infusion Medical Decision Making MDM Narrative Medical decision making narrative: This patient presents for evaluation of a an episode of dizziness that occurred this morning as well as as another episode of dizziness that occurred 2 days ago on Thursday. He was initially uncertain about his need to come to the ER and apologetic. I feel that his symptoms do require emergency room workup and concern here is for possible ACS or cardiac arrhythmia among others. He did not lose consciousness but these episodes were near syncopal. A broad differential was considered. Patient does have a known heart murmur but recent echocardiogram did not show severe aortic stenosis or other critical valvular disease.. Initial ECG shows normal sinus rhythm and no dysrhythmogenic abnormality such as WPW, prolonged QT, Brugada syndrome, and no ischemia. We did do EKG and serial troponins here in the ER which show no sign of ACS. He does have a history of AFib and underwent cardioversion for that about 8 months ago or so. He his in sinus rhythm on his EKG and monitor now. However I wonder if he may have had runs of AFib at home. Will arrange outpatient Zio patch Holter monitor through his primary care. No headache or other neurologic symptoms to suggest subarachnoid , stroke . INR is 1.1 which would be consistent with current use of Eliquis. No reported seizure-like activity or postictal phase. No focal deficits to suggest stroke. quality assurance monitor body while the patient here in the ER showed no dysrhythmia or ectopy. A broad differential diagnosis was considered including SVT, ventricular arrhythmia, thyroid disease, acute electrolyte abnormality, drugs/medications, medication side effect, anemia, heart disease, PE, among others. The workup and exam here in ED shows low risk for dangerous cause of the patient's syncope, and no risks factors to warrant admission. Clinical judgement suggests that supportive outpatient management is indicated. Recommend follow up with his primary care provider next week for recheck. Discussed the uncertainty with the patient and precautions for return to the ER reviewed. He is agreeable to plan and eager for discharge. Questions answered and return precautions given Lab Data Labs: Lab Results 02/03/24 02/03/24 02/03/24 Range/Units 10:57 11:00 13:49 WBC 3.49 L (4.50-11.00) K/uL RBC 3.72 L (4.30-5.90) m/uL Hgb 12.6 L (13.5-17.5) gm/dL Hct 37.6 (37.0-53.0) % MCV 101 H (80-100) fL MCH 34 (26-34) pg MCHC 34 (32-36) gm/dL RDW Coeff of Jacinto 12.7 (11.5-15.5) % Plt Count 158 (140-440) K/uL Neut % (Auto) 64.0 (42.0-72.0) % Lymph % (Auto) 18.6 L (20-44) % [place] % (Auto) 12.6 H (0.0-11.0) % Eos % (Auto) 3.4 (0.0-7.0) % Baso % (Auto) 1.4 (0.0-3.0) % Neut # (Auto) 2.20 (1.7-7.0) K/uL Lymph # (Auto) 0.60 L (0.90-2.90) K/uL [place] # (Auto) 0.40 (0.00-0.90) K/UL Eos # (Auto) 0.10 (0.00-0.50) K/uL Baso # (Auto) 0.00 (0.00-0.30) K/uL Abs Immat Gran (auto) 0.00 (0.00-0.30) K/uL Imm/Tot Granulo (auto) 0.0 % INR 1.15 H (0.91-1.10) Sodium 137 (135-149) mmol/L Potassium 5.0 (3.6-5.1) mmol/L Chloride 105 (96-114) mmol/L Carbon Dioxide 28 (20-32) mmol/L Anion Gap 4 L (7-15) mEq/L BUN 24 (7-30) mg/dL Creatinine 1.4 (0.5-1.5) mg/dL Estimated Creat Clear 48.56 Estimated GFR 52 ml/min Glucose 96 (60-115) mg/dL Calcium 9.0 (8.4-10.6) mg/dL TSH 2.940 (0.270-4.200) uIU/mL Ethyl Alcohol < 0.01 L (0.01-0.03) % POC Troponin I 0.00 L 0.00 L (0.01-0.04) ng/ml ECG Data Attestation: I personally reviewed and interpreted this ECG as follows: Interpretation: Normal sinus rhythm Rate: 66 ND: 188 QRS axis: Normal axis. ST segment/T wave: No ST segment elevation or depression. QTc: 423 Compared to EKG from 04/29/2023, sinus rhythm has replaced AFib. No new ST changes. Discharge Plan Discharge Clinical Impression: Dizziness Patient Disposition: Home, Self-Care Condition: Stable Instructions: Lightheadedness (ED), Dizziness (ED) Additional Instructions: As we discussed, the cause of your dizzy spells is not clear at this time. Please wear the heart monitor to monitor for runs of AFib in follow-up with Dr. Crain next week for a recheck. However, if you have any worsening symptoms such as more episodes of dizziness, any episodes of fainting, any chest pain or trouble breathing, fever, or any other concerns, return to the ER immediately. Continue on your regular medications for now. Prescriptions: No Action Eliquis 5 mg tablet 5 mg PO BID metoprolol succinate 25 mg tablet extended release 24 hr 25 mg PO QDAY folic acid 1 mg tablet 1 mg PO .prn alprazolam 1 mg tablet 1 mg PO DAILY PRN (Reason: anxiety) Qty: 60 0RF Follow Up/Referrals: Stephon Crain MD [Primary Care Provider] - Stand Alone Forms: [email or web address] Info Instructions
--- NOTE | 2024-02-03 10:57 | CRLHL7_ITS ---
For Patients: As a result of the Century Cures Act, medical imaging exams and procedure reports are released immediately into your electronic medical record. You may view this report before your referring provider. If you have questions, please contact your health care provider. INDICATION: Dizziness. TECHNIQUE: Chest 2 views. COMPARISON: None. FINDINGS: Cardiovascular and mediastinum: Heart size and vasculature are normal in caliber and appearance. Lungs and pleural spaces: Lungs are clear. No sign of infiltrate or mass. No sign of pleural effusion. No pneumothorax. Bones and soft tissues: No significant findings. IMPRESSION: No acute or significant findings. Dictated by Osiel Small MD @ 02/03/2024 12:08:30 PM (Electronically Signed)
[2024-02-03 11:09] LABS: Basophils Percent Auto 1.4 % (0.0-3.0); Eosinophils Percent Auto 3.4 % (0.0-7.0); Hematocrit 37.6 % (37.0-53.0); Hemoglobin* 12.6 gm/dL (13.5-17.5); Lymphocytes Percent Auto 18.6 % (20-44); Mean Corpuscular HGB Conc 34 gm/dL (32-36); Mean Corpuscular Hemoglobin 34 pg (26-34); Mean Corpuscular Volume 101 fL (80-100); Monocytes Percent Auto 12.6 % (0.0-11.0); Platelet Count* 158 K/uL (140-440); RDW Coefficient of Variation % 12.7 % (11.5-15.5); Red Blood Count 3.72 m/uL (4.30-5.90); White Blood Count* 3.49 K/uL (4.50-11.00)
--- OUTSIDE RECORDS SUMMARY | 2024-02-03 11:14 | XMS_ITS | Encounter Summary ---
Author Name [facility] [place] [facility] [place] Address [address] [place] [address] Care Team Providers Care It Sales Consultant Name Role Phone PING VARGAS Primary Care Provider Louisa segundo Insurance Providers: All historical and current Section [...] Name Patient's Relationship to Policy Galvan [employer] [facility] (WNR) MEDICARE ADVANTAGE [facility] (WN) Aug 03, 2017 [id number] LUCAS THRASHER PATIENT MEDICARE (WNR) MEDICARE (M) PART B May 03, 2013 PART B [id number] [phone] LUCAS THRASHER PATIENT MEDICARE (WNR) MEDICARE (M) PART A May 03, 2013 PART A [id number] [phone] LUCAS THRASHER PATIENT Selected Encounter This section includes the information on record at [place] for the Encounter. Date/Time Encounter Type Encounter Description Reason Pro vider Source Oct 06, 2023 12:00 PM Outpatient Encounter CARDIAC CATHETERIZATION IHE Encounter Template Text not used by [place] [...] 20 appointments. The data comes from all [place] treatment facilities. Appointment Date/Time Appointment Type Appointme nt Facility Name Nov 09, 2023 01:00 PM AMB[facility]ORY - NONE [facility] [facility] Nov 09, 2023 01:30 PM [facility] [place]IC[place] [facility] December 02, 2023 10:00 AM AMBULATORY - NONE [facility] December 02, 2023 10:15 AM [facility] - MEDICINE [place] [facility] December 11, 2023 11:00 AM AMBULATORY - MEDICINE [facility] Lab Results: +/- 30 days of the encounter This section includes the Chemistry and Hematology Lab Results on record with [place] for the patient. Radiology Reports and Pathology Reports are provided separately, in subsequent sections. Lab Results This section contains the Chemistry/Hematology Results that were resulted 30 days before or 30 daysafter the date of the Encounter. Date/Time Source Result Type Result - Unit Interpretation Reference Range Comment Oct 06, 2023 08:42 AM [facility] ELECTROLYTES/ANION GAP Specimen Type: PLASMA No comment entered. Ordering Provider: YOAV CERDA Report Released Date/Time: Sep 29, 2023 12:43 PM Reporting Lab: [facility] [phone] Performing Lab: [facility] [phone] SODIUM 139 mmol/L 136-145 POTASSIUM 5.1 mmol/L 3.5-5.1 CHLORIDE 104 mmol/L 98-107 CO2 26 mmol/L 22-29 ANION GAP 9 mmol/L 5-15 Oct 06, 2023 08:42 AM [facility] UREA NITROGEN Specimen Type: PLASMA No comment entered. Ordering Provider: YOAV CERDA Report Released Date/Time: Sep 29, 2023 12:43 PM Reporting Lab: [facility] [phone] Performing Lab: [facility] [phone] UREA NITROGEN 25 mg/dL 8-26 Oct 06, 2023 08:42 AM [facility] CBC Specimen Type: BLOOD No comment entered. Ordering Provider: YOAV CERDA Report Released Date/Time: Sep 29, 2023 12:43 PM Reporting Lab: [facility] [phone] Performing Lab: [facility] [phone] WBC 4.04 10*3/uL 4.0-11.0 RBC 4.65 10*6/uL 4.6-6.2 HGB 15.4 g/dL 13.5-17.9 HCT 45.1 41-54 MCV 97.0 fL 80-100 MCH 33.1 pg H 27-33 MCHC 34.1 g/dL 32.0-37.5 PLT 164 10*3/uL 150-400 MPV 8.5 fL 7.4-10.4 RDW 13.2 11.5-14.5 Oct 06, 2023 08:42 AM [facility] PROTHROMBIN TIME/INR Specimen Type: PLASMA No comment entered. Ordering Provider: YOAV CERDA Report Released Date/Time: Sep 29, 2023 12:43 PM Reporting Lab: [facility] [id number] Performing Lab: [facility] [phone] .INR 1.3 H 0.8-1.1 .PT 14.7 s H 9.4-12.5 Oct 06, 2023 08:42 AM [facility] CREATININE(INCLUDES EGFR) Specimen Type: PLASMA No comment entered. Ordering Provider: YOAV CERDA Report Released Date/Time: Sep 29, 2023 12:43 PM Reporting Lab: [facility] [phone] Performing Lab: [facility] [phone] CREATININE 1.6 mg/dL H 0.7-1.2 .CREAT EGFR(CKD-EPI) 45 L >60 Oct 06, 2023 08:42 AM [facility] MAGNESIUM Specimen Type: PLASMA No comment entered. Ordering Provider: YOAV CERDA Report Released Date/Time: Sep 29, 2023 12:43 PM Reporting Lab: [facility] [phone] Performing Lab: [facility] [phone] MAGNESIUM 1.8 mg/dL 1.6-2.6 Oct 06, 2023 08:42 AM [facility] CALCIUM Specimen Type: PLASMA No comment entered. Ordering Provider: YOAV CERDA Report Released Date/Time: Sep 29, 2023 12:43 PM Reporting Lab: [facility] [phone] Performing Lab: [facility] [phone] CALCIUM 10.1 mg/dL 8.4-10.2 Oct 06, 2023 08:42 AM [facility] ACT PART THROMBO TIME Specimen Type: PLASMA No comment entered. Ordering Provider: YOAV CERDA Report Released Date/Time: Sep 29, 2023 12:43 PM Reporting Lab: [facility] [phone] Performing Lab: [facility] [phone] APTT 33.9 s 25.1-36.5 Vital Signs: All taken on the encounter date This section contains inpatient and outpatient Vital Signs collected on the date of the Encounter. Date/Time Temperature Pulse Blood Pressure Respiratory Rate SP02 Pain Height Weight Body Mass Index Source Oct 06, 2023 09:29 AM 72 194.3 26 [facility] Oct 06, 2023 09:21 AM 98.0 101 130/93 14 99 0 [facility] Encounter Notes: All associated encounter notes This section contains the clinical notes associated to the Encounter. Date/Time Encounter Note(s) Provider Source Oct 06, 2023 03:20 PM ANESTHESIOLOGY NOT E: LOCAL TITLE: ANESTHESIA POST-ANESTHESIA EVALUATION STANDARD TITLE: ANESTHESIOLOGY NOTE DATE OF NOTE: OCT 06, 2023@15:20 ENTRY DATE: OCT 06, 2023@15:20:43 AUTHOR: ELIAS LR EXP COSIGNER: URGENCY: STATUS: COMPLETED POST-ANESTHESIA EVALUATION PACU PATIENT MET DISCHARGE CRITERIA Abilio score of > or = 8 ANESTHESIA TYPE General VITAL SIGNS Vital signs stable HR: 101 (10/06/2023 09:21) BP: 130/93 (10/06/2023 09:21) RR: 14 (10/06/2023 09:21) O2: 99% (10/06/2023 09:21) TP: 98.0 F [36.7 C] (10/06/2023 09:21) NORMAL PHYSIOLOGIC SYSTEMS ASSESSMENT Neuro/Mental Health: appropriate mentation or preoperative baseline Airway/Respiratory: normal respiratory status Cardiovascular: appropriate blood pressure, heart rate and rhythm Pain: comfortable, well controlled Postop nausea/vomiting: none STATUS AT SIGNOUT stable DISPOSITION home // ELIAS LR MD CHIEF, ANESTHESIOLOGY Signed: 10/06/2023 15:21 ELIAS LR [facility] Oct 06, 2023 03:18 PM ANESTHESIOLOGY NOT E: LOCAL TITLE: ANESTHESIA PRE-EVALUATION NOTE STANDARD TITLE: ANESTHESIOLOGY NOTE DATE OF NOTE: OCT 06, 2023@15:18 ENTRY DATE: OCT 06, 2023@15:18:44 AUTHOR: ELIAS LR EXP COSIGNER: URGENCY: STATUS: COMPLETED Pre-Anesthesia Evaluation AAKASH THRASHER identified by name and . 73 year old MALE. MEDICAL HISTORY: Active problems - Computerized Problem List is the source for the followin. Benign prostatic hyperplasia (SNOMED CT 592819709) 2. Polyp of colon (SNOMED CT 43651599) 3. Hypertension (SNOMED CT 24623602) 4. Cataract nos 5. Hydrocele of testis 6. Erectile dysfunction (SNOMED CT 965655583) 7. Impaired fasting glucose 8. Hyperlipidemia 9. Obesity 10. Aortic valve stenosis - mild per 07/2020 echo 11. 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 AF-Atrial Fibrillation (SCT 83265936) 14. Long-Term Current Use of Anticoagulant (SCT 131798612) SURGICAL HISTORY (WITH ANESTHESIA DETAILS AVAILABLE): OCT 06, 2023 Proc: [facility] ALLERGIES: DOXAZOSIN (May 14, 2011) MEDICATIONS: Active and Recently Outpatient Medications (excluding Supplies): Active Outpatient Medications Status 1) APIXABAN 5MG TAB TAKE ONE TABLET BY MOUTH EVERY 12 ACTIVE HOURS TO PREVENT STROKES (REPLACES WARFARIN) 2) DRONEDARONE 400MG TAB TAKE ONE TABLET BY MOUTH TWICE ACTIVE A DAY FOR ATRIAL FIBRILLATION Pending Outpatient Medications Status 1) METOPROLOL SUCCINATE 25MG SA TAB TAKE ONE TABLET BY PENDING MOUTH EVERY DAY Active Non-VA Medications Status 1) Non-VA ALPRAZOLAM TAB 0.5MG IF NEEDED FOR ANXIETY ACTIVE 2) Non-VA CYANOCOBALAMIN 1000MCG TAB 1000MCG MOUTH EVERY ACTIVE DAY 3) Non-VA FOLIC ACID 1MG TAB 1MG MOUTH EVERY DAY ACTIVE 4) Non-VA MULTIVITAMIN CAP/TAB 1 TABLET MOUTH EVERY DAY ACTIVE 7 Total Medications Active Inpatient Medications (including Supplies): No Medications Found MEDICATIONS TAKEN TODAY: BCMA MEDS GIVEN TODAY - NONE FOUND Chronic Opioid Use: No Naltrexone Use: No Buprenorphine Use: No SOCIAL HISTORY: Tobacco Use: No, Alcohol Use: No, Substance Use: No, REVIEW OF SYSTEMS: METS: 1 to 2 Cardiac: denies Respiratory: denies Neurologic: denies GERD: not active PTSD: No Prior History of Anesthesia Complications: No PHYSICAL EXAM: Weight: 194.3 lb [88.13 kg] (10/06/2023 09:29) Height: 72 in [182.9 cm] (10/06/2023 09:29) BMI: 26.4 Blood Pressure: 130/93 (10/06/2023 09:21) Pulse: 101 (10/06/2023 09:21) Pulse Oximetry: 99% (10/06/2023 09:21) Respiration: 14 (10/06/2023 09:21) Temperature: 98.0 F [36.7 C] (10/06/2023 09:21) Mallampati: III Mouth Opening: >3cm Thyromental: > 4cm Neck: limited range of motion Dentition: normal Cardiac: *irregular Murmur No Pulmonary: Bilaterally clear Neurologic: Alert, Awake LABS SODIUM 139 (10/06/23) POTASSIUM 5.1 (10/06/23) CHLORIDE 104 (10/06/23) CO2 26 (10/06/23) GLUCOSE 106 H (06/05/23) UREA NITROGEN 25 (10/06/23) CREATININE 1.6 H (10/06/23) EGFR (03/06) 06/05/21 @ 1048 50 L CREATININE EGFR (CKD-EPI) 10/06/23 @ 0842 45 L WBC 4.04 (10/06/23) HGB 15.4 (10/06/23) HCT 45.1 (10/06/23) PLT 164 (10/06/23) PT 14.7 H (10/06/23) INR 1.3 H (10/06/23) SGOT 19 (06/05/23) SGPT 21 (06/05/23) Collection DT Specimen Test Name Result Units Ref Range 08/20/2010 11:06 BLOOD POC HGB A1C 5.7 % 4.0 - 6.0 TODAY'S LAB RESULTS NEW APTT: 33.9 INR 1998: 1.3 H PROTHROMBIN TIME (04/06): 14.7 H UREA NITROGEN: 25 CREATININE: 1.6 H SODIUM: 139 POTASSIUM: 5.1 CHLORIDE: 104 CO2: 26 CALCIUM: 10.1 MAGNESIUM: 1.8 ANION GAP: 9 CREATININE EGFR (CKD-EPI): 45 L WBC: 4.04 RBC: 4.65 HGB: 15.4 HCT: 45.1 MCV: 97.0 MCH: 33.1 H MCHC: 34.1 RDW: 13.2 PLT: 164 MPV: 8.5 Stress Test SII - Maude Image Impression No data available for: CARDIOVASCULAR STRESS TEST Coronary Angiogram Selected Progress Notes No data available for: CARDIAC CATHETERIZATION CART PROCEDURE NOTE CT Angiogram No data available Pacemaker Note Chest Xray No Impressions found CT Chest No Reports found CT Head No data available PFT NO PULMONARY FUNCTION TESTS ON FILE Carotid Ultrasound US EXTRACRANIAL ARTERIES NON-INVAS/PHYSIOLOGIC/FABIÁN - NONE FOUND - 1Y ASA STATUS: 3 Patient's preoperative assessment reviewed. There are no significant changes, new conditions, or additions from the patient's anesthesia preoperative assessment. NPO STATUS: Meets ASA guidelines (>2 hrs clear liquids, >6 hrs light meal, >8 hrs heavy meal) ANESTHESIA PLAN: General propofol Multimodal: ERAS PATHWAY: No BLOOD PRODUCT CONSENT: N/A INSULIN PROTOCOL: N/A The anesthetic plan including the risks, benefits, side effects and alternative options of the plan were discussed with the patient/responsible security systems sales representative. The patient/security systems sales representative has been encouraged to ask questions and any concerns have been addressed. The patient/security systems sales representative endorses understanding of the information disclosed. The patient/security systems sales representative voluntarily elects to move forward with the anesthetic plan. Phase I PACU Full code. No data available for: LIFE-SUSTAINING TREATMENT Life Sustaining Treatment Orders /es/ ELIAS LR MD CHIEF, ANESTHESIOLOGY Signed: 10/06/2023 15:20 ELIAS LR [facility]
--- OUTSIDE RECORDS SUMMARY | 2024-02-03 11:14 | XMS_ITS | Encounter Summary ---
Author Name [facility] [place] Address [address] [place] [address] Care Team Providers Care Credit Portfolio Manager Name Role Phone PING VARGAS Primary Care [...] Name Patient's Relationship to Policy Galvan [employer]MANA [facility] (WNR) MEDICARE ADVANTAGE [facility] (R) Aug 03, 2017 [id number] LUCAS THRASHER EN PATIENT MEDICARE (WNR) MEDICARE (M) PART B May 03, 2013 PART B [id number] LUCAS THRASHER EN PATIENT MEDICARE (WNR) MEDICARE (M) PART A May 03, 2013 PART A [id number] [phone] LUCAS THRASHER PATIENT Selected Encounter This section includes the information on record at [place] for the Encounter. Date/Time Encounter Type Encounter Description Reason Provider Source Sep 23, 2023 11:00 AM OFF/OP CONSLTJ NEW/EST HI 55 CARDIOLOGY ICD-10-CM I48.91 Unspecified atrial fibrillation YOAV CERDA Encounter Template Text not used by [place] Assessments - Encounter Diagnoses This section includes the primary and secondary diagnoses documented for the Encounter. Date/Time Primary/Secondary Diagnosis Diagnosis Name Provider Source Sep 23, 2023 03:37 PM PRIMARY Unspecified atrial fibrillation YOAV CERDA [facility] Plan of Treatment: Future Appointments (+ 6 months) and Future Tests (+/- 45 days) The Plan of Treatment section includes future care activities for the patient from all [place] treatmentfacilities. This section includes future appointments and future orders which are active, pending or scheduled. Future Appointments This section includes appointments that were scheduled to occur 6 months from the date of the Encounter, up to a maximum of 20 appointments. The data comes from all [place] treatment facilities. Appointment Date/Time Appointment Type Appointme nt Facility Name Oct 06, 2023 09:00 AM AMBULATORY - NONE [facility] Oct 06, 2023 09:30 AM AMBULATORY - MEDICINE [facility] Oct 06, 2023 10:00 AM AMBULATORY - SURGERY [facility] Oct 06, 2023 11:00 AM AMBULATORY - MEDICINE [facility] Oct 06, 2023 12:00 PM AMBULATORY - MEDICINE [facility] Nov 09, 2023 01:00 PM [facility] Nov 09, 2023 01:30 PM AMBULATORY - MEDICINE [facility] December 02, 2023 10:00 AM AMBULATORY - NONE [facility] ([facility]) December 02, 2023 10:15 AM [facility]ATORY - MEDICINE [facility] ([facility]) December 11, 2023 11:00 AM AMBULATORY - MEDICINE [facility] Lab Results: +/- 30 days of the encounter This section includes the Chemistry and Hematology Lab Results on record with [place] for the patient. Radiology Reports and Pathology Reports are provided separately, in subsequent sections. Lab Results This section contains the Chemistry/Hematology Results that were resulted 30 days before or 30 daysafter the date of the Encounter. Date/Time Source Result Type Result - Unit Interpretation Reference Range Comment Oct 06, 2023 08:42 AM [facility] UREA NITROGEN Specimen Type: PLASMA No comment entered. Ordering Provider: YOAV CERDA Report Released Date/Time: Sep 29, 2023 12:43 PM Reporting Lab: [facility] [phone] Performing Lab: [facility] [phone] UREA NITROGEN 25 mg/dL 8-26 Oct 06, 2023 08:42 AM [facility] ELECTROLYTES/ANION GAP Specimen Type: PLASMA No comment entered. Ordering Provider: YOAV CERDA Report Released Date/Time: Sep 29, 2023 12:43 PM Reporting Lab: [facility] [phone] Performing Lab: [facility] [phone] SODIUM 139 mmol/L 136-145 POTASSIUM 5.1 mmol/L 3.5-5.1 CHLORIDE 104 mmol/L 98-107 CO2 26 mmol/L 22-29 ANION GAP 9 mmol/L 5-15 Oct 06, 2023 08:42 AM [facility] CBC Specimen Type: BLOOD No comment entered. Ordering Provider: YOAV CERDA Report Released Date/Time: Sep 29, 2023 12:43 PM Reporting Lab: [facility] [phone] Performing Lab: [facility] [phone] WBC 4.04 10*3/uL 4.0-11.0 RBC 4.65 10*6/uL 4.6-6.2 HGB 15.4 g/dL 13.5-17.9 HCT 45.1 41-54 MCV 97.0 fL 80-100 MCH 33.1 pg H 27-33 MCHC 34.1 g/dL 32.0-37.5 PLT 164 10*3/uL 150-400 MPV 8.5 fL 7.4-10.4 RDW 13.2 11.5-14.5 Oct 06, 2023 08:42 AM [facility] PROTHROMBIN TIME/INR Specimen Type: PLASMA No comment entered. Ordering Provider: YOAV CERDA Report Released Date/Time: Sep 29, 2023 12:43 PM Reporting Lab: [facility] [address] Performing Lab: [facility] [address] .INR 1.3 H 0.8-1.1 .PT 14.7 s H 9.4-12.5 Oct 06, 2023 08:42 AM [facility] CREATININE(INCLUDES EGFR) Specimen Type: PLASMA No comment entered. Ordering Provider: YOAV CERDA Report Released Date/Time: Sep 29, 2023 12:43 PM Reporting Lab: [facility] [phone] Performing Lab: [facility] [address] CREATININE 1.6 mg/dL H 0.7-1.2 .CREAT EGFR(CKD-EPI) 45 L >60 Oct 06, 2023 08:42 AM [facility] MAGNESIUM Specimen Type: PLASMA No comment entered. Ordering Provider: YOAV CERDA Report Released Date/Time: Sep 29, 2023 12:43 PM Reporting Lab: [facility] [address] Performing Lab: [facility] [address] MAGNESIUM 1.8 mg/dL 1.6-2.6 Oct 06, 2023 08:42 AM [facility] CALCIUM Specimen Type: PLASMA No comment entered. Ordering Provider: YOAV CERDA Report Released Date/Time: Sep 29, 2023 12:43 PM Reporting Lab: [facility] [address] Performing Lab: [facility] [address] CALCIUM 10.1 mg/dL 8.4-10.2 Oct 06, 2023 08:42 AM [facility] ACT PART THROMBO TIME Specimen Type: PLASMA No comment entered. Ordering Provider: YOAV CERDA Report Released Date/Time: Sep 29, 2023 12:43 PM Reporting Lab: [facility] [address] Performing Lab: [facility] [address] APTT 33.9 s 25.1-36.5 Vital Signs: All taken on the encounter date This section contains inpatient and outpatient Vital Signs collected on the date of the Encounter. Date/Time Temperature Pulse Blood Pressure Respiratory Rate SP02 Pain Height Weight Body Mass Index Source Sep 23, 2023 10:27 AM 144/102 [facility] Sep 23, 2023 10:24 AM 97.1 97 156/105 18 97 202.5 28 [facility] Encounter Notes: All associated encounter notes This section contains the clinical notes associated to the Encounter. Date/Time Encounter Note(s) Provider Source Sep 23, 2023 10:37 AM CARDIOLOGY DIAGNOS TIC STUDY CONSULT: LOCAL TITLE: CARDIAC ELECTROPHYSIOLOGY CONSULT STANDARD TITLE: CARDIOLOGY DIAGNOSTIC STUDY CONSULT DATE OF NOTE: SEP 23, 2023@10:37 ENTRY DATE: SEP 23, 2023@10:37:46 AUTHOR: YOAV CERDA COSIGNER: URGENCY: STATUS: COMPLETED CARDIAC ELECTROPHYSIOLOGY CONSULT Has ADDENDA CARDIAC ELECTROPHYSIOLOGY CLINIC CONSULT NOTE Requesting Provider: DAVID NORRIS Reason for Request: atrial fibrillation for consideration of cardioversion HPI: Patient is a 73 year-old male who presents to clinic today for EP consultation for persistent atrial fibrillation. 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 He was diagnosed with atrial fibrillation this past fall in April 2023. He was at a routine eye doctor appointment and they checked his BP and was told his heart rate was in the 110s. He asked his daughter, who is a nurse, about it and she recommended he contact the [place]. He was instructed to present to a local ED and was seen at [facility] 04/29/23 where he was started on anticoagulation and metoprolol for rate control. He was referred by [facility] (comanaged with non-VA PCP as well) to cardiology and was seen in general cardiology clinic on 07/01/23. General cardiology recommended increasing metoprolol from 25 mg bid to 50 mg bid, given mild RVR in clinic (up to 110s) and f/u echo in 1-2 years to monitor aortic stenosis. EP was consulted for consideration of rhythm control, given some symptoms likely r/t AFib. He presents to EP clinic today unaccompanied for AFib consultation. He reports the last couple of months he feels he runs out of gas so much easier. 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 He gets tired and winded so much easier than he used to. He does endorse occasional heart fluttering sensation. He denies current chest pain/pressure, lightheadedness, dizziness, presyncope, syncope, orthopnea, PND, or LE edema. ROS: 12 point review of systems negative for acute issues except as noted in HPI. PAST MEDICAL HISTORY Active problems - Computerized Problem List is the source for the followin. Benign prostatic hyperplasia (SNOMED CT 195383052) 2. Polyp of colon (SNOMED CT 48236721) 3. Hypertension (SNOMED CT 00003577) 4. Cataract nos 5. Hydrocele of testis 6. Erectile dysfunction (SNOMED CT 271009791) 7. Impaired fasting glucose 8. Hyperlipidemia 9. Obesity 10. Aortic valve stenosis - mild per 07/2020 echo 11. 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 AF-Atrial Fibrillation (SCT 37710575) 14. Long-Term Current Use of Anticoagulant ([facility] 178724388) PAST SOCIAL HISTORY: *Tobacco: denies, quit over 30 years ago *ETOH: drinking 3-4 per day, once in awhile more *Illicits: smoking marijuana daily *Lives with , in 80 FAMILY HISTORY: Denies family history of premature CAD, sudden unexplained or any significant relevant cardiac conditions. -----PRIOR CARDIAC TESTING----- -- Transthoracic echocardiogram (08/28/23): Final Impressions: 1. Normal left ventricular size, mildly increased wall thickness, normal global systolic function, calculated EF of 59 %. 2. Right ventricular cavity size is normal, global systolic RV function is normal. 3. Normal left atrium size. 4. The aortic valve is calcified and presence of LVOT calcification, moderate stenosis and trivial regurgitation. The aortic valve peak velocity is 3.0 m/s, the peak gradient is 36 mmHg, and the mean gradient is 14 mmHg. The aortic valve area is 1.08 cm?? with a dimensionless index of 0.29. The stroke volume index is 25.4 ml/m??. 5. The mitral valve is tethered, moderate mitral regurgitation. 6. Tricuspid valve is tethered. 7. Moderate-severe tricuspid regurgitation. 8. The ascending aorta is dilated with a maximal diameter of 4.2 cm. 9. Mildly increased estimated pulmonary pressures by tricuspid regurgitation velocity and right atrial pressure (31 mmHg plus RAP). 10. The aortic sinus is dilated with a maximal diameter of 4.0 cm. 11. No pericardial effusion. Normal left ventricular size, mildly increased wall thickness, normal global systolic function, calculated EF of 59 %. Left atrial size is normal. Right ventricular cavity size is normal, global systolic RV function is normal. RV wall thickness is normal. The right atrium is severely enlarged. Right atrial volume index is 50 ml/m??. Right atrial area is 30 cm??. The pulmonary artery is of normal size and origin. The sinus of Valsalva is dilated. The ascending aorta is dilated. -- Stress Echocardiogram (03/2022) - [facility]: 1. Maximum stress test with 96.5% of [...] cm2 with a dimensionless index of 0.39. -- Latest EKG (09/23/23): Atrial fibrillation 106 bpm --- ALLERGIES DOXAZOSIN (May 14, 2011) FACILITY ALLERGY/ADR -------- No Remote Allergy/ADR Data available for this patient [facility] DOXAZOSIN MEDICATIONS Active and Recently Outpatient Medications (excluding Supplies): Active Outpatient Medications Status 1) APIXABAN 5MG TAB TAKE ONE TABLET BY MOUTH EVERY 12 ACTIVE HOURS TO PREVENT STROKES (REPLACES WARFARIN) Active Non-VA Medications Status 1) Non-VA ALPRAZOLAM TAB 0.5MG IF NEEDED FOR ANXIETY ACTIVE 2) Non-VA CYANOCOBALAMIN 1000MCG TAB 1000MCG MOUTH EVERY ACTIVE DAY 3) Non-VA FOLIC ACID 1MG TAB 1MG MOUTH EVERY DAY ACTIVE 4) Non-VA METOPROLOL SUCCINATE 50MG SA TAB 50MG MOUTH ACTIVE TWICE A DAY 5) Non-VA MULTIVITAMIN CAP/TAB 1 TABLET MOUTH EVERY DAY ACTIVE 6 Total Medications No Active Remote Medications for this patient LABS SODIUM 141 (07/01/23) POTASSIUM 4.5 (07/01/23) MAGNESIUM 1.9 (06/05/23) UREA NITROGEN 20 (07/01/23) CREATININE 1.3 H (07/01/23) GLUCOSE 106 H (06/05/23) Collection DT Specimen Test Name Result Units Ref Range 06/05/2023 10:54 PLASMA TSH 4.34 uIU/mL 0.35 - 4.94 11/22/2021 09:59 PLASMA TSH 3.65 uIU/mL 0.35 - 4.94 Collection DT Specimen Test Name Result Units Ref Range 06/05/2023 10:54 PLASMA BILIRUBIN, TOTAL 0.5 mg/dL 0.2 - 1.2 06/05/2023 10:54 PLASMA ALKALINE PHOSPHAT 60 U/L 40 - 150 06/05/2023 10:54 PLASMA AST/SGOT 19 U/L Ref: <=34 06/05/2023 10:54 PLASMA ALT/SGPT 21 U/L Ref: <=55 VITALS Temperature: 97.1 F [36.2 C] (09/23/2023 10:24) Blood Pressure: 144/102 (09/23/2023 10:27) Pulse: 97 (09/23/2023 10:24) Respiration: 18 (09/23/2023 10:24) Pain: 0 (06/05/2023 09:52) Pulse Oximetry: 97% (09/23/2023 10:24) EXAM GA: Very pleasant, well-appearing, NAD; HEENT: Normocephalic, atraumatic without visible masses, depressions, or scarring. Sclera is non-icteric. EOM are intact, PERRLA. No signs of nystagmus. Eyelids are normal in appearance without swelling or lesions. LUNGS: CTAB, no crackles, wheezes, or rhonchi CV: Irreg irreg; no murmurs, rubs, or gallops; no JVD GI: BS (+); soft, nontender EXT: No cyanosis, clubbing, or edema. NEURO: AOx4; no focal deficits; normal gait PSYCH: Appropriate mood and affect. Good judgement and insight. SKIN: Warm, dry, intact without rashes or lesions. ASSESSMENT/PLAN: 1. Persistent atrial fibrillation: Dx 04/2023, incidental finding during eye appt of tachycardia and presented to [facility]. Has been symptomatic for a couple months -- We had a long discussion about the pathophysiology of atrial fibrillation and rate vs rhythm control options. We discussed rhythm control options in detail, including cardioversion, antiarrhythmic drugs and ablation -- He prefers to go with least invasive option to begin with and would like to pursue cardioversion BRUCE, agreeable to adding dronedarone prior but the other antiarrhythmics side effect profile make him nervous. Latest TTE with preserved LV function, normal LA size. -- He would like to consider ablation down the road potentially. Handout given for AFib management options to review -- Heart rate still mildly elevated - he reports taking 3x25 mg tablets metoprolol succinate daily - will increase to 50 mg bid -- CHADSVasc score is 3 (age++, HTN) on apixaban with no bleeding concerns and no missed doses in last 3+ weeks -- We discussed risk factor modification for AFib including weight management, regular exercise, moderation of alcohol intake, control of blood pressure and treatment of any underlying LORI. He is agreeable to sleep study, will order consult 2. Valvular disease - moderate , moderate MR, moderate to severe TR: -- Continue to monitor SUMMARY OF PLAN -- Arrange for cardioversion, with dronedarone initiation prior -- Consider PVI parts counter representative Follow up: Will be arranged after DCCV. Patient was given my contact information and encouraged to contact me if he has questions or concerns that arise in the interim. -----> For EP coordinator: -- Please arrange for DCCV - sending out dronedarone BRUCE please ensure patient starts this 5 days prior -- Hold metoprolol for 2 days prior -- Patient is on apixaban for anticoagulation, can defer ZOLTAN if 3+ weeks uninterrupted anticoagulation -- Patient is not diabetic I spent a total of 60 minutes between preparation, review of testing, discussion with patient and documentation of encounter /coleman/ YOAV CERDA PA-C PHYSICIAN LAB COURIER Signed: 09/23/2023 15:37 Receipt Acknowledged By: 09/24/2023 14:57 /coleman/ ARCENIO COLLAZO RN REGISTERED NURSE 09/23/2023 ADDENDUM STATUS: COMPLETED 3. Elevated BP in clinic: Pt reports home BPs controlled - will bring log with to next appt. /delaney CERDA PA-C PHYSICIAN LAB COURIER Signed: 09/23/2023 15:41 YOAV CERDA [facility] Sep 23, 2023 10:25 AM INTERNAL MEDICINE OUTPATIENT NOTE: LOCAL TITLE: MEDICINE CLINIC NURSING NOTE STANDARD TITLE: INTERNAL MEDICINE OUTPATIENT NOTE DATE OF NOTE: SEP 23, 2023@10:25 ENTRY DATE: SEP 23, 2023@10:25:11 AUTHOR: DARIUS [place] EXP COSIGNER: URGENCY: STATUS: COMPLETED TYPE OF VISIT: Appointment Check In Type of appointment: In-person appointment REASON FOR VISIT: follow up ALLERGIES: DOXAZOSIN (May 14, 2011) VITAL SIGNS: Blood Pressure: 156/105 (09/23/2023 10:24) 144/102 has SOB but reports this is normal for him since he has Afib. Will notify special agent in charge and provider. Pulse: 97 (09/23/2023 10:24) Respiration: 18 (09/23/2023 10:24) Temperature: 97.1 F [36.2 C] (09/23/2023 10:24) Weight: 202.5 lb [91.85 kg] (09/23/2023 10:24) Height: 70.866 in [180.0 cm] (06/05/2023 09:52) BMI: 28.4 O2 Sat: 97% (09/23/2023 10:24) Pain: 0 (06/05/2023 09:52) PAIN SCREEN: Patient is not having significant pain that they wish to discuss with their provider today. MEDICATION Over the Counter/Herbal Medications: The patient denies taking any outside medications or herbals. /es/ DARIUS [place] LPN LPN Signed: 09/23/2023 10:27 Receipt Acknowledged By: 09/24/2023 11:46 /coleman/ DARIUS BLAIR RN STAFF NURSE DARIUS [place] [facility]
--- OUTSIDE RECORDS SUMMARY | 2024-02-03 11:14 | XMS_ITS | Encounter Summary ---
Author Name [place] Address [address] [place] [address] Care Team Providers Care Sanitation Worker Cleaning Equipment Name Role Phone PING VARGAS Primary Care [...] Name Patient's Relationship to Policy Galvan [employer]NA [facility] (WNR) MEDICARE ADVANTAGE [facility] ([facility]) Aug 03, 2017 [id number] LUCAS THRASHER PATIENT MEDICARE (WNR) MEDICARE (M) PART A May 03, 2013 PART A [id number] LUCAS THRASHER PATIENT MEDICARE (WNR) MEDICARE (M) PART B May 03, 2013 PART B [id number] LUCAS THRASHER PATIENT Selected Encounter This section includes the information on record at [place] for the Encounter. Date/Time Encounter Type Encounter Description Reason Provider Source Oct 06, 2023 10:14 AM Outpatient Encounter AMBULATORY [facility] Encounter Template Text not used by [facility] [...] [place] treatment facilities. Appointment Date/Time Appointment Type Appointme nt Facility Name Nov 09, 2023 01:00 PM AMBULATORY - NONE [place] [facility] Nov 09, 2023 01:30 PM [facility] - [facility]IC[facility] December 02, 2023 10:00 AM AMBULATORY - NONE [facility] ([facility] December 02, 2023 10:15 AM AMBULATORY - MEDICINE [facility] ([facility] December 11, 2023 11:00 AM AMBULATORY - MEDICINE [facility] Lab Results: +/- 30 days [...] Range Comment Oct 06, 2023 08:42 AM [facility] UREA NITROGEN Specimen Type: PLASMA No comment entered. Ordering Provider: YOAV CERDA Report Released Date/Time: Sep 29, 2023 12:43 PM Reporting Lab: [facility] [address] Performing Lab: [facility] [address] UREA NITROGEN 25 mg/dL 8-26 Oct 06, 2023 08:42 AM [facility] ELECTROLYTES/ANION GAP Specimen Type: PLASMA No comment entered. Ordering Provider: YOAV CERDA Report Released Date/Time: Sep 29, 2023 12:43 PM Reporting Lab: [facility] [phone] Performing Lab: [facility] [address] SODIUM 139 mmol/L 136-145 POTASSIUM 5.1 mmol/L 3.5-5.1 CHLORIDE 104 mmol/L 98-107 CO2 26 mmol/L 22-29 ANION GAP 9 mmol/L 5-15 Oct 06, 2023 08:42 AM [facility] CBC Specimen Type: BLOOD No comment entered. Ordering Provider: YOAV CERDA Report Released Date/Time: Sep 29, 2023 12:43 PM Reporting Lab: [facility] [address] Performing Lab: [facility] [address] WBC 4.04 10*3/uL 4.0-11.0 RBC 4.65 10*6/uL 4.6-6.2 HGB 15.4 g/dL 13.5-17.9 HCT 45.1 41-54 MCV 97.0 fL 80-100 MCH 33.1 pg H 27-33 MCHC 34.1 g/dL 32.0-37.5 PLT 164 10*3/uL 150-400 MPV 8.5 fL 7.4-10.4 RDW 13.2 11.5-14.5 Oct 06, 2023 08:42 AM [facility] PROTHROMBIN TIME/INR Specimen Type: PLASMA No comment entered. Ordering Provider: YOAV CERDA Report Released Date/Time: Sep 29, 2023 12:43 PM Reporting Lab: [facility] [address] Performing Lab: [facility] [address] .INR 1.3 H 0.8-1.1 .PT 14.7 s H 9.4-12.5 Oct 06, 2023 08:42 AM [facility] CREATININE(INCLUDES EGFR) Specimen Type: PLASMA No comment entered. Ordering Provider: YOAV CERDA Report Released Date/Time: Sep 29, 2023 12:43 PM Reporting Lab: [facility] [address] Performing Lab: [facility] [address] CREATININE 1.6 mg/dL H 0.7-1.2 .CREAT EGFR(CKD-EPI) 45 L >60 Oct 06, 2023 08:42 AM [facility] MAGNESIUM Specimen Type: PLASMA No comment entered. Ordering Provider: YOAV CERDA Report Released Date/Time: Sep 29, 2023 12:43 PM Reporting Lab: [facility] [address] Performing Lab: [facility] [address] MAGNESIUM 1.8 mg/dL 1.6-2.6 Oct 06, 2023 08:42 AM [facility] ACT PART THROMBO TIME Specimen Type: PLASMA No comment entered. Ordering Provider: YOAV CERDA Report Released Date/Time: Sep 29, 2023 12:43 PM Reporting Lab: [facility] [address] Performing Lab: [facility] [address] APTT 33.9 s 25.1-36.5 Oct 06, 2023 08:42 AM [facility] CALCIUM Specimen Type: PLASMA No comment entered. Ordering Provider: YOAV CERDA Report Released Date/Time: Sep 29, 2023 12:43 PM Reporting Lab: [facility] [address] Performing Lab: [facility] [phone] CALCIUM 10.1 mg/dL 8.4-10.2 Vital Signs: All taken on the encounter date This section contains inpatient and outpatient Vital Signs collected on the date of the Encounter. Date/Time Temperature Pulse Blood Pressure Respiratory Rate SP02 Pain Height Weight Body Mass Index Source Oct 06, 2023 09:29 AM 72 194.3 26 [facility] Oct 06, 2023 09:21 AM 98.0 101 130/93 14 99 0 [facility]
--- OUTSIDE RECORDS SUMMARY | 2024-02-03 11:14 | XMS_ITS | Encounter Summary ---
Author Name [place] Organization [place] Address [address] [place] [address] Care Team Providers Care Key Filer Name Role Phone PING VARGAS Primary Care [...] Name Patient's Relationship to Policy Galvan HUMANA [facility] (WNR) MEDICARE ADVANTAGE [facility] (WN) Aug 03, 2017 [id number] LUCAS THRASHER PATIENT MEDICARE (WNR) MEDICARE (M) PART A May 03, 2013 PART A [id number] LUCAS THRASHER PATIENT MEDICARE (WNR) MEDICARE (M) PART B May 03, 2013 PART B [id number] [phone] LUCAS THRASHER PATIENT Selected Encounter This section includes the information on record at [place] for the Encounter. Date/Time Encounter Type Encounter Description Reason Pro vider Source Nov 10, 2023 09:41 AM Outpatient Encounter CARDIOLOGY IHE Encounter Template Text not used by [place] Plan of Treatment: Future Appointments (+ 6 [...] 20 appointments. The data comes from all [place] treatment facilities. Appointment Date/Time Appointment Type Appointme nt Facility Name December 02, 2023 10:00 AM AM[facility]ULATORY - NONE [place] [facility] ([facility]) December 02, 2023 10:15 AM [facility]ORY - MEDICINE [place] ([facility]) December 11, 2023 11:00 AM AMBULATORY - MEDICINE [facility]it[facility] Lab Results: +/- 30 days of the encounter This section includes the Chemistry and Hematology Lab Results on record with [place] for the patient. Radiology Reports and Pathology Reports are provided separately, in subsequent sections. Lab Results This section contains the Chemistry/Hematology Results that were resulted 30 days before or 30 daysafter the date of the Encounter. Date/Time Source Result Type Result - Unit Interpretation Reference Range Comment December 02, 2023 09:53 AM [facility] BASIC METABOLIC PANEL+MG Specimen Type: PLASMA No comment entered. Ordering Provider: YOAV CERDA Report Released Date/Time: Oct 06, 2023 12:51 PM Reporting Lab: [facility] [phone] Performing Lab: [facility] [address] CREATININE 1.5 mg/dL H 0.7-1.2 UREA NITROGEN 21 mg/dL 8-26 GLUCOSE 96 mg/dL 70-100 SODIUM 139 mmol/L 136-145 POTASSIUM 4.4 mmol/L 3.5-5.1 CHLORIDE 104 mmol/L 98-107 CO2 26 mmol/L 22-29 CALCIUM 9.6 mg/dL 8.4-10.2 MAGNESIUM 1.8 mg/dL 1.6-2.6 ANION GAP 9 mmol/L 5-15 .CREAT EGFR(CKD-EPI ) 48 L >60 Encounter Notes: All associated encounter notes This section contains the clinical notes associated to the Encounter. Date/Time Encounter Note(s) Provider Source Nov 10, 2023 09:42 AM TELEHEALTH NOTE: LOCAL TITLE: TELEHEALTH TECHNOLOGY SCREENING (TTS)-HISTORICAL STANDARD TITLE: TELEHEALTH NOTE DATE OF NOTE: NOV 10, 2023@09:42 ENTRY DATE: NOV 10, 2023@09:42:29 AUTHOR: VIDAL HUGHES EXP COSIGNER: URGENCY: STATUS: COMPLETED agrees to [place] [facility] (VVC) and has capability and technology to complete a VVC visit, but needs a test call. Phone (texting): [phone] Device(s) they can use: Smart Phone (Android) /coleman/ VIDAL HUGHES LEAD MSA Signed: 11/10/2023 09:43 VIDAL HUGHES [facility]
--- OUTSIDE RECORDS SUMMARY | 2024-02-03 11:14 | XMS_ITS | Encounter Summary ---
Author Name [facility] [place] Organization [place] Address [address] [place] [address] Care Team Providers Care Welder Explosion Name Role Phone PIGN VARGAS Primary Care Provider Louisa segundo Insurance [...] Name Patient's Relationship to Policy Galvan HUMANA [facility] (WNR) MEDICARE ADVANTAGE [facility] ([facility]) Aug 03, 2017 [id number] LUCAS THRASHER PATIENT MEDICARE (WNR) MEDICARE (M) PART A May 03, 2013 PART A [id number] LUCAS THRASHER PATIENT MEDICARE (WNR) MEDICARE (M) PART B May 03, 2013 PART B [id number] [phone] LUCAS THRASHER PATIENT Selected Encounter This section includes the information on record at [place] for the Encounter. Date/Time Encounter Type Encounter Description Reason Pro vider Source Nov 09, 2023 02:00 PM Outpatient Encounter CARDIOLOGY IHE Encounter Template Text [...] 20 appointments. The data comes from all [place] treatment facilities. Appointment Date/Time Appointment Type Appointme nt Facility Name December 02, 2023 10:00 AM AMBULATORY - NONE [facility]) December 02, 2023 10:15 AM AMBULATORY - MEDICINE [facility] [place] ([facility]) December 11, 2023 11:00 AM AMBULATORY - MEDICINE [facility]itza [facility] Lab Results: +/- 30 days of [...] Range Comment December 02, 2023 09:53 AM [facility] BASIC METABOLIC PANEL+MG Specimen Type: PLASMA No comment entered. Ordering Provider: YOAV CERDA Report Released Date/Time: Oct 06, 2023 12:51 PM Reporting Lab: [facility] [address] Performing Lab: [facility] [address] CREATININE 1.5 mg/dL H 0.7-1.2 UREA NITROGEN [...] the Encounter. Date/Time Encounter Note(s) Provider Source December 02, 2023 10:20 AM ADDENDUM: LOCAL TITLE: Addendum STANDARD TITLE: ADDENDUM DATE OF NOTE: DECEMBER 02, 2023@10:20:07 ENTRY DATE: DECEMBER 02, 2023@10:20:08 AUTHOR: SAVANNAH WERNER EXP COSIGNER: URGENCY: STATUS: COMPLETED FYI EKG completed and uploaded today. BP was checked and was WNL. Taken per 's request. Labs completed today and results will be available on 12/03/23 /delaney Carrillo DEBBI [facility] ASSISTANT SURVEYOR Signed: 12/02/2023 10:21 Receipt Acknowledged By: 12/02/2023 10:49 /delaney CERDA PA-C PHYSICIAN PORTFOLIO CONSULTANT --- Original Document --- 11/09/23 PATIENT CONTACT NOTE: Patient contact note I called patient today since he did not show for scheduled F2F visit and he reports he called this morning and left a message to cancel appointment as he has a bad cold and is not feeling well. He reports wanting to reschedule with EKG and labs at [facility] and f/u with me via VVC after. Message to [facility] for scheduling efforts. /delaney CERDA PA-C PHYSICIAN PORTFOLIO CONSULTANT Signed: 11/09/2023 15:56 Receipt Acknowledged By: 11/10/2023 09:40 /coleman/ VIDAL HUGHES LEAD [facility] SAVANNAH WERNER Stella [facility] Nov 09, 2023 03:54 PM REPORT OF CONTACT: LOCAL TITLE: PATIENT CONTACT NOTE STANDARD TITLE: REPORT OF CONTACT DATE OF NOTE: NOV 09, 2023@15:54 ENTRY DATE: NOV 09, 2023@15:54:49 AUTHOR: YOAV CERDA EXP COSIGNER: URGENCY: STATUS: COMPLETED PATIENT CONTACT NOTE Has ADDENDA Patient contact note I called patient today since he did not show for scheduled F2F visit and he reports he called this morning and left a message to cancel appointment as he has a bad cold and is not feeling well. He reports wanting to reschedule with EKG and labs at [facility] and f/u with me via VVC after. Message to [facility] for scheduling efforts. /es/ YOAV CERDA PA-C PHYSICIAN PORTFOLIO CONSULTANT Signed: 11/09/2023 15:56 Receipt Acknowledged By: 11/10/2023 09:40 /es/ VIDAL HUGHES LEAD [facility] 12/02/2023 ADDENDUM STATUS: COMPLETED FYI EKG completed and uploaded today. BP was checked and was WNL. Taken per 's request. Labs completed today and results will be available on 12/03/23 /coleman/ [facility] ASSISTANT SURVEYOR Signed: 12/02/2023 10:21 Receipt Acknowledged By: * AWAITING SIGNATURE * YOAV CERDA [facility]A N [facility]
--- OUTSIDE RECORDS SUMMARY | 2024-02-03 11:14 | XMS_ITS | Encounter Summary ---
Author Name [place] Organization [place] Address [address] [place] [address] Care Team Providers Care Supervisor Sulfuric Acid Plant Name Role Phone PING VARGAS Primary Care [...] Name Patient's Relationship to Policy Galvan HUMANA [facility] (WNR) MEDICARE ADVANTAGE [facility] (WNR) Aug 03, 2017 [id number] LUCAS THRASHER PATIENT MEDICARE (WNR) MEDICARE (M) PART B May 03, 2013 PART B [id number] LUCAS THRASHER PATIENT MEDICARE (WNR) MEDICARE (M) PART A May 03, 2013 PART A [id number] [phone] LUCAS THRASHER PATIENT Selected Encounter This section includes the information on record at [place] for the Encounter. Date/Time Encounter Type Encounter Description Reason Pro vider Source Oct 06, 2023 10:00 AM Outpatient Encounter SURGICAL PROCEDURE UNIT IHE Encounter Template Text not used by [place] Plan of Treatment: Future Appointments (+ 6 months) and Future Tests (+/- 45 days) The Plan of Treatment section includes future care activities for the patient from all [place] treatmentfacilities. This section includes future appointments and [...] 01:00 PM AMBULATORY - NONE [place] [facility] Nov 09, 2023 01:30 PM AMBULATORY - [place]ICINE [place] [facility] December 02, 2023 10:00 AM AMBULATORY - NONE [place] [facility] ([facility]) December 02, 2023 10:15 AM AMBULATORY - MEDICINE [place] ([facility]) December 11, 2023 11:00 AM [facility] Lab Results: +/- 30 days of [...] Range Comment Oct 06, 2023 08:42 AM [facility] ELECTROLYTES/ANION GAP Specimen Type: PLASMA No comment entered. Ordering Provider: YOAV CERDA Report Released Date/Time: Sep 29, 2023 12:43 PM Reporting Lab: [facility] [place] [address] Performing Lab: [facility] [place] [address] SODIUM 139 mmol/L 136-145 POTASSIUM 5.1 mmol/L 3.5-5.1 CHLORIDE 104 mmol/L 98-107 CO2 26 mmol/L 22-29 ANION GAP 9 mmol/L 5-15 Oct 06, 2023 08:42 AM [facility] UREA NITROGEN Specimen Type: PLASMA No comment entered. Ordering Provider: YOAV CERDA Report Released Date/Time: Sep 29, 2023 12:43 PM Reporting Lab: [facility] [place] [address] Performing Lab: [facility] [place] [address] UREA NITROGEN 25 mg/dL 8-26 Oct 06, 2023 08:42 AM [facility] PROTHROMBIN TIME/INR Specimen Type: PLASMA No comment entered. Ordering Provider: YOAV CERDA Report Released Date/Time: Sep 29, 2023 12:43 PM Reporting Lab: [facility] [place] [address] Performing Lab: [id number] .INR 1.3 H 0.8-1.1 .PT 14.7 s H 9.4-12.5 Oct 06, 2023 08:42 AM [facility] MAGNESIUM Specimen Type: PLASMA No comment entered. Ordering Provider: YOAV CERDA Report Released Date/Time: Sep 29, 2023 12:43 PM Reporting Lab: [facility] [place] [address] Performing Lab: [facility] [place] [address] MAGNESIUM 1.8 mg/dL 1.6-2.6 Oct 06, 2023 08:42 AM [facility] CALCIUM Specimen Type: PLASMA No comment entered. Ordering Provider: YOAV CERDA Report Released Date/Time: Sep 29, 2023 12:43 PM Reporting Lab: [facility] [place] [address] Performing Lab: [facility] [place] [address] CALCIUM 10.1 mg/dL 8.4-10.2 Oct 06, 2023 08:42 AM [facility] CREATININE(INCLUDES EGFR) Specimen Type: PLASMA No comment entered. Ordering Provider: YOAV CERDA Report Released Date/Time: Sep 29, 2023 12:43 PM Reporting Lab: [facility] [place] [address] Performing Lab: [facility] [place] [address] CREATININE 1.6 mg/dL H 0.7-1.2 .CREAT EGFR(CKD-EPI) 45 L >60 Oct 06, 2023 08:42 AM [facility] CBC Specimen Type: BLOOD No comment entered. Ordering Provider: YOAV CERDA Report Released Date/Time: Sep 29, 2023 12:43 PM Reporting Lab: [facility] [place] [address] Performing Lab: [facility] [place] [address] WBC 4.04 10*3/uL 4.0-11.0 RBC 4.65 10*6/uL 4.6-6.2 HGB 15.4 g/dL 13.5-17.9 HCT 45.1 41-54 MCV 97.0 fL 80-100 MCH 33.1 pg H 27-33 MCHC 34.1 g/dL 32.0-37.5 PLT 164 10*3/uL 150-400 MPV 8.5 fL 7.4-10.4 RDW 13.2 11.5-14.5 Oct 06, 2023 08:42 AM [facility] ACT PART THROMBO TIME Specimen Type: PLASMA No comment entered. Ordering Provider: YOAV CERDA Report Released Date/Time: Sep 29, 2023 12:43 PM Reporting Lab: [facility] [place] [address] Performing Lab: [facility] [place] [address] APTT 33.9 s 25.1-36.5 Vital Signs: All taken on the encounter date This section contains inpatient and outpatient Vital Signs collected on the date of the Encounter. Date/Time Temperature Pulse Blood Pressure Respiratory Rate SP02 Pain Height Weight Body Mass Index Source Oct 06, 2023 09:29 AM 72 194.3 26 [facility] Oct 06, 2023 09:21 AM 98.0 101 130/93 14 99 0 [facility] Encounter Notes: All associated encounter notes This section contains the clinical notes associated to the Encounter. Date/Time Encounter Note(s) Provider Source Oct 06, 2023 09:23 AM NURSING OUTPATIENT NOTE: LOCAL TITLE: NURSING SHORT STAY NOTE STANDARD TITLE: NURSING OUTPATIENT NOTE DATE OF NOTE: OCT 06, 2023@09:23 ENTRY DATE: OCT 06, 2023@09:23:45 AUTHOR: SKYLA MONTELONGO EXP COSIGNER: URGENCY: STATUS: COMPLETED Pre-Cardioversion/Non-Invasive Programmed Stimulation(NIPS) Diagnosis: Afib Vital Signs: Temperature: 98.0 F [36.7 C] (10/06/2023 09:21) Pulse: 101 (10/06/2023 09:21) Respirations: 14 (10/06/2023 09:21) BP: 130/93 (10/06/2023 09:21) Pulse Oximetry: 99% (10/06/2023 09:21) Pain Score: 0 (10/06/2023 09:21) Height: 72 in [182.9 cm] (10/06/2023 09:29) Weight: 194.3 lb [88.13 kg] (10/06/2023 09:29) Medication list reviewed with patient/caregiver, states it is accurate: Yes What medication/s did you take today? all reg meds except metoprolol which patient reports holding for the last few days, pt has also been taking apixaban as ordered What medication/s did you hold today?metoprolol; Peripheral IV placed: No; labor relations representative aware; Confirm: Client was NPO after Midnight? Yes Labs drawn? Yes EKG completed? Yes Medication list reviewed with patient/caregiver? Yes ID/Allergy band on and verified: Yes Glasses/Contacts: Yes Hearing aids: Yes Dentures: Slana and phone number of cdl driver/responsible caregiver: Chilango Sullivan(friend) [phone](cell) Cardioversion Education Booklet given to patient: Yes /coleman/ SKYLA MONTELONGO WEBSPHERE ADMINISTRATOR NURSE Signed: 10/06/2023 09:36 SKYLA MONTELONGO [facility]
--- OUTSIDE RECORDS SUMMARY | 2024-02-03 11:14 | XMS_ITS | Encounter Summary ---
Author Name [place] Organization [place] Address [address] [place] [address] Care Team Providers Care Contract Technical Writer Name Role Phone PING VARGAS Primary Care [...] Name Patient's Relationship to Policy Galvan HUMANA [facility] (WNR) MEDICARE ADVANTAGE [facility] ([facility]) Aug 03, 2017 [id number] LUCAS THRASHER PATIENT MEDICARE (WNR) MEDICARE (M) PART A May 03, 2013 PART A [id number] LUCAS THRASHER PATIENT MEDICARE (WNR) MEDICARE (M) PART B May 03, 2013 PART B [id number] LUCAS THRASHER PATIENT Selected Encounter This section includes the information on record at [place] for the Encounter. Date/Time Encounter Type Encounter Description Reason Provider Source Jul 01, 2023 11:00 AM OFF/OP CONSLTJ NEW/EST HI 55 CARDIOLOGY ICD-10-CM I48.91 Unspecified atrial fibrillation DAVID NORRIS E Encounter Template Text not used by [place] Assessments - Encounter Diagnoses This section includes the primary and secondary diagnoses documented for the Encounter. Date/Time Primary/Secondary Diagnosis Diagnosis Name Provider Source Jul 01, 2023 12:58 PM PRIMARY Unspecified atrial fibrillation DAVID NORRIS [facility] Jul 01, 2023 12:58 PM SECONDARY penitentiary (current) use of anticoagulants DAVID NORRIS [facility] Jul 01, 2023 12:58 PM SECONDARY Nonrheumatic aortic (valve) stenosis DAVID NORRIS [facility] Plan of Treatment: Future Appointments (+ 6 months) and Future Tests (+/- 45 days) The Plan of Treatment section includes future care activities for the patient [facility] [place] [facility] This section includes future appointments and future [...] 28, 2023 01:00 PM [facility] Sep 23, 2023 10:45 AM [facility] Sep 23, 2023 11:00 AM [facility] Oct 06, 2023 09:00 AM [facility] Oct 06, 2023 09:30 AM [facility] Oct 06, 2023 10:00 AM AMBULATORY - [place] [facility] Oct 06, 2023 11:00 AM [facility] Oct 06, 2023 12:00 PM [facility] Nov 09, 2023 01:00 PM [facility]ORY - [place]ONE [place] [facility] Nov 09, 2023 01:30 PM [facility] December 02, 2023 10:00 AM AMB[facility]ATORY - NONE [place] [facility] ([facility]) December 02, 2023 10:15 AM AMBULATORY - MEDICINE [place] ([facility]) December 11, 2023 11:00 AM AMBULATORY - MEDICINE [facility] Lab Results: +/- 30 days of the [...] Range Comment Jul 01, 2023 09:43 AM [facility] BNP Specimen Type: PLASMA No comment entered. Ordering Provider: DARIUS WILLAMS Report Released Date/Time: Jun 11, 2023 04:56 PM Reporting Lab: [facility] [address] Performing Lab: [facility] [address] BNP 756 pg/mL H <99 Jul 01, 2023 09:43 AM [facility] CREATININE(INCLUDES EGFR) Specimen Type: PLASMA No comment entered. Ordering Provider: DARIUS WILLAMS Report Released Date/Time: Jun 11, 2023 04:56 PM Reporting Lab: [facility] [address] Performing Lab: [facility] [address] CREATININE 1.3 mg/dL H 0.7-1.2 .CREAT EGFR(CKD-EPI) 57 L >60 Jul 01, 2023 09:43 AM [facility] ELECTROLYTES/ANION GAP Specimen Type: PLASMA No comment entered. Ordering Provider: DARIUS WILLAMS Report Released Date/Time: Jun 11, 2023 04:56 PM Reporting Lab: [facility] [address] Performing Lab: [facility] [address] SODIUM 141 mmol/L 136-145 POTASSIUM 4.5 mmol/L 3.5-5.1 CHLORIDE 104 mmol/L 98-107 CO2 28 mmol/L 22-29 ANION GAP 9 mmol/L 5-15 Jul 01, 2023 09:43 AM [facility] UREA NITROGEN Specimen Type: PLASMA No comment entered. Ordering Provider: DARIUS WILLAMS Report Released Date/Time: Jun 11, 2023 04:56 PM Reporting Lab: [facility] [address] Performing Lab: [facility] [address] UREA NITROGEN 20 mg/dL 8-26 Jun 05, 2023 10:54 AM [facility] ([facility]) TSH W/REFLEX TO FREE T4 Specimen Type: PLASMA No comment entered. Ordering Provider: PING VARGAS Report Released Date/Time: Jun 05, 2023 10:42 AM Reporting Lab: [facility] [address] Performing Lab: [facility] [address] TSH 4.34 u[IU]/mL 0.35-4.94 Jun 05, 2023 10:54 AM [facility] ([facility]) B 12 Specimen Type: SERUM No comment entered. Ordering Provider: PING VARGAS Report Released Date/Time: Jun 05, 2023 10:42 AM Reporting Lab: [facility] [address] Performing Lab: [facility] [address] B 12 618 pg/mL 213-816 Jun 05, 2023 10:54 AM [facility] ([facility]) FOLATE Specimen Type: SERUM No comment entered. Ordering Provider: PING VARGAS Report Released Date/Time: Jun 05, 2023 10:42 AM Reporting Lab: [facility] [address] Performing Lab: [place] [id number] FOLATE 17.7 ng/mL >7.0 Jun 05, 2023 10:54 AM [facility] ([facility]) HEMOGLOBIN A1C Specimen Type: BLOOD Comment: [...] Jun 05, 2023 10:42 AM Reporting Lab: [facility] [address] Performing Lab: [facility] [address] HEMOGLOBIN A1C 5.6 4.0-6.0 Jun 05, 2023 10:54 AM [facility] ([facility]) COMPREHENSIVE METABOLIC PANEL+MG Specimen Type: PLASMA No comment entered. Ordering Provider: PING VARGAS Report Released Date/Time: Jun 05, 2023 10:42 AM Reporting Lab: [facility] [address] Performing Lab: [facility] [address] CREATININE 1.3 mg/dL H 0.7-1.2 UREA NITROGEN 21 mg/dL 8-26 GLUCOSE 106 mg/dL H 70-100 SODIUM 140 mmol/L 136-145 POTASSIUM 4.4 mmol/L 3.5-5.1 CHLORIDE 103 mmol/L 98-107 CO2 26 mmol/L 22-29 CALCIUM 9.5 mg/dL 8.4-10.2 PROTEIN,TOTAL 7.1 g/dL 6.0-8.3 ALBUMIN 4.3 g/dL 3.5-5.2 BILIRUBIN, TOTAL 0.5 mg/dL 0.2-1.2 MAGNESIUM 1.9 mg/dL 1.6-2.6 ANION GAP 11 mmol/L 5-15 ALKALINE PHOSPHATASE 60 U/L 40-150 ALT/SGPT 21 U/L <55 AST/SGOT 19 U/L <34 .CREAT EGFR(CKD-EPI) 57 L >60 Jun 05, 2023 10:54 AM [facility]) LIPID PANEL,NON-FASTING Specimen Type: PLASMA No comment entered. 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 CARDIAC HISTORY: On 04/29/2023, Presented to [facility] with weakness, was found to be in Afib RVR, was treated with Diltiazem drip, not a candidate for DCCV given not properly coagulated. Eliquis and metoprolol were initiated. On 03/06/2022, echocardiogram showed normal LVEF 70% and mild to moderate . No evidence of ischemia with good exercise capacity (7:26 minutes). [place] is physically active. 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 Denies chest pain. At night when [...] he lays down. SOCIAL HISTORY: lives [place] SMOKER: none ETOH: a couple of [...] the followin. Benign prostatic hyperplasia (SNOMED CT 295091055) 2. Polyp of colon (SNOMED CT 45872541) 3. Hypertension (SNOMED CT 20329320) 4. Cataract nos 5. Hydrocele of testis 6. Erectile dysfunction (SNOMED CT 233398624) 7. Impaired fasting glucose 8. Hyperlipidemia 9. Obesity 10. Aortic valve stenosis - mild per 07/2020 echo 11. 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 AF-Atrial Fibrillation ([facility] 90321320) 14. Long-Term Current Use of Anticoagulant ([facility] [id number]) Medications: Active Outpatient Medications (including Supplies): Active [...] H (06/05/23) - No data available DIAGNOSTICS/IMAGING/SCORING [id number] Score: - [id number] = age+2, HTN = 3: LOW RISK - HASBLED = age, etoh = 2: MODERATE RISK EK07/01/2023 Echocardiogram: full report available in [facility] ([facility]) 03/2022 1. Maximum stress test with 96.5% [...] LORI. [employer] brochure was given to . Today's consult and recommendations discussed with him [...] any questions. /coleman/ MARTÍN LINDSAY MD STAFF MANAGER GROUP HOME Signed: 07/01/2023 13:[address] [facility]
--- OUTSIDE RECORDS SUMMARY | 2024-02-03 11:14 | XMS_ITS | Encounter Summary ---
Author Name [facility] [place] Organization [facility] [place] Address [address] [place] [address] Care Team Providers Care Hat Lacer Name Role Phone PING VARGAS Primary Care [...] Name Patient's Relationship to Policy Gal[place] HUMANA [facility] (WNR) MEDICARE ADVANTAGE [facility] ([place]) Aug 03, 2017 [id number] LUCAS THRASHER EN PATIENT MEDICARE (WN) MEDICARE (M) PART A May 03, 2013 PART A [id number] LUCAS THRASHER PATIENT MEDICARE (WN) MEDICARE (M) PART B May 03, 2013 PART B [id number] [phone] LUCAS THRASHER PATIENT Selected Encounter This section includes the information on record at [place] for the Encounter. 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 Date/Time Primary/Secondary Diagnosis Diagnosis Name Provider Source Jun 23, 2023 01:28 PM PRIMARY alf (current) use of anticoagulants MYKEL REAVES [facility] Jun 23, 2023 01:28 PM SECONDARY Encounter for therapeutic drug level monitoring MYKEL REAVES [facility] Jun 23, 2023 01:28 PM SECONDARY Unspecified atrial fibrillation POEPPINGMYKEL [facility] Plan of Treatment: Future Appointments (+ 6 months) and Future Tests (+/- 45 days) The Plan of Treatment section includes future care activities for the patient from all [place] [facility] This section includes future appointments and future orders which are active, pending or scheduled. Future Appointments This section includes appointments that were scheduled to occur 6 months from the date of the Encounter, up to a maximum of 20 appointments. The data comes from all [facility] facilities. Appointment Date/Time Appointment Type Appointme nt Facility Name Jul 01, 2023 10:00 AM [facility] [place] [facility] Jul 01, 2023 10:30 [facility] Jul 01, 2023 11:00 [facility] Aug 28, 2023 01:00 PM [facility] - [place]ONE [place] [facility] Sep 23, 2023 10:45 AM [place] [facility] Sep 23, 2023 11:00 AM [place] [facility] Oct 06, 2023 09:00 AM AM[place]ORY - [place]ONE [place] [facility] Oct 06, 2023 09:30 AM [place] [facility] Oct 06, 2023 10:00 AM [place] [facility] Oct 06, 2023 11:00 AM [place] [facility] Oct 06, 2023 12:00 PM [place] [facility] Nov 09, 2023 01:00 PM [place]ONE [place] [facility] Nov 09, 2023 01:30 PM [place] [facility] December 02, 2023 10:00 AM AMBULATORY - NONE [place] [facility] December 02, 2023 10:15 AM AM[facility] - [facility]ICINE [place] [facility] December 11, 2023 11:00 AM AMBULATORY - MEDICINE [place] Lab Results: +/- 30 days of the encounter This section includes the Chemistry and Hematology Lab Results on record with [place] for the patient. Radiology Reports and Pathology Reports are provided separately, in subsequent sections. Lab Results This section contains the Chemistry/Hematology Results that were resulted 30 days before or 30 daysafter the date of the Encounter. Date/Time Source Result Type Result - Unit Interpretation Reference Range Comment Jul 01, 2023 09:43 AM [facility] BNP Specimen Type: PLASMA No comment entered. Ordering Provider: DARIUS WILLAMS Report Released Date/Time: Jun 11, 2023 04:56 PM Reporting Lab: [facility] [id number] Performing Lab: [facility] [id number] BNP 756 pg/mL H <99 Jul 01, 2023 09:43 AM [facility] UREA NITROGEN Specimen Type: PLASMA No comment entered. Ordering Provider: DARIUS WILLAMS Report Released Date/Time: Jun 11, 2023 04:56 PM Reporting Lab: [facility] [id number] Performing Lab: [facility] [id number] UREA NITROGEN 20 mg/dL 8-26 Jul 01, 2023 09:43 AM [facility] ELECTROLYTES/ANION GAP Specimen Type: PLASMA No comment entered. Ordering Provider: DARIUS WILLAMS Report Released Date/Time: Jun 11, 2023 04:56 PM Reporting Lab: [facility] [phone] Performing Lab: [facility] [id number] SODIUM 141 mmol/L 136-145 POTASSIUM 4.5 mmol/L 3.5-5.1 CHLORIDE 104 mmol/L 98-107 CO2 28 mmol/L 22-29 ANION GAP 9 mmol/L 5-15 Jul 01, 2023 09:43 AM [facility] CREATININE(INCLUDES EGFR) Specimen Type: PLASMA No comment entered. Ordering Provider: DARIUS WILLAMS Report Released Date/Time: Jun 11, 2023 04:56 PM Reporting Lab: [facility] [id number] Performing Lab: [facility] [phone] CREATININE 1.3 mg/dL H 0.7-1.2 .CREAT EGFR(CKD-EPI) 57 L >60 Jun 05, 2023 10:54 AM [place] [facility]) B 12 Specimen Type: SERUM No comment entered. Ordering Provider: PING VARGAS Report Released Date/Time: Jun 05, 2023 10:42 AM Reporting Lab: [place] [address] Performing Lab: [place] [id number] B 12 618 pg/mL 213-816 Jun 05, 2023 10:54 AM [place] ([facility]) TSH W/REFLEX TO FREE T4 Specimen Type: PLASMA No comment entered. Ordering Provider: PING VARGAS Report Released Date/Time: Jun 05, 2023 10:42 AM Reporting Lab: [place] [phone] Performing Lab: [place] [id number] TSH 4.34 u[IU]/mL 0.35-4.94 Jun 05, 2023 10:54 AM [place] ([facility]) FOLATE Specimen Type: SERUM No comment entered. Ordering Provider: PING VARGAS Report Released Date/Time: Jun 05, 2023 10:42 AM Reporting Lab: [facility] [id number] Performing Lab: [place] [address] FOLATE 17.7 ng/mL >7.0 Jun 05, 2023 10:54 AM [place] ([facility]) HEMOGLOBIN A1C Specimen Type: BLOOD Comment: [...] 10:42 AM Reporting Lab: [facility] [phone] Performing Lab: [place] [address] HEMOGLOBIN A1C 5.6 4.0-6.0 Jun 05, 2023 10:54 AM [place] ([facility]) LIPID PANEL,NON-FASTING Specimen Type: PLASMA No comment entered. Ordering Provider: PING VARGAS Report Released Date/Time: Jun 05, 2023 10:42 AM Reporting Lab: [facility] [phone] Performing Lab: [facility] [address] CHOLESTEROL 240 mg/dL H <199 .HDL 87 mg/dL >40 LDL CALCULATION 132 mg/dL H <99 VLDL CALCULATION 21 mg/dL <29 NON HDL CHOLESTEROL 153 mg/dL H <129 TRIG(NON FASTING) 105 mg/dL <149 Jun 05, 2023 10:54 AM [place] ([facility]) COMPREHENSIVE METABOLIC PANEL+MG Specimen Type: PLASMA No comment entered. Ordering Provider: PING VARGAS Report Released Date/Time: Jun 05, 2023 10:42 AM Reporting Lab: [facility] [phone] Performing Lab: [facility] [phone] CREATININE 1.3 mg/dL H 0.7-1.2 UREA NITROGEN [...] U/L <34 .CREAT EGFR(CKD-EPI) 57 L >60 Encounter Notes: All associated encounter notes This section contains the clinical notes associated to the Encounter. 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 SUBJECTIVE/OBJECTIVE: Obtained from chart [...] BMI >50: Comanaged patients: YES Agrees to [facility] management, comanagement not allowed: YES [...] or APTT - current warfarin mgmt through [facility] ASSESSMENT/PLAN: Appropriate for transition from warfarin to [...] Will mail out new apixaban Rx from [facility]. - Patient will continue taking warfarin as [...] for labs, drug interactions, and compliance. - alf use of anticoagulants added to problem list. [...] needed Time spent on education: 15 minutes /coleman/ Claudia Reaves PharmD, BCACP Clinical Electronics Inspector Signed: 06/23/2023 13:28 CLAUDIA REAVES [facility]
--- OUTSIDE RECORDS SUMMARY | 2024-02-03 11:14 | XMS_ITS | Encounter Summary ---
Author Name [facility] [place] Organization [facility] [place] Address [address] [place] [id number] Care Team Providers Care Lockstitch Waistline Joiner Name Role Phone PING VARGAS Primary Care [...] Name Patient's Relationship to Policy [place] HUMANA [facility] (WNR) MEDICARE ADVANTAGE [facility] ([place]NR) Aug 03, 2017 [id number] LUCAS THRASHER PATIENT MEDICARE (WNR) MEDICARE (M) PART B May 03, 2013 PART B [id number] LUCAS THRASHER PATIENT MEDICARE (WNR) MEDICARE (M) PART A May 03, 2013 PART A [id number] LUCAS THRASHER PATIENT Selected Encounter This section includes the information on record at [place] for the Encounter. Date/Time Encounter Type Encounter Description Reason Pro vider Source IHE Encounter Template Text not used by [place]
--- OUTSIDE RECORDS SUMMARY | 2024-02-03 11:14 | XMS_ITS | Encounter Summary ---
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 Role Phone PING VARGAS Primary Care [...] Galvan's Name Patient's Relationship to Policy [facility] (R) MEDICARE ADVANTAGE [facility] ([facility]) Aug 03, 2017 [id number] LUCAS THRASHER PATIENT MEDICARE ([facility]) MEDICARE (M) PART B May 03, 2013 PART B [id number] LUCAS THRASHER PATIENT MEDICARE ([facility]) MEDICARE (M) PART A May 03, 2013 PART A [id number] [phone] LUCAS THRASHER PATIENT Selected Encounter This section includes the information on record at [place] for the Encounter. Date/Time Encounter Type Encounter Description Reason Provider Source Jun 05, 2023 10:00 AM OFFICE O/P EST HI 40-54 MIN PRIMARY CARE/MEDICINE ICD-10-CM I48.19 Other persistent atrial fibrillation PING VARGAS Encounter Template Text not used by [place] Assessments - Encounter Diagnoses This section includes the primary and secondary diagnoses documented for the Encounter. Date/Time Primary/Secondary Diagnosis Diagnosis Name Provider Source Jun 05, 2023 10:58 AM PRIMARY Other persistent atrial fibrillation PING VARGAS ([facility]) Jun 05, 2023 10:58 AM SECONDARY Aortic aneurysm of unspecified site, without rupture PING VARGAS [place] ([facility]) Jun 05, 2023 10:58 AM SECONDARY Benign prostatic hyperplasia with lower urinary tract symp PING VARGAS [place] ([facility]) Jun 05, 2023 10:58 AM SECONDARY Encntr for general adult medical exam w/o abnormal findings PING VARGAS [place] ([facility]) Jun 05, 2023 10:58 AM SECONDARY Encounter for immunization TENNILLE WERNER [place] ([facility]) Jun 05, 2023 10:58 AM SECONDARY Essential (primary) hypertension PING VARGAS [place] ([facility]) Jun 05, 2023 10:58 AM SECONDARY Hydrocele, unspecified PING VARGASYuki ANGUIANO ([facility]) Jun 05, 2023 10:58 AM SECONDARY Hyperlipidemia, unspecified PING VARGAS [place] ([facility]) Jun 05, 2023 10:58 AM SECONDARY Impaired fasting glucose PING VARGAS [place] ([facility]) Jun 05, 2023 10:58 AM SECONDARY Male erectile dysfunction, unspecified PING VARGAS [place] ([facility]) Jun 05, 2023 10:58 AM SECONDARY Neoplasm of unspecified behavior of digestive system PING VARGAS [place] ([facility]) Jun 05, 2023 10:58 AM SECONDARY Nonrheumatic aortic (valve) stenosis PING VARGAS [place] ([facility]) Jun 05, 2023 10:58 AM SECONDARY Obesity, unspecified PING VARGAS [place] ([facility]) Jun 05, 2023 10:58 AM SECONDARY Polyp of colon ALICIAPING BRANHAMYuki ANGUIANO ([facility]) Plan of Treatment: Future Appointments (+ 6 months) and Future Tests (+/- 45 days) The Plan of Treatment section includes future care activities for the patient from all [place] treatmentfacilities. This section includes future appointments and future orders which are active, pending or scheduled. Future Appointments This section includes appointments that were scheduled to occur 6 months from the date of the Encounter, up to a maximum of 20 appointments. The data comes from all [facility] facilities. Appointment Date/Time Appointment Type Appointme nt Facility Name Jul 01, 2023 10:00 AM AM[facility]ATORY - NONE [place] [facility] Jul 01, 2023 10:30 AM AMBUL[place]ORY [place]IC[place] [facility] Jul 01, 2023 11:00 AM [place]ORY - [place]ICINE [place] [facility] Aug 28, 2023 01:00 PM AMBULATORY - NONE [place] [facility] Sep 23, 2023 10:45 AM [place]UL[place]ORY - [place]ICINE [place] [facility] Sep 23, 2023 11:00 AM [place]UL[place]ORY - [place]ICINE [place] [facility] Oct 06, 2023 09:00 AM AMB[facility]ORY - NONE [place] [facility] Oct 06, 2023 09:30 AM [place]IC[place] [facility] Oct 06, 2023 10:00 AM AMB[place]ORY [place]GERY [place] [facility] Oct 06, 2023 11:00 AM [place]ORY [place]IC[place] [facility] Oct 06, 2023 12:00 PM AMBUL[place]ORY - [place]ICINE [place] [facility] Nov 09, 2023 01:00 PM AM[place]ORY - NONE [place] [facility] Nov 09, 2023 01:30 PM [place]ORY [place]ICINE [place] [facility] December 02, 2023 10:00 AM AMBULATORY - NONE [place] [facility] ([facility]) December 02, 2023 10:15 AM AMBULATORY - MEDICINE [place] ([facility]) Lab Results: +/- 30 days of the [...] Range Comment Jul 01, 2023 09:43 AM [facility] BNP Specimen Type: PLASMA No comment entered. Ordering Provider: DARIUS WILLAMS Report Released Date/Time: Jun 11, 2023 04:56 PM Reporting Lab: [facility] [id number] Performing Lab: [facility] [id number] BNP 756 pg/mL H <99 Jul 01, 2023 09:43 AM [facility] UREA NITROGEN Specimen Type: PLASMA No comment entered. Ordering Provider: DARIUS WILLAMS Report Released Date/Time: Jun 11, 2023 04:56 PM Reporting Lab: [facility] [id number] Performing Lab: [facility] [id number] UREA NITROGEN 20 mg/dL 8-Jul 01, 2023 09:43 AM [facility] ELECTROLYTES/ANION GAP Specimen Type: PLASMA No comment entered. Ordering Provider: DARIUS WILLAMS Report Released Date/Time: Jun 11, 2023 04:56 PM Reporting Lab: [facility] [phone] Performing Lab: [facility] [phone] SODIUM 141 mmol/L 136-145 POTASSIUM 4.5 mmol/L 3.5-5.1 CHLORIDE 104 mmol/L 98-107 CO2 28 mmol/L 22-29 ANION GAP 9 mmol/L 5-15 Jul 01, 2023 09:43 AM [facility] CREATININE(INCLUDES EGFR) Specimen Type: PLASMA No comment entered. Ordering Provider: DARIUS WILLAMS Report Released Date/Time: Jun 11, 2023 04:56 PM Reporting Lab: [facility] [phone] Performing Lab: [facility] [phone] CREATININE 1.3 mg/dL H 0.7-1.2 .CREAT EGFR(CKD-EPI) 57 L >60 Jun 05, 2023 10:54 AM [place] ([facility]) B 12 Specimen Type: SERUM No comment entered. Ordering Provider: PING VARGAS Report Released Date/Time: Jun 05, 2023 10:42 AM Reporting Lab: [facility] [phone] Performing Lab: [facility] [address] B 12 618 pg/mL 213-816 Jun 05, 2023 10:54 AM [place] ([facility]) FOLATE Specimen Type: SERUM No comment entered. Ordering Provider: PING VARGAS Report Released Date/Time: Jun 05, 2023 10:42 AM Reporting Lab: [facility] [phone] Performing Lab: [facility] [phone] FOLATE 17.7 ng/mL >7.0 Jun 05, 2023 10:54 AM [place] ([facility]) TSH W/REFLEX TO FREE T4 Specimen Type: PLASMA No comment entered. Ordering Provider: PING VARGAS Report Released Date/Time: Jun 05, 2023 10:42 AM Reporting Lab: [facility] [phone] Performing Lab: [facility] [phone] TSH 4.34 u[IU]/mL 0.35-4.94 Jun 05, 2023 10:54 AM [place] ([facility]) HEMOGLOBIN A1C Specimen Type: BLOOD Comment: [...] 2023 10:42 AM Reporting Lab: [facility] [phone] Performing Lab: [facility] [phone] HEMOGLOBIN A1C 5.6 4.0-6.0 Jun 05, 2023 10:54 AM [place] ([facility]) LIPID PANEL,NON-FASTING Specimen Type: PLASMA No comment entered. Ordering Provider: PING VARGAS Report Released Date/Time: Jun 05, 2023 10:42 AM Reporting Lab: [facility] [phone] Performing Lab: [facility] [phone] CHOLESTEROL 240 mg/dL H <199 .HDL 87 mg/dL >40 LDL CALCULATION 132 mg/dL H <99 VLDL CALCULATION 21 mg/dL <29 NON HDL CHOLESTEROL 153 mg/dL H <129 TRIG(NON FASTING) 105 mg/dL <149 Jun 05, 2023 10:54 AM [place] ([facility]) COMPREHENSIVE METABOLIC PANEL+MG Specimen Type: PLASMA No comment entered. Ordering Provider: PING VARGAS Report Released Date/Time: Jun 05, 2023 10:42 AM Reporting Lab: [facility] [phone] Performing Lab: [facility] [phone] CREATININE 1.3 mg/dL H 0.7-1.2 UREA NITROGEN [...] U/L <34 .CREAT EGFR(CKD-EPI) 57 L >60 Vital Signs: All taken on the encounter date This section contains inpatient and outpatient Vital Signs collected on the date of the Encounter. Date/Time Temperature Pulse Blood Pressure Respiratory Rate SP02 Pain Height Weight Body Mass Index Source Jun 05, 2023 10:01 AM 123/82 mm[Hg] 99 % [place] [facility] ([facility]) Jun 05, 2023 09:52 AM 97.8 F 106 /min 136/91 mm[Hg] 14 /min 96 % 0 70.866 in 194.1 lb 27 [place] ([facility]) Immunizations: All administered on the encounter date This section contains immunizations associated to the Encounter. Immunization Series Date Issued Reaction Comments COVID-19 ([facility]), MRNA, LNP -S, PF, ELEAZAR-SUCROSE, 30 MCG/0.3 ML (AGES 12+ YEARS) 1 Jun 05, 2023 INFLUENZA, HIGH-DOSE, QUADRIVALENT Jun 05, 2023 Social History: Smoking Status (Most current) and Tobacco Use (All prior to encounter date) This section includes the most current, and the historical, smoking and tobacco- related health factors from the [place] facility where the Encounter took place. Current Smoking Status This section includes the most current smoking, or tobacco-related health factor, from the [place] facility where the Encounter took place. Date/Time Current Smoking Status Lamont carr Jun 05, 2023 10:00 AM [place]-TOBACCO FORMER USER [place] ([facility]) Tobacco Use History This section includes a history of the smoking, or tobacco-related health factors, that were collected on or before the date of the Encounter. The data comes from the [place] facility where the Encounter took place. Date/Time Smoking Status/Tobacco Use Comment F acility Jun 05, 2023 10:00 AM VA-TOBACCO QUIT 15 YRS OR MORE [place] ([facility]) Jun 04, 2022 02:00 PM VA-TOBACCO FORMER USER [place] ([facility]) Jun 04, 2022 02:00 PM VA-TOBACCO QUIT 15 YRS OR MORE [place] ([facility]) Jun 05, 2021 10:00 AM VA-TOBACCO FORMER USER [place] ([facility]) Jun 05, 2021 10:00 AM VA-TOBACCO QUIT 15 YRS OR MORE [place] ([facility]) May 23, 2020 11:00 AM VA-TOBACCO FORMER USER [place] ([facility]) May 23, 2020 11:00 AM VA-TOBACCO QUIT 15 YRS OR MORE [place] ([facility]) May 20, 2019 01:28 PM VA-TOBACCO FORMER USER [place] ([facility]) May 20, 2019 01:28 PM VA-TOBACCO QUIT 15 YRS OR MORE [place] ([facility]) Apr 28, 2018 11:47 AM VA-TOBACCO FORMER USER [place] ([facility]) Apr 28, 2018 11:47 AM VA-TOBACCO QUIT 15 YRS OR MORE [place] ([facility]) Jul 16, 2017 02:25 PM FORMER [...] AM H & P NOTE: LOCAL TITLE: [facility] ANNUAL VISIT STANDARD TITLE: H & P NOTE DATE OF NOTE: JUN 05, 2023@10:10 ENTRY DATE: JUN 05, 2023@09:55:11 AUTHOR: PING VARGAS EXP COSIGNER: URGENCY: STATUS: COMPLETED Type of Visit: Face to Face Reason for Visit: annual visit HPI: 73 year-old MALE here for annual visit. 04/29/23: Presented to [facility] with weakness, was found to be in Afib RVR, was treated with Diltiazem drip, not a candidate for DCCV given not properly coagulated. - scripts provided for Eliquis 5mg BID Dose pack 30DS and Metoprolol Succinate 25mg --- Eliquis was exchanged for Warfarin due to cost. --- INRs completed at [facility] Today he reports having no stamina, minor shortness of breath, and some discomfort with lying down. -- HR remains elevated at 125 bpm Requests cardiology consult. Reports no other concerns today. Co-managed: [facility] specialty, also [facility] for PCP - 05/06/23: Radiation Oncology, f/u [...] healthy Social History: 1. . Lives in [place] with 2. 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 [employer] [id number] 4. Quit smoking in early 1999, 'socially' 5. Drinking 3 beers or 3 brandys per night on average --- today reporting decreased intake r/t afib/anticoagulation. Physical Exam: Temp: 97.8 F [36.6 C] (06/05/2023 09:52) Pulse:106 (06/05/2023 09:52) BP: 136/91 (06/05/2023 09:52) Resp: 14 (06/05/2023 09:52) Weight: 194.1 lb [88.04 kg] (06/05/2023 09:52) Pain: 0 (06/05/2023 09:52) O2 Sat: 96% (06/05/2023 09:52) BMI: 27.2 General: AAOx3, NAD, Healthy, appears [...] Allergy/ADR Data available for this patient [place] [facility] Imaging Assessment/Plan: 1. Hypertension 2. Aortic valve stenosis, mild per 07/2020 echo 3. Hyperlipidemia 4. Obesity 5. Impaired fasting glucose - No HTN/HLD medications - ASA 81mg daily - CMP, CBC, A1c, TSH today 6. Atrial fibrillation with rapid ventricular rate - EKG obtained and shows afib rvr, rate 125. - Cardiology consult - Continue Eliquis 5mg BID --- [facility] Anticoagulation consult placed - Increase Metoprolol Succinate [...] - Completed chemotherapy and radiation therapy through [facility] and [facility] - Continue to follow with outside providers. 9. Benign prostatic hyperplasia - No current concerns 10. Erectile dysfunction - Previously on Sildenafil, not currently. 11. Cataract nos 12. Macular degeneration, bilateral eyes - Follows with [facility] in [place] - Stable and still able to drive. [...] Immunization Series Date Facility Reaction Info COVID-19 ([facility]), MRNA, LNP-S, B* 1 05/20/2022 [facility]* COVID-19 ([facility]), MRNA, LNP-S, P* 3 06/07/2021 [place]* 2 11/30/2020 [place]* 1 11/09/2020 [place]* INFLUENZA, HIGH DOSE SEASONAL 06/19/2017 [place] * 06/19/2016 [place] * INFLUENZA, HIGH-DOSE, QUADRIVALEN* 05/23/2021 [facility] [facility] INFLUENZA, INJECTABLE, QUADRIVALE* 05/03/2020 [facility] [facility] 05/25/2015 [facility] [facility] INFLUENZA, INJECTABLE, QUADRIVALE* 05/23/2020 [place] * INFLUENZA, SEASONAL, INJECTABLE 05/18/2019 [facility] [facility] 05/25/2015 [facility] <C> 05/07/2013 [facility] [facility] 05/13/2012 [facility] [facility] 07/03/2005 [facility] [facility] 06/12/2003 [facility] [facility] 06/10/2002 [facility] [facility] INFLUENZA, SEASONAL, INJECTABLE,* 05/20/2019 [place] * 05/17/2018 [place] * 05/14/2011 [facility] [facility] INFLUENZA, UNSPECIFIED FORMULATIO* 05/20/2022 [facility]* 05/23/2021 [facility]* 05/07/2014 [facility]* <C> 06/07/2013 [place] * 06/01/2012 [place] * 05/14/2011 [place] * Abimael sorensen* PNEUMOCOCCAL CONJUGATE PCV 13 08/18/2019 [facility] 07/11/2015 [place] * <C> PNEUMOCOCCAL POLYSACCHARIDE PPV23 05/07/2013 [facility] [facility] PNEUMOCOCCAL, UNSPECIFIED FORMULA* 06/07/2013 [place] * <C> TD (ADULT), 2 LF TETANUS TOXOID,* 12/31/2016 [facility]* <C> TD (ADULT), 5 LF TETANUS TOXOID,* 12/31/2016 [facility] TD(ADULT) UNSPECIFIED FORMULATION [facility]* TDAP 07/22/2007 [facility] - N* ZOSTER LIVE 05/14/2011 [place] * <C> ZOSTER RECOMBINANT 2 01/23/2022 [place] * 1 11/22/2021 [place] * <C> See the Detailed Immunizations Health Summary Component[DIM] for Comments [facility] - Future Appointment: 06/05/2023 10:00 [facility] SERVICE SCHEDULER RTC in one year CPRS chart review/chart [...] Allergy/ADR Data available for this patient [place] [facility] Active and Recently Outpatient Medications [...] APRN, CNP Signed: 06/05/2023 10:58 PING VARGAS [place] ([facility]) Jun 05, 2023 09:59 AM ADVANCE DIRECTIVE: LOCAL TITLE: AD NOTIFICATION AND SCREENING STANDARD TITLE: ADVANCE DIRECTIVE DATE OF NOTE: JUN 05, 2023@09:59 ENTRY DATE: JUN 05, 2023@09:59:26 AUTHOR: TENNILLE WERNER EXP COSIGNER: URGENCY: STATUS: COMPLETED ADVANCE DIRECTIVE NOTIFICATION: Patient was given written notification of the following rights: 1. Accept or refuse any medical treatment. 2. Complete a durable power of contract attorney for health care. 3. Complete a living will. ADVANCE DIRECTIVE SCREENING: Does patient have an Advance Directive? The patient does not have an Advance Directive. The patient does not wish to create an Advance Directive for health care. /coleman/ TENNILLE Anguiano [facility] DATA SECURITY ADMINISTRATOR Signed: 06/05/2023 10:01 TENNILLE WERNER ([facility]) Jun 05, 2023 09:55 AM PRIMARY CARE NURSI SVETLANA NOTE: LOCAL TITLE: [facility] NURSING PROGRESS NOTE STANDARD TITLE: PRIMARY CARE NURSING NOTE DATE OF NOTE: JUN 05, 2023@09:55 ENTRY DATE: JUN 05, 2023@09:55:17 AUTHOR: TENNILLE WERNER EXP COSIGNER: URGENCY: STATUS: COMPLETED [facility] NURSING PROGRESS NOTE Has ADDENDA TYPE OF VISIT: Appointment Check In Type of appointment: In-person appointment REASON FOR VISIT: Annual, CO managed [place] ALLERGIES: DOXAZOSIN (May 14, 2011) VITAL SIGNS: Blood Pressure: 136/91 (06/05/2023 09:52) Pulse: 106 (06/05/2023 09:52) Respiration: 14 (06/05/2023 09:52) Temperature: 97.8 F [36.6 C] (06/05/2023 09:52) Weight: 194.1 lb [88.04 kg] (06/05/2023 09:52) Height: 70.866 in [180.0 cm] (06/05/2023 09:52) BMI: 27.2 O2 Sat: 96% (06/05/2023 09:52) Pain: 0 (06/05/2023 09:52) PAIN SCREEN: Patient is not having significant pain that they wish to discuss with their provider today. 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 The /caregiver was informed that we will continue to [...] hopeless Several days Suicide Screen: C-SSRS Screening [place] Suicide Severity Rating Scale (C-SSRS) screener 1. [...] ulcers, or a wound from a medical territory manager or Patient is bed-confined or a wheelchair-user or Patient requires assistance to transfer/change position No, Skin Screen is Negative Home Abuse/Violence Screen Is your home free of abuse and violence? Yes MOVE! Program Screen Body Mass Index (BMI)= 27.2 [place]: Collection DT Specimen Test Name Result Units Ref Range 06/04/2022 14:10 BLOOD !! HEMOGLOBIN A1C 5.1 % 4.0 - 6.0 !! Indicates COMMENTS AVAILABLE...Refer to Interim Lab Report. [place] Hgb A1C: No data available [place] Hgb A1C: No data available Point of Care Hgb A1C: POC HGB A1C____ Outpatient Nutrition Screen Body Mass Index (BMI)= 27.2 [place]: Collection DT Specimen Test Name Result Units Ref Range 06/04/2022 14:10 BLOOD !! HEMOGLOBIN A1C 5.1 % 4.0 - 6.0 !! Indicates COMMENTS AVAILABLE...Refer to Interim Lab Report. [place] Hgb A1C: No data available [place] Hgb A1C: No data available Point of [...] assistance with outpatient visit? Yadira /coleman/ TENNILLE Anguiano [facility] DATA SECURITY ADMINISTRATOR Signed: 06/05/2023 09:59 06/05/2023 ADDENDUM STATUS: COMPLETED [...] Jun 05, 2023 10:00 Series: Series 1 Legal Support Assistant: [employer] Lot: [id number] Exp Date: Aug 02, 2023 [place]: [id number] Admin Route/Site: INTRAMUSCULAR/RIGHT DELTOID Dosage: 0.3mL Vaccine Information Statement(s): COVID-19 MRNA VACCINE (12+ YRS) VACCINE VIS May 21, 2023 ([facility]) Order By: Policy Administered By: Tennille Werner [...] QUADRIVALENT Date Administered: Jun 05, 2023 10:00 Legal Support Assistant: SANOFI PASTEUR Lot: [id number] Exp Date: Jan 31, 2024 NDC: [id number] Admin Route/Site: INTRAMUSCULAR/LEFT DELTOID Dosage: 0.7mL Vaccine Information Statement(s): INFLUENZA(FLU) VACC(INACTIVATED OR RECOMBINANT)VIS Mar 08, 2021 ([facility]) Order By: Policy Administered By: Tennille Werner /coleman/ TENNILLE Anguiano [facility] DATA SECURITY ADMINISTRATOR Signed: 06/05/2023 10:19 TENNILLE WERNER ([facility])
--- OUTSIDE RECORDS SUMMARY | 2024-02-03 11:14 | XMS_ITS | Continuity of Care Document ---
Author Name [facility] Organization [facility] Care Team Providers Care Machinist Apprentice Wood Name Role Phone [facility] Unavailable Unavailable Problems Combined list of problems from Department of Defense and Veterans Affairs facilities. It does not include entries that were removed or entered in error. Problem Status Onset Date Problem Type Date of Resolution Comments Source AF-Atrial Fibrillation (SCT 50954959) Active Condition [facility] Aneurysm of ascending aorta Active Condition Jan 15, 2021 Entered By: JODIE WALKER Comment: aortic sinus 4.2 cm 07/2020 [place] [facility]) Aortic valve stenosis Active Condition Jan 15, 2021 Entered By: JODIE WALKER Comment: mild per 07/2020 echo [place] ([facility]) Benign prostatic hyperplasia (SNOMED CT 649278208) Active Condition [facility]) Cataract nos Active Condition [facility] Erectile dysfunction (SNOMED CT 887978627) Active Condition [place] ([facility]) Hydrocele of testis Active Condition [place] ([facility]) Hyperlipidemia Active Condition [facility] ([facility]) Hypertension (SNOMED CT 69962549) Active Condition [facility]) Impaired fasting glucose Active Condition [facility]) Long-Term Current Use of Anticoagulant (SCT 781318556) Active Condition [facility] 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 Jun 05, 2021 Entered By: JODIE WALKER Comment: 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 [place] ([facility]) Obesity Active Condition [place] ([facility]) Polyp of colon (SNOMED CT 94221426) Active Condition [place] ([facility]) Alcohol Abuse (ICD-9-CM 305.00) Inactive Condition 06/07/2013 [facility] ([facility]) Anxiety State, unspec Inactive Condition 06/07/2013 [place] ([facility]) Bunion Inactive Condition 05/17/2018 Jun 07, 2 013 Entered By: SAVANNAH BOYD Comment: Right [place] ([facility]) Depressive Disorder NOS Inactive Condition 06/07/2013 [place] ([facility]) Dermatitis * (ICD-9-CM 692.9) Inactive Condition 06/07/2013 [facility] ([facility]) Impotence of organic origin (ICD-9-CM 607.84) Inactive Condition 05/20/2019 [facility] Marijuana Dependence Continuous (ICD-9-CM 304.31) Inactive Condition 06/07/2013 [facility]) Obesity * (ICD-9-CM 278.00) Inactive Condition 06/07/2013 [facility]) Diagnosis: ICD-10-CM I48.91 Unspecified atrial fibrillation Active Diagnosis [facility] Diagnosis: ICD-10-CM Z13.6 Encounter for screening for cardiovascular disorders Active Diagnosis [place] ([facility]) Diagnosis: ICD-10-CM Z79.01 nursing home (current) use of anticoagulants Active Diagnosis [facility] Diagnosis: ICD-10-CM I48.19 Other persistent atrial fibrillation Active Diagnosis [place] ([facility]) Medications Combined list of outpatient medications from Department of Defense and Veterans Affairs facilities.Medications provided include 1) outpatient medications from the last 15 months, and 2) patient-reported medications. Medication Details Route Status Patient Instructions Prescription Expires Prescription Number Last Dispense Date Ordering Provider Order Date Order Qty Source ALPRAZOLAM TAB ALPRAZOL AM TAB Non-VA TAKE 0.5MG IF NEEDED FOR ANXIETY Jul 16, 2017 [facility] Document ed by: DEWAYNE HAWKINS C Document ed at: [facility] ACTIVE JOE HAWKINS 2016 [facility]) APIXABAN 5MG TAB APIXABAN 5MG TAB Active TAKE ONE TABLET BY MOUTH EVERY 12 HOURS TO PREVENT STROKES (REPLACE S WARFARIN ) TO PREVENT STROKES Aug 07, 2023 180 Aug 07, 2024 [id number] December 08, 2023 RAMON SALINAS [facility] ORAL ACTIVE 08/07/2024 [id number] JAI RAJAN 2023 180 [facility] APIXABAN 5MG TAB APIXABAN 5MG TAB Disconti nued TAKE ONE TABLET BY MOUTH EVERY 12 HOURS TO PREVENT STROKES (REPLACE S WARFARIN ) TO PREVENT STROKES Jun 23, 2023 60 Jun 23, 2024 [id number] Aug 17, 2023 SEN LYNNE [facility] ORAL DISCONT INUED (EDIT) 06/23/2024 [id number] POEPPINGSEN L 2022 60 [facility] CYANOCOBALA MIN 1000MCG TAB CYANOCOB ALAMIN 1000MCG TAB Non-VA TAKE ONE TABLET BY MOUTH EVERY DAY Nov 26, 2021 Non-VA Document ed by: JAYDEN WALKER M Document ed at: [facility] ORAL ACTIVE MAYCO WALKER 2021 [facility] DRONEDARONE 400MG TAB DRONEDAR ONE 400MG TAB Active TAKE ONE TABLET BY MOUTH TWICE A DAY FOR ATRIAL FIBRILLA TION FOR ATRIAL FIBRILLA TION Nov 26, 2023 180 Nov 26, 2024 [id number] Nov 26, 2023 GLAUSER, YOAV N [facility] ORAL ACTIVE 11/26/2024 [id number] GLAUSER,N ORA N 2023 180 [facility] DRONEDARONE 400MG TAB DRONEDAR ONE 400MG TAB Disconti nued TAKE ONE TABLET BY MOUTH TWICE A DAY FOR ATRIAL FIBRILLA TION FOR ATRIAL FIBRILLA TION Sep 23, 2023 60 Sep 23, 2024 [id number] Nov 25, 2023 GLAUSER, YOAV N [facility] ORAL DISCONT INUED (EDIT) 09/23/2024 [id number] GLAUSER,N ORA N 2023 60 [facility] FOLIC ACID 1MG TAB FOLIC ACID 1MG TAB Non-VA TAKE ONE TABLET BY MOUTH EVERY DAY Nov 26, 2021 Non-VA Document ed by: JAYDEN WALKER M Document ed at: [facility] ORAL ACTIVE MAYCO WALKER 2021 [facility] METOPROLOL SUCCINATE 25MG TAB,SA METOPROL OL SUCCINAT E 25MG TAB,SA Active TAKE ONE TABLET BY MOUTH EVERY DAY FOR ATRIAL FIBRILLA TION FOR ATRIAL FIBRILLA TION Oct 06, 2023 90 Oct 06, 2024 [id number] December 26, 2023 GLAUSER, YOAV N [facility] ORAL ACTIVE 10/06/2024 [id number] GLAUSER,N ORA N 2023 90 [facility] MULTIVITAMI NS CAP/TAB MULTIVIT AMINS CAP/TAB Non-VA TAKE ONE TABLET BY MOUTH EVERY DAY May 17, 2018 Non-VA Document ed by: JAYDEN WALKER Document ed at: [facility] ORAL ACTIVE MAYCO WALKER 2017 [facility] ROSUVASTATI N CA 5MG TAB ROSUVAST ATIN CA 5MG TAB Active TAKE ONE TABLET BY MOUTH EVERY DAY FOR CHOLESTE ROL FOR CHOLESTE ROL December 14, 2023 90 December 14, 2024 [id number] December 14, 2023 Stella VARGAS [facility] ORAL ACTIVE 12/14/2024 [id number] BERKLEY VARGAS ICIA GILES 2023 90 [facility]) TRIAMCINOLO NE ACETONIDE 0.1% CREAM,TOP TRIAMCIN OLONE ACETONID E 0.1% CREAM,TO P APPLY THIN LAYER TOPICALL Y TWICE A DAY NEEDED TO RASH ON LEGS AND BODY RASHES ON THE LEGS AND BODY Jul 16, 2022 80 Jul 17, 2023 [id number] Jun 05, 2023 Nathen LERNER EBECCA S [facility] TOPICA L 07/17/2023 [id number] SAHIL LERNER PORFIRIO S 2021 80 [facility] Allergies, Adverse Reactions, Alerts Combined list of allergies from Department of Defense and Veterans Affairs facilities. It does not include entries that were removed or entered in error. Substance Category Reaction Severity Reaction type Status Date Reported Comments Source DOXAZOSIN Propensity to adverse reactions to drug (finding) Anxiety active 1 [facility] Immunizations Combined list of available immunizations from the Department of Defense and Veterans Affairs facilities. Immunization Series Date Given Administered By Site Reaction Lot Number CVX Code Drug Dye Weigher Helper Status Comments Source COVID-19 (PFIZER), MRNA, LNP-S, PF, ELEAZAR-SUCROSE, 30 MCG/0.3 ML (AGES 12+ YEARS) 1 2022 SAVANNAH WERNER RIGHT DELTO ID [id number] 309 complet ed [facility] INFLUENZA, HIGH-DOSE, QUADRIVALENT 2022 SAVANNAH WERNER LEFT DELTO ID [id number] 197 complet ed [facility] COVID-19 (PFIZER), MRNA, LNP-S, BIVALENT BOOSTER, PF, 30 MCG/0.3 ML DOSE 1 2021 300 complet ed [facility] INFLUENZA, UNSPECIFIED FORMULATION 2021 88 complet ed [facility] ZOSTER RECOMBINANT 2 2021 187 complet ed [facility] ZOSTER RECOMBINANT 1 2021 187 complet ed [facility] COVID-19 (Beneq), MRNA, LNP-S, PF, 30 MCG/0.3 ML DOSE 3 2020 208 complet ed [facility] INFLUENZA, HIGH-DOSE, QUADRIVALENT 2020 197 complet ed [facility] INFLUENZA, UNSPECIFIED FORMULATION 2020 88 complet ed [facility] COVID-19 (PFIZER), MRNA, LNP-S, PF, 30 MCG/0.3 ML DOSE 2 2020 208 complet ed [facility] COVID-19 (Beneq), MRNA, LNP-S, PF, 30 MCG/0.3 ML DOSE 1 2020 208 complet ed [facility] INFLUENZA, INJECTABLE, QUADRIVALENT, PRESERVATIVE FREE 2019 150 complet ed [facility] INFLUENZA, INJECTABLE, QUADRIVALENT 2019 158 complet ed [facility] PNEUMOCOCCAL CONJUGATE PCV 13 2019 133 complet ed [facility] INFLUENZA, SEASONAL, INJECTABLE, PRESERVATIVE FREE 2018 140 complet ed [facility] INFLUENZA, SEASONAL, INJECTABLE 2018 141 complet ed [facility] INFLUENZA, SEASONAL, INJECTABLE, PRESERVATIVE FREE 2017 140 complet ed [facility] INFLUENZA, HIGH DOSE SEASONAL 2016 135 complet ed [facility] TD (ADULT), 2 LF TETANUS TOXOID, PRESERVATIVE FREE, ADSORBED 2016 09 complet ed per [facility] TD (ADULT), 5 LF TETANUS TOXOID, PRESERVATIVE FREE, ADSORBED 2016 113 complet ed [facility] INFLUENZA, HIGH DOSE SEASONAL 2015 135 complet ed [facility] PNEUMOCOCCAL CONJUGATE PCV 13 2014 133 complet ed [facility] [id number], 4-2016 [facility] INFLUENZA, INJECTABLE, QUADRIVALENT 2014 158 complet ed [facility] INFLUENZA, SEASONAL, INJECTABLE 2014 141 complet ed [facility] INFLUENZA, UNSPECIFIED FORMULATION 2013 88 complet ed pt reporting [facility] INFLUENZA, UNSPECIFIED FORMULATION 2012 88 complet ed [facility] PNEUMOCOCCAL, UNSPECIFIED FORMULATION 2012 109 complet ed [employer] Lot #[id number] Exp. 08/06/2014 [facility] INFLUENZA, SEASONAL, INJECTABLE 2012 141 complet ed [facility] PNEUMOCOCCAL POLYSACCHARID E PPV23 2012 33 complet ed [facility] INFLUENZA, UNSPECIFIED FORMULATION 2011 88 complet ed [facility] INFLUENZA, SEASONAL, INJECTABLE 2011 141 complet ed [facility] INFLUENZA, UNSPECIFIED FORMULATION 2010 88 complet ed [facility] ZOSTER LIVE 2010 121 complet ed [employer] [id number] 03/19/12 [facility] INFLUENZA, SEASONAL, INJECTABLE, PRESERVATIVE FREE 2010 140 complet ed [facility] INFLUENZA, UNSPECIFIED FORMULATION 2009 88 complet ed [facility] TDAP 2006 115 complet ed [facility] INFLUENZA, SEASONAL, INJECTABLE 2004 141 complet ed [facility] TD(ADULT) UNSPECIFIED FORMULATION 2004 139 complet ed [facility] INFLUENZA, SEASONAL, INJECTABLE 2002 141 complet ed [facility] INFLUENZA, SEASONAL, INJECTABLE 2001 141 complet ed [facility] Results Combined list of recent chemistry, hematology and other laboratory results from Department of Defense and Veterans Affairs, ranging from 15 months to all on record, depending upon the facility. Order Name Results Value Reference Range Date Interpretation Specimen Comments Source BASIC METABOLIC PANEL+MG CREATININE [MASS/VOLUM E] IN SERUM OR PLASMA 1.5 mg/dL 0.7 - 1.2 12/01 H Specimen Type: PLASMA No comment entered. Ordering Provider: ESEQUIEL CERDA Report Released Date/Time: Oct 06, 2023 12:51 PM Reporting Lab: [facility] [address] Performing Lab: [facility] [address] [place] [facility] BASIC METABOLIC PANEL+MG UREA NITROGEN [MASS/VOLUM E] IN SERUM OR PLASMA 21 mg/dL 8 - 26 12/01 Specimen Type: PLASMA No comment entered. Ordering Provider: ESEQUIEL CERDA Report Released Date/Time: Oct 06, 2023 12:51 PM Reporting Lab: [facility] [address] Performing Lab: [place] [phone] [place] [facility] BASIC METABOLIC PANEL+MG GLUCOSE [MASS/VOLUM E] IN SERUM OR PLASMA 96 mg/dL 70 - 100 12/01 Specimen Type: PLASMA No comment entered. Ordering Provider: ESEQUIEL CERDA Report Released Date/Time: Oct 06, 2023 12:51 PM Reporting Lab: [facility] [address] Performing Lab: [facility] [address] [place] [facility] BASIC METABOLIC PANEL+MG SODIUM [MOLES/VOLU ME] IN SERUM OR PLASMA 139 mmol/L 136 - 145 12/01 Specimen Type: PLASMA No comment entered. Ordering Provider: ESEQUIEL CERDA Report Released Date/Time: Oct 06, 2023 12:51 PM Reporting Lab: [facility] [address] Performing Lab: [facility] [phone] [place] [facility] BASIC METABOLIC PANEL+MG POTASSIUM [MOLES/VOLU ME] IN SERUM OR PLASMA 4.4 mmol/L 3.5 - 5.1 12/01 Specimen Type: PLASMA No comment entered. Ordering Provider: ESEQUIEL CERDA Report Released Date/Time: Oct 06, 2023 12:51 PM Reporting Lab: [facility] [address] Performing Lab: [facility] [address] [place] [facility] BASIC METABOLIC PANEL+MG CHLORIDE [MOLES/VOLU ME] IN SERUM OR PLASMA 104 mmol/L 98 - 107 12/01 Specimen Type: PLASMA No comment entered. Ordering Provider: ESEQUIEL CERDA Report Released Date/Time: Oct 06, 2023 12:51 PM Reporting Lab: [facility] [address] Performing Lab: [facility] [address] [place] [facility] BASIC METABOLIC PANEL+MG CARBON DIOXIDE, TOTAL [MOLES/VOLU ME] IN SERUM OR PLASMA 26 mmol/L 22 - 29 12/01 Specimen Type: PLASMA No comment entered. Ordering Provider: ESEQUIEL CERDA Report Released Date/Time: Oct 06, 2023 12:51 PM Reporting Lab: [facility] [address] Performing Lab: [facility] [address] [place] [facility] BASIC METABOLIC PANEL+MG CALCIUM [MASS/VOLUM E] IN SERUM OR PLASMA 9.6 mg/dL 8.4 - 10.2 12/01 Specimen Type: PLASMA No comment entered. Ordering Provider: ESEQUIEL CERDA Report Released Date/Time: Oct 06, 2023 12:51 PM Reporting Lab: [facility] [address] Performing Lab: [facility] [address] [place] [facility] BASIC METABOLIC PANEL+MG MAGNESIUM [MASS/VOLUM E] IN SERUM OR PLASMA 1.8 mg/dL 1.6 - 2.6 12/01 Specimen Type: PLASMA No comment entered. Ordering Provider: ESEQUIEL CERDA Report Released Date/Time: Oct 06, 2023 12:51 PM Reporting Lab: [facility] [address] Performing Lab: [facility] [address] [place] [facility] BASIC METABOLIC PANEL+MG ANION GAP IN SERUM OR PLASMA 9 mmol/L 5 - 15 12/01 Specimen Type: PLASMA No comment entered. Ordering Provider: ESEQUIEL CERDA Report Released Date/Time: Oct 06, 2023 12:51 PM Reporting Lab: [facility] [address] Performing Lab: [facility] [address] [place] [facility] BASIC METABOLIC PANEL+MG GLOMERULAR FILTRATION RATE/1.73 SQ M.PREDICTED [VOLUME RATE/AREA] IN SERUM, PLASMA OR BLOOD BY CREATININE- BASED FORMULA (CKD-EPI 2020) 48 60 12/01 L Specimen Type: PLASMA No comment entered. Ordering Provider: ESEQUIEL CERDA Report Released Date/Time: Oct 06, 2023 12:51 PM Reporting Lab: [facility] [phone] Performing Lab: [facility] [address] [place] [facility] ELECTROLY BRII/ANION GAP SODIUM [MOLES/VOLU ME] IN SERUM OR PLASMA 139 mmol/L 136 - 145 10/05 Specimen Type: PLASMA No comment entered. Ordering Provider: ESEQUIEL CERDA Report Released Date/Time: Sep 29, 2023 12:43 PM Reporting Lab: [facility] [address] Performing Lab: [facility] [address] [place] [facility] ELECTROLY BRII/ANION GAP POTASSIUM [MOLES/VOLU ME] IN SERUM OR PLASMA 5.1 mmol/L 3.5 - 5.1 10/05 Specimen Type: PLASMA No comment entered. Ordering Provider: ESEQUIEL CERDA Report Released Date/Time: Sep 29, 2023 12:43 PM Reporting Lab: [facility] [address] Performing Lab: [facility] [address] [place] [facility] ELECTROLY BRII/ANION GAP CHLORIDE [MOLES/VOLU ME] IN SERUM OR PLASMA 104 mmol/L 98 - 107 10/05 Specimen Type: PLASMA No comment entered. Ordering Provider: ESEQUIEL CERDA Report Released Date/Time: Sep 29, 2023 12:43 PM Reporting Lab: [facility] [address] Performing Lab: [facility] [phone] [place] [facility] ELECTROLY BRII/ANION GAP CARBON DIOXIDE, TOTAL [MOLES/VOLU ME] IN SERUM OR PLASMA 26 mmol/L 22 - 29 10/05 Specimen Type: PLASMA No comment entered. Ordering Provider: ESEQUIEL CERDA Report Released Date/Time: Sep 29, 2023 12:43 PM Reporting Lab: [facility] [address] Performing Lab: [facility] [address] [place] [facility] ELECTROLY BRII/ANION GAP ANION GAP IN SERUM OR PLASMA 9 mmol/L 5 - 15 10/05 Specimen Type: PLASMA No comment entered. Ordering Provider: ESEQUIEL CERDA Report Released Date/Time: Sep 29, 2023 12:43 PM Reporting Lab: [facility] [address] Performing Lab: [facility] [address] [place] [facility] UREA NITROGEN UREA NITROGEN [MASS/VOLUM E] IN SERUM OR PLASMA 25 mg/dL 8 - 26 10/05 Specimen Type: PLASMA No comment entered. Ordering Provider: ESEQUIEL CERDA Report Released Date/Time: Sep 29, 2023 12:43 PM Reporting Lab: [facility] [address] Performing Lab: [facility] [address] [place] [facility] CBC LEUKOCYTES [#/VOLUME] IN BLOOD BY AUTOMATED COUNT 4.04 10*3/u L 4.0 - 11.0 10/05 Specimen Type: BLOOD No comment entered. Ordering Provider: ESEQUIEL CERDA Report Released Date/Time: Sep 29, 2023 12:43 PM Reporting Lab: [facility] [address] Performing Lab: [facility] [address] [place] [facility] CBC ERYTHROCYTE S [#/VOLUME] IN BLOOD BY AUTOMATED COUNT 4.65 10*6/u L 4.6 - 6.2 10/05 Specimen Type: BLOOD No comment entered. Ordering Provider: ESEQUIEL CERDA N Report Released Date/Time: Sep 29, 2023 12:43 PM Reporting Lab: [facility] [address] Performing Lab: [facility] [address] [place] [facility] CBC HEMOGLOBIN [MASS/VOLUM E] IN BLOOD 15.4 g/dL 13.5 - 17.9 10/05 Specimen Type: BLOOD No comment entered. Ordering Provider: ESEQUIEL CERDA Report Released Date/Time: Sep 29, 2023 12:43 PM Reporting Lab: [facility] [address] Performing Lab: [facility] [address] [place] [facility] CBC HEMATOCRIT [VOLUME FRACTION] OF BLOOD BY AUTOMATED COUNT 45.1 41 - 54 10/05 Specimen Type: BLOOD No comment entered. Ordering Provider: ESEQUIEL CERDA Report Released Date/Time: Sep 29, 2023 12:43 PM Reporting Lab: [facility] [address] Performing Lab: [facility] [address] [place] [facility] CBC MCV [ENTITIC VOLUME] BY AUTOMATED COUNT 97.0 fL 80 - 100 10/05 Specimen Type: BLOOD No comment entered. Ordering Provider: ESEQUIEL CERDA Report Released Date/Time: Sep 29, 2023 12:43 PM Reporting Lab: [facility] [address] Performing Lab: [facility] [address] [place] [facility] CBC MCH [ENTITIC MASS] BY AUTOMATED COUNT 33.1 pg 27 - 33 10/05 H Specimen Type: BLOOD No comment entered. Ordering Provider: ESEQUIEL CERDA Report Released Date/Time: Sep 29, 2023 12:43 PM Reporting Lab: [facility] [address] Performing Lab: [facility] [address] [place] [facility] CBC MCHC [MASS/VOLUM E] BY AUTOMATED COUNT 34.1 g/dL 32.0 - 37.5 10/05 Specimen Type: BLOOD No comment entered. Ordering Provider: ESEQUIEL CERDA Report Released Date/Time: Sep 29, 2023 12:43 PM Reporting Lab: [facility] [address] Performing Lab: [facility] [address] [place] [facility] CBC PLATELETS [#/VOLUME] IN BLOOD BY AUTOMATED COUNT 164 10*3/u L 150 - 400 10/05 Specimen Type: BLOOD No comment entered. Ordering Provider: ESEQUIEL CERDA Report Released Date/Time: Sep 29, 2023 12:43 PM Reporting Lab: [facility] [address] Performing Lab: [facility] [address] [place] [facility] CBC PLATELET MEAN VOLUME [ENTITIC VOLUME] IN BLOOD BY AUTOMATED COUNT 8.5 fL 7.4 - 10.4 10/05 Specimen Type: BLOOD No comment entered. Ordering Provider: ESEQUIEL CERDA Report Released Date/Time: Sep 29, 2023 12:43 PM Reporting Lab: [facility] [address] Performing Lab: [facility] [address] [facility] CBC ERYTHROCYTE DISTRIBUTIO N WIDTH [RATIO] BY AUTOMATED COUNT 13.2 11.5 - 14.5 10/05 Specimen Type: BLOOD No comment entered. Ordering Provider: ESEQUIEL CERDA Report Released Date/Time: Sep 29, 2023 12:43 PM Reporting Lab: [facility] [address] Performing Lab: [facility] [address] [facility] PROTHROMB IN TIME/INR INR IN PLATELET POOR PLASMA BY COAGULATION ASSAY 1.3 0.8 - 1.1 10/05 H Specimen Type: PLASMA No comment entered. Ordering Provider: ESEQUIEL CERDA Report Released Date/Time: Sep 29, 2023 12:43 PM Reporting Lab: [facility] [address] Performing Lab: [facility] [address] [facility] IS [facility] PROTHROMB IN TIME/INR PROTHROMBIN TIME (PT) 14.7 s 9.4 - 12.5 10/05 H Specimen Type: PLASMA No comment entered. Ordering Provider: ESEQUIEL CERDA N Report Released Date/Time: Sep 29, 2023 12:43 PM Reporting Lab: [facility] [address] Performing Lab: [facility] [address] [place] [facility] CREATININ E(INCLUDE S EGFR) CREATININE [MASS/VOLUM E] IN SERUM OR PLASMA 1.6 mg/dL 0.7 - 1.2 10/05 H Specimen Type: PLASMA No comment entered. Ordering Provider: ESEQUIEL CERDA Report Released Date/Time: Sep 29, 2023 12:43 PM Reporting Lab: [facility] [address] Performing Lab: [facility] [address] [place] [facility] CREATININ E(INCLUDE S EGFR) GLOMERULAR FILTRATION RATE/1.73 SQ M.PREDICTED [VOLUME RATE/AREA] IN SERUM, PLASMA OR BLOOD BY CREATININE- BASED FORMULA (CKD-EPI 2020) 45 60 10/05 L Specimen Type: PLASMA No comment entered. Ordering Provider: ESEQUIEL CERDA Report Released Date/Time: Sep 29, 2023 12:43 PM Reporting Lab: [facility] [address] Performing Lab: [facility] [address] [place] [facility] MAGNESIUM MAGNESIUM [MASS/VOLUM E] IN SERUM OR PLASMA 1.8 mg/dL 1.6 - 2.6 10/05 Specimen Type: PLASMA No comment entered. Ordering Provider: ESEQUIEL CERDA Report Released Date/Time: Sep 29, 2023 12:43 PM Reporting Lab: [facility] [address] Performing Lab: [facility] [address] [place] [facility] CALCIUM CALCIUM [MASS/VOLUM E] IN SERUM OR PLASMA 10.1 mg/dL 8.4 - 10.2 10/05 Specimen Type: PLASMA No comment entered. Ordering Provider: ESEQUIEL CERDA Report Released Date/Time: Sep 29, 2023 12:43 PM Reporting Lab: [facility] [address] Performing Lab: [facility] [address] [place] [facility] ACT PART THROMBO TIME APTT IN PLATELET POOR PLASMA BY COAGULATION ASSAY 33.9 s 25.1 - 36.5 10/05 Specimen Type: PLASMA No comment entered. Ordering Provider: ESEQUIEL CERDA Report Released Date/Time: Sep 29, 2023 12:43 PM Reporting Lab: [facility] [address] Performing Lab: [facility] [address] [facility] [facility] CREATININ E(INCLUDE S EGFR) CREATININE [MASS/VOLUM E] IN SERUM OR PLASMA 1.3 mg/dL 0.7 - 1.2 07/01 H Specimen Type: PLASMA No comment entered. Ordering Provider: DARIUS WILLAMS Report Released Date/Time: Jun 11, 2023 04:56 PM Reporting Lab: [facility] [address] Performing Lab: [facility] [address] [facility] CREATININ E(INCLUDE S EGFR) GLOMERULAR FILTRATION RATE/1.73 SQ M.PREDICTED [VOLUME RATE/AREA] IN SERUM, PLASMA OR BLOOD BY CREATININE- BASED FORMULA (CKD-EPI 2020) 57 60 07/01 L Specimen Type: PLASMA No comment entered. Ordering Provider: DARIUS WILLAMS Report Released Date/Time: Jun 11, 2023 04:56 PM Reporting Lab: [facility] [id number] Performing Lab: [facility] [id number] [facility] Vital Signs Combined list of inpatient and outpatient Vital Signs from Department of Defense and Veterans Affairs, ranging from 12 months to all on record, depending upon the facility. Vital Sign Value Date Comments Source Encounters Combined list of: 1) Encounters from Department of Veterans Affairs facilities going back up to thelast 18 months. 2) Encounters from the Department of Defense facilities going back up to 280 months. Location Location Details Encounter Type Encounter Number Reason For Visit Attending Provider ADM Date DC Date Status Disposition Source [facility] Outpatient Encounter [id number] 04/29 [facility] OFFICE O/P EST HI 40-54 MIN [id number] Diagnos is: ICD-10- CM I48.19 Other persist ent atrial fibrill ation<b r/> NELLY VARGAS [facility] 06/05 [facility] [place] [facility] OFF/OP EST MAY X REQ PHY/QHP [id number] Diagnos is: ICD-10- CM Z13.6 Encount er for screeni ng for cardiov ascular disorde rs
KVNG WERNER A 06/05 [facility] [place] [facility] Outpatient Encounter [id number] 06/08 [place] [facility] QNHP OL DIG ASSMT&MGMT 21+ [id number] Diagnos is: ICD-10- CM Z79.01 nursing home () use of anticoa gulants
POEPJHON,H EATHER L [facility] Outpatient Encounter [id number] 06/22 [facility] ELECTROCAR DIOGRAM COMPLETE [id number] Diagnos is: ICD-10- CM Z13.6 Encount er for screeni ng for cardiov ascular disorde rs
ALEKS SUGGS A 07/01 [facility] OFF/OP CONSLTJ NEW/[place] 55 [id number] Diagnos is: ICD-10- CM I48.91 Unspeci fied atrial fibrill ation<b r/> Antwon NORRIS M 07/01 [place] [facility] [place] [facility] Outpatient Encounter [id number] 07/16 [facility] MTMS BY PHARM EST 15 MIN [id number] Diagnos is: ICD-10- CM Z79.01 buttermaker ( t) use of anticoa gulants
JAI RUSSELL 08/07 [facility] ELECTROCAR DIOGRAM COMPLETE [id number] Diagnos is: ICD-10- CM Z13.6 Encount er for screeni ng for cardiov ascular disorde rs
Yuki ALICEA S 09/23 [place] [facility] [place] [facility] OFF/OP CONSLTJ NEW/[place] HI 55 [id number] Diagnos is: ICD-10- CM I48.91 Unspeci fied atrial fibrill ation<b r/> GLAUSER,NO RA N 09/23 [facility] [place] [facility] QNHP OL DIG ASSMT&MGMT 11- [id number] Diagnos is: ICD-10- CM I48.91 Unspeci fied atrial fibrill ation<b r/> WEST KNIGHT SON R 09/23 [facility] [place] [facility] Outpatient Encounter [id number] 09/25 [facility] [place] [facility] Outpatient Encounter [id number] 09/29 [facility] [place] [facility] Outpatient Encounter [id number] 10/05 [facility] [place] [facility] ELECTROCAR DIOGRAM REPORT [id number] Diagnos is: ICD-10- CM Z13.6 Encount er for screeni ng for cardiov ascular disorde rs
RENUKA ABREU RMA B 10/05 [place] [facility] [place] [facility] Outpatient Encounter [id number] 10/05 [place] [facility] [place] [facility] Outpatient Encounter [id number] 10/05 [place] [facility] [place] [facility] Outpatient Encounter [id number] SANDRA LR 10/05 [facility] [place] [facility] OFFICE O/P EST SF 10 MIN [id number] Diagnos is: ICD-10- CM I48.91 Unspeci fied atrial fibrill ation<b r/> GLAUSER,NO RA N 10/05 [facility] [place] [facility] OFFICE O/P EST LOW 20 MIN [id number] Diagnos is: ICD-10- CM I48.91 Unspeci fied atrial fibrill ation<b r/> GLAUSER,NO RA N 10/05 [facility] [place] [facility] Outpatient Encounter [id number] 10/05 [facility] [place] [facility] Outpatient Encounter [id number] 10/05 [facility] [place] [facility] Outpatient Encounter [id number] 10/05 [facility] [place] [facility] Outpatient Encounter [id number] 10/05 [facility] [place] [facility] Outpatient Encounter [id number] 10/14 [facility] [place] [facility] Outpatient Encounter [id number] 11/08 [facility] [place] [facility] Outpatient Encounter [id number] 11/09 [facility] ([facility]) OFF/OP EST MAY X REQ PHY/QHP [id number] Diagnos is: ICD-10- CM Z13.6 Encount er for screeni ng for cardiov ascular disorde rs
KVNG WERNER N A 12/01 [facility] ([facility] [place] [facility] Outpatient Encounter [id number] LIZY LILLY 12/03 [facility] [place] [facility] OFFICE O/[place] HI 40 MIN [id number] Diagnos is: ICD-10- CM I48.91 Unspeci fied atrial fibrill ation<b r/> GLAUSER,NO RA N 12/10 [facility] Social History Combined list of available smoking, tobacco, and other social history from Department of Defense and Veterans Affairs facilities. Social History Type Response Date Comment Sourc e Tobacco smoking status NHIS VA-TOBACCO QUIT 15 YRS OR MORE 06/05/2023 [place] ([facility]) History of tobacco use VA-TOBACCO FORMER USER 06/05/2023 [facility] ([facility]) History of tobacco use VA-TOBACCO FORMER USER 06/04/2022 [facility] ([facility]) History of tobacco use VA-TOBACCO FORMER USER 06/05/2021 [facility] ([facility]) History of tobacco use VA-TOBACCO FORMER USER 05/23/2020 [facility] ([facility]) History of tobacco use VA-TOBACCO QUIT 1 5 YRS OR MORE 05/20/2019 [facility] ([facility]) History of tobacco use VA-TOBACCO FORMER USER 04/28/2018 [facility] ([facility]) History of tobacco use FORMER TOBACCO US ER 7Y OR GREATER 07/16/2017 [facility] ([facility]) History of tobacco use FORMER TOBACCO US ER 7Y OR GREATER 06/19/2016 [facility] ([facility]) History of tobacco use FORMER TOBACCO US ER 7Y OR GREATER 07/11/2015 [facility] ([facility]) History of tobacco use FORMER TOBACCO US ER 7Y OR GREATER 07/12/2014 [facility] ([facility]) History of tobacco use FORMER TOBACCO US ER 7Y OR GREATER 08/20/2010 [facility] ([facility]) Plan of Care List of future care activities from Department of Veterans Affairs facilities. Additional future care activities may be listed in the Assessment and Plan section. Date/Time Care Activity Care Activity Detail Facili ty 03/15/2024 Laboratory - Chemistry Order LIP ID PANEL,NON-FASTING PLASMA SP ONCE [facility] ([facility])
--- OUTSIDE RECORDS SUMMARY | 2024-02-03 11:15 | XMS_ITS | Encounter Summary ---
Author Name [facility] [place] [facility] [place] Address [address] [place] [address] Care Team Providers Care Manager Metal Name Role Phone NIURKA VARGAS Primary Care Provider Louisa segundo Insurance [...] Galvan's Name Patient's Relationship to Policy Galvan [facility] (WNR) MEDICARE ADVANTAGE [facility] Aug 03, 2017 [id number] LUCAS THRASHER PATIENT MEDICARE (WNR) MEDICARE ([place]) PART A May 03, 2013 PART A [id number] [phone] LUCAS THRASHER PATIENT MEDICARE (WNR) MEDICARE (M) PART B May 03, 2013 PART B [id number] [phone] LUCAS THRASHER PATIENT Selected Encounter This section includes the information on record at [place] for the Encounter. Date/Time Encounter Type Encounter Description Reason Provider Source December 11, 2023 11:00 AM OFFICE O/P EST HI 40 MIN CARDIOLOGY ICD-10-CM I48.91 Unspecified atrial fibrillation YOAV CERDA Encounter Template Text not used by [place] Assessments - Encounter Diagnoses This section includes the primary and secondary diagnoses documented for the Encounter. Date/Time Primary/Secondary Diagnosis Diagnosis Name Provider Source December 11, 2023 01:05 PM PRIMARY Unspecified atrial fibrillation YOAV CERDA [facility] Lab Results: +/- 30 days of the encounter This section includes the Chemistry and Hematology Lab Results on record with [place] for the patient. Radiology Reports and Pathology Reports are provided separately, in subsequent sections. Lab Results This section contains the Chemistry/Hematology Results that were resulted 30 days before or 30 daysafter the date of the Encounter. Date/Time Source Result Type Result - Unit Interpretation Reference Range Comment December 02, 2023 09:53 AM [facility] BASIC METABOLIC PANEL+MG Specimen Type: PLASMA No comment entered. Ordering Provider: YOAV CERDA Report Released Date/Time: Oct 06, 2023 12:51 PM Reporting Lab: [facility] [id number] Performing Lab: [facility] [id number] CREATININE 1.5 mg/dL H 0.7-1.2 UREA NITROGEN [...] Encounter. Date/Time Encounter Note(s) Provider Source December 11, 2023 02:04 PM ADDENDUM: LOCAL TITLE: Addendum STANDARD TITLE: ADDENDUM DATE OF NOTE: DECEMBER 11, 2023@14:04:10 ENTRY DATE: DECEMBER 11, 2023@14:04:11 AUTHOR: KEVIN MORALES COSIGNER: URGENCY: STATUS: COMPLETED Note from Jun 08 follow up results letter: Comments: I have reviewed you labs and [...] minutes of activity per week, as tolerated. Plan: -PCP alerted to review 3. HLD: Patient wanted me to pass along to PACT team he is open to starting statin /es/ Kevin Morales RN [facility] Signed: 12/11/2023 14:05 Receipt Acknowledged By: 12/14/2023 17:10 /coleman/ Niurka Vargas APRN, CNP --- Original Document --- 12/11/23 CARDIOLOGY ELECTROPHYSIOLOGY NOTE: CARDIAC ELECTROPHYSIOLOGY [facility] NOTE [facility] Note Patient verbally consented to video appointment There was no connection problems Patients current location (home address on file) An Emergency Contact number was obtained and confirmed CC: F/U AFib HPI: Patient is a 73 year-old male with past medical history including BPH, hyperlipidemia, HTN (not on any meds), anxiety, 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 He was contacted today over [facility] for f/u after DCCV on 10/06/23 (delayed due to illness at prior appt). He reports feeling much improvement in his stamina since the cardioversion - able to mow the lawn and do weeding so much easier now. He still gets fatigued at times, but states I am 73 after all. He denies current chest pain/pressure, palpitations, lightheadedness, dizziness, presyncope, syncope, orthopnea, PND, or LE edema. PAST CARDIAC/RELEVANT MEDICAL HISTORY: Active problems - Computerized Problem List is the source for the followin. Benign prostatic hyperplasia (SNOMED CT 387657559) 2. Polyp of colon (SNOMED CT 04022960) 3. Hypertension (SNOMED CT 08891369) 4. Cataract nos 5. Hydrocele of testis 6. Erectile dysfunction (SNOMED CT 809586915) 7. Impaired fasting glucose 8. Hyperlipidemia 9. Obesity 10. Aortic valve stenosis - mild per 07/2020 echo 11. 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 AF-Atrial Fibrillation (SCT 14449593) 14. Long-Term Current Use of Anticoagulant (SCT 203064792) PAST SOCIAL HISTORY: *Tobacco: denies, quit over 30 years ago *ETOH: drinking 3-4 per day, once in awhile more *Illicits: smoking marijuana daily *Lives with , in 80 -----PRIOR CARDIAC TESTING----- -- Transthoracic echocardiogram (08/28/23): [...] is dilated. -- Stress Echocardiogram (03/2022) - [facility]: 1. Maximum stress test with 96.5% of [...] dimensionless index of 0.39. -- Latest EKG (12/02/23): Sinus bradycardia 57 bpm QTc 416 msecs --- ALLERGIES DOXAZOSIN (May 14, 2011) FACILITY ALLERGY/ADR -------- No Remote Allergy/ADR Data available for this patient [facility] DOXAZOSIN MEDICATIONS Active and Recently Outpatient Medications (excluding Supplies): Active Outpatient Medications Status 1) APIXABAN 5MG TAB TAKE ONE TABLET BY MOUTH EVERY 12 ACTIVE HOURS TO PREVENT STROKES (REPLACES WARFARIN) 2) DRONEDARONE 400MG TAB TAKE ONE TABLET BY MOUTH TWICE ACTIVE A DAY FOR ATRIAL FIBRILLATION 3) METOPROLOL SUCCINATE 25MG SA TAB TAKE ONE TABLET BY ACTIVE MOUTH EVERY DAY FOR ATRIAL FIBRILLATION Active Non-VA Medications Status 1) Non-VA ALPRAZOLAM TAB 0.5MG IF NEEDED FOR ANXIETY ACTIVE 2) Non-VA CYANOCOBALAMIN 1000MCG TAB 1000MCG MOUTH EVERY ACTIVE DAY 3) Non-VA FOLIC ACID 1MG TAB 1MG MOUTH EVERY DAY ACTIVE 4) Non-VA MULTIVITAMIN CAP/TAB 1 TABLET MOUTH EVERY DAY ACTIVE 7 Total Medications No Active Remote Medications for this patient LABS SODIUM 139 (12/02/23) POTASSIUM 4.4 (12/02/23) MAGNESIUM 1.8 (12/02/23) UREA NITROGEN 21 (12/02/23) CREATININE 1.5 H (12/02/23) GLUCOSE 96 (12/02/23) WBC 4.04 (10/06/23) HGB 15.4 (10/06/23) PLT 164 (10/06/23) Collection DT Specimen Test Name Result Units [...] 10:54 PLASMA ALT/SGPT 21 U/L Ref: <=55 ASSESSMENT/PLAN 1. Persistent atrial fibrillation: Dx 04/2023, incidental finding during eye appt of tachycardia and presented to [facility], symptomatic for months prior with BRANDON/fatigue. Now s/p DCCV/dronedarone initiation 10/06/23 -- Maintaining sinus rhythm on recent EKG 12/02/23 and symptomatically improved with more energy and less BRANDON -- Continue dronedarone, tolerating without s/e's, QTc WNL, will monitor labs -- We discussed PVI ablation but prefers medical therapy for now -- Continue metoprolol succinate 25 mg daily for rate control in the event of recurrent AFib -- CHADSVasc score is 3 (age++, HTN) on apixaban with no bleeding concerns -- RFs for recurrence: Discussed alcohol moderation extensively and offered LORI evaluation but he is currently declining. BPs controlled at home, exercising regularly by taking care of fram 2. Valvular disease - moderate , moderate MR, moderate to severe TR: -- Continue to monitor 3. HLD: Patient wanted me to pass along to PACT team he is open to starting statin Follow up: 6 months or sooner as needed. Patient was given my contact information and encouraged to contact me if he has questions or concerns that arise in the interim. Time spent: 25 minutes /coleman/ YOAV CERDA PA-C PHYSICIAN SENIOR CONSTRUCTION ESTIMATOR Signed: 12/11/2023 13:05 Receipt Acknowledged By: 12/11/2023 14:02 /coleman/ Kevin Morales RN [facility] for ANTOINE Segundo KEVIN GONZALEZ [facility] December 11, 2023 11:19 AM CARDIOLOGY DIAGNOSTIC STUDY NOTE: LOCAL TITLE: CARDIOLOGY ELECTROPHYSIOLOGY NOTE STANDARD TITLE: CARDIOLOGY DIAGNOSTIC STUDY NOTE DATE OF NOTE: DECEMBER 11, 2023@11:19 ENTRY DATE: DECEMBER 11, 2023@11:19:47 AUTHOR: YOAV CERDA EXP COSIGNER: URGENCY: STATUS: COMPLETED CARDIOLOGY ELECTROPHYSIOLOGY NOTE Has ADDENDA CARDIAC ELECTROPHYSIOLOGY [facility] NOTE [facility] Note Patient verbally consented to video appointment There was no connection problems Patients current location (home address on file) An Emergency Contact number was obtained and confirmed CC: F/U AFib HPI: Patient is a 73 year-old male with past medical history including BPH, hyperlipidemia, HTN (not on any meds), anxiety, 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 He was contacted today over [facility] for f/u after DCCV on 10/06/23 (delayed due to illness at prior appt). He reports feeling much improvement in his stamina since the cardioversion - able to mow the lawn and do weeding so much easier now. He still gets fatigued at times, but states I am 73 after all. He denies current chest pain/pressure, palpitations, lightheadedness, dizziness, presyncope, syncope, orthopnea, PND, or LE edema. PAST CARDIAC/RELEVANT MEDICAL HISTORY: Active problems - Computerized Problem List is the source for the followin. Benign prostatic hyperplasia (SNOMED CT 452795179) 2. Polyp of colon (SNOMED CT 22702846) 3. Hypertension (SNOMED CT 91037049) 4. Cataract nos 5. Hydrocele of testis 6. Erectile dysfunction (SNOMED CT 603106032) 7. Impaired fasting glucose 8. Hyperlipidemia 9. Obesity 10. Aortic valve stenosis - mild per 07/2020 echo 11. 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 AF-Atrial Fibrillation (SCT 19386515) 14. Long-Term Current Use of Anticoagulant (SCT 047862709) PAST SOCIAL HISTORY: *Tobacco: denies, quit over 30 years ago *ETOH: drinking 3-4 per day, once in awhile more *Illicits: smoking marijuana daily *Lives with , in 80 -----PRIOR CARDIAC TESTING----- -- Transthoracic echocardiogram (08/28/23): [...] is dilated. -- Stress Echocardiogram (03/2022) - [facility]: 1. Maximum stress test with 96.5% of [...] dimensionless index of 0.39. -- Latest EKG (12/02/23): Sinus bradycardia 57 bpm QTc 416 msecs --- ALLERGIES DOXAZOSIN (May 14, 2011) FACILITY ALLERGY/ADR -------- No Remote Allergy/ADR Data available for this patient [facility] DOXAZOSIN MEDICATIONS Active and Recently Outpatient Medications (excluding Supplies): Active Outpatient Medications Status 1) APIXABAN 5MG TAB TAKE ONE TABLET BY MOUTH EVERY 12 ACTIVE HOURS TO PREVENT STROKES (REPLACES WARFARIN) 2) DRONEDARONE 400MG TAB TAKE ONE TABLET BY MOUTH TWICE ACTIVE A DAY FOR ATRIAL FIBRILLATION 3) METOPROLOL SUCCINATE 25MG SA TAB TAKE ONE TABLET BY ACTIVE MOUTH EVERY DAY FOR ATRIAL FIBRILLATION Active Non-VA Medications Status 1) Non-VA ALPRAZOLAM TAB 0.5MG IF NEEDED FOR ANXIETY ACTIVE 2) Non-VA CYANOCOBALAMIN 1000MCG TAB 1000MCG MOUTH EVERY ACTIVE DAY 3) Non-VA FOLIC ACID 1MG TAB 1MG MOUTH EVERY DAY ACTIVE 4) Non-VA MULTIVITAMIN CAP/TAB 1 TABLET MOUTH EVERY DAY ACTIVE 7 Total Medications No Active Remote Medications for this patient LABS SODIUM 139 (12/02/23) POTASSIUM 4.4 (12/02/23) MAGNESIUM 1.8 (12/02/23) UREA NITROGEN 21 (12/02/23) CREATININE 1.5 H (12/02/23) GLUCOSE 96 (12/02/23) WBC 4.04 (10/06/23) HGB 15.4 (10/06/23) PLT 164 (10/06/23) Collection DT Specimen Test Name Result Units [...] 10:54 PLASMA ALT/SGPT 21 U/L Ref: <=55 ASSESSMENT/PLAN 1. Persistent atrial fibrillation: Dx 04/2023, incidental finding during eye appt of tachycardia and presented to [facility], symptomatic for months prior with BRANDON/fatigue. Now s/p DCCV/dronedarone initiation 10/06/23 -- Maintaining sinus rhythm on recent EKG 12/02/23 and symptomatically improved with more energy and less BRANDON -- Continue dronedarone, tolerating without s/e's, QTc WNL, will monitor labs -- We discussed PVI ablation but prefers medical therapy for now -- Continue metoprolol succinate 25 mg daily for rate control in the event of recurrent AFib -- CHADSVasc score is 3 (age++, HTN) on apixaban with no bleeding concerns -- RFs for recurrence: Discussed alcohol moderation extensively and offered LORI evaluation but he is currently declining. BPs controlled at home, exercising regularly by taking care of fram 2. Valvular disease - moderate , moderate MR, moderate to severe TR: -- Continue to monitor 3. HLD: Patient wanted me to pass along to PACT team he is open to starting statin Follow up: 6 months or sooner as needed. Patient was given my contact information and encouraged to contact me if he has questions or concerns that arise in the interim. Time spent: 25 minutes /coleman/ YOAV CERDA PA-C PHYSICIAN SENIOR CONSTRUCTION ESTIMATOR Signed: 12/11/2023 13:05 Receipt Acknowledged By: 12/11/2023 14:02 /coleman/ Kevin Morales RN [facility] for ANTOINE MON[place]ÑO 12/11/2023 ADDENDUM STATUS: COMPLETED Note from Jun 08 follow up results letter: Comments: I have reviewed you labs and [...] minutes of activity per week, as tolerated. Plan: -PCP alerted to review 3. HLD: Patient wanted me to pass along to PACT team he is open to starting statin /coleman/ Kevin Morales RN [facility] Signed: 12/11/2023 14:05 Receipt Acknowledged By: * AWAITING SIGNATURE * NIURKA VARGAS NORA N [facility]
--- OUTSIDE RECORDS SUMMARY | 2024-02-03 11:15 | XMS_ITS ---
Author Organization [facility] Address [address] [place] [address] Care Team Providers Care Poly Packer And Heat Sealer Name Role Phone Unavailable Unavailable Unavailable Surgery Details Not on file Complications Check Surgery Details section. Procedure Estimated Blood Loss Check Surgery Details section. Procedure Findings Check Surgery Details section. Procedure Specimens Taken Check Surgery Details section.
--- OUTSIDE RECORDS SUMMARY | 2024-02-03 11:15 | XMS_ITS ---
Author Organization [facility] Address [address] [place] [address] Care Team Providers Care Neuropsychiatric Aide Name Role Phone Elsewhere, Pcp Primary Care [...] On Elapsed Days Session Dose Total Dose [id number] 09/28/2020 46 200 cGy 7,000 cGy
--- OUTSIDE RECORDS SUMMARY | 2024-02-03 11:15 | XMS_ITS | Encounter Summary ---
Author Organization [facility] Address [address] [place] [address] Care Team Providers Care [employer] Executive Director Name Role Phone Elsewhere, Pcp Primary Care Provider Unavailabl e Reason for Visit * Reason Onset Date Comments Pre-visit Intake 11/10/2023 Encounter Details Date Type Department Care Team (Latest Contact Info) Description 11/10/2023 10:00 AM CDT Clinical Communication Virtual Review in [place], [place] [address] [place] [address] Pre-visit Intake Social History Tobacco Use Types Packs/Day Years Used Date Smoking Tobacco: Former Cigarettes Q uit: 1997 Passive Smoke Exposure: Past Smokeless Tobacco: Never Tobacco Cessation:Counseling Given: Not Answered Passive Exposure Comments:Mother Nutrition Answer Date Recorded [...] as of this encounter Plan of Treatment Not on file documented as of this encounter Visit Diagnoses Not on filedocumented in this encounter Care Teams [employer] Executive Director Relationship Specialty Start Date End Date Elsewhere, Pcp PCP - General Internal Medicine 01/15/22 documented as of this encounter
--- OUTSIDE RECORDS SUMMARY | 2024-02-03 11:15 | XMS_ITS | Clinical Summary ---
Author Organization [facility] Address [place], [place] [address] Care Team Providers Care Dipping Machine Operator Name Role Phone Amador Chambers DO Primary Care Provider [phone] Allergies Active Allergy Reactions Criticality Noted Date Comments Doxazosin Anxiety 05/14/2011 Medications Medication Sig Dispensed Refills Start Date End Date Status ASPIRIN 81 MG TAB take 1 tablet (81mg) by oral route once daily 0 0 09/08/2008 Active cholecalciferol, vitamin D3, (VITAMIN D3 ORAL) Take by mouth once daily. Active ascorbic acid (VITAMIN C ORAL) Take by mouth once daily. Active Lactobacillus acidophilus (PROBIOTIC ORAL) Take by mouth once daily. Active acetaminophen (TYLENOL ORAL) Take by mouth once daily if needed. Active Lidocaine-Hydrocorti sone Zaid 3-0.5 % creaIndications:Hemo rrhoids, external Insert rectally 2 times daily if needed (topically for hemorrhoids). 1 Tube 09/05/2020 Active lidocaine 4 % topical gelIndications:Hemor rhoids, external Apply topically to affected area(s). 1 Tube 09/06/2020 Active lidocaine 5 % oint topical ointmentIndications: Hemorrhoids, external Apply rectally to hemorrhoid twice daily as needed 1 Tube 09/06/2020 Active hydrocortisone (HYTONE) 2.5 % ointmentIndications: Hemorrhoids, external Apply topically to affected area(s) 2 times daily if needed for Itching. Mix with lidocaine 1 Tube 09/06/2020 Active multivitamin chew Chew 1 Tablet by mouth. Active OMEGA-3 FATTY [id number] ORAL Take by mouth. Ac tive ALPRAZolam (XANAX) 1 mg tabletIndications:An xiety TAKE 1 TABLET BY MOUTH 2 TIMES DAILY IF NEEDED. DONT TAKE WITH LORAZEPAM (USED FOR NAUSEA NEEDED) 60 Tablet 03/14/2021 Active Active Problems Problem Noted Date [...] MDV (Flu Clinic Only) 05/03/2020 COVID-19 vaccine (PeoplePerHour.com 30mcg/0.3mL) PF, MDV 11/30/2020,11/09/2020 Influenza, IIV3 (Age [...] Height 182.9 cm (6') 07/30/2020 7:03 AM CORPORATE [facility]GAL Body Mass Index 23.92 07/30/2020 7:03 AM CORPORATE [facility]GAL Plan of Treatment Health Maintenance Due Date Last Done Comments Hepatitis C screening for ag e 18-79 1966 Zoster (shingles) series for age 50+ (2 of 3) 07/09/2011 05/14/2011 Medicare Wellness for age 65+ 2013 Depression screening for age 12+ 08/18/2020 08/18/2019, 03/16/2019, 12/31/2016, Additional history exists BMI (ht and wt on same day) for age 18+ 07/24/2021 07/24/2020, 07/13/2020, 08/18/2019, Additional history exists COVID-19 vaccine series (2022- season) 2023 06/05/2023, 06/07/2021, 11/30/2020, Additional history exists Influenza for age 65+ 04/03/2024 05/03/2020 , 05/18/2019, 05/25/2015, Additional history exists Colonoscopy through age 75 07/19/202407/19, 11/07/2014, 08/03/2009 Lipids for age 45-75 08/18/2024 08/18/2019, 01/28/2018, 07/16/2012, Additional history exists Tetanus booster 12/31/2026 12/31/2016, 12/03, 07/22/2007, Additional history exists Tdap Completed 07/22/2007 Pneumococcal series for age 65+ Completed 08/18/2019, 07/11/2015, 07/04/2015, Additional history exists Procedures Procedure Name Priority Date/Time Associated Diagnosis Comments LIPID PANEL W REFLEX MEASURED LDL Routine 08/18/2019 9:15 AM CORPORATE [facility] Hyperlipidemia, unspecified hyperlipidemia type SCAN-COLONOSCOPY 07/19/2019 12:0 0 AM CORPORATE [facility] from Last 3 Months or Most Recently Relevant to Health Maintenance Results * (ABNORMAL) LIPID PANEL W REFLEX MEASURED LDL (08/18/2019 9:15 AM CORPORATE [facility]) CHOLESTEROL,TOTAL 203(H) 100 - 199 mg/dL 08/18/2019 2:27 PM CORPORATE [facility]GAL [facility] TRIGLYCERIDES 80 <150 mg/dL 08/18/2019 2:27 PM [facility] HDL CHOLESTEROL 58 >40 mg/dL 0 2:27 PM [facility]POR[facility] NON-HDL CHOLESTEROL 145(H) <145 mg/dl 08/18/2019 2:27 PM CORPORATE PAR[facility]GAL [facility] CHOL/HDL RATIO 3.50 <4.50 08/18/2019 2:27 PM CORPORATE [facility] LDL CHOLESTEROL 129 <=130 mg/dL 08/18/2019 2:27 PM [facility]PORATE [facility] PROVIDER ORDERED STATUS RANDOM 08/18/2019 2:27 PM CORPORATE [facility]GAL [facility] Blood BLOOD SPECIMEN / Unknown Venipuncture / Unknown 08/18/2019 9:15 AM CORPORATE [facility]GAL 08/18/2019 9:15 AM CORPORATE [facility]GAL Travon Fuller MD CHEMISTRY [facility] [address] [place] [address], * SCAN-COLONOSCOPY (07/19/2019 12:00 AM CORPORATE [facility]GAL) Scanner OTHER from Last 3 Months or Most Recently Relevant to Health Maintenance Advance Directives * Full Code (Latest Code Status on File) Date Activated Date Inactivated Comments 07/30/2020 6:59 AM 07/30/2020 4:25 PM Question Answer Comments Code Status Discussion: Not Discussed Care Teams Dipping Machine Operator Relationship Specialty Start Date End Date Amadro [place] [place] [address] PCP - General Family Practice 01/18/21
--- OUTSIDE RECORDS SUMMARY | 2024-02-03 11:15 | XMS_ITS | Encounter Summary ---
Author Name [facility] Organization [facility] [place] Address [address] [place] [address] Care Team Providers Care Occupational Therapy Director Name Role Phone PING VARGAS Primary Care [...] Name Patient's Relationship to Policy Galvan [employer] [facility] (WNR) MEDICARE ADVANTAGE [facility] (WNR) Aug 03, 2017 [id number] LUCAS THRASHER PATIENT MEDICARE (WNR) MEDICARE (M) PART A May 03, 2013 PART A [id number] [phone] LUCAS THRASHER PATIENT MEDICARE (WNR) MEDICARE (M) PART B May 03, 2013 PART B [id number] [phone] LUCAS THRASHER PATIENT Selected Encounter This section includes the information on record at [place] for the Encounter. Date/Time Encounter Type Encounter Description Reason Provider Source December 04, 2023 01:27 PM Outpatient Encounter ADMIN PAT ACTIVTIES (MASNONCT) JAQAUN LILLY Encounter Template Text not used by [place] Plan of Treatment: Future Appointments (+ 6 months) and Future Tests (+/- 45 days) The Plan of Treatment section includes future care activities for the patient from all [place] treatmentfacilities. This section includes future appointments and future orders which are active, pending or scheduled. Future Appointments This section includes appointments that were scheduled to occur 6 months from the date of the Encounter, up to a maximum of 20 appointments. The data comes from all [place] treatment facilities. Appointment Date/Time Appointment Type Appointme nt Facility Name December 11, 2023 11:00 AM AMBULATORY - MEDICINE [facility] Lab Results: +/- 30 days of the encounter This section includes the Chemistry and Hematology Lab Results on record with [place] for the patient. Radiology Reports and Pathology Reports are provided separately, in subsequent sections. Lab Results This section contains the Chemistry/Hematology Results that were resulted 30 days before or 30 daysafter the date of the Encounter. Date/Time Source Result Type Result - Unit Interpretation Reference Range Comment December 02, 2023 09:53 AM [facility] BASIC METABOLIC PANEL+MG Specimen Type: PLASMA No comment entered. Ordering Provider: YOAV CERDA Report Released Date/Time: Oct 06, 2023 12:51 PM Reporting Lab: [facility] [id number] Performing Lab: [facility] [id number] CREATININE 1.5 mg/dL H 0.7-1.2 UREA NITROGEN [...] Encounter. Date/Time Encounter Note(s) Provider Source December 04, 2023 01:27 PM TELEHEALTH NOTE: LOCAL TITLE: TELEHEALTH TECHNOLOGY SCREENING (TTS) STANDARD TITLE: TELEHEALTH NOTE DATE OF NOTE: DECEMBER 04, 2023@13:27 ENTRY DATE: DECEMBER 04, 2023@13:27:45 AUTHOR: JAQUAN LILLY MA EXP COSIGNER: URGENCY: STATUS: COMPLETED agrees to [facility] ([facility]) and has capability to complete a VVC visit. [place] has completed a test call or a VVC visit on his/her personal device. E-mail: [email or web address] Phone (texting): Device(s) they can use: Smart Phone (Android), Other: Will utilize daughter's phone for vvc visits /es/ JOLANTA LILLY LPN LPN Signed: 12/04/2023 13:29 JAQUAN LILLY [facility]
--- OUTSIDE RECORDS SUMMARY | 2024-02-03 11:15 | XMS_ITS | Encounter Summary ---
Author Organization [facility] Address [address] [place] [address] Care Team Providers Care Food Safety Auditor Name Role Phone Elsewhere, Pcp Primary Care Provider Unavailabl e Encounter Details Date Type Department Care Team (Late st Contact Info) Description 11/12/2023 11:30 AM CDT Ancillary Procedure Department of Oncology [...] on file documented as of this encounter Procedures Procedure Name Priority Date/Time Associated Diagnosis Comments ONCOLOGY IMAGE EXAM Routine 11/12/2023 1 1:30 AM CDT documented in this encounter Results * Video-Oral Cavity-Oncology Image Exam (11/12/2023 11:30 AM CDT) 11/12/2023 11:3 0 AM CDT Narrative IIMS - 11/12/2023 1:25 PM CDT This order has been created and auto-finalized to support the import of images acquired without order. The clinical documentation to support these images can be found on the encounter that produced images. Provider Not In System IMG NON RAD IMAGI NG PROCEDURES IIMS NA documented in this encounter Visit Diagnoses Not on filedocumented in this encounter Care Teams Food Safety Auditor Relationship Specialty Start Date End Date Elsewhere, Pcp PCP - General Internal Medicine 01/15/22 documented as of this encounter
--- OUTSIDE RECORDS SUMMARY | 2024-02-03 11:15 | XMS_ITS | Referral Summary ---
Author Organization [facility] Address [address] [place] [address] Care Team Providers Care Hearing Aid Assembly Supervisor Name Role Phone Elsewhere, Pcp Primary Care Provider Unavailabl e Source Comments Patient records contain information from all sites at [facility]. For routine questions regarding patient records, call [phone] during business hours, M-F 8:00 AM - 5:00 PM Central Time. Record requests for emergency care only can be directed to [phone] at any time.[facility] Encounters Date Type Department Care Team Description 11/12/2023 11:30 AM CDT Ancillary Procedure Department of Oncology 11/12/2023 11:07 AM CDT - 11/12/2023 3:32 PM CDT Hospital Encounter Department of Radiation Oncology in [place], [place] [address] [place] [phone] Serena Berger M.D. 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) 11/10/2023 10:00 AM CDT Clinical Communication Virtual Review in [place], [place] [address] [place] [address] Pre-visit Intake from Last 3 Months Allergies Active Allergy Reactions Criticality Noted Date Comments Doxazosin Anxiety 05/14/2011 Medications Medication Sig Dispensed Refills Start Date End Date Status ALPRAZolam (XANAX) 1 mg tablet as needed. 06/25/2020 Active cholecalciferol (VITAMIN D3) 10 mcg/mL (400 Unit/mL) drops Take by mouth. Active ASCORBIC ACID, VITAMIN C, ORAL Take by mouth. Activ e multivitamin chewable tablet Chew 1 tablet daily. Active acetaminophen (TYLENOL) 325 mg tablet Take 325 mg by mouth every 4 (four) hours as needed for pain. Active magnesium 200 mg tablet Take 400 mg by mouth every morning before breakfast. Active atorvastatin (LIPITOR) 20 mg tablet 10 mg. 11/26/2021 Active cyanocobalamin (VITAMIN B12) 1,000 mcg tablet Take 1,000 mcg by mouth daily. TAKE 1 TABLET BY MOUTH EVERY DAY 08/28/2022 Active fluocinonide (LIDEX) 0.05 % ointment APPLY [...] TO? TRIAMCINOLONE OR STOP. RESTART NEEDED. 07/16/2022 [facility] 08/05/2022 07/16/2022 Active folic acid 1 mg tablet Take 1,000 mcg by mouth daily. 08/28/2022 Active loratadine (CLARITIN) 10 mg tablet Take 1 tablet by mouth daily. 11/22/2021 Active triamcinolone (KENALOG) 0.1 % cream APPLY THIN LAYER TOPICALLY TWICE A DAY NEEDED TO RASH ON LEGS AND BODY 07/16/2022 Active fluoride, sodium, (PreviDent) 1.1 % gel dental gel Apply a thin ribbon to teeth with a toothbrush or use of dental trays for at least 1 minute preferably at bedtime: expectorate gel and do not eat, drink, or rinse for 30 minutes 100 mL 11 11/12/2022 Active metoprolol succinate (TOPROL-XL) 25 mg 24 hr tablet Take 1 tablet by mouth daily. 04/29/2023 Active apixaban (ELIQUIS) 5 mg tablet Take 5 mg by mouth 2 (two) times a day. 08/07/2023 Active dronedarone (MULTAQ) 400 mg tablet Take 400 mg by mouth 2 (two) times a day with meals. 09/23/2023 Active metoprolol succinate (TOPROL-XL) 25 mg 24 hr tablet Take 25 mg by mouth daily. 10/06/2023 Active Active Problems Problem Noted Date Diagnosed [...] Date Smoking Tobacco: Former Cigarettes Q uit: 1998 Passive Smoke Exposure: Past Smokeless Tobacco: Never [...] Sign Reading Time Taken Comments Blood Pressure 123/75 11/12/2023 11:26 AM CDT Pulse 59 11/12/2023 11:26 AM CDT Temperature 37.1 ??C (98.8 ??F) 11/12/2023 11:26 AM C DT Respiratory Rate 18 01/15/2022 11:51 AM CDT Oxygen Saturation 99% 04/23/2022 12:48 PM CDT Inhaled Oxygen Concentration - - Weight 89.5 kg (197 lb 5 oz) 11/12/2023 11:26 AM CDT Height 181.5 cm (5' 11.46) 08/07/2020 9:[address] Body Mass Index 27.17 08/07/2020 9:56 AM 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 If available, original interpretation can be found on the Media Tab in Chart Review, in Document Viewer, as an image in QREADS or as an Addendum. If a re-interpretation or overread is required please follow defined workflow.?? Provider Not In System IMG NM PROCEDURES IIMS NA * Video-Oral Cavity-Oncology Image Exam (11/12/2023 11:30 [...] NON RAD IMAGI NG PROCEDURES IIMS NA from Last 3 Months or Most Recently Relevant to Health Maintenance Care Teams Hearing Aid Assembly Supervisor Relationship Specialty Start Date End Date Elsewhere, Pcp PCP - General Internal Medicine 01/15/22
--- OUTSIDE RECORDS SUMMARY | 2024-02-03 11:15 | XMS_ITS | Encounter Summary ---
Author Organization [facility] Address [address] [place] [address] Care Team Providers Care Biology Tutor Name Role Phone Elsewhere, Pcp Primary Care Provider Unavailabl e Reason for Referral * Outpatient (Routine) - Authorized Specialty Diagnoses / Procedures Referred By Contac t Referred To Contact Radiation Oncology Dione Mobley P.A.-C., M.SDarwin [address] [place] [phone] Serena Berger M.D. [address] [place] [phone] Referral ID Status Reason Start Date Expiration Date V isits Requested Visits Authorized [id number] Authorized 11/12/2023 05/13/2025 1 1 Scheduling Instructions Please get recent records from [facility] (Dr. Méndez, labs, imaging, etc.) within the past 6 months. * Outpatient (Routine) - Closed Specialty Diagnoses / Procedures Referred By Contac t Referred To Contact Radiation Oncology Kayla Hannah APRN, C.N.P., D.N.PDarwin [address] [place] [phone] Serena Berger M.D. [address] [place] [phone] Referral ID Status Reason Start Date Expiration Date Visits Re quested Visits Authorized [id number] Closed 05/06/2023 05/05/2026 1 1 Reason for Visit * Outpatient (Routine) - Closed Specialty Diagnoses / Procedures Referred By Contsandra t Referred To Contact Radiation Oncology Kayla Hannah APRN C.N.PDarwin, D.N.PDarwin [address] [place] [phone] Serena Berger M.D. [address] [place] [phone] Referral ID Status Reason Start Date Expiration Date Visits Re quested Visits Authorized [id number] Closed 05/06/2023 05/05/2026 1 1 Encounter Details Date Type Department Care Team (Latest Contact Info) Description 11/12/2023 11:07 AM CDT - 11/12/2023 3:32 PM CDT Hospital Encounter Department of Radiation Oncology in [place], [place] [address] [place] [phone] Serena Berger M.D. 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 ALPRAZolam (XANAX) 1 mg tablet as needed. 06/25/2020 apixaban (ELIQUIS) 5 mg tablet Take 5 mg by mouth 2 (two) times a day. 08/07/2023 ASCORBIC ACID, VITAMIN C, ORAL Take by mouth. atorvastatin (LIPITOR) 20 mg tablet 10 mg. 11/26/2021 cholecalciferol (VITAMIN D3) 10 mcg/mL (400 Unit/mL) drops Take by mouth. cyanocobalamin (VITAMIN B12) 1,000 mcg tablet Take 1,000 mcg by mouth daily. TAKE 1 TABLET BY MOUTH EVERY DAY 08/28/2022 dronedarone (MULTAQ) 400 mg tablet Take 400 mg by mouth 2 (two) times a day with meals. 09/23/2023 fluocinonide (LIDEX) 0.05 % ointment APPLY MODERATE [...] TO? TRIAMCINOLONE OR STOP. RESTART NEEDED. 07/16/2022 [facility] 08/05/2022 07/16/2022 fluoride, sodium, (PreviDent) 1.1 % gel dental gel Apply a thin ribbon to teeth with a toothbrush or use of dental trays for at least 1 minute preferably at bedtime: expectorate gel and do not eat, drink, or rinse for 30 minutes 100 mL 11 11/12/2022 folic acid 1 mg tablet Take 1,000 mcg by mouth daily. 08/28/2022 loratadine (CLARITIN) 10 mg tablet Take 1 tablet by mouth daily. 11/22/2021 magnesium 200 mg tablet Take 400 mg by mouth every morning before breakfast. metoprolol succinate (TOPROL-XL) 25 mg 24 hr tablet Take 1 tablet by mouth daily. 04/29/2023 metoprolol succinate (TOPROL-XL) 25 mg 24 hr tablet Take 25 mg by mouth daily. 10/06/2023 multivitamin chewable tablet Chew 1 tablet daily. triamcinolone (KENALOG) 0.1 % cream APPLY THIN LAYER TOPICALLY TWICE A DAY NEEDED TO RASH ON LEGS AND BODY 07/16/2022 documented as of this encounter Progress Notes * Dione Mobley P.A.-C., M.S. - 11/12/2023 11:30 AM CDT SUBJECTIVE DIAGNOSIS 1. Malignant Neoplasm Of Tongue Base (HCC) SUPERVISED BY: Serena Berger M.D. HISTORY OF PRESENT ILLNESS Mr. 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 His oncologic history is as follows: [...] 13. October 31, 2022: TSH 6.41 INTERVAL HISTORY: The patient was seen and examined today with Dr. Berger. The patient reports doing well overall. He reports stable decreased energy and rates his fatigue as6/10 in severity. He reports having cardioversion for atrial fibrillation performed approximately one month ago. His heart rate since that time has been within the normal range. He reports increased phlegm and needing to clear his throat over the past 2.5 months. He denies any blood in the phlegm. He denies any pain or difficulty with swallowing. He reports good taste. He reports poor dentition, but denies any acute changes or tooth pain. He is using fluoride as directed. He reports good tongue, jaw, and neck range of motion. He denies lymphedema. He denies unexpected weight gain, dry skin, or constipation. REVIEW OF SYSTEMS Review of systems was negative except as documented above. PATIENT REPORTED SYMPTOM SCREEN: FATIGUE (Scale: 0 = no fatigue; 10 = worst fatigue you can imagine): 6 PAIN (Scale: 0 = no pain; 10 = worst pain you can imagine): 4 OVERALL QUALITY OF LIFE (Scale: 0 = as bad as can be; 10 = as good as can be): 7 OBJECTIVE BP 123/75 (BP Location: Left arm, Patient Position: Sitting, Cuff Size: Regular) Pulse (!) 59 Temp 37.1 ??C (Temporal) Wt 89.5 kg BMI 27.17 kg/m?? PHYSICAL EXAMINATION General: Patient is alert and oriented and in no apparent distress. ENT: Good mouth opening. Good tongue range of motion. Moist mucous membranes of the oral cavity without visible lesions. Poor dentition. Neck: Good neck range of motion. No lymphedema. Lymph: No palpable cervical lymphadenopathy. ASSESSMENT / PLAN #1 Stage II (cT2, N2, M0, p16+) moderately differentiated left base of tongue squamous cell carcinoma s/p definitive chemoradiotherapy, completed September 28, 2020 #2 Submental lymphedema #3 Dental caries The patient is doing about the same overall. He had cardioversion performed approximately one week ago for atrial fibrillation with benefit. He reports increased phlegm and clearing of his throat over the past 2.5 months, but denies any difficulty swallowing or changes to nutritional or fluid intake. He is continuing to use fluoride as directed for dental care. The patient last saw Dr. Fox in ENT on January 07, 2023. He prefers continued follow-up with nasopharyngoscopy performed here instead. The patient is scheduled for a follow-up visit with Dr. Méndez on November 25, 2023 with thyroid lab work completed prior to that visit. We will order for a return visitto be scheduled here in 6 months. The patient will contact us with questions or concerns. He verbally expressed his understanding of the plan. EDUCATION: Ready to learn, no apparent learning barriers were identified; learning preferences include listening. Explained diagnosis and treatment plan; patient expressed understanding of the content. I personally spent 23 minutes in care of the patient today. Time includes both non face to face andface to face patient care. Signed by: Dione Mobley P.A.-C., M.S. 11/12/2023 11:53 AM CDT [facility] [address] [place] [address] Associated attestation - Serena Berger M.D. - 11/12/2023 3:32 PM CDT I saw and evaluated the patient and participated in the robledo portions of the service. I reviewed thedocumentation of Ms. Dione Mobley PA-C, MS and agree with the findings and plan. After topical decongestion and anesthesia with lidocaine and afrin, the flexible laryngoscope was inserted on the right side. The nasal cavity, nasopharynx, oropharynx, hypopharynx and larynx were normal. Normal vocal cord mobility. No worrisome lesions noted. A video should be placed in Qreads. Serena Berger M.D., 11/12/2023 documented in this encounter Plan of Treatment Scheduled Referrals Name Type Priority Associated Diagnoses Order Schedule Radiation Oncology office visit (clinic) Outpatient Referral Routine Once for 1 Occurrences starting 11/12/2023 until 11/12/2023 Radiation Oncology office visit (clinic) Outpatient Referral Routine Expected: 05/13/2024, Expires: 02/10/2025 documented as of this encounter Visit Diagnoses Diagnosis Malignant Neoplasm Of Tongue Base (HCC)- Primary documented in this encounter Care Teams Biology Tutor Relationship Specialty Start Date End Date Elsewhere, Pcp PCP - General Internal Medicine 01/15/22 documented as of this encounter
--- OUTSIDE RECORDS SUMMARY | 2024-02-03 11:15 | XMS_ITS | Encounter Summary ---
Author Name [facility] [place] [facility] [place] Address [address] [place] [id number] Care Team Providers Care Applique Cutter Name Role Phone PING VARGAS Primary Care [...] Name Patient's Relationship to Policy Galvan [employer] [facility] ([facility]) MEDICARE ADVANTAGE [facility] ([facility]) Aug 03, 2017 [id number] LUCAS THRASHER PATIENT MEDICARE ([facility]) MEDICARE (M) PART A May 03, 2013 PART A [id number] [phone] LUCAS THRASHER PATIENT MEDICARE ([facility]) MEDICARE (M) PART B May 03, 2013 PART B [id number] [phone] LUCAS THRASHER PATIENT Selected Encounter This section includes the information on record at [place] for the Encounter. Date/Time Encounter Type Encounter Description Reason Provider Source December 02, 2023 10:15 AM OFF/OP EST DECEMBER X REQ PHY/QHP EKG ICD-10-CM Z13.6 Encounter for screening for cardiovascular disorders SAVANNAH WERNER IHE Encounter Template Text not used by [place] Assessments - Encounter Diagnoses This section includes the primary and secondary diagnoses documented for the Encounter. Date/Time Primary/Secondary Diagnosis Diagnosis Name Provider Source December 02, 2023 10:18 AM PRIMARY Encounter for screening for cardiovascular disorders SAVANNAH WERNER ([facility]) Plan of Treatment: Future Appointments (+ 6 months) and Future Tests (+/- 45 days) The Plan of Treatment section includes future care activities for the patient from all [place] treatmentfacilities. This section includes future appointments and future orders which are active, pending or scheduled. Future Appointments This section includes appointments that were scheduled to occur 6 months from the date of the Encounter, up to a maximum of 20 appointments. The data comes from all [place] treatment facilities. Appointment Date/Time Appointment Type Appointme nt Facility Name December 11, 2023 11:00 AM AMBULATORY - MEDICINE [facility] Lab Results: +/- 30 days of the encounter This section includes the Chemistry and Hematology Lab Results on record with [place] for the patient. Radiology Reports and Pathology Reports are provided separately, in subsequent sections. Lab Results This section contains the Chemistry/Hematology Results that were resulted 30 days before or 30 daysafter the date of the Encounter. Date/Time Source Result Type Result - Unit Interpretation Reference Range Comment December 02, 2023 09:53 AM [facility] BASIC METABOLIC PANEL+MG Specimen Type: PLASMA No comment entered. Ordering Provider: YOAV CERDA Report Released Date/Time: Oct 06, 2023 12:51 PM Reporting Lab: [facility] [id number] Performing Lab: [facility] [id number] CREATININE 1.5 mg/dL H 0.7-1.2 UREA NITROGEN 21 mg/dL 8-26 GLUCOSE 96 mg/dL 70-100 SODIUM 139 mmol/L 136-145 POTASSIUM 4.4 mmol/L 3.5-5.1 CHLORIDE 104 mmol/L 98-107 CO2 26 mmol/L 22-29 CALCIUM 9.6 mg/dL 8.4-10.2 MAGNESIUM 1.8 mg/dL 1.6-2.6 ANION GAP 9 mmol/L 5-15 .CREAT EGFR(CKD-EPI ) 48 L >60 Vital Signs: All taken on the encounter date This section contains inpatient and outpatient Vital Signs collected on the date of the Encounter. Date/Time Temperature Pulse Blood Pressure Respiratory Rate SP02 Pain Height Weight Body Mass Index Source December 02, 2023 10:15 AM 60 137/71 16 100 [facility] ([facility]) Social History: Smoking Status (Most current) and Tobacco Use (All prior to encounter date) This section includes the most current, and the historical, smoking and tobacco- related health factors from the [place] facility where the Encounter took place. Current Smoking Status This section includes the most current smoking, or tobacco-related health factor, from the [place] facility where the Encounter took place. Date/Time Current Smoking Status Comment Facil ity Jun 05, 2023 10:00 AM VA-TOBACCO FORMER USER [place] ([facility]) Tobacco Use History This section includes a history of the smoking, or tobacco-related health factors, that were collected on or before the date of the Encounter. The data comes from the [place] facility where the Encounter took place. Date/Time Smoking Status/Tobacco Use Comment F acility Jun 05, 2023 10:00 AM VA-TOBACCO QUIT 15 YRS OR MORE [place] ([facility]) Jun 04, 2022 02:00 PM VA-TOBACCO FORMER USER [facility] ([facility]) Jun 04, 2022 02:00 PM VA-TOBACCO QUIT 15 YRS OR MORE [place] ([facility]) Jun 05, 2021 10:00 AM VA-TOBACCO FORMER USER [place] ([facility]) Jun 05, 2021 10:00 AM VA-TOBACCO QUIT 15 YRS OR MORE [place] ([facility]) May 23, 2020 11:00 AM VA-TOBACCO FORMER USER [place] ([facility]) May 23, 2020 11:00 AM VA-TOBACCO QUIT 15 YRS OR MORE [place] ([facility]) May 20, 2019 01:28 PM VA-TOBACCO FORMER USER [place] ([facility]) May 20, 2019 01:28 PM VA-TOBACCO QUIT 15 YRS OR MORE [place] ([facility]) Apr 28, 2018 11:47 AM [...] 09:10 AM FORMER TOBACCO USER 7Y OR [facility] ([facility])
--- OUTSIDE RECORDS SUMMARY | 2024-02-03 11:15 | XMS_ITS | Clinical Summary ---
Author Organization [facility] Address [address] [place] [address] Care Team Providers Care Principal Biostatistician Name Role Phone Elsewhere, Pcp Primary Care Provider Unavailabl e Source Comments Patient records contain information from all sites at [facility]. For routine questions regarding patient records, call [phone] during business hours, M-F 8:00 AM - 5:00 PM Central Time. Record requests for emergency care only can be directed to [phone] at any time.[facility] Allergies Active Allergy Reactions Criticality Noted Date [...] TO? TRIAMCINOLONE OR STOP. RESTART NEEDED. 07/16/2022 [facility] 08/05/2022 07/16/2022 Active folic acid 1 mg [...] 07/30/2020:Stage II(cT2, cN2, cM0, p16+) - Unsigned Encounters Date Type Department Care Team Description 11/12/2023 11:30 AM CDT Ancillary Procedure Department of Oncology 11/12/2023 11:07 AM CDT - 11/12/2023 3:32 PM CDT Hospital Encounter Department of Radiation Oncology in [place], [place] [address] [place] [address] Serena Berger M.D. 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 Plan of Treatment Health Maintenance Due Date Last Done Comments Abdominal Aortic Aneurysm (AAA) Screen 1948 CT Colonography 1948 Cologuard 1948 FIT 1948 Hepatitis C Screening 1950 Depression Screening (Annual PHQ-2) 08/03/2023 Fall Risk Screen (Annual) 08/03/2023 COVID-19 Vaccine ( season) 2023 06/05/2023, 05/20/2022, 06/07/2021, Additional history exists Fasting Glucose for Diabetes Screening 01/22/2024 01/21/2021, 01/10/2021, 07/13/2020, Additional history exists Influenza Vaccine (#1) 2024 , 05/20/2022, 05/23/2021, Additional history exists Pneumococcal vaccine (65+ years) (3 of 3 - PPSV23 or PCV20) 08/18/2024 08/18/2019, 07/11/2015, 06/07/2013, Additional history exists DTaP,Tdap,and Td Vaccines (3 - Td or Tdap) 12/31/2026 12/31/2016, 07/22/2007, 08/03/2004 Colonoscopy 07/19/2029 07/19/2019 Colorectal Cancer Screening 07/19/2029 Zoster Vaccines Completed 01/23/2022, 11/02, 05/14/2011 HPV Vaccines Aged Out No longer eligi ble based on patient's age to complete this topic Procedures Procedure Name Priority Date/Time Associated Diagnosis [...] Recently Relevant to Health Maintenance Care Teams Principal Biostatistician Relationship Specialty Start Date End Date Elsewhere, Pcp PCP - General Internal Medicine 01/15/22
[2024-02-03 11:25] LABS: Chloride* 105 mmol/L (96-114); Sodium* 137 mmol/L (135-149)
[2024-02-03 11:27] LABS: Slide Review Reflex No
[2024-02-03 11:28] LABS: Anion Gap 4 mEq/L (7-15); Carbon Dioxide* 28 mmol/L (20-32); Creatinine* 1.4 mg/dL (0.5-1.5); Est. Creatinine Clearance* 48.56; Estimated Glomerular Filt Rate 52 ml/min; INR 1.15 (0.91-1.10); Prothrombin Time 15.5 Seconds
[2024-02-03 11:29] LABS: Blood Urea Nitrogen* 24 mg/dL (7-30); Glucose* 96 mg/dL (60-115)
[2024-02-03 11:37] LABS: Ethanol* < 0.01 % (0.01-0.03)
[2024-02-03] MEDS: 0.9 % SODIUM CHLORIDE 500 ML 500 ML IV (11:43)
== END 2024-02-03 15:20 | disposition home or self-care (01) ==
PROVIDERS: Emergency Provider Emergency Medicine; PCP Internal Medicine
DX: R42 Dizziness and giddiness (principal)
CPT/HCPCS: 36415; 71046; 80048; 82077; 84443; 84484; 85025; 85610; 99284; J7030

== ENCOUNTER 2024-05-25 11:00 | Outpatient (RCR) | payer MEDICARE, SELFPAY ==
--- NOTE | 2023-12-07 08:09 | ONC.NURNOTE ---
called to cancel today and tomorrow. states has a cold.
--- NOTE | 2024-01-05 09:43 | PC.NURSE ---
Received a call from Filomena Inkerwang, stating that they have been unsuccessful in reaching Dylan in preparation for his PET scan on , 01/07/2024. They have left voice and text messages with no response. RN noted that pt is also on for labs at [facility] on and to see MD next week. This RN called Dylan and left a detailed message asking him to call Inkerwang back. Provided him with that number. Let him know that if his PET scan gets cancelled, we will also need to re-schedule Dr. Méndez appt. Will also update MD [facility] RN.
[2024-01-21 14:42] LABS: Eosinophils Percent Auto 3.5 % (0.0-7.0); Hematocrit 39.6 % (37.0-53.0); Hemoglobin* 13.1 gm/dL (13.5-17.5); Lymphocytes Percent Auto 20.7 % (20-44); Mean Corpuscular HGB Conc 33 gm/dL (32-36); Mean Corpuscular Hemoglobin 33 pg (26-34); Mean Corpuscular Volume 101 fL (80-100); Monocytes Percent Auto 11.8 % (0.0-11.0); Platelet Count* 169 K/uL (140-440); RDW Coefficient of Variation % 12.9 % (11.5-15.5); Red Blood Count 3.92 m/uL (4.30-5.90); White Blood Count* 3.97 K/uL (4.50-11.00)
[2024-01-21 14:44] LABS: Slide Review Reflex No
[2024-01-21 14:54] LABS: Albumin* 4.5 g/dL (3.3-5.0); Chloride* 103 mmol/L (96-114); Potassium* 4.8 mmol/L (3.6-5.1); Sodium* 137 mmol/L (135-149)
[2024-01-21 14:56] LABS: Creatinine* 1.5 mg/dL (0.5-1.5); Estimated Glomerular Filt Rate 48 ml/min
[2024-01-21 14:57] LABS: Alanine Aminotransferase* 23 U/L (4-50); Alkaline Phosphatase* 59 U/L (40-150); Anion Gap 5 mEq/L (7-15); Aspartate Amino Transferase* 33 U/L (12-35); Bilirubin Total* 0.8 mg/dL (0.1-1.5); Blood Urea Nitrogen* 23 mg/dL (7-30); Calcium* 9.5 mg/dL (8.4-10.6); Carbon Dioxide* 29 mmol/L (20-32); Glucose* 101 mg/dL (60-115); Total Protein* 7.3 g/dL (6.0-8.3)
[2024-05-23 11:37] LABS: Basophils Percent Auto 1.8 % (0.0-3.0); Eosinophils Percent Auto 2.5 % (0.0-7.0); Hematocrit 39.8 % (37.0-53.0); Hemoglobin* 13.6 gm/dL (13.5-17.5); Immature Granulocytes Pct Auto 0.3 %; Lymphocytes Percent Auto 18.8 % (20-44); Mean Corpuscular HGB Conc 34 gm/dL (32-36); Mean Corpuscular Hemoglobin 34 pg (26-34); Mean Corpuscular Volume 99 fL (80-100); Monocytes Percent Auto 8.8 % (0.0-11.0); Neutrophils Percent Auto 67.8 % (42.0-72.0); Platelet Count* 157 K/uL (140-440); Red Blood Count 4.04 m/uL (4.30-5.90)
[2024-05-23 11:42] LABS: Slide Review Reflex No
[2024-05-23 11:52] LABS: Albumin* 4.3 g/dL (3.3-5.0); Chloride* 102 mmol/L (96-114); Potassium* 4.2 mmol/L (3.6-5.1); Sodium* 135 mmol/L (135-149)
[2024-05-23 11:55] LABS: Alanine Aminotransferase* 18 U/L (4-50); Alkaline Phosphatase* 51 U/L (40-150); Anion Gap 7 mEq/L (7-15); Aspartate Amino Transferase* 26 U/L (12-35); Bilirubin Total* 0.7 mg/dL (0.1-1.5); Blood Urea Nitrogen* 23 mg/dL (7-30); Calcium* 9.1 mg/dL (8.4-10.6); Carbon Dioxide* 26 mmol/L (20-32); Creatinine* 1.5 mg/dL (0.5-1.5); Estimated Glomerular Filt Rate 48 ml/min; Glucose* 107 mg/dL (60-115)
== END 2024-06-11 23:59 | disposition home or self-care (01) ==
LOC: CCIC 11:00
PROVIDERS: Physician Assistant; PCP Internal Medicine; Referring Provider Internal Medicine; Visit Provider Internal Medicine Hematology & Oncology
DX: C01 Malignant neoplasm of base of tongue (principal); R79.89 Other specified abnormal findings of blood chemistry; I48.91 Unspecified atrial fibrillation; Z79.01 Long term (current) use of anticoagulants; D69.6 Thrombocytopenia, unspecified; L56.8 Other specified acute skin changes due to ultraviolet radiation
CPT/HCPCS: 36415; 78815; 80053; 84443; 85025; 99213; 99214; G0463; A9552

== ENCOUNTER 2024-11-24 14:51 | Outpatient (CLI) | payer MEDICARE, SELFPAY ==
--- NOTE | 2024-11-24 15:00 | CRLHL7_ITS ---
For Patients: As a result of the Century Cures Act, medical imaging exams and procedure reports are released immediately into your electronic medical record. You may view this report before your referring provider. If you have questions, please contact your health care provider. Indication: Malignant neoplasm of head, face and neck Technique: CT Chest 98CC ISOVUE 370 intravenous contrast Please note that all CT scans at this facility use dose modulation, iterative reconstruction, and/or weight-based dosing when appropriate to reduce radiation dose to as low as reasonably achievable. Comparison: 02/05/2023 Findings: Visualized thyroid gland is normal. Calcified subcarinal lymph nodes are again noted. Upper abdomen is unremarkable. Tortuosity of the thoracic aorta. Atherosclerotic changes. No suspicious lymph nodes. Calcified granuloma within the left lower lobe. Mild scarring within both lower lobes. No vertebral body compression fracture. Previously noted left lower lobe infiltrate since cleared. Impression: No evidence of metastatic disease. Please note that all CT scans at this facility use dose modulation, iterative reconstruction, and/or weight-based dosing when appropriate to reduce radiation dose to as low as reasonably achievable. Dictated by Travon Ch MD @ 11/25/2024 12:24:04 PM (Electronically Signed)
--- NOTE | 2024-11-24 15:00 | CRLHL7_ITS ---
For Patients: As a result of the Century Cures Act, medical imaging exams and procedure reports are released immediately into your electronic medical record. You may view this report before your referring provider. If you have questions, please contact your health care provider. INDICATION: Malignant neoplasm of head, face and neck. Tongue base neoplasm status post chemo-radiation TECHNIQUE: CT of the neck with 98 mL Isovue 370 iodinated contrast agent IV. Coronal and sagittal reconstructions are included. COMPARISON: 10/27/2022 CT FINDINGS: There is no mass or other lesion within the soft tissues of the suprahyoid or infrahyoid neck. No lymphadenopathy. The oral cavity, nasopharyngeal, oropharyngeal and hypopharyngeal mucosal spaces are normal. No periapical dental disease. The supraglottic, glottic and infraglottic larynx are normal. The airway including the trachea is normal and is patent. The parotid glands, submandibular and sublingual glands are normal in appearance. The thyroid gland is normal in appearance. Periapical lucency adjacent to the right mandibular 2nd molar tooth which contains large cavity in the crown. Periapical lucency adjacent to the left maxillary 2nd premolar roots. The vascular structures opacify normally with contrast material. Perforation of the nasal septum. No suspicious lytic or blastic osseous lesions. Severe interspace narrowing at C4-5, C5-6 and C6-7. Retrolisthesis at C5-6 and C6-7. Visualized paranasal sinuses and mastoid air cells are clear. Visualized orbital and intracranial contents are normal. Cataract surgery changes. Supraclavicular regions, mediastinum and soft tissues of the imaged chest wall are normal. Visualized portions of the upper lungs are clear. IMPRESSION: 1. No suspicious enhancement or neck mass. No evidence of recurrent or residual neoplasm in the tongue base. 2. No evidence of acute inflammation. 3. No cervical lymphadenopathy. Please note that all CT scans at this facility use dose modulation, iterative reconstruction, and/or weight-based dosing when appropriate to reduce radiation dose to as low as reasonably achievable. Dictated by Travon Hsu MD @ 11/25/2024 11:45:33 AM (Electronically Signed)
== END 2024-11-24 14:52 | disposition home or self-care (01) ==
PROVIDERS: PCP Internal Medicine; Visit Provider Internal Medicine Hematology & Oncology
DX: C76.0 Malignant neoplasm of head, face and neck (principal)
CPT/HCPCS: 70491; 71260; Q9967

== ENCOUNTER 2024-12-01 09:00 | Outpatient (RCR) | payer MEDICARE, SELFPAY ==
[2024-11-23 13:57] LABS: Hematocrit* 43.1 % (37.0-53.0); Hemoglobin* 14.5 gm/dL (13.5-17.5); Immature Granulocytes Abs Auto 0.00 K/uL (0.00-0.30); Immature Granulocytes Pct Auto 0.0 %; Mean Corpuscular HGB Conc 34 gm/dL (32-36); Mean Corpuscular Hemoglobin 33 pg (26-34); Mean Corpuscular Volume 98 fL (80-100); RDW Coefficient of Variation % 12.4 % (11.5-15.5); Red Blood Count* 4.38 m/uL (4.30-5.90); White Blood Count* 3.83 K/uL (4.50-11.00)
[2024-11-23 14:00] LABS: Lymphocytes Absolute Auto 1.00 K/uL (0.90-2.90); Slide Review Reflex No
[2024-11-23 14:19] LABS: Albumin* 4.5 g/dL (3.3-5.0); Chloride* 102 mmol/L (96-114); Potassium* 4.7 mmol/L (3.6-5.1); Sodium* 137 mmol/L (135-149)
[2024-11-23 14:21] LABS: Blood Urea Nitrogen* 25 mg/dL (7-30); Creatinine* 1.5 mg/dL (0.5-1.5); Estimated Glomerular Filt Rate 48 ml/min
[2024-11-23 14:22] LABS: Alanine Aminotransferase* 19 U/L (4-50); Alkaline Phosphatase* 57 U/L (40-150); Anion Gap 7 mEq/L (7-15); Aspartate Amino Transferase* 32 U/L (12-35); Bilirubin Total* 0.6 mg/dL (0.1-1.5); Calcium* 9.3 mg/dL (8.4-10.6); Carbon Dioxide* 28 mmol/L (20-32); Glucose* 106 mg/dL (60-115); Total Protein* 7.2 g/dL (6.0-8.3)
== END 2025-05-22 23:59 | disposition home or self-care (01) ==
LOC: CCIC 09:00
PROVIDERS: Internal Medicine Hematology & Oncology; PCP Internal Medicine; Referring Provider Internal Medicine; Visit Provider Internal Medicine Hematology & Oncology
DX: C01 Malignant neoplasm of base of tongue (principal); R79.89 Other specified abnormal findings of blood chemistry; I48.91 Unspecified atrial fibrillation; Z79.01 Long term (current) use of anticoagulants; D69.6 Thrombocytopenia, unspecified; F10.20 Alcohol dependence, uncomplicated
CPT/HCPCS: 36415; 80053; 83615; 84443; 85025; 99213; 99214; G0463

== ENCOUNTER 2025-01-18 08:49 | Outpatient (CLI) | payer OTHER, MEDICARE, SELFPAY | END 2025-01-18 08:50 | disposition home or self-care (01) | LOC: RAD 08:52 | PROVIDERS: PCP Internal Medicine; Visit Provider Physician Assistant | DX: R06.09 Other forms of dyspnea (principal); I35.0 Nonrheumatic aortic (valve) stenosis | CPT/HCPCS: 93306 ==

== ENCOUNTER 2025-05-30 09:38 | Outpatient (CLI) | payer MEDICARE, SELFPAY ==
--- NOTE | 2025-05-30 10:00 | CRLHL7_ITS ---
For Patients: As a result of the Century Cures Act, medical imaging exams and procedure reports are released immediately into your electronic medical record. You may view this report before your referring provider. If you have questions, please contact your health care provider. Indication: BASE OF TONGUE CANCER SURVEILLANCE Technique: CT Chest 105CC ISOVUE 370 Please note that all CT scans at this facility use dose modulation, iterative reconstruction, and/or weight-based dosing when appropriate to reduce radiation dose to as low as reasonably achievable. Comparison: 11/24/2024 Findings: The visualized thyroid is within normal limits. Upper abdomen is unremarkable. Calcified granuloma within the left lower lobe. Calcified subcarinal and left hilar lymph nodes. No enlarged mediastinal, hilar or axillary lymph nodes. No fracture or intrinsic osseous lesion. No suspicious pulmonary nodule. Mild dependent scarring. No infiltrate or edema. No effusion or pneumothorax. Impression: Sequela of granulomatous disease. No adenopathy or suspicious pulmonary nodule. Please note that all CT scans at this facility use dose modulation, iterative reconstruction, and/or weight-based dosing when appropriate to reduce radiation dose to as low as reasonably achievable. Dictated by Travon Ch MD @ 05/30/2025 12:09:52 PM (Electronically Signed)
--- NOTE | 2025-05-30 11:00 | CRLHL7_ITS ---
For Patients: As a result of the Century Cures Act, medical imaging exams and procedure reports are released immediately into your electronic medical record. You may view this report before your referring provider. If you have questions, please contact your health care provider. Indication: Base of tongue cancer, surveillance. Technique: Contrast-enhanced CT of the neck with multiplanar reconstruction utilizing 105 cc Isovue 370 iodinated intravenous contrast. Comparison: CT soft tissue neck dated 11/24/2024. Findings: No suspicious mucosal based mass or enhancement. No pathologically enlarged cervical lymph nodes. Normal parotid and submandibular glands. Unremarkable thyroid. The lung apices are clear. There is atherosclerotic calcification of the carotid bifurcations. No aggressive osseous lesion is identified. Multiple scattered dental caries are noted. Moderate mucosal thickening is noted within the xvvls-[id number]-[id number]-left maxillary alveolar recesses. Impression: 1. No suspicious mucosal based mass or enhancement. 2. No pathologically enlarged cervical lymph nodes. 3. Multiple scattered dental caries with mucosal thickening in the maxillary alveolar recesses. Please note that all CT scans at this facility use dose modulation, iterative reconstruction, and/or weight-based dosing when appropriate to reduce radiation dose to as low as reasonably achievable. Dictated by Yung Edgar MD @ 05/31/2025 9:26:17 AM (Electronically Signed)
== END 2025-05-30 09:39 | disposition home or self-care (01) ==
LOC: CT 09:38
PROVIDERS: PCP Internal Medicine; Visit Provider Internal Medicine Hematology & Oncology
DX: C02.9 Malignant neoplasm of tongue, unspecified (principal)
CPT/HCPCS: 70491; 71260; Q9967

== ENCOUNTER 2025-07-07 10:39 | Outpatient (CLI) | payer MEDICARE, SELFPAY ==
--- NOTE | 2025-07-07 13:11 | P.ANES_ITS ---
Anesthesia Charges Start Date/Time Anesthesia Start Date: 07/07/25 Anesthesia Start Time: 12:05 Stop Date/Time Anesthesia Stop Date: 07/07/25 Anesthesia Stop Time: 13:08 Summary Extremes of Age - Over 70 or under 1: ENGINEER SECOND ASSISTANT Coding CPT Codes CPT Codes: JORJE LWR INTST NDSC NOS - [id number] ([id number]) P2 - PATIENT W/MILD SYST DISEASE, QK - SOLAR INSTALLATION HELPER 2-4 CNCRNT ANEJoaquin PROC, QX - ENGINEER SECOND ASSISTANT SVC W/ MD MED DIRECTION Additional Codes: Summary - Extremes of Age - Over 70 or under 1: ENGINEER SECOND ASSISTANT ([id number])
--- NOTE | 2025-07-07 13:11 | W.ANESCHARGE ---
Anesthesia Charges Start Date/Time Anesthesia Start Date: 07/07/25 Anesthesia Start Time: 12:05 Stop Date/Time Anesthesia Stop Date: 07/07/25 Anesthesia Stop Time: 13:08 Summary Extremes of Age - Over 70 or under 1: COMPOSITE MECHANIC Coding CPT Codes CPT Codes: JORJE LWR INTST NDSC NOS - 51807 ([id number]) P2 - PATIENT W/MILD SYST DISEASE, QK - HORSE FARM MANAGER 2-4 CNCRNT ANEJoaquin PROC, QX - COMPOSITE MECHANIC SVC W/ MD MED DIRECTION Additional Codes: Summary - Extremes of Age - Over 70 or under 1: COMPOSITE MECHANIC ([id number])
--- NOTE | 2025-07-07 13:53 | P.ANES_ITS ---
Anesthesia Charges Start Date/Time Anesthesia Start Date: 07/07/25 Anesthesia Start Time: 12:05 Stop Date/Time Anesthesia Stop Date: 07/07/25 Anesthesia Stop Time: 13:08 Summary Extremes of Age - Over 70 or under 1: MDA Coding CPT Codes CPT Codes: ANES LWR INTST NDSC NOS - [id number] ([id number]) P2 - PATIENT W/MILD SYST DISEASE, QK - DRILL OPERATOR PNEUMATIC 2-4 CNCRNT ANES PROC, QX - PSYCHOLOGICAL TESTS SALES AGENT SVC W/ MD MED DIRECTION Additional Codes: Summary - Extremes of Age - Over 70 or under 1: MDA ([id number])
--- NOTE | 2025-07-07 13:53 | W.ANESCHARGE ---
Anesthesia Charges Start Date/Time Anesthesia Start Date: 07/07/25 Anesthesia Start Time: 12:05 Stop Date/Time Anesthesia Stop Date: 07/07/25 Anesthesia Stop Time: 13:08 Summary Extremes of Age - Over 70 or under 1: MDA Coding CPT Codes CPT Codes: ANES LWR INTST NDSC NOS - [id number] ([id number]) P2 - PATIENT W/MILD SYST DISEASE, QK - PATROL INSPECTOR 2-4 CNCRNT ANES PROC, QX - TIMBER DEADENER SVC W/ MD MED DIRECTION Additional Codes: Summary - Extremes of Age - Over 70 or under 1: MDA ([id number])
== END 2025-07-07 10:40 | disposition home or self-care (01) ==
PROVIDERS: PCP Internal Medicine; Visit Provider Internal Medicine Gastroenterology
DX: D12.0 Benign neoplasm of cecum (principal); D12.2 Benign neoplasm of ascending colon; D12.4 Benign neoplasm of descending colon; Q43.8 Other specified congenital malformations of intestine; Z86.0100 Personal history of colon polyps, unspecified
CPT/HCPCS: 00811; 45385; 99100; J2704